=== PATIENT | male | born 1975 | race Caucasian/White ===

== ENCOUNTER → 2016-12-18 11:30 | Inpatient (IN) | payer OTHER ==
[2015-10-07 22:00] VITALS: BP 179/74; PULSE 114; PULSE 115; RESP 12; TEMP 98.1; O2SAT 100
[2015-10-07 22:17] VITALS: O2SAT 95
[2015-10-07] MEDS: HYDROmorphone HCL PF 2 MG/ML VIAL IV PRN (22:18)
[2015-10-08] VITALS (11 sets, daily range): BP systolic 132–164; BP diastolic 64–87; PULSE 79–105; RESP 13–24; TEMP 97.6–98.4; O2SAT 92–99
[2015-10-08 03:55] LABS: HEMATOCRIT 21.7 % (39.0-51.0); MEAN CELL VOLUME 75.8 FL (80.0-100.0); MEAN CORPUSCULAR HEMOGLOBIN 24.9 PG (27.0-34.0); MEAN CORPUSCULAR HGB CONC 32.9 % (32.0-36.0); PLATELET COUNT 193 TH/MM3 (150-450); RED BLOOD COUNT 2.87 MIL/MM3 (4.50-5.90); RED CELL DISTRIBUTION WIDTH 17.1 % (11.6-17.2); WHITE BLOOD COUNT 10.4 TH/MM3 (4.0-11.0)
[2015-10-08 04:00] LABS: REVIEW FLAG FINAL
[2015-10-08 04:04] LABS: ALT (GPT) 44 U/L (12-78); ANION GAP 4 MEQ/L (5-15); AST (GOT) 59 U/L (15-37); BICARBONATE 31.2 MEQ/L (21.0-32.0); BLOOD UREA NITROGEN 18 MG/DL (7-18); CHLORIDE 105 MEQ/L (98-107); GLOMERULAR FILTRATION RATE 114 ML/MIN (>89); POTASSIUM 4.4 MEQ/L (3.5-5.1); SODIUM (NA) 140 MEQ/L (136-145)
[2015-10-08 04:06] LABS: ALKALINE PHOSPHATASE 51 U/L (45-117); TOTAL BILIRUBIN ADULT 1.1 MG/DL (0.2-1.0)
[2015-10-08] MEDS: HYDROmorphone HCL PF 2 MG/ML VIAL IV PRN ×4 (05:54→20:58)
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
[2015-10-08] MEDS: PANTOPRAZOLE SODIUM 40 MG VIAL IV PUSH SCH (09:51)
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
[2015-10-09] VITALS (8 sets, daily range): BP systolic 137–179; BP diastolic 61–83; PULSE 72–115; RESP 17–22; TEMP 98–98.7; O2SAT 91–97
[2015-10-09] MEDS: HYDROmorphone HCL PF 2 MG/ML VIAL IV PRN ×5 (01:42→20:15)
[2015-10-09] MEDS: PANTOPRAZOLE SODIUM 40 MG VIAL IV PUSH SCH (09:01)
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
--- NOTE | 2015-10-09 16:39 | HHI.PR ---
Subjective Subjective Notes No acute changes. Special bed already in place. Objective Vitals/I&O Vital Signs Date Time Temp Pulse Resp B/P Pulse Ox O2 Delivery O2 Flow Rate FiO2 10/09/15 14:00 106 10/09/15 12:00 98.4 18 149/74 95 10/09/15 07:00 Nasal Cannula 2.00 Radiology Last Impressions Knee X-Ray 10/08/15 0000 Signed Impressions: Service Date/Time: Thursday, October 08, 2015 10:21 - CONCLUSION: No significant change in the severely comminuted fracture involving the distal femur. Anthony Billy MD Hand X-Ray 10/08/15 0000 Signed Impressions: Service Date/Time: Thursday, October 08, 2015 05:22 - CONCLUSION: Debris within the soft tissues of the proximal fourth digit. John Mcdonald MD Lungs: Clear A/P Assessment and Plan Assessment: Super Obese tspine fx femur fx Discussed with Dr. Herbert; he will attempt to image with C-arm to assess whether pedicle screws can be placed. Plan: Transfer to floor Davie Barron MD Oct 09, 2015 16:39
[2015-10-10] VITALS: BP 141/74; PULSE 116; RESP 19; TEMP 97; O2SAT 97
[2015-10-10] MEDS: HYDROmorphone HCL PF 2 MG/ML VIAL IV PRN ×6 (00:10→21:56)
[2015-10-10 04:30] VITALS: BP 149/72; PULSE 103; RESP 20; TEMP 97.5; O2SAT 94
[2015-10-10 08:00] VITALS: BP 158/73; PULSE 111; RESP 18; TEMP 96.8; O2SAT 93
[2015-10-10] MEDS: PANTOPRAZOLE SODIUM 40 MG VIAL IV PUSH SCH (08:10)
[2015-10-10 12:00] VITALS: BP 176/74; PULSE 78; RESP 18; TEMP 97.4; O2SAT 92
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
[2015-10-10 16:00] VITALS: BP 165/96; PULSE 104; RESP 18; TEMP 96.5; O2SAT 95
[2015-10-10] MEDS: ACETAMINOPHEN/HYDROcodone 325 MG/5 MG TAB PO PRN (19:34)
[2015-10-10 20:00] VITALS: BP 149/67; PULSE 84; RESP 24; TEMP 96.5; O2SAT 95
[2015-10-11] VITALS (11 sets, daily range): BP systolic 132–170; BP diastolic 58–97; PULSE 89–108; RESP 20–24; TEMP 96.1–98.7; O2SAT 92–100
[2015-10-11] MEDS: ACETAMINOPHEN/HYDROcodone 325 MG/5 MG TAB PO PRN (01:35)
[2015-10-11] MEDS: HYDROmorphone HCL PF 2 MG/ML VIAL IV PRN (02:19)
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
[2015-10-11] MEDS: PANTOPRAZOLE SODIUM 40 MG VIAL IV PUSH SCH (09:00)
--- NOTE | 2015-10-11 11:22 | PD.RAD ---
Post Procedure Progress Note Pre Procedure Diagnosis: (1) Trauma Post Procedure Diagnosis: (1) Trauma Procedure Date: Oct 11, 2015 Supervising Radiologist: Andrei Alva Proceduralist/Assist: RT Ludin(R)() Anesthesia: Local, Conscious Sedation Plan of Activity Patient to Unit: Critical Care Patient Condition: Critical See PACS Report for procedural detail/treatment Vascular-Venous Procedure Procedure 1 Procedure(s): Permanent IVC Filter Access Access Site(s): Right Jugular Vein Closure Site(s): Right manual pressure Additional Detail: Duran VenaTech LP filter placed Andrei Alva MD Oct 11, 2015 11:22
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
[2015-10-11 12:08] LABS: BICARBONATE 29.4 MEQ/L (21.0-32.0); POTASSIUM 4.2 MEQ/L (3.5-5.1)
[2015-10-11 13:20] LABS: HEMATOCRIT 22.4 % (39.0-51.0); MEAN CELL VOLUME 74.1 FL (80.0-100.0); MEAN CORPUSCULAR HEMOGLOBIN 24.8 PG (27.0-34.0); MEAN CORPUSCULAR HGB CONC 33.5 % (32.0-36.0); PLATELET COUNT 207 TH/MM3 (150-450); RED BLOOD COUNT 3.02 MIL/MM3 (4.50-5.90); WHITE BLOOD COUNT 8.3 TH/MM3 (4.0-11.0)
[2015-10-11] MEDS: ceFAZolin 2 GM PREMIX 50 ML ONE (14:10)
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
--- NOTE | 2015-10-11 16:16 | PD.OP ---
cc: Sudheer Garcia MD Operative Report Date of Surgery: Oct 11, 2015 Preoperative Diagnosis: Displaced left distal femur intra-articular fracture Postoperative Diagnosis: Procedure: ORIF left distal femur Anesthesia: GETA Surgeon: Sudheer Garcia Radiologist Physician(s): Lewis Carey PA-C The surgical procedure was assisted by my physician assistant community manager. My P.A. presence was necessary throughout this case for the manipulation and positioning of the surgical extremity. My P.A. was assisting me throughout the duration of this procedure. The skill set of a physician assistant community manager was medically necessary to complete this procedure. During the surgical case the certified surgical assistant was working at the back table and the physician assistant community manager was directly assisting me. Operation and Findings: Informed consent was obtained, operative site was marked. Patient was brought to the OR, placed on OR table, and given IV sedation with GETA. IV antibiotics were administered and timeout procedure was performed. The operative leg was prepped with alcohol, followed with Hibiclens, draped in usual sterile fashion. A timeout procedure was performed. The procedure began with a 12-inch incision over the lateral aspect of the distal femur. Subcutaneous tissue was dissected with Bovie. The subcutaneous layer was approximately 3 inches thick. A Charnley retractor was used to help retract soft tissue. Iliotibial band was split in line with fibers. At this point the fracture was visualized. Traction was applied. Fracture was manipulated. The fracture reduced into excellent alignment. Steinmann pins were used to hold provisional fixation. At this point attention was turned to plate placement. A lateral condylar plate placed along the lateral aspect of the femur.. The plate was placed underneath the vastus lateralis. Steinmann pins were used to hold the plate to bone. Multiplanar fluoroscopy confirmed appropriate placement of plate. Multiple 4.5 cortical screws were now placed and the plate was compressed to bone. Multiple locking screws were now placed in the distal segment of the distal femur. Additional locking screws were placed into the femoral shaft. All screws were predrilled and premeasured for appropriate length. Final fluoroscopy revealed excellent alignment of fracture with well-placed hardware. Wound was thoroughly irrigated. Fascia was closed with #1 Vicryl. Subcutaneous tissue was closed with 3-0 Vicryl. Skin was closed with zaheer. Sterile dressings were applied. The patient was placed into a splint and transferred to recovery in stable condition. Needle and sponge counts were correct. This patient's obesity made the procedure extremely difficult. Patient weighs over 600 pounds. The special bariatric bed was utilized. 2 extra assistance were required for the duration of this procedure to help manipulate patient's extremely large extremities. Approximately 6 release were required for patient transfer. Sudheer Garcia MD Oct 11, 2015 16:16
[2015-10-11] MEDS: LACTATED RINGER'S 1000 ML INJ 1,000 ML IV SCH (17:40)
--- NOTE | 2015-10-11 18:00 | RADRPT ---
EXAM DATE/TIME: 10/11/2015 17:34 [facility] COMPARISON: CHEST SINGLE AP, October 05, 2015, 9:41. INDICATIONS : Respiratory Distress. MEDICAL HISTORY : Unobtainable. SURGICAL HISTORY : Unobtainable. ENCOUNTER: Subsequent ACUITY: 1 week PAIN SCORE: Non-responsive. LOCATION: Bilateral chest FINDINGS: There is an endotracheal tube in place which appears to be in good position and there is no pneumotho rax. There is haziness overlying the right hemithorax. The left upper lung is clear. There is some pa renchymal infiltrate left lung base. The heart size is diffusely enlarged but stable compared to the prior study. The bony structures are stable. CONCLUSION: The endotracheal tube appears to be in good position. No pneumothorax. Haziness over the right hemith orax which could be a right effusion. There is suggestion of an infiltrate in the left lung base. Anthony Billy MD on October 11, 2015 at 17:57 Board Certified Radiologist. This report was verified electronically.
[2015-10-11 18:09] LABS: BLOOD GAS BASE EXCESS 0.3 mmol/L (-2-2); BLOOD GAS CARBOXYHEMOGLOBIN 3.1 % (0-4); BLOOD GAS HCO3 27 mmol/L (22-26); BLOOD GAS METHEMOGLOBIN 0.8 % (0-2); BLOOD GAS O2 HGB SATURATION 94 % (90-100); BLOOD GAS PCO2 72 mmHg (38-42); BLOOD GAS PO2 118 mmHg (61-120); BLOOD GAS TOTAL HGB 7.4 G/DL (12.0-16.0); TEMP CORR TO 98.6
[2015-10-11 18:10] LABS: OXYGEN DEVICE VENTILATOR
[2015-10-11 18:11] LABS: DRAW SITE ART LINE; FIO2 70 %; STAT NO; VENT SETTINGS CPAP 15/5
[2015-10-11 18:16] LABS: REVIEW FLAG FINAL
[2015-10-11 18:43] LABS: BLOOD GAS BASE EXCESS 1.1 mmol/L (-2-2); BLOOD GAS CARBOXYHEMOGLOBIN 3.2 % (0-4); BLOOD GAS HCO3 26 mmol/L (22-26); BLOOD GAS METHEMOGLOBIN 0.8 % (0-2); BLOOD GAS O2 HGB SATURATION 89 % (90-100); BLOOD GAS OXYGEN CONTENT 10.2 Vol % (12.0-20.0); BLOOD GAS PCO2 52 mmHg (38-42); BLOOD GAS PO2 74 mmHg (61-120); BLOOD GAS TOTAL HGB 8.1 G/DL (12.0-16.0); TEMP CORR TO 98.6
[2015-10-11 18:44] LABS: CRITICAL VALUE YES; DRAW SITE ART LINE; FIO2 40 %; OXYGEN DEVICE VENTILATOR; STAT NO; VENT SETTINGS A/C20/650 PEEP8
[2015-10-11] MEDS: DOCUSATE SODIUM 50 MG/SENNA 8.6 MG TAB PO SCH (20:50)
[2015-10-11] MEDS: ceFAZolin 2 GM PREMIX 50 ML IV SCH (21:00)
[2015-10-11] MEDS: PCA - TOTAL MG MORPHINE DELIVERED PER SHIFT SCH (22:00)
[2015-10-11] MEDS: PROPOFOL 1000 MG/100 ML INJ 100 ML IV SCH (23:41)
[2015-10-12] VITALS (19 sets, daily range): BP systolic 112–148; BP diastolic 50–64; PULSE 86–116; RESP 18–24; TEMP 98.2–100.2; O2SAT 90–97
[2015-10-12] MEDS: PROPOFOL 1000 MG/100 ML INJ 100 ML IV SCH ×3 (02:45→07:38)
[2015-10-12] MEDS: VANCOMYCIN INJ 1,000 MG in SODIUM CHLOR 0.9% 250 ML INJ 250 ML IV SCH ×2 (02:48→14:41)
[2015-10-12] MEDS: CHLORHEXIDINE GLUCONATE 2 % 1 PACK (2 CLOTHS) TOP SCH (04:00)
[2015-10-12 05:14] LABS: AUTOMATED NEUTROPHIL # 9.7 TH/MM3 (1.8-7.7); BASOPHIL # 0.1 TH/MM3 (0-0.2); BASOPHIL % 0.5 % (0.0-2.0); EOSINOPHIL % 0.3 % (0.0-4.0); HEMATOCRIT 23.6 % (39.0-51.0); LYMPH % 8.1 % (9.0-44.0); LYMPHOCYTE # 0.9 TH/MM3 (1.0-4.8); MEAN CELL VOLUME 76.7 FL (80.0-100.0); MEAN CORPUSCULAR HEMOGLOBIN 25.5 PG (27.0-34.0); MEAN CORPUSCULAR HGB CONC 33.2 % (32.0-36.0); MONO % 5.5 % (0.0-8.0); NEUT % 85.6 % (16.0-70.0); PLATELET COUNT 216 TH/MM3 (150-450); RED BLOOD COUNT 3.07 MIL/MM3 (4.50-5.90); RED CELL DISTRIBUTION WIDTH 20.1 % (11.6-17.2); WHITE BLOOD COUNT 11.4 TH/MM3 (4.0-11.0)
[2015-10-12 05:26] LABS: BLOOD GAS CARBOXYHEMOGLOBIN 3.3 % (0-4); BLOOD GAS HCO3 29 mmol/L (22-26); BLOOD GAS METHEMOGLOBIN 0.8 % (0-2); BLOOD GAS O2 HGB SATURATION 89 % (90-100); BLOOD GAS OXYGEN CONTENT 9.6 Vol % (12.0-20.0); BLOOD GAS PCO2 48 mmHg (38-42); BLOOD GAS PO2 66 mmHg (61-120); BLOOD GAS TOTAL HGB 7.6 G/DL (12.0-16.0); CRITICAL VALUE YES; OXYGEN DEVICE VENTILATOR; TEMP CORR TO 98.6
[2015-10-12] MEDS: PCA - TOTAL MG MORPHINE DELIVERED PER SHIFT SCH ×3 (05:26→20:42)
[2015-10-12] MEDS: LACTATED RINGER'S 1000 ML INJ 1,000 ML IV SCH (05:26)
[2015-10-12 05:27] LABS: DRAW SITE ART LINE; FIO2 40 %; STAT NO; VENT SETTINGS AC 24/650/8PEEP
[2015-10-12] MEDS: ceFAZolin 2 GM PREMIX 50 ML IV SCH ×3 (05:27→20:41)
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
[2015-10-12 05:49] LABS: BICARBONATE 30.9 MEQ/L (21.0-32.0); POTASSIUM 4.7 MEQ/L (3.5-5.1)
[2015-10-12 05:50] LABS: HEMO FLAGS AUTO DIFF
[2015-10-12 07:20] LABS: BANDS 3 % (0-6); BASOPHILS 1 % (0-2); CORRECTED NUCLEATED RBC 2 /100 WBC (0-0); EOSINOPHILS 1 % (0-4); MYELOCYTES 1 % (0-0); NEUTROPHIL # MANUAL DIFF 9.6 TH/MM3 (1.8-7.7); POLYS (SEG NEUTROPHILS) 80 % (16-70); WBC DIFF SAMPLE 100
[2015-10-12 07:21] LABS: PLATELET ESTIMATE SMEAR NORMAL (NORMAL); PLATELET MORPHOLOGY NORMAL (NORMAL); SCAN/DIFF FINAL DIFF MANUAL
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
[2015-10-12] MEDS: DEXMEDETOMIDINE INJ 50 ML IV SCH ×2 (08:16→12:38)
[2015-10-12] MEDS: SODIUM CHLORIDE 0.9% FLUSH 5 ML FLUSH IVF SCH ×2 (08:24→20:33)
[2015-10-12] MEDS: PANTOPRAZOLE SODIUM 40 MG VIAL IV PUSH SCH (08:24)
[2015-10-12] MEDS: ARTIFICIAL TEARS OPTH SOLN 15 ML BTL EACH EYE SCH ×3 (08:24→17:46)
[2015-10-12] MEDS: DOCUSATE SODIUM 50 MG/SENNA 8.6 MG TAB PO SCH ×2 (08:25→20:33)
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
[2015-10-12] MEDS: CHLORHEXIDINE 0.12% (ORAL KIT) 15 ML CUP MT SCH ×2 (08:48→19:55)
[2015-10-12 09:08] LABS: BLOOD GAS CARBOXYHEMOGLOBIN 2.8 % (0-4); BLOOD GAS HCO3 25 mmol/L (22-26); BLOOD GAS METHEMOGLOBIN 0.8 % (0-2); BLOOD GAS O2 HGB SATURATION 91 % (90-100); BLOOD GAS OXYGEN CONTENT 9.4 Vol % (12.0-20.0); BLOOD GAS PCO2 42 mmHg (38-42); BLOOD GAS PO2 71 mmHg (61-120); BLOOD GAS TOTAL HGB 7.3 G/DL (12.0-16.0); CRITICAL VALUE NO; DRAW SITE ART LINE; FIO2 50 %; NUMBER OF ARTERIAL PUNCTURES 0; OXYGEN DEVICE VENTILATOR; STAT NO; TEMP CORR TO 98.6; ULNAR PULSE PRESENT; VENT SETTINGS CPAP/PEEP8/PS10
--- NOTE | 2015-10-12 09:11 | EKG ---
Date Performed: 10/12/2015 Time Performed: 06:52:23 PTAGE: 39 years EKG: SINUS TACHYCARDIA ABNORMAL RHYTHM ECG PREVIOUS TRACING : 10/04/2015 11.41 DOCTOR: Walter Graf Interpretating Date/Time 10/12/2015 09:08:47
[2015-10-12] MEDS: RESP: ALBUTEROL 2.5 MG/IPRATROPIUM 0.5 MG NEB (SCH) NEB ×5 (09:44→23:51)
[2015-10-12] MEDS: HYDROmorphone HCL PF 2 MG/ML VIAL IV PRN ×2 (09:47→23:15)
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
[2015-10-12] MEDS: PIPERACIL-TAZO 4.5 GM PREMIX 100 ML IV SCH ×3 (10:30→22:52)
[2015-10-12] MEDS: POTASSIUM CHLOR 20 MEQ PREMIX 100 ML IV SCH ×2 (10:30→12:39)
--- NOTE | 2015-10-12 11:05 | RADRPT ---
EXAM DATE/TIME: 10/11/2015 13:50 COMPARISON: No previous studies available for comparison. INDICATIONS : Pre-op, level localization for spinal fracture. MEDICAL HISTORY : None. SURGICAL HISTORY : None. ENCOUNTER: Initial ACUITY: 1 week PAIN SCORE: Non-responsive. LOCATION: Bilateral spine FINDINGS: Images are suboptimal because of patient size. I believe it would be impossible to accurately locali ze T8-T9 by fluoroscopy. The skin surface to bone cannot be accurately made under CT because he jennifer ot include skin surface on the scan. . Stephon Carpio MD FACR on October 12, 2015 at 10:56 Board Certified Radiologist. This report was verified electronically.
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
[2015-10-12] MEDS: MUPIROCIN 2% OINT 1 APPLIC/GM SYR EACH NARE SCH ×2 (15:10→20:41)
[2015-10-12] MEDS: ENOXAPARIN SODIUM 60 MG/0.6 ML SYRINGE SQ SCH (16:43)
[2015-10-12] MEDS: ACETAMINOPHEN/HYDROcodone 325 MG/10 MG TAB PO PRN (20:42)
[2015-10-13] VITALS (15 sets, daily range): BP systolic 53–169; BP diastolic 64–77; PULSE 74–107; RESP 18–25; TEMP 97.2–98.2; O2SAT 94–99
[2015-10-13] MEDS: ACETAMINOPHEN/HYDROcodone 325 MG/10 MG TAB PO PRN (02:16)
[2015-10-13] MEDS: VANCOMYCIN INJ 1,000 MG in SODIUM CHLOR 0.9% 250 ML INJ 250 ML IV SCH ×2 (02:17→14:11)
[2015-10-13] MEDS: CHLORHEXIDINE GLUCONATE 2 % 1 PACK (2 CLOTHS) TOP SCH (04:00)
[2015-10-13] MEDS: PIPERACIL-TAZO 4.5 GM PREMIX 100 ML IV SCH ×3 (04:14→16:25)
[2015-10-13] MEDS: ENOXAPARIN SODIUM 60 MG/0.6 ML SYRINGE SQ SCH (04:15)
[2015-10-13] MEDS: RESP: ALBUTEROL 2.5 MG/IPRATROPIUM 0.5 MG NEB (SCH) NEB ×5 (04:27→20:46)
[2015-10-13] MEDS: PCA - TOTAL MG MORPHINE DELIVERED PER SHIFT SCH (04:52)
[2015-10-13] MEDS: ceFAZolin 2 GM PREMIX 50 ML IV SCH ×2 (04:54→14:11)
[2015-10-13] MEDS: HYDROmorphone HCL PF 2 MG/ML VIAL IV PRN ×5 (05:07→22:33)
--- NOTE | 2015-10-13 07:56 | PD.ORT.PN ---
Subjective Subjective Remarks POD 2 s/p ORIF left femur awake and alert. reports minimal pain. resting comfortably. states occasionally has a muscle spasm if left leg Objective Vitals Vital Signs Date Time Temp Pulse Resp B/P Pulse Ox O2 Delivery O2 Flow Rate FiO2 10/13/15 07:00 Nasal Cannula 4.00 10/13/15 06:00 94 10/13/15 04:00 98.2 106 18 146/73 95 10/13/15 04:00 106 10/13/15 02:00 106 10/13/15 00:00 98.2 106 18 156/68 94 10/13/15 00:00 107 10/12/15 22:00 106 10/12/15 20:42 18 10/12/15 20:00 98.2 106 18 139/64 92 Arterial Line 10/12/15 20:00 106 10/12/15 19:27 92 Nasal Cannula 4.00 10/12/15 19:00 Nasal Cannula 4.00 10/12/15 18:09 109 10/12/15 16:00 93 10/12/15 16:00 99.0 93 21 127/60 92 10/12/15 14:00 88 10/12/15 12:16 90 Nasal Cannula 4.00 10/12/15 12:00 93 Venturi Mask 50 10/12/15 12:00 88 10/12/15 12:00 99.4 88 24 112/52 94 10/12/15 10:00 86 10/12/15 09:22 90 Venturi Mask 50 10/12/15 08:00 Mechanical Ventilator 50 10/12/15 08:00 116 10/12/15 08:00 100.2 116 24 148/56 93 I/O 10/12/15 10/12/15 10/12/15 10/13/15 10/13/15 10/13/15 06:59 14:59 22:59 06:59 14:59 22:59 Intake Total 1954 ml 1314 ml 1603 ml Output Total 950 ml 900 ml 825 ml Balance 1004 ml 414 ml 778 ml Intake Oral 200 ml 1000 ml IV Total 1704 ml 1114 ml 603 ml Packed Cells 250 ml Output Urine Total 950 ml 900 ml 825 ml # Bowel Movements 0 0 Result Diagram: 10/12/15 0500 10/12/15 0500 Objective Remarks LLE: morbidly obese. +cap refill. splint intact. clean and dry. Assessment & Plan Assessment and Plan 1) Left Distal femur Fx - POD 2 s/p ORIF -NWB -maintain dressings and splint 2) Spinal Fx - Dr Herbert to manage 3) Left Tibia wounds -trauma team to manage dressings Lewis Carey Oct 13, 2015 07:56
[2015-10-13] MEDS: CHLORHEXIDINE 0.12% (ORAL KIT) 15 ML CUP MT SCH ×2 (08:00→20:00)
[2015-10-13] MEDS: MUPIROCIN 2% OINT 1 APPLIC/GM SYR EACH NARE SCH ×2 (09:41→20:53)
[2015-10-13] MEDS: PANTOPRAZOLE SODIUM 40 MG VIAL IV PUSH SCH (09:42)
[2015-10-13] MEDS: DOCUSATE SODIUM 50 MG/SENNA 8.6 MG TAB PO SCH ×2 (09:42→20:53)
[2015-10-13] MEDS: ARTIFICIAL TEARS OPTH SOLN 15 ML BTL EACH EYE SCH ×3 (09:42→16:25)
[2015-10-13] MEDS: SODIUM CHLORIDE 0.9% FLUSH 5 ML FLUSH IVF SCH ×2 (09:42→20:53)
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
--- NOTE | 2015-10-13 13:58 | RADRPT ---
EXAM DATE/TIME: 10/13/2015 13:08 [facility] COMPARISON: CHEST SINGLE AP, October 12, 2015, 7:39. INDICATIONS : Infiltrate. MEDICAL HISTORY : None. SURGICAL HISTORY : None. ENCOUNTER: Initial ACUITY: 4 - 6 days PAIN SCORE: 0/10 LOCATION: Bilateral chest FINDINGS: There is stable haziness over the right lung suggestive of an effusion. There is no pneumothorax. The left lung appears to be grossly clear. The heart size is enlarged but stable. The previously noted e ndotracheal tube has been removed. There is no pneumothorax. CONCLUSION: Right-sided pleural effusion. Left lung appears to be grossly clear. Anthony Billy MD on October 13, 2015 at 13:55 Board Certified Radiologist. This report was verified electronically.
[2015-10-13 14:10] LABS: AUTOMATED NEUTROPHIL # 8.4 TH/MM3 (1.8-7.7); BASOPHIL # 0.1 TH/MM3 (0-0.2); BASOPHIL % 0.5 % (0.0-2.0); EOSINOPHIL # 0.3 TH/MM3 (0-0.4); EOSINOPHIL % 2.6 % (0.0-4.0); HEMATOCRIT 23.2 % (39.0-51.0); LYMPH % 9.6 % (9.0-44.0); MEAN CELL VOLUME 77.9 FL (80.0-100.0); MEAN CORPUSCULAR HEMOGLOBIN 25.6 PG (27.0-34.0); MEAN CORPUSCULAR HGB CONC 32.8 % (32.0-36.0); MONO % 7.8 % (0.0-8.0); NEUT % 79.5 % (16.0-70.0); PLATELET COUNT 209 TH/MM3 (150-450); RED BLOOD COUNT 2.98 MIL/MM3 (4.50-5.90); WHITE BLOOD COUNT 10.6 TH/MM3 (4.0-11.0)
[2015-10-13 14:13] LABS: HEMO FLAGS AUTO DIFF
[2015-10-13 14:38] LABS: ALT (GPT) 21 U/L (12-78); ANION GAP 7 MEQ/L (5-15); AST (GOT) 44 U/L (15-37); BLOOD UREA NITROGEN 28 MG/DL (7-18); CHLORIDE 101 MEQ/L (98-107); GLOMERULAR FILTRATION RATE 36 ML/MIN (>89); MAGNESIUM 2.3 MG/DL (1.5-2.5); POTASSIUM 4.4 MEQ/L (3.5-5.1); SODIUM (NA) 137 MEQ/L (136-145)
[2015-10-13 14:39] LABS: ALKALINE PHOSPHATASE 63 U/L (45-117); BANDS 6 % (0-6); CORRECTED NUCLEATED RBC 1 /100 WBC (0-0); EOSINOPHILS 1 % (0-4); NEUTROPHIL # MANUAL DIFF 8.5 TH/MM3 (1.8-7.7); POLYS (SEG NEUTROPHILS) 74 % (16-70); TOTAL BILIRUBIN ADULT 0.9 MG/DL (0.2-1.0); WBC DIFF SAMPLE 100
[2015-10-13 14:40] LABS: OVALOCYTES 1+ (NORMAL); PLATELET ESTIMATE SMEAR NORMAL (NORMAL); PLATELET MORPHOLOGY NORMAL (NORMAL); POLYCHROMASIA 2.9 % (0.0-1.9); SCAN/DIFF FINAL DIFF MANUAL
[2015-10-13] MEDS: ENOXAPARIN SODIUM 30 MG/0.3 ML SYRINGE SQ SCH (16:24)
[2015-10-13] MEDS: SODIUM CHLOR 0.9% 1000 ML INJ 1,000 ML IV SCH (16:55)
[2015-10-14] VITALS (10 sets, daily range): BP systolic 135–162; BP diastolic 64–77; PULSE 72–110; RESP 14–24; TEMP 97.8–98.8; O2SAT 90–98
[2015-10-14] MEDS: PIPERACIL-TAZO 4.5 GM PREMIX 100 ML IV SCH ×3 (01:15→17:39)
[2015-10-14] MEDS: HYDROmorphone HCL PF 2 MG/ML VIAL IV PRN ×5 (02:50→19:54)
[2015-10-14] MEDS: ENOXAPARIN SODIUM 30 MG/0.3 ML SYRINGE SQ SCH ×2 (03:07→16:41)
[2015-10-14] MEDS: CHLORHEXIDINE GLUCONATE 2 % 1 PACK (2 CLOTHS) TOP SCH (04:00)
[2015-10-14] MEDS: RESP: ALBUTEROL 2.5 MG/IPRATROPIUM 0.5 MG NEB (SCH) NEB ×4 (04:16→21:10)
--- NOTE | 2015-10-14 07:53 | PD.ORT.PN ---
Subjective Subjective Remarks POD 3 s/p ORIF left femur awake and alert. reports minimal pain. resting comfortably. states occasionally has a muscle spasm if left leg Objective Vitals Vital Signs Date Time Temp Pulse Resp B/P Pulse Ox O2 Delivery O2 Flow Rate FiO2 10/14/15 06:00 92 10/14/15 04:00 98.2 98 18 150/65 96 10/14/15 04:00 98 10/14/15 02:00 88 10/14/15 00:00 97.8 82 16 162/65 94 10/14/15 00:00 82 10/13/15 22:00 82 10/13/15 20:49 99 Nasal Cannula 2.50 10/13/15 20:00 74 10/13/15 20:00 97.6 95 18 153/66 94 10/13/15 19:00 96 Nasal Cannula 4.00 10/13/15 18:00 92 10/13/15 16:00 97.2 92 18 169/77 95 10/13/15 16:00 92 10/13/15 14:00 96 10/13/15 12:00 92 10/13/15 12:00 97.9 92 25 152/64 95 10/13/15 11:59 95 Nasal Cannula 2.00 10/13/15 10:00 100 10/13/15 08:21 94 Nasal Cannula 4.00 10/13/15 08:00 97.9 102 19 134/71 95 10/13/15 08:00 105 I/O 10/13/15 10/13/15 10/13/15 10/14/15 10/14/15 10/14/15 07:00 15:00 23:00 07:00 15:00 23:00 Intake Total 720 ml 1200 ml 819 ml 710 ml Output Total 500 ml 50 ml 3800 ml 2400 ml Balance 220 ml 1150 ml -2981 ml -1690 ml Intake Oral 400 ml 600 ml 460 ml 360 ml Oral Supplement 100 ml IV Total 320 ml 600 ml 259 ml 350 ml Output Urine Total 500 ml 50 ml 3800 ml 2400 ml # Bowel Movements 0 0 0 0 Result Diagram: 10/13/15 1348 10/13/15 1348 Objective Remarks LLE: morbidly obese. +cap refill. splint intact. clean and dry. Assessment & Plan Assessment and Plan 1) Left Distal femur Fx - POD 3 s/p ORIF -NWB -maintain dressings and splint 2) Spinal Fx - Dr Herbert to manage 3) Left Tibia wounds -trauma team to manage dressings Lewis Carey Oct 14, 2015 07:53
[2015-10-14] MEDS: CHLORHEXIDINE 0.12% (ORAL KIT) 15 ML CUP MT SCH ×2 (08:00→19:55)
[2015-10-14] MEDS: MUPIROCIN 2% OINT 1 APPLIC/GM SYR EACH NARE SCH ×2 (08:34→19:54)
[2015-10-14] MEDS: PANTOPRAZOLE SODIUM 40 MG VIAL IV PUSH SCH (08:34)
[2015-10-14] MEDS: DOCUSATE SODIUM 50 MG/SENNA 8.6 MG TAB PO SCH ×2 (08:34→19:54)
[2015-10-14] MEDS: ARTIFICIAL TEARS OPTH SOLN 15 ML BTL EACH EYE SCH ×3 (08:35→17:39)
[2015-10-14] MEDS: SODIUM CHLORIDE 0.9% FLUSH 5 ML FLUSH IVF SCH ×2 (08:35→19:55)
--- NOTE | 2015-10-14 08:53 | RADRPT ---
EXAM DATE/TIME: 10/14/2015 08:23 [facility] COMPARISON: SPINE LUMBAR AP ONLY, October 11, 2015, 13:50. CHEST SINGLE AP, October 13, 2015, 13:08. INDICATIONS : Short of breath. MEDICAL HISTORY : None. SURGICAL HISTORY : None. ENCOUNTER: Subsequent ACUITY: 2 days PAIN SCORE: 0/10 LOCATION: chest FINDINGS: Hazy opacity is noted over the right chest, potentially parenchymal disease and layering effusion. Th e appearance is very similar to previous. Cardiomediastinal contours are grossly stable. CONCLUSION: Hazy right lung parenchymal opacity. Andrei Alva MD on October 14, 2015 at 8:49 Board Certified Radiologist. This report was verified electronically.
[2015-10-14 10:22] LABS: AUTOMATED NEUTROPHIL # 6.2 TH/MM3 (1.8-7.7); BASOPHIL % 0.5 % (0.0-2.0); EOSINOPHIL # 0.3 TH/MM3 (0-0.4); EOSINOPHIL % 4.1 % (0.0-4.0); HEMATOCRIT 23.2 % (39.0-51.0); LYMPH % 14.2 % (9.0-44.0); LYMPHOCYTE # 1.2 TH/MM3 (1.0-4.8); MEAN CORPUSCULAR HEMOGLOBIN 25.4 PG (27.0-34.0); MEAN CORPUSCULAR HGB CONC 32.2 % (32.0-36.0); MONO % 6.2 % (0.0-8.0); PLATELET COUNT 198 TH/MM3 (150-450); RED BLOOD COUNT 2.93 MIL/MM3 (4.50-5.90); RED CELL DISTRIBUTION WIDTH 20.9 % (11.6-17.2); WHITE BLOOD COUNT 8.2 TH/MM3 (4.0-11.0)
[2015-10-14 10:23] LABS: HEMO FLAGS AUTO DIFF
[2015-10-14 10:32] LABS: ANION GAP 7 MEQ/L (5-15); BICARBONATE 28.9 MEQ/L (21.0-32.0); BLOOD UREA NITROGEN 28 MG/DL (7-18); CHLORIDE 102 MEQ/L (98-107); GLOMERULAR FILTRATION RATE 49 ML/MIN (>89); SODIUM (NA) 138 MEQ/L (136-145)
[2015-10-14 10:35] LABS: ALKALINE PHOSPHATASE 66 U/L (45-117); ALT (GPT) 15 U/L (12-78); AST (GOT) 35 U/L (15-37); TOTAL BILIRUBIN ADULT 0.8 MG/DL (0.2-1.0)
[2015-10-14] MEDS: SODIUM CHLOR 0.9% 1000 ML INJ 1,000 ML IV SCH (10:56)
[2015-10-14 12:27] LABS: OVALOCYTES 1+ (NORMAL); SCAN/DIFF AUTO DIFF CONFIRMED
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
[2015-10-15] VITALS (13 sets, daily range): BP systolic 128–161; BP diastolic 58–68; PULSE 73–110; RESP 14–25; TEMP 97.9–98.7; O2SAT 93–99
[2015-10-15] MEDS: HYDROmorphone HCL PF 2 MG/ML VIAL IV PRN ×7 (00:03→23:59)
--- NOTE | 2015-10-15 01:14 | EKG ---
Date Performed: 10/13/2015 Time Performed: 13:55:10 PTAGE: 39 years EKG: Sinus arrhythmia. Normal ECG PREVIOUS TRACING : 10/12/2015 06.52 Compared to the prior tracing, there has been no significan t serial change. DOCTOR: Oc Vásquez Interpretating Date/Time 08/22/2016 14:40:04
[2015-10-15] MEDS: PIPERACIL-TAZO 4.5 GM PREMIX 100 ML IV SCH ×3 (02:34→18:28)
[2015-10-15] MEDS: CHLORHEXIDINE GLUCONATE 2 % 1 PACK (2 CLOTHS) TOP SCH (04:00)
[2015-10-15] MEDS: ENOXAPARIN SODIUM 30 MG/0.3 ML SYRINGE SQ SCH ×2 (04:04→16:08)
[2015-10-15] MEDS: RESP: ALBUTEROL 2.5 MG/IPRATROPIUM 0.5 MG NEB (SCH) NEB ×4 (04:20→22:31)
[2015-10-15] MEDS: PANTOPRAZOLE SODIUM 40 MG VIAL IV PUSH SCH (07:56)
[2015-10-15] MEDS: CHLORHEXIDINE 0.12% (ORAL KIT) 15 ML CUP MT SCH ×2 (08:00→20:00)
[2015-10-15] MEDS: ARTIFICIAL TEARS OPTH SOLN 15 ML BTL EACH EYE SCH ×3 (08:23→17:57)
[2015-10-15] MEDS: SODIUM CHLORIDE 0.9% FLUSH 5 ML FLUSH IVF SCH ×2 (08:23→20:00)
[2015-10-15] MEDS: DOCUSATE SODIUM 50 MG/SENNA 8.6 MG TAB PO SCH ×2 (08:23→19:59)
[2015-10-15] MEDS: MUPIROCIN 2% OINT 1 APPLIC/GM SYR EACH NARE SCH ×2 (08:34→19:59)
[2015-10-15] MEDS: ACETAMINOPHEN/HYDROcodone 325 MG/10 MG TAB PO PRN ×3 (11:02→23:59)
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
[2015-10-15 14:16] LABS: AUTOMATED NEUTROPHIL # 5.6 TH/MM3 (1.8-7.7); BASOPHIL % 0.5 % (0.0-2.0); EOSINOPHIL # 0.3 TH/MM3 (0-0.4); EOSINOPHIL % 4.2 % (0.0-4.0); HEMATOCRIT 22.7 % (39.0-51.0); HEMO FLAGS DIFF FINAL; LYMPHOCYTE # 1.1 TH/MM3 (1.0-4.8); MEAN CELL VOLUME 78.2 FL (80.0-100.0); MEAN CORPUSCULAR HEMOGLOBIN 26.1 PG (27.0-34.0); MEAN CORPUSCULAR HGB CONC 33.3 % (32.0-36.0); MONO % 7.2 % (0.0-8.0); NEUT % 74.1 % (16.0-70.0); PLATELET COUNT 205 TH/MM3 (150-450); RED BLOOD COUNT 2.91 MIL/MM3 (4.50-5.90); RED CELL DISTRIBUTION WIDTH 20.4 % (11.6-17.2); WHITE BLOOD COUNT 7.6 TH/MM3 (4.0-11.0)
[2015-10-15 14:26] LABS: BICARBONATE 29.2 MEQ/L (21.0-32.0); POTASSIUM 4.1 MEQ/L (3.5-5.1)
[2015-10-16] VITALS (14 sets, daily range): BP systolic 140–171; BP diastolic 63–97; PULSE 76–102; RESP 18–26; TEMP 97.9–99.5; O2SAT 95–99
[2015-10-16] MEDS: PIPERACIL-TAZO 4.5 GM PREMIX 100 ML IV SCH ×3 (00:03→17:19)
[2015-10-16] MEDS: RESP: ALBUTEROL 2.5 MG/IPRATROPIUM 0.5 MG NEB (SCH) NEB ×4 (03:57→21:06)
[2015-10-16] MEDS: CHLORHEXIDINE GLUCONATE 2 % 1 PACK (2 CLOTHS) TOP SCH (04:00)
[2015-10-16] MEDS: HYDROmorphone HCL PF 2 MG/ML VIAL IV PRN ×5 (04:12→22:00)
[2015-10-16] MEDS: ENOXAPARIN SODIUM 30 MG/0.3 ML SYRINGE SQ SCH ×2 (04:12→16:55)
[2015-10-16] MEDS: CHLORHEXIDINE 0.12% (ORAL KIT) 15 ML CUP MT SCH ×2 (08:00→20:00)
[2015-10-16] MEDS: ACETAMINOPHEN/HYDROcodone 325 MG/10 MG TAB PO PRN ×3 (08:16→16:54)
[2015-10-16] MEDS: ARTIFICIAL TEARS OPTH SOLN 15 ML BTL EACH EYE SCH ×3 (09:00→17:18)
[2015-10-16] MEDS: SODIUM CHLORIDE 0.9% FLUSH 5 ML FLUSH IVF SCH ×2 (10:57→21:00)
[2015-10-16] MEDS: DOCUSATE SODIUM 50 MG/SENNA 8.6 MG TAB PO SCH ×2 (10:57→21:48)
[2015-10-16] MEDS: PANTOPRAZOLE SODIUM 40 MG VIAL IV PUSH SCH (10:57)
[2015-10-16] MEDS: MUPIROCIN 2% OINT 1 APPLIC/GM SYR EACH NARE SCH ×2 (10:58→21:48)
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
[2015-10-17] VITALS (13 sets, daily range): BP systolic 118–162; BP diastolic 56–90; PULSE 78–110; RESP 15–25; TEMP 97.7–99.6; O2SAT 92–100
[2015-10-17] MEDS: PIPERACIL-TAZO 4.5 GM PREMIX 100 ML IV SCH ×3 (02:50→17:17)
[2015-10-17] MEDS: RESP: ALBUTEROL 2.5 MG/IPRATROPIUM 0.5 MG NEB (SCH) NEB ×3 (04:00→15:45)
[2015-10-17] MEDS: ENOXAPARIN SODIUM 30 MG/0.3 ML SYRINGE SQ SCH ×2 (04:10→15:59)
[2015-10-17] MEDS: HYDROmorphone HCL PF 2 MG/ML VIAL IV PRN ×6 (04:13→21:11)
[2015-10-17] MEDS: CHLORHEXIDINE GLUCONATE 2 % 1 PACK (2 CLOTHS) TOP SCH (05:00)
[2015-10-17] MEDS: CHLORHEXIDINE 0.12% (ORAL KIT) 15 ML CUP MT SCH ×2 (08:00→20:00)
[2015-10-17] MEDS: ARTIFICIAL TEARS OPTH SOLN 15 ML BTL EACH EYE SCH ×3 (08:05→17:18)
[2015-10-17] MEDS: DOCUSATE SODIUM 50 MG/SENNA 8.6 MG TAB PO SCH ×2 (08:06→21:11)
[2015-10-17] MEDS: PANTOPRAZOLE SOD 40 MG DELAYED RELEASE TAB PO SCH (08:06)
[2015-10-17] MEDS: MUPIROCIN 2% OINT 1 APPLIC/GM SYR EACH NARE SCH ×3 (08:06→21:10)
[2015-10-17] MEDS: SODIUM CHLORIDE 0.9% FLUSH 5 ML FLUSH IVF SCH ×2 (08:07→21:10)
--- NOTE | 2015-10-17 09:17 | RADRPT ---
EXAM DATE/TIME: 10/17/2015 08:21 [facility] COMPARISON: CHEST SINGLE AP, October 14, 2015, 8:23. INDICATIONS : Short of breath, infiltrate MEDICAL HISTORY : None. SURGICAL HISTORY : None. ENCOUNTER: Subsequent ACUITY: 4 - 6 days PAIN SCORE: 0/10 LOCATION: Bilateral chest FINDINGS: Bilateral airspace opacities persist, fairly diffuse on the right and basilar predominant on the left . A small right pleural effusion is suspected as well. I don't see a significant change. No evidence of pneumothorax. Mild cardiomegaly is stable. CONCLUSION: Bilateral airspace opacities persist without significant change. Andrei Pérez MD on October 17, 2015 at 9:14 Board Certified Radiologist. This report was verified electronically.
[2015-10-17] MEDS: ACETAMINOPHEN/HYDROcodone 325 MG/10 MG TAB PO PRN ×2 (09:53→15:59)
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
[2015-10-18] VITALS: BP 155/72; PULSE 113; RESP 19; TEMP 96.2; O2SAT 92
[2015-10-18] MEDS: CHLORHEXIDINE GLUCONATE 2 % 1 PACK (2 CLOTHS) TOP SCH (01:47)
[2015-10-18] MEDS: ENOXAPARIN SODIUM 30 MG/0.3 ML SYRINGE SQ SCH ×2 (01:47→15:09)
[2015-10-18] MEDS: PIPERACIL-TAZO 4.5 GM PREMIX 100 ML IV SCH ×3 (01:47→16:34)
[2015-10-18] MEDS: HYDROmorphone HCL PF 2 MG/ML VIAL IV PRN ×5 (01:48→23:14)
[2015-10-18 04:42] LABS: AUTOMATED NEUTROPHIL # 5.9 TH/MM3 (1.8-7.7); BASOPHIL # 0.1 TH/MM3 (0-0.2); BASOPHIL % 0.9 % (0.0-2.0); EOSINOPHIL # 0.4 TH/MM3 (0-0.4); EOSINOPHIL % 4.4 % (0.0-4.0); HEMATOCRIT 25.3 % (39.0-51.0); HEMO FLAGS DIFF FINAL; LYMPH % 15.5 % (9.0-44.0); LYMPHOCYTE # 1.3 TH/MM3 (1.0-4.8); MEAN CELL VOLUME 77.9 FL (80.0-100.0); MEAN CORPUSCULAR HEMOGLOBIN 25.2 PG (27.0-34.0); MEAN CORPUSCULAR HGB CONC 32.4 % (32.0-36.0); MONO % 6.1 % (0.0-8.0); NEUT % 73.1 % (16.0-70.0); PLATELET COUNT 241 TH/MM3 (150-450); RED BLOOD COUNT 3.24 MIL/MM3 (4.50-5.90); WHITE BLOOD COUNT 8.1 TH/MM3 (4.0-11.0)
[2015-10-18 05:09] LABS: BICARBONATE 32.3 MEQ/L (21.0-32.0); POTASSIUM 4.4 MEQ/L (3.5-5.1)
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
[2015-10-18 07:37] VITALS: O2SAT 96
[2015-10-18 08:00] VITALS: BP 140/72; PULSE 96; RESP 15; TEMP 96.3; O2SAT 95
[2015-10-18] MEDS: CHLORHEXIDINE 0.12% (ORAL KIT) 15 ML CUP MT SCH ×2 (08:00→20:00)
[2015-10-18] MEDS: ACETAMINOPHEN/HYDROcodone 325 MG/10 MG TAB PO PRN ×3 (08:13→21:45)
[2015-10-18] MEDS: DOCUSATE SODIUM 50 MG/SENNA 8.6 MG TAB PO SCH ×2 (08:13→21:46)
[2015-10-18] MEDS: MUPIROCIN 2% OINT 1 APPLIC/GM SYR EACH NARE SCH ×2 (08:13→21:00)
[2015-10-18] MEDS: PANTOPRAZOLE SOD 40 MG DELAYED RELEASE TAB PO SCH (08:13)
[2015-10-18] MEDS: SODIUM CHLORIDE 0.9% FLUSH 5 ML FLUSH IVF SCH ×2 (08:15→21:46)
[2015-10-18] MEDS: ARTIFICIAL TEARS OPTH SOLN 15 ML BTL EACH EYE SCH ×3 (08:16→16:35)
[2015-10-18] MEDS: POLYETHYLENE GLYCOL 17 GM PKG PO SCH (10:54)
[2015-10-18 12:00] VITALS: BP 139/68; PULSE 81; RESP 16; TEMP 97; O2SAT 95
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
[2015-10-18 16:00] VITALS: BP 152/70; PULSE 105; RESP 18; TEMP 96.9; O2SAT 96
[2015-10-18 20:00] VITALS: BP 141/61; PULSE 98; RESP 20; TEMP 98; O2SAT 93
[2015-10-19] VITALS: BP 142/67; PULSE 113; RESP 20; TEMP 98.1; O2SAT 94
[2015-10-19] MEDS: PIPERACIL-TAZO 4.5 GM PREMIX 100 ML IV SCH ×3 (02:33→16:36)
[2015-10-19] MEDS: CHLORHEXIDINE GLUCONATE 2 % 1 PACK (2 CLOTHS) TOP SCH (02:33)
[2015-10-19] MEDS: ENOXAPARIN SODIUM 30 MG/0.3 ML SYRINGE SQ SCH ×2 (03:18→14:40)
[2015-10-19] MEDS: HYDROmorphone HCL PF 2 MG/ML VIAL IV PRN ×5 (03:18→22:34)
[2015-10-19 05:32] LABS: AUTOMATED NEUTROPHIL # 6.8 TH/MM3 (1.8-7.7); BASOPHIL # 0.2 TH/MM3 (0-0.2); BASOPHIL % 1.9 % (0.0-2.0); EOSINOPHIL # 0.4 TH/MM3 (0-0.4); EOSINOPHIL % 4.8 % (0.0-4.0); HEMATOCRIT 24.6 % (39.0-51.0); LYMPH % 13.2 % (9.0-44.0); LYMPHOCYTE # 1.2 TH/MM3 (1.0-4.8); MEAN CELL VOLUME 78.2 FL (80.0-100.0); MEAN CORPUSCULAR HEMOGLOBIN 25.1 PG (27.0-34.0); MEAN CORPUSCULAR HGB CONC 32.2 % (32.0-36.0); MONO % 5.3 % (0.0-8.0); NEUT % 74.8 % (16.0-70.0); PLATELET COUNT 217 TH/MM3 (150-450); RED BLOOD COUNT 3.14 MIL/MM3 (4.50-5.90); RED CELL DISTRIBUTION WIDTH 20.1 % (11.6-17.2)
[2015-10-19 05:44] LABS: HEMO FLAGS AUTO DIFF
[2015-10-19 07:02] LABS: BANDS 1 % (0-6); BASOPHILS 1 % (0-2); EOSINOPHILS 3 % (0-4); METAMYELOCYTES 1 % (0-1); MYELOCYTES 2 % (0-0); NEUTROPHIL # MANUAL DIFF 6.9 TH/MM3 (1.8-7.7); POLYS (SEG NEUTROPHILS) 73 % (16-70); WBC DIFF SAMPLE 100
[2015-10-19 07:03] LABS: PLATELET ESTIMATE SMEAR NORMAL (NORMAL); PLATELET MORPHOLOGY NORMAL (NORMAL); SCAN/DIFF FINAL DIFF MANUAL
[2015-10-19 08:00] VITALS: BP 132/60; PULSE 96; RESP 16; TEMP 96.4; O2SAT 98
[2015-10-19] MEDS: CHLORHEXIDINE 0.12% (ORAL KIT) 15 ML CUP MT SCH ×2 (08:00→20:00)
[2015-10-19] MEDS: ARTIFICIAL TEARS OPTH SOLN 15 ML BTL EACH EYE SCH ×3 (08:22→16:38)
[2015-10-19] MEDS: ACETAMINOPHEN/HYDROcodone 325 MG/10 MG TAB PO PRN ×2 (08:22→16:36)
[2015-10-19] MEDS: MUPIROCIN 2% OINT 1 APPLIC/GM SYR EACH NARE SCH ×2 (08:22→21:00)
[2015-10-19] MEDS: DOCUSATE SODIUM 50 MG/SENNA 8.6 MG TAB PO SCH ×2 (08:22→22:35)
[2015-10-19] MEDS: PANTOPRAZOLE SOD 40 MG DELAYED RELEASE TAB PO SCH (08:22)
[2015-10-19] MEDS: POLYETHYLENE GLYCOL 17 GM PKG PO SCH (08:22)
[2015-10-19] MEDS: SODIUM CHLORIDE 0.9% FLUSH 5 ML FLUSH IVF SCH ×2 (08:23→22:35)
[2015-10-19 12:00] VITALS: BP 147/77; PULSE 93; RESP 17; TEMP 96.1; O2SAT 96
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
[2015-10-19 15:54] VITALS: BP 149/72; PULSE 94; RESP 19; TEMP 96.2; O2SAT 96
[2015-10-19 20:00] VITALS: BP 177/72; PULSE 99; RESP 18; TEMP 96.6; O2SAT 96
[2015-10-19 23:49] VITALS: BP 138/71; PULSE 74; RESP 18; TEMP 97.2; O2SAT 100
[2015-10-20] MEDS: ACETAMINOPHEN/HYDROcodone 325 MG/10 MG TAB PO PRN ×3 (00:29→13:54)
[2015-10-20] MEDS: PIPERACIL-TAZO 4.5 GM PREMIX 100 ML IV SCH ×2 (02:32→08:08)
[2015-10-20] MEDS: HYDROmorphone HCL PF 2 MG/ML VIAL IV PRN ×5 (02:32→20:12)
[2015-10-20] MEDS: ENOXAPARIN SODIUM 30 MG/0.3 ML SYRINGE SQ SCH ×2 (04:00→16:12)
[2015-10-20] MEDS: CHLORHEXIDINE GLUCONATE 2 % 1 PACK (2 CLOTHS) TOP SCH (04:00)
[2015-10-20] MEDS: CHLORHEXIDINE 0.12% (ORAL KIT) 15 ML CUP MT SCH ×2 (07:29→20:00)
[2015-10-20 08:00] VITALS: BP 139/64; PULSE 64; RESP 24; TEMP 96.7; O2SAT 92
[2015-10-20] MEDS: PANTOPRAZOLE SOD 40 MG DELAYED RELEASE TAB PO SCH (08:08)
[2015-10-20] MEDS: DOCUSATE SODIUM 50 MG/SENNA 8.6 MG TAB PO SCH ×2 (08:08→20:14)
[2015-10-20] MEDS: SODIUM CHLORIDE 0.9% FLUSH 5 ML FLUSH IVF SCH ×2 (08:12→20:15)
[2015-10-20] MEDS: MUPIROCIN 2% OINT 1 APPLIC/GM SYR EACH NARE SCH ×2 (08:13→20:15)
[2015-10-20] MEDS: ARTIFICIAL TEARS OPTH SOLN 15 ML BTL EACH EYE SCH ×3 (08:13→16:13)
[2015-10-20] MEDS: POLYETHYLENE GLYCOL 17 GM PKG PO SCH (08:16)
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
--- NOTE | 2015-10-20 09:54 | RADRPT ---
EXAM DATE/TIME: 10/20/2015 09:04 [facility] COMPARISON: No previous studies available for comparison. INDICATIONS : Evaluate left knee post surgery MEDICAL HISTORY : None. SURGICAL HISTORY : Hardware placement left distal femur ENCOUNTER: Subsequent ACUITY: 1 week PAIN SCORE: 8/10 LOCATION: Left Knee FINDINGS: There is sideplate and screw fixation of the distal left femur across a comminuted fracture. Skin sta ples present. No palpitations identified. CONCLUSION: 1. Sideplate and screw fixation of comminuted distal left femur fracture. Nikita Mccray MD on October 20, 2015 at 9:49 Board Certified Radiologist. This report was verified electronically.
[2015-10-20 12:00] VITALS: BP 133/63; PULSE 106; RESP 24; TEMP 98; O2SAT 96
[2015-10-20 16:00] VITALS: BP 136/64; PULSE 82; RESP 22; TEMP 98.2; O2SAT 94
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
[2015-10-20] MEDS: MULTIVITAMINS/IRON/MINERALS CHEWABLE TAB CHEW SCH (16:45)
[2015-10-20 20:00] VITALS: BP 172/74; PULSE 83; RESP 20; TEMP 96.8; O2SAT 96
[2015-10-21] VITALS (7 sets, daily range): BP systolic 146–157; BP diastolic 69–86; PULSE 86–101; RESP 18–20; TEMP 96–98.2; O2SAT 92–96
[2015-10-21] MEDS: HYDROmorphone HCL PF 2 MG/ML VIAL IV PRN ×6 (00:25→21:48)
[2015-10-21] MEDS: CHLORHEXIDINE GLUCONATE 2 % 1 PACK (2 CLOTHS) TOP SCH (04:00)
[2015-10-21] MEDS: ENOXAPARIN SODIUM 30 MG/0.3 ML SYRINGE SQ SCH ×2 (04:11→16:53)
[2015-10-21 04:59] LABS: AUTOMATED NEUTROPHIL # 5.4 TH/MM3 (1.8-7.7); BASOPHIL % 0.6 % (0.0-2.0); EOSINOPHIL # 0.4 TH/MM3 (0-0.4); EOSINOPHIL % 4.8 % (0.0-4.0); HEMATOCRIT 27.9 % (39.0-51.0); HEMO FLAGS DIFF FINAL; LYMPH % 17.3 % (9.0-44.0); LYMPHOCYTE # 1.3 TH/MM3 (1.0-4.8); MEAN CELL VOLUME 77.8 FL (80.0-100.0); MEAN CORPUSCULAR HEMOGLOBIN 25.2 PG (27.0-34.0); MEAN CORPUSCULAR HGB CONC 32.3 % (32.0-36.0); NEUT % 71.3 % (16.0-70.0); PLATELET COUNT 279 TH/MM3 (150-450); RED BLOOD COUNT 3.59 MIL/MM3 (4.50-5.90); RED CELL DISTRIBUTION WIDTH 20.1 % (11.6-17.2); WHITE BLOOD COUNT 7.5 TH/MM3 (4.0-11.0)
[2015-10-21 05:22] LABS: BICARBONATE 31.5 MEQ/L (21.0-32.0)
[2015-10-21] MEDS: ACETAMINOPHEN/HYDROcodone 325 MG/10 MG TAB PO PRN ×4 (06:30→22:51)
[2015-10-21] MEDS: CHLORHEXIDINE 0.12% (ORAL KIT) 15 ML CUP MT SCH ×2 (08:00→20:00)
[2015-10-21] MEDS: MUPIROCIN 2% OINT 1 APPLIC/GM SYR EACH NARE SCH ×2 (09:00→20:10)
[2015-10-21] MEDS: POLYETHYLENE GLYCOL 17 GM PKG PO SCH (09:29)
[2015-10-21] MEDS: DOCUSATE SODIUM 50 MG/SENNA 8.6 MG TAB PO SCH ×2 (09:29→20:12)
[2015-10-21] MEDS: PANTOPRAZOLE SOD 40 MG DELAYED RELEASE TAB PO SCH (09:29)
[2015-10-21] MEDS: ARTIFICIAL TEARS OPTH SOLN 15 ML BTL EACH EYE SCH ×3 (09:30→18:00)
[2015-10-21] MEDS: MULTIVITAMINS/IRON/MINERALS CHEWABLE TAB CHEW SCH (09:30)
[2015-10-21] MEDS: SODIUM CHLORIDE 0.9% FLUSH 5 ML FLUSH IVF SCH ×2 (09:32→20:12)
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
[2015-10-22] VITALS: BP 146/73; PULSE 87; RESP 18; TEMP 96; O2SAT 92
[2015-10-22] MEDS: HYDROmorphone HCL PF 2 MG/ML VIAL IV PRN ×6 (01:46→22:55)
[2015-10-22] MEDS: CHLORHEXIDINE GLUCONATE 2 % 1 PACK (2 CLOTHS) TOP SCH (04:00)
[2015-10-22] MEDS: ACETAMINOPHEN/HYDROcodone 325 MG/10 MG TAB PO PRN ×3 (04:27→17:43)
[2015-10-22] MEDS: ENOXAPARIN SODIUM 60 MG/0.6 ML SYRINGE SQ SCH ×2 (04:29→16:00)
[2015-10-22] MEDS: CHLORHEXIDINE 0.12% (ORAL KIT) 15 ML CUP MT SCH ×2 (08:00→20:00)
[2015-10-22 08:16] VITALS: BP 139/65; PULSE 87; RESP 20; TEMP 96.9; O2SAT 95
[2015-10-22] MEDS: ARTIFICIAL TEARS OPTH SOLN 15 ML BTL EACH EYE SCH ×3 (09:00→16:14)
[2015-10-22] MEDS: MUPIROCIN 2% OINT 1 APPLIC/GM SYR EACH NARE SCH (09:00)
[2015-10-22] MEDS: MULTIVITAMINS/IRON/MINERALS CHEWABLE TAB CHEW SCH (09:04)
[2015-10-22] MEDS: POLYETHYLENE GLYCOL 17 GM PKG PO SCH (09:04)
[2015-10-22] MEDS: SODIUM CHLORIDE 0.9% FLUSH 5 ML FLUSH IVF SCH ×2 (09:04→20:34)
[2015-10-22] MEDS: DOCUSATE SODIUM 50 MG/SENNA 8.6 MG TAB PO SCH ×2 (09:05→20:34)
[2015-10-22] MEDS: PANTOPRAZOLE SOD 40 MG DELAYED RELEASE TAB PO SCH (09:06)
[2015-10-22 11:26] VITALS: BP 137/69; PULSE 95; RESP 19; TEMP 97.5; O2SAT 95
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
[2015-10-22 18:06] VITALS: BP 176/86; PULSE 98; RESP 19; TEMP 98.4; O2SAT 95
[2015-10-22 20:00] VITALS: BP 144/70; PULSE 91; RESP 20; TEMP 97.8; O2SAT 94
[2015-10-23] VITALS: BP 135/80; PULSE 94; RESP 20; TEMP 96.3; O2SAT 96
[2015-10-23] MEDS: ACETAMINOPHEN/HYDROcodone 325 MG/10 MG TAB PO PRN ×4 (02:26→23:23)
[2015-10-23] MEDS: CHLORHEXIDINE GLUCONATE 2 % 1 PACK (2 CLOTHS) TOP SCH (04:00)
[2015-10-23] MEDS: HYDROmorphone HCL PF 2 MG/ML VIAL IV PRN ×5 (04:40→22:08)
[2015-10-23] MEDS: ENOXAPARIN SODIUM 60 MG/0.6 ML SYRINGE SQ SCH ×2 (04:40→16:49)
[2015-10-23] MEDS: CHLORHEXIDINE 0.12% (ORAL KIT) 15 ML CUP MT SCH ×2 (07:06→20:00)
[2015-10-23 07:52] VITALS: BP 173/82; PULSE 80; RESP 19; TEMP 97.8; O2SAT 95
[2015-10-23] MEDS: ARTIFICIAL TEARS OPTH SOLN 15 ML BTL EACH EYE SCH ×3 (08:02→17:53)
[2015-10-23] MEDS: SODIUM CHLORIDE 0.9% FLUSH 5 ML FLUSH IVF SCH ×2 (08:02→20:51)
[2015-10-23] MEDS: MULTIVITAMINS/IRON/MINERALS CHEWABLE TAB CHEW SCH (08:02)
[2015-10-23] MEDS: DOCUSATE SODIUM 50 MG/SENNA 8.6 MG TAB PO SCH ×2 (08:02→20:51)
[2015-10-23] MEDS: PANTOPRAZOLE SOD 40 MG DELAYED RELEASE TAB PO SCH (08:02)
[2015-10-23] MEDS: POLYETHYLENE GLYCOL 17 GM PKG PO SCH (08:02)
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
[2015-10-23 12:19] VITALS: BP 168/81; PULSE 89; RESP 17; TEMP 98.4; O2SAT 95
[2015-10-23 16:02] VITALS: BP 144/74; PULSE 85; RESP 19; TEMP 96.9; O2SAT 95
[2015-10-23 20:00] VITALS: BP 157/89; PULSE 75; RESP 20; TEMP 97.1; O2SAT 94
[2015-10-24] VITALS: BP 140/87; PULSE 105; RESP 20; TEMP 96.5; O2SAT 97
[2015-10-24] MEDS: CHLORHEXIDINE GLUCONATE 2 % 1 PACK (2 CLOTHS) TOP SCH (04:00)
[2015-10-24] MEDS: ENOXAPARIN SODIUM 60 MG/0.6 ML SYRINGE SQ SCH ×2 (05:01→16:19)
[2015-10-24] MEDS: HYDROmorphone HCL PF 2 MG/ML VIAL IV PRN ×5 (05:01→22:25)
[2015-10-24 08:00] VITALS: BP 138/75; PULSE 86; RESP 18; TEMP 96.7; O2SAT 96
[2015-10-24] MEDS: CHLORHEXIDINE 0.12% (ORAL KIT) 15 ML CUP MT SCH ×2 (08:00→20:00)
[2015-10-24] MEDS: POLYETHYLENE GLYCOL 17 GM PKG PO SCH (09:10)
[2015-10-24] MEDS: MULTIVITAMINS/IRON/MINERALS CHEWABLE TAB CHEW SCH (09:11)
[2015-10-24] MEDS: DOCUSATE SODIUM 50 MG/SENNA 8.6 MG TAB PO SCH ×2 (09:11→21:30)
[2015-10-24] MEDS: SODIUM CHLORIDE 0.9% FLUSH 5 ML FLUSH IVF SCH ×2 (09:11→21:00)
[2015-10-24] MEDS: PANTOPRAZOLE SOD 40 MG DELAYED RELEASE TAB PO SCH (09:11)
[2015-10-24] MEDS: ARTIFICIAL TEARS OPTH SOLN 15 ML BTL EACH EYE SCH ×3 (09:12→16:20)
[2015-10-24 10:48] LABS: CRITICAL VALUE YES
[2015-10-24 12:00] VITALS: BP 129/56; PULSE 81; RESP 20; TEMP 96; O2SAT 95
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
[2015-10-24 16:00] VITALS: BP 143/71; PULSE 80; RESP 14; TEMP 96.4; O2SAT 93
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
[2015-10-24] MEDS: ACETAMINOPHEN/HYDROcodone 325 MG/10 MG TAB PO PRN (16:20)
[2015-10-24 20:00] VITALS: BP 143/65; PULSE 113; RESP 18; TEMP 97.4; O2SAT 96
[2015-10-25] VITALS: BP 134/80; PULSE 119; RESP 18; TEMP 98.6; O2SAT 96
[2015-10-25] MEDS: ACETAMINOPHEN/HYDROcodone 325 MG/10 MG TAB PO PRN ×3 (01:33→18:54)
[2015-10-25] MEDS: HYDROmorphone HCL PF 2 MG/ML VIAL IV PRN ×6 (03:13→23:51)
[2015-10-25] MEDS: SODIUM CHLORIDE 0.9% FLUSH 5 ML FLUSH IVF PRN ×2 (03:14→06:33)
[2015-10-25] MEDS: ENOXAPARIN SODIUM 60 MG/0.6 ML SYRINGE SQ SCH ×2 (03:14→15:41)
[2015-10-25] MEDS: CHLORHEXIDINE GLUCONATE 2 % 1 PACK (2 CLOTHS) TOP SCH (03:17)
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
[2015-10-25 08:00] VITALS: BP 129/63; PULSE 81; RESP 14; TEMP 96.7; O2SAT 93
[2015-10-25] MEDS: CHLORHEXIDINE 0.12% (ORAL KIT) 15 ML CUP MT SCH ×2 (08:00→20:27)
[2015-10-25] MEDS: PANTOPRAZOLE SOD 40 MG DELAYED RELEASE TAB PO SCH (09:59)
[2015-10-25] MEDS: MULTIVITAMINS/IRON/MINERALS CHEWABLE TAB CHEW SCH (09:59)
[2015-10-25] MEDS: DOCUSATE SODIUM 50 MG/SENNA 8.6 MG TAB PO SCH ×2 (09:59→20:25)
[2015-10-25] MEDS: SODIUM CHLORIDE 0.9% FLUSH 5 ML FLUSH IVF SCH ×2 (10:00→20:25)
[2015-10-25] MEDS: POLYETHYLENE GLYCOL 17 GM PKG PO SCH (10:00)
[2015-10-25] MEDS: ARTIFICIAL TEARS OPTH SOLN 15 ML BTL EACH EYE SCH ×3 (10:00→20:26)
[2015-10-25 12:00] VITALS: BP 160/74; PULSE 99; RESP 14; TEMP 96.9; O2SAT 93
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
[2015-10-25 16:00] VITALS: BP 116/63; PULSE 83; RESP 16; TEMP 96.2; O2SAT 93
[2015-10-25 20:00] VITALS: BP 137/63; PULSE 108; RESP 20; TEMP 97.3; O2SAT 98
[2015-10-26] VITALS: BP 135/74; PULSE 104; RESP 18; TEMP 97.7; O2SAT 93
[2015-10-26] MEDS: ACETAMINOPHEN/HYDROcodone 325 MG/10 MG TAB PO PRN ×2 (03:00→23:45)
[2015-10-26] MEDS: ENOXAPARIN SODIUM 60 MG/0.6 ML SYRINGE SQ SCH ×2 (03:09→16:35)
[2015-10-26] MEDS: CHLORHEXIDINE GLUCONATE 2 % 1 PACK (2 CLOTHS) TOP SCH (03:09)
[2015-10-26] MEDS: HYDROmorphone HCL PF 2 MG/ML VIAL IV PRN ×5 (04:13→20:49)
[2015-10-26 08:00] VITALS: BP 131/73; PULSE 97; RESP 18; TEMP 98.1; O2SAT 95
[2015-10-26] MEDS: CHLORHEXIDINE 0.12% (ORAL KIT) 15 ML CUP MT SCH ×2 (08:00→20:00)
[2015-10-26] MEDS: MULTIVITAMINS/IRON/MINERALS CHEWABLE TAB CHEW SCH (08:01)
[2015-10-26] MEDS: POLYETHYLENE GLYCOL 17 GM PKG PO SCH (08:02)
[2015-10-26] MEDS: PANTOPRAZOLE SOD 40 MG DELAYED RELEASE TAB PO SCH (08:02)
[2015-10-26] MEDS: DOCUSATE SODIUM 50 MG/SENNA 8.6 MG TAB PO SCH ×2 (08:02→20:48)
[2015-10-26] MEDS: ARTIFICIAL TEARS OPTH SOLN 15 ML BTL EACH EYE SCH ×3 (08:03→16:35)
[2015-10-26] MEDS: SODIUM CHLORIDE 0.9% FLUSH 5 ML FLUSH IVF SCH ×2 (08:03→20:48)
[2015-10-26 12:00] VITALS: BP 141/78; PULSE 112; RESP 17; TEMP 97.2; O2SAT 95
[2015-10-26 16:00] VITALS: BP 145/79; PULSE 84; RESP 18; TEMP 99.7; O2SAT 95
[2015-10-26 20:00] VITALS: BP 137/68; PULSE 109; RESP 18; TEMP 98; O2SAT 96
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
[2015-10-27] VITALS: BP 140/78; PULSE 93; RESP 20; TEMP 97.1; O2SAT 94
[2015-10-27] MEDS: HYDROmorphone HCL PF 2 MG/ML VIAL IV PRN ×5 (01:00→20:16)
[2015-10-27] MEDS: SODIUM CHLORIDE 0.9% FLUSH 5 ML FLUSH IVF PRN ×2 (01:01→05:18)
[2015-10-27] MEDS: CHLORHEXIDINE GLUCONATE 2 % 1 PACK (2 CLOTHS) TOP SCH (04:00)
[2015-10-27] MEDS: ENOXAPARIN SODIUM 60 MG/0.6 ML SYRINGE SQ SCH ×2 (04:08→17:24)
[2015-10-27 08:00] VITALS: BP 162/89; PULSE 99; RESP 18; TEMP 98.5; O2SAT 94
[2015-10-27] MEDS: CHLORHEXIDINE 0.12% (ORAL KIT) 15 ML CUP MT SCH ×2 (08:00→20:00)
[2015-10-27] MEDS: ARTIFICIAL TEARS OPTH SOLN 15 ML BTL EACH EYE SCH ×3 (08:57→18:00)
[2015-10-27] MEDS: MULTIVITAMINS/IRON/MINERALS CHEWABLE TAB CHEW SCH (08:57)
[2015-10-27] MEDS: PANTOPRAZOLE SOD 40 MG DELAYED RELEASE TAB PO SCH (08:57)
[2015-10-27] MEDS: DOCUSATE SODIUM 50 MG/SENNA 8.6 MG TAB PO SCH ×2 (08:58→20:15)
[2015-10-27] MEDS: POLYETHYLENE GLYCOL 17 GM PKG PO SCH (08:58)
[2015-10-27] MEDS: SODIUM CHLORIDE 0.9% FLUSH 5 ML FLUSH IVF SCH ×2 (09:00→20:15)
[2015-10-27 12:00] VITALS: BP 134/65; PULSE 97; RESP 17; TEMP 96.5; O2SAT 92
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
[2015-10-27 16:00] VITALS: BP 134/63; PULSE 98; RESP 18; TEMP 97.8; O2SAT 95
[2015-10-27] MEDS: ACETAMINOPHEN/HYDROcodone 325 MG/10 MG TAB PO PRN (17:24)
[2015-10-27 20:00] VITALS: BP 165/95; PULSE 105; RESP 20; TEMP 97.6; O2SAT 95
[2015-10-28] VITALS (7 sets, daily range): BP systolic 132–154; BP diastolic 73–78; PULSE 84–108; RESP 18–19; TEMP 97.6–98.8; O2SAT 95–97
[2015-10-28] MEDS: SODIUM CHLORIDE 0.9% FLUSH 5 ML FLUSH IVF PRN ×2 (00:10→04:13)
[2015-10-28] MEDS: HYDROmorphone HCL PF 2 MG/ML VIAL IV PRN ×6 (00:11→20:51)
[2015-10-28] MEDS: CHLORHEXIDINE GLUCONATE 2 % 1 PACK (2 CLOTHS) TOP SCH (04:00)
[2015-10-28] MEDS: ENOXAPARIN SODIUM 60 MG/0.6 ML SYRINGE SQ SCH ×2 (04:11→16:55)
[2015-10-28] MEDS: CHLORHEXIDINE 0.12% (ORAL KIT) 15 ML CUP MT SCH ×2 (08:00→20:00)
[2015-10-28] MEDS: MULTIVITAMINS/IRON/MINERALS CHEWABLE TAB CHEW SCH (08:03)
[2015-10-28] MEDS: PANTOPRAZOLE SOD 40 MG DELAYED RELEASE TAB PO SCH (08:03)
[2015-10-28] MEDS: ARTIFICIAL TEARS OPTH SOLN 15 ML BTL EACH EYE SCH ×3 (08:03→16:57)
[2015-10-28] MEDS: DOCUSATE SODIUM 50 MG/SENNA 8.6 MG TAB PO SCH ×2 (08:03→20:51)
[2015-10-28] MEDS: SODIUM CHLORIDE 0.9% FLUSH 5 ML FLUSH IVF SCH ×2 (08:05→20:52)
[2015-10-28] MEDS: POLYETHYLENE GLYCOL 17 GM PKG PO SCH (08:05)
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
[2015-10-29] VITALS: BP 148/87; PULSE 101; RESP 20; TEMP 97.5; O2SAT 95
[2015-10-29] MEDS: HYDROmorphone HCL PF 2 MG/ML VIAL IV PRN ×6 (00:53→22:35)
[2015-10-29] MEDS: CHLORHEXIDINE GLUCONATE 2 % 1 PACK (2 CLOTHS) TOP SCH ×2 (04:00→20:21)
[2015-10-29] MEDS: ENOXAPARIN SODIUM 60 MG/0.6 ML SYRINGE SQ SCH ×2 (04:20→16:56)
[2015-10-29 08:00] VITALS: BP 157/81; PULSE 93; RESP 17; TEMP 99.3; O2SAT 94
[2015-10-29] MEDS: CHLORHEXIDINE 0.12% (ORAL KIT) 15 ML CUP MT SCH ×2 (08:00→20:00)
[2015-10-29] MEDS: POLYETHYLENE GLYCOL 17 GM PKG PO SCH (09:00)
[2015-10-29] MEDS: MULTIVITAMINS/IRON/MINERALS CHEWABLE TAB CHEW SCH (10:07)
[2015-10-29] MEDS: ARTIFICIAL TEARS OPTH SOLN 15 ML BTL EACH EYE SCH ×3 (10:07→16:56)
[2015-10-29] MEDS: DOCUSATE SODIUM 50 MG/SENNA 8.6 MG TAB PO SCH ×2 (10:08→20:20)
[2015-10-29] MEDS: PANTOPRAZOLE SOD 40 MG DELAYED RELEASE TAB PO SCH (10:08)
[2015-10-29] MEDS: SODIUM CHLORIDE 0.9% FLUSH 5 ML FLUSH IVF SCH ×2 (10:14→20:20)
[2015-10-29 10:41] LABS: AUTOMATED NEUTROPHIL # 3.8 TH/MM3 (1.8-7.7); BASOPHIL % 0.5 % (0.0-2.0); EOSINOPHIL # 0.5 TH/MM3 (0-0.4); EOSINOPHIL % 9.5 % (0.0-4.0); HEMATOCRIT 28.5 % (39.0-51.0); LYMPH % 16.1 % (9.0-44.0); LYMPHOCYTE # 0.9 TH/MM3 (1.0-4.8); MEAN CELL VOLUME 75.6 FL (80.0-100.0); MEAN CORPUSCULAR HEMOGLOBIN 24.2 PG (27.0-34.0); MEAN CORPUSCULAR HGB CONC 31.9 % (32.0-36.0); MONO % 6.8 % (0.0-8.0); NEUT % 67.1 % (16.0-70.0); PLATELET COUNT 238 TH/MM3 (150-450); RED BLOOD COUNT 3.76 MIL/MM3 (4.50-5.90); WHITE BLOOD COUNT 5.6 TH/MM3 (4.0-11.0)
[2015-10-29 10:41] LABS: BACTERIA, URINE OCC /hpf; BLOOD, URINE SMALL (NEG); COMMENT (UR) CULTURE INDICATED; CULTURE IF INDICATED CULTURE INDICATED; GLUCOSE,URINE NEG (NEG); KETONE, URINE NEG (NEG); NITRITE,URINE NEG (NEG); URINE COLOR YELLOW (YELLW/STRAW)
[2015-10-29 10:45] LABS: HEMO FLAGS AUTO DIFF
[2015-10-29] MEDS: NYSTATIN 100,000 U/GM PWD 15 GM BTL TOPICAL SCH ×2 (11:00→20:21)
[2015-10-29 11:31] LABS: BANDS 2 % (0-6); EOSINOPHILS 11 % (0-4); MYELOCYTES 1 % (0-0); PLATELET ESTIMATE SMEAR NORMAL (NORMAL); PLATELET MORPHOLOGY NORMAL (NORMAL); POLYS (SEG NEUTROPHILS) 69 % (16-70); SCAN/DIFF FINAL DIFF MANUAL; WBC DIFF SAMPLE 100
[2015-10-29 12:00] VITALS: BP 145/69; PULSE 94; RESP 17; TEMP 96.9; O2SAT 92
[2015-10-29] MEDS: ACETAMINOPHEN/HYDROcodone 325 MG/10 MG TAB PO PRN ×2 (12:27→20:21)
[2015-10-29] MEDS: SODIUM CHLORIDE 0.9% FLUSH 5 ML FLUSH IVF PRN (14:34)
[2015-10-29 16:00] VITALS: BP 136/97; PULSE 93; RESP 16; TEMP 97.4; O2SAT 93
[2015-10-29 19:49] VITALS: BP 149/72; PULSE 88; RESP 22; TEMP 97; O2SAT 97
--- NOTE | 2015-10-29 21:14 | HHI.PR ---
Subjective Subjective Notes no new events overnight Objective Vitals/I&O Vital Signs Date Time Temp Pulse Resp B/P Pulse Ox O2 Delivery O2 Flow Rate FiO2 10/29/15 16:00 97.4 93 16 136/97 93 10/28/15 18:28 21 10/28/15 08:13 Nasal Cannula 2.00 Labs Laboratory Tests Test 10/29/15 10/29/15 10:15 10:24 White Blood Count 5.6 Red Blood Count 3.76 Hemoglobin 9.1 Hematocrit 28.5 Mean Corpuscular Volume 75.6 Mean Corpuscular Hemoglobin 24.2 Mean Corpuscular Hemoglobin 31.9 Concent Red Cell Distribution Width 19.0 Platelet Count 238 Mean Platelet Volume 8.8 Neutrophils (%) (Auto) 67.1 Lymphocytes (%) (Auto) 16.1 Monocytes (%) (Auto) 6.8 Eosinophils (%) (Auto) 9.5 Basophils (%) (Auto) 0.5 Neutrophils # (Auto) 3.8 Lymphocytes # (Auto) 0.9 Monocytes # (Auto) 0.4 Eosinophils # (Auto) 0.5 Basophils # (Auto) 0.0 CBC Comment AUTO DIFF Differential Total Cells 100 Counted Neutrophils % (Manual) 69 Band Neutrophils % 2 Lymphocytes % 11 Monocytes % 6 Eosinophils % 11 Neutrophils # (Manual) 4.0 Myelocytes 1 Differential Comment FINAL DIFF MANUAL Platelet Estimate NORMAL Platelet Morphology Comment NORMAL Urine Color YELLOW Urine Turbidity HAZY Urine pH 7.0 Urine Specific [place] 1.016 Urine Protein 30 Urine Glucose (UA) NEG Urine Ketones NEG Urine Occult Blood SMALL Urine Nitrite NEG Urine Bilirubin NEG Urine Urobilinogen LESS THAN 2.0 Urine Leukocyte Esterase LARGE Urine RBC 2 Urine WBC Urine WBC Clumps MANY Urine Bacteria OCC Microscopic Urinalysis Comment CULTURE INDICATED Date/Time Procedure Status Source Growth 10/29/15 10:24 Urine Culture Received Urine Clean Catch Pending Cardiovascular: Regular Abdomen: Non-tender Extremities: Perfused Narrative Exam obese abdomen A/P Assessment and Plan Super Obese tspine fx femur fx neuro for tspine injury cont local wound care Jassi Shea MD Oct 29, 2015 21:14
[2015-10-29] MEDS: diphenhydrAMINE HCL 25 MG CAP PO PRN (21:21)
[2015-10-29 23:49] VITALS: BP 142/80; PULSE 90; RESP 20; TEMP 97.7; O2SAT 94
[2015-10-30] MEDS: ENOXAPARIN SODIUM 60 MG/0.6 ML SYRINGE SQ SCH ×2 (03:57→16:56)
[2015-10-30] MEDS: HYDROmorphone HCL PF 2 MG/ML VIAL IV PRN ×5 (03:57→21:14)
[2015-10-30] MEDS: CHLORHEXIDINE 0.12% (ORAL KIT) 15 ML CUP MT SCH ×2 (07:21→19:36)
[2015-10-30 08:00] VITALS: BP 134/78; PULSE 111; RESP 17; TEMP 98.2; O2SAT 92
[2015-10-30] MEDS: ARTIFICIAL TEARS OPTH SOLN 15 ML BTL EACH EYE SCH ×3 (08:44→17:00)
[2015-10-30] MEDS: NYSTATIN 100,000 U/GM PWD 15 GM BTL TOPICAL SCH ×2 (08:44→20:24)
[2015-10-30] MEDS: PANTOPRAZOLE SOD 40 MG DELAYED RELEASE TAB PO SCH (08:45)
[2015-10-30] MEDS: POLYETHYLENE GLYCOL 17 GM PKG PO SCH (08:45)
[2015-10-30] MEDS: MULTIVITAMINS/IRON/MINERALS CHEWABLE TAB CHEW SCH (08:45)
[2015-10-30] MEDS: DOCUSATE SODIUM 50 MG/SENNA 8.6 MG TAB PO SCH ×2 (08:45→20:21)
[2015-10-30] MEDS: SODIUM CHLORIDE 0.9% FLUSH 5 ML FLUSH IVF SCH ×2 (08:46→20:25)
[2015-10-30] MEDS: LEVOFLOXACIN 750 MG/DEXTROSE 150 ML IV SCH (10:25)
[2015-10-30 12:00] VITALS: BP 132/72; PULSE 109; RESP 18; TEMP 98.3; O2SAT 92
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
[2015-10-30] MEDS: ACETAMINOPHEN/HYDROcodone 325 MG/10 MG TAB PO PRN (13:54)
[2015-10-30 16:00] VITALS: BP 167/74; PULSE 72; RESP 17; TEMP 98.3; O2SAT 95
[2015-10-30 19:50] VITALS: BP 135/82; PULSE 109; RESP 22; TEMP 96; O2SAT 97
[2015-10-30 23:49] VITALS: BP 163/92; PULSE 90; RESP 22; TEMP 96.4; O2SAT 97
[2015-10-31] MEDS: HYDROmorphone HCL PF 2 MG/ML VIAL IV PRN ×6 (01:06→21:55)
[2015-10-31] MEDS: CHLORHEXIDINE GLUCONATE 2 % 1 PACK (2 CLOTHS) TOP SCH (04:03)
[2015-10-31] MEDS: ENOXAPARIN SODIUM 60 MG/0.6 ML SYRINGE SQ SCH ×2 (04:54→14:23)
[2015-10-31 07:57] VITALS: BP 133/77; PULSE 92; RESP 17; TEMP 97; O2SAT 94
[2015-10-31] MEDS: CHLORHEXIDINE 0.12% (ORAL KIT) 15 ML CUP MT SCH ×2 (08:00→20:00)
[2015-10-31] MEDS: LEVOFLOXACIN 750 MG/DEXTROSE 150 ML IV SCH (08:27)
[2015-10-31] MEDS: MULTIVITAMINS/IRON/MINERALS CHEWABLE TAB CHEW SCH (08:27)
[2015-10-31] MEDS: PANTOPRAZOLE SOD 40 MG DELAYED RELEASE TAB PO SCH (08:27)
[2015-10-31] MEDS: DOCUSATE SODIUM 50 MG/SENNA 8.6 MG TAB PO SCH ×2 (08:27→20:59)
[2015-10-31] MEDS: ARTIFICIAL TEARS OPTH SOLN 15 ML BTL EACH EYE SCH ×3 (08:29→16:48)
[2015-10-31] MEDS: NYSTATIN 100,000 U/GM PWD 15 GM BTL TOPICAL SCH ×2 (08:29→21:00)
[2015-10-31] MEDS: SODIUM CHLORIDE 0.9% FLUSH 5 ML FLUSH IVF SCH ×2 (08:29→21:00)
[2015-10-31] MEDS: POLYETHYLENE GLYCOL 17 GM PKG PO SCH (08:30)
[2015-10-31 12:00] VITALS: BP 154/82; PULSE 88; RESP 18; TEMP 97.4; O2SAT 94
[2015-10-31 16:00] VITALS: BP 140/86; PULSE 95; RESP 17; TEMP 97.4; O2SAT 96
[2015-10-31] MEDS: ACETAMINOPHEN/HYDROcodone 325 MG/10 MG TAB PO PRN ×2 (17:06→23:30)
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
[2015-10-31 20:00] VITALS: BP 118/76; PULSE 108; RESP 20; TEMP 96.9; O2SAT 95
[2015-11-01] VITALS: BP 153/85; PULSE 104; RESP 20; TEMP 96.4; O2SAT 98
[2015-11-01] MEDS: HYDROmorphone HCL PF 2 MG/ML VIAL IV PRN ×4 (02:01→15:38)
[2015-11-01] MEDS: CHLORHEXIDINE GLUCONATE 2 % 1 PACK (2 CLOTHS) TOP SCH (03:58)
[2015-11-01] MEDS: ENOXAPARIN SODIUM 60 MG/0.6 ML SYRINGE SQ SCH ×2 (04:06→15:39)
[2015-11-01] MEDS: ACETAMINOPHEN/HYDROcodone 325 MG/10 MG TAB PO PRN ×2 (05:47→10:36)
[2015-11-01] MEDS: SODIUM CHLORIDE 0.9% FLUSH 5 ML FLUSH IVF SCH ×2 (07:55→20:09)
[2015-11-01] MEDS: DOCUSATE SODIUM 50 MG/SENNA 8.6 MG TAB PO SCH ×2 (07:55→20:09)
[2015-11-01] MEDS: PANTOPRAZOLE SOD 40 MG DELAYED RELEASE TAB PO SCH (07:55)
[2015-11-01] MEDS: MULTIVITAMINS/IRON/MINERALS CHEWABLE TAB CHEW SCH (07:55)
[2015-11-01] MEDS: LEVOFLOXACIN 750 MG/DEXTROSE 150 ML IV SCH (07:55)
[2015-11-01] MEDS: POLYETHYLENE GLYCOL 17 GM PKG PO SCH ×2 (07:55→07:59)
[2015-11-01] MEDS: ARTIFICIAL TEARS OPTH SOLN 15 ML BTL EACH EYE SCH ×3 (07:56→15:39)
[2015-11-01] MEDS: CHLORHEXIDINE 0.12% (ORAL KIT) 15 ML CUP MT SCH ×2 (07:56→20:00)
[2015-11-01] MEDS: NYSTATIN 100,000 U/GM PWD 15 GM BTL TOPICAL SCH ×2 (07:57→20:10)
[2015-11-01 08:00] VITALS: BP 131/79; PULSE 64; RESP 20; TEMP 96.9; O2SAT 93
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
[2015-11-01 12:00] VITALS: BP 130/76; PULSE 99; RESP 21; TEMP 96.4; O2SAT 98
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
[2015-11-01 16:00] VITALS: BP 128/78; PULSE 86; RESP 20; TEMP 97; O2SAT 97
[2015-11-01 20:00] VITALS: BP 130/70; PULSE 78; RESP 20; TEMP 96.3; O2SAT 95
[2015-11-02] VITALS: BP 153/74; PULSE 92; RESP 19; TEMP 96.6; O2SAT 96
[2015-11-02] MEDS: HYDROmorphone HCL PF 2 MG/ML VIAL IV PRN ×6 (00:44→20:59)
[2015-11-02] MEDS: SODIUM CHLORIDE 0.9% FLUSH 5 ML FLUSH IVF PRN ×2 (00:45→12:32)
[2015-11-02] MEDS: CHLORHEXIDINE GLUCONATE 2 % 1 PACK (2 CLOTHS) TOP SCH (04:00)
[2015-11-02] MEDS: ENOXAPARIN SODIUM 60 MG/0.6 ML SYRINGE SQ SCH ×2 (04:29→16:37)
[2015-11-02 08:00] VITALS: BP 150/97; PULSE 71; RESP 22; TEMP 97.2; O2SAT 96
[2015-11-02] MEDS: CHLORHEXIDINE 0.12% (ORAL KIT) 15 ML CUP MT SCH ×2 (08:00→20:00)
[2015-11-02] MEDS: SODIUM CHLORIDE 0.9% FLUSH 5 ML FLUSH IVF SCH ×2 (08:39→20:56)
[2015-11-02] MEDS: LEVOFLOXACIN 750 MG/DEXTROSE 150 ML IV SCH (08:41)
[2015-11-02] MEDS: POLYETHYLENE GLYCOL 17 GM PKG PO SCH ×2 (08:44→18:29)
[2015-11-02] MEDS: DOCUSATE SODIUM 50 MG/SENNA 8.6 MG TAB PO SCH ×2 (08:44→20:56)
[2015-11-02] MEDS: PANTOPRAZOLE SOD 40 MG DELAYED RELEASE TAB PO SCH (08:44)
[2015-11-02] MEDS: MULTIVITAMINS/IRON/MINERALS CHEWABLE TAB CHEW SCH (08:44)
[2015-11-02] MEDS: NYSTATIN 100,000 U/GM PWD 15 GM BTL TOPICAL SCH ×2 (08:46→20:57)
[2015-11-02] MEDS: ARTIFICIAL TEARS OPTH SOLN 15 ML BTL EACH EYE SCH ×3 (08:47→16:40)
[2015-11-02 12:00] VITALS: BP 148/92; PULSE 74; RESP 21; TEMP 97; O2SAT 96
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
[2015-11-02 16:00] VITALS: BP 141/69; PULSE 80; RESP 22; TEMP 96.4; O2SAT 94
[2015-11-02] MEDS: ACETAMINOPHEN/HYDROcodone 325 MG/10 MG TAB PO PRN (18:37)
[2015-11-02 19:49] VITALS: BP 134/97; PULSE 126; RESP 22; TEMP 96.5; O2SAT 95
[2015-11-02 23:49] VITALS: BP 170/76; PULSE 60; RESP 22; TEMP 96.4; O2SAT 96
[2015-11-03] MEDS: ACETAMINOPHEN/HYDROcodone 325 MG/10 MG TAB PO PRN ×4 (00:42→20:53)
[2015-11-03] MEDS: HYDROmorphone HCL PF 2 MG/ML VIAL IV PRN ×5 (02:21→21:42)
[2015-11-03 03:50] VITALS: BP 180/88; PULSE 58; RESP 22; TEMP 96; O2SAT 96
[2015-11-03] MEDS: CHLORHEXIDINE GLUCONATE 2 % 1 PACK (2 CLOTHS) TOP SCH (04:00)
[2015-11-03] MEDS: ENOXAPARIN SODIUM 60 MG/0.6 ML SYRINGE SQ SCH ×2 (04:32→15:12)
[2015-11-03] MEDS: diphenhydrAMINE HCL 25 MG CAP PO PRN (04:38)
[2015-11-03 07:12] LABS: AUTOMATED NEUTROPHIL # 6.1 TH/MM3 (1.8-7.7); BASOPHIL % 0.5 % (0.0-2.0); EOSINOPHIL # 0.5 TH/MM3 (0-0.4); EOSINOPHIL % 5.7 % (0.0-4.0); HEMATOCRIT 31.3 % (39.0-51.0); LYMPH % 19.2 % (9.0-44.0); LYMPHOCYTE # 1.7 TH/MM3 (1.0-4.8); MEAN CELL VOLUME 73.7 FL (80.0-100.0); MEAN CORPUSCULAR HEMOGLOBIN 24.2 PG (27.0-34.0); MEAN CORPUSCULAR HGB CONC 32.8 % (32.0-36.0); MONO % 6.6 % (0.0-8.0); PLATELET COUNT 272 TH/MM3 (150-450); RED BLOOD COUNT 4.25 MIL/MM3 (4.50-5.90); RED CELL DISTRIBUTION WIDTH 19.1 % (11.6-17.2); WHITE BLOOD COUNT 8.9 TH/MM3 (4.0-11.0)
[2015-11-03 07:14] LABS: HEMO FLAGS AUTO DIFF
[2015-11-03] MEDS: CHLORHEXIDINE 0.12% (ORAL KIT) 15 ML CUP MT SCH ×2 (07:37→20:00)
[2015-11-03 07:39] LABS: BICARBONATE 33.7 MEQ/L (21.0-32.0)
[2015-11-03 07:40] LABS: POTASSIUM 4.3 MEQ/L (3.5-5.1)
[2015-11-03 08:00] VITALS: BP 174/79; PULSE 60; RESP 16; TEMP 97.1; O2SAT 95
[2015-11-03 08:03] LABS: SCAN/DIFF AUTO DIFF CONFIRMED
[2015-11-03] MEDS: DOCUSATE SODIUM 50 MG/SENNA 8.6 MG TAB PO SCH ×2 (10:04→22:21)
[2015-11-03] MEDS: POLYETHYLENE GLYCOL 17 GM PKG PO SCH (10:04)
[2015-11-03] MEDS: MULTIVITAMINS/IRON/MINERALS CHEWABLE TAB CHEW SCH (10:04)
[2015-11-03] MEDS: PANTOPRAZOLE SOD 40 MG DELAYED RELEASE TAB PO SCH (10:04)
[2015-11-03] MEDS: SODIUM CHLORIDE 0.9% FLUSH 5 ML FLUSH IVF SCH ×2 (10:04→22:24)
[2015-11-03] MEDS: NYSTATIN 100,000 U/GM PWD 15 GM BTL TOPICAL SCH ×2 (10:05→21:00)
[2015-11-03] MEDS: LEVOFLOXACIN 750 MG/DEXTROSE 150 ML IV SCH (10:06)
[2015-11-03] MEDS: ARTIFICIAL TEARS OPTH SOLN 15 ML BTL EACH EYE SCH ×3 (10:06→17:16)
[2015-11-03 12:00] VITALS: BP_SYST 194; BP_SYST 207; BP_DIAS 91; PULSE 65; RESP 18; TEMP 96.3; O2SAT 94
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
[2015-11-03 16:00] VITALS: BP 188/88; PULSE 60; RESP 16; TEMP 96.7; O2SAT 96
[2015-11-03 19:54] VITALS: BP 181/87; PULSE 85; RESP 20; TEMP 96; O2SAT 95
[2015-11-03 23:54] VITALS: BP 137/76; PULSE 104; RESP 20; TEMP 96.7; O2SAT 98
[2015-11-04] MEDS: HYDROmorphone HCL PF 2 MG/ML VIAL IV PRN ×6 (01:32→22:46)
[2015-11-04] MEDS: CHLORHEXIDINE GLUCONATE 2 % 1 PACK (2 CLOTHS) TOP SCH (04:00)
[2015-11-04] MEDS: ENOXAPARIN SODIUM 60 MG/0.6 ML SYRINGE SQ SCH ×2 (04:29→15:10)
[2015-11-04] MEDS: ACETAMINOPHEN/HYDROcodone 325 MG/10 MG TAB PO PRN ×3 (04:30→20:32)
[2015-11-04 08:00] VITALS: BP 125/69; PULSE 100; RESP 22; TEMP 97.8; O2SAT 95
[2015-11-04] MEDS: CHLORHEXIDINE 0.12% (ORAL KIT) 15 ML CUP MT SCH ×2 (08:00→20:00)
[2015-11-04] MEDS: NYSTATIN 100,000 U/GM PWD 15 GM BTL TOPICAL SCH ×2 (09:00→20:35)
[2015-11-04] MEDS: DOCUSATE SODIUM 50 MG/SENNA 8.6 MG TAB PO SCH ×2 (10:17→20:31)
[2015-11-04] MEDS: PANTOPRAZOLE SOD 40 MG DELAYED RELEASE TAB PO SCH (10:17)
[2015-11-04] MEDS: MULTIVITAMINS/IRON/MINERALS CHEWABLE TAB CHEW SCH (10:17)
[2015-11-04] MEDS: POLYETHYLENE GLYCOL 17 GM PKG PO SCH (10:17)
[2015-11-04] MEDS: LEVOFLOXACIN 750 MG/DEXTROSE 150 ML IV SCH (10:17)
[2015-11-04] MEDS: SODIUM CHLORIDE 0.9% FLUSH 5 ML FLUSH IVF SCH ×2 (10:18→20:35)
[2015-11-04] MEDS: ARTIFICIAL TEARS OPTH SOLN 15 ML BTL EACH EYE SCH ×3 (10:20→20:36)
--- NOTE | 2015-11-04 10:32 | HHI.NSPN ---
History Chief Complaint: PATIENT WAS NOT EXAMINED- THIS IS AN CHART NOTE ONLY. Interval History 11/04/15: PATIENT WAS NOT EXAMINED. I went by his room to discuss surgery upcoming surgery scheduled for 11/07/15 at 1330. Exam Results Physical Examination No exam today. Medical Decision Making Impression and Plan I went in to see Mr. Ta today at 0955. He was resting in bed and easily awakened to voice. I identified I was working with Dr. Herbert and I inquired if he was ready to proceed with surgery on Monday 11/06 and asked if he had any questions. He explained he did not think he was having surgery on Saturday but only going to "try out the bed." I explained the goal is to proceed with surgery if we get him to the OR and the equipment does accommodate him. He appeared confused after hearing this information and stated he needed more time to think about it. I explained we would really like to know today so we can adjust the surgery schedule accordingly. He abruptly responded saying his answer was NO then. I then questioned him again so there was no confusion "Are you refusing to proceed with surgery Saturday?" He answered YES. I have moved him to Tuesday 11/07 Dr. Herbert's next available opening and will attempt to discuss it with him again Monday 11/06 and obtain consents. Zainab Mclain Nov 04, 2015 10:32
[2015-11-04 12:00] VITALS: BP 139/63; PULSE 102; RESP 20; TEMP 96; O2SAT 98
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
[2015-11-04 16:00] VITALS: BP 127/56; PULSE 85; RESP 20; TEMP 96.5; O2SAT 93
[2015-11-04 17:55] VITALS: O2SAT 93
[2015-11-04 20:00] VITALS: BP 155/87; PULSE 105; RESP 20; TEMP 98.2; O2SAT 97
[2015-11-05] VITALS: BP 135/67; PULSE 97; RESP 20; TEMP 97.3; O2SAT 95
[2015-11-05] MEDS: CHLORHEXIDINE GLUCONATE 2 % 1 PACK (2 CLOTHS) TOP SCH ×2 (04:00→21:40)
[2015-11-05] MEDS: HYDROmorphone HCL PF 2 MG/ML VIAL IV PRN ×4 (04:13→21:41)
[2015-11-05] MEDS: ENOXAPARIN SODIUM 60 MG/0.6 ML SYRINGE SQ SCH ×2 (04:15→16:21)
[2015-11-05 08:00] VITALS: BP 135/73; PULSE 107; RESP 22; TEMP 97.7; O2SAT 97
[2015-11-05] MEDS: ACETAMINOPHEN/HYDROcodone 325 MG/10 MG TAB PO PRN ×2 (08:58→16:21)
[2015-11-05] MEDS: POLYETHYLENE GLYCOL 17 GM PKG PO SCH (08:59)
[2015-11-05] MEDS: DOCUSATE SODIUM 50 MG/SENNA 8.6 MG TAB PO SCH ×2 (08:59→21:39)
[2015-11-05] MEDS: PANTOPRAZOLE SOD 40 MG DELAYED RELEASE TAB PO SCH (08:59)
[2015-11-05] MEDS: MULTIVITAMINS/IRON/MINERALS CHEWABLE TAB CHEW SCH (08:59)
[2015-11-05] MEDS: SODIUM CHLORIDE 0.9% FLUSH 5 ML FLUSH IVF SCH ×2 (09:00→21:39)
[2015-11-05] MEDS: LEVOFLOXACIN 750 MG/DEXTROSE 150 ML IV SCH (09:00)
[2015-11-05] MEDS: ARTIFICIAL TEARS OPTH SOLN 15 ML BTL EACH EYE SCH ×3 (09:00→16:22)
[2015-11-05] MEDS: NYSTATIN 100,000 U/GM PWD 15 GM BTL TOPICAL SCH ×2 (09:02→21:40)
[2015-11-05 12:00] VITALS: BP 139/60; PULSE 86; RESP 22; TEMP 96.8; O2SAT 94
[2015-11-05 16:00] VITALS: BP 137/73; PULSE 75; RESP 22; TEMP 97.2; O2SAT 95
[2015-11-05 17:30] VITALS: O2SAT 97
--- NOTE | 2015-11-05 19:58 | HHI.PR ---
Subjective Subjective Notes no new events overnight Objective Vitals/I&O Vital Signs Date Time Temp Pulse Resp B/P Pulse Ox O2 Delivery O2 Flow Rate FiO2 11/05/15 16:00 97.2 75 22 137/73 95 11/04/15 17:55 21 Radiology Last Impressions Knee X-Ray 10/20/15 0000 Signed Impressions: Service Date/Time: September 09:04 - CONCLUSION: 1. Sideplate and screw fixation of comminuted distal left femur fracture. Nikita Mccray MD Chest X-Ray 10/17/15 0000 Signed Impressions: Service Date/Time: Saturday, October 17, 2015 08:21 - CONCLUSION: Bilateral airspace opacities persist without significant change. Andrei Pérez MD IVC Filter Placement X-Ray 10/11/15 0000 Signed Impressions: Service Date/Time: Sunday, October 11, 2015 09:30 - CONCLUSION: Uncomplicated inferior vena cava filter placement as above. Andrei Alva MD Hand X-Ray 10/08/15 0000 Signed Impressions: Service Date/Time: Thursday, October 08, 2015 05:22 - CONCLUSION: Debris within the soft tissues of the proximal fourth digit. John Mcdonald MD Cardiovascular: Regular Lungs: Clear Extremities: Perfused Narrative Exam obese abdomen A/P Assessment and Plan Super Obese tspine fx femur fx neuro for tspine injury unstable pt unsure of surgery cont local wound care Jassi Shea MD Nov 05, 2015 19:58
[2015-11-05 20:00] VITALS: BP 142/70; PULSE 73; RESP 21; TEMP 97.2; O2SAT 96
[2015-11-05] MEDS: CHLORHEXIDINE 0.12% (ORAL KIT) 15 ML CUP MT SCH (20:00)
[2015-11-06] VITALS: BP 157/71; PULSE 52; RESP 19; TEMP 96.5; O2SAT 96
[2015-11-06] MEDS: ACETAMINOPHEN/HYDROcodone 325 MG/10 MG TAB PO PRN ×4 (00:22→22:46)
[2015-11-06] MEDS: HYDROmorphone HCL PF 2 MG/ML VIAL IV PRN ×4 (02:18→20:08)
[2015-11-06] MEDS: ENOXAPARIN SODIUM 60 MG/0.6 ML SYRINGE SQ SCH ×2 (02:21→14:54)
[2015-11-06] MEDS: POLYETHYLENE GLYCOL 17 GM PKG PO SCH (07:41)
[2015-11-06] MEDS: PANTOPRAZOLE SOD 40 MG DELAYED RELEASE TAB PO SCH (07:41)
[2015-11-06] MEDS: MULTIVITAMINS/IRON/MINERALS CHEWABLE TAB CHEW SCH (07:42)
[2015-11-06] MEDS: DOCUSATE SODIUM 50 MG/SENNA 8.6 MG TAB PO SCH ×2 (07:42→20:07)
[2015-11-06] MEDS: LEVOFLOXACIN 750 MG/DEXTROSE 150 ML IV SCH (07:42)
[2015-11-06] MEDS: SODIUM CHLORIDE 0.9% FLUSH 5 ML FLUSH IVF SCH ×2 (07:43→20:07)
[2015-11-06] MEDS: ARTIFICIAL TEARS OPTH SOLN 15 ML BTL EACH EYE SCH ×3 (07:43→17:19)
[2015-11-06] MEDS: CHLORHEXIDINE 0.12% (ORAL KIT) 15 ML CUP MT SCH ×2 (07:43→20:00)
[2015-11-06] MEDS: NYSTATIN 100,000 U/GM PWD 15 GM BTL TOPICAL SCH ×2 (07:44→20:07)
[2015-11-06 08:00] VITALS: BP 165/77; PULSE 55; RESP 22; TEMP 97.6; O2SAT 98
[2015-11-06 12:00] VITALS: BP 150/78; PULSE 60; RESP 20; TEMP 97.5; O2SAT 98
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
[2015-11-06] MEDS: ONDANSETRON HCL 4 MG/2 ML VIAL IV PRN (15:12)
[2015-11-06 16:00] VITALS: BP 138/65; PULSE 66; RESP 21; TEMP 97.6; O2SAT 96
[2015-11-06 20:00] VITALS: BP 120/61; PULSE 106; RESP 20; TEMP 97.4; O2SAT 98
[2015-11-07] VITALS: BP 135/65; PULSE 99; RESP 18; TEMP 98.1; O2SAT 96
[2015-11-07] MEDS: HYDROmorphone HCL PF 2 MG/ML VIAL IV PRN ×6 (00:09→22:10)
[2015-11-07] MEDS: CHLORHEXIDINE GLUCONATE 2 % 1 PACK (2 CLOTHS) TOP SCH ×2 (04:00→19:43)
[2015-11-07] MEDS: ENOXAPARIN SODIUM 60 MG/0.6 ML SYRINGE SQ SCH ×2 (04:10→18:16)
[2015-11-07] MEDS: ACETAMINOPHEN/HYDROcodone 325 MG/10 MG TAB PO PRN ×3 (04:10→20:10)
[2015-11-07 08:00] VITALS: BP 148/74; PULSE 68; RESP 16; TEMP 97.4; O2SAT 98
[2015-11-07] MEDS: CHLORHEXIDINE 0.12% (ORAL KIT) 15 ML CUP MT SCH ×2 (08:00→19:43)
[2015-11-07] MEDS: ARTIFICIAL TEARS OPTH SOLN 15 ML BTL EACH EYE SCH ×3 (09:00→18:00)
--- NOTE | 2015-11-07 10:00 | HHI.NSPN ---
(Zainab Mclain) History Chief Complaint: no verbal complaint (Zainab Mclain) Interval History 11/07/15: Patient is laying in bed resting comfortably, awaken to voice. ( Zainab Mclain) Exam Results Vital Signs Date Time Temp Pulse Resp B/P Pulse Ox O2 Delivery O2 Flow Rate FiO2 11/07/15 08:00 97.4 68 16 148/74 98 11/05/15 17:30 Nasal Cannula 2.00 11/04/15 17:55 21 Intake and Output 11/06/15 11/06/15 11/07/15 08:00 16:00 00:00 Intake Total 240 ml 720 ml 460 ml Output Total 750 ml 2100 ml 650 ml Balance -510 ml -1380 ml -190 ml (Zainab Mclain) Physical Examination Patient is lying in bed in no acute distress. Alert and oriented x 3. Speech is clear. Sensation intact to light touch in all extremities. Reports diffuse paresthesias in the right LE. Left LE is in a splint, moves toes to commands. Right LE at 1520; Quadriceps- 3-4, Tibialis anterior 2, Gastrocsoleus- 5 ( Zainab Mclain) Lab, Micro, Other Results Last Impressions Knee X-Ray 10/20/15 0000 Signed Impressions: Service Date/Time: September 09:04 - CONCLUSION: 1. Sideplate and screw fixation of comminuted distal left femur fracture. Nikita Mccray MD Chest X-Ray 10/17/15 0000 Signed Impressions: Service Date/Time: Saturday, October 17, 2015 08:21 - CONCLUSION: Bilateral airspace opacities persist without significant change. Andrei Pérez MD IVC Filter Placement X-Ray 10/11/15 0000 Signed Impressions: Service Date/Time: Sunday, October 11, 2015 09:30 - CONCLUSION: Uncomplicated inferior vena cava filter placement as above. Andrei Alva MD Hand X-Ray 10/08/15 0000 Signed Impressions: Service Date/Time: Thursday, October 08, 2015 05:22 - CONCLUSION: Debris within the soft tissues of the proximal fourth digit. John Mcdonald MD (Zainab Mclain) Medical Decision Making Impression and Plan Impression: 1. T9 distraction-type fracture without significant retropulsion or subluxation. No evidence of thoracic myelopathy. 2. Small C3 fracture. Appears stable without neurologic compromise. This may be artifactual. 3. Morbid obesity. Plan: Discussed the risks and benefits of surgery for over 15 minutes today with the patient. I explained his thoracic injury is unstable and moving around in bed he is at risk of spinal cord injury including paralysis. I explained we would like to proceed with surgery if we are able to get him positioned in the OR and can see his pedicles. I explained we will not make an incision unless we are sure the pedicle screw can be placed. He appeared to understand the above but indicates he is not inclined to proceed with surgery since he has already laid in bed a month, he feels its the lesser risk to continue to lay in bed. I explained there are complications such as pneumonia and blood clots from being immobile in bed. He expressed understanding of these things. He states several times he scared of dying "on the table" because someone told him that was a possibility. I explained he was at increased risk of anesthesia heart and lung problems due to his size. I offered to have an anesthesias hospice team lead come by and talk to him if they were available. He was agreeable to this. He indicated many different doctors have told him different things. I explained as far as this back and the thoracic surgery is concerned he should only concern himself with what Dr. Herbert says. I told him I will have Dr. Herbert come by again today and we will make a final decision about the surgery today. He is now tentatively scheduled for 11/07. Continue current care. Log roll q [address] Herbert went and saw the patient at 1520. He explained again this type of ligament injury will not heal and he will not be able to safely mobilize out of bed until it is surgically stabilized. Mr. Ta expressed understanding of this. He is agreeable to go today to the OR and try the table and x-ray to see if the equipment will accommodate him for surgery tomorrow. (Zainab Mclain) Attending Statement On the date of this note, the undersigned had a [id number] encounter with the patient. I personally examined the patient, obtained pertinent history, and reviewed the electronic medical record including pertinent laboratory results and imaging studies. I personally developed the treatment plan and perform medical decision making. All of the above was performed in the presence of the physician's chemical laboratory assistant, who has scribed my findings into the medical record as noted above.. I reviewed again the nature of the thoracic injury with the patient. This felt that he has a significant ligament injury with significant distraction , and likely does not have a good chance of healing well with bed rest alone. He declined transport to the operating room today in order to determine if he can be placed onto the bariatric table and image adequately for a surgical procedure. We will try at a later time if he agrees. (Gilberto Herbert MD) Zainab Mclain Nov 07, 2015 09:59 Gilberto Herbert MD Nov 07, 2015 20:35
[2015-11-07] MEDS: MULTIVITAMINS/IRON/MINERALS CHEWABLE TAB CHEW SCH (10:12)
[2015-11-07] MEDS: POLYETHYLENE GLYCOL 17 GM PKG PO SCH (10:12)
[2015-11-07] MEDS: PANTOPRAZOLE SOD 40 MG DELAYED RELEASE TAB PO SCH (10:13)
[2015-11-07] MEDS: DOCUSATE SODIUM 50 MG/SENNA 8.6 MG TAB PO SCH ×2 (10:13→19:43)
[2015-11-07] MEDS: LEVOFLOXACIN 750 MG/DEXTROSE 150 ML IV SCH (10:14)
[2015-11-07] MEDS: SODIUM CHLORIDE 0.9% FLUSH 5 ML FLUSH IVF SCH ×2 (10:15→19:43)
[2015-11-07] MEDS: NYSTATIN 100,000 U/GM PWD 15 GM BTL TOPICAL SCH ×2 (10:17→19:43)
[2015-11-07 12:00] VITALS: BP 125/82; PULSE 99; RESP 20; TEMP 96.1; O2SAT 94
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
[2015-11-07 16:00] VITALS: BP 114/82; PULSE 93; RESP 20; TEMP 97.8; O2SAT 95
[2015-11-07 20:00] VITALS: BP 141/64; PULSE 67; RESP 18; TEMP 97.3; O2SAT 94
[2015-11-08] VITALS: BP 136/64; PULSE 59; RESP 20; TEMP 97.4; O2SAT 93
[2015-11-08] MEDS: ENOXAPARIN SODIUM 60 MG/0.6 ML SYRINGE SQ SCH ×2 (03:37→16:28)
[2015-11-08] MEDS: HYDROmorphone HCL PF 2 MG/ML VIAL IV PRN ×4 (03:38→21:25)
[2015-11-08 08:00] VITALS: BP 138/84; PULSE 64; RESP 16; TEMP 96; O2SAT 96
[2015-11-08] MEDS: CHLORHEXIDINE 0.12% (ORAL KIT) 15 ML CUP MT SCH ×2 (08:00→20:39)
[2015-11-08] MEDS: MULTIVITAMINS/IRON/MINERALS CHEWABLE TAB CHEW SCH (08:21)
[2015-11-08] MEDS: DOCUSATE SODIUM 50 MG/SENNA 8.6 MG TAB PO SCH ×2 (08:21→20:37)
[2015-11-08] MEDS: PANTOPRAZOLE SOD 40 MG DELAYED RELEASE TAB PO SCH (08:21)
[2015-11-08] MEDS: POLYETHYLENE GLYCOL 17 GM PKG PO SCH (08:21)
[2015-11-08] MEDS: NYSTATIN 100,000 U/GM PWD 15 GM BTL TOPICAL SCH ×2 (08:21→20:39)
[2015-11-08] MEDS: ARTIFICIAL TEARS OPTH SOLN 15 ML BTL EACH EYE SCH ×3 (08:21→18:00)
[2015-11-08] MEDS: ACETAMINOPHEN/HYDROcodone 325 MG/10 MG TAB PO PRN ×3 (08:22→22:32)
[2015-11-08] MEDS: SODIUM CHLORIDE 0.9% FLUSH 5 ML FLUSH IVF SCH ×2 (08:23→20:39)
[2015-11-08 12:00] VITALS: BP 130/71; PULSE 102; RESP 22; TEMP 97; O2SAT 94
[2015-11-08 16:00] VITALS: BP 131/65; PULSE 104; RESP 22; TEMP 97.7; O2SAT 94
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
[2015-11-08 20:00] VITALS: BP 134/70; PULSE 109; RESP 22; TEMP 97.9; O2SAT 95
[2015-11-09] VITALS: BP 140/81; PULSE 92; RESP 22; TEMP 97.7; O2SAT 98
[2015-11-09] MEDS: HYDROmorphone HCL PF 2 MG/ML VIAL IV PRN ×5 (01:37→23:03)
[2015-11-09] MEDS: ENOXAPARIN SODIUM 60 MG/0.6 ML SYRINGE SQ SCH ×2 (04:00→17:39)
[2015-11-09] MEDS: ACETAMINOPHEN/HYDROcodone 325 MG/10 MG TAB PO PRN ×4 (04:01→21:59)
[2015-11-09] MEDS: CHLORHEXIDINE GLUCONATE 2 % 1 PACK (2 CLOTHS) TOP SCH (04:05)
[2015-11-09] MEDS: CHLORHEXIDINE 0.12% (ORAL KIT) 15 ML CUP MT SCH ×2 (07:10→20:00)
[2015-11-09 08:00] VITALS: BP 140/75; PULSE 81; RESP 18; TEMP 96.9; O2SAT 90
[2015-11-09] MEDS: POLYETHYLENE GLYCOL 17 GM PKG PO SCH (09:00)
[2015-11-09] MEDS: PANTOPRAZOLE SOD 40 MG DELAYED RELEASE TAB PO SCH (09:07)
[2015-11-09] MEDS: MULTIVITAMINS/IRON/MINERALS CHEWABLE TAB CHEW SCH (09:07)
[2015-11-09] MEDS: DOCUSATE SODIUM 50 MG/SENNA 8.6 MG TAB PO SCH ×2 (09:07→21:58)
[2015-11-09] MEDS: NYSTATIN 100,000 U/GM PWD 15 GM BTL TOPICAL SCH ×2 (09:11→21:00)
[2015-11-09] MEDS: ARTIFICIAL TEARS OPTH SOLN 15 ML BTL EACH EYE SCH ×3 (09:11→17:41)
[2015-11-09] MEDS: SODIUM CHLORIDE 0.9% FLUSH 5 ML FLUSH IVF SCH ×2 (09:15→21:59)
[2015-11-09 12:00] VITALS: BP 123/70; PULSE 104; RESP 20; TEMP 97.3; O2SAT 98
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
[2015-11-09 16:00] VITALS: BP 133/74; PULSE 81; RESP 20; TEMP 97.5; O2SAT 96
[2015-11-09 20:00] VITALS: BP 126/71; PULSE 81; RESP 18; TEMP 97.3; O2SAT 97
[2015-11-10] VITALS: BP 132/88; PULSE 91; RESP 20; TEMP 96.6; O2SAT 96
[2015-11-10] MEDS: HYDROmorphone HCL PF 2 MG/ML VIAL IV PRN ×4 (03:36→21:41)
[2015-11-10] MEDS: ONDANSETRON HCL 4 MG/2 ML VIAL IV PRN (03:37)
[2015-11-10] MEDS: ENOXAPARIN SODIUM 60 MG/0.6 ML SYRINGE SQ SCH ×2 (03:37→17:19)
[2015-11-10] MEDS: CHLORHEXIDINE GLUCONATE 2 % 1 PACK (2 CLOTHS) TOP SCH (04:00)
[2015-11-10] MEDS: ACETAMINOPHEN/HYDROcodone 325 MG/10 MG TAB PO PRN ×2 (04:56→10:12)
[2015-11-10] MEDS: MULTIVITAMINS/IRON/MINERALS CHEWABLE TAB CHEW SCH (07:40)
[2015-11-10] MEDS: PANTOPRAZOLE SOD 40 MG DELAYED RELEASE TAB PO SCH (07:40)
[2015-11-10] MEDS: DOCUSATE SODIUM 50 MG/SENNA 8.6 MG TAB PO SCH ×2 (07:40→21:40)
[2015-11-10] MEDS: POLYETHYLENE GLYCOL 17 GM PKG PO SCH (07:41)
[2015-11-10] MEDS: SODIUM CHLORIDE 0.9% FLUSH 5 ML FLUSH IVF SCH ×2 (07:43→21:41)
[2015-11-10] MEDS: NYSTATIN 100,000 U/GM PWD 15 GM BTL TOPICAL SCH ×2 (07:44→21:42)
[2015-11-10] MEDS: CHLORHEXIDINE 0.12% (ORAL KIT) 15 ML CUP MT SCH ×2 (07:44→20:00)
[2015-11-10] MEDS: ARTIFICIAL TEARS OPTH SOLN 15 ML BTL EACH EYE SCH ×3 (07:44→17:20)
[2015-11-10 08:00] VITALS: BP 141/82; PULSE 103; RESP 20; TEMP 96.5; O2SAT 98
--- NOTE | 2015-11-10 10:28 | RADRPT ---
EXAM DATE/TIME: 11/10/2015 09:35 [facility] COMPARISON: CT THORACIC SPINE W/O CONTRAST, October 03, 2015, 16:22. INDICATIONS : Follow up spine fractures. RADIATION DOSE: 40.95 CTDIvol (mGy) ; Combined studies - Thoracic Spine/Lumbar Spine MEDICAL HISTORY : None SURGICAL HISTORY : None. ENCOUNTER: Initial ACUITY: 1 month PAIN SCALE: 10/10 LOCATION: Upper back TECHNIQUE: Volumetric scanning of the thoracic spine was performed. Multiplanar reconstructions in the sagittal , coronal and oblique axial planes were performed. Using automated exposure control and adjustment o f the mA and/or kV according to patient size, radiation dose was kept as low as reasonably achievable to obtain optimal diagnostic quality images. FINDINGS: A T9 fracture involving the superior anterior aspect of the vertebral body and superior endplate is d eveloping marginal callous with ossification. The fracture fragments are stable without significant d isplacement. Posterior elements remain intact without evidence of displaced fracture. Thoracic spine is otherwise stable. CONCLUSION: Unchanged alignment of fracture fragments involving the T9 vertebral body. There is no compromise of the central spinal canal or evidence of fractures involving the posterior elements. Ossified callus is identified along the fracture margins. Otherwise stable thoracic spine. Sigifredo Oviedo MD on November 10, 2015 at 10:20 Board Certified Radiologist. This report was verified electronically.
--- NOTE | 2015-11-10 10:44 | RADRPT ---
EXAM DATE/TIME: 11/10/2015 09:35 [facility] COMPARISON: CT LUMBAR SPINE W/O CONTRAST, October 03, 2015, 16:22. INDICATIONS : Follow up spine fracture. RADIATION DOSE: 40.95 CTDIvol (mGy) ; Combined studies - Thoracic Spine/Lumbar Spine MEDICAL HISTORY : None SURGICAL HISTORY : None. ENCOUNTER: Initial ACUITY: 1 week PAIN SCALE: 10/10 LOCATION: Lower back TECHNIQUE: Volumetric scanning of the lumbar spine was performed. Multiplanar reconstructions in the sagittal, coronal and oblique axial planes were performed. Using automated exposure control and adjustment of the mA and/or kV according to patient size, radiation dose was kept as low as reasonably achievable t o obtain optimal diagnostic quality images. FINDINGS: Lumbar alignment is stable compared to the previous study in September. There is no evidence of signific ant vertebral body height loss. Posterior elements appear intact. Degenerative disc disease is again evident at the T12-L1 level with a posterior osteophyte disc compl ex. There is moderate anterior epidural effacement with moderate central spinal stenosis. CONCLUSION: Stable lumbar spine and alignment without evidence of acute fracture. Moderate size posterior osteophyte disc complex at T12-L1 causing moderate central spinal stenosis. Sigifredo Oviedo MD on November 10, 2015 at 10:38 Board Certified Radiologist. This report was verified electronically.
[2015-11-10 12:00] VITALS: BP 141/66; PULSE 94; RESP 18; TEMP 97.4; O2SAT 91
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
[2015-11-10 16:00] VITALS: BP 133/84; PULSE 106; RESP 20; TEMP 97.7; O2SAT 93
[2015-11-10 20:00] VITALS: BP 120/64; PULSE 88; RESP 17; TEMP 96.5; O2SAT 99
--- NOTE | 2015-11-10 22:13 | HHI.NSPN ---
History Chief Complaint: no verbal complaint Exam Results Vital Signs Date Time Temp Pulse Resp B/P Pulse Ox O2 Delivery O2 Flow Rate FiO2 11/10/15 16:00 97.7 106 20 133/84 93 Intake and Output 11/09/15 11/09/15 11/10/15 08:00 16:00 00:00 Intake Total 1320 ml 840 ml 600 ml Output Total 2150 ml 1050 ml Balance 1320 ml -1310 ml -450 ml Physical Examination Patient is lying in bed in no acute distress Somewhat anxious. Alert and oriented x 3. Speech is clear. Sensation intact to light touch in all extremities. Reports diffuse paresthesias in the right LE. Left LE is in a splint, moves toes to commands. Right LE at 1520; Quadriceps- 3-4, Tibialis anterior 2, Gastrocsoleus- 5 Lab, Micro, Other Results 11/10/15 CT scan thoracic and lumbar spine images reviewed by the undersigned. Agree with findings as noted below: There remains mild separation of the T9-10 facet without significant subluxation. Thoracic Spine CT 11/10/15 0000 Signed Impressions: Service Date/Time: October 09:35 - CONCLUSION: Unchanged alignment of fracture fragments involving the T9 vertebral body. There is no compromise of the central spinal canal or evidence of fractures involving the posterior elements. Ossified callus is identified along the fracture margins. Otherwise stable thoracic spine. Sigifredo Oviedo MD Lumbar Spine CT 11/10/15 0000 Signed Impressions: Service Date/Time: October 09:35 - CONCLUSION: Stable lumbar spine and alignment without evidence of acute fracture. Moderate size posterior osteophyte disc complex at T12-L1 causing moderate central spinal stenosis. Sigifredo Oviedo MD Medical Decision Making Impression and Plan Impression: T9 10 fracture with distraction type injury. Patient has some evidence of chronic degenerative changes with anterior osteophyte formation at this level. Follow-up CT scan 11/10/15 reveals stable alignment with possibly some early bridging osteophyte formation. Recommendations: Patient was taken to the operating room today for an assessment of his ability to be positioned on the bariatric table for a spinal surgical procedure and to check imaging quality, which appeared satisfactory. Subsequently, he was taken to CT scan for imaging with results as noted above. Although he appears to have significant ligament distraction injury at the T9 10 level, it does appear that he is developing some early bridging osteophyte formation along the site of the injury. It is possible that he could go on to stabilize this region, although given his weight and stress on the injury site, there remains a potential for persistent instability and subluxation with weightbearing. The findings will be discussed again with the patient in regards to his treatment options. Gilberto Herbert MD Nov 10, 2015 22:12
[2015-11-11] VITALS: BP 125/60; PULSE 92; RESP 17; TEMP 96.9; O2SAT 95
[2015-11-11] MEDS: HYDROmorphone HCL PF 2 MG/ML VIAL IV PRN ×4 (02:01→17:55)
[2015-11-11] MEDS: CHLORHEXIDINE GLUCONATE 2 % 1 PACK (2 CLOTHS) TOP SCH (03:56)
[2015-11-11] MEDS: ENOXAPARIN SODIUM 60 MG/0.6 ML SYRINGE SQ SCH ×2 (04:51→16:22)
[2015-11-11 08:00] VITALS: BP 129/63; PULSE 103; RESP 20; TEMP 97.1; O2SAT 94
[2015-11-11] MEDS: CHLORHEXIDINE 0.12% (ORAL KIT) 15 ML CUP MT SCH (08:00)
[2015-11-11] MEDS: DOCUSATE SODIUM 50 MG/SENNA 8.6 MG TAB PO SCH ×2 (08:49→22:14)
[2015-11-11] MEDS: MULTIVITAMINS/IRON/MINERALS CHEWABLE TAB CHEW SCH (08:49)
[2015-11-11] MEDS: PANTOPRAZOLE SOD 40 MG DELAYED RELEASE TAB PO SCH (08:49)
[2015-11-11] MEDS: NYSTATIN 100,000 U/GM PWD 15 GM BTL TOPICAL SCH ×2 (08:50→22:18)
[2015-11-11] MEDS: POLYETHYLENE GLYCOL 17 GM PKG PO SCH (08:50)
[2015-11-11] MEDS: SODIUM CHLORIDE 0.9% FLUSH 5 ML FLUSH IVF SCH ×2 (08:50→22:18)
[2015-11-11] MEDS: ARTIFICIAL TEARS OPTH SOLN 15 ML BTL EACH EYE SCH ×3 (08:50→16:22)
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
[2015-11-11 12:00] VITALS: BP 120/62; PULSE 92; RESP 16; TEMP 96.6; O2SAT 97
[2015-11-11 20:00] VITALS: BP 109/62; PULSE 111; RESP 17; TEMP 97.7; O2SAT 94
[2015-11-11] MEDS: RANITIDINE HCL 150 MG TAB PO SCH (22:15)
[2015-11-12] VITALS: BP 117/68; PULSE 92; RESP 17; TEMP 96.8; O2SAT 95
[2015-11-12] MEDS: HYDROmorphone HCL PF 2 MG/ML VIAL IV PRN ×4 (00:38→21:21)
[2015-11-12] MEDS: CHLORHEXIDINE GLUCONATE 2 % 1 PACK (2 CLOTHS) TOP SCH (04:00)
[2015-11-12] MEDS: ENOXAPARIN SODIUM 60 MG/0.6 ML SYRINGE SQ SCH ×2 (04:02→14:38)
[2015-11-12 08:00] VITALS: BP 148/81; PULSE 82; RESP 18; TEMP 99; O2SAT 95
[2015-11-12] MEDS: MULTIVITAMINS/IRON/MINERALS CHEWABLE TAB CHEW SCH (08:44)
[2015-11-12] MEDS: RANITIDINE HCL 150 MG TAB PO SCH ×2 (08:44→21:21)
[2015-11-12] MEDS: POLYETHYLENE GLYCOL 17 GM PKG PO SCH (08:44)
[2015-11-12] MEDS: ARTIFICIAL TEARS OPTH SOLN 15 ML BTL EACH EYE SCH ×3 (08:45→15:56)
[2015-11-12] MEDS: DOCUSATE SODIUM 50 MG/SENNA 8.6 MG TAB PO SCH ×2 (08:45→21:21)
[2015-11-12] MEDS: SODIUM CHLORIDE 0.9% FLUSH 5 ML FLUSH IVF SCH ×2 (08:45→21:21)
[2015-11-12] MEDS: NYSTATIN 100,000 U/GM PWD 15 GM BTL TOPICAL SCH (08:46)
[2015-11-12 12:00] VITALS: BP 144/69; PULSE 94; RESP 18; TEMP 96.2; O2SAT 95
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
[2015-11-12 16:00] VITALS: BP 146/74; PULSE 90; RESP 18; TEMP 96.5; O2SAT 96
[2015-11-12 20:00] VITALS: BP 136/74; PULSE 65; RESP 20; TEMP 97.6; O2SAT 93
[2015-11-13] VITALS: BP 130/70; PULSE 72; RESP 20; TEMP 98; O2SAT 95
[2015-11-13] MEDS: HYDROmorphone HCL PF 2 MG/ML VIAL IV PRN ×5 (00:53→23:31)
[2015-11-13] MEDS: CHLORHEXIDINE GLUCONATE 2 % 1 PACK (2 CLOTHS) TOP SCH (04:00)
[2015-11-13] MEDS: NYSTATIN 100,000 U/GM PWD 15 GM BTL TOPICAL SCH ×3 (04:48→21:40)
[2015-11-13] MEDS: ENOXAPARIN SODIUM 60 MG/0.6 ML SYRINGE SQ SCH ×2 (04:48→16:11)
[2015-11-13] MEDS: ONDANSETRON HCL 4 MG/2 ML VIAL IV PRN ×3 (04:49→23:35)
[2015-11-13 08:00] VITALS: BP 143/71; PULSE 85; RESP 17; TEMP 96.6; O2SAT 95
[2015-11-13] MEDS: DOCUSATE SODIUM 50 MG/SENNA 8.6 MG TAB PO SCH ×2 (08:30→21:40)
[2015-11-13] MEDS: MULTIVITAMINS/IRON/MINERALS CHEWABLE TAB CHEW SCH (08:30)
[2015-11-13] MEDS: RANITIDINE HCL 150 MG TAB PO SCH ×2 (08:30→21:40)
[2015-11-13] MEDS: POLYETHYLENE GLYCOL 17 GM PKG PO SCH (08:30)
[2015-11-13] MEDS: SODIUM CHLORIDE 0.9% FLUSH 5 ML FLUSH IVF SCH ×2 (08:32→21:40)
[2015-11-13] MEDS: ARTIFICIAL TEARS OPTH SOLN 15 ML BTL EACH EYE SCH ×3 (08:32→16:53)
[2015-11-13 12:00] VITALS: BP 114/70; PULSE 87; RESP 17; TEMP 97; O2SAT 96
[2015-11-13 16:00] VITALS: BP 116/76; PULSE 88; RESP 17; TEMP 97.2; O2SAT 91
[2015-11-13 20:00] VITALS: BP 128/78; PULSE 87; RESP 20; TEMP 97.6; O2SAT 93
[2015-11-14] VITALS: BP 124/64; PULSE 84; RESP 20; TEMP 98; O2SAT 93
[2015-11-14] MEDS: CHLORHEXIDINE GLUCONATE 2 % 1 PACK (2 CLOTHS) TOP SCH (04:00)
[2015-11-14] MEDS: ENOXAPARIN SODIUM 60 MG/0.6 ML SYRINGE SQ SCH ×2 (05:04→17:39)
[2015-11-14] MEDS: HYDROmorphone HCL PF 2 MG/ML VIAL IV PRN ×4 (06:05→19:49)
[2015-11-14] MEDS: ONDANSETRON HCL 4 MG/2 ML VIAL IV PRN ×2 (06:08→14:02)
[2015-11-14 08:00] VITALS: BP 126/60; PULSE 87; RESP 19; TEMP 96.9; O2SAT 93
[2015-11-14] MEDS: NYSTATIN 100,000 U/GM PWD 15 GM BTL TOPICAL SCH ×2 (09:00→21:00)
[2015-11-14] MEDS: POLYETHYLENE GLYCOL 17 GM PKG PO SCH (09:00)
[2015-11-14] MEDS: ARTIFICIAL TEARS OPTH SOLN 15 ML BTL EACH EYE SCH ×3 (09:00→17:39)
[2015-11-14] MEDS: DOCUSATE SODIUM 50 MG/SENNA 8.6 MG TAB PO SCH ×2 (09:00→19:48)
[2015-11-14] MEDS: MULTIVITAMINS/IRON/MINERALS CHEWABLE TAB CHEW SCH (09:00)
[2015-11-14] MEDS: RANITIDINE HCL 150 MG TAB PO SCH ×2 (09:57→19:48)
[2015-11-14] MEDS: SODIUM CHLORIDE 0.9% FLUSH 5 ML FLUSH IVF SCH ×2 (09:58→19:50)
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
[2015-11-14 12:00] VITALS: BP 124/64; PULSE 88; RESP 20; TEMP 97; O2SAT 94
[2015-11-14 16:00] VITALS: BP 135/60; PULSE 84; RESP 20; TEMP 96.1; O2SAT 92
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
[2015-11-14] MEDS: diphenhydrAMINE HCL 25 MG CAP PO PRN (19:48)
--- NOTE | 2015-11-14 19:55 | RADRPT ---
EXAM DATE/TIME: 11/14/2015 19:13 [facility] COMPARISON: No previous studies available for comparison. INDICATIONS : Lower extremity edema. MEDICAL HISTORY : Venous statsis, lower extemity. Chronic back pain. Substance use. MRSA. SURGICAL HISTORY : None. No significant surgical history. ENCOUNTER: Subsequent ACUITY: 1 day PAIN SCORE: 0/10 LOCATION: Right leg. TECHNIQUE: Venous ultrasound of the leg was performed from the inguinal ligament to the proximal calf. Real-jhon e, color Doppler and spectral tracing, compression and augmentation techniques were used. FINDINGS: There is normal compressibility of the deep venous system from the inguinal region to the proximal ca lf. No echogenic clot is seen in the lumen of the common femoral, femoral, popliteal, and posterior tibial veins. There is a normal response of the venous system to proximal and distal augmentation an d respiration. CONCLUSION: No DVT right lower extremity. Andrei Pérez MD on November 14, 2015 at 19:53 Board Certified Radiologist. This report was verified electronically.
[2015-11-14 20:00] VITALS: BP 123/64; PULSE 79; RESP 19; TEMP 96.8; O2SAT 95
[2015-11-15] VITALS: BP 150/76; PULSE 84; RESP 21; TEMP 96.3; O2SAT 93
[2015-11-15] MEDS: CHLORHEXIDINE GLUCONATE 2 % 1 PACK (2 CLOTHS) TOP SCH (04:00)
[2015-11-15] MEDS: ENOXAPARIN SODIUM 60 MG/0.6 ML SYRINGE SQ SCH ×2 (05:34→14:42)
[2015-11-15 06:01] LABS: AUTOMATED NEUTROPHIL # 4.5 TH/MM3 (1.8-7.7); BASOPHIL % 0.5 % (0.0-2.0); EOSINOPHIL # 0.5 TH/MM3 (0-0.4); EOSINOPHIL % 7.5 % (0.0-4.0); HEMATOCRIT 30.3 % (39.0-51.0); LYMPH % 18.6 % (9.0-44.0); LYMPHOCYTE # 1.3 TH/MM3 (1.0-4.8); MEAN CELL VOLUME 72.8 FL (80.0-100.0); MEAN CORPUSCULAR HEMOGLOBIN 23.6 PG (27.0-34.0); MEAN CORPUSCULAR HGB CONC 32.5 % (32.0-36.0); MONO % 6.3 % (0.0-8.0); NEUT % 67.1 % (16.0-70.0); PLATELET COUNT 230 TH/MM3 (150-450); RED BLOOD COUNT 4.16 MIL/MM3 (4.50-5.90); RED CELL DISTRIBUTION WIDTH 18.6 % (11.6-17.2); WHITE BLOOD COUNT 6.8 TH/MM3 (4.0-11.0)
[2015-11-15 06:08] LABS: HEMO FLAGS AUTO DIFF
[2015-11-15 06:26] LABS: BICARBONATE 35.7 MEQ/L (21.0-32.0)
[2015-11-15] MEDS: HYDROmorphone HCL PF 2 MG/ML VIAL IV PRN ×4 (06:27→19:02)
[2015-11-15 06:34] LABS: POTASSIUM 4.8 MEQ/L (3.5-5.1)
[2015-11-15 08:00] VITALS: BP 133/70; PULSE 83; RESP 17; TEMP 98; O2SAT 92
[2015-11-15 08:12] LABS: SCAN/DIFF AUTO DIFF CONFIRMED
[2015-11-15] MEDS: DOCUSATE SODIUM 50 MG/SENNA 8.6 MG TAB PO SCH ×2 (09:00→21:27)
[2015-11-15] MEDS: NYSTATIN 100,000 U/GM PWD 15 GM BTL TOPICAL SCH ×2 (09:00→21:00)
[2015-11-15] MEDS: POLYETHYLENE GLYCOL 17 GM PKG PO SCH (09:00)
[2015-11-15] MEDS: RANITIDINE HCL 150 MG TAB PO SCH ×2 (10:24→21:27)
[2015-11-15] MEDS: MULTIVITAMINS/IRON/MINERALS CHEWABLE TAB CHEW SCH (10:24)
[2015-11-15] MEDS: SODIUM CHLORIDE 0.9% FLUSH 5 ML FLUSH IVF SCH ×2 (10:25→21:28)
[2015-11-15] MEDS: ARTIFICIAL TEARS OPTH SOLN 15 ML BTL EACH EYE SCH ×3 (10:29→18:25)
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
[2015-11-15 12:00] VITALS: BP 128/68; PULSE 89; RESP 16; TEMP 97.4; O2SAT 92
[2015-11-15 16:00] VITALS: BP 133/70; PULSE 84; RESP 18; TEMP 96.3; O2SAT 97
[2015-11-15 20:00] VITALS: BP 138/70; PULSE 92; RESP 20; TEMP 97.4; O2SAT 94
[2015-11-16] VITALS: BP 158/69; PULSE 101; RESP 20; TEMP 99.8; O2SAT 93
[2015-11-16] MEDS: CHLORHEXIDINE GLUCONATE 2 % 1 PACK (2 CLOTHS) TOP SCH (04:00)
[2015-11-16] MEDS: ENOXAPARIN SODIUM 60 MG/0.6 ML SYRINGE SQ SCH ×2 (04:36→15:00)
[2015-11-16] MEDS: HYDROmorphone HCL PF 2 MG/ML VIAL IV PRN ×4 (05:40→19:48)
[2015-11-16 08:18] VITALS: BP 138/93; PULSE 76; RESP 14; TEMP 97.8; O2SAT 95
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
[2015-11-16] MEDS: POLYETHYLENE GLYCOL 17 GM PKG PO SCH ×2 (09:00→09:29)
[2015-11-16] MEDS: MULTIVITAMINS/IRON/MINERALS CHEWABLE TAB CHEW SCH (09:29)
[2015-11-16] MEDS: RANITIDINE HCL 150 MG TAB PO SCH ×2 (09:29→19:47)
[2015-11-16] MEDS: DOCUSATE SODIUM 50 MG/SENNA 8.6 MG TAB PO SCH ×2 (09:29→19:47)
[2015-11-16] MEDS: NYSTATIN 100,000 U/GM PWD 15 GM BTL TOPICAL SCH ×2 (09:31→19:54)
[2015-11-16] MEDS: ARTIFICIAL TEARS OPTH SOLN 15 ML BTL EACH EYE SCH ×3 (09:32→16:51)
[2015-11-16] MEDS: SODIUM CHLORIDE 0.9% FLUSH 5 ML FLUSH IVF SCH ×2 (09:32→19:47)
[2015-11-16 12:01] VITALS: BP 135/75; PULSE 96; RESP 14; TEMP 98.1; O2SAT 94
[2015-11-16] MEDS: SODIUM CHLORIDE 0.9% FLUSH 5 ML FLUSH IVF PRN (14:59)
[2015-11-16 16:42] VITALS: BP 166/89; PULSE 98; RESP 14; TEMP 98.2; O2SAT 94
[2015-11-16 20:24] VITALS: BP 143/65; PULSE 50; PULSE 80; RESP 20; TEMP 96.4; O2SAT 95
[2015-11-17] MEDS: SODIUM CHLORIDE 0.9% FLUSH 5 ML FLUSH IVF PRN ×2 (00:03→04:24)
[2015-11-17] MEDS: HYDROmorphone HCL PF 2 MG/ML VIAL IV PRN ×2 (00:04→04:25)
[2015-11-17 00:05] VITALS: BP 140/65; PULSE 94; RESP 20; TEMP 96; O2SAT 98
[2015-11-17] MEDS: CHLORHEXIDINE GLUCONATE 2 % 1 PACK (2 CLOTHS) TOP SCH (04:00)
[2015-11-17] MEDS: ENOXAPARIN SODIUM 60 MG/0.6 ML SYRINGE SQ SCH ×2 (04:24→17:37)
[2015-11-17] MEDS: POLYETHYLENE GLYCOL 17 GM PKG PO SCH (07:26)
[2015-11-17 08:00] VITALS: BP 126/65; PULSE 50; RESP 17; TEMP 96; O2SAT 94
[2015-11-17] MEDS: MULTIVITAMINS/IRON/MINERALS CHEWABLE TAB CHEW SCH (08:44)
[2015-11-17] MEDS: DOCUSATE SODIUM 50 MG/SENNA 8.6 MG TAB PO SCH ×2 (08:44→20:32)
[2015-11-17] MEDS: RANITIDINE HCL 150 MG TAB PO SCH ×2 (08:44→20:30)
[2015-11-17] MEDS: NYSTATIN 100,000 U/GM PWD 15 GM BTL TOPICAL SCH ×2 (08:46→20:32)
[2015-11-17] MEDS: ARTIFICIAL TEARS OPTH SOLN 15 ML BTL EACH EYE SCH ×3 (08:46→17:38)
[2015-11-17] MEDS: SODIUM CHLORIDE 0.9% FLUSH 5 ML FLUSH IVF SCH ×2 (08:47→20:31)
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
[2015-11-17 12:00] VITALS: BP 132/83; PULSE 79; RESP 16; TEMP 98.4; O2SAT 94
[2015-11-17 20:15] VITALS: BP 135/67; PULSE 82; RESP 20; TEMP 98.9; O2SAT 96
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
[2015-11-17 23:41] VITALS: BP 138/83; PULSE 76; RESP 18; TEMP 98.4; O2SAT 96
[2015-11-18] MEDS: CHLORHEXIDINE GLUCONATE 2 % 1 PACK (2 CLOTHS) TOP SCH (04:00)
[2015-11-18] MEDS: ENOXAPARIN SODIUM 60 MG/0.6 ML SYRINGE SQ SCH ×2 (04:21→17:06)
[2015-11-18] MEDS: POLYETHYLENE GLYCOL 17 GM PKG PO SCH (07:06)
[2015-11-18 08:00] VITALS: BP 148/77; PULSE 89; RESP 16; TEMP 96.7; O2SAT 94
[2015-11-18] MEDS: DOCUSATE SODIUM 50 MG/SENNA 8.6 MG TAB PO SCH ×2 (09:00→20:37)
[2015-11-18] MEDS: SODIUM CHLORIDE 0.9% FLUSH 5 ML FLUSH IVF SCH ×2 (09:00→21:00)
[2015-11-18] MEDS: MULTIVITAMINS/IRON/MINERALS CHEWABLE TAB CHEW SCH (09:03)
[2015-11-18] MEDS: HYDROmorphone HCL 4 MG TAB PO PRN ×4 (09:03→23:41)
[2015-11-18] MEDS: RANITIDINE HCL 150 MG TAB PO SCH ×2 (09:03→20:36)
[2015-11-18] MEDS: ARTIFICIAL TEARS OPTH SOLN 15 ML BTL EACH EYE SCH ×3 (09:05→17:06)
[2015-11-18] MEDS: NYSTATIN 100,000 U/GM PWD 15 GM BTL TOPICAL SCH ×2 (09:06→20:37)
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
[2015-11-18 12:00] VITALS: BP 128/82; PULSE 65; RESP 18; TEMP 97.1; O2SAT 95
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
--- NOTE | 2015-11-18 13:41 | PD.PLAS.PN ---
Subjective Remarks Patient is resting comfortably. He is requesting to move forward with scheduling surgery for repair of the extensor tendon of the right fourth finger. Objective Vital Signs Date Time Temp Pulse Resp B/P Pulse Ox O2 Delivery O2 Flow Rate FiO2 11/18/15 12:00 97.1 65 18 128/82 95 11/18/15 08:00 96.7 89 16 148/77 94 11/17/15 23:41 98.4 76 18 138/83 96 11/17/15 20:15 98.9 82 20 135/67 96 I/O 11/17/15 11/17/15 11/17/15 11/18/15 11/18/15 11/18/15 07:00 15:00 23:00 07:00 15:00 23:00 Intake Total 560 ml 1440 ml 480 ml 360 ml Output Total 5 ml Balance 560 ml 1435 ml 480 ml 360 ml Intake Oral 560 ml 1440 ml 480 ml 360 ml IV Total 0 ml Output Urine Total 5 ml # Voids 2 2 2 # Bowel Movements 0 0 Result Diagram: 11/15/15 0510 11/15/15 0510 Exam Findings There is an open wound to the dorsal fourth finger, just proximal to the PIP joint. There is a possible foreign body palpable in the tissue. Otherwise no change to physical exam. Assessment and Plan Diagnosis: (1) Extensor tendon laceration, hand, open wound Plan: The patient would like to have surgery to have the extensor tendon of the right fourth finger repaired. We will also explore the wound of the right fourth finger for foreign body at that same time. The procedure is explained and the patient is made aware of risks, complications, and postoperative course. Specifically, we discussed that he would be splinted for 4 weeks postoperatively and would likely require therapy to regain range of motion. He indicated that he understood and opted to proceed. We will try to get the procedure scheduled for next week. We will enter orders for consent and when he should be NPO. Discussed with Constance Saldivar Nov 18, 2015 13:41
[2015-11-18 16:00] VITALS: BP 144/75; PULSE 84; RESP 17; TEMP 97; O2SAT 96
[2015-11-18 20:00] VITALS: BP 142/81; PULSE 97; RESP 16; TEMP 97.3; O2SAT 95
[2015-11-19] VITALS: BP 136/84; PULSE 81; RESP 16; TEMP 97.8; O2SAT 94
[2015-11-19] MEDS: CHLORHEXIDINE GLUCONATE 2 % 1 PACK (2 CLOTHS) TOP SCH (04:00)
[2015-11-19] MEDS: ENOXAPARIN SODIUM 60 MG/0.6 ML SYRINGE SQ SCH ×2 (04:11→15:38)
[2015-11-19] MEDS: HYDROmorphone HCL 4 MG TAB PO PRN ×3 (04:13→17:01)
[2015-11-19 08:00] VITALS: BP 168/79; PULSE 65; RESP 21; TEMP 97.7; O2SAT 96
[2015-11-19] MEDS: POLYETHYLENE GLYCOL 17 GM PKG PO SCH (09:00)
[2015-11-19] MEDS: RANITIDINE HCL 150 MG TAB PO SCH ×2 (09:10→22:31)
[2015-11-19] MEDS: DOCUSATE SODIUM 50 MG/SENNA 8.6 MG TAB PO SCH ×2 (09:10→22:31)
[2015-11-19] MEDS: SODIUM CHLORIDE 0.9% FLUSH 5 ML FLUSH IVF SCH ×2 (09:11→22:31)
[2015-11-19] MEDS: MULTIVITAMINS/IRON/MINERALS CHEWABLE TAB CHEW SCH (09:11)
[2015-11-19] MEDS: ARTIFICIAL TEARS OPTH SOLN 15 ML BTL EACH EYE SCH ×3 (09:11→17:01)
[2015-11-19] MEDS: NYSTATIN 100,000 U/GM PWD 15 GM BTL TOPICAL SCH ×2 (09:12→22:32)
[2015-11-19 12:22] VITALS: BP 142/67; PULSE 79; RESP 19; TEMP 97; O2SAT 96
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
[2015-11-19 16:00] VITALS: BP 142/78; PULSE 89; RESP 20; TEMP 98; O2SAT 98
[2015-11-19 20:00] VITALS: BP 132/67; PULSE 97; RESP 17; TEMP 96.9; O2SAT 95
[2015-11-20] VITALS: BP 131/76; PULSE 80; RESP 18; TEMP 96; O2SAT 95
[2015-11-20] MEDS: CHLORHEXIDINE GLUCONATE 2 % 1 PACK (2 CLOTHS) TOP SCH (04:00)
[2015-11-20] MEDS: ENOXAPARIN SODIUM 60 MG/0.6 ML SYRINGE SQ SCH ×2 (04:02→16:47)
[2015-11-20 08:00] VITALS: BP 151/77; PULSE 84; RESP 21; TEMP 98; O2SAT 95
[2015-11-20] MEDS: HYDROmorphone HCL 4 MG TAB PO PRN ×2 (08:47→16:47)
[2015-11-20] MEDS: RANITIDINE HCL 150 MG TAB PO SCH ×2 (08:47→22:19)
[2015-11-20] MEDS: MULTIVITAMINS/IRON/MINERALS CHEWABLE TAB CHEW SCH (08:47)
[2015-11-20] MEDS: SODIUM CHLORIDE 0.9% FLUSH 5 ML FLUSH IVF SCH ×2 (08:48→23:10)
[2015-11-20] MEDS: NYSTATIN 100,000 U/GM PWD 15 GM BTL TOPICAL SCH ×2 (08:48→22:20)
[2015-11-20] MEDS: POLYETHYLENE GLYCOL 17 GM PKG PO SCH (08:48)
[2015-11-20] MEDS: DOCUSATE SODIUM 50 MG/SENNA 8.6 MG TAB PO SCH ×2 (08:48→22:19)
[2015-11-20] MEDS: ARTIFICIAL TEARS OPTH SOLN 15 ML BTL EACH EYE SCH ×3 (08:48→16:50)
--- NOTE | 2015-11-20 09:06 | HHI.PR ---
Subjective Subjective Notes Denies complaints. Says hand surgeon is making arrangements for surgery this week or next. Oral dilaudid for breakthrough working well. Objective Vitals/I&O Vital Signs Date Time Temp Pulse Resp B/P Pulse Ox O2 Delivery O2 Flow Rate FiO2 11/20/15 00:00 96.0 80 18 131/76 95 Radiology Last Impressions Knee X-Ray 10/20/15 0000 Signed Impressions: Service Date/Time: September 09:04 - CONCLUSION: 1. Sideplate and screw fixation of comminuted distal left femur fracture. Nikita Mccray MD Chest X-Ray 10/17/15 0000 Signed Impressions: Service Date/Time: Saturday, October 17, 2015 08:21 - CONCLUSION: Bilateral airspace opacities persist without significant change. Andrei Pérez MD IVC Filter Placement X-Ray 10/11/15 0000 Signed Impressions: Service Date/Time: Sunday, October 11, 2015 09:30 - CONCLUSION: Uncomplicated inferior vena cava filter placement as above. Andrei Alva MD Hand X-Ray 10/08/15 0000 Signed Impressions: Service Date/Time: Thursday, October 08, 2015 05:22 - CONCLUSION: Debris within the soft tissues of the proximal fourth digit. John Mcdonald MD Narrative Exam R hand stable. L leg well perfused. A/P Assessment and Plan T9 fx- non operative management. LLE fracture repaired. R hand tendon injury- for surgery soon. No acute changes Gregory Grimes MD Nov 20, 2015 09:06
[2015-11-20 12:00] VITALS: BP 160/81; PULSE 82; RESP 21; TEMP 98.1; O2SAT 96
[2015-11-20] MEDS: ONDANSETRON HCL 4 MG/2 ML VIAL IV PRN (12:32)
[2015-11-20 16:00] VITALS: BP 139/69; PULSE 85; RESP 17; TEMP 97.4; O2SAT 94
[2015-11-20 20:00] VITALS: BP 137/72; PULSE 98; RESP 17; TEMP 97.6; O2SAT 97
[2015-11-21] VITALS: BP 126/68; PULSE 92; RESP 17; TEMP 98; O2SAT 97
[2015-11-21] MEDS: HYDROmorphone HCL 4 MG TAB PO PRN ×3 (00:10→17:06)
[2015-11-21] MEDS: CHLORHEXIDINE GLUCONATE 2 % 1 PACK (2 CLOTHS) TOP SCH (04:00)
[2015-11-21] MEDS: ENOXAPARIN SODIUM 60 MG/0.6 ML SYRINGE SQ SCH ×2 (05:50→16:00)
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
[2015-11-21 08:00] VITALS: BP 142/73; PULSE 83; RESP 20; TEMP 96.7; O2SAT 95
[2015-11-21] MEDS: DOCUSATE SODIUM 50 MG/SENNA 8.6 MG TAB PO SCH ×2 (08:20→19:54)
[2015-11-21] MEDS: POLYETHYLENE GLYCOL 17 GM PKG PO SCH (08:20)
[2015-11-21] MEDS: RANITIDINE HCL 150 MG TAB PO SCH ×2 (08:20→19:54)
[2015-11-21] MEDS: MULTIVITAMINS/IRON/MINERALS CHEWABLE TAB CHEW SCH (08:20)
[2015-11-21] MEDS: SODIUM CHLORIDE 0.9% FLUSH 5 ML FLUSH IVF SCH ×2 (08:21→19:56)
[2015-11-21] MEDS: ARTIFICIAL TEARS OPTH SOLN 15 ML BTL EACH EYE SCH ×3 (08:21→18:00)
[2015-11-21] MEDS: NYSTATIN 100,000 U/GM PWD 15 GM BTL TOPICAL SCH ×2 (09:00→22:30)
[2015-11-21 12:00] VITALS: BP 133/69; PULSE 83; RESP 20; TEMP 96; O2SAT 96
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
[2015-11-21 16:00] VITALS: BP 167/73; PULSE 88; RESP 20; TEMP 97.6; O2SAT 95
[2015-11-21 20:00] VITALS: BP 145/79; PULSE 76; RESP 20; TEMP 98; O2SAT 97
[2015-11-22] VITALS: BP 140/72; PULSE 82; RESP 20; TEMP 97.8; O2SAT 96
[2015-11-22] MEDS: CHLORHEXIDINE GLUCONATE 2 % 1 PACK (2 CLOTHS) TOP SCH (04:00)
[2015-11-22] MEDS: ENOXAPARIN SODIUM 60 MG/0.6 ML SYRINGE SQ SCH ×2 (04:00→16:58)
[2015-11-22] MEDS: HYDROmorphone HCL 4 MG TAB PO PRN ×3 (05:26→18:55)
[2015-11-22 08:00] VITALS: BP 123/88; PULSE 75; RESP 18; TEMP 97.4; O2SAT 97
[2015-11-22] MEDS: POLYETHYLENE GLYCOL 17 GM PKG PO SCH ×2 (09:00→09:19)
[2015-11-22] MEDS: DOCUSATE SODIUM 50 MG/SENNA 8.6 MG TAB PO SCH ×2 (09:18→21:34)
[2015-11-22] MEDS: FAMOTIDINE 20 MG TAB PO SCH ×2 (09:18→21:34)
[2015-11-22] MEDS: MULTIVITAMINS/IRON/MINERALS CHEWABLE TAB CHEW SCH (09:18)
[2015-11-22] MEDS: NYSTATIN 100,000 U/GM PWD 15 GM BTL TOPICAL SCH ×2 (09:19→21:36)
[2015-11-22] MEDS: SODIUM CHLORIDE 0.9% FLUSH 5 ML FLUSH IVF SCH ×2 (09:19→21:34)
[2015-11-22] MEDS: ARTIFICIAL TEARS OPTH SOLN 15 ML BTL EACH EYE SCH ×3 (09:19→16:58)
[2015-11-22 12:00] VITALS: BP 151/88; PULSE 115; RESP 17; TEMP 96.3; O2SAT 96
[2015-11-22] MEDS: ONDANSETRON HCL 4 MG/2 ML VIAL IV PRN (12:00)
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
[2015-11-22 16:00] VITALS: BP 172/84; PULSE 96; RESP 18; TEMP 97; O2SAT 94
[2015-11-23] VITALS: BP 134/76; PULSE 93; RESP 20; TEMP 98; O2SAT 96
[2015-11-23] MEDS: ENOXAPARIN SODIUM 60 MG/0.6 ML SYRINGE SQ SCH ×2 (04:16→16:11)
[2015-11-23] MEDS: CHLORHEXIDINE GLUCONATE 2 % 1 PACK (2 CLOTHS) TOP SCH (04:19)
[2015-11-23 08:00] VITALS: BP 130/78; PULSE 68; RESP 18; TEMP 98.4; O2SAT 96
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
[2015-11-23] MEDS: POLYETHYLENE GLYCOL 17 GM PKG PO SCH (09:43)
[2015-11-23] MEDS: FAMOTIDINE 20 MG TAB PO SCH ×2 (09:44→21:11)
[2015-11-23] MEDS: HYDROmorphone HCL 4 MG TAB PO PRN ×2 (09:44→16:11)
[2015-11-23] MEDS: DOCUSATE SODIUM 50 MG/SENNA 8.6 MG TAB PO SCH ×2 (09:44→21:11)
[2015-11-23] MEDS: MULTIVITAMINS/IRON/MINERALS CHEWABLE TAB CHEW SCH (09:44)
[2015-11-23] MEDS: SODIUM CHLORIDE 0.9% FLUSH 5 ML FLUSH IVF SCH ×2 (09:45→21:11)
[2015-11-23] MEDS: NYSTATIN 100,000 U/GM PWD 15 GM BTL TOPICAL SCH ×2 (09:45→21:12)
[2015-11-23] MEDS: ARTIFICIAL TEARS OPTH SOLN 15 ML BTL EACH EYE SCH ×3 (09:45→18:00)
[2015-11-23 12:00] VITALS: BP 131/68; PULSE 101; RESP 20; TEMP 95.8; O2SAT 97
[2015-11-23 16:00] VITALS: BP_SYST 131; BP_SYST 136; BP_DIAS 68; BP_DIAS 81; PULSE 101; PULSE 89; RESP 20; TEMP 95.8; TEMP 96.2; O2SAT 96; O2SAT 97
[2015-11-23 20:00] VITALS: BP 157/85; PULSE 97; RESP 24; TEMP 96.7; O2SAT 94
[2015-11-24 00:12] VITALS: BP 127/81; PULSE 93; RESP 20; TEMP 97.3; O2SAT 95
[2015-11-24] MEDS: HYDROmorphone HCL 4 MG TAB PO PRN ×3 (02:36→16:25)
[2015-11-24] MEDS: CHLORHEXIDINE GLUCONATE 2 % 1 PACK (2 CLOTHS) TOP SCH ×2 (04:00→22:14)
[2015-11-24] MEDS: ENOXAPARIN SODIUM 60 MG/0.6 ML SYRINGE SQ SCH ×3 (04:00→16:26)
[2015-11-24 08:00] VITALS: BP 138/76; PULSE 81; RESP 20; TEMP 96.7; O2SAT 94
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
[2015-11-24] MEDS: POLYETHYLENE GLYCOL 17 GM PKG PO SCH (09:27)
[2015-11-24] MEDS: DOCUSATE SODIUM 50 MG/SENNA 8.6 MG TAB PO SCH ×2 (09:27→20:48)
[2015-11-24] MEDS: FAMOTIDINE 20 MG TAB PO SCH ×2 (09:27→20:48)
[2015-11-24] MEDS: MULTIVITAMINS/IRON/MINERALS CHEWABLE TAB CHEW SCH (09:27)
[2015-11-24] MEDS: SODIUM CHLORIDE 0.9% FLUSH 5 ML FLUSH IVF SCH ×2 (09:28→20:52)
[2015-11-24] MEDS: ARTIFICIAL TEARS OPTH SOLN 15 ML BTL EACH EYE SCH ×3 (09:28→16:26)
[2015-11-24] MEDS: NYSTATIN 100,000 U/GM PWD 15 GM BTL TOPICAL SCH ×2 (09:29→20:52)
[2015-11-24 12:00] VITALS: BP 135/68; PULSE 113; RESP 22; TEMP 98.2; O2SAT 94
[2015-11-24] MEDS: ONDANSETRON HCL 4 MG/2 ML VIAL IV PRN (12:05)
[2015-11-24 16:00] VITALS: BP 122/72; PULSE 91; RESP 20; TEMP 97.4; O2SAT 93
[2015-11-24 20:00] VITALS: BP 142/86; PULSE 92; RESP 18; TEMP 97.4; O2SAT 94
[2015-11-25] VITALS: BP 127/77; PULSE 104; RESP 20; TEMP 98.6; O2SAT 96
[2015-11-25] MEDS: ENOXAPARIN SODIUM 60 MG/0.6 ML SYRINGE SQ SCH ×2 (06:40→15:50)
[2015-11-25 08:00] VITALS: BP 143/77; PULSE 90; RESP 20; TEMP 96; O2SAT 93
[2015-11-25] MEDS: FAMOTIDINE 20 MG TAB PO SCH ×2 (08:18→21:45)
[2015-11-25] MEDS: MULTIVITAMINS/IRON/MINERALS CHEWABLE TAB CHEW SCH (08:18)
[2015-11-25] MEDS: DOCUSATE SODIUM 50 MG/SENNA 8.6 MG TAB PO SCH ×2 (08:18→21:46)
[2015-11-25] MEDS: HYDROmorphone HCL 4 MG TAB PO PRN ×3 (08:18→14:30)
[2015-11-25] MEDS: POLYETHYLENE GLYCOL 17 GM PKG PO SCH (08:18)
[2015-11-25] MEDS: ARTIFICIAL TEARS OPTH SOLN 15 ML BTL EACH EYE SCH ×3 (08:19→15:51)
[2015-11-25] MEDS: NYSTATIN 100,000 U/GM PWD 15 GM BTL TOPICAL SCH ×2 (08:19→21:49)
[2015-11-25] MEDS: SODIUM CHLORIDE 0.9% FLUSH 5 ML FLUSH IVF SCH ×2 (08:20→22:24)
[2015-11-25 12:00] VITALS: BP 165/78; PULSE 105; RESP 22; TEMP 97.9; O2SAT 95
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
[2015-11-25 16:00] VITALS: BP 120/72; PULSE 94; RESP 20; TEMP 97.4; O2SAT 99
[2015-11-25 20:00] VITALS: BP 140/81; PULSE 96; RESP 18; TEMP 97.6; O2SAT 95
[2015-11-26] VITALS: BP 139/86; PULSE 94; RESP 16; TEMP 98.6; O2SAT 96
[2015-11-26] MEDS: CHLORHEXIDINE GLUCONATE 2 % 1 PACK (2 CLOTHS) TOP SCH ×2 (04:00→20:25)
[2015-11-26] MEDS: ENOXAPARIN SODIUM 60 MG/0.6 ML SYRINGE SQ SCH ×2 (05:56→14:36)
[2015-11-26 08:00] VITALS: BP 142/77; PULSE 85; RESP 20; TEMP 98.5; O2SAT 95
[2015-11-26] MEDS: MULTIVITAMINS/IRON/MINERALS CHEWABLE TAB CHEW SCH (09:01)
[2015-11-26] MEDS: FAMOTIDINE 20 MG TAB PO SCH ×2 (09:02→20:22)
[2015-11-26] MEDS: SODIUM CHLORIDE 0.9% FLUSH 5 ML FLUSH IVF SCH ×2 (09:02→20:22)
[2015-11-26] MEDS: HYDROmorphone HCL 4 MG TAB PO PRN ×3 (09:02→20:24)
[2015-11-26] MEDS: POLYETHYLENE GLYCOL 17 GM PKG PO SCH (09:02)
[2015-11-26] MEDS: DOCUSATE SODIUM 50 MG/SENNA 8.6 MG TAB PO SCH ×2 (09:02→20:22)
[2015-11-26] MEDS: NYSTATIN 100,000 U/GM PWD 15 GM BTL TOPICAL SCH ×2 (09:03→20:23)
[2015-11-26] MEDS: ARTIFICIAL TEARS OPTH SOLN 15 ML BTL EACH EYE SCH ×3 (09:03→18:00)
[2015-11-26 12:00] VITALS: BP 138/77; PULSE 88; RESP 19; TEMP 98.4; O2SAT 96
--- NOTE | 2015-11-26 14:37 | PD.ORT.PN ---
Subjective Post Op Day #: 46 Pain Scale: 2 Subjective Remarks The patient is awake and alert and answers questions appropriately. His family is at the bedside. He has no new complaint. Objective Vitals Vital Signs Date Time Temp Pulse Resp B/P Pulse Ox O2 Delivery O2 Flow Rate FiO2 11/26/15 12:00 98.4 88 19 138/77 96 11/26/15 08:00 98.5 85 20 142/77 95 11/26/15 00:00 98.6 94 16 139/86 96 11/25/15 20:00 97.6 96 18 140/81 95 11/25/15 16:50 20 11/25/15 16:00 97.4 94 20 120/72 99 I/O 11/25/15 11/25/15 11/25/15 11/26/15 11/26/15 11/26/15 07:00 15:00 23:00 07:00 15:00 23:00 Intake Total 240 ml 840 ml 240 ml 240 ml Output Total 600 ml 500 ml Balance 240 ml 840 ml -360 ml -260 ml Intake Oral 240 ml 840 ml 240 ml 240 ml IV Total 0 ml Output Urine Total 600 ml 500 ml # Voids 1 3 # Bowel Movements 0 1 0 Objective Remarks LLE: morbidly obese. +cap refill. splint intact. clean and dry. splint taken down and incision visualized. clean and dry. healed well. no erythema or drainage. anterior leg wounds granulated in well and healing appropriately Assessment & Plan Ortho Post Op Day #: 47 Problem List: Assessment and Plan 1) Left Distal femur Fx - POD 47 s/p ORIF -NWB -[employer] to assist with re-wrapping splint 2) Spinal Fx - Dr Herbert to manage 3) Left Tibia wounds -trauma team to manage dressings -wet to dry dressings Uli Thornton MD Nov 26, 2015 14:37
[2015-11-26 20:00] VITALS: BP 137/85; PULSE 83; RESP 21; TEMP 97.1; O2SAT 96
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
[2015-11-27 00:19] VITALS: BP 164/74; PULSE 94; RESP 18; TEMP 96.9; O2SAT 98
[2015-11-27] MEDS: ENOXAPARIN SODIUM 60 MG/0.6 ML SYRINGE SQ SCH ×2 (02:55→15:21)
[2015-11-27 08:20] VITALS: BP 139/80; PULSE 98; RESP 20; TEMP 98.8; O2SAT 95
[2015-11-27] MEDS: MULTIVITAMINS/IRON/MINERALS CHEWABLE TAB CHEW SCH (09:36)
[2015-11-27] MEDS: FAMOTIDINE 20 MG TAB PO SCH ×2 (09:36→19:55)
[2015-11-27] MEDS: DOCUSATE SODIUM 50 MG/SENNA 8.6 MG TAB PO SCH ×2 (09:36→19:55)
[2015-11-27] MEDS: POLYETHYLENE GLYCOL 17 GM PKG PO SCH (09:36)
[2015-11-27] MEDS: SODIUM CHLORIDE 0.9% FLUSH 5 ML FLUSH IVF SCH ×2 (09:37→19:55)
[2015-11-27] MEDS: ARTIFICIAL TEARS OPTH SOLN 15 ML BTL EACH EYE SCH ×3 (09:37→17:24)
[2015-11-27] MEDS: NYSTATIN 100,000 U/GM PWD 15 GM BTL TOPICAL SCH ×2 (09:37→19:55)
[2015-11-27 12:04] VITALS: BP 132/76; PULSE 78; RESP 16; TEMP 97.8; O2SAT 95
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
[2015-11-27 16:10] VITALS: BP 140/68; PULSE 93; RESP 19; TEMP 97.9; O2SAT 95
[2015-11-27] MEDS: HYDROmorphone HCL 4 MG TAB PO PRN (17:24)
[2015-11-27] MEDS: CHLORHEXIDINE GLUCONATE 2 % 1 PACK (2 CLOTHS) TOP SCH (19:55)
[2015-11-27 20:00] VITALS: BP 138/89; PULSE 88; RESP 20; TEMP 98.2; O2SAT 97
[2015-11-28] VITALS: BP 128/6; PULSE 80; RESP 20; TEMP 97.6; O2SAT 98
[2015-11-28] MEDS: ENOXAPARIN SODIUM 60 MG/0.6 ML SYRINGE SQ SCH ×2 (04:44→16:37)
[2015-11-28 08:00] VITALS: BP 146/85; PULSE 87; RESP 20; TEMP 97.6; O2SAT 94
[2015-11-28] MEDS: MULTIVITAMINS/IRON/MINERALS CHEWABLE TAB CHEW SCH (09:05)
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
[2015-11-28] MEDS: POLYETHYLENE GLYCOL 17 GM PKG PO SCH (09:06)
[2015-11-28] MEDS: DOCUSATE SODIUM 50 MG/SENNA 8.6 MG TAB PO SCH ×2 (09:06→20:11)
[2015-11-28] MEDS: FAMOTIDINE 20 MG TAB PO SCH ×2 (09:06→20:11)
[2015-11-28] MEDS: NYSTATIN 100,000 U/GM PWD 15 GM BTL TOPICAL SCH ×2 (09:06→20:12)
[2015-11-28] MEDS: HYDROmorphone HCL 4 MG TAB PO PRN ×4 (09:06→23:19)
[2015-11-28] MEDS: SODIUM CHLORIDE 0.9% FLUSH 5 ML FLUSH IVF SCH ×2 (09:07→20:11)
[2015-11-28] MEDS: ARTIFICIAL TEARS OPTH SOLN 15 ML BTL EACH EYE SCH ×3 (09:07→16:37)
[2015-11-28 12:00] VITALS: BP 169/93; PULSE 111; RESP 22; TEMP 96.9; O2SAT 94
--- NOTE | 2015-11-28 14:44 | PD.PLAS.PN ---
Subjective Remarks Patient would like to discuss scheduling surgery for repair of the extensor tendon of the right fourth finger as well as removal of foreign body from the right fourth finger. Objective Vital Signs Date Time Temp Pulse Resp B/P Pulse Ox O2 Delivery O2 Flow Rate FiO2 11/28/15 12:00 96.9 111 22 169/93 94 11/28/15 08:00 97.6 87 20 146/85 94 11/28/15 00:00 97.6 80 20 128/6 98 11/27/15 20:00 98.2 88 20 138/89 97 11/27/15 16:10 97.9 93 19 140/68 95 I/O 11/27/15 11/27/15 11/27/15 11/28/15 11/28/15 11/28/15 07:00 15:00 23:00 07:00 15:00 23:00 Intake Total 360 ml 480 ml 480 ml 480 ml 0 ml Output Total 480 ml 1100 ml 600 ml 850 ml Balance -120 ml -620 ml -120 ml -370 ml 0 ml Intake Oral 360 ml 480 ml 480 ml 480 ml IV Total 0 ml Output Urine Total 480 ml 1100 ml 600 ml 850 ml # Bowel Movements 0 0 0 Exam Findings No change to physical exam. Assessment and Plan Diagnosis: (1) Extensor tendon laceration, hand, open wound Plan: The patient would like to proceed with surgery for repair of the extensor tendon of the right fourth finger as well as removal of foreign body of the right fourth finger. The procedure was reviewed and questions were answered. The patient has already signed a consent. Will determine when surgery will be scheduled and order the NPO accordingly. Will contact RN when scheduled. Constance Mark Nov 28, 2015 14:43
[2015-11-28 16:00] VITALS: BP 130/81; PULSE 110; RESP 20; TEMP 97.4; O2SAT 95
[2015-11-28] MEDS: CHLORHEXIDINE GLUCONATE 2 % 1 PACK (2 CLOTHS) TOP SCH (20:12)
[2015-11-28 20:37] VITALS: BP 175/85; PULSE 79; RESP 20; TEMP 96.7; O2SAT 96
[2015-11-29 00:31] VITALS: BP 132/88; PULSE 90; RESP 20; TEMP 97.5; O2SAT 98
[2015-11-29] MEDS: ENOXAPARIN SODIUM 60 MG/0.6 ML SYRINGE SQ SCH ×2 (04:00→16:31)
[2015-11-29 08:00] VITALS: BP 142/89; PULSE 96; RESP 20; TEMP 95.8; O2SAT 97
[2015-11-29] MEDS: POLYETHYLENE GLYCOL 17 GM PKG PO SCH (09:09)
[2015-11-29] MEDS: HYDROmorphone HCL 4 MG TAB PO PRN ×3 (09:09→20:13)
[2015-11-29] MEDS: FAMOTIDINE 20 MG TAB PO SCH ×2 (09:09→20:13)
[2015-11-29] MEDS: MULTIVITAMINS/IRON/MINERALS CHEWABLE TAB CHEW SCH (09:09)
[2015-11-29] MEDS: SODIUM CHLORIDE 0.9% FLUSH 5 ML FLUSH IVF SCH ×2 (09:10→20:14)
[2015-11-29] MEDS: NYSTATIN 100,000 U/GM PWD 15 GM BTL TOPICAL SCH ×2 (09:10→20:14)
[2015-11-29] MEDS: ARTIFICIAL TEARS OPTH SOLN 15 ML BTL EACH EYE SCH ×3 (09:10→16:31)
[2015-11-29] MEDS: DOCUSATE SODIUM 50 MG/SENNA 8.6 MG TAB PO SCH ×2 (09:10→20:13)
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
[2015-11-29 12:00] VITALS: BP 159/92; PULSE 96; RESP 20; TEMP 97.2; O2SAT 94
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
[2015-11-29 16:00] VITALS: BP 128/84; PULSE 87; RESP 20; TEMP 97; O2SAT 95
[2015-11-29 20:00] VITALS: BP 143/80; PULSE 83; RESP 20; TEMP 97.6; O2SAT 95
[2015-11-30] VITALS: BP 133/89; PULSE 104; RESP 20; TEMP 97.2; O2SAT 93
[2015-11-30] MEDS: ENOXAPARIN SODIUM 60 MG/0.6 ML SYRINGE SQ SCH ×2 (03:30→17:57)
[2015-11-30] MEDS: CHLORHEXIDINE GLUCONATE 2 % 1 PACK (2 CLOTHS) TOP SCH (03:30)
[2015-11-30] MEDS: HYDROmorphone HCL 4 MG TAB PO PRN ×3 (03:31→17:58)
[2015-11-30 08:00] VITALS: BP 129/86; PULSE 96; RESP 21; TEMP 96.8; O2SAT 95
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
[2015-11-30] MEDS: POLYETHYLENE GLYCOL 17 GM PKG PO SCH (09:00)
[2015-11-30] MEDS: DOCUSATE SODIUM 50 MG/SENNA 8.6 MG TAB PO SCH ×2 (11:14→20:45)
[2015-11-30] MEDS: MULTIVITAMINS/IRON/MINERALS CHEWABLE TAB CHEW SCH (11:15)
[2015-11-30] MEDS: FAMOTIDINE 20 MG TAB PO SCH ×2 (11:15→20:45)
[2015-11-30] MEDS: SODIUM CHLORIDE 0.9% FLUSH 5 ML FLUSH IVF SCH ×2 (11:17→20:45)
[2015-11-30] MEDS: ARTIFICIAL TEARS OPTH SOLN 15 ML BTL EACH EYE SCH ×3 (11:17→18:00)
[2015-11-30] MEDS: NYSTATIN 100,000 U/GM PWD 15 GM BTL TOPICAL SCH ×2 (11:17→20:46)
[2015-11-30 12:00] VITALS: BP 125/82; PULSE 94; RESP 19; TEMP 98.1; O2SAT 95
[2015-11-30 16:00] VITALS: BP 132/76; PULSE 96; RESP 20; TEMP 97.2; O2SAT 94
[2015-11-30 20:00] VITALS: BP 134/81; PULSE 83; RESP 20; TEMP 97.7; O2SAT 93
[2015-11-30 23:20] VITALS: BP 148/82; PULSE 108; RESP 20; TEMP 97.9; O2SAT 94
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
[2015-12-01] MEDS: CHLORHEXIDINE GLUCONATE 2 % 1 PACK (2 CLOTHS) TOP SCH (03:11)
[2015-12-01] MEDS: ENOXAPARIN SODIUM 60 MG/0.6 ML SYRINGE SQ SCH ×2 (03:11→15:14)
[2015-12-01 08:00] VITALS: BP 161/75; PULSE 93; RESP 16; TEMP 97; O2SAT 95
[2015-12-01] MEDS: POLYETHYLENE GLYCOL 17 GM PKG PO SCH (09:00)
[2015-12-01] MEDS: FAMOTIDINE 20 MG TAB PO SCH ×2 (10:07→21:04)
[2015-12-01] MEDS: SODIUM CHLORIDE 0.9% FLUSH 5 ML FLUSH IVF SCH ×2 (10:07→21:04)
[2015-12-01] MEDS: MULTIVITAMINS/IRON/MINERALS CHEWABLE TAB CHEW SCH (10:07)
[2015-12-01] MEDS: NYSTATIN 100,000 U/GM PWD 15 GM BTL TOPICAL SCH ×2 (10:08→21:06)
[2015-12-01] MEDS: ARTIFICIAL TEARS OPTH SOLN 15 ML BTL EACH EYE SCH ×3 (10:08→18:17)
[2015-12-01] MEDS: DOCUSATE SODIUM 50 MG/SENNA 8.6 MG TAB PO SCH ×2 (10:08→21:05)
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
[2015-12-01 12:00] VITALS: BP 144/80; PULSE 93; RESP 17; TEMP 98.2; O2SAT 97
[2015-12-01] MEDS: HYDROmorphone HCL 4 MG TAB PO PRN ×2 (15:13→21:04)
[2015-12-01 16:00] VITALS: BP 145/78; PULSE 94; RESP 16; TEMP 98.2; O2SAT 94
[2015-12-01 20:00] VITALS: BP 135/79; PULSE 97; RESP 20; TEMP 97.7; O2SAT 95
[2015-12-02 00:01] VITALS: BP 143/83; PULSE 96; RESP 20; TEMP 97.7; O2SAT 95
[2015-12-02] MEDS: CHLORHEXIDINE GLUCONATE 2 % 1 PACK (2 CLOTHS) TOP SCH (04:00)
[2015-12-02] MEDS: ENOXAPARIN SODIUM 60 MG/0.6 ML SYRINGE SQ SCH ×2 (04:11→17:51)
[2015-12-02 08:00] VITALS: BP 138/82; PULSE 98; RESP 20; TEMP 97.4; O2SAT 96
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
[2015-12-02] MEDS: POLYETHYLENE GLYCOL 17 GM PKG PO SCH (09:00)
[2015-12-02] MEDS: FAMOTIDINE 20 MG TAB PO SCH ×2 (10:08→20:59)
[2015-12-02] MEDS: MULTIVITAMINS/IRON/MINERALS CHEWABLE TAB CHEW SCH (10:08)
[2015-12-02] MEDS: SODIUM CHLORIDE 0.9% FLUSH 5 ML FLUSH IVF SCH ×2 (10:09→21:00)
[2015-12-02] MEDS: DOCUSATE SODIUM 50 MG/SENNA 8.6 MG TAB PO SCH ×2 (10:09→20:59)
[2015-12-02] MEDS: NYSTATIN 100,000 U/GM PWD 15 GM BTL TOPICAL SCH ×2 (10:10→21:00)
[2015-12-02] MEDS: HYDROmorphone HCL 4 MG TAB PO PRN ×2 (10:10→21:00)
[2015-12-02] MEDS: ARTIFICIAL TEARS OPTH SOLN 15 ML BTL EACH EYE SCH ×3 (10:10→17:52)
[2015-12-02 16:10] VITALS: BP 132/78; PULSE 78; RESP 19; TEMP 98.4; O2SAT 96
[2015-12-02 20:04] VITALS: BP 145/86; PULSE 102; RESP 20; TEMP 97.4; O2SAT 95
[2015-12-02 23:49] VITALS: BP 143/88; PULSE 93; RESP 18; TEMP 97.6; O2SAT 95
[2015-12-03] MEDS: CHLORHEXIDINE GLUCONATE 2 % 1 PACK (2 CLOTHS) TOP SCH (04:00)
[2015-12-03] MEDS: ENOXAPARIN SODIUM 60 MG/0.6 ML SYRINGE SQ SCH ×2 (04:24→16:01)
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
[2015-12-03 08:00] VITALS: BP 129/97; PULSE 82; RESP 12; TEMP 97.5; O2SAT 97
[2015-12-03] MEDS: MULTIVITAMINS/IRON/MINERALS CHEWABLE TAB CHEW SCH (09:22)
[2015-12-03] MEDS: FAMOTIDINE 20 MG TAB PO SCH ×2 (09:22→20:15)
[2015-12-03] MEDS: DOCUSATE SODIUM 50 MG/SENNA 8.6 MG TAB PO SCH ×2 (09:22→20:15)
[2015-12-03] MEDS: POLYETHYLENE GLYCOL 17 GM PKG PO SCH (09:22)
[2015-12-03] MEDS: HYDROmorphone HCL 4 MG TAB PO PRN ×3 (09:22→23:58)
[2015-12-03] MEDS: NYSTATIN 100,000 U/GM PWD 15 GM BTL TOPICAL SCH ×2 (09:23→20:15)
[2015-12-03] MEDS: SODIUM CHLORIDE 0.9% FLUSH 5 ML FLUSH IVF SCH ×2 (09:23→20:15)
[2015-12-03] MEDS: ARTIFICIAL TEARS OPTH SOLN 15 ML BTL EACH EYE SCH ×3 (09:23→16:01)
[2015-12-03 12:00] VITALS: BP 139/89; PULSE 105; RESP 12; TEMP 95.6; O2SAT 96
[2015-12-03 16:00] VITALS: BP_SYST 142; BP_SYST 158; BP_DIAS 100; BP_DIAS 81; PULSE 115; PULSE 78; RESP 12; RESP 20; TEMP 96.8; TEMP 97; O2SAT 96; O2SAT 99
[2015-12-03 20:00] VITALS: BP 153/80; PULSE 93; RESP 21; TEMP 97.7; O2SAT 95
[2015-12-04] VITALS: BP 143/82; PULSE 92; RESP 20; TEMP 97.5; O2SAT 94
[2015-12-04] MEDS: CHLORHEXIDINE GLUCONATE 2 % 1 PACK (2 CLOTHS) TOP SCH (03:49)
[2015-12-04] MEDS: ENOXAPARIN SODIUM 60 MG/0.6 ML SYRINGE SQ SCH ×2 (03:49→16:08)
[2015-12-04 08:00] VITALS: BP 139/83; PULSE 97; RESP 20; TEMP 97.4; O2SAT 96
[2015-12-04] MEDS: MULTIVITAMINS/IRON/MINERALS CHEWABLE TAB CHEW SCH (08:11)
[2015-12-04] MEDS: NYSTATIN 100,000 U/GM PWD 15 GM BTL TOPICAL SCH ×2 (08:11→21:51)
[2015-12-04] MEDS: SODIUM CHLORIDE 0.9% FLUSH 5 ML FLUSH IVF SCH ×2 (08:11→21:50)
[2015-12-04] MEDS: FAMOTIDINE 20 MG TAB PO SCH ×2 (08:11→21:49)
[2015-12-04] MEDS: HYDROmorphone HCL 4 MG TAB PO PRN ×2 (08:11→16:08)
[2015-12-04] MEDS: DOCUSATE SODIUM 50 MG/SENNA 8.6 MG TAB PO SCH ×2 (08:11→21:49)
[2015-12-04] MEDS: ARTIFICIAL TEARS OPTH SOLN 15 ML BTL EACH EYE SCH ×3 (08:11→16:08)
[2015-12-04] MEDS: POLYETHYLENE GLYCOL 17 GM PKG PO SCH (08:12)
[2015-12-04 12:00] VITALS: BP 138/76; PULSE 97; RESP 20; TEMP 96.7; O2SAT 96
[2015-12-04 16:00] VITALS: BP 148/77; PULSE 100; RESP 20; TEMP 95.8; O2SAT 97
[2015-12-04 20:00] VITALS: BP 152/88; PULSE 98; RESP 19; TEMP 97.6; O2SAT 95
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
[2015-12-05] VITALS: BP 142/86; PULSE 103; RESP 18; TEMP 98; O2SAT 97
[2015-12-05] MEDS: HYDROmorphone HCL 4 MG TAB PO PRN ×3 (03:46→17:52)
[2015-12-05] MEDS: ENOXAPARIN SODIUM 60 MG/0.6 ML SYRINGE SQ SCH ×2 (03:46→14:56)
[2015-12-05] MEDS: CHLORHEXIDINE GLUCONATE 2 % 1 PACK (2 CLOTHS) TOP SCH ×2 (03:46→20:28)
[2015-12-05 08:00] VITALS: BP 143/89; PULSE 84; RESP 16; TEMP 98.3; O2SAT 97
[2015-12-05] MEDS: DOCUSATE SODIUM 50 MG/SENNA 8.6 MG TAB PO SCH ×2 (08:36→20:28)
[2015-12-05] MEDS: ARTIFICIAL TEARS OPTH SOLN 15 ML BTL EACH EYE SCH ×3 (08:36→17:52)
[2015-12-05] MEDS: POLYETHYLENE GLYCOL 17 GM PKG PO SCH (08:36)
[2015-12-05] MEDS: SODIUM CHLORIDE 0.9% FLUSH 5 ML FLUSH IVF SCH ×2 (08:36→20:27)
[2015-12-05] MEDS: MULTIVITAMINS/IRON/MINERALS CHEWABLE TAB CHEW SCH (08:36)
[2015-12-05] MEDS: FAMOTIDINE 20 MG TAB PO SCH ×2 (08:36→20:28)
[2015-12-05] MEDS: NYSTATIN 100,000 U/GM PWD 15 GM BTL TOPICAL SCH ×2 (08:37→20:28)
[2015-12-05 09:25] VITALS: O2SAT 96
[2015-12-05 12:00] VITALS: BP 135/94; PULSE 94; RESP 19; TEMP 96.9; O2SAT 95
[2015-12-05 16:00] VITALS: BP 140/85; PULSE 122; RESP 17; TEMP 96.8; O2SAT 96
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
[2015-12-05 20:00] VITALS: BP 131/77; PULSE 111; RESP 20; TEMP 97.8; O2SAT 95
[2015-12-06] VITALS: BP 132/75; PULSE 113; RESP 20; TEMP 97.6; O2SAT 98
[2015-12-06] MEDS: ENOXAPARIN SODIUM 60 MG/0.6 ML SYRINGE SQ SCH ×2 (05:31→18:11)
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
[2015-12-06 08:00] VITALS: BP 124/61; PULSE 79; RESP 20; TEMP 96.1; O2SAT 95
[2015-12-06] MEDS: SODIUM CHLORIDE 0.9% FLUSH 5 ML FLUSH IVF SCH (09:00)
[2015-12-06] MEDS: POLYETHYLENE GLYCOL 17 GM PKG PO SCH (09:00)
[2015-12-06 09:09] VITALS: O2SAT 98
[2015-12-06] MEDS: FAMOTIDINE 20 MG TAB PO SCH ×2 (09:28→21:09)
[2015-12-06] MEDS: MULTIVITAMINS/IRON/MINERALS CHEWABLE TAB CHEW SCH (09:28)
[2015-12-06] MEDS: HYDROmorphone HCL 4 MG TAB PO PRN ×3 (09:28→23:36)
[2015-12-06] MEDS: DOCUSATE SODIUM 50 MG/SENNA 8.6 MG TAB PO SCH ×2 (09:28→21:08)
[2015-12-06] MEDS: ARTIFICIAL TEARS OPTH SOLN 15 ML BTL EACH EYE SCH ×3 (09:29→18:11)
[2015-12-06] MEDS: NYSTATIN 100,000 U/GM PWD 15 GM BTL TOPICAL SCH ×2 (09:30→21:12)
--- NOTE | 2015-12-06 11:01 | RADRPT ---
EXAM DATE/TIME: 12/06/2015 10:09 [place] COMPARISON: KNEE LEFT LTD (1 OR 2VWS), October 20, 2015, 9:04. INDICATIONS : Evaluate left femur fracture. MEDICAL HISTORY : Venous statsis, lower extemity. Chronic back pain. Substance use. MRSA. SURGICAL HISTORY : ORIF left femur. ENCOUNTER: Subsequent ACUITY: 2 months PAIN SCORE: 10/10 LOCATION: Left distal femur. FINDINGS: Four view examination of the left knee demonstrates fracture of the distal femur with late and screws noted. There is some slight periosteal reaction, suggesting healing. Fracture lines are still eviden t. Slight lucency along the undersurface of the plate laterally. CONCLUSION: Internal fixation of distal femur with fracture line still evident. There are signs of minimal healin g. There is some minimal lucency along the plate laterally could be related to loosening. John Mcdonald MD on December 06, 2015 at 10:55 Board Certified Radiologist. This report was verified electronically.
[2015-12-06 12:00] VITALS: BP 141/79; PULSE 85; RESP 20; TEMP 97.3; O2SAT 95
[2015-12-06 16:03] VITALS: BP 127/76; PULSE 96; RESP 19; TEMP 99.5; O2SAT 95
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
[2015-12-06 20:00] VITALS: BP 135/78; PULSE 96; RESP 20; TEMP 97.6; O2SAT 97
[2015-12-07] VITALS: BP 139/72; PULSE 96; RESP 20; TEMP 99.4; O2SAT 96
[2015-12-07] MEDS: ENOXAPARIN SODIUM 60 MG/0.6 ML SYRINGE SQ SCH ×2 (03:20→17:12)
[2015-12-07] MEDS: CHLORHEXIDINE GLUCONATE 2 % 1 PACK (2 CLOTHS) TOP SCH (03:33)
[2015-12-07] MEDS: HYDROmorphone HCL 4 MG TAB PO PRN ×2 (06:04→20:49)
[2015-12-07 08:00] VITALS: BP 152/72; PULSE 78; RESP 16; TEMP 96.5; O2SAT 93
[2015-12-07] MEDS: POLYETHYLENE GLYCOL 17 GM PKG PO SCH (09:00)
[2015-12-07] MEDS: DOCUSATE SODIUM 50 MG/SENNA 8.6 MG TAB PO SCH ×2 (09:50→20:49)
[2015-12-07] MEDS: FAMOTIDINE 20 MG TAB PO SCH ×2 (09:50→20:49)
[2015-12-07] MEDS: MULTIVITAMINS/IRON/MINERALS CHEWABLE TAB CHEW SCH (09:50)
[2015-12-07] MEDS: ARTIFICIAL TEARS OPTH SOLN 15 ML BTL EACH EYE SCH ×3 (09:51→17:11)
[2015-12-07] MEDS: NYSTATIN 100,000 U/GM PWD 15 GM BTL TOPICAL SCH ×2 (09:51→20:51)
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
[2015-12-07 12:00] VITALS: BP 142/81; PULSE 95; RESP 15; TEMP 96.9; O2SAT 95
[2015-12-07 16:00] VITALS: BP 134/75; PULSE 102; RESP 20; TEMP 97.3; O2SAT 97
[2015-12-07 20:00] VITALS: BP 150/87; PULSE 106; RESP 20; TEMP 97.5; O2SAT 96
[2015-12-08] VITALS: BP 147/81; PULSE 102; RESP 20; TEMP 96.8; O2SAT 97
[2015-12-08] MEDS: CHLORHEXIDINE GLUCONATE 2 % 1 PACK (2 CLOTHS) TOP SCH (04:00)
[2015-12-08] MEDS: HYDROmorphone HCL 4 MG TAB PO PRN ×3 (05:54→18:20)
[2015-12-08] MEDS: ENOXAPARIN SODIUM 60 MG/0.6 ML SYRINGE SQ SCH ×2 (05:54→14:49)
[2015-12-08 08:00] VITALS: BP 130/80; PULSE 101; RESP 16; TEMP 97.1; O2SAT 97
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
[2015-12-08] MEDS: POLYETHYLENE GLYCOL 17 GM PKG PO SCH (09:00)
[2015-12-08] MEDS: MULTIVITAMINS/IRON/MINERALS CHEWABLE TAB CHEW SCH (09:25)
[2015-12-08] MEDS: FAMOTIDINE 20 MG TAB PO SCH ×2 (09:26→21:32)
[2015-12-08] MEDS: DOCUSATE SODIUM 50 MG/SENNA 8.6 MG TAB PO SCH ×2 (09:26→21:00)
[2015-12-08] MEDS: ARTIFICIAL TEARS OPTH SOLN 15 ML BTL EACH EYE SCH (09:27)
[2015-12-08 12:00] VITALS: BP 120/59; PULSE 94; RESP 18; TEMP 96.8; O2SAT 92
[2015-12-08 16:00] VITALS: BP 132/79; PULSE 95; RESP 20; TEMP 97.1; O2SAT 96
[2015-12-08 20:00] VITALS: BP 143/79; PULSE 99; RESP 18; TEMP 98.6; O2SAT 98
[2015-12-08] MEDS: NYSTATIN 100,000 U/GM PWD 15 GM BTL TOPICAL SCH (21:00)
[2015-12-09] VITALS: BP 147/83; PULSE 94; RESP 19; TEMP 97.6; O2SAT 96
[2015-12-09] MEDS: CHLORHEXIDINE GLUCONATE 2 % 1 PACK (2 CLOTHS) TOP SCH ×2 (04:00→21:58)
[2015-12-09] MEDS: ENOXAPARIN SODIUM 60 MG/0.6 ML SYRINGE SQ SCH ×2 (05:17→14:30)
[2015-12-09 08:00] VITALS: BP 136/66; PULSE 90; RESP 18; TEMP 97; O2SAT 94
[2015-12-09] MEDS: POLYETHYLENE GLYCOL 17 GM PKG PO SCH (09:00)
[2015-12-09] MEDS: NYSTATIN 100,000 U/GM PWD 15 GM BTL TOPICAL SCH ×2 (09:00→20:22)
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
[2015-12-09] MEDS: DOCUSATE SODIUM 50 MG/SENNA 8.6 MG TAB PO SCH ×2 (10:17→20:21)
[2015-12-09] MEDS: MULTIVITAMINS/IRON/MINERALS CHEWABLE TAB CHEW SCH (10:17)
[2015-12-09] MEDS: FAMOTIDINE 20 MG TAB PO SCH ×2 (10:17→20:21)
[2015-12-09] MEDS: HYDROmorphone HCL 4 MG TAB PO PRN ×4 (10:24→23:17)
[2015-12-09 12:00] VITALS: BP_SYST 136; BP_SYST 140; BP_DIAS 66; BP_DIAS 79; PULSE 98; RESP 18; TEMP 97.2; TEMP 97.3; O2SAT 94; O2SAT 95
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
[2015-12-09] MEDS: ARTIFICIAL TEARS OPTH SOLN 15 ML BTL EACH EYE SCH ×3 (13:21→18:21)
[2015-12-09 16:00] VITALS: BP 140/79; PULSE 98; RESP 18; TEMP 97.2; O2SAT 95
[2015-12-09 20:00] VITALS: BP 162/77; PULSE 95; RESP 18; TEMP 98.6; O2SAT 95
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
[2015-12-10] VITALS: BP 165/82; PULSE 97; RESP 18; TEMP 98.1; O2SAT 96
[2015-12-10] MEDS: ENOXAPARIN SODIUM 60 MG/0.6 ML SYRINGE SQ SCH ×2 (02:43→16:37)
[2015-12-10 05:10] LABS: AUTOMATED NEUTROPHIL # 4.9 TH/MM3 (1.8-7.7); BASOPHIL % 0.4 % (0.0-2.0); EOSINOPHIL # 0.4 TH/MM3 (0-0.4); HEMATOCRIT 34.5 % (39.0-51.0); LYMPH % 19.8 % (9.0-44.0); LYMPHOCYTE # 1.4 TH/MM3 (1.0-4.8); MEAN CELL VOLUME 70.6 FL (80.0-100.0); MEAN CORPUSCULAR HEMOGLOBIN 22.8 PG (27.0-34.0); MEAN CORPUSCULAR HGB CONC 32.2 % (32.0-36.0); NEUT % 68.8 % (16.0-70.0); PLATELET COUNT 243 TH/MM3 (150-450); RED BLOOD COUNT 4.88 MIL/MM3 (4.50-5.90); WHITE BLOOD COUNT 7.1 TH/MM3 (4.0-11.0)
[2015-12-10] MEDS: HYDROmorphone HCL 4 MG TAB PO PRN ×3 (05:14→18:17)
[2015-12-10 05:27] LABS: BICARBONATE 30.6 MEQ/L (21.0-32.0); POTASSIUM 4.2 MEQ/L (3.5-5.1)
[2015-12-10 05:38] LABS: HEMO FLAGS AUTO DIFF
[2015-12-10 08:27] VITALS: BP 133/84; PULSE 90; RESP 20; TEMP 97.7; O2SAT 99
[2015-12-10] MEDS: DOCUSATE SODIUM 50 MG/SENNA 8.6 MG TAB PO SCH ×2 (08:51→19:52)
[2015-12-10] MEDS: FAMOTIDINE 20 MG TAB PO SCH ×2 (08:51→19:52)
[2015-12-10] MEDS: MULTIVITAMINS/IRON/MINERALS CHEWABLE TAB CHEW SCH (08:51)
[2015-12-10] MEDS: NYSTATIN 100,000 U/GM PWD 15 GM BTL TOPICAL SCH ×2 (08:53→19:53)
[2015-12-10] MEDS: POLYETHYLENE GLYCOL 17 GM PKG PO SCH (08:53)
[2015-12-10] MEDS: ARTIFICIAL TEARS OPTH SOLN 15 ML BTL EACH EYE SCH ×3 (08:53→16:39)
[2015-12-10 09:09] LABS: OVALOCYTES 1+ (NORMAL); SCAN/DIFF AUTO DIFF CONFIRMED
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
[2015-12-10 12:02] VITALS: BP 142/88; PULSE 95; RESP 18; TEMP 99.4; O2SAT 97
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
[2015-12-10 16:13] VITALS: BP 142/84; PULSE 86; RESP 18; TEMP 97; O2SAT 95
[2015-12-10 20:00] VITALS: BP 141/81; PULSE 102; RESP 20; TEMP 97.9; O2SAT 94
[2015-12-11] VITALS: BP 136/76; PULSE 100; RESP 20; TEMP 97.2; O2SAT 96
[2015-12-11] MEDS: ENOXAPARIN SODIUM 60 MG/0.6 ML SYRINGE SQ SCH ×2 (03:56→15:47)
[2015-12-11] MEDS: CHLORHEXIDINE GLUCONATE 2 % 1 PACK (2 CLOTHS) TOP SCH (03:57)
[2015-12-11 08:00] VITALS: BP 139/75; PULSE 95; RESP 18; TEMP 97.4; O2SAT 94
[2015-12-11] MEDS: NYSTATIN 100,000 U/GM PWD 15 GM BTL TOPICAL SCH ×2 (09:00→19:35)
[2015-12-11] MEDS: POLYETHYLENE GLYCOL 17 GM PKG PO SCH (09:00)
[2015-12-11] MEDS: DOCUSATE SODIUM 50 MG/SENNA 8.6 MG TAB PO SCH ×2 (09:37→19:35)
[2015-12-11] MEDS: FAMOTIDINE 20 MG TAB PO SCH ×2 (09:37→19:34)
[2015-12-11] MEDS: MULTIVITAMINS/IRON/MINERALS CHEWABLE TAB CHEW SCH (09:37)
[2015-12-11] MEDS: ARTIFICIAL TEARS OPTH SOLN 15 ML BTL EACH EYE SCH ×3 (09:38→17:24)
[2015-12-11 12:00] VITALS: BP 142/85; PULSE 102; RESP 19; TEMP 96.8; O2SAT 97
[2015-12-11] MEDS: HYDROmorphone HCL 4 MG TAB PO PRN ×2 (12:51→17:24)
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
[2015-12-11 16:00] VITALS: BP 145/78; PULSE 106; RESP 19; TEMP 96.5; O2SAT 95
[2015-12-11 20:00] VITALS: BP 140/74; PULSE 92; RESP 20; TEMP 97.4; O2SAT 95
[2015-12-12] VITALS: BP 140/74; PULSE 92; RESP 20; TEMP 97.4; O2SAT 95
[2015-12-12] MEDS: HYDROmorphone HCL 4 MG TAB PO PRN ×3 (00:11→20:51)
[2015-12-12] MEDS: ENOXAPARIN SODIUM 60 MG/0.6 ML SYRINGE SQ SCH ×2 (03:32→15:59)
[2015-12-12] MEDS: CHLORHEXIDINE GLUCONATE 2 % 1 PACK (2 CLOTHS) TOP SCH (03:43)
[2015-12-12] MEDS: POLYETHYLENE GLYCOL 17 GM PKG PO SCH (09:00)
[2015-12-12] MEDS: ARTIFICIAL TEARS OPTH SOLN 15 ML BTL EACH EYE SCH ×3 (09:00→16:00)
[2015-12-12] MEDS: NYSTATIN 100,000 U/GM PWD 15 GM BTL TOPICAL SCH ×2 (09:00→20:49)
[2015-12-12] MEDS: DOCUSATE SODIUM 50 MG/SENNA 8.6 MG TAB PO SCH ×2 (09:04→20:48)
[2015-12-12] MEDS: FAMOTIDINE 20 MG TAB PO SCH ×2 (09:04→20:48)
[2015-12-12] MEDS: MULTIVITAMINS/IRON/MINERALS CHEWABLE TAB CHEW SCH (09:04)
[2015-12-12 09:15] VITALS: BP 135/79; PULSE 64; RESP 20; TEMP 96.9; O2SAT 97
[2015-12-12 12:24] VITALS: BP 105/54; PULSE 101; RESP 19; TEMP 97.2; O2SAT 96
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
[2015-12-12 17:52] VITALS: BP 135/75; PULSE 103; RESP 19; TEMP 97.4; O2SAT 96
[2015-12-12 20:00] VITALS: BP 124/74; PULSE 112; RESP 18; TEMP 97.6; O2SAT 96
[2015-12-12 23:45] VITALS: BP 148/81; PULSE 108; RESP 18; TEMP 97.2; O2SAT 95
[2015-12-13] MEDS: CHLORHEXIDINE GLUCONATE 2 % 1 PACK (2 CLOTHS) TOP SCH (04:00)
[2015-12-13] MEDS: ENOXAPARIN SODIUM 60 MG/0.6 ML SYRINGE SQ SCH ×2 (06:05→15:32)
[2015-12-13] MEDS: ARTIFICIAL TEARS OPTH SOLN 15 ML BTL EACH EYE SCH ×3 (08:49→15:35)
[2015-12-13] MEDS: MULTIVITAMINS/IRON/MINERALS CHEWABLE TAB CHEW SCH (08:49)
[2015-12-13] MEDS: DOCUSATE SODIUM 50 MG/SENNA 8.6 MG TAB PO SCH ×2 (08:49→21:01)
[2015-12-13] MEDS: NYSTATIN 100,000 U/GM PWD 15 GM BTL TOPICAL SCH ×2 (08:49→21:02)
[2015-12-13] MEDS: FAMOTIDINE 20 MG TAB PO SCH ×2 (08:49→21:01)
[2015-12-13] MEDS: POLYETHYLENE GLYCOL 17 GM PKG PO SCH (08:49)
[2015-12-13 08:57] VITALS: BP 136/80; PULSE 95; RESP 20; TEMP 98.4; O2SAT 96
[2015-12-13 11:53] VITALS: BP 139/72; PULSE 93; RESP 18; TEMP 96.9; O2SAT 95
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
[2015-12-13 16:41] VITALS: BP 135/87; PULSE 98; RESP 19; TEMP 96.9; O2SAT 95
[2015-12-13] MEDS: HYDROmorphone HCL 4 MG TAB PO PRN ×2 (19:28→23:58)
[2015-12-14] VITALS: BP 138/76; PULSE 103; RESP 18; TEMP 96.7; O2SAT 97
[2015-12-14] MEDS: CHLORHEXIDINE GLUCONATE 2 % 1 PACK (2 CLOTHS) TOP SCH (04:00)
[2015-12-14] MEDS: ENOXAPARIN SODIUM 60 MG/0.6 ML SYRINGE SQ SCH ×2 (07:24→15:03)
[2015-12-14] MEDS: POLYETHYLENE GLYCOL 17 GM PKG PO SCH (09:00)
[2015-12-14] MEDS: DOCUSATE SODIUM 50 MG/SENNA 8.6 MG TAB PO SCH ×2 (09:00→21:27)
[2015-12-14] MEDS: NYSTATIN 100,000 U/GM PWD 15 GM BTL TOPICAL SCH ×2 (09:00→21:28)
[2015-12-14 09:01] VITALS: BP 139/64; PULSE 105; RESP 20; TEMP 97.9; O2SAT 95
[2015-12-14] MEDS: HYDROmorphone HCL 4 MG TAB PO PRN ×2 (11:23→16:53)
[2015-12-14] MEDS: MULTIVITAMINS/IRON/MINERALS CHEWABLE TAB CHEW SCH (11:23)
[2015-12-14] MEDS: FAMOTIDINE 20 MG TAB PO SCH ×2 (11:24→21:27)
[2015-12-14] MEDS: ARTIFICIAL TEARS OPTH SOLN 15 ML BTL EACH EYE SCH ×3 (11:25→15:03)
[2015-12-14 12:54] VITALS: BP 144/88; PULSE 95; RESP 19; TEMP 96.9; O2SAT 96
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
[2015-12-14 18:20] VITALS: BP 133/82; PULSE 114; RESP 20; TEMP 96.9; O2SAT 95
[2015-12-14 20:00] VITALS: BP 144/86; PULSE 112; RESP 17; TEMP 99.3; O2SAT 99
[2015-12-15] VITALS: BP 130/81; PULSE 104; RESP 17; TEMP 98.2; O2SAT 100
[2015-12-15] MEDS: HYDROmorphone HCL 4 MG TAB PO PRN ×2 (00:32→21:02)
[2015-12-15] MEDS: CHLORHEXIDINE GLUCONATE 2 % 1 PACK (2 CLOTHS) TOP SCH (04:00)
[2015-12-15] MEDS: ENOXAPARIN SODIUM 60 MG/0.6 ML SYRINGE SQ SCH ×2 (04:05→15:53)
[2015-12-15 08:00] VITALS: BP 149/84; PULSE 90; RESP 17; TEMP 96.1; O2SAT 95
[2015-12-15] MEDS: NYSTATIN 100,000 U/GM PWD 15 GM BTL TOPICAL SCH ×2 (09:00→21:04)
[2015-12-15] MEDS: DOCUSATE SODIUM 50 MG/SENNA 8.6 MG TAB PO SCH ×2 (09:58→20:57)
[2015-12-15] MEDS: ARTIFICIAL TEARS OPTH SOLN 15 ML BTL EACH EYE SCH ×3 (09:58→17:33)
[2015-12-15] MEDS: MULTIVITAMINS/IRON/MINERALS CHEWABLE TAB CHEW SCH (09:58)
[2015-12-15] MEDS: FAMOTIDINE 20 MG TAB PO SCH ×2 (09:58→20:57)
[2015-12-15 12:00] VITALS: BP 148/81; PULSE 97; RESP 17; TEMP 97.1; O2SAT 97
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
[2015-12-15 16:00] VITALS: BP 140/93; PULSE 105; RESP 18; TEMP 98.9; O2SAT 97
[2015-12-15 19:50] VITALS: BP 133/76; PULSE 98; RESP 20; TEMP 96.7; O2SAT 95
[2015-12-16] VITALS (7 sets, daily range): BP systolic 135–152; BP diastolic 73–85; PULSE 85–106; RESP 17–20; TEMP 96.1–97.9; O2SAT 21–96
[2015-12-16] MEDS: CHLORHEXIDINE GLUCONATE 2 % 1 PACK (2 CLOTHS) TOP SCH ×2 (04:00→21:27)
[2015-12-16] MEDS: ENOXAPARIN SODIUM 60 MG/0.6 ML SYRINGE SQ SCH ×2 (04:56→17:29)
[2015-12-16] MEDS: NYSTATIN 100,000 U/GM PWD 15 GM BTL TOPICAL SCH ×2 (09:48→21:00)
[2015-12-16] MEDS: FAMOTIDINE 20 MG TAB PO SCH ×2 (09:48→21:25)
[2015-12-16] MEDS: ARTIFICIAL TEARS OPTH SOLN 15 ML BTL EACH EYE SCH ×3 (09:48→17:29)
[2015-12-16] MEDS: MULTIVITAMINS/IRON/MINERALS CHEWABLE TAB CHEW SCH (09:48)
[2015-12-16] MEDS: DOCUSATE SODIUM 50 MG/SENNA 8.6 MG TAB PO SCH ×2 (09:48→21:25)
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
[2015-12-17] VITALS: BP 142/97; PULSE 106; RESP 18; TEMP 98.2; O2SAT 94
[2015-12-17] MEDS: HYDROmorphone HCL 4 MG TAB PO PRN ×2 (00:07→17:17)
[2015-12-17] MEDS: ENOXAPARIN SODIUM 60 MG/0.6 ML SYRINGE SQ SCH ×2 (03:40→17:17)
[2015-12-17 08:00] VITALS: BP 136/74; PULSE 103; RESP 20; TEMP 96.5; O2SAT 94
[2015-12-17] MEDS: MULTIVITAMINS/IRON/MINERALS CHEWABLE TAB CHEW SCH (08:43)
[2015-12-17] MEDS: NYSTATIN 100,000 U/GM PWD 15 GM BTL TOPICAL SCH ×2 (08:43→20:29)
[2015-12-17] MEDS: FAMOTIDINE 20 MG TAB PO SCH ×2 (08:43→20:28)
[2015-12-17] MEDS: DOCUSATE SODIUM 50 MG/SENNA 8.6 MG TAB PO SCH ×2 (08:43→20:28)
[2015-12-17] MEDS: ARTIFICIAL TEARS OPTH SOLN 15 ML BTL EACH EYE SCH ×3 (08:43→17:18)
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
[2015-12-17 12:00] VITALS: BP 130/72; PULSE 100; RESP 19; TEMP 96.8; O2SAT 94
[2015-12-17 16:00] VITALS: BP 134/77; PULSE 102; RESP 20; TEMP 97; O2SAT 94
[2015-12-17 20:00] VITALS: BP 155/90; PULSE 69; RESP 20; TEMP 96.6; O2SAT 97
[2015-12-18] VITALS: BP 148/84; PULSE 102; RESP 20; TEMP 98.4; O2SAT 95
[2015-12-18] MEDS: CHLORHEXIDINE GLUCONATE 2 % 1 PACK (2 CLOTHS) TOP SCH (04:00)
[2015-12-18] MEDS: ENOXAPARIN SODIUM 60 MG/0.6 ML SYRINGE SQ SCH ×2 (04:27→15:05)
[2015-12-18 08:00] VITALS: BP 134/80; PULSE 107; RESP 20; TEMP 96.9; O2SAT 96
[2015-12-18] MEDS: MULTIVITAMINS/IRON/MINERALS CHEWABLE TAB CHEW SCH (10:15)
[2015-12-18] MEDS: DOCUSATE SODIUM 50 MG/SENNA 8.6 MG TAB PO SCH ×2 (10:15→21:17)
[2015-12-18] MEDS: ARTIFICIAL TEARS OPTH SOLN 15 ML BTL EACH EYE SCH ×3 (10:16→16:46)
[2015-12-18] MEDS: NYSTATIN 100,000 U/GM PWD 15 GM BTL TOPICAL SCH ×2 (10:16→21:17)
[2015-12-18] MEDS: FAMOTIDINE 20 MG TAB PO SCH ×2 (10:16→21:17)
[2015-12-18 12:00] VITALS: BP 132/80; PULSE 103; RESP 19; TEMP 97; O2SAT 95
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
[2015-12-18] MEDS: HYDROmorphone HCL 4 MG TAB PO PRN ×2 (15:04→18:48)
[2015-12-18 16:00] VITALS: BP 134/78; PULSE 102; RESP 20; TEMP 97; O2SAT 96
[2015-12-18 20:00] VITALS: BP 141/81; PULSE 109; RESP 20; TEMP 97.4; O2SAT 97
[2015-12-19] VITALS: BP 137/87; PULSE 117; RESP 20; TEMP 99.1; O2SAT 96
[2015-12-19] MEDS: HYDROmorphone HCL 4 MG TAB PO PRN ×2 (00:39→16:02)
[2015-12-19] MEDS: CHLORHEXIDINE GLUCONATE 2 % 1 PACK (2 CLOTHS) TOP SCH (04:00)
[2015-12-19] MEDS: ENOXAPARIN SODIUM 60 MG/0.6 ML SYRINGE SQ SCH ×2 (04:51→16:02)
[2015-12-19 08:00] VITALS: BP 130/76; PULSE 103; RESP 17; TEMP 97.5; O2SAT 93
[2015-12-19] MEDS: ARTIFICIAL TEARS OPTH SOLN 15 ML BTL EACH EYE SCH ×3 (08:06→18:31)
[2015-12-19] MEDS: MULTIVITAMINS/IRON/MINERALS CHEWABLE TAB CHEW SCH (08:06)
[2015-12-19] MEDS: DOCUSATE SODIUM 50 MG/SENNA 8.6 MG TAB PO SCH ×2 (08:06→19:40)
[2015-12-19] MEDS: FAMOTIDINE 20 MG TAB PO SCH ×2 (08:06→19:40)
[2015-12-19] MEDS: NYSTATIN 100,000 U/GM PWD 15 GM BTL TOPICAL SCH ×2 (08:07→21:00)
[2015-12-19 12:00] VITALS: BP 134/89; PULSE 93; RESP 18; TEMP 97; O2SAT 93
[2015-12-19 16:00] VITALS: BP 132/91; PULSE 104; RESP 17; TEMP 97.1; O2SAT 96
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
[2015-12-19 19:11] LABS: BICARBONATE 30.1 MEQ/L (21.0-32.0); MAGNESIUM 2.2 MG/DL (1.5-2.5)
[2015-12-19 19:22] LABS: AUTOMATED NEUTROPHIL # 5.9 TH/MM3 (1.8-7.7); BASOPHIL # 0.1 TH/MM3 (0-0.2); BASOPHIL % 0.6 % (0.0-2.0); EOSINOPHIL # 0.3 TH/MM3 (0-0.4); EOSINOPHIL % 3.9 % (0.0-4.0); HEMATOCRIT 36.8 % (39.0-51.0); LYMPH % 15.2 % (9.0-44.0); LYMPHOCYTE # 1.2 TH/MM3 (1.0-4.8); MEAN CELL VOLUME 70.5 FL (80.0-100.0); MEAN CORPUSCULAR HEMOGLOBIN 22.3 PG (27.0-34.0); MEAN CORPUSCULAR HGB CONC 31.6 % (32.0-36.0); NEUT % 74.3 % (16.0-70.0); PLATELET COUNT 260 TH/MM3 (150-450); RED BLOOD COUNT 5.22 MIL/MM3 (4.50-5.90); RED CELL DISTRIBUTION WIDTH 18.6 % (11.6-17.2); WHITE BLOOD COUNT 7.9 TH/MM3 (4.0-11.0)
[2015-12-19 19:23] LABS: HEMO FLAGS AUTO DIFF; POTASSIUM 4.1 MEQ/L (3.5-5.1)
[2015-12-19 19:27] LABS: BURR CELLS 1+ (NORMAL); OVALOCYTES 2+ (NORMAL); PLATELET ESTIMATE SMEAR NORMAL (NORMAL); PLATELET MORPHOLOGY NORMAL (NORMAL); SCAN/DIFF AUTO DIFF CONFIRMED
[2015-12-19 20:00] VITALS: BP 137/88; PULSE 98; RESP 20; TEMP 96.8; O2SAT 94
[2015-12-20] VITALS: BP 123/92; PULSE 103; RESP 20; TEMP 98.8; O2SAT 97
[2015-12-20] MEDS: CHLORHEXIDINE GLUCONATE 2 % 1 PACK (2 CLOTHS) TOP SCH (03:57)
[2015-12-20] MEDS: ENOXAPARIN SODIUM 60 MG/0.6 ML SYRINGE SQ SCH ×2 (04:33→14:12)
[2015-12-20] MEDS: FAMOTIDINE 20 MG TAB PO SCH ×2 (07:36→20:54)
[2015-12-20] MEDS: MULTIVITAMINS/IRON/MINERALS CHEWABLE TAB CHEW SCH (07:36)
[2015-12-20] MEDS: DOCUSATE SODIUM 50 MG/SENNA 8.6 MG TAB PO SCH ×2 (07:37→20:54)
[2015-12-20] MEDS: NYSTATIN 100,000 U/GM PWD 15 GM BTL TOPICAL SCH ×2 (07:39→20:58)
[2015-12-20] MEDS: ARTIFICIAL TEARS OPTH SOLN 15 ML BTL EACH EYE SCH ×3 (07:39→17:19)
[2015-12-20 08:00] VITALS: BP 134/81; PULSE 97; RESP 17; TEMP 97.1; O2SAT 96
[2015-12-20 12:00] VITALS: BP 132/80; PULSE 97; RESP 18; TEMP 97.1; O2SAT 95
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
[2015-12-20 16:00] VITALS: BP 131/67; PULSE 92; RESP 17; TEMP 96.6; O2SAT 96
[2015-12-20 20:00] VITALS: BP 135/78; PULSE 95; RESP 20; TEMP 96.5; O2SAT 96
[2015-12-20] MEDS: METOPROLOL TARTRATE 25 MG TAB PO SCH (20:54)
--- NOTE | 2015-12-20 23:00 | EKG ---
Date Performed: 12/19/2015 Time Performed: 13:46:50 PTAGE: 40 years EKG: SINUS TACHYCARDIA WITH FREQUENT VENTRICULAR PREMATURE COMPLEXES NONSPECIFIC T-WAVE ABNORMAL ITY ABNORMAL RHYTHM ECG PREVIOUS TRACING : 10/13/2015 13.55 DOCTOR: Thierno Brothers Interpretating Date/Time 08/22/2016 14:40:11
[2015-12-21 00:02] VITALS: BP 129/75; PULSE 80; RESP 18; TEMP 98.5; O2SAT 95
[2015-12-21] MEDS: HYDROmorphone HCL 4 MG TAB PO PRN ×3 (01:12→20:49)
[2015-12-21] MEDS: ENOXAPARIN SODIUM 60 MG/0.6 ML SYRINGE SQ SCH ×2 (04:08→15:11)
[2015-12-21] MEDS: CHLORHEXIDINE GLUCONATE 2 % 1 PACK (2 CLOTHS) TOP SCH (04:11)
[2015-12-21 08:00] VITALS: BP 128/65; PULSE 85; RESP 14; TEMP 96; O2SAT 94
[2015-12-21] MEDS: MULTIVITAMINS/IRON/MINERALS CHEWABLE TAB CHEW SCH (08:41)
[2015-12-21] MEDS: METOPROLOL TARTRATE 25 MG TAB PO SCH ×2 (08:42→20:49)
[2015-12-21] MEDS: FAMOTIDINE 20 MG TAB PO SCH ×2 (08:42→20:50)
[2015-12-21] MEDS: NYSTATIN 100,000 U/GM PWD 15 GM BTL TOPICAL SCH ×2 (08:43→21:00)
[2015-12-21] MEDS: DOCUSATE SODIUM 50 MG/SENNA 8.6 MG TAB PO SCH ×2 (08:43→20:49)
[2015-12-21] MEDS: ARTIFICIAL TEARS OPTH SOLN 15 ML BTL EACH EYE SCH ×3 (08:43→17:15)
[2015-12-21 12:00] VITALS: BP 134/65; PULSE 86; RESP 14; TEMP 97.2; O2SAT 94
[2015-12-21 16:00] VITALS: BP 124/90; PULSE 97; RESP 14; TEMP 97.1; O2SAT 96
--- NOTE | 2015-12-21 16:41 | EC ---
Study Study Date:12/21/2015 STUDY CONCLUSIONS SUMMARY LEFT VENTRICLE: The cavity size was normal. Wall thickness was normal. Systolic function was normal. The estimated ejection fraction was in the range of 55% to 60%. Wall motion was normal; there were no regional wall motion abnormalities. If LV function is below 40, please consider prescribing an ACEI or ARB or document rationale for non-use. PROCEDURE DATA STUDY STATUS: Elective. Procedure: Transthoracic echocardiography. Image quality was poor. The study was technically limited due to poor acoustic window availability. Scanning was performed from the parasternal, apical, and subcostal acoustic windows. Study completion: The patient tolerated the procedure well. Transthoracic echocardiography. M-mode, complete 2D, complete spectral Doppler, and color Doppler. Patient status: Inpatient. CARDIAC ANATOMY LEFT VENTRICLE: The cavity size was normal. Wall thickness was normal. Systolic function was normal. The estimated ejection fraction was in the range of 55% to 60%. Wall motion was normal; there were no regional wall motion abnormalities. AORTIC VALVE: Trileaflet; normal thickness leaflets. Doppler: Transvalvular velocity was within the normal range. There was no stenosis. No regurgitation. AORTA: Aortic root: The aortic root was normal in size. MITRAL VALVE: Structurally normal valve. Doppler: Transvalvular velocity was within the normal range. There was no evidence for stenosis. No regurgitation. LEFT ATRIUM: The atrium was normal in size. RIGHT VENTRICLE: The cavity size was normal. Wall thickness was normal. PULMONIC VALVE: Doppler: Transvalvular velocity was within the normal range. There was no evidence for stenosis. No regurgitation. TRICUSPID VALVE: Structurally normal valve. Doppler: Transvalvular velocity was within the normal range. No regurgitation. PULMONARY ARTERY: The main pulmonary artery was normal-sized. Systolic pressure was within the normal range. RIGHT ATRIUM: The atrium was normal in size. PERICARDIUM: There was no pericardial effusion. SYSTEMIC VEINS: Inferior vena cava: The vessel was normal in size. Prepared and signed by Gregory Parr [id number]
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
[2015-12-21 20:01] VITALS: BP 142/75; PULSE 92; RESP 22; TEMP 96.2; O2SAT 96
[2015-12-22 00:01] VITALS: BP 132/75; PULSE 90; RESP 20; TEMP 96.5; O2SAT 95
[2015-12-22] MEDS: CHLORHEXIDINE GLUCONATE 2 % 1 PACK (2 CLOTHS) TOP SCH (05:20)
[2015-12-22] MEDS: ENOXAPARIN SODIUM 60 MG/0.6 ML SYRINGE SQ SCH ×2 (05:21→14:05)
[2015-12-22] MEDS: ARTIFICIAL TEARS OPTH SOLN 15 ML BTL EACH EYE SCH ×3 (07:50→17:56)
[2015-12-22] MEDS: METOPROLOL TARTRATE 25 MG TAB PO SCH ×2 (07:50→21:01)
[2015-12-22] MEDS: NYSTATIN 100,000 U/GM PWD 15 GM BTL TOPICAL SCH ×2 (07:50→21:00)
[2015-12-22] MEDS: FAMOTIDINE 20 MG TAB PO SCH ×2 (07:50→21:01)
[2015-12-22] MEDS: DOCUSATE SODIUM 50 MG/SENNA 8.6 MG TAB PO SCH ×2 (07:50→21:01)
[2015-12-22] MEDS: MULTIVITAMINS/IRON/MINERALS CHEWABLE TAB CHEW SCH (07:50)
[2015-12-22 08:00] VITALS: BP 129/65; PULSE 92; RESP 16; TEMP 95.9; O2SAT 95
[2015-12-22 12:00] VITALS: BP 132/75; PULSE 75; RESP 20; TEMP 98.6; O2SAT 96
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
[2015-12-22 16:00] VITALS: BP 120/69; PULSE 83; RESP 20; TEMP 96.7; O2SAT 97
[2015-12-22] MEDS: HYDROmorphone HCL 4 MG TAB PO PRN (17:55)
[2015-12-22 20:00] VITALS: BP 129/62; PULSE 120; RESP 20; TEMP 98.3; O2SAT 95
[2015-12-23] VITALS (7 sets, daily range): BP systolic 125–148; BP diastolic 69–80; PULSE 75–80; RESP 18–21; TEMP 96.6–98.5; O2SAT 95–98
[2015-12-23] MEDS: CHLORHEXIDINE GLUCONATE 2 % 1 PACK (2 CLOTHS) TOP SCH (04:00)
[2015-12-23] MEDS: ENOXAPARIN SODIUM 60 MG/0.6 ML SYRINGE SQ SCH ×2 (07:10→16:00)
[2015-12-23] MEDS: MULTIVITAMINS/IRON/MINERALS CHEWABLE TAB CHEW SCH (07:51)
[2015-12-23] MEDS: NYSTATIN 100,000 U/GM PWD 15 GM BTL TOPICAL SCH ×2 (07:51→21:00)
[2015-12-23] MEDS: FAMOTIDINE 20 MG TAB PO SCH ×2 (07:51→21:33)
[2015-12-23] MEDS: METOPROLOL TARTRATE 25 MG TAB PO SCH ×2 (07:51→21:33)
[2015-12-23] MEDS: DOCUSATE SODIUM 50 MG/SENNA 8.6 MG TAB PO SCH ×2 (07:51→21:33)
[2015-12-23] MEDS: ARTIFICIAL TEARS OPTH SOLN 15 ML BTL EACH EYE SCH ×3 (07:51→18:00)
[2015-12-23] MEDS: HYDROmorphone HCL 4 MG TAB PO PRN (13:51)
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
[2015-12-24] MEDS: CHLORHEXIDINE GLUCONATE 2 % 1 PACK (2 CLOTHS) TOP SCH (04:00)
[2015-12-24] MEDS: ENOXAPARIN SODIUM 60 MG/0.6 ML SYRINGE SQ SCH ×2 (06:38→17:35)
[2015-12-24 08:00] VITALS: BP 127/67; PULSE 82; RESP 20; TEMP 98.6; O2SAT 93
[2015-12-24] MEDS: MULTIVITAMINS/IRON/MINERALS CHEWABLE TAB CHEW SCH (11:46)
[2015-12-24] MEDS: METOPROLOL TARTRATE 25 MG TAB PO SCH ×2 (11:46→21:41)
[2015-12-24] MEDS: FAMOTIDINE 20 MG TAB PO SCH ×2 (11:47→21:41)
[2015-12-24] MEDS: DOCUSATE SODIUM 50 MG/SENNA 8.6 MG TAB PO SCH ×2 (11:47→21:41)
[2015-12-24] MEDS: ARTIFICIAL TEARS OPTH SOLN 15 ML BTL EACH EYE SCH ×2 (11:47→17:40)
[2015-12-24] MEDS: HYDROmorphone HCL 4 MG TAB PO PRN (11:47)
[2015-12-24] MEDS: NYSTATIN 100,000 U/GM PWD 15 GM BTL TOPICAL SCH ×2 (11:48→21:00)
[2015-12-24 12:00] VITALS: BP 139/74; PULSE 64; RESP 18; TEMP 97.4; O2SAT 95
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
[2015-12-24 16:00] VITALS: BP 140/73; PULSE 69; RESP 18; TEMP 97.7; O2SAT 94
[2015-12-24 20:00] VITALS: BP 135/71; PULSE 92; RESP 22; TEMP 97; O2SAT 95
[2015-12-24 23:54] VITALS: BP 136/73; PULSE 80; RESP 20; TEMP 96.5; O2SAT 95
[2015-12-25] MEDS: ENOXAPARIN SODIUM 60 MG/0.6 ML SYRINGE SQ SCH ×2 (03:54→17:21)
[2015-12-25] MEDS: CHLORHEXIDINE GLUCONATE 2 % 1 PACK (2 CLOTHS) TOP SCH (03:55)
[2015-12-25 08:00] VITALS: BP 153/80; PULSE 74; RESP 19; TEMP 99.1; O2SAT 94
[2015-12-25] MEDS: METOPROLOL TARTRATE 25 MG TAB PO SCH ×2 (11:51→20:56)
[2015-12-25] MEDS: MULTIVITAMINS/IRON/MINERALS CHEWABLE TAB CHEW SCH (11:51)
[2015-12-25] MEDS: ARTIFICIAL TEARS OPTH SOLN 15 ML BTL EACH EYE SCH ×3 (11:51→18:00)
[2015-12-25] MEDS: NYSTATIN 100,000 U/GM PWD 15 GM BTL TOPICAL SCH ×2 (11:51→21:00)
[2015-12-25] MEDS: HYDROmorphone HCL 4 MG TAB PO PRN ×2 (11:52→21:03)
[2015-12-25] MEDS: FAMOTIDINE 20 MG TAB PO SCH ×2 (11:52→20:57)
[2015-12-25] MEDS: DOCUSATE SODIUM 50 MG/SENNA 8.6 MG TAB PO SCH ×2 (11:52→20:56)
[2015-12-25 12:00] VITALS: BP 141/67; PULSE 68; RESP 18; TEMP 99.2; O2SAT 94
[2015-12-25 16:00] VITALS: BP 135/70; PULSE 72; RESP 18; TEMP 97.4; O2SAT 95
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
[2015-12-25 20:01] VITALS: BP 153/82; PULSE 66; RESP 20; TEMP 97.4; O2SAT 94
[2015-12-26] VITALS: BP 134/75; PULSE 80; RESP 20; TEMP 96.9; O2SAT 94
[2015-12-26] MEDS: CHLORHEXIDINE GLUCONATE 2 % 1 PACK (2 CLOTHS) TOP SCH (04:00)
[2015-12-26] MEDS: ENOXAPARIN SODIUM 60 MG/0.6 ML SYRINGE SQ SCH ×2 (05:00→16:00)
[2015-12-26 08:00] VITALS: BP 135/70; PULSE 78; RESP 19; TEMP 97.3; O2SAT 95
[2015-12-26] MEDS: MULTIVITAMINS/IRON/MINERALS CHEWABLE TAB CHEW SCH (09:00)
[2015-12-26] MEDS: DOCUSATE SODIUM 50 MG/SENNA 8.6 MG TAB PO SCH ×2 (09:00→21:45)
[2015-12-26] MEDS: NYSTATIN 100,000 U/GM PWD 15 GM BTL TOPICAL SCH ×2 (09:00→21:45)
[2015-12-26] MEDS: METOPROLOL TARTRATE 25 MG TAB PO SCH ×2 (09:00→21:45)
[2015-12-26] MEDS: FAMOTIDINE 20 MG TAB PO SCH ×2 (09:00→21:45)
[2015-12-26] MEDS: ARTIFICIAL TEARS OPTH SOLN 15 ML BTL EACH EYE SCH (09:00)
[2015-12-26 12:00] VITALS: BP 129/76; PULSE 83; RESP 21; TEMP 97.4; O2SAT 95
[2015-12-26 20:00] VITALS: BP 154/78; PULSE 80; RESP 18; TEMP 97.6; O2SAT 96
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
[2015-12-27] VITALS: BP 159/83; PULSE 83; RESP 19; TEMP 97.6; O2SAT 96
[2015-12-27] MEDS: ENOXAPARIN SODIUM 60 MG/0.6 ML SYRINGE SQ SCH ×2 (03:50→16:25)
[2015-12-27] MEDS: CHLORHEXIDINE GLUCONATE 2 % 1 PACK (2 CLOTHS) TOP SCH (03:51)
[2015-12-27 08:00] VITALS: BP 130/71; PULSE 75; RESP 18; TEMP 96.9; O2SAT 95
[2015-12-27] MEDS: DOCUSATE SODIUM 50 MG/SENNA 8.6 MG TAB PO SCH ×2 (08:27→20:50)
[2015-12-27] MEDS: FAMOTIDINE 20 MG TAB PO SCH ×2 (08:27→20:50)
[2015-12-27] MEDS: METOPROLOL TARTRATE 25 MG TAB PO SCH ×2 (08:27→20:50)
[2015-12-27] MEDS: MULTIVITAMINS/IRON/MINERALS CHEWABLE TAB CHEW SCH (08:27)
[2015-12-27] MEDS: NYSTATIN 100,000 U/GM PWD 15 GM BTL TOPICAL SCH ×2 (08:27→20:51)
[2015-12-27] MEDS: ARTIFICIAL TEARS OPTH SOLN 15 ML BTL EACH EYE SCH ×3 (09:00→16:25)
--- NOTE | 2015-12-27 10:24 | RADRPT ---
EXAM DATE/TIME: 12/27/2015 09:19 [place] COMPARISON: KNEE LEFT LTD (1 OR 2VWS), November 18, 2015, 9:53. INDICATIONS : Left knee pain. Previous fracture repair. MEDICAL HISTORY : Venous statsis, lower extemity. Chronic back pain. Substance use. MRSA. SURGICAL HISTORY : ORIF left femur. ENCOUNTER: Subsequent ACUITY: 3 weeks PAIN SCORE: 8/10 LOCATION: Left knee FINDINGS: There is internal fixation of a fracture of the distal femur with sideplate. There is no evidence of acute fracture. Fracture line remains visible. CONCLUSION: 1. There is no evidence of acute fracture. Gregory Jolly MD on December 27, 2015 at 10:22 Board Certified Radiologist. This report was verified electronically.
[2015-12-27 12:00] VITALS: BP 127/67; PULSE 75; RESP 18; TEMP 97.5; O2SAT 94
[2015-12-27 16:00] VITALS: BP 124/72; PULSE 54; RESP 16; TEMP 96.9; O2SAT 98
--- NOTE | 2015-12-27 16:19 | HHI.PR ---
Addendum to Inpatient Note Additional Information Pt seen. No changes to care plan. Jessi Shaver MD Dec 27, 2015 16:19
[2015-12-27 20:35] VITALS: BP 143/77; PULSE 78; RESP 19; TEMP 97.6; O2SAT 96
[2015-12-28 00:12] VITALS: BP 135/85; PULSE 78; RESP 18; TEMP 97.8; O2SAT 98
[2015-12-28] MEDS: CHLORHEXIDINE GLUCONATE 2 % 1 PACK (2 CLOTHS) TOP SCH (03:21)
[2015-12-28] MEDS: ENOXAPARIN SODIUM 60 MG/0.6 ML SYRINGE SQ SCH ×2 (03:21→16:08)
[2015-12-28 08:00] VITALS: BP 135/66; PULSE 85; RESP 20; TEMP 97.5; O2SAT 94
[2015-12-28] MEDS: DOCUSATE SODIUM 50 MG/SENNA 8.6 MG TAB PO SCH ×2 (08:08→22:37)
[2015-12-28] MEDS: MULTIVITAMINS/IRON/MINERALS CHEWABLE TAB CHEW SCH (08:08)
[2015-12-28] MEDS: FAMOTIDINE 20 MG TAB PO SCH ×2 (08:08→22:37)
[2015-12-28] MEDS: METOPROLOL TARTRATE 25 MG TAB PO SCH ×2 (08:08→22:37)
[2015-12-28] MEDS: ARTIFICIAL TEARS OPTH SOLN 15 ML BTL EACH EYE SCH ×3 (08:08→17:27)
[2015-12-28] MEDS: NYSTATIN 100,000 U/GM PWD 15 GM BTL TOPICAL SCH ×2 (08:09→21:00)
[2015-12-28 12:00] VITALS: BP 138/71; PULSE 89; RESP 20; TEMP 96.9; O2SAT 95
[2015-12-28 16:00] VITALS: BP 136/74; PULSE 90; RESP 20; TEMP 96.7; O2SAT 96
[2015-12-28] MEDS: HYDROmorphone HCL 4 MG TAB PO PRN (17:53)
[2015-12-28 20:00] VITALS: BP 130/70; PULSE 88; RESP 20; TEMP 97.2; O2SAT 96
[2015-12-29] VITALS: BP 124/68; PULSE 82; RESP 20; TEMP 97.6; O2SAT 97
[2015-12-29] MEDS: CHLORHEXIDINE GLUCONATE 2 % 1 PACK (2 CLOTHS) TOP SCH (02:17)
[2015-12-29] MEDS: ENOXAPARIN SODIUM 60 MG/0.6 ML SYRINGE SQ SCH ×2 (06:11→17:25)
[2015-12-29 08:00] VITALS: BP 134/69; PULSE 78; RESP 17; TEMP 97.9; O2SAT 93
[2015-12-29] MEDS: NYSTATIN 100,000 U/GM PWD 15 GM BTL TOPICAL SCH ×2 (09:00→21:00)
[2015-12-29] MEDS: MULTIVITAMINS/IRON/MINERALS CHEWABLE TAB CHEW SCH (09:00)
[2015-12-29 12:00] VITALS: BP 135/72; PULSE 90; RESP 17; TEMP 97.9; O2SAT 91
[2015-12-29] MEDS: DOCUSATE SODIUM 50 MG/SENNA 8.6 MG TAB PO SCH ×2 (13:43→21:22)
[2015-12-29] MEDS: METOPROLOL TARTRATE 25 MG TAB PO SCH ×2 (13:43→21:22)
[2015-12-29] MEDS: FAMOTIDINE 20 MG TAB PO SCH ×2 (13:43→21:22)
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
[2015-12-29 16:00] VITALS: BP 132/70; PULSE 90; RESP 17; TEMP 97.4; O2SAT 92
[2015-12-29] MEDS: HYDROmorphone HCL 4 MG TAB PO PRN (17:25)
[2015-12-29] MEDS: ARTIFICIAL TEARS OPTH SOLN 15 ML BTL EACH EYE SCH ×2 (17:27→17:28)
[2015-12-29 20:00] VITALS: BP 128/87; PULSE 81; RESP 20; TEMP 97.8; O2SAT 96
[2015-12-30] MEDS: CHLORHEXIDINE GLUCONATE 2 % 1 PACK (2 CLOTHS) TOP SCH (04:00)
[2015-12-30] MEDS: ENOXAPARIN SODIUM 60 MG/0.6 ML SYRINGE SQ SCH ×2 (04:03→17:31)
[2015-12-30 08:00] VITALS: BP 132/86; PULSE 86; RESP 17; TEMP 96; O2SAT 96
[2015-12-30] MEDS: ARTIFICIAL TEARS OPTH SOLN 15 ML BTL EACH EYE SCH ×3 (09:00→17:40)
[2015-12-30] MEDS: NYSTATIN 100,000 U/GM PWD 15 GM BTL TOPICAL SCH ×2 (09:00→21:22)
[2015-12-30 09:19] VITALS: O2SAT 94
[2015-12-30 12:00] VITALS: BP 122/73; PULSE 74; RESP 16; TEMP 96.7; O2SAT 94
[2015-12-30] MEDS: MULTIVITAMINS/IRON/MINERALS CHEWABLE TAB CHEW SCH (17:31)
[2015-12-30] MEDS: METOPROLOL TARTRATE 25 MG TAB PO SCH ×2 (17:32→21:19)
[2015-12-30] MEDS: DOCUSATE SODIUM 50 MG/SENNA 8.6 MG TAB PO SCH ×2 (17:32→21:19)
[2015-12-30] MEDS: FAMOTIDINE 20 MG TAB PO SCH ×2 (17:32→21:19)
[2015-12-30 20:00] VITALS: BP 129/85; PULSE 80; RESP 22; TEMP 98.2; O2SAT 95
[2015-12-30] MEDS: HYDROmorphone HCL 4 MG TAB PO PRN (21:20)
[2015-12-31] VITALS: BP 129/80; PULSE 104; RESP 22; TEMP 97.3; O2SAT 95
[2015-12-31 04:00] VITALS: BP 124/67; PULSE 79; RESP 22; TEMP 97.2; O2SAT 94
[2015-12-31] MEDS: CHLORHEXIDINE GLUCONATE 2 % 1 PACK (2 CLOTHS) TOP SCH (04:00)
[2015-12-31] MEDS: ENOXAPARIN SODIUM 60 MG/0.6 ML SYRINGE SQ SCH ×2 (04:33→15:51)
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
[2015-12-31 08:00] VITALS: BP 125/73; PULSE 89; RESP 20; TEMP 96.9; O2SAT 94
[2015-12-31] MEDS: FAMOTIDINE 20 MG TAB PO SCH ×2 (08:13→19:53)
[2015-12-31] MEDS: MULTIVITAMINS/IRON/MINERALS CHEWABLE TAB CHEW SCH (08:13)
[2015-12-31] MEDS: METOPROLOL TARTRATE 25 MG TAB PO SCH ×2 (08:13→19:53)
[2015-12-31] MEDS: DOCUSATE SODIUM 50 MG/SENNA 8.6 MG TAB PO SCH ×2 (08:13→19:53)
[2015-12-31] MEDS: NYSTATIN 100,000 U/GM PWD 15 GM BTL TOPICAL SCH ×2 (08:15→19:54)
[2015-12-31] MEDS: ARTIFICIAL TEARS OPTH SOLN 15 ML BTL EACH EYE SCH ×3 (08:15→15:52)
[2015-12-31 12:00] VITALS: BP 126/76; PULSE 78; RESP 18; TEMP 96.8; O2SAT 95
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
[2015-12-31] MEDS: HYDROmorphone HCL 4 MG TAB PO PRN (19:53)
[2015-12-31 20:00] VITALS: BP 130/81; PULSE 93; RESP 21; TEMP 96; O2SAT 96
[2016-01-01] VITALS: BP 137/83; PULSE 80; RESP 21; TEMP 99.5; O2SAT 96
[2016-01-01] MEDS: CHLORHEXIDINE GLUCONATE 2 % 1 PACK (2 CLOTHS) TOP SCH (01:28)
[2016-01-01] MEDS: ENOXAPARIN SODIUM 60 MG/0.6 ML SYRINGE SQ SCH ×2 (04:24→16:05)
[2016-01-01 08:00] VITALS: BP 136/88; PULSE 91; RESP 17; TEMP 96.7; O2SAT 96
[2016-01-01] MEDS: ARTIFICIAL TEARS OPTH SOLN 15 ML BTL EACH EYE SCH ×3 (08:25→16:06)
[2016-01-01] MEDS: NYSTATIN 100,000 U/GM PWD 15 GM BTL TOPICAL SCH ×2 (08:26→22:06)
[2016-01-01] MEDS: FAMOTIDINE 20 MG TAB PO SCH ×2 (08:27→22:04)
[2016-01-01] MEDS: DOCUSATE SODIUM 50 MG/SENNA 8.6 MG TAB PO SCH ×2 (08:27→22:05)
[2016-01-01] MEDS: METOPROLOL TARTRATE 25 MG TAB PO SCH ×2 (08:27→22:05)
[2016-01-01] MEDS: MULTIVITAMINS/IRON/MINERALS CHEWABLE TAB CHEW SCH (08:28)
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
[2016-01-01 11:53] VITALS: BP 126/68; PULSE 74; RESP 16; TEMP 96.5; O2SAT 98
[2016-01-01 15:58] VITALS: BP 141/91; PULSE 80; RESP 17; TEMP 97.6; O2SAT 97
[2016-01-01 20:00] VITALS: BP 140/69; PULSE 87; RESP 21; TEMP 96.9; O2SAT 95
[2016-01-02] VITALS: BP 138/68; PULSE 80; RESP 21; TEMP 96.8; O2SAT 93
[2016-01-02] MEDS: CHLORHEXIDINE GLUCONATE 2 % 1 PACK (2 CLOTHS) TOP SCH (04:00)
[2016-01-02] MEDS: ENOXAPARIN SODIUM 60 MG/0.6 ML SYRINGE SQ SCH ×2 (05:15→17:22)
[2016-01-02 08:00] VITALS: BP 123/80; PULSE 90; RESP 17; TEMP 97; O2SAT 96
[2016-01-02 12:00] VITALS: BP 132/82; PULSE 93; RESP 16; TEMP 96.4; O2SAT 96
[2016-01-02] MEDS: METOPROLOL TARTRATE 25 MG TAB PO SCH ×2 (12:01→20:03)
[2016-01-02] MEDS: DOCUSATE SODIUM 50 MG/SENNA 8.6 MG TAB PO SCH ×2 (12:01→20:03)
[2016-01-02] MEDS: NYSTATIN 100,000 U/GM PWD 15 GM BTL TOPICAL SCH ×2 (12:01→20:03)
[2016-01-02] MEDS: FAMOTIDINE 20 MG TAB PO SCH ×2 (12:01→20:03)
[2016-01-02] MEDS: MULTIVITAMINS/IRON/MINERALS CHEWABLE TAB CHEW SCH (12:01)
[2016-01-02] MEDS: ARTIFICIAL TEARS OPTH SOLN 15 ML BTL EACH EYE SCH ×3 (12:02→17:22)
[2016-01-02 16:00] VITALS: BP 131/68; PULSE 82; RESP 17; TEMP 97.1; O2SAT 97
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
[2016-01-02] MEDS: HYDROmorphone HCL 4 MG TAB PO PRN ×2 (17:22→22:37)
[2016-01-02 20:00] VITALS: BP 144/93; PULSE 89; RESP 18; TEMP 97.5; O2SAT 97
[2016-01-03] VITALS: BP 131/85; PULSE 90; RESP 18; TEMP 96.8; O2SAT 97
[2016-01-03] MEDS: CHLORHEXIDINE GLUCONATE 2 % 1 PACK (2 CLOTHS) TOP SCH (04:00)
[2016-01-03] MEDS: ENOXAPARIN SODIUM 60 MG/0.6 ML SYRINGE SQ SCH ×2 (05:16→16:59)
[2016-01-03 08:00] VITALS: BP 132/75; PULSE 93; RESP 14; TEMP 96.3; O2SAT 95
[2016-01-03] MEDS: MULTIVITAMINS/IRON/MINERALS CHEWABLE TAB CHEW SCH (09:55)
[2016-01-03] MEDS: DOCUSATE SODIUM 50 MG/SENNA 8.6 MG TAB PO SCH ×2 (09:55→22:13)
[2016-01-03] MEDS: METOPROLOL TARTRATE 25 MG TAB PO SCH ×2 (09:55→22:13)
[2016-01-03] MEDS: FAMOTIDINE 20 MG TAB PO SCH ×2 (09:55→22:13)
[2016-01-03] MEDS: ARTIFICIAL TEARS OPTH SOLN 15 ML BTL EACH EYE SCH ×3 (09:56→17:01)
[2016-01-03] MEDS: NYSTATIN 100,000 U/GM PWD 15 GM BTL TOPICAL SCH ×2 (09:56→22:14)
[2016-01-03 12:00] VITALS: BP 115/75; PULSE 87; RESP 16; TEMP 96.1; O2SAT 95
[2016-01-03 16:00] VITALS: BP 142/85; PULSE 88; RESP 15; TEMP 98; O2SAT 96
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
[2016-01-03 20:00] VITALS: BP 137/79; PULSE 98; RESP 18; TEMP 97.5; O2SAT 95
--- NOTE | 2016-01-03 21:14 | HHI.NSPN ---
History Chief Complaint: no verbal complaint Interval History Patient reports no significant change in April showed a sensory function over the past month. He feels that his right greater than left distal lower extremity strength has improved somewhat. Exam Results Vital Signs Date Time Temp Pulse Resp B/P Pulse Ox O2 Delivery O2 Flow Rate FiO2 01/03/16 16:00 98.0 88 15 142/85 96 12/30/15 22:13 21 Intake and Output 01/02/16 01/02/16 01/03/16 08:00 16:00 00:00 Intake Total 360 ml 1920 ml 620 ml Output Total 1800 ml 325 ml 400 ml Balance -1440 ml 1595 ml 220 ml Physical Examination Patient is lying in bed in no acute distress Alert and oriented x 3. Speech is clear. Sensation intact to light touch in upper extremities. Reports diffuse paresthesias in the right LE. Lower extremity motor: Iliopsoas and quadriceps 2 right, 1 left; tibialis anterior 3+ right, 2 left; gastrocsoleus 5 right, 3 left No right ankle clonus Right plantar response neutral Medical Decision Making Impression and Plan Impression: T9 10 fracture with distraction type injury. Patient has some evidence of chronic degenerative changes with anterior osteophyte formation at this level. Follow-up CT scan 11/10/15 reveals stable alignment with possibly some early bridging osteophyte formation. Lower extremity neurologic exam relatively stable over the past month, possible minimal improvement in distal lower extremity motor function. Recommendations: Will proceed with three-month postinjury CT scan of the thoracic spine to determine if there is any further bone formation along the T9-T10 level. He has primarily a injury involving the disc and ligamentous structures of the spine rather than primarily a fracture, diminishing the chance of improvement with conservative treatment. Patient wishes to postpone the CT scan until 01/05/16 as he is concerned about proper equipment to move him to the CT scanning suite. Gilberto Herbert MD Jan 03, 2016 21:14
[2016-01-04] VITALS: BP 119/74; PULSE 107; RESP 18; TEMP 96.6; O2SAT 96
[2016-01-04] MEDS: CHLORHEXIDINE GLUCONATE 2 % 1 PACK (2 CLOTHS) TOP SCH (04:00)
[2016-01-04] MEDS: HYDROmorphone HCL 4 MG TAB PO PRN ×2 (05:46→17:56)
[2016-01-04] MEDS: ENOXAPARIN SODIUM 60 MG/0.6 ML SYRINGE SQ SCH ×2 (05:47→16:11)
[2016-01-04 08:00] VITALS: BP 122/75; PULSE 84; RESP 16; TEMP 95.7; O2SAT 97
[2016-01-04] MEDS: METOPROLOL TARTRATE 25 MG TAB PO SCH ×2 (08:55→22:57)
[2016-01-04] MEDS: ARTIFICIAL TEARS OPTH SOLN 15 ML BTL EACH EYE SCH ×3 (08:55→16:14)
[2016-01-04] MEDS: FAMOTIDINE 20 MG TAB PO SCH ×2 (08:55→22:57)
[2016-01-04] MEDS: NYSTATIN 100,000 U/GM PWD 15 GM BTL TOPICAL SCH ×2 (08:55→22:57)
[2016-01-04] MEDS: DOCUSATE SODIUM 50 MG/SENNA 8.6 MG TAB PO SCH ×2 (08:55→22:57)
[2016-01-04] MEDS: MULTIVITAMINS/IRON/MINERALS CHEWABLE TAB CHEW SCH (08:55)
[2016-01-04 12:00] VITALS: BP 132/66; PULSE 82; RESP 20; TEMP 95; O2SAT 96
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
[2016-01-04 16:00] VITALS: BP 124/76; PULSE 88; RESP 18; TEMP 97.2; O2SAT 96
[2016-01-04 20:00] VITALS: BP_SYST 134; BP_SYST 142; BP_DIAS 75; BP_DIAS 81; PULSE 118; PULSE 52; RESP 20; TEMP 96.3; O2SAT 95; O2SAT 98
[2016-01-05] VITALS: BP 138/84; PULSE 94; RESP 20; TEMP 97.2; O2SAT 96
[2016-01-05] MEDS: ENOXAPARIN SODIUM 60 MG/0.6 ML SYRINGE SQ SCH ×2 (03:37→15:57)
[2016-01-05] MEDS: CHLORHEXIDINE GLUCONATE 2 % 1 PACK (2 CLOTHS) TOP SCH (03:40)
[2016-01-05] MEDS: HYDROmorphone HCL 4 MG TAB PO PRN (03:40)
[2016-01-05 08:28] VITALS: BP 131/70; PULSE 87; RESP 20; TEMP 96.9; O2SAT 99
[2016-01-05] MEDS: DOCUSATE SODIUM 50 MG/SENNA 8.6 MG TAB PO SCH ×2 (08:50→21:34)
[2016-01-05] MEDS: FAMOTIDINE 20 MG TAB PO SCH ×2 (08:50→21:34)
[2016-01-05] MEDS: NYSTATIN 100,000 U/GM PWD 15 GM BTL TOPICAL SCH ×2 (08:50→21:37)
[2016-01-05] MEDS: METOPROLOL TARTRATE 25 MG TAB PO SCH ×2 (08:50→21:34)
[2016-01-05] MEDS: ARTIFICIAL TEARS OPTH SOLN 15 ML BTL EACH EYE SCH ×3 (08:50→17:53)
[2016-01-05] MEDS: MULTIVITAMINS/IRON/MINERALS CHEWABLE TAB CHEW SCH (08:50)
[2016-01-05 12:21] VITALS: BP 156/87; PULSE 107; RESP 20; TEMP 97.8; O2SAT 97
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
[2016-01-05 16:35] VITALS: BP 140/80; PULSE 90; RESP 20; TEMP 97.8; O2SAT 97
[2016-01-05 20:00] VITALS: BP 133/70; PULSE 93; RESP 20; TEMP 98.1; O2SAT 94
[2016-01-06] VITALS: BP 125/64; PULSE 87; RESP 21; TEMP 97.7; O2SAT 92
[2016-01-06] MEDS: CHLORHEXIDINE GLUCONATE 2 % 1 PACK (2 CLOTHS) TOP SCH (04:00)
[2016-01-06] MEDS: ENOXAPARIN SODIUM 60 MG/0.6 ML SYRINGE SQ SCH ×2 (04:18→16:03)
[2016-01-06] MEDS: HYDROmorphone HCL 4 MG TAB PO PRN (04:18)
[2016-01-06 07:50] VITALS: BP 131/69; PULSE 88; RESP 19; TEMP 97.9; O2SAT 95
[2016-01-06] MEDS: METOPROLOL TARTRATE 25 MG TAB PO SCH ×2 (08:59→22:00)
[2016-01-06] MEDS: FAMOTIDINE 20 MG TAB PO SCH ×2 (08:59→22:00)
[2016-01-06] MEDS: DOCUSATE SODIUM 50 MG/SENNA 8.6 MG TAB PO SCH ×2 (08:59→22:01)
[2016-01-06] MEDS: MULTIVITAMINS/IRON/MINERALS CHEWABLE TAB CHEW SCH (08:59)
[2016-01-06] MEDS: NYSTATIN 100,000 U/GM PWD 15 GM BTL TOPICAL SCH ×2 (09:00→21:00)
[2016-01-06] MEDS: ARTIFICIAL TEARS OPTH SOLN 15 ML BTL EACH EYE SCH ×3 (09:00→18:00)
[2016-01-06 12:16] VITALS: BP 140/85; PULSE 110; RESP 20; TEMP 97.2; O2SAT 96
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
[2016-01-06 15:55] VITALS: BP 133/74; PULSE 117; RESP 20; TEMP 97.1; O2SAT 96
[2016-01-06 20:00] VITALS: BP 131/80; PULSE 86; RESP 21; TEMP 96; O2SAT 98
[2016-01-06] MEDS: SIMETHICONE 125 MG CHEWABLE TAB PO SCH (22:00)
[2016-01-07] VITALS: BP 126/73; PULSE 101; RESP 21; TEMP 98.6; O2SAT 95
[2016-01-07] MEDS: ENOXAPARIN SODIUM 60 MG/0.6 ML SYRINGE SQ SCH ×2 (03:33→15:42)
[2016-01-07] MEDS: CHLORHEXIDINE GLUCONATE 2 % 1 PACK (2 CLOTHS) TOP SCH (04:00)
[2016-01-07] MEDS: SIMETHICONE 125 MG CHEWABLE TAB PO SCH ×3 (04:05→20:00)
[2016-01-07] MEDS: METOPROLOL TARTRATE 25 MG TAB PO SCH ×2 (08:13→20:00)
[2016-01-07] MEDS: DOCUSATE SODIUM 50 MG/SENNA 8.6 MG TAB PO SCH ×2 (08:13→20:00)
[2016-01-07] MEDS: MULTIVITAMINS/IRON/MINERALS CHEWABLE TAB CHEW SCH (08:13)
[2016-01-07] MEDS: FAMOTIDINE 20 MG TAB PO SCH ×2 (08:13→19:59)
[2016-01-07] MEDS: NYSTATIN 100,000 U/GM PWD 15 GM BTL TOPICAL SCH ×2 (08:15→21:14)
[2016-01-07] MEDS: ARTIFICIAL TEARS OPTH SOLN 15 ML BTL EACH EYE SCH ×3 (08:15→15:42)
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
[2016-01-07 20:00] VITALS: BP 144/69; PULSE 88; RESP 20; TEMP 97.4; O2SAT 95
[2016-01-08] MEDS: SIMETHICONE 125 MG CHEWABLE TAB PO SCH ×2 (04:08→08:04)
[2016-01-08] MEDS: ENOXAPARIN SODIUM 60 MG/0.6 ML SYRINGE SQ SCH ×2 (04:09→14:23)
[2016-01-08] MEDS: CHLORHEXIDINE GLUCONATE 2 % 1 PACK (2 CLOTHS) TOP SCH (04:10)
[2016-01-08 08:00] VITALS: BP 137/85; PULSE 98; RESP 20; TEMP 98.5; O2SAT 95
[2016-01-08] MEDS: FAMOTIDINE 20 MG TAB PO SCH ×2 (08:02→20:40)
[2016-01-08] MEDS: METOPROLOL TARTRATE 25 MG TAB PO SCH ×2 (08:02→20:40)
[2016-01-08] MEDS: MULTIVITAMINS/IRON/MINERALS CHEWABLE TAB CHEW SCH (08:02)
[2016-01-08] MEDS: DOCUSATE SODIUM 50 MG/SENNA 8.6 MG TAB PO SCH ×2 (08:02→20:40)
[2016-01-08] MEDS: ARTIFICIAL TEARS OPTH SOLN 15 ML BTL EACH EYE SCH ×3 (08:04→15:32)
[2016-01-08] MEDS: NYSTATIN 100,000 U/GM PWD 15 GM BTL TOPICAL SCH ×2 (08:04→20:34)
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
[2016-01-08 12:00] VITALS: BP 148/82; PULSE 92; RESP 20; TEMP 97.9; O2SAT 95
[2016-01-08 16:00] VITALS: BP 138/74; PULSE 91; RESP 20; TEMP 97.4; O2SAT 96
[2016-01-08] MEDS: HYDROmorphone HCL 4 MG TAB PO PRN ×2 (18:17→23:51)
[2016-01-08 20:00] VITALS: BP 147/71; PULSE 94; RESP 20; TEMP 97.9; O2SAT 97
[2016-01-09] VITALS: BP 144/79; PULSE 79; RESP 20; TEMP 98.1; O2SAT 95
[2016-01-09] MEDS: CHLORHEXIDINE GLUCONATE 2 % 1 PACK (2 CLOTHS) TOP SCH (03:39)
[2016-01-09] MEDS: ENOXAPARIN SODIUM 60 MG/0.6 ML SYRINGE SQ SCH ×2 (03:46→16:13)
[2016-01-09 08:00] VITALS: BP 138/64; PULSE 64; RESP 16; TEMP 97.2; O2SAT 95
[2016-01-09] MEDS: METOPROLOL TARTRATE 25 MG TAB PO SCH ×2 (08:56→20:52)
[2016-01-09] MEDS: MULTIVITAMINS/IRON/MINERALS CHEWABLE TAB CHEW SCH (08:56)
[2016-01-09] MEDS: DOCUSATE SODIUM 50 MG/SENNA 8.6 MG TAB PO SCH ×2 (08:56→20:52)
[2016-01-09] MEDS: FAMOTIDINE 20 MG TAB PO SCH ×2 (08:57→20:52)
[2016-01-09] MEDS: NYSTATIN 100,000 U/GM PWD 15 GM BTL TOPICAL SCH ×2 (08:57→20:54)
[2016-01-09] MEDS: ARTIFICIAL TEARS OPTH SOLN 15 ML BTL EACH EYE SCH ×3 (08:57→16:13)
[2016-01-09 12:00] VITALS: BP 148/68; PULSE 54; RESP 16; TEMP 96.4; O2SAT 94
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
[2016-01-09 16:00] VITALS: BP 136/72; PULSE 68; RESP 16; TEMP 97.2; O2SAT 95
[2016-01-09 20:01] VITALS: BP 141/66; PULSE 79; RESP 20; TEMP 96.7; O2SAT 96
[2016-01-10 00:01] VITALS: BP 142/83; PULSE 78; RESP 20; TEMP 98.4; O2SAT 96
[2016-01-10] MEDS: ENOXAPARIN SODIUM 60 MG/0.6 ML SYRINGE SQ SCH ×2 (01:46→15:03)
[2016-01-10] MEDS: CHLORHEXIDINE GLUCONATE 2 % 1 PACK (2 CLOTHS) TOP SCH ×2 (01:46→20:45)
[2016-01-10 08:00] VITALS: BP 143/70; PULSE 84; RESP 20; TEMP 97.2; O2SAT 93
[2016-01-10] MEDS: DOCUSATE SODIUM 50 MG/SENNA 8.6 MG TAB PO SCH ×2 (08:26→20:33)
[2016-01-10] MEDS: METOPROLOL TARTRATE 25 MG TAB PO SCH ×2 (08:26→20:33)
[2016-01-10] MEDS: MULTIVITAMINS/IRON/MINERALS CHEWABLE TAB CHEW SCH (08:26)
[2016-01-10] MEDS: FAMOTIDINE 20 MG TAB PO SCH ×2 (08:26→20:34)
[2016-01-10] MEDS: NYSTATIN 100,000 U/GM PWD 15 GM BTL TOPICAL SCH ×2 (08:27→20:34)
[2016-01-10] MEDS: ARTIFICIAL TEARS OPTH SOLN 15 ML BTL EACH EYE SCH ×3 (08:27→18:00)
[2016-01-10 12:00] VITALS: BP 138/72; PULSE 82; RESP 18; TEMP 97.6; O2SAT 93
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
--- NOTE | 2016-01-10 14:14 | HHI.NSPN ---
History Chief Complaint: no verbal complaint Interval History Patient reports no significant change in April showed a sensory function over the past month. He feels that his right greater than left distal lower extremity strength has improved somewhat. Exam Results Vital Signs Date Time Temp Pulse Resp B/P Pulse Ox O2 Delivery O2 Flow Rate FiO2 01/10/16 12:00 97.6 82 18 138/72 93 Intake and Output 01/09/16 01/09/16 01/10/16 08:00 16:00 00:00 Intake Total 480 ml 360 ml 480 ml Output Total 1200 ml 1250 ml 1200 ml Balance -720 ml -890 ml -720 ml Physical Examination Patient is lying in bed in no acute distress Alert and oriented x 3. Speech is clear. Sensation intact to light touch in upper extremities. Reports diffuse paresthesias in the right greater than left LE. Lower extremity motor: Iliopsoas and quadriceps 2 right, 2 left; tibialis anterior 3+ right, 2 left; gastrocsoleus 5 right, 4 left No right ankle clonus Right plantar response neutral Medical Decision Making Impression and Plan Impression: T9 10 fracture with distraction type injury. Patient has some evidence of chronic degenerative changes with anterior osteophyte formation at this level. Follow-up CT scan 11/10/15 reveals stable alignment with possibly some early bridging osteophyte formation. Lower extremity neurologic exam relatively stable over the past month, possible minimal improvement in distal lower extremity motor function again noted on today's exam. Recommendations: Will proceed with three-month postinjury CT scan of the thoracic spine to determine if there is any further bone formation along the T9-T10 level. He has primarily a injury involving the disc and ligamentous structures of the spine rather than primarily a fracture, diminishing the chance of improvement with conservative treatment. CT scan previously ordered was postponed as the patient was concerned that the proper moving equipment was not available. I spoke with him regarding the move to the CT scanning suite again today . Gilberto Herbert MD Jan 10, 2016 14:14
[2016-01-10 16:00] VITALS: BP 148/76; PULSE 88; RESP 18; TEMP 97; O2SAT 93
[2016-01-10] MEDS: HYDROmorphone HCL 4 MG TAB PO PRN (17:41)
[2016-01-10 20:00] VITALS: BP 122/76; PULSE 95; RESP 18; TEMP 96.5; O2SAT 97
[2016-01-11] VITALS: BP 119/72; PULSE 82; RESP 18; TEMP 96.2; O2SAT 97
[2016-01-11] MEDS: ENOXAPARIN SODIUM 60 MG/0.6 ML SYRINGE SQ SCH ×2 (05:06→15:27)
--- NOTE | 2016-01-11 06:50 | PD.ORT.PN ---
Subjective Subjective Remarks s/p ORIF left distal femur fx on 10/11/15 (13w1d) reports doing well. no pain. states he has refused CT scan of left leg and spine due radiology not operating his bed properly? reports that he is agreeable to scan as long as bed operated correctly. Objective Vitals Vital Signs Date Time Temp Pulse Resp B/P Pulse Ox O2 Delivery O2 Flow Rate FiO2 01/11/16 00:00 96.2 82 18 119/72 97 01/10/16 20:00 96.5 95 18 122/76 97 01/10/16 18:41 20 01/10/16 16:03 20 01/10/16 16:00 97.0 88 18 148/76 93 01/10/16 12:00 97.6 82 18 138/72 93 01/10/16 08:00 97.2 84 20 143/70 93 I/O 01/10/16 01/10/16 01/10/16 01/11/16 01/11/16 01/11/16 06:59 14:59 22:59 06:59 14:59 22:59 Intake Total 600 ml 680 ml 240 ml 240 ml Output Total 800 ml 1300 ml 800 ml 1200 ml Balance -200 ml -620 ml -560 ml -960 ml Intake Oral 600 ml 680 ml 240 ml 240 ml IV Total 0 ml 0 ml Output Urine Total 800 ml 1300 ml 800 ml 1200 ml # Bowel Movements 0 1 1 Objective Remarks LLE: morbidly obese. +cap refill. anterior leg wounds granulated in well and healing appropriately. posterior thigh wound directly in skin fold. no purulence. dry dressing present Assessment & Plan Assessment and Plan 1) Left Distal femur Fx s/p ORIF on 10/11/15 - 13w1d -NWB -PT for ROM of knee and ankle 2) Spinal Fx - Dr Herbert to manage 3) Left Tibia wounds 4) Left Posterior Thigh wound -daily dressing changes with xeroform/4x4/HAYLEY or primapore/tape -will proceed with CT scan of left femur and spine today. patient agreeable. further PT instructions to follow depending on CT scan results of knee Lewis Carey Jan 11, 2016 06:50
[2016-01-11 08:00] VITALS: BP 138/63; PULSE 80; RESP 16; TEMP 98; O2SAT 96
[2016-01-11] MEDS: MULTIVITAMINS/IRON/MINERALS CHEWABLE TAB CHEW SCH (09:08)
[2016-01-11] MEDS: HYDROmorphone HCL 4 MG TAB PO PRN (09:08)
[2016-01-11] MEDS: FAMOTIDINE 20 MG TAB PO SCH ×2 (09:08→21:43)
[2016-01-11] MEDS: NYSTATIN 100,000 U/GM PWD 15 GM BTL TOPICAL SCH ×3 (09:09→21:43)
[2016-01-11] MEDS: METOPROLOL TARTRATE 25 MG TAB PO SCH ×2 (09:09→21:43)
[2016-01-11] MEDS: ARTIFICIAL TEARS OPTH SOLN 15 ML BTL EACH EYE SCH ×3 (09:09→15:29)
[2016-01-11] MEDS: DOCUSATE SODIUM 50 MG/SENNA 8.6 MG TAB PO SCH ×2 (09:09→21:43)
[2016-01-11 12:00] VITALS: BP 130/68; PULSE 91; RESP 16; TEMP 98.4; O2SAT 94
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
--- NOTE | 2016-01-11 15:09 | RADRPT ---
EXAM DATE/TIME: 01/11/2016 14:16 [facility] COMPARISON: KNEE LEFT LTD (1 OR 2VWS), November 18, 2015, 9:53. KNEE LEFT COMPLETE (4VWS), December 06, 2015, 10 :09. KNEE LEFT LTD (1 OR 2VWS), December 27, 2015, 9:19. INDICATIONS : Follow up fracture. RADIATION DOSE: 33.27 CTDIvol (mGy) MEDICAL HISTORY : None SURGICAL HISTORY : None. ENCOUNTER: Initial ACUITY: 3 months PAIN SCALE: 5/10 LOCATION: Left knee TECHNIQUE: Volumetric scanning of the knee was performed. Using automated exposure control and adjustment of th e mA and/or kV according to patient size, radiation dose was kept as low as reasonably achievable to obtain optimal diagnostic quality images. FINDINGS: BONES: Post surgical changes are identified in the distal left femur following open reduction and internal f ixation of a distal femoral fracture extending into the condylar region. Next medullary plate has bee n placed along the lateral aspect of the femur. There are multiple stabilization screws along the sha ft of the distal femur and through the condylar region of the femur. Compared to the most recent plai n radiographs there is no change in fracture alignment. There is no evidence of significant healing c allus at this time. JOINTS: No evidence of joint narrowing or effusion. SOFT TISSUES: No evidence of abnormal fluid collections or hematoma. CONCLUSION: Status post ORIF of the distal left femur. Stable position of fracture fragments No evidence of significant healing callus No evidence of soft tissue hematoma or abnormal fluid collections. Sigifredo Oviedo MD on January 11, 2016 at 14:57 Board Certified Radiologist. This report was verified electronically.
--- NOTE | 2016-01-11 15:18 | RADRPT ---
EXAM DATE/TIME: 01/11/2016 14:23 [place] COMPARISON: CT LUMBAR SPINE W/O CONTRAST, November 10, 2015, 9:35. CT THORACIC SPINE W/ O CONTRAST, November 10, 2015, 9:35. INDICATIONS : Follow up fracture. RADIATION DOSE: 46.27 CTDIvol (mGy) MEDICAL HISTORY : None SURGICAL HISTORY : None. ENCOUNTER: Initial ACUITY: 3 months PAIN SCALE: 6/10 LOCATION: Thoracic spine TECHNIQUE: Volumetric scanning of the thoracic spine was performed. Multiplanar reconstructions in the sagittal, coronal and oblique axial planes were performed. Using automated exposure control a nd adjustment of the mA and/or kV according to patient size, radiation dose was kept as low as reason ably achievable to obtain optimal diagnostic quality images. FINDINGS: The T9 fracture involving the superior endplate continues to demonstrate evidence of healing. The fra cture line is no longer evident. Thoracic vertebral bodies are otherwise stable. Posterior elements are intact. Prominent posterior osteophyte disc complex at T12-L1 continues to demonstrate evidence of moderate s homar stenosis. CONCLUSION: Continued healing of T9 compression fracture. Otherwise stable thoracic spine. Prominent osteophyte disc complex at T12-L1 causing moderate central spinal stenosis is again noted. Small bilateral effusions are noted. Sigifredo Oviedo MD on January 11, 2016 at 15:07 Board Certified Radiologist. This report was verified electronically.
[2016-01-11 16:00] VITALS: BP 141/72; PULSE 84; RESP 16; TEMP 98.4; O2SAT 96
[2016-01-11 20:00] VITALS: BP 129/72; PULSE 88; RESP 18; TEMP 96.2; O2SAT 96
[2016-01-12] VITALS: BP 138/71; PULSE 79; RESP 18; TEMP 98.7; O2SAT 97
[2016-01-12] MEDS: CHLORHEXIDINE GLUCONATE 2 % 1 PACK (2 CLOTHS) TOP SCH (04:00)
[2016-01-12] MEDS: ENOXAPARIN SODIUM 60 MG/0.6 ML SYRINGE SQ SCH ×2 (04:21→16:04)
[2016-01-12 08:06] VITALS: BP 133/81; PULSE 99; RESP 17; TEMP 97.8; O2SAT 93
[2016-01-12] MEDS: FAMOTIDINE 20 MG TAB PO SCH ×2 (09:55→21:41)
[2016-01-12] MEDS: MULTIVITAMINS/IRON/MINERALS CHEWABLE TAB CHEW SCH (09:55)
[2016-01-12] MEDS: DOCUSATE SODIUM 50 MG/SENNA 8.6 MG TAB PO SCH ×2 (09:55→21:41)
[2016-01-12] MEDS: NYSTATIN 100,000 U/GM PWD 15 GM BTL TOPICAL SCH ×2 (09:56→21:41)
[2016-01-12] MEDS: ARTIFICIAL TEARS OPTH SOLN 15 ML BTL EACH EYE SCH ×3 (09:56→17:35)
[2016-01-12] MEDS: METOPROLOL TARTRATE 25 MG TAB PO SCH ×2 (09:59→21:41)
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
[2016-01-12 11:54] VITALS: BP 136/78; PULSE 92; RESP 18; TEMP 98.1; O2SAT 95
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
[2016-01-12] MEDS: HYDROmorphone HCL 4 MG TAB PO PRN (16:04)
[2016-01-12 20:01] VITALS: BP 119/80; PULSE 94; RESP 18; TEMP 96.9; O2SAT 96
[2016-01-13 00:01] VITALS: BP 121/71; PULSE 78; RESP 18; TEMP 96.2; O2SAT 96
[2016-01-13] MEDS: CHLORHEXIDINE GLUCONATE 2 % 1 PACK (2 CLOTHS) TOP SCH (04:00)
[2016-01-13] MEDS: ENOXAPARIN SODIUM 60 MG/0.6 ML SYRINGE SQ SCH ×2 (04:51→16:24)
[2016-01-13] MEDS: MULTIVITAMINS/IRON/MINERALS CHEWABLE TAB CHEW SCH (11:15)
[2016-01-13] MEDS: FAMOTIDINE 20 MG TAB PO SCH ×2 (11:15→19:47)
[2016-01-13] MEDS: METOPROLOL TARTRATE 25 MG TAB PO SCH ×2 (11:15→19:46)
[2016-01-13] MEDS: DOCUSATE SODIUM 50 MG/SENNA 8.6 MG TAB PO SCH ×2 (11:15→19:47)
[2016-01-13] MEDS: ARTIFICIAL TEARS OPTH SOLN 15 ML BTL EACH EYE SCH ×3 (11:16→16:24)
[2016-01-13] MEDS: NYSTATIN 100,000 U/GM PWD 15 GM BTL TOPICAL SCH ×2 (11:17→19:47)
[2016-01-13 12:00] VITALS: BP 130/80; PULSE 78; RESP 21; TEMP 97.7; O2SAT 97
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
[2016-01-13 16:00] VITALS: BP 133/76; PULSE 72; RESP 19; TEMP 97.7; O2SAT 97
[2016-01-13 20:01] VITALS: BP 160/90; PULSE 89; RESP 20; TEMP 97.2; O2SAT 96
[2016-01-14 00:01] VITALS: BP 142/79; PULSE 78; RESP 20; TEMP 97.8; O2SAT 97
[2016-01-14] MEDS: CHLORHEXIDINE GLUCONATE 2 % 1 PACK (2 CLOTHS) TOP SCH (04:00)
[2016-01-14] MEDS: ENOXAPARIN SODIUM 60 MG/0.6 ML SYRINGE SQ SCH ×2 (04:54→14:43)
[2016-01-14 08:00] VITALS: BP 136/82; PULSE 115; RESP 20; TEMP 97.4; O2SAT 96
[2016-01-14] MEDS: EUCERIN CREAM 120 GM JAR TOPICAL SCH (08:31)
[2016-01-14] MEDS: HYDROmorphone HCL 4 MG TAB PO PRN ×2 (08:31→18:10)
[2016-01-14] MEDS: FAMOTIDINE 20 MG TAB PO SCH ×2 (08:32→21:41)
[2016-01-14] MEDS: NYSTATIN 100,000 U/GM PWD 15 GM BTL TOPICAL SCH ×2 (08:32→21:00)
[2016-01-14] MEDS: MULTIVITAMINS/IRON/MINERALS CHEWABLE TAB CHEW SCH (08:32)
[2016-01-14] MEDS: DOCUSATE SODIUM 50 MG/SENNA 8.6 MG TAB PO SCH ×2 (08:32→21:42)
[2016-01-14] MEDS: METOPROLOL TARTRATE 25 MG TAB PO SCH ×2 (08:32→21:42)
[2016-01-14] MEDS: ARTIFICIAL TEARS OPTH SOLN 15 ML BTL EACH EYE SCH ×3 (08:32→16:01)
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
[2016-01-14 12:00] VITALS: BP 125/68; PULSE 107; RESP 16; TEMP 97.3; O2SAT 96
[2016-01-14 15:34] VITALS: BP 115/64; PULSE 85; RESP 14; TEMP 97.6; O2SAT 94
[2016-01-14 20:00] VITALS: BP 129/74; PULSE 100; RESP 19; TEMP 98.6; O2SAT 97
[2016-01-15] VITALS: BP 118/68; PULSE 84; RESP 18; TEMP 98.6; O2SAT 96
[2016-01-15] MEDS: CHLORHEXIDINE GLUCONATE 2 % 1 PACK (2 CLOTHS) TOP SCH ×2 (04:00→20:05)
[2016-01-15] MEDS: ENOXAPARIN SODIUM 60 MG/0.6 ML SYRINGE SQ SCH ×2 (04:42→15:13)
[2016-01-15 08:00] VITALS: BP 113/74; PULSE 102; RESP 14; TEMP 96; O2SAT 99
[2016-01-15] MEDS: DOCUSATE SODIUM 50 MG/SENNA 8.6 MG TAB PO SCH ×2 (08:25→20:05)
[2016-01-15] MEDS: METOPROLOL TARTRATE 25 MG TAB PO SCH ×2 (08:25→20:05)
[2016-01-15] MEDS: MULTIVITAMINS/IRON/MINERALS CHEWABLE TAB CHEW SCH (08:25)
[2016-01-15] MEDS: FAMOTIDINE 20 MG TAB PO SCH ×2 (08:25→20:05)
[2016-01-15] MEDS: EUCERIN CREAM 120 GM JAR TOPICAL SCH (08:26)
[2016-01-15] MEDS: ARTIFICIAL TEARS OPTH SOLN 15 ML BTL EACH EYE SCH ×3 (08:26→17:02)
[2016-01-15] MEDS: NYSTATIN 100,000 U/GM PWD 15 GM BTL TOPICAL SCH ×2 (08:31→20:05)
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
[2016-01-15 12:00] VITALS: BP 124/61; PULSE 76; RESP 17; TEMP 97.8; O2SAT 95
[2016-01-15 16:00] VITALS: BP 133/90; PULSE 85; RESP 16; TEMP 97.2; O2SAT 97
[2016-01-15 20:00] VITALS: BP 129/74; PULSE 115; RESP 18; TEMP 97.6; O2SAT 96
[2016-01-16] VITALS: BP 128/80; PULSE 81; RESP 19; TEMP 98.4; O2SAT 96
[2016-01-16] MEDS: ENOXAPARIN SODIUM 60 MG/0.6 ML SYRINGE SQ SCH ×2 (03:07→16:00)
[2016-01-16 08:00] VITALS: BP 129/75; PULSE 86; RESP 18; TEMP 97.6; O2SAT 98
[2016-01-16] MEDS: METOPROLOL TARTRATE 25 MG TAB PO SCH ×2 (08:51→21:59)
[2016-01-16] MEDS: FAMOTIDINE 20 MG TAB PO SCH ×2 (08:51→21:59)
[2016-01-16] MEDS: CALCIUM/VITAMIN D 250 MG/125 U TAB PO SCH ×2 (08:51→21:59)
[2016-01-16] MEDS: MULTIVITAMINS/IRON/MINERALS CHEWABLE TAB CHEW SCH (08:51)
[2016-01-16] MEDS: DOCUSATE SODIUM 50 MG/SENNA 8.6 MG TAB PO SCH ×2 (08:52→21:59)
[2016-01-16] MEDS: NYSTATIN 100,000 U/GM PWD 15 GM BTL TOPICAL SCH ×2 (08:53→22:00)
[2016-01-16] MEDS: ARTIFICIAL TEARS OPTH SOLN 15 ML BTL EACH EYE SCH ×3 (08:53→18:00)
[2016-01-16] MEDS: EUCERIN CREAM 120 GM JAR TOPICAL SCH (08:54)
[2016-01-16] MEDS: ERGOCALCIFEROL (VIT D2) 50,000 UNIT CAP PO SCH (09:04)
[2016-01-16 12:00] VITALS: BP 133/73; PULSE 78; RESP 17; TEMP 97.5; O2SAT 95
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
[2016-01-16 16:05] VITALS: BP 135/77; PULSE 87; RESP 17; TEMP 97.7; O2SAT 96
[2016-01-16 20:00] VITALS: BP 136/81; PULSE 83; RESP 21; TEMP 96.8; O2SAT 96
[2016-01-17] VITALS: BP 144/80; PULSE 97; RESP 21; TEMP 98.2; O2SAT 100
[2016-01-17] MEDS: CHLORHEXIDINE GLUCONATE 2 % 1 PACK (2 CLOTHS) TOP SCH (04:00)
[2016-01-17] MEDS: ENOXAPARIN SODIUM 60 MG/0.6 ML SYRINGE SQ SCH ×2 (04:05→15:35)
[2016-01-17 08:00] VITALS: BP 132/74; PULSE 73; RESP 17; TEMP 95.9; O2SAT 99
[2016-01-17] MEDS: FAMOTIDINE 20 MG TAB PO SCH ×2 (09:33→21:57)
[2016-01-17] MEDS: DOCUSATE SODIUM 50 MG/SENNA 8.6 MG TAB PO SCH ×2 (09:33→21:58)
[2016-01-17] MEDS: MULTIVITAMINS/IRON/MINERALS CHEWABLE TAB CHEW SCH (09:33)
[2016-01-17] MEDS: CALCIUM/VITAMIN D 250 MG/125 U TAB PO SCH ×2 (09:33→21:57)
[2016-01-17] MEDS: METOPROLOL TARTRATE 25 MG TAB PO SCH ×2 (09:34→21:57)
[2016-01-17] MEDS: ARTIFICIAL TEARS OPTH SOLN 15 ML BTL EACH EYE SCH ×3 (09:34→15:35)
[2016-01-17] MEDS: NYSTATIN 100,000 U/GM PWD 15 GM BTL TOPICAL SCH ×2 (09:34→21:58)
[2016-01-17] MEDS: EUCERIN CREAM 120 GM JAR TOPICAL SCH (09:35)
[2016-01-17 12:00] VITALS: BP 130/80; PULSE 89; RESP 18; TEMP 97.8; O2SAT 95
[2016-01-17 16:00] VITALS: BP 127/73; PULSE 81; RESP 17; TEMP 96.6; O2SAT 97
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
[2016-01-17 20:02] VITALS: BP 140/92; PULSE 88; RESP 18; TEMP 97.5; O2SAT 96
[2016-01-18 00:01] VITALS: BP 134/75; PULSE 81; RESP 18; TEMP 96.7; O2SAT 96
[2016-01-18] MEDS: CHLORHEXIDINE GLUCONATE 2 % 1 PACK (2 CLOTHS) TOP SCH (04:00)
[2016-01-18] MEDS: ENOXAPARIN SODIUM 60 MG/0.6 ML SYRINGE SQ SCH ×2 (04:22→15:47)
[2016-01-18 08:00] VITALS: BP 142/93; PULSE 88; RESP 20; TEMP 97.5; O2SAT 98
--- NOTE | 2016-01-18 09:46 | PD.ORT.PN ---
Subjective Subjective Remarks Resting comfortably Objective Vitals Vital Signs Date Time Temp Pulse Resp B/P Pulse Ox O2 Delivery O2 Flow Rate FiO2 01/18/16 08:00 97.5 88 20 142/93 98 01/18/16 00:01 96.7 81 18 134/75 96 01/17/16 20:02 97.5 88 18 140/92 96 01/17/16 16:00 96.6 81 17 127/73 97 01/17/16 12:00 97.8 89 18 130/80 95 I/O 01/17/16 01/17/16 01/17/16 01/18/16 01/18/16 01/18/16 07:00 15:00 23:00 07:00 15:00 23:00 Intake Total 360 ml 1200 ml 320 ml 240 ml Output Total 1600 ml 1300 ml 250 ml 450 ml Balance -1240 ml -100 ml 70 ml -210 ml Intake Oral 360 ml 1200 ml 320 ml 240 ml Output Urine Total 1600 ml 1300 ml 250 ml 450 ml # Bowel Movements 0 0 0 0 Objective Remarks LLE: morbidly obese. +cap refill. anterior leg wounds granulated in well and healing appropriately. posterior thigh wound directly in skin fold. no purulence. dry dressing present Assessment & Plan Assessment and Plan 1) Left Distal femur Fx s/p ORIF on 10/11/15 -NWB CT shows only minimal bone callus formation -PT for ROM of knee and ankle 2) Spinal Fx - Dr Herbert to manage 3) Left Tibia wounds 4) Left Posterior Thigh wound -daily dressing changes with xeroform/4x4/HAYLEY or primapore/tape -will proceed with CT scan of left femur and spine today. patient agreeable. further PT instructions to follow depending on CT scan results of knee KELSIE BRAGA PA-C Jan 18, 2016 09:46
[2016-01-18] MEDS: DOCUSATE SODIUM 50 MG/SENNA 8.6 MG TAB PO SCH ×2 (10:06→23:57)
[2016-01-18] MEDS: METOPROLOL TARTRATE 25 MG TAB PO SCH ×2 (10:06→23:57)
[2016-01-18] MEDS: MULTIVITAMINS/IRON/MINERALS CHEWABLE TAB CHEW SCH (10:06)
[2016-01-18] MEDS: CALCIUM/VITAMIN D 250 MG/125 U TAB PO SCH ×2 (10:06→23:57)
[2016-01-18] MEDS: FAMOTIDINE 20 MG TAB PO SCH ×2 (10:06→23:57)
[2016-01-18] MEDS: HYDROmorphone HCL 4 MG TAB PO PRN ×2 (10:07→15:47)
[2016-01-18] MEDS: ARTIFICIAL TEARS OPTH SOLN 15 ML BTL EACH EYE SCH ×3 (10:07→17:25)
[2016-01-18] MEDS: NYSTATIN 100,000 U/GM PWD 15 GM BTL TOPICAL SCH ×2 (10:08→21:00)
[2016-01-18] MEDS: EUCERIN CREAM 120 GM JAR TOPICAL SCH (10:08)
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
[2016-01-18 16:00] VITALS: BP 136/64; PULSE 64; RESP 16; TEMP 96.9; O2SAT 98
[2016-01-18 20:01] VITALS: BP 142/84; PULSE 98; RESP 22; TEMP 97.8; O2SAT 96
[2016-01-18 22:01] VITALS: BP 142/84; PULSE 98; RESP 22; TEMP 97.8; O2SAT 96
[2016-01-19 00:01] VITALS: BP 140/70; PULSE 86; RESP 20; TEMP 97.7; O2SAT 95
[2016-01-19] MEDS: CHLORHEXIDINE GLUCONATE 2 % 1 PACK (2 CLOTHS) TOP SCH (04:00)
[2016-01-19] MEDS: ENOXAPARIN SODIUM 60 MG/0.6 ML SYRINGE SQ SCH ×2 (05:11→15:43)
[2016-01-19 08:00] VITALS: BP 136/70; PULSE 92; RESP 19; TEMP 96.9; O2SAT 96
[2016-01-19] MEDS: DOCUSATE SODIUM 50 MG/SENNA 8.6 MG TAB PO SCH ×2 (09:00→21:00)
[2016-01-19] MEDS: METOPROLOL TARTRATE 25 MG TAB PO SCH ×2 (09:10→21:00)
[2016-01-19] MEDS: DOCUSATE SODIUM 50 MG/SENNA 8.6 MG TAB PO PRN (09:10)
[2016-01-19] MEDS: MULTIVITAMINS/IRON/MINERALS CHEWABLE TAB CHEW SCH (09:10)
[2016-01-19] MEDS: FAMOTIDINE 20 MG TAB PO SCH ×2 (09:10→21:00)
[2016-01-19] MEDS: CALCIUM/VITAMIN D 250 MG/125 U TAB PO SCH ×2 (09:10→21:00)
[2016-01-19] MEDS: ARTIFICIAL TEARS OPTH SOLN 15 ML BTL EACH EYE SCH ×3 (09:12→15:45)
[2016-01-19] MEDS: NYSTATIN 100,000 U/GM PWD 15 GM BTL TOPICAL SCH ×2 (09:12→21:00)
[2016-01-19] MEDS: EUCERIN CREAM 120 GM JAR TOPICAL SCH (09:12)
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
[2016-01-19 20:00] VITALS: BP 107/82; PULSE 97; RESP 18; TEMP 97.6; O2SAT 97
[2016-01-20 00:04] VITALS: BP 110/84; PULSE 79; RESP 20; TEMP 98.6; O2SAT 95
[2016-01-20] MEDS: CHLORHEXIDINE GLUCONATE 2 % 1 PACK (2 CLOTHS) TOP SCH (04:00)
[2016-01-20] MEDS: ENOXAPARIN SODIUM 60 MG/0.6 ML SYRINGE SQ SCH ×2 (05:52→15:31)
[2016-01-20 08:00] VITALS: BP 108/71; PULSE 77; RESP 18; TEMP 97.2; O2SAT 93
[2016-01-20] MEDS: FAMOTIDINE 20 MG TAB PO SCH ×2 (08:04→21:26)
[2016-01-20] MEDS: CALCIUM/VITAMIN D 250 MG/125 U TAB PO SCH ×2 (08:04→21:26)
[2016-01-20] MEDS: NYSTATIN 100,000 U/GM PWD 15 GM BTL TOPICAL SCH ×2 (08:04→21:28)
[2016-01-20] MEDS: METOPROLOL TARTRATE 25 MG TAB PO SCH ×2 (08:04→21:26)
[2016-01-20] MEDS: MULTIVITAMINS/IRON/MINERALS CHEWABLE TAB CHEW SCH (08:04)
[2016-01-20] MEDS: DOCUSATE SODIUM 50 MG/SENNA 8.6 MG TAB PO SCH ×2 (08:04→21:26)
[2016-01-20] MEDS: ARTIFICIAL TEARS OPTH SOLN 15 ML BTL EACH EYE SCH ×3 (08:06→16:30)
[2016-01-20 12:00] VITALS: BP 137/81; PULSE 80; RESP 20; TEMP 97; O2SAT 95
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
[2016-01-20 16:00] VITALS: BP 122/77; PULSE 97; RESP 20; TEMP 96.9; O2SAT 95
[2016-01-20 20:00] VITALS: BP 121/80; PULSE 108; RESP 20; TEMP 97.4; O2SAT 97
[2016-01-20] MEDS: DOCUSATE SODIUM 50 MG/SENNA 8.6 MG TAB PO PRN (21:25)
[2016-01-21 00:01] VITALS: BP 134/72; PULSE 100; RESP 19; TEMP 97.6; O2SAT 95
[2016-01-21] MEDS: ENOXAPARIN SODIUM 60 MG/0.6 ML SYRINGE SQ SCH ×2 (04:08→14:49)
[2016-01-21] MEDS: CHLORHEXIDINE GLUCONATE 2 % 1 PACK (2 CLOTHS) TOP SCH (04:12)
[2016-01-21 08:00] VITALS: BP 135/77; PULSE 80; RESP 16; TEMP 97.3; O2SAT 99
[2016-01-21] MEDS: FAMOTIDINE 20 MG TAB PO SCH ×2 (08:23→20:40)
[2016-01-21] MEDS: DOCUSATE SODIUM 50 MG/SENNA 8.6 MG TAB PO SCH ×2 (08:23→20:40)
[2016-01-21] MEDS: METOPROLOL TARTRATE 25 MG TAB PO SCH ×2 (08:23→20:40)
[2016-01-21] MEDS: MULTIVITAMINS/IRON/MINERALS CHEWABLE TAB CHEW SCH (08:23)
[2016-01-21] MEDS: CALCIUM/VITAMIN D 250 MG/125 U TAB PO SCH ×2 (08:23→20:40)
[2016-01-21] MEDS: ARTIFICIAL TEARS OPTH SOLN 15 ML BTL EACH EYE SCH ×3 (08:25→15:07)
[2016-01-21] MEDS: NYSTATIN 100,000 U/GM PWD 15 GM BTL TOPICAL SCH ×2 (08:25→20:41)
[2016-01-21 12:00] VITALS: BP 130/80; PULSE 87; RESP 17; TEMP 96.7; O2SAT 98
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
[2016-01-21 15:58] VITALS: BP 133/74; PULSE 96; RESP 17; TEMP 97.8; O2SAT 96
[2016-01-21 20:26] VITALS: BP 129/71; PULSE 85; RESP 20; TEMP 98.3; O2SAT 95
[2016-01-21 23:37] VITALS: BP 139/83; PULSE 82; RESP 20; TEMP 98.4; O2SAT 97
[2016-01-22] MEDS: ENOXAPARIN SODIUM 60 MG/0.6 ML SYRINGE SQ SCH ×2 (03:53→16:08)
[2016-01-22] MEDS: CHLORHEXIDINE GLUCONATE 2 % 1 PACK (2 CLOTHS) TOP SCH ×2 (04:00→21:47)
[2016-01-22 07:58] VITALS: BP 122/66; PULSE 84; RESP 16; TEMP 97.2; O2SAT 95
[2016-01-22] MEDS: FAMOTIDINE 20 MG TAB PO SCH ×3 (10:31→21:56)
[2016-01-22] MEDS: DOCUSATE SODIUM 50 MG/SENNA 8.6 MG TAB PO SCH ×3 (10:31→21:56)
[2016-01-22] MEDS: MULTIVITAMINS/IRON/MINERALS CHEWABLE TAB CHEW SCH (10:31)
[2016-01-22] MEDS: ARTIFICIAL TEARS OPTH SOLN 15 ML BTL EACH EYE SCH ×3 (10:32→16:08)
[2016-01-22] MEDS: CALCIUM/VITAMIN D 250 MG/125 U TAB PO SCH ×3 (10:32→21:56)
[2016-01-22] MEDS: NYSTATIN 100,000 U/GM PWD 15 GM BTL TOPICAL SCH ×2 (10:32→21:46)
[2016-01-22] MEDS: METOPROLOL TARTRATE 25 MG TAB PO SCH ×3 (10:32→21:56)
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
[2016-01-22 12:00] VITALS: BP 123/69; PULSE 85; RESP 17; TEMP 97.4; O2SAT 96
[2016-01-22 16:00] VITALS: BP 117/74; PULSE 84; RESP 17; TEMP 98.2; O2SAT 95
[2016-01-22 20:21] VITALS: BP 136/77; PULSE 85; RESP 20; TEMP 97.1; O2SAT 98
[2016-01-22 23:51] VITALS: BP 140/72; PULSE 80; RESP 18; TEMP 98; O2SAT 97
[2016-01-23] MEDS: ENOXAPARIN SODIUM 60 MG/0.6 ML SYRINGE SQ SCH ×2 (03:57→16:04)
[2016-01-23] MEDS: ERGOCALCIFEROL (VIT D2) 50,000 UNIT CAP PO SCH (07:46)
[2016-01-23] MEDS: DOCUSATE SODIUM 50 MG/SENNA 8.6 MG TAB PO SCH ×2 (07:46→20:39)
[2016-01-23] MEDS: METOPROLOL TARTRATE 25 MG TAB PO SCH ×2 (07:46→20:39)
[2016-01-23] MEDS: FAMOTIDINE 20 MG TAB PO SCH ×2 (07:46→20:39)
[2016-01-23] MEDS: MULTIVITAMINS/IRON/MINERALS CHEWABLE TAB CHEW SCH (07:46)
[2016-01-23] MEDS: CALCIUM/VITAMIN D 250 MG/125 U TAB PO SCH ×2 (07:46→20:39)
[2016-01-23] MEDS: NYSTATIN 100,000 U/GM PWD 15 GM BTL TOPICAL SCH ×2 (07:46→20:40)
[2016-01-23] MEDS: ARTIFICIAL TEARS OPTH SOLN 15 ML BTL EACH EYE SCH ×3 (07:47→16:04)
[2016-01-23 08:25] VITALS: BP 158/84; PULSE 73; RESP 20; TEMP 98.5; O2SAT 96
[2016-01-23 11:17] VITALS: BP 134/79; PULSE 75; RESP 20; TEMP 98; O2SAT 97
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
[2016-01-23 16:05] VITALS: BP 119/75; PULSE 104; RESP 19; TEMP 96.9; O2SAT 96
[2016-01-23 20:00] VITALS: BP 141/90; PULSE 106; RESP 20; TEMP 98.9; O2SAT 97
[2016-01-24] VITALS: BP 151/79; PULSE 83; RESP 20; TEMP 98.7; O2SAT 96
[2016-01-24] MEDS: CHLORHEXIDINE GLUCONATE 2 % 1 PACK (2 CLOTHS) TOP SCH (04:00)
[2016-01-24] MEDS: ENOXAPARIN SODIUM 60 MG/0.6 ML SYRINGE SQ SCH ×2 (04:31→16:20)
--- NOTE | 2016-01-24 06:39 | PD.ORT.PN ---
Subjective Subjective Remarks s/p ORIF left distal femur fx on 10/11/15 (14wks 0d) reports doing well. no pain. no changes. Objective Vitals Vital Signs Date Time Temp Pulse Resp B/P Pulse Ox O2 Delivery O2 Flow Rate FiO2 01/24/16 00:00 98.7 83 20 151/79 96 01/23/16 20:00 98.9 106 20 141/90 97 01/23/16 16:05 96.9 104 19 119/75 96 01/23/16 11:17 98.0 75 20 134/79 97 01/23/16 08:25 98.5 73 20 158/84 96 I/O 01/23/16 01/23/16 01/23/16 01/24/16 01/24/16 01/24/16 06:59 14:59 22:59 06:59 14:59 22:59 Intake Total 360 ml 1080 ml 960 ml 720 ml Output Total 500 ml 1200 ml 700 ml 900 ml Balance -140 ml -120 ml 260 ml -180 ml Intake Oral 360 ml 1080 ml 960 ml 720 ml Output Urine Total 500 ml 1200 ml 700 ml 900 ml # Bowel Movements 0 Objective Remarks LLE: morbidly obese. +cap refill. anterior leg wounds granulated in well and healing appropriately. posterior thigh wound directly in skin fold. no purulence. dry dressing present Assessment & Plan Assessment and Plan 1) Left Distal femur Fx s/p ORIF on 10/11/15 -NWB CT shows only minimal bone callus formation -PT for ROM of knee and ankle 2) Spinal Fx - Dr Herbert to manage 3) Left Tibia wounds 4) Left Posterior Thigh wound -daily dressing changes with xeroform/4x4/HAYLEY or primapore/tape -will proceed with CT scan of left femur and spine today. patient agreeable. further PT instructions to follow depending on CT scan results of knee Lewis Carey Jan 24, 2016 06:39
[2016-01-24] MEDS: NYSTATIN 100,000 U/GM PWD 15 GM BTL TOPICAL SCH ×2 (07:36→21:11)
[2016-01-24] MEDS: FAMOTIDINE 20 MG TAB PO SCH ×2 (07:36→21:10)
[2016-01-24] MEDS: CALCIUM/VITAMIN D 250 MG/125 U TAB PO SCH ×2 (07:36→21:10)
[2016-01-24] MEDS: MULTIVITAMINS/IRON/MINERALS CHEWABLE TAB CHEW SCH (07:36)
[2016-01-24] MEDS: ARTIFICIAL TEARS OPTH SOLN 15 ML BTL EACH EYE SCH ×3 (07:36→16:42)
[2016-01-24] MEDS: DOCUSATE SODIUM 50 MG/SENNA 8.6 MG TAB PO SCH ×2 (07:36→21:10)
[2016-01-24] MEDS: METOPROLOL TARTRATE 25 MG TAB PO SCH ×2 (07:36→21:10)
[2016-01-24 08:00] VITALS: BP 144/80; PULSE 75; RESP 18; TEMP 96.9; O2SAT 98
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
[2016-01-24 12:00] VITALS: BP 139/76; PULSE 87; RESP 20; TEMP 96.8; O2SAT 96
[2016-01-24 16:00] VITALS: BP 162/97; PULSE 90; RESP 20; TEMP 97.2; O2SAT 96
[2016-01-24 20:00] VITALS: BP 131/70; PULSE 88; RESP 21; TEMP 96.8; O2SAT 94
[2016-01-25] VITALS: BP 141/78; PULSE 87; RESP 21; TEMP 96.1; O2SAT 95
[2016-01-25] MEDS: CHLORHEXIDINE GLUCONATE 2 % 1 PACK (2 CLOTHS) TOP SCH (04:00)
[2016-01-25] MEDS: ENOXAPARIN SODIUM 60 MG/0.6 ML SYRINGE SQ SCH ×2 (04:28→16:32)
[2016-01-25 08:00] VITALS: BP 116/68; PULSE 71; RESP 18; TEMP 96.2; O2SAT 97
[2016-01-25] MEDS: DOCUSATE SODIUM 50 MG/SENNA 8.6 MG TAB PO SCH ×2 (09:22→21:12)
[2016-01-25] MEDS: ARTIFICIAL TEARS OPTH SOLN 15 ML BTL EACH EYE SCH ×3 (09:22→16:32)
[2016-01-25] MEDS: NYSTATIN 100,000 U/GM PWD 15 GM BTL TOPICAL SCH ×2 (09:22→21:15)
[2016-01-25] MEDS: METOPROLOL TARTRATE 25 MG TAB PO SCH ×2 (09:22→21:12)
[2016-01-25] MEDS: MULTIVITAMINS/IRON/MINERALS CHEWABLE TAB CHEW SCH (09:22)
[2016-01-25] MEDS: CALCIUM/VITAMIN D 250 MG/125 U TAB PO SCH ×2 (09:22→21:12)
[2016-01-25] MEDS: FAMOTIDINE 20 MG TAB PO SCH ×2 (09:22→21:11)
[2016-01-25 09:34] VITALS: O2SAT 95
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
[2016-01-25 12:00] VITALS: BP 120/80; PULSE 84; RESP 20; TEMP 96.9; O2SAT 95
[2016-01-25 16:00] VITALS: BP 143/81; PULSE 94; RESP 20; TEMP 96.9; O2SAT 95
[2016-01-25 20:00] VITALS: BP 142/86; PULSE 95; RESP 21; TEMP 96.5; O2SAT 93
[2016-01-26] MEDS: ENOXAPARIN SODIUM 60 MG/0.6 ML SYRINGE SQ SCH ×2 (03:54→16:22)
[2016-01-26] MEDS: CHLORHEXIDINE GLUCONATE 2 % 1 PACK (2 CLOTHS) TOP SCH (03:54)
[2016-01-26 08:00] VITALS: BP 144/81; PULSE 95; RESP 19; TEMP 97.7; O2SAT 97
[2016-01-26] MEDS: DOCUSATE SODIUM 50 MG/SENNA 8.6 MG TAB PO SCH ×2 (08:20→20:59)
[2016-01-26] MEDS: CALCIUM/VITAMIN D 250 MG/125 U TAB PO SCH ×2 (08:20→20:57)
[2016-01-26] MEDS: METOPROLOL TARTRATE 25 MG TAB PO SCH ×2 (08:20→20:57)
[2016-01-26] MEDS: FAMOTIDINE 20 MG TAB PO SCH ×2 (08:20→20:57)
[2016-01-26] MEDS: MULTIVITAMINS/IRON/MINERALS CHEWABLE TAB CHEW SCH (08:20)
[2016-01-26] MEDS: NYSTATIN 100,000 U/GM PWD 15 GM BTL TOPICAL SCH ×2 (08:20→20:59)
[2016-01-26] MEDS: ARTIFICIAL TEARS OPTH SOLN 15 ML BTL EACH EYE SCH ×3 (08:21→16:23)
[2016-01-26 12:00] VITALS: BP 137/76; PULSE 81; RESP 18; TEMP 96.7; O2SAT 94
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
[2016-01-26 16:00] VITALS: BP 138/83; PULSE 77; RESP 19; TEMP 95.1; O2SAT 95
[2016-01-26] MEDS: HYDROmorphone HCL 4 MG TAB PO PRN (16:25)
[2016-01-26 20:00] VITALS: BP 136/85; PULSE 104; RESP 20; TEMP 97.5; O2SAT 95
[2016-01-26] MEDS: DOCUSATE SODIUM 50 MG/SENNA 8.6 MG TAB PO PRN (20:57)
[2016-01-27] VITALS: BP 131/79; PULSE 106; RESP 20; TEMP 97.5; O2SAT 96
[2016-01-27] MEDS: ENOXAPARIN SODIUM 60 MG/0.6 ML SYRINGE SQ SCH ×2 (04:08→16:47)
[2016-01-27] MEDS: CHLORHEXIDINE GLUCONATE 2 % 1 PACK (2 CLOTHS) TOP SCH (04:09)
[2016-01-27 08:00] VITALS: BP 124/72; PULSE 69; RESP 17; TEMP 97.4; O2SAT 96
[2016-01-27] MEDS: METOPROLOL TARTRATE 25 MG TAB PO SCH ×2 (09:04→20:03)
[2016-01-27] MEDS: MULTIVITAMINS/IRON/MINERALS CHEWABLE TAB CHEW SCH (09:04)
[2016-01-27] MEDS: CALCIUM/VITAMIN D 250 MG/125 U TAB PO SCH ×2 (09:04→20:04)
[2016-01-27] MEDS: FAMOTIDINE 20 MG TAB PO SCH ×2 (09:04→20:04)
[2016-01-27] MEDS: NYSTATIN 100,000 U/GM PWD 15 GM BTL TOPICAL SCH ×2 (09:05→20:06)
[2016-01-27] MEDS: ARTIFICIAL TEARS OPTH SOLN 15 ML BTL EACH EYE SCH ×3 (09:05→16:48)
[2016-01-27] MEDS: DOCUSATE SODIUM 50 MG/SENNA 8.6 MG TAB PO SCH ×2 (09:05→20:04)
[2016-01-27 12:00] VITALS: BP 132/79; PULSE 78; RESP 17; TEMP 98.1; O2SAT 96
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
[2016-01-27 16:00] VITALS: BP 129/59; PULSE 96; RESP 17; TEMP 96.8; O2SAT 97
[2016-01-27 20:00] VITALS: BP 143/95; PULSE 77; RESP 22; TEMP 97.9; O2SAT 95
--- NOTE | 2016-01-27 23:58 | HHI.NSPN ---
History Chief Complaint: no verbal complaint Interval History 01/11/16 CT scan thoracic spine reveals some bony callous and osteophyte formation along the previous T8 9 fracture subluxation site with reduction of the distraction of the intervertebral disc space and foramen. 01/27/2016: Patient has been sitting on side of the bed with support during physical therapy . System Review Comments Complains of low back pain. No significant thoracic pain. Exam Results Vital Signs Date Time Temp Pulse Resp B/P Pulse Ox O2 Delivery O2 Flow Rate FiO2 01/27/16 22:54 18 01/27/16 20:00 97.9 77 143/95 95 Intake and Output 01/26/16 01/26/16 01/27/16 08:00 16:00 00:00 Intake Total 240 ml 350 ml 480 ml Output Total 1600 ml 700 ml 700 ml Balance -1360 ml -350 ml -220 ml Physical Examination Patient is lying in bed in no acute distress Alert and oriented x 3. Speech is clear. Sensation intact to light touch in upper extremities. Sensation mild to moderately diminished to light touch left greater than right foot Lower extremity motor: Iliopsoas and quadriceps 2+ bilateral; tibialis anterior 3+ right, 3 left; gastrocsoleus 5 right, 4 left Right plantar response neutral Medical Decision Making Impression and Plan Impression: T8-9 fracture with distraction type injury. Patient has some evidence of chronic degenerative changes with anterior osteophyte formation at this level. (Note that the numbering of the thoracic fracture distraction site is different on this radiology imaging report versus previous numbering.) The patient's CT scan of 01/12/16 of the thoracic spine reveals further healing along the fracture site as noted above, with no residual distraction or any subluxation noted. Plan: He seems to be doing reasonably well over the past 2 or 3 days starting to sit on the side of the bed with assistance. No significant thoracic pain. No new lower extremity neurologic symptoms or findings. Continue to mobilize to sitting position as tolerated. Weightbearing deferred to orthopedics. Gilberto Herbert MD Jan 27, 2016 23:58 He appears to understand all the above and wishes to try to begin mobilizing out of bed gradually with therapy. He understands small potential risk of weightbearing in the thoracic spine. He can proceed with gradual tilting of the bed to weightbearing on the lower extremities from a neurosurgical standpoint and can be placed in a sitting position. A brace is not going to be utilized since this will not provide him with any reasonable support due to his size. Gilberto Herbert MD Jan 27, 2016 23:58
[2016-01-28] VITALS: BP 136/80; PULSE 69; RESP 20; TEMP 97.7; O2SAT 95
[2016-01-28] MEDS: CHLORHEXIDINE GLUCONATE 2 % 1 PACK (2 CLOTHS) TOP SCH ×2 (04:00→21:54)
[2016-01-28] MEDS: ENOXAPARIN SODIUM 60 MG/0.6 ML SYRINGE SQ SCH ×3 (04:36→17:04)
[2016-01-28 08:00] VITALS: BP 134/82; PULSE 88; RESP 20; TEMP 98; O2SAT 93
[2016-01-28] MEDS: MULTIVITAMINS/IRON/MINERALS CHEWABLE TAB CHEW SCH (09:17)
[2016-01-28] MEDS: DOCUSATE SODIUM 50 MG/SENNA 8.6 MG TAB PO SCH ×2 (09:17→21:01)
[2016-01-28] MEDS: FAMOTIDINE 20 MG TAB PO SCH ×2 (09:18→21:01)
[2016-01-28] MEDS: CALCIUM/VITAMIN D 250 MG/125 U TAB PO SCH ×2 (09:18→21:01)
[2016-01-28] MEDS: ARTIFICIAL TEARS OPTH SOLN 15 ML BTL EACH EYE SCH ×3 (09:18→16:20)
[2016-01-28] MEDS: METOPROLOL TARTRATE 25 MG TAB PO SCH ×2 (09:18→21:01)
[2016-01-28] MEDS: NYSTATIN 100,000 U/GM PWD 15 GM BTL TOPICAL SCH ×2 (09:18→21:02)
[2016-01-28 12:00] VITALS: BP 130/83; PULSE 86; RESP 19; TEMP 98.2; O2SAT 94
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
[2016-01-28 16:00] VITALS: BP 135/82; PULSE 93; RESP 19; TEMP 98.1; O2SAT 97
[2016-01-28] MEDS: HYDROmorphone HCL 4 MG TAB PO PRN (18:27)
[2016-01-28 20:00] VITALS: BP 140/80; PULSE 98; RESP 21; TEMP 97.6; O2SAT 96
[2016-01-29 00:23] VITALS: BP 139/81; PULSE 80; RESP 21; TEMP 96; O2SAT 96
[2016-01-29] MEDS: ENOXAPARIN SODIUM 60 MG/0.6 ML SYRINGE SQ SCH ×2 (03:57→15:55)
[2016-01-29 08:00] VITALS: BP 132/80; PULSE 90; RESP 20; TEMP 98; O2SAT 97
[2016-01-29] MEDS: DOCUSATE SODIUM 50 MG/SENNA 8.6 MG TAB PO SCH ×2 (08:55→21:20)
[2016-01-29] MEDS: MULTIVITAMINS/IRON/MINERALS CHEWABLE TAB CHEW SCH (08:55)
[2016-01-29] MEDS: FAMOTIDINE 20 MG TAB PO SCH ×2 (08:55→21:20)
[2016-01-29] MEDS: METOPROLOL TARTRATE 25 MG TAB PO SCH ×2 (08:55→21:20)
[2016-01-29] MEDS: ARTIFICIAL TEARS OPTH SOLN 15 ML BTL EACH EYE SCH ×3 (08:56→17:21)
[2016-01-29] MEDS: CALCIUM/VITAMIN D 250 MG/125 U TAB PO SCH ×2 (08:56→21:21)
[2016-01-29] MEDS: NYSTATIN 100,000 U/GM PWD 15 GM BTL TOPICAL SCH ×2 (08:56→21:21)
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
[2016-01-29 12:00] VITALS: BP 128/81; PULSE 74; RESP 18; TEMP 98.6; O2SAT 95
[2016-01-29 16:00] VITALS: BP 130/82; PULSE 74; RESP 19; TEMP 98; O2SAT 96
[2016-01-29 20:00] VITALS: BP 130/80; PULSE 105; RESP 20; TEMP 98.1; O2SAT 92
[2016-01-29] MEDS: diphenhydrAMINE HCL 25 MG CAP PO PRN (21:20)
[2016-01-29] MEDS: HYDROmorphone HCL 4 MG TAB PO PRN (21:20)
[2016-01-30] VITALS: BP 135/77; PULSE 97; RESP 20; TEMP 97.5; O2SAT 94
[2016-01-30] MEDS: CHLORHEXIDINE GLUCONATE 2 % 1 PACK (2 CLOTHS) TOP SCH (04:00)
[2016-01-30] MEDS: ENOXAPARIN SODIUM 60 MG/0.6 ML SYRINGE SQ SCH ×2 (04:31→16:17)
[2016-01-30 08:30] VITALS: BP 136/78; PULSE 73; RESP 19; TEMP 96.7; O2SAT 97
[2016-01-30] MEDS: FAMOTIDINE 20 MG TAB PO SCH ×2 (10:02→21:13)
[2016-01-30] MEDS: ERGOCALCIFEROL (VIT D2) 50,000 UNIT CAP PO SCH (10:02)
[2016-01-30] MEDS: CALCIUM/VITAMIN D 250 MG/125 U TAB PO SCH ×2 (10:02→21:12)
[2016-01-30] MEDS: METOPROLOL TARTRATE 25 MG TAB PO SCH ×2 (10:02→21:13)
[2016-01-30] MEDS: MULTIVITAMINS/IRON/MINERALS CHEWABLE TAB CHEW SCH (10:02)
[2016-01-30] MEDS: DOCUSATE SODIUM 50 MG/SENNA 8.6 MG TAB PO SCH ×2 (10:02→21:12)
[2016-01-30] MEDS: ARTIFICIAL TEARS OPTH SOLN 15 ML BTL EACH EYE SCH ×3 (10:04→16:19)
[2016-01-30] MEDS: NYSTATIN 100,000 U/GM PWD 15 GM BTL TOPICAL SCH ×2 (10:04→21:14)
[2016-01-30 13:01] VITALS: BP 145/85; PULSE 72; RESP 18; TEMP 97; O2SAT 97
--- NOTE | 2016-01-30 14:42 | HHI.PR ---
Subjective Remarks Follow up wounds, pain. The patient has no complaints at this time. Denies chest pain, dyspnea. Objective Vitals Vital Signs Date Time Temp Pulse Resp B/P Pulse Ox O2 Delivery O2 Flow Rate FiO2 01/30/16 13:01 97.0 72 18 145/85 97 01/30/16 08:30 96.7 73 19 136/78 97 01/30/16 00:00 97.5 97 20 135/77 94 01/29/16 20:00 98.1 105 20 130/80 92 01/29/16 16:55 18 01/29/16 16:00 98.0 74 19 130/82 96 I/O 01/29/16 01/29/16 01/29/16 01/30/16 01/30/16 01/30/16 06:59 14:59 22:59 06:59 14:59 22:59 Intake Total 240 ml 800 ml 240 ml 360 ml Output Total 1000 ml 1800 ml 1000 ml 1000 ml 775 ml Balance -760 ml -1000 ml -760 ml -640 ml -775 ml Intake Oral 240 ml 800 ml 240 ml 360 ml IV Total 0 ml 0 ml Output Urine Total 1000 ml 1800 ml 1000 ml 1000 ml 775 ml # Bowel Movements 0 0 0 Imaging Last Impressions Thoracic Spine CT 01/11/16 0800 Signed Impressions: Service Date/Time: Monday, January 11, 2016 14:23 - CONCLUSION: Continued healing of T9 compression fracture. Otherwise stable thoracic spine. Prominent osteophyte disc complex at T12-L1 causing moderate central spinal stenosis is again noted. Small bilateral effusions are noted. Sigifredo Oviedo MD Lower Extremity CT 01/11/16 0800 Signed Impressions: Service Date/Time: Monday, January 11, 2016 14:16 - CONCLUSION: Status post ORIF of the distal left femur. Stable position of fracture fragments No evidence of significant healing callus No evidence of soft tissue hematoma or abnormal fluid collections. Sigifredo Oviedo MD Knee X-Ray 12/27/15 0000 Signed Impressions: Service Date/Time: Sunday, December 27, 2015 09:19 - CONCLUSION: 1. There is no evidence of acute fracture. Gregory Jolly MD Lower Extremity Ultrasound 11/14/15 0000 Signed Impressions: Service Date/Time: Saturday, November 14, 2015 19:13 - CONCLUSION: No DVT right lower extremity. Andrei Pérez MD Lumbar Spine CT 11/10/15 0000 Signed Impressions: Service Date/Time: October 09:35 - CONCLUSION: Stable lumbar spine and alignment without evidence of acute fracture. Moderate size posterior osteophyte disc complex at T12-L1 causing moderate central spinal stenosis. Sigifredo Oviedo MD Chest X-Ray 10/17/15 0000 Signed Impressions: Service Date/Time: Saturday, October 17, 2015 08:21 - CONCLUSION: Bilateral airspace opacities persist without significant change. Andrei Pérez MD IVC Filter Placement X-Ray 10/11/15 0000 Signed Impressions: Service Date/Time: Sunday, October 11, 2015 09:30 - CONCLUSION: Uncomplicated inferior vena cava filter placement as above. Andrei Alva MD Hand X-Ray 10/08/15 0000 Signed Impressions: Service Date/Time: Thursday, October 08, 2015 05:22 - CONCLUSION: Debris within the soft tissues of the proximal fourth digit. John Mcdonald MD Objective Remarks General: Morbidly obese male in no acute distress. Heart: Regular rate and rhythm. No murmur. Lungs: Clear to auscultation bilaterally. No wheezes, rales, or rhonchi. Breathing is nonlabored. Abdomen: Soft, nontender, nondistended. Extremities: 2+ bilateral lower extremity edema with venous stasis changes. Dry/ peeling skin on feet. Psych: Alert and oriented. Procedures ORIF left lower extremity IVC filter Urinary Catheter: Yes Assessment to: Continue Date of Insertion: Jan 03, 2016 A/P Problem List: (1) Trauma ICD Code: T14.90 Status: Acute (2) T9 vertebral fracture ICD Code: S22.079A Status: Acute (3) Extensor tendon laceration, hand, open wound ICD Code: S66.829A Status: Acute (4) Closed fracture of left distal femur ICD Code: S72.402A Status: Acute Assessment and Plan 1. Left lower extremity distal femur fracture: Status post ORIF on 10/11/15. Nonweightbearing to left lower extremity. CT of the left lower extremity on showed "no significant healing callus". Appreciate orthopedic surgery recommendations. 2. Intermittent tachycardia: Secondary to pain, activity. Patient otherwise asymptomatic. EKG showed sinus tachycardia with PVCs. Echocardiogram unremarkable. Continue Lopressor. 3. T9 vertebral body fracture: Patient has declined surgery. He had initially been transferred to [facility] for thoracic spine surgery, but it was not completed reportedly because they could not support his weight. Repeat CT of the thoracic spine on 01/18/16 showed continued healing. Appreciate neurosurgery recommendations. Patient can sit on the edge of the bed without a brace per neurosurgery. 4. Right fourth finger extensor tendon laceration: Patient has been evaluated by Dr. Phelps, who recommended surgery. Patient apparently refused surgery. 5. Foreign body, left fourth digit: Patient refusing surgical intervention. 6. Left lower extremity thigh wound: Healing well. Continue local wound care. 7. GI prophylaxis: Pepcid. 8. Bowel regimen: Senna, lactulose, MiraLAX, Dulcolax. 9. DVT prophylaxis: Lovenox. Discharge Planning No safe discharge plan at this time. The patient will likely be discharged home when he is able to ambulate. He is currently nonweightbearing secondary to left distal femur fracture. Problem Qualifiers (1) T9 vertebral fracture: Nghia Hung MD Jan 30, 2016 14:42
[2016-01-30 16:30] VITALS: BP 168/88; PULSE 78; RESP 18; TEMP 96.5; O2SAT 98
[2016-01-30 20:00] VITALS: BP 136/79; PULSE 97; RESP 16; TEMP 96.5; O2SAT 97
[2016-01-31] VITALS: BP 117/75; PULSE 90; RESP 18; TEMP 98.1; O2SAT 97
[2016-01-31] MEDS: CHLORHEXIDINE GLUCONATE 2 % 1 PACK (2 CLOTHS) TOP SCH (04:00)
[2016-01-31] MEDS: ENOXAPARIN SODIUM 60 MG/0.6 ML SYRINGE SQ SCH ×2 (04:43→16:29)
[2016-01-31 07:57] VITALS: BP 119/78; PULSE 89; RESP 20; TEMP 96.9; O2SAT 95
[2016-01-31 08:00] VITALS: BP_SYST 119; BP_SYST 138; BP_DIAS 70; BP_DIAS 78; PULSE 81; PULSE 89; RESP 19; RESP 20; TEMP 96.9; TEMP 97.8; O2SAT 95; O2SAT 99
[2016-01-31] MEDS: NYSTATIN 100,000 U/GM PWD 15 GM BTL TOPICAL SCH ×2 (09:22→20:04)
[2016-01-31] MEDS: ARTIFICIAL TEARS OPTH SOLN 15 ML BTL EACH EYE SCH ×3 (09:22→16:31)
[2016-01-31] MEDS: METOPROLOL TARTRATE 25 MG TAB PO SCH ×2 (09:23→20:02)
[2016-01-31] MEDS: CALCIUM/VITAMIN D 250 MG/125 U TAB PO SCH ×2 (09:23→20:02)
[2016-01-31] MEDS: DOCUSATE SODIUM 50 MG/SENNA 8.6 MG TAB PO SCH ×2 (09:23→20:01)
[2016-01-31] MEDS: MULTIVITAMINS/IRON/MINERALS CHEWABLE TAB CHEW SCH (09:23)
[2016-01-31] MEDS: FAMOTIDINE 20 MG TAB PO SCH ×2 (09:23→20:02)
[2016-01-31] MEDS: HYDROmorphone HCL 4 MG TAB PO PRN (09:27)
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
[2016-01-31 11:49] VITALS: BP 136/82; PULSE 70; RESP 20; TEMP 98.4; O2SAT 96
[2016-01-31 16:39] VITALS: BP 142/72; PULSE 86; RESP 20; TEMP 98.4; O2SAT 96
[2016-01-31 20:00] VITALS: BP 121/69; PULSE 83; RESP 18; TEMP 97.8; O2SAT 97
[2016-02-01] VITALS: BP 122/70; PULSE 78; RESP 18; TEMP 97.2; O2SAT 95
[2016-02-01] MEDS: ENOXAPARIN SODIUM 60 MG/0.6 ML SYRINGE SQ SCH ×2 (03:59→16:47)
[2016-02-01] MEDS: CHLORHEXIDINE GLUCONATE 2 % 1 PACK (2 CLOTHS) TOP SCH (04:01)
[2016-02-01 08:00] VITALS: BP 139/76; PULSE 67; RESP 16; TEMP 96; O2SAT 97
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
[2016-02-01] MEDS: DOCUSATE SODIUM 50 MG/SENNA 8.6 MG TAB PO SCH ×2 (11:36→20:42)
[2016-02-01] MEDS: MULTIVITAMINS/IRON/MINERALS CHEWABLE TAB CHEW SCH (11:36)
[2016-02-01] MEDS: CALCIUM/VITAMIN D 250 MG/125 U TAB PO SCH ×2 (11:37→20:42)
[2016-02-01] MEDS: FAMOTIDINE 20 MG TAB PO SCH ×2 (11:37→20:42)
[2016-02-01] MEDS: METOPROLOL TARTRATE 25 MG TAB PO SCH ×2 (11:37→20:42)
[2016-02-01] MEDS: NYSTATIN 100,000 U/GM PWD 15 GM BTL TOPICAL SCH ×2 (11:41→20:44)
[2016-02-01] MEDS: ARTIFICIAL TEARS OPTH SOLN 15 ML BTL EACH EYE SCH ×3 (11:41→16:47)
[2016-02-01 16:00] VITALS: BP 127/79; PULSE 102; RESP 16; TEMP 96.7; O2SAT 98
[2016-02-02] VITALS: BP 122/72; PULSE 70; RESP 20; TEMP 97.4; O2SAT 95
[2016-02-02] MEDS: ENOXAPARIN SODIUM 60 MG/0.6 ML SYRINGE SQ SCH ×2 (04:27→16:45)
[2016-02-02] MEDS: CHLORHEXIDINE GLUCONATE 2 % 1 PACK (2 CLOTHS) TOP SCH (04:29)
[2016-02-02 08:00] VITALS: BP 141/78; PULSE 102; RESP 20; TEMP 97.6; O2SAT 96
[2016-02-02] MEDS: METOPROLOL TARTRATE 25 MG TAB PO SCH ×2 (09:00→20:05)
[2016-02-02] MEDS: FAMOTIDINE 20 MG TAB PO SCH ×2 (09:00→20:05)
[2016-02-02] MEDS: ARTIFICIAL TEARS OPTH SOLN 15 ML BTL EACH EYE SCH ×3 (09:00→16:45)
[2016-02-02] MEDS: MULTIVITAMINS/IRON/MINERALS CHEWABLE TAB CHEW SCH (09:00)
[2016-02-02] MEDS: NYSTATIN 100,000 U/GM PWD 15 GM BTL TOPICAL SCH ×2 (09:00→20:08)
[2016-02-02] MEDS: CALCIUM/VITAMIN D 250 MG/125 U TAB PO SCH ×2 (09:00→20:05)
[2016-02-02] MEDS: DOCUSATE SODIUM 50 MG/SENNA 8.6 MG TAB PO SCH ×3 (09:00→20:06)
[2016-02-02] MEDS: MAGNESIUM HYDROXIDE SUSP 30 ML CUP PO PRN ×2 (12:21→12:22)
[2016-02-02] MEDS: LACTULOSE SYRUP 20 GM/30 ML CUP PO PRN (12:21)
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
[2016-02-02 16:00] VITALS: BP 132/65; PULSE 66; RESP 20; TEMP 98.7; O2SAT 95
[2016-02-02 20:00] VITALS: BP 133/77; PULSE 85; RESP 18; TEMP 95.7; O2SAT 98
[2016-02-03] MEDS: ENOXAPARIN SODIUM 60 MG/0.6 ML SYRINGE SQ SCH ×2 (04:45→16:19)
[2016-02-03 08:00] VITALS: BP 132/88; PULSE 90; RESP 20; TEMP 96.9; O2SAT 98
[2016-02-03] MEDS: METOPROLOL TARTRATE 25 MG TAB PO SCH ×3 (09:00→19:50)
[2016-02-03] MEDS: DOCUSATE SODIUM 50 MG/SENNA 8.6 MG TAB PO SCH ×3 (09:00→19:50)
[2016-02-03] MEDS: ARTIFICIAL TEARS OPTH SOLN 15 ML BTL EACH EYE SCH ×3 (09:00→16:25)
[2016-02-03] MEDS: CALCIUM/VITAMIN D 250 MG/125 U TAB PO SCH ×3 (09:00→19:51)
[2016-02-03] MEDS: NYSTATIN 100,000 U/GM PWD 15 GM BTL TOPICAL SCH ×3 (09:00→19:52)
[2016-02-03] MEDS: MULTIVITAMINS/IRON/MINERALS CHEWABLE TAB CHEW SCH ×2 (09:00→12:18)
[2016-02-03] MEDS: FAMOTIDINE 20 MG TAB PO SCH ×3 (09:00→19:50)
[2016-02-03 16:00] VITALS: BP 149/80; PULSE 80; RESP 20; TEMP 96.3; O2SAT 93
[2016-02-03] MEDS: LACTULOSE SYRUP 20 GM/30 ML CUP PO PRN (16:24)
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
[2016-02-03 20:00] VITALS: BP 134/92; PULSE 112; RESP 17; TEMP 96.8; O2SAT 96
[2016-02-04] VITALS: BP 139/82; PULSE 96; RESP 19; TEMP 96.6; O2SAT 96
[2016-02-04] MEDS: ENOXAPARIN SODIUM 60 MG/0.6 ML SYRINGE SQ SCH ×2 (04:31→14:50)
[2016-02-04 08:00] VITALS: BP 155/81; PULSE 101; RESP 16; TEMP 96.7; O2SAT 97
[2016-02-04] MEDS: MULTIVITAMINS/IRON/MINERALS CHEWABLE TAB CHEW SCH (08:25)
[2016-02-04] MEDS: CALCIUM/VITAMIN D 250 MG/125 U TAB PO SCH ×2 (08:25→21:15)
[2016-02-04] MEDS: DOCUSATE SODIUM 50 MG/SENNA 8.6 MG TAB PO SCH ×2 (08:25→21:16)
[2016-02-04] MEDS: METOPROLOL TARTRATE 25 MG TAB PO SCH ×2 (08:25→21:15)
[2016-02-04] MEDS: FAMOTIDINE 20 MG TAB PO SCH ×2 (08:25→21:15)
[2016-02-04] MEDS: NYSTATIN 100,000 U/GM PWD 15 GM BTL TOPICAL SCH ×2 (08:26→21:17)
[2016-02-04] MEDS: ARTIFICIAL TEARS OPTH SOLN 15 ML BTL EACH EYE SCH ×3 (08:26→17:38)
[2016-02-04 12:00] VITALS: BP 135/77; PULSE 80; RESP 16; TEMP 96.9; O2SAT 96
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
[2016-02-04] MEDS: HYDROmorphone HCL 4 MG TAB PO PRN (14:50)
[2016-02-04 16:00] VITALS: BP 137/93; PULSE 79; RESP 17; TEMP 96.9; O2SAT 96
[2016-02-04 20:00] VITALS: BP 144/74; PULSE 100; RESP 20; TEMP 98.1; O2SAT 98
[2016-02-05] VITALS: BP 138/82; PULSE 90; RESP 20; TEMP 98.1; O2SAT 96
[2016-02-05] MEDS: ENOXAPARIN SODIUM 60 MG/0.6 ML SYRINGE SQ SCH ×2 (04:49→16:18)
[2016-02-05 08:00] VITALS: BP 135/71; PULSE 60; RESP 16; TEMP 96.6; O2SAT 96
[2016-02-05] MEDS: POLYETHYLENE GLYCOL 17 GM PKG PO SCH ×2 (09:00→13:58)
[2016-02-05] MEDS: METOPROLOL TARTRATE 25 MG TAB PO SCH ×2 (09:26→20:13)
[2016-02-05] MEDS: MULTIVITAMINS/IRON/MINERALS CHEWABLE TAB CHEW SCH (09:26)
[2016-02-05] MEDS: FAMOTIDINE 20 MG TAB PO SCH ×2 (09:26→20:13)
[2016-02-05] MEDS: CALCIUM/VITAMIN D 250 MG/125 U TAB PO SCH ×2 (09:26→20:13)
[2016-02-05] MEDS: ARTIFICIAL TEARS OPTH SOLN 15 ML BTL EACH EYE SCH ×3 (09:27→16:19)
[2016-02-05] MEDS: DOCUSATE SODIUM 50 MG/SENNA 8.6 MG TAB PO SCH ×2 (09:27→20:13)
[2016-02-05] MEDS: NYSTATIN 100,000 U/GM PWD 15 GM BTL TOPICAL SCH ×2 (09:27→20:15)
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
[2016-02-05 12:00] VITALS: BP 124/77; PULSE 80; RESP 17; TEMP 97.4; O2SAT 97
[2016-02-05 15:55] VITALS: BP 136/75; PULSE 94; RESP 17; TEMP 97.5; O2SAT 96
[2016-02-05 20:33] VITALS: BP 146/71; PULSE 75; RESP 20; TEMP 97.3; O2SAT 98
[2016-02-06 00:25] VITALS: BP 129/78; PULSE 78; RESP 18; TEMP 97.6; O2SAT 96
[2016-02-06] MEDS: ENOXAPARIN SODIUM 60 MG/0.6 ML SYRINGE SQ SCH ×2 (05:06→16:19)
[2016-02-06 08:00] VITALS: BP 130/72; PULSE 73; RESP 17; TEMP 97.4; O2SAT 96
[2016-02-06] MEDS: FAMOTIDINE 20 MG TAB PO SCH ×2 (08:04→20:58)
[2016-02-06] MEDS: ARTIFICIAL TEARS OPTH SOLN 15 ML BTL EACH EYE SCH ×3 (08:04→17:56)
[2016-02-06] MEDS: ERGOCALCIFEROL (VIT D2) 50,000 UNIT CAP PO SCH (08:04)
[2016-02-06] MEDS: METOPROLOL TARTRATE 25 MG TAB PO SCH ×2 (08:04→20:58)
[2016-02-06] MEDS: CALCIUM/VITAMIN D 250 MG/125 U TAB PO SCH ×2 (08:04→20:58)
[2016-02-06] MEDS: MULTIVITAMINS/IRON/MINERALS CHEWABLE TAB CHEW SCH (08:04)
[2016-02-06] MEDS: NYSTATIN 100,000 U/GM PWD 15 GM BTL TOPICAL SCH ×2 (08:04→20:58)
[2016-02-06] MEDS: DOCUSATE SODIUM 50 MG/SENNA 8.6 MG TAB PO SCH ×2 (08:04→20:58)
[2016-02-06] MEDS: POLYETHYLENE GLYCOL 17 GM PKG PO SCH (08:04)
[2016-02-06 12:00] VITALS: BP 128/77; PULSE 86; RESP 18; TEMP 96.6; O2SAT 95
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
[2016-02-06 16:00] VITALS: BP 132/74; PULSE 96; RESP 16; TEMP 98; O2SAT 96
[2016-02-06 20:00] VITALS: BP 133/78; PULSE 101; RESP 19; TEMP 97.1; O2SAT 97
[2016-02-07] VITALS: BP 127/81; PULSE 93; RESP 17; TEMP 97.2; O2SAT 98
[2016-02-07] MEDS: ENOXAPARIN SODIUM 60 MG/0.6 ML SYRINGE SQ SCH ×2 (04:28→15:49)
[2016-02-07] MEDS: FAMOTIDINE 20 MG TAB PO SCH ×2 (07:55→20:43)
[2016-02-07] MEDS: DOCUSATE SODIUM 50 MG/SENNA 8.6 MG TAB PO SCH ×2 (07:55→20:43)
[2016-02-07] MEDS: CALCIUM/VITAMIN D 250 MG/125 U TAB PO SCH ×2 (07:55→20:43)
[2016-02-07] MEDS: METOPROLOL TARTRATE 25 MG TAB PO SCH ×2 (07:55→20:43)
[2016-02-07] MEDS: ARTIFICIAL TEARS OPTH SOLN 15 ML BTL EACH EYE SCH ×3 (07:55→16:14)
[2016-02-07] MEDS: MULTIVITAMINS/IRON/MINERALS CHEWABLE TAB CHEW SCH (07:55)
[2016-02-07] MEDS: POLYETHYLENE GLYCOL 17 GM PKG PO SCH ×2 (07:55→15:48)
[2016-02-07] MEDS: NYSTATIN 100,000 U/GM PWD 15 GM BTL TOPICAL SCH ×2 (07:56→20:43)
[2016-02-07 08:00] VITALS: BP 118/73; PULSE 82; RESP 18; TEMP 97.9; O2SAT 96
[2016-02-07 12:00] VITALS: BP 128/73; PULSE 93; RESP 18; TEMP 95.1; O2SAT 96
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
[2016-02-07 16:00] VITALS: BP 140/67; PULSE 73; RESP 17; TEMP 96.5; O2SAT 96
[2016-02-08] VITALS: BP 138/68; PULSE 86; RESP 17; TEMP 97; O2SAT 100
[2016-02-08] MEDS: ENOXAPARIN SODIUM 60 MG/0.6 ML SYRINGE SQ SCH ×2 (04:07→15:28)
[2016-02-08 08:00] VITALS: BP 130/82; PULSE 72; RESP 18; TEMP 97.2; O2SAT 93
[2016-02-08] MEDS: ARTIFICIAL TEARS OPTH SOLN 15 ML BTL EACH EYE SCH ×3 (09:00→17:47)
[2016-02-08] MEDS: FAMOTIDINE 20 MG TAB PO SCH ×2 (10:02→21:31)
[2016-02-08] MEDS: DOCUSATE SODIUM 50 MG/SENNA 8.6 MG TAB PO SCH ×2 (10:02→21:31)
[2016-02-08] MEDS: CALCIUM/VITAMIN D 250 MG/125 U TAB PO SCH ×2 (10:02→21:32)
[2016-02-08] MEDS: MULTIVITAMINS/IRON/MINERALS CHEWABLE TAB CHEW SCH (10:02)
[2016-02-08] MEDS: METOPROLOL TARTRATE 25 MG TAB PO SCH ×2 (10:02→21:30)
[2016-02-08] MEDS: NYSTATIN 100,000 U/GM PWD 15 GM BTL TOPICAL SCH ×2 (10:04→21:32)
[2016-02-08 12:00] VITALS: BP 131/86; PULSE 67; RESP 19; TEMP 97.4; O2SAT 96
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
[2016-02-08 16:00] VITALS: BP 135/91; PULSE 80; RESP 19; TEMP 97.4; O2SAT 95
[2016-02-08 20:00] VITALS: BP 125/73; PULSE 114; RESP 20; TEMP 96.6; O2SAT 95
[2016-02-09] VITALS: BP 126/79; PULSE 84; RESP 18; TEMP 98.7; O2SAT 95
[2016-02-09] MEDS: ENOXAPARIN SODIUM 60 MG/0.6 ML SYRINGE SQ SCH ×2 (04:17→18:46)
--- NOTE | 2016-02-09 07:11 | PD.ORT.PN ---
Subjective Subjective Remarks Resting comfortably Objective Vitals Vital Signs Date Time Temp Pulse Resp B/P Pulse Ox O2 Delivery O2 Flow Rate FiO2 02/09/16 00:00 98.7 84 18 126/79 95 02/08/16 20:00 96.6 114 20 125/73 95 02/08/16 16:00 97.4 80 19 135/91 95 02/08/16 12:00 97.4 67 19 131/86 96 02/08/16 08:00 97.2 72 18 130/82 93 I/O 02/08/16 02/08/16 02/08/16 02/09/16 02/09/16 02/09/16 07:00 15:00 23:00 07:00 15:00 23:00 Intake Total 240 ml 200 ml 480 ml 240 ml Output Total 650 ml 700 ml 550 ml 450 ml Balance -410 ml -500 ml -70 ml -210 ml Intake Oral 240 ml 200 ml 480 ml 240 ml IV Total 0 ml Output Urine Total 650 ml 700 ml 550 ml 450 ml # Bowel Movements 0 1 0 Objective Remarks LLE: morbidly obese. +cap refill. anterior leg wounds granulated in well and healing appropriately. posterior thigh wound directly in skin fold. no purulence. dry dressing present Assessment & Plan Assessment and Plan 1) Left Distal femur Fx s/p ORIF on 10/11/15 -NWB CT ordered for today to evaluate fracture healing -PT for ROM of knee and ankle 2) Spinal Fx - Dr Herbert to manage 3) Left Tibia wounds 4) Left Posterior Thigh wound -daily dressing changes with xeroform/4x4/HAYLEY or primapore/tape -will proceed with CT scan of left femur and spine today. patient agreeable. further PT instructions to follow depending on CT scan results of knee KELSIE BRAGA PA-C Feb 09, 2016 07:11
[2016-02-09 08:00] VITALS: BP 119/73; PULSE 64; RESP 17; TEMP 98.6; O2SAT 96
[2016-02-09] MEDS: POLYETHYLENE GLYCOL 17 GM PKG PO SCH (09:00)
[2016-02-09 12:00] VITALS: BP 141/79; PULSE 92; RESP 18; TEMP 98.3; O2SAT 94
[2016-02-09] MEDS: CALCIUM/VITAMIN D 250 MG/125 U TAB PO SCH ×2 (12:52→21:06)
[2016-02-09] MEDS: DOCUSATE SODIUM 50 MG/SENNA 8.6 MG TAB PO SCH ×2 (12:52→21:06)
[2016-02-09] MEDS: FAMOTIDINE 20 MG TAB PO SCH ×2 (12:53→21:06)
[2016-02-09] MEDS: METOPROLOL TARTRATE 25 MG TAB PO SCH ×2 (12:53→21:07)
[2016-02-09] MEDS: MULTIVITAMINS/IRON/MINERALS CHEWABLE TAB CHEW SCH (12:53)
[2016-02-09] MEDS: ARTIFICIAL TEARS OPTH SOLN 15 ML BTL EACH EYE SCH ×3 (12:57→18:47)
[2016-02-09] MEDS: NYSTATIN 100,000 U/GM PWD 15 GM BTL TOPICAL SCH ×2 (12:57→21:07)
--- NOTE | 2016-02-09 14:57 | RADRPT ---
EXAM DATE/TIME: 02/09/2016 14:13 [place] COMPARISON: No previous studies available for comparison. INDICATIONS : Left leg pain RADIATION DOSE: 29.43 CTDIvol (mGy) MEDICAL HISTORY : Hypertension. Diabetes mellitus type 1. SURGICAL HISTORY : left femur sophie ENCOUNTER: Initial ACUITY: 1 month PAIN SCALE: 6/10 LOCATION: Left femur TECHNIQUE: Volumetric scanning of the femur was performed. Using automated exposure control and adjustment of t he mA and/or kV according to patient size, radiation dose was kept as low as reasonably achievable to obtain optimal diagnostic quality images. FINDINGS: There is a comminuted fracture of the distal femur with a sideplate and screws present. The alignment is anatomic. The fracture does not extend to the articular surface. The proximal femur is intact. Cassandra int spaces are maintained. CONCLUSION: 1. Comminuted fracture distal femur in anatomic alignment Gregory Jolly MD on February 09, 2016 at 14:53 Board Certified Radiologist. This report was verified electronically.
[2016-02-09] MEDS: HYDROmorphone HCL 4 MG TAB PO PRN ×2 (14:58→21:06)
[2016-02-09 15:59] VITALS: BP 146/70; PULSE 74; RESP 17; TEMP 95.6; O2SAT 94
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
[2016-02-09 20:00] VITALS: BP 124/69; PULSE 107; RESP 18; TEMP 96.9; O2SAT 94
[2016-02-10 00:33] VITALS: BP 128/79; PULSE 79; RESP 20; TEMP 98.9; O2SAT 98
[2016-02-10] MEDS: ENOXAPARIN SODIUM 60 MG/0.6 ML SYRINGE SQ SCH ×2 (04:00→18:35)
[2016-02-10 05:41] LABS: AUTOMATED NEUTROPHIL # 5.3 TH/MM3 (1.8-7.7); BASOPHIL % 0.6 % (0.0-2.0); EOSINOPHIL # 0.3 TH/MM3 (0-0.4); EOSINOPHIL % 4.2 % (0.0-4.0); HEMATOCRIT 32.2 % (39.0-51.0); LYMPH % 22.9 % (9.0-44.0); LYMPHOCYTE # 1.8 TH/MM3 (1.0-4.8); MEAN CELL VOLUME 68.9 FL (80.0-100.0); MEAN CORPUSCULAR HEMOGLOBIN 22.2 PG (27.0-34.0); MEAN CORPUSCULAR HGB CONC 32.2 % (32.0-36.0); MONO % 6.8 % (0.0-8.0); NEUT % 65.5 % (16.0-70.0); PLATELET COUNT 216 TH/MM3 (150-450); RED BLOOD COUNT 4.67 MIL/MM3 (4.50-5.90); RED CELL DISTRIBUTION WIDTH 20.1 % (11.6-17.2); WHITE BLOOD COUNT 8.1 TH/MM3 (4.0-11.0)
[2016-02-10 06:03] LABS: HEMO FLAGS AUTO DIFF
[2016-02-10 06:07] LABS: BICARBONATE 28.5 MEQ/L (21.0-32.0); MAGNESIUM 2.3 MG/DL (1.5-2.5); POTASSIUM 3.7 MEQ/L (3.5-5.1)
[2016-02-10 07:05] LABS: ACANTHOCYTES OCC (NORMAL); OVALOCYTES 1+ (NORMAL); SCAN/DIFF AUTO DIFF CONFIRMED
[2016-02-10 07:06] LABS: PLATELET ESTIMATE SMEAR NORMAL (NORMAL); PLATELET MORPHOLOGY NORMAL (NORMAL)
[2016-02-10 08:00] VITALS: BP 134/75; PULSE 78; RESP 18; TEMP 98; O2SAT 95
[2016-02-10] MEDS: POLYETHYLENE GLYCOL 17 GM PKG PO SCH (09:00)
[2016-02-10 12:00] VITALS: BP 125/74; PULSE 67; RESP 17; TEMP 97.7; O2SAT 95
[2016-02-10] MEDS: FAMOTIDINE 20 MG TAB PO SCH ×2 (12:33→20:31)
[2016-02-10] MEDS: DOCUSATE SODIUM 50 MG/SENNA 8.6 MG TAB PO SCH ×2 (12:34→20:31)
[2016-02-10] MEDS: METOPROLOL TARTRATE 25 MG TAB PO SCH ×2 (12:34→20:31)
[2016-02-10] MEDS: MULTIVITAMINS/IRON/MINERALS CHEWABLE TAB CHEW SCH (12:34)
[2016-02-10] MEDS: CALCIUM/VITAMIN D 250 MG/125 U TAB PO SCH ×2 (12:34→20:31)
[2016-02-10] MEDS: ARTIFICIAL TEARS OPTH SOLN 15 ML BTL EACH EYE SCH ×3 (12:35→18:00)
[2016-02-10] MEDS: NYSTATIN 100,000 U/GM PWD 15 GM BTL TOPICAL SCH ×2 (12:36→20:32)
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
[2016-02-10 15:00] VITALS: BP 154/85; PULSE 78; RESP 17; TEMP 96.9; O2SAT 98
[2016-02-10 20:00] VITALS: BP 131/79; PULSE 74; RESP 18; TEMP 97.4; O2SAT 96
[2016-02-11] VITALS: BP 138/87; PULSE 103; RESP 18; TEMP 99.3; O2SAT 96
[2016-02-11] MEDS: ENOXAPARIN SODIUM 60 MG/0.6 ML SYRINGE SQ SCH ×2 (05:54→15:39)
[2016-02-11 08:00] VITALS: BP 129/70; PULSE 78; RESP 18; TEMP 97.9; O2SAT 96
[2016-02-11] MEDS: FAMOTIDINE 20 MG TAB PO SCH ×2 (08:33→21:17)
[2016-02-11] MEDS: METOPROLOL TARTRATE 25 MG TAB PO SCH ×2 (08:33→21:00)
[2016-02-11] MEDS: POLYETHYLENE GLYCOL 17 GM PKG PO SCH (08:33)
[2016-02-11] MEDS: CALCIUM/VITAMIN D 250 MG/125 U TAB PO SCH ×2 (08:33→21:17)
[2016-02-11] MEDS: DOCUSATE SODIUM 50 MG/SENNA 8.6 MG TAB PO SCH ×2 (08:33→21:18)
[2016-02-11] MEDS: MULTIVITAMINS/IRON/MINERALS CHEWABLE TAB CHEW SCH (08:33)
[2016-02-11] MEDS: ARTIFICIAL TEARS OPTH SOLN 15 ML BTL EACH EYE SCH ×3 (08:34→16:50)
[2016-02-11] MEDS: NYSTATIN 100,000 U/GM PWD 15 GM BTL TOPICAL SCH ×2 (08:34→21:18)
[2016-02-11 12:00] VITALS: BP_SYST 129; BP_SYST 130; BP_DIAS 61; BP_DIAS 70; PULSE 73; PULSE 78; RESP 18; RESP 19; TEMP 97.9; TEMP 98.2; O2SAT 96
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
[2016-02-11 16:00] VITALS: BP 135/72; PULSE 68; RESP 17; TEMP 97.4; O2SAT 97
[2016-02-11] MEDS: HYDROmorphone HCL 4 MG TAB PO PRN (18:43)
[2016-02-11 20:00] VITALS: BP 140/76; PULSE 100; RESP 20; TEMP 97.9; O2SAT 98
[2016-02-12] VITALS: BP 133/77; PULSE 80; RESP 18; TEMP 97.5; O2SAT 98
[2016-02-12] MEDS: ENOXAPARIN SODIUM 60 MG/0.6 ML SYRINGE SQ SCH ×2 (04:28→15:53)
[2016-02-12 08:00] VITALS: BP 146/80; PULSE 87; RESP 20; TEMP 97.4; O2SAT 99
[2016-02-12] MEDS: ARTIFICIAL TEARS OPTH SOLN 15 ML BTL EACH EYE SCH ×3 (09:00→17:06)
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
[2016-02-12] MEDS: MULTIVITAMINS/IRON/MINERALS CHEWABLE TAB CHEW SCH (10:11)
[2016-02-12] MEDS: METOPROLOL TARTRATE 25 MG TAB PO SCH ×2 (10:11→21:36)
[2016-02-12] MEDS: CALCIUM/VITAMIN D 250 MG/125 U TAB PO SCH ×2 (10:11→21:36)
[2016-02-12] MEDS: POLYETHYLENE GLYCOL 17 GM PKG PO SCH (10:11)
[2016-02-12] MEDS: DOCUSATE SODIUM 50 MG/SENNA 8.6 MG TAB PO SCH ×2 (10:11→21:36)
[2016-02-12] MEDS: FAMOTIDINE 20 MG TAB PO SCH ×2 (10:11→21:36)
[2016-02-12] MEDS: NYSTATIN 100,000 U/GM PWD 15 GM BTL TOPICAL SCH ×2 (10:12→21:00)
[2016-02-12 11:15] VITALS: BP 141/83; PULSE 61; RESP 20; TEMP 97.3; O2SAT 97
[2016-02-12 16:00] VITALS: BP 134/88; PULSE 79; RESP 18; TEMP 97.3; O2SAT 96
[2016-02-12 20:00] VITALS: BP 130/71; PULSE 114; RESP 21; TEMP 97.6; O2SAT 95
[2016-02-13] VITALS: BP 128/77; PULSE 113; RESP 19; TEMP 98.1; O2SAT 96
[2016-02-13] MEDS: ENOXAPARIN SODIUM 60 MG/0.6 ML SYRINGE SQ SCH ×2 (04:52→18:53)
[2016-02-13 08:00] VITALS: BP 123/63; PULSE 70; RESP 17; TEMP 95.1; O2SAT 96
[2016-02-13] MEDS: POLYETHYLENE GLYCOL 17 GM PKG PO SCH (09:00)
[2016-02-13] MEDS: ERGOCALCIFEROL (VIT D2) 50,000 UNIT CAP PO SCH (09:00)
[2016-02-13] MEDS: METOPROLOL TARTRATE 25 MG TAB PO SCH ×2 (09:37→22:11)
[2016-02-13] MEDS: FAMOTIDINE 20 MG TAB PO SCH ×2 (09:37→22:11)
[2016-02-13] MEDS: CALCIUM/VITAMIN D 250 MG/125 U TAB PO SCH ×2 (09:38→22:11)
[2016-02-13] MEDS: MULTIVITAMINS/IRON/MINERALS CHEWABLE TAB CHEW SCH (09:38)
[2016-02-13] MEDS: DOCUSATE SODIUM 50 MG/SENNA 8.6 MG TAB PO SCH ×2 (09:38→20:49)
[2016-02-13] MEDS: ARTIFICIAL TEARS OPTH SOLN 15 ML BTL EACH EYE SCH ×3 (09:41→18:54)
[2016-02-13] MEDS: NYSTATIN 100,000 U/GM PWD 15 GM BTL TOPICAL SCH ×2 (09:41→21:00)
[2016-02-13 12:00] VITALS: BP 125/65; PULSE 63; RESP 17; TEMP 97.4; O2SAT 96
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
[2016-02-13 16:00] VITALS: BP 142/85; PULSE 70; RESP 18; TEMP 96.5; O2SAT 97
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
[2016-02-13 20:00] VITALS: BP 137/88; PULSE 81; RESP 19; TEMP 98.1; O2SAT 97
[2016-02-14] VITALS: BP 111/70; PULSE 117; RESP 18; TEMP 97; O2SAT 97
[2016-02-14] MEDS: ENOXAPARIN SODIUM 60 MG/0.6 ML SYRINGE SQ SCH ×2 (04:44→16:25)
[2016-02-14 08:00] VITALS: BP 121/67; PULSE 74; RESP 17; TEMP 96.2; O2SAT 96
[2016-02-14] MEDS: FAMOTIDINE 20 MG TAB PO SCH ×2 (09:00→20:40)
[2016-02-14] MEDS: NYSTATIN 100,000 U/GM PWD 15 GM BTL TOPICAL SCH ×2 (09:00→20:53)
[2016-02-14] MEDS: POLYETHYLENE GLYCOL 17 GM PKG PO SCH (09:00)
[2016-02-14] MEDS: ARTIFICIAL TEARS OPTH SOLN 15 ML BTL EACH EYE SCH ×3 (09:00→16:26)
[2016-02-14] MEDS: CALCIUM/VITAMIN D 250 MG/125 U TAB PO SCH ×2 (09:38→20:40)
[2016-02-14] MEDS: DOCUSATE SODIUM 50 MG/SENNA 8.6 MG TAB PO SCH ×2 (09:38→20:41)
[2016-02-14] MEDS: MULTIVITAMINS/IRON/MINERALS CHEWABLE TAB CHEW SCH (09:38)
[2016-02-14] MEDS: METOPROLOL TARTRATE 25 MG TAB PO SCH ×2 (09:38→20:40)
[2016-02-14 12:00] VITALS: BP 145/87; PULSE 78; RESP 18; TEMP 96.3; O2SAT 96
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
[2016-02-14 16:00] VITALS: BP 141/77; PULSE 68; RESP 18; TEMP 96.1; O2SAT 95
[2016-02-14 20:00] VITALS: BP 133/80; PULSE 74; RESP 20; TEMP 98.4; O2SAT 95
[2016-02-15] VITALS: BP 121/78; PULSE 81; RESP 20; TEMP 97.6; O2SAT 96
[2016-02-15] MEDS: ENOXAPARIN SODIUM 60 MG/0.6 ML SYRINGE SQ SCH ×2 (05:28→16:10)
[2016-02-15 08:00] VITALS: BP 140/78; PULSE 101; RESP 18; TEMP 97.7; O2SAT 99
[2016-02-15] MEDS: POLYETHYLENE GLYCOL 17 GM PKG PO SCH (09:00)
[2016-02-15] MEDS: MULTIVITAMINS/IRON/MINERALS CHEWABLE TAB CHEW SCH (09:01)
[2016-02-15] MEDS: METOPROLOL TARTRATE 25 MG TAB PO SCH ×2 (09:02→20:28)
[2016-02-15] MEDS: FAMOTIDINE 20 MG TAB PO SCH ×2 (09:02→20:28)
[2016-02-15] MEDS: DOCUSATE SODIUM 50 MG/SENNA 8.6 MG TAB PO SCH ×2 (09:02→20:28)
[2016-02-15] MEDS: CALCIUM/VITAMIN D 250 MG/125 U TAB PO SCH ×2 (09:02→20:28)
[2016-02-15] MEDS: ARTIFICIAL TEARS OPTH SOLN 15 ML BTL EACH EYE SCH ×3 (09:03→16:10)
[2016-02-15] MEDS: NYSTATIN 100,000 U/GM PWD 15 GM BTL TOPICAL SCH ×2 (09:03→20:30)
[2016-02-15 12:00] VITALS: BP 129/81; PULSE 76; RESP 19; TEMP 97.6; O2SAT 97
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
[2016-02-15 16:00] VITALS: BP 128/80; PULSE 74; RESP 19; TEMP 95.8; O2SAT 96
[2016-02-15 20:00] VITALS: BP 136/97; PULSE 80; RESP 18; TEMP 96.5; O2SAT 96
[2016-02-16] MEDS: ENOXAPARIN SODIUM 60 MG/0.6 ML SYRINGE SQ SCH ×2 (04:15→15:52)
[2016-02-16] MEDS: LACTULOSE SYRUP 20 GM/30 ML CUP PO PRN ×2 (04:17→10:45)
[2016-02-16] MEDS: MAGNESIUM HYDROXIDE SUSP 30 ML CUP PO PRN (07:57)
[2016-02-16] MEDS: MULTIVITAMINS/IRON/MINERALS CHEWABLE TAB CHEW SCH (07:57)
[2016-02-16] MEDS: POLYETHYLENE GLYCOL 17 GM PKG PO SCH (07:57)
[2016-02-16] MEDS: FAMOTIDINE 20 MG TAB PO SCH ×2 (07:58→21:19)
[2016-02-16] MEDS: METOPROLOL TARTRATE 25 MG TAB PO SCH ×2 (07:58→21:19)
[2016-02-16] MEDS: DOCUSATE SODIUM 50 MG/SENNA 8.6 MG TAB PO SCH ×2 (07:58→21:19)
[2016-02-16] MEDS: CALCIUM/VITAMIN D 250 MG/125 U TAB PO SCH ×2 (07:58→21:19)
[2016-02-16 08:00] VITALS: BP 140/79; PULSE 74; RESP 16; TEMP 96.1; O2SAT 96
[2016-02-16] MEDS: ARTIFICIAL TEARS OPTH SOLN 15 ML BTL EACH EYE SCH ×3 (08:00→15:53)
[2016-02-16] MEDS: NYSTATIN 100,000 U/GM PWD 15 GM BTL TOPICAL SCH ×2 (08:01→21:00)
[2016-02-16 12:00] VITALS: BP 135/84; PULSE 61; RESP 16; TEMP 97.3; O2SAT 96
[2016-02-16 16:00] VITALS: BP 125/73; PULSE 72; RESP 16; TEMP 97.4; O2SAT 98
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
[2016-02-16 20:00] VITALS: BP 161/88; PULSE 85; RESP 20; TEMP 97.5; O2SAT 96
[2016-02-17] VITALS: BP 156/78; PULSE 82; RESP 20; TEMP 98; O2SAT 94
[2016-02-17] MEDS: ENOXAPARIN SODIUM 60 MG/0.6 ML SYRINGE SQ SCH ×2 (04:30→16:16)
[2016-02-17 08:00] VITALS: BP_SYST 125; BP_SYST 135; BP_DIAS 68; BP_DIAS 72; PULSE 85; PULSE 93; RESP 14; RESP 16; TEMP 95.7; TEMP 98; O2SAT 95; O2SAT 96
[2016-02-17] MEDS: ARTIFICIAL TEARS OPTH SOLN 15 ML BTL EACH EYE SCH ×3 (08:18→16:16)
[2016-02-17] MEDS: POLYETHYLENE GLYCOL 17 GM PKG PO SCH (08:19)
[2016-02-17] MEDS: NYSTATIN 100,000 U/GM PWD 15 GM BTL TOPICAL SCH ×2 (08:19→20:42)
[2016-02-17] MEDS: MULTIVITAMINS/IRON/MINERALS CHEWABLE TAB CHEW SCH (08:19)
[2016-02-17] MEDS: DOCUSATE SODIUM 50 MG/SENNA 8.6 MG TAB PO SCH ×2 (08:19→20:32)
[2016-02-17] MEDS: FAMOTIDINE 20 MG TAB PO SCH ×2 (08:19→20:32)
[2016-02-17] MEDS: METOPROLOL TARTRATE 25 MG TAB PO SCH ×2 (08:19→20:32)
[2016-02-17] MEDS: CALCIUM/VITAMIN D 250 MG/125 U TAB PO SCH ×2 (08:19→20:32)
[2016-02-17 12:00] VITALS: BP 136/92; PULSE 90; RESP 16; TEMP 97; O2SAT 92
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
[2016-02-17 16:00] VITALS: BP 125/68; PULSE 93; RESP 16; TEMP 98; O2SAT 95
[2016-02-17 20:00] VITALS: BP 120/68; PULSE 84; RESP 18; TEMP 97.8; O2SAT 96
[2016-02-17] MEDS: AQUAPHOR OINT 50 APPLIC/50 GM TUBE TOP SCH (20:32)
[2016-02-18] VITALS: BP 122/59; PULSE 65; RESP 18; TEMP 97.4; O2SAT 95
[2016-02-18] MEDS: ENOXAPARIN SODIUM 60 MG/0.6 ML SYRINGE SQ SCH ×2 (04:08→16:00)
[2016-02-18 08:00] VITALS: BP 126/63; PULSE 78; RESP 19; TEMP 98.7; O2SAT 96
[2016-02-18] MEDS: CALCIUM/VITAMIN D 250 MG/125 U TAB PO SCH ×2 (08:19→20:55)
[2016-02-18] MEDS: MULTIVITAMINS/IRON/MINERALS CHEWABLE TAB CHEW SCH (08:19)
[2016-02-18] MEDS: POLYETHYLENE GLYCOL 17 GM PKG PO SCH (08:19)
[2016-02-18] MEDS: ARTIFICIAL TEARS OPTH SOLN 15 ML BTL EACH EYE SCH ×3 (08:20→16:57)
[2016-02-18] MEDS: FAMOTIDINE 20 MG TAB PO SCH ×2 (08:20→20:55)
[2016-02-18] MEDS: DOCUSATE SODIUM 50 MG/SENNA 8.6 MG TAB PO SCH ×2 (08:20→20:55)
[2016-02-18] MEDS: METOPROLOL TARTRATE 25 MG TAB PO SCH ×2 (08:20→20:55)
[2016-02-18] MEDS: NYSTATIN 100,000 U/GM PWD 15 GM BTL TOPICAL SCH ×2 (08:20→20:59)
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
[2016-02-18 19:58] VITALS: BP 142/84; PULSE 90; RESP 20; TEMP 98; O2SAT 97
[2016-02-18] MEDS: AQUAPHOR OINT 50 APPLIC/50 GM TUBE TOP SCH (20:58)
[2016-02-18 23:39] VITALS: BP 135/74; PULSE 89; RESP 20; TEMP 97.2; O2SAT 97
[2016-02-19] MEDS: ENOXAPARIN SODIUM 60 MG/0.6 ML SYRINGE SQ SCH ×2 (03:50→14:56)
[2016-02-19] MEDS: POLYETHYLENE GLYCOL 17 GM PKG PO SCH (07:08)
[2016-02-19 08:00] VITALS: BP 135/82; PULSE 81; RESP 20; TEMP 96.8; O2SAT 97
[2016-02-19] MEDS: ARTIFICIAL TEARS OPTH SOLN 15 ML BTL EACH EYE SCH ×3 (09:00→16:26)
[2016-02-19] MEDS: MULTIVITAMINS/IRON/MINERALS CHEWABLE TAB CHEW SCH (09:00)
[2016-02-19] MEDS: FAMOTIDINE 20 MG TAB PO SCH ×2 (10:38→20:19)
[2016-02-19] MEDS: CALCIUM/VITAMIN D 250 MG/125 U TAB PO SCH ×2 (10:38→20:19)
[2016-02-19] MEDS: METOPROLOL TARTRATE 25 MG TAB PO SCH ×2 (10:38→20:19)
[2016-02-19] MEDS: DOCUSATE SODIUM 50 MG/SENNA 8.6 MG TAB PO SCH ×2 (10:38→20:18)
[2016-02-19] MEDS: NYSTATIN 100,000 U/GM PWD 15 GM BTL TOPICAL SCH ×2 (10:39→20:24)
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
[2016-02-19 12:00] VITALS: BP 134/72; PULSE 78; RESP 20; TEMP 97.1; O2SAT 96
[2016-02-19 16:00] VITALS: BP 120/72; PULSE 84; RESP 20; TEMP 96.9; O2SAT 95
[2016-02-19 20:00] VITALS: BP 129/87; PULSE 75; RESP 20; TEMP 96.4; O2SAT 98
[2016-02-19] MEDS: AQUAPHOR OINT 50 APPLIC/50 GM TUBE TOP SCH (20:24)
[2016-02-20] VITALS: BP 126/73; PULSE 72; RESP 20; TEMP 97.2; O2SAT 96
[2016-02-20] MEDS: ENOXAPARIN SODIUM 60 MG/0.6 ML SYRINGE SQ SCH ×2 (04:23→17:26)
[2016-02-20 08:00] VITALS: BP 130/70; PULSE 85; RESP 19; TEMP 98.4; O2SAT 97
[2016-02-20] MEDS: POLYETHYLENE GLYCOL 17 GM PKG PO SCH (09:00)
[2016-02-20] MEDS: ERGOCALCIFEROL (VIT D2) 50,000 UNIT CAP PO SCH (11:16)
[2016-02-20] MEDS: DOCUSATE SODIUM 50 MG/SENNA 8.6 MG TAB PO SCH ×2 (11:16→19:43)
[2016-02-20] MEDS: FAMOTIDINE 20 MG TAB PO SCH ×2 (11:17→19:43)
[2016-02-20] MEDS: METOPROLOL TARTRATE 25 MG TAB PO SCH ×2 (11:17→19:43)
[2016-02-20] MEDS: MULTIVITAMINS/IRON/MINERALS CHEWABLE TAB CHEW SCH (11:17)
[2016-02-20] MEDS: CALCIUM/VITAMIN D 250 MG/125 U TAB PO SCH ×2 (11:18→19:43)
[2016-02-20] MEDS: NYSTATIN 100,000 U/GM PWD 15 GM BTL TOPICAL SCH ×2 (11:22→19:43)
[2016-02-20] MEDS: ARTIFICIAL TEARS OPTH SOLN 15 ML BTL EACH EYE SCH ×3 (11:22→17:28)
[2016-02-20 11:49] VITALS: BP 130/57; PULSE 94; RESP 18; TEMP 98.6; O2SAT 96
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
[2016-02-20] MEDS: HYDROmorphone HCL 4 MG TAB PO PRN (13:01)
[2016-02-20 16:00] VITALS: BP 134/73; PULSE 78; RESP 20; TEMP 96.9; O2SAT 97
[2016-02-20] MEDS: AQUAPHOR OINT 50 APPLIC/50 GM TUBE TOP SCH (19:43)
[2016-02-20] MEDS: diphenhydrAMINE HCL 25 MG CAP PO PRN (19:43)
[2016-02-20 20:00] VITALS: BP 138/72; PULSE 65; RESP 20; TEMP 97.5; O2SAT 96
[2016-02-21] VITALS: BP 169/73; PULSE 73; RESP 20; TEMP 97.5; O2SAT 97
[2016-02-21] MEDS: ENOXAPARIN SODIUM 60 MG/0.6 ML SYRINGE SQ SCH ×2 (03:59→17:52)
[2016-02-21 08:07] VITALS: BP 136/74; PULSE 67; RESP 18; TEMP 97.7; O2SAT 97
[2016-02-21] MEDS: NYSTATIN 100,000 U/GM PWD 15 GM BTL TOPICAL SCH ×2 (09:00→21:30)
[2016-02-21] MEDS: ARTIFICIAL TEARS OPTH SOLN 15 ML BTL EACH EYE SCH ×3 (09:00→17:52)
[2016-02-21] MEDS: POLYETHYLENE GLYCOL 17 GM PKG PO SCH (09:00)
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
[2016-02-21] MEDS: MULTIVITAMINS/IRON/MINERALS CHEWABLE TAB CHEW SCH (11:28)
[2016-02-21] MEDS: METOPROLOL TARTRATE 25 MG TAB PO SCH ×2 (11:29→21:57)
[2016-02-21] MEDS: DOCUSATE SODIUM 50 MG/SENNA 8.6 MG TAB PO SCH ×2 (11:29→21:57)
[2016-02-21] MEDS: CALCIUM/VITAMIN D 250 MG/125 U TAB PO SCH ×2 (11:29→21:57)
[2016-02-21] MEDS: FAMOTIDINE 20 MG TAB PO SCH ×2 (11:29→21:57)
[2016-02-21 11:33] VITALS: BP 138/71; PULSE 90; RESP 20; TEMP 97.7; O2SAT 95
[2016-02-21 16:00] VITALS: BP 137/80; PULSE 75; RESP 19; TEMP 98.6; O2SAT 96
[2016-02-21 20:00] VITALS: BP 122/61; PULSE 80; RESP 18; TEMP 97.6; O2SAT 96
[2016-02-21] MEDS: AQUAPHOR OINT 50 APPLIC/50 GM TUBE TOP SCH (22:00)
[2016-02-22] VITALS: BP 145/84; PULSE 95; RESP 19; TEMP 98.6; O2SAT 96
[2016-02-22] MEDS: ENOXAPARIN SODIUM 60 MG/0.6 ML SYRINGE SQ SCH ×2 (04:01→16:29)
[2016-02-22 08:00] VITALS: BP 131/69; PULSE 76; RESP 19; TEMP 98; O2SAT 98
[2016-02-22] MEDS: METOPROLOL TARTRATE 25 MG TAB PO SCH ×2 (08:18→20:42)
[2016-02-22] MEDS: DOCUSATE SODIUM 50 MG/SENNA 8.6 MG TAB PO SCH ×2 (08:18→20:42)
[2016-02-22] MEDS: POLYETHYLENE GLYCOL 17 GM PKG PO SCH (08:18)
[2016-02-22] MEDS: MULTIVITAMINS/IRON/MINERALS CHEWABLE TAB CHEW SCH (08:18)
[2016-02-22] MEDS: FAMOTIDINE 20 MG TAB PO SCH ×2 (08:18→20:42)
[2016-02-22] MEDS: CALCIUM/VITAMIN D 250 MG/125 U TAB PO SCH ×2 (08:18→20:42)
[2016-02-22] MEDS: NYSTATIN 100,000 U/GM PWD 15 GM BTL TOPICAL SCH ×2 (08:19→20:45)
[2016-02-22] MEDS: ARTIFICIAL TEARS OPTH SOLN 15 ML BTL EACH EYE SCH ×3 (08:19→16:29)
[2016-02-22 11:40] VITALS: BP 129/70; PULSE 75; RESP 20; TEMP 97.8; O2SAT 97
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
[2016-02-22 16:00] VITALS: BP 136/81; PULSE 94; RESP 20; TEMP 96.9; O2SAT 98
[2016-02-22 20:00] VITALS: BP 135/77; PULSE 102; RESP 20; TEMP 97.7; O2SAT 95
[2016-02-22] MEDS: AQUAPHOR OINT 50 APPLIC/50 GM TUBE TOP SCH (20:44)
[2016-02-23] VITALS: BP 132/72; PULSE 94; RESP 20; TEMP 98; O2SAT 96
[2016-02-23] MEDS: ENOXAPARIN SODIUM 60 MG/0.6 ML SYRINGE SQ SCH ×2 (05:14→17:32)
[2016-02-23 08:00] VITALS: BP 134/70; PULSE 90; RESP 20; TEMP 99; O2SAT 100
[2016-02-23] MEDS: METOPROLOL TARTRATE 25 MG TAB PO SCH ×2 (08:42→20:54)
[2016-02-23] MEDS: FAMOTIDINE 20 MG TAB PO SCH ×2 (08:42→20:54)
[2016-02-23] MEDS: DOCUSATE SODIUM 50 MG/SENNA 8.6 MG TAB PO SCH ×2 (08:43→20:54)
[2016-02-23] MEDS: CALCIUM/VITAMIN D 250 MG/125 U TAB PO SCH ×2 (08:43→20:54)
[2016-02-23] MEDS: MULTIVITAMINS/IRON/MINERALS CHEWABLE TAB CHEW SCH (08:43)
[2016-02-23] MEDS: POLYETHYLENE GLYCOL 17 GM PKG PO SCH (08:44)
[2016-02-23] MEDS: NYSTATIN 100,000 U/GM PWD 15 GM BTL TOPICAL SCH ×2 (08:44→20:57)
[2016-02-23] MEDS: ARTIFICIAL TEARS OPTH SOLN 15 ML BTL EACH EYE SCH ×3 (08:44→17:34)
[2016-02-23 12:00] VITALS: BP 138/81; PULSE 76; RESP 18; TEMP 97.6; O2SAT 99
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
[2016-02-23 16:00] VITALS: BP 136/76; PULSE 84; RESP 20; TEMP 97.8; O2SAT 98
[2016-02-23 20:00] VITALS: BP 126/87; PULSE 96; RESP 20; TEMP 97.5; O2SAT 98
[2016-02-23] MEDS: AQUAPHOR OINT 50 APPLIC/50 GM TUBE TOP SCH (20:57)
[2016-02-24] VITALS: BP 128/82; PULSE 76; RESP 20; TEMP 97.4; O2SAT 95
[2016-02-24] MEDS: ENOXAPARIN SODIUM 60 MG/0.6 ML SYRINGE SQ SCH ×2 (05:03→15:47)
[2016-02-24 08:00] VITALS: BP 130/66; PULSE 75; RESP 17; TEMP 95.9; O2SAT 97
[2016-02-24] MEDS: FAMOTIDINE 20 MG TAB PO SCH ×2 (08:46→21:59)
[2016-02-24] MEDS: DOCUSATE SODIUM 50 MG/SENNA 8.6 MG TAB PO SCH ×2 (08:46→21:59)
[2016-02-24] MEDS: METOPROLOL TARTRATE 25 MG TAB PO SCH ×2 (08:46→21:59)
[2016-02-24] MEDS: NYSTATIN 100,000 U/GM PWD 15 GM BTL TOPICAL SCH ×2 (08:46→21:00)
[2016-02-24] MEDS: MULTIVITAMINS/IRON/MINERALS CHEWABLE TAB CHEW SCH (08:46)
[2016-02-24] MEDS: CALCIUM/VITAMIN D 250 MG/125 U TAB PO SCH ×2 (08:46→21:59)
[2016-02-24] MEDS: POLYETHYLENE GLYCOL 17 GM PKG PO SCH (08:47)
[2016-02-24] MEDS: ARTIFICIAL TEARS OPTH SOLN 15 ML BTL EACH EYE SCH ×3 (08:47→17:39)
[2016-02-24 12:00] VITALS: BP 159/86; PULSE 79; RESP 18; TEMP 97; O2SAT 97
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
[2016-02-24 16:00] VITALS: BP 124/77; PULSE 77; RESP 16; TEMP 97.7; O2SAT 96
[2016-02-24 20:00] VITALS: BP 143/74; PULSE 80; RESP 20; TEMP 97.1; O2SAT 98
[2016-02-24] MEDS: AQUAPHOR OINT 50 APPLIC/50 GM TUBE TOP SCH (21:00)
[2016-02-25] VITALS: BP 144/79; PULSE 84; RESP 20; TEMP 97.7; O2SAT 98
[2016-02-25] MEDS: ENOXAPARIN SODIUM 60 MG/0.6 ML SYRINGE SQ SCH ×2 (04:33→17:29)
[2016-02-25 08:00] VITALS: BP 138/72; PULSE 78; RESP 20; TEMP 96.9; O2SAT 98
[2016-02-25] MEDS: NYSTATIN 100,000 U/GM PWD 15 GM BTL TOPICAL SCH ×2 (09:00→21:11)
[2016-02-25] MEDS: POLYETHYLENE GLYCOL 17 GM PKG PO SCH (09:00)
[2016-02-25] MEDS: MULTIVITAMINS/IRON/MINERALS CHEWABLE TAB CHEW SCH (09:42)
[2016-02-25] MEDS: DOCUSATE SODIUM 50 MG/SENNA 8.6 MG TAB PO SCH ×2 (09:42→21:00)
[2016-02-25] MEDS: FAMOTIDINE 20 MG TAB PO SCH ×2 (09:43→21:09)
[2016-02-25] MEDS: CALCIUM/VITAMIN D 250 MG/125 U TAB PO SCH ×2 (09:43→21:09)
[2016-02-25] MEDS: METOPROLOL TARTRATE 25 MG TAB PO SCH ×2 (09:43→21:12)
[2016-02-25] MEDS: ARTIFICIAL TEARS OPTH SOLN 15 ML BTL EACH EYE SCH ×3 (09:43→17:29)
[2016-02-25 20:00] VITALS: BP 138/75; PULSE 80; RESP 20; TEMP 97.2; O2SAT 96
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
[2016-02-25] MEDS: AQUAPHOR OINT 50 APPLIC/50 GM TUBE TOP SCH (21:11)
[2016-02-26] MEDS: ENOXAPARIN SODIUM 60 MG/0.6 ML SYRINGE SQ SCH ×2 (04:00→22:15)
[2016-02-26 08:00] VITALS: BP 139/70; PULSE 90; RESP 20; TEMP 97.4; O2SAT 100
[2016-02-26] MEDS: POLYETHYLENE GLYCOL 17 GM PKG PO SCH (09:00)
[2016-02-26] MEDS: ARTIFICIAL TEARS OPTH SOLN 15 ML BTL EACH EYE SCH ×3 (09:00→22:17)
[2016-02-26 11:33] VITALS: BP 141/82; PULSE 83; RESP 18; TEMP 99.4; O2SAT 97
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
[2016-02-26] MEDS: FAMOTIDINE 20 MG TAB PO SCH ×2 (14:17→22:14)
[2016-02-26] MEDS: METOPROLOL TARTRATE 25 MG TAB PO SCH ×2 (14:18→22:15)
[2016-02-26] MEDS: MULTIVITAMINS/IRON/MINERALS CHEWABLE TAB CHEW SCH (14:18)
[2016-02-26] MEDS: CALCIUM/VITAMIN D 250 MG/125 U TAB PO SCH ×2 (14:18→22:14)
[2016-02-26] MEDS: DOCUSATE SODIUM 50 MG/SENNA 8.6 MG TAB PO SCH ×2 (14:18→22:14)
[2016-02-26 16:00] VITALS: BP 149/75; PULSE 83; RESP 20; TEMP 98.4; O2SAT 99
[2016-02-26 20:00] VITALS: BP 132/75; PULSE 80; RESP 22; TEMP 96.9; O2SAT 95
[2016-02-26] MEDS: AQUAPHOR OINT 50 APPLIC/50 GM TUBE TOP SCH (22:15)
[2016-02-26] MEDS: NYSTATIN 100,000 U/GM PWD 15 GM BTL TOPICAL SCH (22:15)
[2016-02-27] VITALS: BP 133/76; PULSE 101; RESP 20; TEMP 97.2; O2SAT 97
[2016-02-27] MEDS: ENOXAPARIN SODIUM 60 MG/0.6 ML SYRINGE SQ SCH ×2 (05:27→15:58)
[2016-02-27 08:00] VITALS: BP 121/65; PULSE 91; RESP 16; TEMP 99.5; O2SAT 95
[2016-02-27] MEDS: METOPROLOL TARTRATE 25 MG TAB PO SCH ×2 (08:24→20:02)
[2016-02-27] MEDS: MULTIVITAMINS/IRON/MINERALS CHEWABLE TAB CHEW SCH (08:24)
[2016-02-27] MEDS: CALCIUM/VITAMIN D 250 MG/125 U TAB PO SCH ×2 (08:24→20:02)
[2016-02-27] MEDS: ERGOCALCIFEROL (VIT D2) 50,000 UNIT CAP PO SCH (08:24)
[2016-02-27] MEDS: DOCUSATE SODIUM 50 MG/SENNA 8.6 MG TAB PO SCH ×2 (08:24→20:02)
[2016-02-27] MEDS: FAMOTIDINE 20 MG TAB PO SCH ×2 (08:24→20:02)
[2016-02-27] MEDS: NYSTATIN 100,000 U/GM PWD 15 GM BTL TOPICAL SCH ×2 (08:25→20:02)
[2016-02-27] MEDS: ARTIFICIAL TEARS OPTH SOLN 15 ML BTL EACH EYE SCH ×3 (08:25→17:00)
[2016-02-27] MEDS: POLYETHYLENE GLYCOL 17 GM PKG PO SCH (08:30)
[2016-02-27 12:00] VITALS: BP 134/83; PULSE 99; RESP 18; TEMP 98.8; O2SAT 95
[2016-02-27] MEDS: CARISOPRODOL 350 MG TAB PO PRN (12:02)
[2016-02-27 16:00] VITALS: BP 129/78; PULSE 90; RESP 20; TEMP 98.1; O2SAT 96
[2016-02-27 20:00] VITALS: BP 134/80; PULSE 95; RESP 18; TEMP 96.4; O2SAT 96
[2016-02-27] MEDS: AQUAPHOR OINT 50 APPLIC/50 GM TUBE TOP SCH (20:02)
[2016-02-28] VITALS: BP 135/77; PULSE 89; RESP 18; TEMP 98; O2SAT 95
[2016-02-28] MEDS: ENOXAPARIN SODIUM 60 MG/0.6 ML SYRINGE SQ SCH ×2 (03:54→16:18)
[2016-02-28 08:00] VITALS: BP 128/73; PULSE 89; RESP 19; TEMP 98.4; O2SAT 95
[2016-02-28] MEDS: POLYETHYLENE GLYCOL 17 GM PKG PO SCH (09:00)
[2016-02-28] MEDS: FAMOTIDINE 20 MG TAB PO SCH ×2 (09:10→21:00)
[2016-02-28] MEDS: METOPROLOL TARTRATE 25 MG TAB PO SCH ×2 (09:10→22:03)
[2016-02-28] MEDS: CALCIUM/VITAMIN D 250 MG/125 U TAB PO SCH ×2 (09:10→22:03)
[2016-02-28] MEDS: DOCUSATE SODIUM 50 MG/SENNA 8.6 MG TAB PO SCH ×2 (09:10→22:03)
[2016-02-28] MEDS: MULTIVITAMINS/IRON/MINERALS CHEWABLE TAB CHEW SCH (09:10)
[2016-02-28] MEDS: NYSTATIN 100,000 U/GM PWD 15 GM BTL TOPICAL SCH ×2 (09:11→21:00)
[2016-02-28] MEDS: ARTIFICIAL TEARS OPTH SOLN 15 ML BTL EACH EYE SCH ×3 (09:11→16:18)
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
[2016-02-28 20:00] VITALS: BP 126/86; PULSE 93; RESP 17; TEMP 97.6; O2SAT 98
[2016-02-28] MEDS: AQUAPHOR OINT 50 APPLIC/50 GM TUBE TOP SCH (21:00)
[2016-02-29 00:04] VITALS: BP 118/69; PULSE 80; RESP 20; TEMP 98.6; O2SAT 95
[2016-02-29] MEDS: ENOXAPARIN SODIUM 60 MG/0.6 ML SYRINGE SQ SCH ×2 (04:38→16:07)
[2016-02-29 08:00] VITALS: BP 129/82; PULSE 92; RESP 20; TEMP 97.5; O2SAT 97
[2016-02-29] MEDS: POLYETHYLENE GLYCOL 17 GM PKG PO SCH (09:00)
[2016-02-29] MEDS: METOPROLOL TARTRATE 25 MG TAB PO SCH ×2 (10:09→20:51)
[2016-02-29] MEDS: MULTIVITAMINS/IRON/MINERALS CHEWABLE TAB CHEW SCH (10:09)
[2016-02-29] MEDS: DOCUSATE SODIUM 50 MG/SENNA 8.6 MG TAB PO SCH ×2 (10:09→20:51)
[2016-02-29] MEDS: CALCIUM/VITAMIN D 250 MG/125 U TAB PO SCH ×2 (10:09→20:51)
[2016-02-29] MEDS: FAMOTIDINE 20 MG TAB PO SCH ×2 (10:09→20:51)
[2016-02-29] MEDS: NYSTATIN 100,000 U/GM PWD 15 GM BTL TOPICAL SCH ×2 (10:10→20:52)
[2016-02-29] MEDS: ARTIFICIAL TEARS OPTH SOLN 15 ML BTL EACH EYE SCH ×3 (10:10→16:07)
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
[2016-02-29 20:00] VITALS: BP 132/74; PULSE 88; RESP 18; TEMP 98.6; O2SAT 96
[2016-02-29] MEDS: AQUAPHOR OINT 50 APPLIC/50 GM TUBE TOP SCH (20:52)
[2016-03-01] VITALS: BP 131/86; PULSE 77; RESP 19; TEMP 98.4; O2SAT 95
[2016-03-01] MEDS: ENOXAPARIN SODIUM 60 MG/0.6 ML SYRINGE SQ SCH ×2 (02:31→16:24)
[2016-03-01 08:00] VITALS: BP 130/83; PULSE 88; RESP 18; TEMP 97.7; O2SAT 96
[2016-03-01] MEDS: NYSTATIN 100,000 U/GM PWD 15 GM BTL TOPICAL SCH ×2 (09:00→21:00)
[2016-03-01] MEDS: ARTIFICIAL TEARS OPTH SOLN 15 ML BTL EACH EYE SCH ×3 (09:00→16:24)
[2016-03-01] MEDS: DOCUSATE SODIUM 50 MG/SENNA 8.6 MG TAB PO SCH ×2 (09:21→22:17)
[2016-03-01] MEDS: CALCIUM/VITAMIN D 250 MG/125 U TAB PO SCH ×2 (09:21→22:17)
[2016-03-01] MEDS: FAMOTIDINE 20 MG TAB PO SCH ×2 (09:21→22:17)
[2016-03-01] MEDS: MULTIVITAMINS/IRON/MINERALS CHEWABLE TAB CHEW SCH (09:21)
[2016-03-01] MEDS: METOPROLOL TARTRATE 25 MG TAB PO SCH ×2 (09:21→22:17)
[2016-03-01 12:00] VITALS: BP 121/77; PULSE 89; RESP 16; TEMP 98.6; O2SAT 95
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
[2016-03-01] MEDS: CARISOPRODOL 350 MG TAB PO PRN (13:50)
[2016-03-01 16:00] VITALS: BP 118/67; PULSE 98; RESP 16; TEMP 95.3; O2SAT 98
[2016-03-01 20:00] VITALS: BP 112/66; PULSE 84; RESP 18; TEMP 98.1; O2SAT 94
[2016-03-01] MEDS: AQUAPHOR OINT 50 APPLIC/50 GM TUBE TOP SCH (21:00)
[2016-03-02] VITALS: BP 128/85; PULSE 93; RESP 18; TEMP 96.8; O2SAT 97
[2016-03-02] MEDS: ENOXAPARIN SODIUM 60 MG/0.6 ML SYRINGE SQ SCH ×2 (04:14→16:40)
[2016-03-02 08:00] VITALS: BP 129/74; PULSE 97; RESP 16; TEMP 97.7; O2SAT 96
[2016-03-02] MEDS: DOCUSATE SODIUM 50 MG/SENNA 8.6 MG TAB PO SCH ×2 (08:20→21:47)
[2016-03-02] MEDS: METOPROLOL TARTRATE 25 MG TAB PO SCH ×2 (08:20→21:46)
[2016-03-02] MEDS: FAMOTIDINE 20 MG TAB PO SCH ×2 (08:20→21:47)
[2016-03-02] MEDS: CALCIUM/VITAMIN D 250 MG/125 U TAB PO SCH ×2 (08:20→21:47)
[2016-03-02] MEDS: MULTIVITAMINS/IRON/MINERALS CHEWABLE TAB CHEW SCH (08:20)
[2016-03-02] MEDS: ARTIFICIAL TEARS OPTH SOLN 15 ML BTL EACH EYE SCH ×3 (08:21→16:41)
[2016-03-02] MEDS: NYSTATIN 100,000 U/GM PWD 15 GM BTL TOPICAL SCH ×2 (08:22→21:00)
[2016-03-02 12:00] VITALS: BP 131/71; PULSE 82; RESP 16; TEMP 96.4; O2SAT 95
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
[2016-03-02 16:00] VITALS: BP 128/76; PULSE 102; RESP 20; TEMP 96.5; O2SAT 95
[2016-03-02 20:00] VITALS: BP 135/81; PULSE 83; RESP 18; TEMP 98; O2SAT 98
[2016-03-02] MEDS: AQUAPHOR OINT 50 APPLIC/50 GM TUBE TOP SCH (21:00)
--- NOTE | 2016-03-02 21:42 | HHI.NSPN ---
History Chief Complaint: no verbal complaint Interval History 01/11/16 CT scan thoracic spine reveals some bony callous and osteophyte formation along the previous T8 9 fracture subluxation site with reduction of the distraction of the intervertebral disc space and foramen. 01/27/2016: Patient has been sitting on side of the bed with support during physical therapy . Exam Results Vital Signs Date Time Temp Pulse Resp B/P Pulse Ox O2 Delivery O2 Flow Rate FiO2 03/02/16 17:43 18 03/02/16 16:00 96.5 102 128/76 95 Intake and Output 03/01/16 03/01/16 03/02/16 08:00 16:00 00:00 Intake Total 360 ml 720 ml 480 ml Output Total 1300 ml 1300 ml 1350 ml Balance -940 ml -580 ml -870 ml Physical Examination Patient is lying in bed in no acute distress Alert and oriented x 3. Speech is clear. Sensation intact to light touch in upper extremities. Sensation moderately diminished to light touch left foot Lower extremity motor: 3/5 bilateral iliopsoas, quadriceps, hamstrings. 3+ right and 3 left tibialis anterior and gastrocsoleus No ankle clonus Right plantar response neutral Medical Decision Making Impression and Plan Impression: T8-9 fracture with distraction type injury. The patient's CT scan of 01/12/16 of the thoracic spine reveals further healing along the fracture site as noted above, with no residual distraction or any subluxation noted. Plan: Findings discussed at length with the patient today. Continue to mobilize to sitting position as tolerated. Weightbearing deferred to orthopedics. Plan follow-up CT scan to confirm stability at the thoracic fracture site now that he has been out of bed in a chair for the past couple weeks. The patient is very anxious when advised regarding the CT scan. He states that he is afraid of being moved onto the CT scanner. He refuses to have the CT scan done until Saturday, when there will be "more people available". I advised him that the CT scan could be done over the weekend, but he declines. He may need sedation for anxiety for the CT scan. Gilberto Herbert MD Mar 02, 2016:42
[2016-03-03] VITALS: BP 151/78; PULSE 69; RESP 20; TEMP 97.6; O2SAT 97
[2016-03-03] MEDS: ENOXAPARIN SODIUM 60 MG/0.6 ML SYRINGE SQ SCH ×2 (05:02→16:03)
[2016-03-03 08:00] VITALS: BP 138/76; PULSE 72; RESP 19; TEMP 98.1; O2SAT 97
[2016-03-03] MEDS: NYSTATIN 100,000 U/GM PWD 15 GM BTL TOPICAL SCH ×2 (09:00→21:01)
[2016-03-03] MEDS: METOPROLOL TARTRATE 25 MG TAB PO SCH ×2 (09:00→21:00)
[2016-03-03] MEDS: DOCUSATE SODIUM 50 MG/SENNA 8.6 MG TAB PO SCH ×2 (09:00→21:00)
[2016-03-03] MEDS: CALCIUM/VITAMIN D 250 MG/125 U TAB PO SCH ×2 (09:00→21:00)
[2016-03-03] MEDS: ARTIFICIAL TEARS OPTH SOLN 15 ML BTL EACH EYE SCH (09:00)
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
[2016-03-03] MEDS: DOCUSATE SODIUM 50 MG/SENNA 8.6 MG TAB PO PRN (16:04)
[2016-03-03] MEDS: MULTIVITAMINS/IRON/MINERALS CHEWABLE TAB CHEW SCH (16:04)
[2016-03-03] MEDS: FAMOTIDINE 20 MG TAB PO SCH ×2 (16:04→21:00)
[2016-03-03 20:17] VITALS: BP 139/86; PULSE 108; RESP 20; TEMP 97.2; O2SAT 97
[2016-03-03] MEDS: AQUAPHOR OINT 50 APPLIC/50 GM TUBE TOP SCH (21:00)
[2016-03-03 23:40] VITALS: BP 141/83; PULSE 87; RESP 18; TEMP 97.9; O2SAT 94
[2016-03-04] MEDS: ENOXAPARIN SODIUM 60 MG/0.6 ML SYRINGE SQ SCH ×2 (03:49→16:45)
[2016-03-04] MEDS: METOPROLOL TARTRATE 25 MG TAB PO SCH ×2 (09:14→20:54)
[2016-03-04] MEDS: FAMOTIDINE 20 MG TAB PO SCH ×2 (09:14→20:54)
[2016-03-04] MEDS: CALCIUM/VITAMIN D 250 MG/125 U TAB PO SCH ×2 (09:14→20:54)
[2016-03-04] MEDS: DOCUSATE SODIUM 50 MG/SENNA 8.6 MG TAB PO SCH ×2 (09:14→20:55)
[2016-03-04] MEDS: MULTIVITAMINS/IRON/MINERALS CHEWABLE TAB CHEW SCH (09:14)
[2016-03-04] MEDS: NYSTATIN 100,000 U/GM PWD 15 GM BTL TOPICAL SCH ×2 (09:16→20:55)
[2016-03-04 12:00] VITALS: BP 130/75; PULSE 94; RESP 20; TEMP 97.5; O2SAT 95
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
[2016-03-04 20:00] VITALS: BP 158/80; PULSE 79; RESP 22; TEMP 98.1; O2SAT 97
[2016-03-04] MEDS: AQUAPHOR OINT 50 APPLIC/50 GM TUBE TOP SCH (20:55)
[2016-03-05] VITALS: BP 150/92; PULSE 80; RESP 24; TEMP 97.9; O2SAT 98
[2016-03-05] MEDS: ENOXAPARIN SODIUM 60 MG/0.6 ML SYRINGE SQ SCH ×2 (02:37→15:40)
[2016-03-05 08:00] VITALS: BP 134/83; PULSE 88; RESP 20; TEMP 97.4; O2SAT 98
[2016-03-05] MEDS: NYSTATIN 100,000 U/GM PWD 15 GM BTL TOPICAL SCH ×2 (09:00→21:00)
[2016-03-05] MEDS: ERGOCALCIFEROL (VIT D2) 50,000 UNIT CAP PO SCH (09:39)
[2016-03-05] MEDS: CALCIUM/VITAMIN D 250 MG/125 U TAB PO SCH ×2 (09:39→20:34)
[2016-03-05] MEDS: MULTIVITAMINS/IRON/MINERALS CHEWABLE TAB CHEW SCH (09:39)
[2016-03-05] MEDS: FAMOTIDINE 20 MG TAB PO SCH ×2 (09:39→20:34)
[2016-03-05] MEDS: METOPROLOL TARTRATE 25 MG TAB PO SCH ×2 (09:40→20:34)
[2016-03-05] MEDS: DOCUSATE SODIUM 50 MG/SENNA 8.6 MG TAB PO SCH ×2 (09:40→20:35)
[2016-03-05 12:00] VITALS: BP 129/77; PULSE 105; RESP 20; TEMP 97; O2SAT 95
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
[2016-03-05 16:00] VITALS: BP 126/76; PULSE 94; RESP 20; TEMP 97.8; O2SAT 96
--- NOTE | 2016-03-05 19:51 | RADRPT ---
EXAM DATE/TIME: 03/05/2016 17:51 [place] COMPARISON: CT THORACIC SPINE W/O CONTRAST, January 11, 2016, 14:23. INDICATIONS : Follow up T9 fracture.. RADIATION DOSE: 47.08 CTDIvol (mGy) MEDICAL HISTORY : Cardiovascular disease. SURGICAL HISTORY : None. ENCOUNTER: Subsequent ACUITY: 4 - 6 months PAIN SCALE: 10/10 LOCATION: upper back TECHNIQUE: Volumetric scanning of the thoracic spine was performed. Multiplanar reconstructions in the sagittal , coronal and oblique axial planes were performed. Using automated exposure control and adjustment o f the mA and/or kV according to patient size, radiation dose was kept as low as reasonably achievable to obtain optimal diagnostic quality images. FINDINGS: There has been continued interval healing of the T9 compression fracture deformity with mild invagina tion of the anterior superior endplate and mild patchy sclerosis. The previously noted fracture line is no longer discretely visualized. There is no evidence of retropulsion. The other vertebral bodies remain intact. A mild scoliosis is again noted. The paravertebral soft tissues are now within normal limits. Stable hypertrophic changes are again noted surrounding the vertebral body at the T9 level. A small right pleural effusion is again noted. CONCLUSION: Continued interval healing of the T9 compression fracture deformity. Davie Avila MD on March 05, 2016 at 19:45 Board Certified Radiologist. This report was verified electronically.
[2016-03-05 20:00] VITALS: BP 133/67; PULSE 96; RESP 18; TEMP 97.9; O2SAT 98
[2016-03-05] MEDS: AQUAPHOR OINT 50 APPLIC/50 GM TUBE TOP SCH (21:00)
--- NOTE | 2016-03-05 21:27 | HHI.NSPN ---
History Chief Complaint: no verbal complaint Interval History 01/11/16 CT scan thoracic spine reveals some bony callous and osteophyte formation along the previous T8 9 fracture subluxation site with reduction of the distraction of the intervertebral disc space and foramen. 01/27/2016: Patient has been sitting on side of the bed with support during physical therapy 03/05/16: Complains of intermittent low back pain. Persistent diffuse paresthesias in the lower extremities . Exam Results Vital Signs Date Time Temp Pulse Resp B/P Pulse Ox O2 Delivery O2 Flow Rate FiO2 03/05/16 16:00 97.8 94 20 126/76 96 Intake and Output 03/04/16 03/04/16 03/05/16 08:00 16:00 00:00 Intake Total 580 ml 480 ml Output Total 1000 ml 1100 ml Balance -420 ml -620 ml Physical Examination Patient is lying in bed in no acute distress Alert and oriented x 3. Speech is clear. Sensation intact to light touch in upper extremities. Sensation moderately diminished to light touch left foot and to a lesser extent diffuse in the left greater than right greater than thighs. Lower extremity motor: 3+/5 bilateral iliopsoas, quadriceps, hamstrings. 4 right and 3 left tibialis anterior and gastrocsoleus No ankle clonus Right plantar response neutral Lab, Micro, Other Results 03/05/16 CT scan thoracic spine images reviewed by the undersigned. There is further ossification surrounding the T8-9 level with near spontaneous fusion. No canal compromise. No subluxation. Thoracic Spine CT 03/05/16 0000 Signed Impressions: Service Date/Time: Saturday, March 05, 2016 17:51 - CONCLUSION: Continued interval healing of the T9 compression fracture deformity. Davie Avila MD Medical Decision Making Impression and Plan Impression: T8-9 fracture with distraction type injury. The patient's CT scan of 03/05/16 of the thoracic spine reveals further healing along the fracture site as noted above, with no residual distraction or any subluxation noted. Plan: Findings discussed at length with the patient today. Continue to mobilize to sitting position as tolerated. Weightbearing deferred to orthopedics. The T8 9 fracture site appears stable. He may continue to get out of bed without a brace. Activity precautions and signs and symptoms to watch for fully discussed with the patient. He is stable from a neurosurgical standpoint. No further neurosurgical intervention planned. No neurosurgical follow-up required at this time. Please reconsult if any further problems develop. Gilberto Herbert MD Mar 05, 2016 21:27
[2016-03-06] VITALS: BP 133/66; PULSE 93; RESP 18; TEMP 99; O2SAT 97
[2016-03-06] MEDS: ENOXAPARIN SODIUM 60 MG/0.6 ML SYRINGE SQ SCH ×2 (04:57→16:14)
[2016-03-06 08:00] VITALS: BP 139/82; PULSE 67; RESP 16; TEMP 96.6; O2SAT 97
[2016-03-06] MEDS: FAMOTIDINE 20 MG TAB PO SCH ×2 (08:55→22:34)
[2016-03-06] MEDS: MULTIVITAMINS/IRON/MINERALS CHEWABLE TAB CHEW SCH (08:55)
[2016-03-06] MEDS: METOPROLOL TARTRATE 25 MG TAB PO SCH ×2 (08:55→22:34)
[2016-03-06] MEDS: CALCIUM/VITAMIN D 250 MG/125 U TAB PO SCH ×2 (08:55→22:34)
[2016-03-06] MEDS: DOCUSATE SODIUM 50 MG/SENNA 8.6 MG TAB PO SCH ×2 (08:55→22:34)
[2016-03-06] MEDS: NYSTATIN 100,000 U/GM PWD 15 GM BTL TOPICAL SCH ×2 (09:00→22:36)
[2016-03-06 12:00] VITALS: BP 129/80; PULSE 91; RESP 16; TEMP 98.1; O2SAT 95
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
[2016-03-06 16:00] VITALS: BP 134/83; PULSE 70; RESP 18; TEMP 96.5; O2SAT 98
[2016-03-06 20:00] VITALS: BP 139/85; PULSE 77; RESP 20; TEMP 96.6; O2SAT 95
[2016-03-06] MEDS: AQUAPHOR OINT 50 APPLIC/50 GM TUBE TOP SCH (21:00)
[2016-03-07 00:08] VITALS: BP 134/85; PULSE 70; RESP 20; TEMP 96.4; O2SAT 98
[2016-03-07] MEDS: ENOXAPARIN SODIUM 60 MG/0.6 ML SYRINGE SQ SCH ×2 (03:49→16:39)
[2016-03-07 08:00] VITALS: BP 143/91; PULSE 71; RESP 18; TEMP 97.1; O2SAT 96
[2016-03-07] MEDS: FAMOTIDINE 20 MG TAB PO SCH ×2 (08:23→20:55)
[2016-03-07] MEDS: CALCIUM/VITAMIN D 250 MG/125 U TAB PO SCH ×2 (08:23→20:55)
[2016-03-07] MEDS: METOPROLOL TARTRATE 25 MG TAB PO SCH ×2 (08:24→20:55)
[2016-03-07] MEDS: DOCUSATE SODIUM 50 MG/SENNA 8.6 MG TAB PO SCH ×2 (08:24→20:56)
[2016-03-07] MEDS: MULTIVITAMINS/IRON/MINERALS CHEWABLE TAB CHEW SCH (08:24)
[2016-03-07] MEDS: ARTIFICIAL TEARS OPTH SOLN 15 ML BTL EACH EYE PRN (08:25)
[2016-03-07] MEDS: NYSTATIN 100,000 U/GM PWD 15 GM BTL TOPICAL SCH ×2 (08:27→20:56)
[2016-03-07 12:00] VITALS: BP 132/82; PULSE 72; RESP 16; TEMP 97; O2SAT 98
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
[2016-03-07 16:00] VITALS: BP 122/78; PULSE 74; RESP 18; TEMP 97.6; O2SAT 98
[2016-03-07] MEDS: diphenhydrAMINE HCL 25 MG CAP PO PRN (17:54)
[2016-03-07] MEDS: CARISOPRODOL 350 MG TAB PO PRN (17:54)
[2016-03-07 20:00] VITALS: BP 135/79; PULSE 95; RESP 20; TEMP 96.7; O2SAT 98
[2016-03-07] MEDS: AQUAPHOR OINT 50 APPLIC/50 GM TUBE TOP SCH (20:56)
[2016-03-08] VITALS: BP 133/78; PULSE 67; RESP 18; TEMP 98.1; O2SAT 97
[2016-03-08] MEDS: ENOXAPARIN SODIUM 60 MG/0.6 ML SYRINGE SQ SCH (05:33)
[2016-03-08 08:00] VITALS: BP 135/86; PULSE 77; RESP 20; TEMP 95.8; O2SAT 96
[2016-03-08] MEDS: NYSTATIN 100,000 U/GM PWD 15 GM BTL TOPICAL SCH ×2 (09:00→21:00)
[2016-03-08] MEDS: CALCIUM/VITAMIN D 250 MG/125 U TAB PO SCH ×2 (09:48→22:42)
[2016-03-08] MEDS: FAMOTIDINE 20 MG TAB PO SCH ×2 (09:48→22:42)
[2016-03-08] MEDS: DOCUSATE SODIUM 50 MG/SENNA 8.6 MG TAB PO SCH ×2 (09:48→22:42)
[2016-03-08] MEDS: MULTIVITAMINS/IRON/MINERALS CHEWABLE TAB CHEW SCH (09:48)
[2016-03-08] MEDS: METOPROLOL TARTRATE 25 MG TAB PO SCH ×2 (09:48→22:42)
[2016-03-08 12:00] VITALS: BP 143/82; PULSE 75; RESP 20; TEMP 96.8; O2SAT 95
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
[2016-03-08 16:00] VITALS: BP 132/74; PULSE 61; RESP 20; TEMP 95.9; O2SAT 95
[2016-03-08 20:00] VITALS: BP 133/90; PULSE 69; RESP 18; TEMP 96.8; O2SAT 97
[2016-03-08] MEDS: AQUAPHOR OINT 50 APPLIC/50 GM TUBE TOP SCH (21:00)
[2016-03-09] VITALS: BP 139/90; PULSE 66; RESP 20; TEMP 97.7; O2SAT 96
[2016-03-09] MEDS: ENOXAPARIN SODIUM 60 MG/0.6 ML SYRINGE SQ SCH ×3 (04:00→16:07)
[2016-03-09 08:00] VITALS: BP 169/104; PULSE 68; RESP 18; TEMP 97.4; O2SAT 96
[2016-03-09] MEDS: DOCUSATE SODIUM 50 MG/SENNA 8.6 MG TAB PO SCH ×2 (10:00→21:36)
[2016-03-09] MEDS: MULTIVITAMINS/IRON/MINERALS CHEWABLE TAB CHEW SCH (10:00)
[2016-03-09] MEDS: METOPROLOL TARTRATE 25 MG TAB PO SCH ×2 (10:00→21:36)
[2016-03-09] MEDS: CALCIUM/VITAMIN D 250 MG/125 U TAB PO SCH ×2 (10:00→21:36)
[2016-03-09] MEDS: FAMOTIDINE 20 MG TAB PO SCH ×2 (10:00→21:36)
[2016-03-09] MEDS: NYSTATIN 100,000 U/GM PWD 15 GM BTL TOPICAL SCH ×2 (10:01→21:00)
[2016-03-09 12:00] VITALS: BP 166/93; PULSE 71; RESP 17; TEMP 96.8; O2SAT 94
--- NOTE | 2016-03-09 15:53 | RADRPT ---
EXAM DATE/TIME: 03/09/2016 14:56 [facility] COMPARISON: CT KNEE LEFT W/O CONTRAST, January 11, 2016, 14:16. INDICATIONS : Left knee fracture. RADIATION DOSE: 17.91 CTDIvol (mGy) MEDICAL HISTORY : Hypertension. Diabetes mellitus type 2. SURGICAL HISTORY : Left knee ENCOUNTER: Subsequent ACUITY: 4 - 6 months PAIN SCALE: 5/10 LOCATION: Left knee TECHNIQUE: Volumetric scanning of the knee was performed. Using automated exposure control and adjustment of th e mA and/or kV according to patient size, radiation dose was kept as low as reasonably achievable to obtain optimal diagnostic quality images. FINDINGS: The patient is status post ORIF of comminuted fracture of the left distal femur. The hardware appears to be stable in position. The comminuted fracture of the distal femur is incompletely healed at thi s time. There are several small bone fragments in the expected regions of intracondylar notch. The l argest fragment noted inferiorly and laterally measures 11 mm and may be located within the joint spa ce. There is a focal lucency involving the posterior medial aspects of the tibial plateau with marke d cortical thinning of the articular surface. The patella is unchanged in appearance compared to the previous examination. CONCLUSION: 1. Stable incompletely healed comminuted fracture involving the distal femur with hardware in good po sition status post ORIF. 2. Several bone fragments in the region of the intracondylar notch with the largest located inferior and laterally measuring 11 mm. These fragments likely are intraarticular in location. 3. Focal lucency involving the posterior medial aspect of the tibial plateau with focal cortical thin kenia. Zacarias Romero MD on March 09, 2016 at 15:31 Board Certified Radiologist. This report was verified electronically.
[2016-03-09 16:00] VITALS: BP 125/73; PULSE 87; RESP 19; TEMP 96.2; O2SAT 96
[2016-03-09 20:00] VITALS: BP 155/80; PULSE 67; RESP 18; TEMP 96.6; O2SAT 95
[2016-03-09] MEDS: AQUAPHOR OINT 50 APPLIC/50 GM TUBE TOP SCH (21:00)
[2016-03-10] MEDS: ENOXAPARIN SODIUM 60 MG/0.6 ML SYRINGE SQ SCH ×2 (04:51→16:26)
[2016-03-10 08:00] VITALS: BP 153/89; PULSE 74; RESP 18; TEMP 98.4; O2SAT 98
[2016-03-10] MEDS: LACTULOSE SYRUP 20 GM/30 ML CUP PO PRN (09:20)
[2016-03-10] MEDS: MULTIVITAMINS/IRON/MINERALS CHEWABLE TAB CHEW SCH (09:20)
[2016-03-10] MEDS: FAMOTIDINE 20 MG TAB PO SCH ×2 (09:21→21:44)
[2016-03-10] MEDS: NYSTATIN 100,000 U/GM PWD 15 GM BTL TOPICAL SCH ×2 (09:21→21:00)
[2016-03-10] MEDS: METOPROLOL TARTRATE 25 MG TAB PO SCH ×2 (09:21→21:43)
[2016-03-10] MEDS: CALCIUM/VITAMIN D 250 MG/125 U TAB PO SCH ×2 (09:21→21:43)
[2016-03-10] MEDS: DOCUSATE SODIUM 50 MG/SENNA 8.6 MG TAB PO SCH ×2 (09:21→21:44)
[2016-03-10] MEDS: ARTIFICIAL TEARS OPTH SOLN 15 ML BTL EACH EYE PRN ×2 (09:22→14:35)
[2016-03-10 12:00] VITALS: BP 175/54; PULSE 93; RESP 20; TEMP 98.3; O2SAT 95
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
[2016-03-10 16:00] VITALS: BP 162/98; PULSE 95; RESP 20; TEMP 96.9; O2SAT 96
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
[2016-03-10 20:00] VITALS: BP 135/88; PULSE 82; RESP 20; TEMP 97.4; O2SAT 97
[2016-03-10] MEDS: AQUAPHOR OINT 50 APPLIC/50 GM TUBE TOP SCH (21:00)
[2016-03-11] MEDS: ENOXAPARIN SODIUM 60 MG/0.6 ML SYRINGE SQ SCH ×2 (04:24→16:42)
[2016-03-11 08:00] VITALS: BP 140/92; PULSE 77; RESP 17; TEMP 96.9; O2SAT 98
[2016-03-11] MEDS: METOPROLOL TARTRATE 25 MG TAB PO SCH ×2 (09:02→22:18)
[2016-03-11] MEDS: DOCUSATE SODIUM 50 MG/SENNA 8.6 MG TAB PO SCH ×2 (09:02→22:18)
[2016-03-11] MEDS: MULTIVITAMINS/IRON/MINERALS CHEWABLE TAB CHEW SCH (09:02)
[2016-03-11] MEDS: FAMOTIDINE 20 MG TAB PO SCH ×2 (09:02→22:18)
[2016-03-11] MEDS: CALCIUM/VITAMIN D 250 MG/125 U TAB PO SCH ×2 (09:02→22:18)
[2016-03-11] MEDS: ARTIFICIAL TEARS OPTH SOLN 15 ML BTL EACH EYE PRN (09:03)
[2016-03-11] MEDS: NYSTATIN 100,000 U/GM PWD 15 GM BTL TOPICAL SCH ×2 (09:03→21:00)
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
[2016-03-11 11:59] VITALS: BP 159/72; PULSE 76; RESP 20; TEMP 97.4; O2SAT 98
[2016-03-11 16:00] VITALS: BP 147/88; PULSE 99; RESP 20; TEMP 97.9; O2SAT 98
[2016-03-11 20:00] VITALS: BP 149/91; PULSE 78; RESP 20; TEMP 96; O2SAT 98
[2016-03-11] MEDS: AQUAPHOR OINT 50 APPLIC/50 GM TUBE TOP SCH (21:00)
[2016-03-12] MEDS: ENOXAPARIN SODIUM 60 MG/0.6 ML SYRINGE SQ SCH ×2 (04:59→18:56)
--- NOTE | 2016-03-12 07:09 | PD.ORT.PN ---
Subjective Subjective Remarks s/p ORIF left distal femur fx on 10/11/15 (5months) reports doing well. no pain. no changes. Objective Vitals Vital Signs Date Time Temp Pulse Resp B/P Pulse Ox O2 Delivery O2 Flow Rate FiO2 03/11/16 20:00 96.0 78 20 149/91 98 03/11/16 17:44 18 03/11/16 16:00 97.9 99 20 147/88 98 03/11/16 11:59 97.4 76 20 159/72 98 03/11/16 08:00 96.9 77 17 140/92 98 I/O 03/11/16 03/11/16 03/11/16 03/12/16 03/12/16 03/12/16 07:00 15:00 23:00 07:00 15:00 23:00 Intake Total 960 ml 1340 ml 240 ml 240 ml Output Total 2050 ml 1400 ml 850 ml 650 ml Balance -1090 ml -60 ml -610 ml -410 ml Intake Oral 960 ml 1340 ml 240 ml 240 ml IV Total 0 ml Output Urine Total 2050 ml 1400 ml 850 ml 650 ml # Bowel Movements 0 Objective Remarks LLE: morbidly obese. +cap refill. anterior leg wounds granulated in well and healing appropriately. posterior thigh wound directly in skin fold. no purulence. dry dressing present Assessment & Plan Assessment and Plan 1) Left Distal femur Fx s/p ORIF on 10/11/15 -CT scan reviewed and shows sufficient healing -progress to WBAT -ortho clear for discharge once ambulating safely 2) Spinal Fx - Dr Herbert to manage 3) Left Tibia wounds -will proceed with CT scan of left femur and spine today. patient agreeable. further PT instructions to follow depending on CT scan results of knee Lewis Carey Mar 12, 2016 07:09
[2016-03-12 08:00] VITALS: BP 130/76; PULSE 73; RESP 18; TEMP 98.1; O2SAT 99
[2016-03-12] MEDS: ERGOCALCIFEROL (VIT D2) 50,000 UNIT CAP PO SCH (09:00)
[2016-03-12] MEDS: FAMOTIDINE 20 MG TAB PO SCH ×2 (09:47→20:01)
[2016-03-12] MEDS: CALCIUM/VITAMIN D 250 MG/125 U TAB PO SCH ×2 (09:47→20:01)
[2016-03-12] MEDS: DOCUSATE SODIUM 50 MG/SENNA 8.6 MG TAB PO SCH ×2 (09:47→20:01)
[2016-03-12] MEDS: MULTIVITAMINS/IRON/MINERALS CHEWABLE TAB CHEW SCH (09:47)
[2016-03-12] MEDS: METOPROLOL TARTRATE 25 MG TAB PO SCH ×2 (09:47→20:01)
[2016-03-12] MEDS: NYSTATIN 100,000 U/GM PWD 15 GM BTL TOPICAL SCH ×2 (09:49→20:02)
[2016-03-12 12:00] VITALS: BP 133/81; PULSE 71; RESP 18; TEMP 98.6; O2SAT 97
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
[2016-03-12 16:00] VITALS: BP 143/92; PULSE 83; RESP 20; TEMP 98.8; O2SAT 98
[2016-03-12 20:00] VITALS: BP 142/95; PULSE 78; RESP 20; TEMP 96.3; O2SAT 96
[2016-03-12] MEDS: AQUAPHOR OINT 50 APPLIC/50 GM TUBE TOP SCH (20:02)
[2016-03-13] MEDS: ENOXAPARIN SODIUM 60 MG/0.6 ML SYRINGE SQ SCH ×2 (04:50→16:46)
[2016-03-13 08:32] VITALS: BP 140/80; PULSE 70; RESP 18; TEMP 96.9; O2SAT 98
[2016-03-13] MEDS: NYSTATIN 100,000 U/GM PWD 15 GM BTL TOPICAL SCH ×2 (09:00→20:01)
[2016-03-13] MEDS: METOPROLOL TARTRATE 25 MG TAB PO SCH ×2 (10:37→20:01)
[2016-03-13] MEDS: MULTIVITAMINS/IRON/MINERALS CHEWABLE TAB CHEW SCH (10:37)
[2016-03-13] MEDS: CALCIUM/VITAMIN D 250 MG/125 U TAB PO SCH ×2 (10:37→20:01)
[2016-03-13] MEDS: FAMOTIDINE 20 MG TAB PO SCH ×2 (10:37→20:01)
[2016-03-13] MEDS: DOCUSATE SODIUM 50 MG/SENNA 8.6 MG TAB PO SCH ×2 (10:37→20:01)
[2016-03-13 12:56] VITALS: BP 134/76; PULSE 80; RESP 18; TEMP 96.6; O2SAT 96
[2016-03-13 17:17] VITALS: BP 146/70; PULSE 86; RESP 18; TEMP 98.5; O2SAT 96
[2016-03-13 20:00] VITALS: BP 134/81; PULSE 88; RESP 18; TEMP 97.4; O2SAT 98
[2016-03-13] MEDS: AQUAPHOR OINT 50 APPLIC/50 GM TUBE TOP SCH (20:01)
[2016-03-14] VITALS: BP 121/66; PULSE 74; RESP 17; TEMP 98.3; O2SAT 96
[2016-03-14] MEDS: ENOXAPARIN SODIUM 60 MG/0.6 ML SYRINGE SQ SCH ×2 (04:03→16:00)
[2016-03-14 08:00] VITALS: BP 140/80; PULSE 71; RESP 20; TEMP 97.4; O2SAT 99
[2016-03-14] MEDS: NYSTATIN 100,000 U/GM PWD 15 GM BTL TOPICAL SCH ×2 (09:00→20:08)
[2016-03-14] MEDS: DOCUSATE SODIUM 50 MG/SENNA 8.6 MG TAB PO SCH ×2 (10:06→20:07)
[2016-03-14] MEDS: MULTIVITAMINS/IRON/MINERALS CHEWABLE TAB CHEW SCH (10:06)
[2016-03-14] MEDS: FAMOTIDINE 20 MG TAB PO SCH ×2 (10:06→20:07)
[2016-03-14] MEDS: METOPROLOL TARTRATE 25 MG TAB PO SCH ×2 (10:07→20:08)
[2016-03-14] MEDS: CALCIUM/VITAMIN D 250 MG/125 U TAB PO SCH ×2 (10:07→20:08)
[2016-03-14 12:00] VITALS: BP 144/82; PULSE 80; RESP 17; TEMP 97.8; O2SAT 100
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
[2016-03-14 16:00] VITALS: BP_SYST 118; BP_SYST 147; BP_DIAS 58; PULSE 82; RESP 19; TEMP 98.1; O2SAT 100; O2SAT 98
[2016-03-14 20:00] VITALS: BP 133/77; PULSE 77; RESP 20; TEMP 97.2; O2SAT 97
[2016-03-14] MEDS: AQUAPHOR OINT 50 APPLIC/50 GM TUBE TOP SCH (20:08)
[2016-03-15] VITALS: BP 133/68; PULSE 77; RESP 19; TEMP 98; O2SAT 98
[2016-03-15] MEDS: ENOXAPARIN SODIUM 60 MG/0.6 ML SYRINGE SQ SCH ×2 (04:48→16:32)
[2016-03-15] MEDS: DOCUSATE SODIUM 50 MG/SENNA 8.6 MG TAB PO SCH ×2 (08:05→21:30)
[2016-03-15] MEDS: MULTIVITAMINS/IRON/MINERALS CHEWABLE TAB CHEW SCH (08:05)
[2016-03-15] MEDS: CALCIUM/VITAMIN D 250 MG/125 U TAB PO SCH ×2 (08:05→21:29)
[2016-03-15] MEDS: FAMOTIDINE 20 MG TAB PO SCH ×2 (08:05→21:30)
[2016-03-15] MEDS: METOPROLOL TARTRATE 25 MG TAB PO SCH ×2 (08:05→21:30)
[2016-03-15] MEDS: NYSTATIN 100,000 U/GM PWD 15 GM BTL TOPICAL SCH ×2 (08:06→21:00)
[2016-03-15 08:41] VITALS: BP 137/84; PULSE 74; RESP 20; TEMP 96.9; O2SAT 98
[2016-03-15 12:00] VITALS: BP 129/85; PULSE 71; RESP 18; TEMP 98.1; O2SAT 98
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
[2016-03-15 16:04] VITALS: BP 153/87; PULSE 73; RESP 20; TEMP 97.7; O2SAT 99
[2016-03-15 20:00] VITALS: BP 159/84; PULSE 80; RESP 17; TEMP 98.7; O2SAT 98
[2016-03-15] MEDS: AQUAPHOR OINT 50 APPLIC/50 GM TUBE TOP SCH (21:00)
[2016-03-16] VITALS: BP 139/76; PULSE 76; RESP 17; TEMP 98; O2SAT 98
[2016-03-16] MEDS: ENOXAPARIN SODIUM 60 MG/0.6 ML SYRINGE SQ SCH ×3 (04:00→16:26)
[2016-03-16] MEDS: LACTULOSE SYRUP 20 GM/30 ML CUP PO PRN (04:58)
[2016-03-16 08:00] VITALS: BP 144/91; PULSE 81; RESP 20; TEMP 98.5; O2SAT 99
[2016-03-16] MEDS: FAMOTIDINE 20 MG TAB PO SCH ×2 (08:36→20:50)
[2016-03-16] MEDS: CALCIUM/VITAMIN D 250 MG/125 U TAB PO SCH ×2 (08:36→20:50)
[2016-03-16] MEDS: DOCUSATE SODIUM 50 MG/SENNA 8.6 MG TAB PO SCH ×2 (08:36→20:50)
[2016-03-16] MEDS: MULTIVITAMINS/IRON/MINERALS CHEWABLE TAB CHEW SCH (08:36)
[2016-03-16] MEDS: METOPROLOL TARTRATE 25 MG TAB PO SCH ×2 (08:36→20:50)
[2016-03-16] MEDS: NYSTATIN 100,000 U/GM PWD 15 GM BTL TOPICAL SCH ×2 (08:36→20:51)
[2016-03-16 11:49] VITALS: BP 146/97; PULSE 68; RESP 18; TEMP 98.2; O2SAT 97
[2016-03-16 16:07] VITALS: BP 134/92; PULSE 74; RESP 20; TEMP 97.8; O2SAT 95
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
[2016-03-16 20:00] VITALS: BP 122/84; PULSE 104; RESP 20; TEMP 98.9; O2SAT 97
[2016-03-16] MEDS: AQUAPHOR OINT 50 APPLIC/50 GM TUBE TOP SCH (20:51)
[2016-03-17] MEDS: ENOXAPARIN SODIUM 60 MG/0.6 ML SYRINGE SQ SCH ×2 (06:02→15:59)
[2016-03-17 08:00] VITALS: BP 141/71; PULSE 76; RESP 16; TEMP 97; O2SAT 97
[2016-03-17] MEDS: MULTIVITAMINS/IRON/MINERALS CHEWABLE TAB CHEW SCH (08:24)
[2016-03-17] MEDS: METOPROLOL TARTRATE 25 MG TAB PO SCH ×2 (08:24→21:57)
[2016-03-17] MEDS: FAMOTIDINE 20 MG TAB PO SCH ×2 (08:24→21:57)
[2016-03-17] MEDS: DOCUSATE SODIUM 50 MG/SENNA 8.6 MG TAB PO SCH ×2 (08:24→21:57)
[2016-03-17] MEDS: CALCIUM/VITAMIN D 250 MG/125 U TAB PO SCH ×2 (08:24→21:57)
[2016-03-17] MEDS: NYSTATIN 100,000 U/GM PWD 15 GM BTL TOPICAL SCH ×2 (08:28→21:00)
[2016-03-17 12:00] VITALS: BP 166/69; PULSE 71; RESP 17; TEMP 98.6; O2SAT 97
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
[2016-03-17] MEDS: CARISOPRODOL 350 MG TAB PO PRN (15:59)
[2016-03-17 16:00] VITALS: BP 141/95; PULSE 75; RESP 16; TEMP 97.7; O2SAT 97
[2016-03-17 16:21] LABS: AUTOMATED NEUTROPHIL # 4.8 TH/MM3 (1.8-7.7); BASOPHIL % 0.6 % (0.0-2.0); EOSINOPHIL # 0.3 TH/MM3 (0-0.4); EOSINOPHIL % 4.1 % (0.0-4.0); HEMATOCRIT 35.2 % (39.0-51.0); LYMPH % 25.4 % (9.0-44.0); LYMPHOCYTE # 1.9 TH/MM3 (1.0-4.8); MEAN CELL VOLUME 72.5 FL (80.0-100.0); MEAN CORPUSCULAR HEMOGLOBIN 23.4 PG (27.0-34.0); MEAN CORPUSCULAR HGB CONC 32.3 % (32.0-36.0); NEUT % 64.9 % (16.0-70.0); PLATELET COUNT 206 TH/MM3 (150-450); RED BLOOD COUNT 4.86 MIL/MM3 (4.50-5.90); RED CELL DISTRIBUTION WIDTH 20.9 % (11.6-17.2); WHITE BLOOD COUNT 7.5 TH/MM3 (4.0-11.0)
[2016-03-17 16:29] LABS: HEMO FLAGS AUTO DIFF
[2016-03-17 16:49] LABS: BICARBONATE 31.2 MEQ/L (21.0-32.0); MAGNESIUM 2.3 MG/DL (1.5-2.5); POTASSIUM 3.9 MEQ/L (3.5-5.1)
[2016-03-17 17:48] LABS: PLATELET ESTIMATE SMEAR NORMAL (NORMAL); PLATELET MORPHOLOGY NORMAL (NORMAL); SCAN/DIFF AUTO DIFF CONFIRMED
[2016-03-17 20:00] VITALS: BP 130/74; PULSE 74; RESP 20; TEMP 97.7; O2SAT 96
[2016-03-17] MEDS: AQUAPHOR OINT 50 APPLIC/50 GM TUBE TOP SCH (21:00)
[2016-03-18] MEDS: ENOXAPARIN SODIUM 60 MG/0.6 ML SYRINGE SQ SCH ×2 (04:05→15:03)
[2016-03-18 08:00] VITALS: BP 131/71; PULSE 69; RESP 16; TEMP 96.8; O2SAT 98
[2016-03-18] MEDS: MULTIVITAMINS/IRON/MINERALS CHEWABLE TAB CHEW SCH (08:23)
[2016-03-18] MEDS: METOPROLOL TARTRATE 25 MG TAB PO SCH ×2 (08:23→21:11)
[2016-03-18] MEDS: DOCUSATE SODIUM 50 MG/SENNA 8.6 MG TAB PO SCH ×2 (08:23→21:12)
[2016-03-18] MEDS: CALCIUM/VITAMIN D 250 MG/125 U TAB PO SCH ×2 (08:23→21:12)
[2016-03-18] MEDS: FAMOTIDINE 20 MG TAB PO SCH ×2 (08:23→21:12)
[2016-03-18] MEDS: NYSTATIN 100,000 U/GM PWD 15 GM BTL TOPICAL SCH ×2 (08:25→21:13)
[2016-03-18 12:00] VITALS: BP 129/72; PULSE 88; RESP 17; TEMP 97.1; O2SAT 97
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
[2016-03-18 20:00] VITALS: BP 138/81; PULSE 101; RESP 20; TEMP 97.8; O2SAT 96
[2016-03-18] MEDS: AQUAPHOR OINT 50 APPLIC/50 GM TUBE TOP SCH (21:12)
[2016-03-19] VITALS: BP 128/78; PULSE 72; RESP 18; TEMP 97.6; O2SAT 97
[2016-03-19] MEDS: ENOXAPARIN SODIUM 60 MG/0.6 ML SYRINGE SQ SCH ×2 (06:08→16:09)
[2016-03-19 08:00] VITALS: BP 131/75; PULSE 79; RESP 18; TEMP 97.1; O2SAT 96
[2016-03-19] MEDS: FAMOTIDINE 20 MG TAB PO SCH ×2 (09:00→22:02)
[2016-03-19] MEDS: NYSTATIN 100,000 U/GM PWD 15 GM BTL TOPICAL SCH ×2 (09:00→22:03)
[2016-03-19] MEDS: DOCUSATE SODIUM 50 MG/SENNA 8.6 MG TAB PO SCH ×2 (09:00→22:02)
[2016-03-19] MEDS: CALCIUM/VITAMIN D 250 MG/125 U TAB PO SCH ×2 (09:00→22:02)
[2016-03-19] MEDS: ERGOCALCIFEROL (VIT D2) 50,000 UNIT CAP PO SCH (09:00)
[2016-03-19] MEDS: MULTIVITAMINS/IRON/MINERALS CHEWABLE TAB CHEW SCH (09:01)
[2016-03-19] MEDS: METOPROLOL TARTRATE 25 MG TAB PO SCH ×2 (09:01→22:02)
[2016-03-19 12:00] VITALS: BP 128/68; PULSE 74; RESP 18; TEMP 97.4; O2SAT 96
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
[2016-03-19 16:00] VITALS: BP 126/68; PULSE 72; RESP 18; TEMP 97.2; O2SAT 97
[2016-03-19 20:00] VITALS: BP 129/68; PULSE 70; RESP 20; TEMP 96.8; O2SAT 96
[2016-03-19] MEDS: AQUAPHOR OINT 50 APPLIC/50 GM TUBE TOP SCH (22:03)
[2016-03-20] VITALS: BP 132/70; PULSE 74; RESP 19; TEMP 97.9; O2SAT 98
[2016-03-20] MEDS: ENOXAPARIN SODIUM 60 MG/0.6 ML SYRINGE SQ SCH ×2 (04:43→16:07)
[2016-03-20 08:00] VITALS: BP 156/89; PULSE 80; RESP 17; TEMP 96.9; O2SAT 96
[2016-03-20] MEDS: DOCUSATE SODIUM 50 MG/SENNA 8.6 MG TAB PO SCH ×2 (08:10→20:28)
[2016-03-20] MEDS: MULTIVITAMINS/IRON/MINERALS CHEWABLE TAB CHEW SCH (08:11)
[2016-03-20] MEDS: NYSTATIN 100,000 U/GM PWD 15 GM BTL TOPICAL SCH ×2 (08:11→20:29)
[2016-03-20] MEDS: FAMOTIDINE 20 MG TAB PO SCH ×2 (08:11→20:28)
[2016-03-20] MEDS: CALCIUM/VITAMIN D 250 MG/125 U TAB PO SCH ×2 (08:11→20:28)
[2016-03-20] MEDS: METOPROLOL TARTRATE 25 MG TAB PO SCH ×2 (08:11→20:29)
[2016-03-20 12:00] VITALS: BP 136/85; PULSE 80; RESP 18; TEMP 97.4; O2SAT 94
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
[2016-03-20 16:00] VITALS: BP 133/69; PULSE 85; RESP 19; TEMP 97.6; O2SAT 99
[2016-03-20 20:00] VITALS: BP 138/69; PULSE 79; RESP 20; TEMP 98; O2SAT 98
[2016-03-20] MEDS: AQUAPHOR OINT 50 APPLIC/50 GM TUBE TOP SCH (20:29)
[2016-03-21] VITALS: BP 121/67; PULSE 75; RESP 20; TEMP 96.5; O2SAT 97
[2016-03-21] MEDS: ENOXAPARIN SODIUM 60 MG/0.6 ML SYRINGE SQ SCH ×2 (04:00→16:00)
[2016-03-21 08:00] VITALS: BP 174/84; PULSE 76; RESP 16; TEMP 97.4; O2SAT 98
[2016-03-21] MEDS: NYSTATIN 100,000 U/GM PWD 15 GM BTL TOPICAL SCH ×2 (09:00→21:00)
[2016-03-21] MEDS: DOCUSATE SODIUM 50 MG/SENNA 8.6 MG TAB PO SCH ×2 (11:43→21:13)
[2016-03-21] MEDS: CALCIUM/VITAMIN D 250 MG/125 U TAB PO SCH ×2 (11:43→21:13)
[2016-03-21] MEDS: MULTIVITAMINS/IRON/MINERALS CHEWABLE TAB CHEW SCH (11:43)
[2016-03-21] MEDS: METOPROLOL TARTRATE 25 MG TAB PO SCH ×2 (11:43→21:13)
[2016-03-21] MEDS: FAMOTIDINE 20 MG TAB PO SCH ×2 (11:43→21:13)
[2016-03-21 12:00] VITALS: BP 143/89; PULSE 75; RESP 16; TEMP 97.6; O2SAT 96
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
[2016-03-21 16:00] VITALS: BP 141/69; PULSE 77; RESP 16; TEMP 98.5; O2SAT 97
[2016-03-21 20:00] VITALS: BP 129/84; PULSE 83; RESP 18; TEMP 97.8; O2SAT 98
[2016-03-21] MEDS: AQUAPHOR OINT 50 APPLIC/50 GM TUBE TOP SCH (21:00)
[2016-03-22] VITALS: BP 127/76; PULSE 92; RESP 18; TEMP 97.5; O2SAT 97
[2016-03-22] MEDS: ENOXAPARIN SODIUM 60 MG/0.6 ML SYRINGE SQ SCH ×3 (04:00→18:34)
[2016-03-22 08:00] VITALS: BP 137/74; PULSE 81; RESP 16; TEMP 96.9; O2SAT 99
[2016-03-22] MEDS: NYSTATIN 100,000 U/GM PWD 15 GM BTL TOPICAL SCH ×2 (09:00→21:00)
[2016-03-22] MEDS: MULTIVITAMINS/IRON/MINERALS CHEWABLE TAB CHEW SCH (11:28)
[2016-03-22] MEDS: METOPROLOL TARTRATE 25 MG TAB PO SCH ×2 (11:28→20:52)
[2016-03-22] MEDS: DOCUSATE SODIUM 50 MG/SENNA 8.6 MG TAB PO SCH ×2 (11:28→20:52)
[2016-03-22] MEDS: CALCIUM/VITAMIN D 250 MG/125 U TAB PO SCH ×2 (11:29→20:51)
[2016-03-22] MEDS: FAMOTIDINE 20 MG TAB PO SCH ×2 (11:29→20:52)
[2016-03-22 12:00] VITALS: BP 133/92; PULSE 80; RESP 16; TEMP 96.4; O2SAT 98
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
[2016-03-22 20:00] VITALS: BP 123/68; PULSE 69; RESP 18; TEMP 98; O2SAT 99
[2016-03-22] MEDS: AQUAPHOR OINT 50 APPLIC/50 GM TUBE TOP SCH (21:00)
[2016-03-23] VITALS: BP 134/69; PULSE 62; RESP 18; TEMP 96.8; O2SAT 99
[2016-03-23] MEDS: ENOXAPARIN SODIUM 60 MG/0.6 ML SYRINGE SQ SCH ×2 (04:25→15:48)
[2016-03-23 08:00] VITALS: BP 130/71; PULSE 78; RESP 16; TEMP 96.6; O2SAT 97
[2016-03-23] MEDS: METOPROLOL TARTRATE 25 MG TAB PO SCH ×2 (09:43→20:33)
[2016-03-23] MEDS: FAMOTIDINE 20 MG TAB PO SCH ×2 (09:44→20:33)
[2016-03-23] MEDS: DOCUSATE SODIUM 50 MG/SENNA 8.6 MG TAB PO SCH ×2 (09:44→20:33)
[2016-03-23] MEDS: CALCIUM/VITAMIN D 250 MG/125 U TAB PO SCH ×2 (09:44→20:33)
[2016-03-23] MEDS: MULTIVITAMINS/IRON/MINERALS CHEWABLE TAB CHEW SCH (09:44)
[2016-03-23 12:00] VITALS: BP 127/82; PULSE 72; RESP 17; TEMP 97.6; O2SAT 96
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
[2016-03-23] MEDS: NYSTATIN 100,000 U/GM PWD 15 GM BTL TOPICAL SCH ×2 (15:49→20:34)
[2016-03-23 16:00] VITALS: BP 121/77; PULSE 109; RESP 17; TEMP 97.6; O2SAT 96
[2016-03-23 20:00] VITALS: BP 135/89; PULSE 112; RESP 18; TEMP 96.1; O2SAT 96
[2016-03-23] MEDS: AQUAPHOR OINT 50 APPLIC/50 GM TUBE TOP SCH (20:33)
[2016-03-24] VITALS: BP 135/84; PULSE 95; RESP 18; TEMP 96.9; O2SAT 96
[2016-03-24] MEDS: ENOXAPARIN SODIUM 60 MG/0.6 ML SYRINGE SQ SCH ×2 (05:01→16:12)
[2016-03-24 08:00] VITALS: BP 137/95; PULSE 100; RESP 20; TEMP 97.7; O2SAT 95
[2016-03-24] MEDS: METOPROLOL TARTRATE 25 MG TAB PO SCH ×2 (09:18→19:49)
[2016-03-24] MEDS: FAMOTIDINE 20 MG TAB PO SCH ×2 (09:18→19:49)
[2016-03-24] MEDS: DOCUSATE SODIUM 50 MG/SENNA 8.6 MG TAB PO SCH ×2 (09:18→19:49)
[2016-03-24] MEDS: MULTIVITAMINS/IRON/MINERALS CHEWABLE TAB CHEW SCH (09:18)
[2016-03-24] MEDS: NYSTATIN 100,000 U/GM PWD 15 GM BTL TOPICAL SCH ×2 (09:18→19:49)
[2016-03-24] MEDS: CALCIUM/VITAMIN D 250 MG/125 U TAB PO SCH ×2 (09:18→19:49)
[2016-03-24 11:28] VITALS: BP 139/72; PULSE 78; RESP 20; TEMP 98.6; O2SAT 97
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
[2016-03-24 16:00] VITALS: BP 124/77; PULSE 84; RESP 20; TEMP 98; O2SAT 96
[2016-03-24] MEDS: AQUAPHOR OINT 50 APPLIC/50 GM TUBE TOP SCH (19:49)
[2016-03-24 20:00] VITALS: BP 137/77; PULSE 94; RESP 19; TEMP 96.6; O2SAT 98
[2016-03-25] VITALS: BP 142/83; PULSE 81; RESP 20; TEMP 96; O2SAT 96
[2016-03-25] MEDS: ENOXAPARIN SODIUM 60 MG/0.6 ML SYRINGE SQ SCH ×2 (04:33→16:00)
[2016-03-25] MEDS: DOCUSATE SODIUM 50 MG/SENNA 8.6 MG TAB PO SCH ×2 (07:48→20:00)
[2016-03-25] MEDS: NYSTATIN 100,000 U/GM PWD 15 GM BTL TOPICAL SCH ×2 (07:48→20:00)
[2016-03-25] MEDS: CALCIUM/VITAMIN D 250 MG/125 U TAB PO SCH ×2 (07:48→20:00)
[2016-03-25] MEDS: MULTIVITAMINS/IRON/MINERALS CHEWABLE TAB CHEW SCH (07:48)
[2016-03-25] MEDS: METOPROLOL TARTRATE 25 MG TAB PO SCH ×2 (07:48→19:59)
[2016-03-25] MEDS: FAMOTIDINE 20 MG TAB PO SCH ×2 (07:48→20:00)
[2016-03-25 07:55] VITALS: BP 144/93; PULSE 81; RESP 20; TEMP 97.8; O2SAT 99
[2016-03-25 11:42] VITALS: BP 140/80; PULSE 84; RESP 19; TEMP 99; O2SAT 97
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
[2016-03-25 16:00] VITALS: BP 118/81; PULSE 98; RESP 20; TEMP 97.9; O2SAT 98
[2016-03-25 20:00] VITALS: BP 134/81; PULSE 108; RESP 19; TEMP 98.7; O2SAT 95
[2016-03-25] MEDS: AQUAPHOR OINT 50 APPLIC/50 GM TUBE TOP SCH (20:00)
[2016-03-26] MEDS: ENOXAPARIN SODIUM 60 MG/0.6 ML SYRINGE SQ SCH ×2 (02:40→14:28)
[2016-03-26 08:00] VITALS: BP 140/85; PULSE 94; RESP 17; TEMP 96.2; O2SAT 98
[2016-03-26] MEDS: FAMOTIDINE 20 MG TAB PO SCH ×2 (09:34→20:18)
[2016-03-26] MEDS: DOCUSATE SODIUM 50 MG/SENNA 8.6 MG TAB PO SCH ×2 (09:34→20:18)
[2016-03-26] MEDS: ERGOCALCIFEROL (VIT D2) 50,000 UNIT CAP PO SCH (09:34)
[2016-03-26] MEDS: MULTIVITAMINS/IRON/MINERALS CHEWABLE TAB CHEW SCH (09:34)
[2016-03-26] MEDS: CALCIUM/VITAMIN D 250 MG/125 U TAB PO SCH ×2 (09:34→20:18)
[2016-03-26] MEDS: METOPROLOL TARTRATE 25 MG TAB PO SCH ×2 (09:34→20:18)
[2016-03-26] MEDS: NYSTATIN 100,000 U/GM PWD 15 GM BTL TOPICAL SCH ×2 (09:35→20:19)
[2016-03-26 12:00] VITALS: BP 135/85; PULSE 83; RESP 18; TEMP 96.6; O2SAT 99
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
[2016-03-26 16:00] VITALS: BP 137/79; PULSE 92; RESP 18; TEMP 97.3; O2SAT 96
[2016-03-26 20:00] VITALS: BP 137/88; PULSE 107; RESP 20; TEMP 97.6; O2SAT 98
[2016-03-26] MEDS: AQUAPHOR OINT 50 APPLIC/50 GM TUBE TOP SCH (20:18)
[2016-03-27] MEDS: ENOXAPARIN SODIUM 60 MG/0.6 ML SYRINGE SQ SCH ×2 (03:17→15:57)
[2016-03-27 08:00] VITALS: BP 142/85; PULSE 96; RESP 16; TEMP 96.8; O2SAT 97
[2016-03-27] MEDS: NYSTATIN 100,000 U/GM PWD 15 GM BTL TOPICAL SCH ×2 (09:00→20:40)
[2016-03-27] MEDS: MULTIVITAMINS/IRON/MINERALS CHEWABLE TAB CHEW SCH (10:04)
[2016-03-27] MEDS: METOPROLOL TARTRATE 25 MG TAB PO SCH ×2 (10:05→20:39)
[2016-03-27] MEDS: FAMOTIDINE 20 MG TAB PO SCH ×2 (10:05→20:39)
[2016-03-27] MEDS: DOCUSATE SODIUM 50 MG/SENNA 8.6 MG TAB PO SCH ×2 (10:05→20:39)
[2016-03-27] MEDS: CALCIUM/VITAMIN D 250 MG/125 U TAB PO SCH ×2 (10:05→20:39)
[2016-03-27 12:00] VITALS: BP 153/81; PULSE 76; RESP 17; TEMP 96.2; O2SAT 96
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
[2016-03-27 16:00] VITALS: BP 136/86; PULSE 76; RESP 16; TEMP 96.7; O2SAT 98
[2016-03-27 20:00] VITALS: BP 126/76; PULSE 89; RESP 20; TEMP 97.4; O2SAT 98
[2016-03-27] MEDS: AQUAPHOR OINT 50 APPLIC/50 GM TUBE TOP SCH (20:41)
[2016-03-28] MEDS: ENOXAPARIN SODIUM 60 MG/0.6 ML SYRINGE SQ SCH ×2 (05:17→16:46)
[2016-03-28 08:00] VITALS: BP 137/77; PULSE 73; RESP 16; TEMP 95.5; O2SAT 97
[2016-03-28] MEDS: NYSTATIN 100,000 U/GM PWD 15 GM BTL TOPICAL SCH ×2 (09:00→20:52)
[2016-03-28] MEDS: CALCIUM/VITAMIN D 250 MG/125 U TAB PO SCH ×2 (09:52→20:50)
[2016-03-28] MEDS: MULTIVITAMINS/IRON/MINERALS CHEWABLE TAB CHEW SCH (09:52)
[2016-03-28] MEDS: METOPROLOL TARTRATE 25 MG TAB PO SCH ×2 (09:52→20:51)
[2016-03-28] MEDS: DOCUSATE SODIUM 50 MG/SENNA 8.6 MG TAB PO SCH ×2 (09:52→20:51)
[2016-03-28] MEDS: FAMOTIDINE 20 MG TAB PO SCH ×2 (09:55→20:51)
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
[2016-03-28] MEDS: CARISOPRODOL 350 MG TAB PO PRN (11:55)
[2016-03-28 12:00] VITALS: BP 133/86; PULSE 107; RESP 16; TEMP 96.5; O2SAT 96
[2016-03-28 16:00] VITALS: BP 127/80; PULSE 98; RESP 16; TEMP 98.2; O2SAT 97
[2016-03-28 20:23] VITALS: BP 134/79; PULSE 88; RESP 20; TEMP 98.6; O2SAT 96
[2016-03-28] MEDS: AQUAPHOR OINT 50 APPLIC/50 GM TUBE TOP SCH (20:52)
[2016-03-28 23:49] VITALS: BP 142/76; PULSE 90; RESP 20; TEMP 98.8; O2SAT 98
[2016-03-29] MEDS: ENOXAPARIN SODIUM 60 MG/0.6 ML SYRINGE SQ SCH ×2 (04:54→16:13)
[2016-03-29 08:00] VITALS: BP 136/76; PULSE 77; RESP 16; TEMP 96.3; O2SAT 95
[2016-03-29] MEDS: NYSTATIN 100,000 U/GM PWD 15 GM BTL TOPICAL SCH ×2 (09:00→19:59)
[2016-03-29] MEDS: MULTIVITAMINS/IRON/MINERALS CHEWABLE TAB CHEW SCH (09:12)
[2016-03-29] MEDS: CALCIUM/VITAMIN D 250 MG/125 U TAB PO SCH ×2 (09:13→19:58)
[2016-03-29] MEDS: DOCUSATE SODIUM 50 MG/SENNA 8.6 MG TAB PO SCH ×2 (09:13→19:58)
[2016-03-29] MEDS: FAMOTIDINE 20 MG TAB PO SCH ×2 (09:13→19:58)
[2016-03-29] MEDS: METOPROLOL TARTRATE 25 MG TAB PO SCH ×2 (09:13→19:58)
[2016-03-29 12:00] VITALS: BP 121/70; PULSE 85; RESP 16; TEMP 95.9; O2SAT 97
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
[2016-03-29 16:00] VITALS: BP 122/76; PULSE 91; RESP 16; TEMP 96.4; O2SAT 97
[2016-03-29] MEDS: CARISOPRODOL 350 MG TAB PO PRN (16:12)
[2016-03-29] MEDS: AQUAPHOR OINT 50 APPLIC/50 GM TUBE TOP SCH (19:59)
[2016-03-29 20:00] VITALS: BP 121/70; PULSE 92; RESP 17; TEMP 96.4; O2SAT 100
[2016-03-30] VITALS: BP 130/82; PULSE 90; RESP 17; TEMP 98.2; O2SAT 100
[2016-03-30] MEDS: ENOXAPARIN SODIUM 60 MG/0.6 ML SYRINGE SQ SCH ×2 (05:34→18:33)
[2016-03-30 08:00] VITALS: BP 134/72; PULSE 72; RESP 12; TEMP 97.9; O2SAT 99
[2016-03-30] MEDS: NYSTATIN 100,000 U/GM PWD 15 GM BTL TOPICAL SCH ×2 (09:00→19:43)
[2016-03-30] MEDS: CALCIUM/VITAMIN D 250 MG/125 U TAB PO SCH ×2 (10:11→19:42)
[2016-03-30] MEDS: DOCUSATE SODIUM 50 MG/SENNA 8.6 MG TAB PO SCH ×2 (10:11→19:43)
[2016-03-30] MEDS: FAMOTIDINE 20 MG TAB PO SCH ×2 (10:11→19:43)
[2016-03-30] MEDS: MULTIVITAMINS/IRON/MINERALS CHEWABLE TAB CHEW SCH (10:11)
[2016-03-30] MEDS: METOPROLOL TARTRATE 25 MG TAB PO SCH ×2 (10:11→19:42)
[2016-03-30 12:00] VITALS: BP 126/87; PULSE 101; RESP 12; TEMP 97.3; O2SAT 97
[2016-03-30] MEDS: CARISOPRODOL 350 MG TAB PO PRN ×2 (13:05→22:31)
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
[2016-03-30 16:00] VITALS: BP 128/75; PULSE 90; RESP 14; TEMP 97; O2SAT 100
[2016-03-30] MEDS: LACTIC ACID (AMMONIUM LACTATE) 12% LOTION 225 GM BTL TOPICAL SCH (19:42)
[2016-03-30] MEDS: AQUAPHOR OINT 50 APPLIC/50 GM TUBE TOP SCH (19:43)
[2016-03-30 20:00] VITALS: BP 116/71; PULSE 96; RESP 17; TEMP 97; O2SAT 98
[2016-03-31] VITALS: BP 139/69; PULSE 95; RESP 17; TEMP 97.2; O2SAT 98
[2016-03-31] MEDS: ENOXAPARIN SODIUM 60 MG/0.6 ML SYRINGE SQ SCH ×2 (04:23→17:14)
[2016-03-31 08:00] VITALS: BP 133/88; PULSE 78; RESP 12; TEMP 98.5; O2SAT 98
[2016-03-31] MEDS: NYSTATIN 100,000 U/GM PWD 15 GM BTL TOPICAL SCH ×2 (09:00→21:00)
[2016-03-31] MEDS: LACTIC ACID (AMMONIUM LACTATE) 12% LOTION 225 GM BTL TOPICAL SCH ×2 (09:00→21:00)
[2016-03-31] MEDS: FAMOTIDINE 20 MG TAB PO SCH ×2 (09:51→19:48)
[2016-03-31] MEDS: METOPROLOL TARTRATE 25 MG TAB PO SCH ×2 (09:51→19:48)
[2016-03-31] MEDS: CALCIUM/VITAMIN D 250 MG/125 U TAB PO SCH ×2 (09:51→19:48)
[2016-03-31] MEDS: DOCUSATE SODIUM 50 MG/SENNA 8.6 MG TAB PO SCH ×2 (09:51→19:48)
[2016-03-31] MEDS: MULTIVITAMINS/IRON/MINERALS CHEWABLE TAB CHEW SCH (09:51)
[2016-03-31 12:00] VITALS: BP 130/82; PULSE 78; RESP 14; TEMP 97.6; O2SAT 97
[2016-03-31] MEDS: CARISOPRODOL 350 MG TAB PO PRN ×2 (12:53→21:13)
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
[2016-03-31 16:00] VITALS: BP 126/74; PULSE 76; RESP 12; TEMP 97.4; O2SAT 98
[2016-03-31 20:00] VITALS: BP 121/77; PULSE 95; RESP 20; TEMP 97.8; O2SAT 99
[2016-03-31] MEDS: AQUAPHOR OINT 50 APPLIC/50 GM TUBE TOP SCH (21:00)
[2016-04-01] VITALS: BP 158/81; PULSE 91; RESP 20; TEMP 98.4; O2SAT 99
[2016-04-01] MEDS: ENOXAPARIN SODIUM 60 MG/0.6 ML SYRINGE SQ SCH ×2 (04:14→17:55)
[2016-04-01 08:00] VITALS: BP 147/89; PULSE 75; RESP 20; TEMP 96; O2SAT 95
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
[2016-04-01 12:00] VITALS: BP 120/86; PULSE 100; RESP 20; TEMP 97; O2SAT 97
[2016-04-01] MEDS: CARISOPRODOL 350 MG TAB PO PRN ×2 (12:41→21:28)
[2016-04-01] MEDS: MULTIVITAMINS/IRON/MINERALS CHEWABLE TAB CHEW SCH (12:41)
[2016-04-01] MEDS: METOPROLOL TARTRATE 25 MG TAB PO SCH ×2 (12:41→19:43)
[2016-04-01] MEDS: DOCUSATE SODIUM 50 MG/SENNA 8.6 MG TAB PO SCH ×2 (12:42→19:43)
[2016-04-01] MEDS: CALCIUM/VITAMIN D 250 MG/125 U TAB PO SCH ×2 (12:42→19:43)
[2016-04-01] MEDS: FAMOTIDINE 20 MG TAB PO SCH ×2 (12:42→19:43)
[2016-04-01] MEDS: NYSTATIN 100,000 U/GM PWD 15 GM BTL TOPICAL SCH ×2 (12:45→19:44)
[2016-04-01] MEDS: LACTIC ACID (AMMONIUM LACTATE) 12% LOTION 225 GM BTL TOPICAL SCH ×2 (12:45→19:44)
[2016-04-01 16:00] VITALS: BP 140/86; PULSE 86; RESP 18; TEMP 97; O2SAT 96
[2016-04-01] MEDS: AQUAPHOR OINT 50 APPLIC/50 GM TUBE TOP SCH (19:44)
[2016-04-01 20:00] VITALS: BP 134/68; PULSE 90; RESP 20; TEMP 97.9; O2SAT 100
[2016-04-02] VITALS: BP 130/76; PULSE 79; RESP 20; TEMP 97.7; O2SAT 98
[2016-04-02] MEDS: ENOXAPARIN SODIUM 60 MG/0.6 ML SYRINGE SQ SCH ×2 (03:35→17:08)
[2016-04-02 08:00] VITALS: BP 132/78; PULSE 82; RESP 19; TEMP 97.9; O2SAT 98
[2016-04-02] MEDS: CARISOPRODOL 350 MG TAB PO PRN ×2 (08:39→17:08)
[2016-04-02] MEDS: FAMOTIDINE 20 MG TAB PO SCH ×2 (08:40→20:19)
[2016-04-02] MEDS: MULTIVITAMINS/IRON/MINERALS CHEWABLE TAB CHEW SCH (08:40)
[2016-04-02] MEDS: DOCUSATE SODIUM 50 MG/SENNA 8.6 MG TAB PO SCH ×2 (08:40→20:19)
[2016-04-02] MEDS: METOPROLOL TARTRATE 25 MG TAB PO SCH ×2 (08:40→20:19)
[2016-04-02] MEDS: ERGOCALCIFEROL (VIT D2) 50,000 UNIT CAP PO SCH (08:41)
[2016-04-02] MEDS: CALCIUM/VITAMIN D 250 MG/125 U TAB PO SCH ×2 (08:41→20:18)
[2016-04-02] MEDS: NYSTATIN 100,000 U/GM PWD 15 GM BTL TOPICAL SCH ×2 (08:42→20:21)
[2016-04-02] MEDS: LACTIC ACID (AMMONIUM LACTATE) 12% LOTION 225 GM BTL TOPICAL SCH ×2 (08:42→20:18)
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
[2016-04-02 20:00] VITALS: BP 133/84; PULSE 120; RESP 21; TEMP 98.4; O2SAT 98
[2016-04-02] MEDS: AQUAPHOR OINT 50 APPLIC/50 GM TUBE TOP SCH (20:20)
[2016-04-02 23:45] VITALS: BP 110/81; PULSE 95; RESP 20; TEMP 98.2; O2SAT 98
[2016-04-03] MEDS: CARISOPRODOL 350 MG TAB PO PRN ×4 (01:25→23:48)
[2016-04-03] MEDS: ENOXAPARIN SODIUM 60 MG/0.6 ML SYRINGE SQ SCH ×2 (05:38→15:19)
[2016-04-03 08:00] VITALS: BP 124/85; PULSE 78; RESP 20; TEMP 98.4; O2SAT 99
[2016-04-03] MEDS: METOPROLOL TARTRATE 25 MG TAB PO SCH ×2 (09:34→21:45)
[2016-04-03] MEDS: DOCUSATE SODIUM 50 MG/SENNA 8.6 MG TAB PO SCH ×2 (09:34→21:44)
[2016-04-03] MEDS: FAMOTIDINE 20 MG TAB PO SCH ×2 (09:34→21:44)
[2016-04-03] MEDS: MULTIVITAMINS/IRON/MINERALS CHEWABLE TAB CHEW SCH (09:34)
[2016-04-03] MEDS: CALCIUM/VITAMIN D 250 MG/125 U TAB PO SCH ×2 (09:35→21:44)
[2016-04-03] MEDS: LACTIC ACID (AMMONIUM LACTATE) 12% LOTION 225 GM BTL TOPICAL SCH ×2 (09:37→21:45)
[2016-04-03] MEDS: NYSTATIN 100,000 U/GM PWD 15 GM BTL TOPICAL SCH ×2 (09:37→21:45)
[2016-04-03 12:00] VITALS: BP 124/85; PULSE 75; RESP 20; TEMP 98.4; O2SAT 99
[2016-04-03 16:00] VITALS: BP 130/80; PULSE 78; RESP 20; TEMP 98.8; O2SAT 99
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
[2016-04-03 20:00] VITALS: BP 144/66; PULSE 51; RESP 21; TEMP 97.3; O2SAT 97
[2016-04-03] MEDS: AQUAPHOR OINT 50 APPLIC/50 GM TUBE TOP SCH (21:46)
[2016-04-04] VITALS: BP 145/80; PULSE 91; RESP 20; TEMP 96.5; O2SAT 95
[2016-04-04] MEDS: ENOXAPARIN SODIUM 60 MG/0.6 ML SYRINGE SQ SCH ×2 (04:24→16:18)
[2016-04-04 08:00] VITALS: BP 136/80; PULSE 80; RESP 20; TEMP 98.2; O2SAT 99
[2016-04-04] MEDS: FAMOTIDINE 20 MG TAB PO SCH ×2 (12:04→21:44)
[2016-04-04] MEDS: DOCUSATE SODIUM 50 MG/SENNA 8.6 MG TAB PO SCH ×2 (12:04→21:45)
[2016-04-04] MEDS: MULTIVITAMINS/IRON/MINERALS CHEWABLE TAB CHEW SCH (12:05)
[2016-04-04] MEDS: CALCIUM/VITAMIN D 250 MG/125 U TAB PO SCH ×2 (12:05→21:45)
[2016-04-04] MEDS: METOPROLOL TARTRATE 25 MG TAB PO SCH ×2 (12:05→21:44)
[2016-04-04] MEDS: LACTIC ACID (AMMONIUM LACTATE) 12% LOTION 225 GM BTL TOPICAL SCH ×2 (12:07→21:00)
[2016-04-04] MEDS: NYSTATIN 100,000 U/GM PWD 15 GM BTL TOPICAL SCH ×2 (12:07→21:00)
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
[2016-04-04 20:00] VITALS: BP 136/85; PULSE 106; RESP 19; TEMP 97.9; O2SAT 100
[2016-04-04] MEDS: AQUAPHOR OINT 50 APPLIC/50 GM TUBE TOP SCH (21:00)
[2016-04-04] MEDS: CARISOPRODOL 350 MG TAB PO PRN (21:44)
[2016-04-05] VITALS: BP 121/74; PULSE 81; RESP 17; TEMP 96.8; O2SAT 98
[2016-04-05] MEDS: ENOXAPARIN SODIUM 60 MG/0.6 ML SYRINGE SQ SCH ×2 (04:30→15:45)
[2016-04-05 08:00] VITALS: BP 124/68; PULSE 83; RESP 19; TEMP 96.9; O2SAT 99
[2016-04-05] MEDS: FAMOTIDINE 20 MG TAB PO SCH ×2 (08:57→20:16)
[2016-04-05] MEDS: MULTIVITAMINS/IRON/MINERALS CHEWABLE TAB CHEW SCH (08:57)
[2016-04-05] MEDS: LACTIC ACID (AMMONIUM LACTATE) 12% LOTION 225 GM BTL TOPICAL SCH ×2 (08:57→20:17)
[2016-04-05] MEDS: CALCIUM/VITAMIN D 250 MG/125 U TAB PO SCH ×2 (08:57→20:16)
[2016-04-05] MEDS: DOCUSATE SODIUM 50 MG/SENNA 8.6 MG TAB PO SCH ×2 (08:57→20:16)
[2016-04-05] MEDS: NYSTATIN 100,000 U/GM PWD 15 GM BTL TOPICAL SCH ×2 (08:57→20:17)
[2016-04-05] MEDS: METOPROLOL TARTRATE 25 MG TAB PO SCH ×2 (08:57→20:16)
[2016-04-05] MEDS: CARISOPRODOL 350 MG TAB PO PRN ×2 (09:44→22:41)
[2016-04-05 20:00] VITALS: BP 128/70; PULSE 97; RESP 18; TEMP 97.3; O2SAT 100
[2016-04-05] MEDS: AQUAPHOR OINT 50 APPLIC/50 GM TUBE TOP SCH (20:17)
[2016-04-06] VITALS: BP 124/81; PULSE 92; RESP 17; TEMP 96.8; O2SAT 98
[2016-04-06] MEDS: ENOXAPARIN SODIUM 60 MG/0.6 ML SYRINGE SQ SCH ×2 (05:21→16:00)
[2016-04-06 08:00] VITALS: BP 150/76; PULSE 106; RESP 20; TEMP 95.6; O2SAT 100
[2016-04-06] MEDS: FAMOTIDINE 20 MG TAB PO SCH ×2 (08:14→20:57)
[2016-04-06] MEDS: CALCIUM/VITAMIN D 250 MG/125 U TAB PO SCH ×2 (08:14→20:56)
[2016-04-06] MEDS: METOPROLOL TARTRATE 25 MG TAB PO SCH ×2 (08:14→20:56)
[2016-04-06] MEDS: MULTIVITAMINS/IRON/MINERALS CHEWABLE TAB CHEW SCH (08:14)
[2016-04-06] MEDS: DOCUSATE SODIUM 50 MG/SENNA 8.6 MG TAB PO SCH ×2 (08:14→20:57)
[2016-04-06] MEDS: LACTIC ACID (AMMONIUM LACTATE) 12% LOTION 225 GM BTL TOPICAL SCH ×2 (08:15→20:58)
[2016-04-06] MEDS: NYSTATIN 100,000 U/GM PWD 15 GM BTL TOPICAL SCH ×2 (08:15→20:58)
[2016-04-06 12:00] VITALS: BP 135/69; PULSE 74; RESP 20; TEMP 98.3; O2SAT 98
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
[2016-04-06 16:00] VITALS: BP 125/82; PULSE 84; RESP 20; TEMP 97.1; O2SAT 100
[2016-04-06] MEDS: CARISOPRODOL 350 MG TAB PO PRN (18:26)
[2016-04-06 20:00] VITALS: BP 133/70; PULSE 115; RESP 20; TEMP 96.5; O2SAT 98
[2016-04-06] MEDS: AQUAPHOR OINT 50 APPLIC/50 GM TUBE TOP SCH (20:58)
[2016-04-07] VITALS: BP 120/76; PULSE 79; RESP 20; TEMP 97.5; O2SAT 97
[2016-04-07] MEDS: ENOXAPARIN SODIUM 60 MG/0.6 ML SYRINGE SQ SCH ×2 (04:39→16:21)
[2016-04-07] MEDS: CARISOPRODOL 350 MG TAB PO PRN ×3 (04:40→22:20)
[2016-04-07 08:00] VITALS: BP 133/77; PULSE 101; RESP 16; TEMP 95.9; O2SAT 97
[2016-04-07] MEDS: METOPROLOL TARTRATE 25 MG TAB PO SCH ×2 (08:17→20:06)
[2016-04-07] MEDS: CALCIUM/VITAMIN D 250 MG/125 U TAB PO SCH ×2 (08:17→20:06)
[2016-04-07] MEDS: FAMOTIDINE 20 MG TAB PO SCH ×2 (08:17→20:05)
[2016-04-07] MEDS: MULTIVITAMINS/IRON/MINERALS CHEWABLE TAB CHEW SCH (08:17)
[2016-04-07] MEDS: DOCUSATE SODIUM 50 MG/SENNA 8.6 MG TAB PO SCH ×2 (08:17→20:06)
[2016-04-07] MEDS: NYSTATIN 100,000 U/GM PWD 15 GM BTL TOPICAL SCH ×2 (08:19→20:08)
[2016-04-07] MEDS: LACTIC ACID (AMMONIUM LACTATE) 12% LOTION 225 GM BTL TOPICAL SCH ×2 (08:19→20:08)
[2016-04-07 12:00] VITALS: BP 132/78; PULSE 87; RESP 16; TEMP 96.7; O2SAT 99
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
[2016-04-07 16:00] VITALS: BP 132/82; PULSE 117; RESP 15; TEMP 97.5; O2SAT 99
[2016-04-07 16:12] LABS: AUTOMATED NEUTROPHIL # 4.9 TH/MM3 (1.8-7.7); BASOPHIL % 0.3 % (0.0-2.0); EOSINOPHIL # 0.2 TH/MM3 (0-0.4); HEMATOCRIT 34.4 % (39.0-51.0); LYMPH % 20.1 % (9.0-44.0); LYMPHOCYTE # 1.4 TH/MM3 (1.0-4.8); MEAN CELL VOLUME 72.9 FL (80.0-100.0); MEAN CORPUSCULAR HEMOGLOBIN 24.2 PG (27.0-34.0); MEAN CORPUSCULAR HGB CONC 33.2 % (32.0-36.0); MONO % 5.9 % (0.0-8.0); NEUT % 70.7 % (16.0-70.0); PLATELET COUNT 241 TH/MM3 (150-450); RED BLOOD COUNT 4.71 MIL/MM3 (4.50-5.90); RED CELL DISTRIBUTION WIDTH 18.6 % (11.6-17.2)
[2016-04-07 16:15] LABS: HEMO FLAGS AUTO DIFF
[2016-04-07 16:46] LABS: ANION GAP 8 MEQ/L (5-15); AST (GOT) 18 U/L (15-37); BICARBONATE 28.3 MEQ/L (21.0-32.0); BLOOD UREA NITROGEN 10 MG/DL (7-18); CHLORIDE 101 MEQ/L (98-107); GLOMERULAR FILTRATION RATE 74 ML/MIN (>89); MAGNESIUM 2.5 MG/DL (1.5-2.5); POTASSIUM 3.6 MEQ/L (3.5-5.1); SODIUM (NA) 137 MEQ/L (136-145)
[2016-04-07 17:01] LABS: OVALOCYTES 1+ (NORMAL); PLATELET ESTIMATE SMEAR NORMAL (NORMAL); PLATELET MORPHOLOGY NORMAL (NORMAL); SCAN/DIFF AUTO DIFF CONFIRMED
[2016-04-07 17:11] LABS: ALKALINE PHOSPHATASE 77 U/L (45-117); ALT (GPT) 36 U/L (12-78); FREE T3 2.85 PG/ML (2.18-3.98); FREE T4 1.72 NG/DL (0.76-1.46); TOTAL BILIRUBIN ADULT 0.4 MG/DL (0.2-1.0)
[2016-04-07 20:00] VITALS: BP 128/77; PULSE 95; RESP 18; TEMP 97.5; O2SAT 97
[2016-04-07] MEDS: AQUAPHOR OINT 50 APPLIC/50 GM TUBE TOP SCH (20:08)
[2016-04-08] VITALS: BP 131/72; PULSE 85; RESP 18; TEMP 97.4; O2SAT 99
[2016-04-08] MEDS: ENOXAPARIN SODIUM 60 MG/0.6 ML SYRINGE SQ SCH ×2 (04:05→15:47)
[2016-04-08 08:00] VITALS: BP 138/71; PULSE 71; RESP 14; TEMP 95.2; O2SAT 97
[2016-04-08] MEDS: LACTIC ACID (AMMONIUM LACTATE) 12% LOTION 225 GM BTL TOPICAL SCH ×2 (09:00→20:07)
[2016-04-08] MEDS: NYSTATIN 100,000 U/GM PWD 15 GM BTL TOPICAL SCH ×2 (09:00→20:08)
[2016-04-08] MEDS: MULTIVITAMINS/IRON/MINERALS CHEWABLE TAB CHEW SCH (09:38)
[2016-04-08] MEDS: CARISOPRODOL 350 MG TAB PO PRN ×2 (09:39→17:25)
[2016-04-08] MEDS: METOPROLOL TARTRATE 25 MG TAB PO SCH ×2 (09:39→20:07)
[2016-04-08] MEDS: FAMOTIDINE 20 MG TAB PO SCH ×2 (09:39→20:07)
[2016-04-08] MEDS: DOCUSATE SODIUM 50 MG/SENNA 8.6 MG TAB PO SCH ×2 (09:39→20:07)
[2016-04-08] MEDS: CALCIUM/VITAMIN D 250 MG/125 U TAB PO SCH ×2 (09:41→20:07)
[2016-04-08 12:00] VITALS: BP 123/66; PULSE 86; RESP 15; TEMP 97.9; O2SAT 97
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
[2016-04-08 16:00] VITALS: BP 137/73; PULSE 83; RESP 15; TEMP 96.6; O2SAT 96
[2016-04-08 20:00] VITALS: BP 134/74; PULSE 115; RESP 17; TEMP 96.4; O2SAT 100
[2016-04-08] MEDS: AQUAPHOR OINT 50 APPLIC/50 GM TUBE TOP SCH (20:08)
[2016-04-09] VITALS: BP 132/75; PULSE 90; RESP 17; TEMP 96.1; O2SAT 100
[2016-04-09] MEDS: ENOXAPARIN SODIUM 60 MG/0.6 ML SYRINGE SQ SCH ×2 (04:09→15:32)
[2016-04-09 07:41] VITALS: BP 137/78; PULSE 79; RESP 17; TEMP 96; O2SAT 98
[2016-04-09] MEDS: LACTIC ACID (AMMONIUM LACTATE) 12% LOTION 225 GM BTL TOPICAL SCH ×2 (09:00→21:00)
[2016-04-09] MEDS: NYSTATIN 100,000 U/GM PWD 15 GM BTL TOPICAL SCH ×2 (09:00→21:00)
[2016-04-09] MEDS: MULTIVITAMINS/IRON/MINERALS CHEWABLE TAB CHEW SCH (09:20)
[2016-04-09] MEDS: FAMOTIDINE 20 MG TAB PO SCH ×2 (09:20→21:46)
[2016-04-09] MEDS: ERGOCALCIFEROL (VIT D2) 50,000 UNIT CAP PO SCH (09:20)
[2016-04-09] MEDS: CALCIUM/VITAMIN D 250 MG/125 U TAB PO SCH ×2 (09:21→21:45)
[2016-04-09] MEDS: DOCUSATE SODIUM 50 MG/SENNA 8.6 MG TAB PO SCH ×2 (09:21→21:46)
[2016-04-09] MEDS: METOPROLOL TARTRATE 25 MG TAB PO SCH ×2 (09:21→21:46)
[2016-04-09 12:00] VITALS: BP 141/81; PULSE 80; RESP 19; TEMP 98.1; O2SAT 99
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
[2016-04-09] MEDS: CARISOPRODOL 350 MG TAB PO PRN (15:29)
[2016-04-09 16:00] VITALS: BP 154/78; PULSE 85; RESP 20; TEMP 96.9; O2SAT 97
[2016-04-09 20:00] VITALS: BP 143/79; PULSE 97; RESP 18; TEMP 99.3; O2SAT 98
[2016-04-09] MEDS: AQUAPHOR OINT 50 APPLIC/50 GM TUBE TOP SCH (21:00)
[2016-04-10] VITALS: BP 146/78; PULSE 98; RESP 20; TEMP 99.8; O2SAT 97
[2016-04-10] MEDS: CARISOPRODOL 350 MG TAB PO PRN ×3 (01:59→23:43)
[2016-04-10] MEDS: ENOXAPARIN SODIUM 60 MG/0.6 ML SYRINGE SQ SCH ×2 (04:31→15:43)
[2016-04-10 08:00] VITALS: BP 137/85; PULSE 84; RESP 20; TEMP 98.2; O2SAT 99
[2016-04-10] MEDS: FAMOTIDINE 20 MG TAB PO SCH ×2 (08:16→20:32)
[2016-04-10] MEDS: METOPROLOL TARTRATE 25 MG TAB PO SCH ×2 (08:16→20:32)
[2016-04-10] MEDS: CALCIUM/VITAMIN D 250 MG/125 U TAB PO SCH ×2 (08:16→20:32)
[2016-04-10] MEDS: MULTIVITAMINS/IRON/MINERALS CHEWABLE TAB CHEW SCH (08:16)
[2016-04-10] MEDS: NYSTATIN 100,000 U/GM PWD 15 GM BTL TOPICAL SCH ×2 (08:17→20:36)
[2016-04-10] MEDS: DOCUSATE SODIUM 50 MG/SENNA 8.6 MG TAB PO SCH ×2 (08:17→20:36)
[2016-04-10] MEDS: LACTIC ACID (AMMONIUM LACTATE) 12% LOTION 225 GM BTL TOPICAL SCH ×2 (08:17→20:37)
[2016-04-10 12:00] VITALS: BP 152/90; PULSE 85; RESP 19; TEMP 98.8; O2SAT 95
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
[2016-04-10 17:48] VITALS: BP 136/84; PULSE 109; RESP 19; TEMP 98.5; O2SAT 99
[2016-04-10 20:23] VITALS: BP 135/75; PULSE 81; RESP 20; TEMP 99; O2SAT 99
[2016-04-10] MEDS: AQUAPHOR OINT 50 APPLIC/50 GM TUBE TOP SCH (20:36)
[2016-04-11 00:25] VITALS: BP 132/80; PULSE 79; RESP 20; TEMP 98; O2SAT 98
[2016-04-11] MEDS: ENOXAPARIN SODIUM 60 MG/0.6 ML SYRINGE SQ SCH ×2 (05:23→16:48)
[2016-04-11 08:00] VITALS: BP 118/72; PULSE 101; RESP 19; TEMP 97.2; O2SAT 97
[2016-04-11] MEDS: NYSTATIN 100,000 U/GM PWD 15 GM BTL TOPICAL SCH ×2 (09:00→20:42)
[2016-04-11] MEDS: LACTIC ACID (AMMONIUM LACTATE) 12% LOTION 225 GM BTL TOPICAL SCH ×2 (09:00→20:42)
[2016-04-11] MEDS: DOCUSATE SODIUM 50 MG/SENNA 8.6 MG TAB PO SCH ×2 (09:56→20:42)
[2016-04-11] MEDS: CALCIUM/VITAMIN D 250 MG/125 U TAB PO SCH ×2 (09:56→20:41)
[2016-04-11] MEDS: CARISOPRODOL 350 MG TAB PO PRN ×2 (09:56→17:52)
[2016-04-11] MEDS: METOPROLOL TARTRATE 25 MG TAB PO SCH ×2 (09:56→20:41)
[2016-04-11] MEDS: FAMOTIDINE 20 MG TAB PO SCH ×2 (09:56→20:41)
[2016-04-11] MEDS: MULTIVITAMINS/IRON/MINERALS CHEWABLE TAB CHEW SCH (09:56)
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
[2016-04-11 12:00] VITALS: BP 113/67; PULSE 76; RESP 18; TEMP 96.1; O2SAT 95
[2016-04-11 16:00] VITALS: BP 124/70; PULSE 88; RESP 19; TEMP 96.4; O2SAT 99
[2016-04-11 20:00] VITALS: BP 129/81; PULSE 100; RESP 20; TEMP 98.5; O2SAT 97
[2016-04-11] MEDS: AQUAPHOR OINT 50 APPLIC/50 GM TUBE TOP SCH (20:42)
[2016-04-12 00:25] VITALS: BP 132/82; PULSE 86; RESP 18; TEMP 98; O2SAT 98
[2016-04-12] MEDS: CARISOPRODOL 350 MG TAB PO PRN ×3 (05:02→23:02)
[2016-04-12] MEDS: ENOXAPARIN SODIUM 60 MG/0.6 ML SYRINGE SQ SCH ×2 (05:02→14:24)
[2016-04-12 08:00] VITALS: BP 117/77; PULSE 101; RESP 18; TEMP 96.8; O2SAT 98
[2016-04-12] MEDS: NYSTATIN 100,000 U/GM PWD 15 GM BTL TOPICAL SCH ×2 (09:00→20:53)
[2016-04-12] MEDS: DOCUSATE SODIUM 50 MG/SENNA 8.6 MG TAB PO SCH ×2 (09:00→20:53)
[2016-04-12] MEDS: LACTIC ACID (AMMONIUM LACTATE) 12% LOTION 225 GM BTL TOPICAL SCH ×2 (09:00→20:53)
[2016-04-12] MEDS: MULTIVITAMINS/IRON/MINERALS CHEWABLE TAB CHEW SCH (09:11)
[2016-04-12] MEDS: METOPROLOL TARTRATE 25 MG TAB PO SCH ×2 (09:12→20:52)
[2016-04-12] MEDS: FAMOTIDINE 20 MG TAB PO SCH ×2 (09:12→20:52)
[2016-04-12] MEDS: CALCIUM/VITAMIN D 250 MG/125 U TAB PO SCH ×2 (09:12→20:53)
[2016-04-12 12:00] VITALS: BP 128/85; PULSE 82; RESP 18; TEMP 95; O2SAT 98
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
[2016-04-12 16:00] VITALS: BP 141/82; PULSE 85; RESP 18; TEMP 97.1; O2SAT 100
[2016-04-12 20:00] VITALS: BP 118/68; PULSE 108; RESP 20; TEMP 98.9; O2SAT 96
[2016-04-12] MEDS: AQUAPHOR OINT 50 APPLIC/50 GM TUBE TOP SCH (20:53)
[2016-04-13] VITALS: BP 119/75; PULSE 89; RESP 20; TEMP 98; O2SAT 100
[2016-04-13] MEDS: ENOXAPARIN SODIUM 60 MG/0.6 ML SYRINGE SQ SCH ×2 (03:59→16:00)
[2016-04-13 08:00] VITALS: BP 120/72; PULSE 69; RESP 14; TEMP 98.1; O2SAT 100
[2016-04-13] MEDS: METOPROLOL TARTRATE 25 MG TAB PO SCH ×2 (08:38→20:49)
[2016-04-13] MEDS: MULTIVITAMINS/IRON/MINERALS CHEWABLE TAB CHEW SCH (08:38)
[2016-04-13] MEDS: FAMOTIDINE 20 MG TAB PO SCH ×2 (08:38→20:49)
[2016-04-13] MEDS: DOCUSATE SODIUM 50 MG/SENNA 8.6 MG TAB PO SCH ×2 (08:38→20:50)
[2016-04-13] MEDS: CALCIUM/VITAMIN D 250 MG/125 U TAB PO SCH ×2 (08:38→20:49)
[2016-04-13] MEDS: LACTIC ACID (AMMONIUM LACTATE) 12% LOTION 225 GM BTL TOPICAL SCH ×2 (08:38→20:50)
[2016-04-13] MEDS: NYSTATIN 100,000 U/GM PWD 15 GM BTL TOPICAL SCH ×2 (08:38→20:50)
[2016-04-13] MEDS: CARISOPRODOL 350 MG TAB PO PRN ×2 (12:19→20:49)
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
[2016-04-13 16:00] VITALS: BP 128/68; PULSE 74; RESP 16; TEMP 97.8; O2SAT 99
[2016-04-13 20:00] VITALS: BP 152/70; PULSE 92; RESP 20; TEMP 99.5; O2SAT 96
[2016-04-13] MEDS: AQUAPHOR OINT 50 APPLIC/50 GM TUBE TOP SCH (20:50)
[2016-04-14] VITALS: BP 134/70; PULSE 81; RESP 20; TEMP 98.3; O2SAT 96
[2016-04-14] MEDS: ENOXAPARIN SODIUM 60 MG/0.6 ML SYRINGE SQ SCH (05:18)
[2016-04-14 08:00] VITALS: BP 125/64; PULSE 84; RESP 14; TEMP 97.2; O2SAT 97
[2016-04-14] MEDS: DOCUSATE SODIUM 50 MG/SENNA 8.6 MG TAB PO SCH ×2 (08:59→21:37)
[2016-04-14] MEDS: CALCIUM/VITAMIN D 250 MG/125 U TAB PO SCH ×2 (09:00→21:37)
[2016-04-14] MEDS: METOPROLOL TARTRATE 25 MG TAB PO SCH ×2 (09:00→21:37)
[2016-04-14] MEDS: LACTIC ACID (AMMONIUM LACTATE) 12% LOTION 225 GM BTL TOPICAL SCH ×2 (09:00→21:00)
[2016-04-14] MEDS: FAMOTIDINE 20 MG TAB PO SCH ×2 (09:00→21:38)
[2016-04-14] MEDS: MULTIVITAMINS/IRON/MINERALS CHEWABLE TAB CHEW SCH (09:00)
[2016-04-14] MEDS: NYSTATIN 100,000 U/GM PWD 15 GM BTL TOPICAL SCH ×2 (09:00→21:00)
[2016-04-14] MEDS: CARISOPRODOL 350 MG TAB PO PRN ×2 (09:39→21:37)
[2016-04-14 12:00] VITALS: BP 138/72; PULSE 78; RESP 16; TEMP 96.9; O2SAT 98
[2016-04-14] MEDS: HYDROmorphone HCL 4 MG TAB PO PRN (12:34)
[2016-04-14 16:00] VITALS: BP 119/69; PULSE 88; RESP 16; TEMP 97.4; O2SAT 97
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
[2016-04-14 20:00] VITALS: BP 133/69; PULSE 86; RESP 20; TEMP 96.6; O2SAT 96
[2016-04-14] MEDS: AQUAPHOR OINT 50 APPLIC/50 GM TUBE TOP SCH (21:00)
[2016-04-15] VITALS: BP 127/66; PULSE 98; RESP 18; TEMP 99; O2SAT 99
[2016-04-15] MEDS: ENOXAPARIN SODIUM 60 MG/0.6 ML SYRINGE SQ SCH ×2 (04:46→16:53)
[2016-04-15 08:00] VITALS: BP 131/74; PULSE 74; RESP 14; TEMP 98.1; O2SAT 99
[2016-04-15] MEDS: METOPROLOL TARTRATE 25 MG TAB PO SCH ×2 (08:12→19:34)
[2016-04-15] MEDS: MULTIVITAMINS/IRON/MINERALS CHEWABLE TAB CHEW SCH (08:12)
[2016-04-15] MEDS: DOCUSATE SODIUM 50 MG/SENNA 8.6 MG TAB PO SCH ×2 (08:12→19:34)
[2016-04-15] MEDS: CALCIUM/VITAMIN D 250 MG/125 U TAB PO SCH ×2 (08:12→19:34)
[2016-04-15] MEDS: FAMOTIDINE 20 MG TAB PO SCH ×2 (08:12→19:34)
[2016-04-15] MEDS: LACTIC ACID (AMMONIUM LACTATE) 12% LOTION 225 GM BTL TOPICAL SCH ×2 (08:13→19:35)
[2016-04-15] MEDS: NYSTATIN 100,000 U/GM PWD 15 GM BTL TOPICAL SCH ×2 (08:13→19:35)
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
[2016-04-15 12:00] VITALS: BP 138/66; PULSE 68; RESP 14; TEMP 98.9; O2SAT 99
[2016-04-15] MEDS: CARISOPRODOL 350 MG TAB PO PRN ×2 (13:44→23:09)
[2016-04-15 16:00] VITALS: BP 132/73; PULSE 88; RESP 16; TEMP 96.7; O2SAT 98
[2016-04-15] MEDS: AQUAPHOR OINT 50 APPLIC/50 GM TUBE TOP SCH (19:34)
[2016-04-15 20:00] VITALS: BP 108/84; PULSE 75; RESP 18; TEMP 97; O2SAT 99
[2016-04-16] VITALS: BP 107/80; PULSE 80; RESP 20; TEMP 97.2; O2SAT 97
[2016-04-16] MEDS: ENOXAPARIN SODIUM 60 MG/0.6 ML SYRINGE SQ SCH ×2 (04:43→18:12)
[2016-04-16 08:00] VITALS: BP 125/79; PULSE 90; RESP 18; TEMP 96.3; O2SAT 100
[2016-04-16] MEDS: NYSTATIN 100,000 U/GM PWD 15 GM BTL TOPICAL SCH ×2 (09:00→19:45)
[2016-04-16] MEDS: LACTIC ACID (AMMONIUM LACTATE) 12% LOTION 225 GM BTL TOPICAL SCH ×2 (09:00→19:43)
[2016-04-16 12:00] VITALS: BP 145/77; PULSE 92; RESP 20; TEMP 96.7; O2SAT 98
[2016-04-16] MEDS: CARISOPRODOL 350 MG TAB PO PRN ×2 (12:21→19:42)
[2016-04-16] MEDS: METOPROLOL TARTRATE 25 MG TAB PO SCH ×2 (12:22→19:43)
[2016-04-16] MEDS: ERGOCALCIFEROL (VIT D2) 50,000 UNIT CAP PO SCH (12:22)
[2016-04-16] MEDS: MULTIVITAMINS/IRON/MINERALS CHEWABLE TAB CHEW SCH (12:22)
[2016-04-16] MEDS: FAMOTIDINE 20 MG TAB PO SCH ×2 (12:22→19:42)
[2016-04-16] MEDS: CALCIUM/VITAMIN D 250 MG/125 U TAB PO SCH ×2 (12:22→19:42)
[2016-04-16] MEDS: DOCUSATE SODIUM 50 MG/SENNA 8.6 MG TAB PO SCH ×2 (12:22→19:42)
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
[2016-04-16 16:00] VITALS: BP 137/86; PULSE 91; RESP 20; TEMP 96.1; O2SAT 98
[2016-04-16] MEDS: AQUAPHOR OINT 50 APPLIC/50 GM TUBE TOP SCH (19:43)
[2016-04-17] MEDS: ENOXAPARIN SODIUM 60 MG/0.6 ML SYRINGE SQ SCH ×2 (04:00→17:37)
[2016-04-17 08:00] VITALS: BP 135/70; PULSE 116; RESP 19; TEMP 98.4; O2SAT 97
[2016-04-17] MEDS: CALCIUM/VITAMIN D 250 MG/125 U TAB PO SCH ×2 (08:08→21:08)
[2016-04-17] MEDS: MULTIVITAMINS/IRON/MINERALS CHEWABLE TAB CHEW SCH (08:08)
[2016-04-17] MEDS: METOPROLOL TARTRATE 25 MG TAB PO SCH ×2 (08:09→21:09)
[2016-04-17] MEDS: DOCUSATE SODIUM 50 MG/SENNA 8.6 MG TAB PO SCH ×2 (08:09→21:00)
[2016-04-17] MEDS: FAMOTIDINE 20 MG TAB PO SCH ×2 (08:09→21:08)
[2016-04-17] MEDS: LACTIC ACID (AMMONIUM LACTATE) 12% LOTION 225 GM BTL TOPICAL SCH ×2 (08:09→21:00)
[2016-04-17] MEDS: NYSTATIN 100,000 U/GM PWD 15 GM BTL TOPICAL SCH ×2 (08:09→21:00)
[2016-04-17 12:00] VITALS: BP 132/75; PULSE 112; RESP 19; TEMP 98.6; O2SAT 98
[2016-04-17] MEDS: CARISOPRODOL 350 MG TAB PO PRN ×2 (12:22→21:08)
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
[2016-04-17 20:00] VITALS: BP 132/84; PULSE 100; RESP 20; TEMP 98.3; O2SAT 99
[2016-04-17] MEDS: AQUAPHOR OINT 50 APPLIC/50 GM TUBE TOP SCH (21:00)
[2016-04-18] VITALS: BP 130/82; PULSE 78; RESP 20; TEMP 97.4; O2SAT 100
[2016-04-18] MEDS: ENOXAPARIN SODIUM 60 MG/0.6 ML SYRINGE SQ SCH ×2 (04:40→16:00)
[2016-04-18 08:00] VITALS: BP 132/83; PULSE 86; RESP 19; TEMP 98.2; O2SAT 96
[2016-04-18] MEDS: NYSTATIN 100,000 U/GM PWD 15 GM BTL TOPICAL SCH ×2 (08:27→21:00)
[2016-04-18] MEDS: CALCIUM/VITAMIN D 250 MG/125 U TAB PO SCH ×2 (08:27→21:02)
[2016-04-18] MEDS: METOPROLOL TARTRATE 25 MG TAB PO SCH ×2 (08:27→21:01)
[2016-04-18] MEDS: DOCUSATE SODIUM 50 MG/SENNA 8.6 MG TAB PO SCH ×2 (08:27→21:00)
[2016-04-18] MEDS: LACTIC ACID (AMMONIUM LACTATE) 12% LOTION 225 GM BTL TOPICAL SCH ×2 (08:27→21:00)
[2016-04-18] MEDS: MULTIVITAMINS/IRON/MINERALS CHEWABLE TAB CHEW SCH (08:27)
[2016-04-18] MEDS: FAMOTIDINE 20 MG TAB PO SCH ×2 (08:27→21:01)
[2016-04-18] MEDS: CARISOPRODOL 350 MG TAB PO PRN ×2 (11:49→21:01)
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
[2016-04-18 20:00] VITALS: BP 139/68; PULSE 85; RESP 18; TEMP 96.9; O2SAT 98
[2016-04-18] MEDS: AQUAPHOR OINT 50 APPLIC/50 GM TUBE TOP SCH (21:00)
[2016-04-19] MEDS: ENOXAPARIN SODIUM 60 MG/0.6 ML SYRINGE SQ SCH ×2 (04:00→16:02)
[2016-04-19 08:00] VITALS: BP 129/74; PULSE 75; RESP 19; TEMP 96; O2SAT 99
[2016-04-19] MEDS: NYSTATIN 100,000 U/GM PWD 15 GM BTL TOPICAL SCH ×2 (09:00→21:00)
[2016-04-19] MEDS: LACTIC ACID (AMMONIUM LACTATE) 12% LOTION 225 GM BTL TOPICAL SCH ×2 (09:00→21:00)
[2016-04-19] MEDS: CALCIUM/VITAMIN D 250 MG/125 U TAB PO SCH ×2 (09:22→21:37)
[2016-04-19] MEDS: METOPROLOL TARTRATE 25 MG TAB PO SCH ×2 (09:22→21:38)
[2016-04-19] MEDS: MULTIVITAMINS/IRON/MINERALS CHEWABLE TAB CHEW SCH (09:22)
[2016-04-19] MEDS: FAMOTIDINE 20 MG TAB PO SCH ×2 (09:23→21:38)
[2016-04-19] MEDS: DOCUSATE SODIUM 50 MG/SENNA 8.6 MG TAB PO SCH ×2 (09:23→21:38)
[2016-04-19 12:00] VITALS: BP 131/83; PULSE 83; RESP 19; TEMP 95.7; O2SAT 98
[2016-04-19 16:00] VITALS: BP 137/87; PULSE 100; RESP 19; TEMP 96; O2SAT 99
[2016-04-19] MEDS: CARISOPRODOL 350 MG TAB PO PRN (16:02)
[2016-04-19 20:00] VITALS: BP 128/77; PULSE 89; RESP 18; TEMP 96.8; O2SAT 96
[2016-04-19] MEDS: AQUAPHOR OINT 50 APPLIC/50 GM TUBE TOP SCH (21:00)
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
[2016-04-20] VITALS: BP 134/78; PULSE 81; RESP 18; TEMP 97.4; O2SAT 100
[2016-04-20] MEDS: ENOXAPARIN SODIUM 60 MG/0.6 ML SYRINGE SQ SCH ×2 (04:24→16:00)
[2016-04-20 05:59] LABS: BICARBONATE 28.8 MEQ/L (21.0-32.0); POTASSIUM 4.1 MEQ/L (3.5-5.1)
[2016-04-20 06:22] LABS: AUTOMATED NEUTROPHIL # 5.1 TH/MM3 (1.8-7.7); BASOPHIL % 0.3 % (0.0-2.0); EOSINOPHIL # 0.3 TH/MM3 (0-0.4); EOSINOPHIL % 3.5 % (0.0-4.0); LYMPH % 25.3 % (9.0-44.0); MEAN CELL VOLUME 74.3 FL (80.0-100.0); MEAN CORPUSCULAR HEMOGLOBIN 23.7 PG (27.0-34.0); MEAN CORPUSCULAR HGB CONC 31.9 % (32.0-36.0); MONO % 5.3 % (0.0-8.0); NEUT % 65.6 % (16.0-70.0); PLATELET COUNT 251 TH/MM3 (150-450); RED CELL DISTRIBUTION WIDTH 18.3 % (11.6-17.2); WHITE BLOOD COUNT 7.8 TH/MM3 (4.0-11.0)
[2016-04-20 06:42] LABS: HEMO FLAGS AUTO DIFF
[2016-04-20 07:34] LABS: EOSINOPHILS 4 % (0-4); NEUTROPHIL # MANUAL DIFF 5.1 TH/MM3 (1.8-7.7); POLYS (SEG NEUTROPHILS) 66 % (16-70); WBC DIFF SAMPLE 100
[2016-04-20 07:35] LABS: OVALOCYTES 1+ (NORMAL); PLATELET ESTIMATE SMEAR NORMAL (NORMAL); PLATELET MORPHOLOGY NORMAL (NORMAL); SCAN/DIFF FINAL DIFF MANUAL
[2016-04-20 08:00] VITALS: BP 120/65; PULSE 79; RESP 20; TEMP 98.1; O2SAT 97
[2016-04-20] MEDS: NYSTATIN 100,000 U/GM PWD 15 GM BTL TOPICAL SCH ×2 (09:00→21:00)
[2016-04-20] MEDS: LACTIC ACID (AMMONIUM LACTATE) 12% LOTION 225 GM BTL TOPICAL SCH ×2 (09:00→21:00)
[2016-04-20] MEDS: DOCUSATE SODIUM 50 MG/SENNA 8.6 MG TAB PO SCH ×2 (10:14→21:06)
[2016-04-20] MEDS: MULTIVITAMINS/IRON/MINERALS CHEWABLE TAB CHEW SCH (10:14)
[2016-04-20] MEDS: CALCIUM/VITAMIN D 250 MG/125 U TAB PO SCH ×2 (10:14→21:06)
[2016-04-20] MEDS: METOPROLOL TARTRATE 25 MG TAB PO SCH ×2 (10:14→21:07)
[2016-04-20] MEDS: FAMOTIDINE 20 MG TAB PO SCH ×2 (10:14→21:07)
[2016-04-20] MEDS: CARISOPRODOL 350 MG TAB PO PRN ×2 (10:14→17:54)
[2016-04-20 12:00] VITALS: BP 160/67; PULSE 78; RESP 18; TEMP 98.7; O2SAT 98
[2016-04-20 16:00] VITALS: BP 128/73; PULSE 96; RESP 19; TEMP 97.8; O2SAT 97
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
[2016-04-20 20:00] VITALS: BP 147/77; PULSE 104; RESP 20; TEMP 98.4; O2SAT 96
[2016-04-20] MEDS: AQUAPHOR OINT 50 APPLIC/50 GM TUBE TOP SCH (21:00)
[2016-04-21] VITALS: BP 133/75; PULSE 98; RESP 20; TEMP 97.9; O2SAT 99
[2016-04-21] MEDS: ENOXAPARIN SODIUM 60 MG/0.6 ML SYRINGE SQ SCH ×2 (02:00→15:58)
[2016-04-21] MEDS: CARISOPRODOL 350 MG TAB PO PRN ×3 (02:01→21:31)
[2016-04-21 08:00] VITALS: BP 161/76; PULSE 83; RESP 20; TEMP 98.9; O2SAT 99
[2016-04-21] MEDS: NYSTATIN 100,000 U/GM PWD 15 GM BTL TOPICAL SCH ×2 (09:00→21:00)
[2016-04-21] MEDS: LACTIC ACID (AMMONIUM LACTATE) 12% LOTION 225 GM BTL TOPICAL SCH ×2 (09:00→21:00)
[2016-04-21] MEDS: MULTIVITAMINS/IRON/MINERALS CHEWABLE TAB CHEW SCH (09:58)
[2016-04-21] MEDS: METOPROLOL TARTRATE 25 MG TAB PO SCH ×2 (09:58→21:31)
[2016-04-21] MEDS: CALCIUM/VITAMIN D 250 MG/125 U TAB PO SCH ×2 (09:58→21:31)
[2016-04-21] MEDS: DOCUSATE SODIUM 50 MG/SENNA 8.6 MG TAB PO SCH ×2 (09:58→21:31)
[2016-04-21] MEDS: FAMOTIDINE 20 MG TAB PO SCH ×2 (09:58→21:31)
[2016-04-21 12:00] VITALS: BP 122/83; PULSE 107; RESP 19; TEMP 97.9; O2SAT 99
[2016-04-21 16:00] VITALS: BP 145/77; PULSE 100; RESP 19; TEMP 97.4; O2SAT 99
[2016-04-21] MEDS: AQUAPHOR OINT 50 APPLIC/50 GM TUBE TOP SCH (21:00)
[2016-04-21 22:52] VITALS: BP 117/73; PULSE 100; RESP 22; TEMP 97.6; O2SAT 99
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
[2016-04-22 00:37] VITALS: BP 130/72; PULSE 106; RESP 22; TEMP 98.4; O2SAT 99
[2016-04-22] MEDS: ENOXAPARIN SODIUM 60 MG/0.6 ML SYRINGE SQ SCH ×2 (05:23→16:59)
[2016-04-22] MEDS: CARISOPRODOL 350 MG TAB PO PRN ×2 (05:27→16:59)
[2016-04-22 08:00] VITALS: BP 134/82; PULSE 87; RESP 20; TEMP 97.8; O2SAT 96
[2016-04-22] MEDS: NYSTATIN 100,000 U/GM PWD 15 GM BTL TOPICAL SCH ×2 (09:00→20:08)
[2016-04-22] MEDS: LACTIC ACID (AMMONIUM LACTATE) 12% LOTION 225 GM BTL TOPICAL SCH ×2 (09:00→20:08)
[2016-04-22] MEDS: CALCIUM/VITAMIN D 250 MG/125 U TAB PO SCH ×2 (09:33→20:07)
[2016-04-22] MEDS: METOPROLOL TARTRATE 25 MG TAB PO SCH ×2 (09:33→20:07)
[2016-04-22] MEDS: MULTIVITAMINS/IRON/MINERALS CHEWABLE TAB CHEW SCH (09:33)
[2016-04-22] MEDS: FAMOTIDINE 20 MG TAB PO SCH ×2 (09:33→20:07)
[2016-04-22] MEDS: DOCUSATE SODIUM 50 MG/SENNA 8.6 MG TAB PO SCH ×2 (09:33→20:07)
[2016-04-22 12:00] VITALS: BP 143/66; PULSE 87; RESP 20; TEMP 98.1; O2SAT 99
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
[2016-04-22 16:00] VITALS: BP 141/79; PULSE 86; RESP 20; TEMP 97.4; O2SAT 100
[2016-04-22 20:00] VITALS: BP 122/85; PULSE 82; RESP 17; TEMP 97.8; O2SAT 99
[2016-04-22] MEDS: AQUAPHOR OINT 50 APPLIC/50 GM TUBE TOP SCH (20:08)
[2016-04-23] VITALS: BP 132/69; PULSE 84; RESP 17; TEMP 98.2; O2SAT 99
[2016-04-23] MEDS: CARISOPRODOL 350 MG TAB PO PRN ×3 (01:21→21:41)
[2016-04-23] MEDS: ENOXAPARIN SODIUM 60 MG/0.6 ML SYRINGE SQ SCH (04:31)
[2016-04-23 08:00] VITALS: BP 129/83; PULSE 88; RESP 19; TEMP 97.3; O2SAT 97
[2016-04-23] MEDS: NYSTATIN 100,000 U/GM PWD 15 GM BTL TOPICAL SCH ×2 (09:00→19:58)
[2016-04-23] MEDS: DOCUSATE SODIUM 50 MG/SENNA 8.6 MG TAB PO SCH ×2 (09:00→19:57)
[2016-04-23] MEDS: LACTIC ACID (AMMONIUM LACTATE) 12% LOTION 225 GM BTL TOPICAL SCH ×2 (09:00→19:58)
[2016-04-23 12:00] VITALS: BP 127/78; PULSE 93; RESP 19; TEMP 98.6; O2SAT 96
[2016-04-23] MEDS: MULTIVITAMINS/IRON/MINERALS CHEWABLE TAB CHEW SCH (12:57)
[2016-04-23] MEDS: ERGOCALCIFEROL (VIT D2) 50,000 UNIT CAP PO SCH (12:58)
[2016-04-23] MEDS: METOPROLOL TARTRATE 25 MG TAB PO SCH ×2 (12:58→19:56)
[2016-04-23] MEDS: CALCIUM/VITAMIN D 250 MG/125 U TAB PO SCH ×2 (12:59→19:57)
[2016-04-23] MEDS: FAMOTIDINE 20 MG TAB PO SCH ×2 (12:59→19:57)
[2016-04-23] MEDS: AQUAPHOR OINT 50 APPLIC/50 GM TUBE TOP SCH (19:57)
[2016-04-23 20:00] VITALS: BP 120/67; PULSE 78; RESP 18; TEMP 98; O2SAT 99
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
[2016-04-24] VITALS: BP 134/96; PULSE 102; RESP 18; TEMP 98.1; O2SAT 99
[2016-04-24] MEDS: ENOXAPARIN SODIUM 60 MG/0.6 ML SYRINGE SQ SCH ×3 (04:16→16:00)
[2016-04-24 08:30] VITALS: BP 120/77; PULSE 92; RESP 16; TEMP 96.2; O2SAT 98
[2016-04-24] MEDS: NYSTATIN 100,000 U/GM PWD 15 GM BTL TOPICAL SCH ×2 (09:00→19:56)
[2016-04-24] MEDS: DOCUSATE SODIUM 50 MG/SENNA 8.6 MG TAB PO SCH ×2 (09:00→19:53)
[2016-04-24] MEDS: LACTIC ACID (AMMONIUM LACTATE) 12% LOTION 225 GM BTL TOPICAL SCH ×2 (09:00→19:56)
[2016-04-24 12:30] VITALS: BP 128/72; PULSE 81; RESP 17; TEMP 96.6; O2SAT 97
[2016-04-24] MEDS: CARISOPRODOL 350 MG TAB PO PRN ×2 (12:41→21:42)
[2016-04-24] MEDS: METOPROLOL TARTRATE 25 MG TAB PO SCH ×2 (12:41→19:52)
[2016-04-24] MEDS: FAMOTIDINE 20 MG TAB PO SCH ×2 (12:41→19:53)
[2016-04-24] MEDS: MULTIVITAMINS/IRON/MINERALS CHEWABLE TAB CHEW SCH (12:41)
[2016-04-24] MEDS: CALCIUM/VITAMIN D 250 MG/125 U TAB PO SCH ×2 (12:41→19:52)
[2016-04-24 16:07] VITALS: BP 114/67; PULSE 80; RESP 17; TEMP 96.6; O2SAT 94
[2016-04-24] MEDS: AQUAPHOR OINT 50 APPLIC/50 GM TUBE TOP SCH (19:56)
[2016-04-24 20:00] VITALS: BP 121/78; PULSE 80; RESP 20; TEMP 95.9; O2SAT 99
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
[2016-04-25] MEDS: ENOXAPARIN SODIUM 60 MG/0.6 ML SYRINGE SQ SCH ×2 (05:35→16:25)
[2016-04-25 08:00] VITALS: BP 137/69; PULSE 88; RESP 16; TEMP 98.1; O2SAT 98
[2016-04-25] MEDS: NYSTATIN 100,000 U/GM PWD 15 GM BTL TOPICAL SCH ×2 (09:00→21:00)
[2016-04-25] MEDS: DOCUSATE SODIUM 50 MG/SENNA 8.6 MG TAB PO SCH ×2 (09:00→22:12)
[2016-04-25] MEDS: FAMOTIDINE 20 MG TAB PO SCH ×2 (10:18→22:11)
[2016-04-25] MEDS: CALCIUM/VITAMIN D 250 MG/125 U TAB PO SCH ×2 (10:18→22:11)
[2016-04-25] MEDS: METOPROLOL TARTRATE 25 MG TAB PO SCH ×2 (10:18→22:11)
[2016-04-25] MEDS: CARISOPRODOL 350 MG TAB PO PRN ×2 (10:18→16:27)
[2016-04-25] MEDS: MULTIVITAMINS/IRON/MINERALS CHEWABLE TAB CHEW SCH (10:19)
[2016-04-25] MEDS: LACTIC ACID (AMMONIUM LACTATE) 12% LOTION 225 GM BTL TOPICAL SCH ×2 (10:22→22:12)
[2016-04-25 12:00] VITALS: BP 141/86; PULSE 81; RESP 18; TEMP 97.1; O2SAT 96
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
[2016-04-25 16:00] VITALS: BP 126/80; PULSE 94; RESP 16; TEMP 96.4; O2SAT 98
[2016-04-25] MEDS: AQUAPHOR OINT 50 APPLIC/50 GM TUBE TOP SCH (21:00)
[2016-04-26] VITALS: BP 135/82; PULSE 97; RESP 17; TEMP 97.6; O2SAT 98
[2016-04-26] MEDS: CARISOPRODOL 350 MG TAB PO PRN ×3 (00:40→20:50)
[2016-04-26] MEDS: ENOXAPARIN SODIUM 60 MG/0.6 ML SYRINGE SQ SCH ×2 (04:42→17:41)
[2016-04-26 06:53] LABS: ANION GAP 9 MEQ/L (5-15); AST (GOT) 8 U/L (15-37); BICARBONATE 27.8 MEQ/L (21.0-32.0); BLOOD UREA NITROGEN 10 MG/DL (7-18); CHLORIDE 104 MEQ/L (98-107); GLOMERULAR FILTRATION RATE 78 ML/MIN (>89); POTASSIUM 3.4 MEQ/L (3.5-5.1); SODIUM (NA) 141 MEQ/L (136-145)
[2016-04-26 06:56] LABS: ALKALINE PHOSPHATASE 79 U/L (45-117); ALT (GPT) 16 U/L (12-78); TOTAL BILIRUBIN ADULT 0.4 MG/DL (0.2-1.0)
[2016-04-26 08:00] VITALS: BP 138/76; PULSE 95; RESP 19; TEMP 98; O2SAT 97
[2016-04-26] MEDS: DOCUSATE SODIUM 50 MG/SENNA 8.6 MG TAB PO SCH ×2 (09:00→20:51)
[2016-04-26] MEDS: FAMOTIDINE 20 MG TAB PO SCH ×2 (11:09→20:51)
[2016-04-26] MEDS: METOPROLOL TARTRATE 25 MG TAB PO SCH ×2 (11:09→20:51)
[2016-04-26] MEDS: MULTIVITAMINS/IRON/MINERALS CHEWABLE TAB CHEW SCH (11:10)
[2016-04-26] MEDS: CALCIUM/VITAMIN D 250 MG/125 U TAB PO SCH ×2 (11:10→20:51)
[2016-04-26] MEDS: LACTIC ACID (AMMONIUM LACTATE) 12% LOTION 225 GM BTL TOPICAL SCH ×2 (11:13→20:51)
[2016-04-26] MEDS: NYSTATIN 100,000 U/GM PWD 15 GM BTL TOPICAL SCH ×2 (11:13→20:53)
[2016-04-26 12:00] VITALS: BP 141/82; PULSE 100; RESP 20; TEMP 97.2; O2SAT 95
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
[2016-04-26] MEDS: PSYLLIUM FIBER SF/GF 6 GM POWD PKT PO SCH ×2 (17:41→17:46)
[2016-04-26 18:00] VITALS: BP 134/74; PULSE 109; RESP 19; TEMP 99.1; O2SAT 98
[2016-04-26 20:00] VITALS: BP 132/81; PULSE 118; RESP 20; TEMP 97.6; O2SAT 98
[2016-04-26] MEDS: AQUAPHOR OINT 50 APPLIC/50 GM TUBE TOP SCH (20:51)
[2016-04-26] MEDS: POLYETHYLENE GLYCOL 17 GM PKG PO SCH (20:51)
[2016-04-27] VITALS: BP 123/74; PULSE 97; RESP 20; TEMP 97.5; O2SAT 96
[2016-04-27] MEDS: ENOXAPARIN SODIUM 60 MG/0.6 ML SYRINGE SQ SCH ×2 (05:10→17:05)
[2016-04-27] MEDS: CARISOPRODOL 350 MG TAB PO PRN ×3 (05:11→23:08)
[2016-04-27 08:00] VITALS: BP 156/72; PULSE 81; RESP 20; TEMP 98.9; O2SAT 96
[2016-04-27] MEDS: PSYLLIUM FIBER SF/GF 6 GM POWD PKT PO SCH ×3 (09:00→17:05)
[2016-04-27] MEDS: DOCUSATE SODIUM 50 MG/SENNA 8.6 MG TAB PO SCH ×2 (09:00→19:25)
[2016-04-27] MEDS: NYSTATIN 100,000 U/GM PWD 15 GM BTL TOPICAL SCH ×2 (09:00→19:27)
[2016-04-27] MEDS: LACTIC ACID (AMMONIUM LACTATE) 12% LOTION 225 GM BTL TOPICAL SCH ×2 (09:00→19:25)
[2016-04-27] MEDS: METOPROLOL TARTRATE 25 MG TAB PO SCH ×2 (10:19→19:25)
[2016-04-27] MEDS: MULTIVITAMINS/IRON/MINERALS CHEWABLE TAB CHEW SCH (10:19)
[2016-04-27] MEDS: FAMOTIDINE 20 MG TAB PO SCH ×2 (10:19→19:25)
[2016-04-27] MEDS: CALCIUM/VITAMIN D 250 MG/125 U TAB PO SCH ×2 (10:19→19:25)
[2016-04-27 12:00] VITALS: BP 141/85; PULSE 100; RESP 20; TEMP 97.8; O2SAT 98
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
[2016-04-27] MEDS: AQUAPHOR OINT 50 APPLIC/50 GM TUBE TOP SCH (19:25)
[2016-04-27] MEDS: POLYETHYLENE GLYCOL 17 GM PKG PO SCH (19:25)
[2016-04-27 20:00] VITALS: BP 112/74; PULSE 96; RESP 20; TEMP 98.6; O2SAT 99
[2016-04-28] VITALS: BP 136/72; PULSE 91; RESP 20; TEMP 97.9; O2SAT 97
[2016-04-28] MEDS: ENOXAPARIN SODIUM 60 MG/0.6 ML SYRINGE SQ SCH ×2 (05:28→16:00)
[2016-04-28 08:00] VITALS: BP 135/72; PULSE 95; RESP 18; TEMP 98.7; O2SAT 98
[2016-04-28] MEDS: LACTIC ACID (AMMONIUM LACTATE) 12% LOTION 225 GM BTL TOPICAL SCH ×2 (09:00→19:21)
[2016-04-28] MEDS: DOCUSATE SODIUM 50 MG/SENNA 8.6 MG TAB PO SCH ×2 (09:00→19:21)
[2016-04-28] MEDS: PSYLLIUM FIBER SF/GF 6 GM POWD PKT PO SCH (09:00)
[2016-04-28] MEDS: NYSTATIN 100,000 U/GM PWD 15 GM BTL TOPICAL SCH ×2 (09:00→19:21)
[2016-04-28] MEDS: FAMOTIDINE 20 MG TAB PO SCH ×2 (10:08→19:21)
[2016-04-28] MEDS: CALCIUM/VITAMIN D 250 MG/125 U TAB PO SCH ×2 (10:08→19:20)
[2016-04-28] MEDS: MULTIVITAMINS/IRON/MINERALS CHEWABLE TAB CHEW SCH (10:08)
[2016-04-28] MEDS: METOPROLOL TARTRATE 25 MG TAB PO SCH ×2 (10:08→19:20)
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
[2016-04-28] MEDS: CARISOPRODOL 350 MG TAB PO PRN ×2 (12:34→20:27)
[2016-04-28 12:36] VITALS: BP 133/84; PULSE 97; RESP 18; TEMP 98.4; O2SAT 97
[2016-04-28 16:02] VITALS: BP 126/68; PULSE 82; RESP 22; TEMP 97.4; O2SAT 99
[2016-04-28] MEDS: AQUAPHOR OINT 50 APPLIC/50 GM TUBE TOP SCH (19:21)
--- NOTE | 2016-04-28 19:28 | MG ---
cc: JAI WEEMS M.D. Lab No: [id number] Date: 04/28/2016 Age: Sex: M Race: TECHNIQUE: 17 channel EEG. DESCRIPTION: The background rhythm is a symmetrical alpha rhythm. Frequency 8 Hz. Amplitude is 10-20 microvolts. There is mild slowing in the theta range during drowsiness. There are no lateralizing features seen. There are no epileptiform discharges present. Photic stimulation results in a fairly well-developed driving response. INTERPRETATION: Normal EEG. MD ROXIE Martin/FRANCISCO /7:20 PM /7:27 PM
[2016-04-28 20:00] VITALS: BP 133/80; PULSE 100; RESP 20; TEMP 97.8; O2SAT 100
[2016-04-29] VITALS: BP 135/65; PULSE 85; RESP 20; TEMP 97.9; O2SAT 100
[2016-04-29] MEDS: ENOXAPARIN SODIUM 60 MG/0.6 ML SYRINGE SQ SCH ×2 (03:18→18:19)
[2016-04-29 08:00] VITALS: BP 137/71; PULSE 64; RESP 16; TEMP 96; O2SAT 97
[2016-04-29] MEDS: LACTIC ACID (AMMONIUM LACTATE) 12% LOTION 225 GM BTL TOPICAL SCH ×2 (09:00→19:33)
[2016-04-29] MEDS: MULTIVITAMINS/IRON/MINERALS CHEWABLE TAB CHEW SCH (09:00)
[2016-04-29] MEDS: DOCUSATE SODIUM 50 MG/SENNA 8.6 MG TAB PO SCH ×2 (09:00→19:33)
[2016-04-29] MEDS: NYSTATIN 100,000 U/GM PWD 15 GM BTL TOPICAL SCH ×2 (09:00→19:33)
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
[2016-04-29 12:00] VITALS: BP 140/73; PULSE 76; RESP 18; TEMP 96.4; O2SAT 96
[2016-04-29] MEDS: FAMOTIDINE 20 MG TAB PO SCH ×2 (12:31→19:34)
[2016-04-29] MEDS: METOPROLOL TARTRATE 25 MG TAB PO SCH ×2 (12:31→19:34)
[2016-04-29] MEDS: CALCIUM/VITAMIN D 250 MG/125 U TAB PO SCH ×2 (12:32→19:34)
[2016-04-29 16:00] VITALS: BP 134/75; PULSE 89; RESP 20; TEMP 96.9; O2SAT 99
[2016-04-29] MEDS: CARISOPRODOL 350 MG TAB PO PRN (18:18)
[2016-04-29] MEDS: AQUAPHOR OINT 50 APPLIC/50 GM TUBE TOP SCH (19:34)
[2016-04-29 20:00] VITALS: BP 126/77; PULSE 75; RESP 18; TEMP 97.9; O2SAT 99
[2016-04-30] VITALS: BP 132/70; PULSE 87; RESP 18; TEMP 96.6; O2SAT 99
[2016-04-30] MEDS: ENOXAPARIN SODIUM 60 MG/0.6 ML SYRINGE SQ SCH ×2 (02:54→16:00)
[2016-04-30] MEDS: CARISOPRODOL 350 MG TAB PO PRN ×3 (02:54→23:20)
[2016-04-30 08:19] VITALS: BP 140/81; PULSE 70; RESP 20; TEMP 96.4; O2SAT 96
[2016-04-30] MEDS: DOCUSATE SODIUM 50 MG/SENNA 8.6 MG TAB PO SCH ×2 (09:00→21:00)
[2016-04-30] MEDS: MULTIVITAMINS/IRON/MINERALS CHEWABLE TAB CHEW SCH (10:43)
[2016-04-30] MEDS: FAMOTIDINE 20 MG TAB PO SCH ×2 (10:43→22:01)
[2016-04-30] MEDS: METOPROLOL TARTRATE 25 MG TAB PO SCH ×2 (10:43→22:02)
[2016-04-30] MEDS: CALCIUM/VITAMIN D 250 MG/125 U TAB PO SCH ×2 (10:44→22:01)
[2016-04-30] MEDS: ERGOCALCIFEROL (VIT D2) 50,000 UNIT CAP PO SCH (10:44)
[2016-04-30] MEDS: LACTIC ACID (AMMONIUM LACTATE) 12% LOTION 225 GM BTL TOPICAL SCH ×2 (10:45→21:00)
[2016-04-30] MEDS: NYSTATIN 100,000 U/GM PWD 15 GM BTL TOPICAL SCH ×2 (10:45→21:00)
[2016-04-30 12:01] VITALS: BP 136/76; PULSE 86; RESP 20; TEMP 95.7; O2SAT 97
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
[2016-04-30 16:19] VITALS: BP 129/79; PULSE 81; RESP 20; TEMP 96.4; O2SAT 99
[2016-04-30 20:39] VITALS: BP 142/83; PULSE 89; RESP 18; TEMP 96.6; O2SAT 95
[2016-04-30] MEDS: AQUAPHOR OINT 50 APPLIC/50 GM TUBE TOP SCH (21:00)
[2016-04-30 22:53] LABS: TOTAL PROTEIN SPE 7.4 GM/DL (6.0-7.6)
[2016-05-01 00:26] VITALS: BP 147/85; PULSE 98; RESP 20; TEMP 96.5; O2SAT 97
[2016-05-01] MEDS: ENOXAPARIN SODIUM 60 MG/0.6 ML SYRINGE SQ SCH ×2 (02:58→16:49)
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
--- NOTE | 2016-05-01 07:57 | HHI.PR ---
Subjective Remarks no pain in legs today Objective Vital Signs Date Time Temp Pulse Resp B/P Pulse Ox O2 Delivery O2 Flow Rate FiO2 05/01/16 00:44 16 05/01/16 00:44 16 05/01/16 00:26 96.5 98 20 147/85 97 04/30/16 20:39 96.6 89 18 142/83 95 04/30/16 16:19 96.4 81 20 129/79 99 04/30/16 12:01 95.7 86 20 136/76 97 04/30/16 08:19 96.4 70 20 140/81 96 I/O 04/30/16 04/30/16 04/30/16 05/01/16 05/01/16 05/01/16 07:00 15:00 23:00 07:00 15:00 23:00 Intake Total 0 ml 960 ml 580 ml 360 ml Output Total 450 ml 1000 ml 1000 ml 800 ml Balance -450 ml -40 ml -420 ml -440 ml Intake Oral 960 ml 580 ml 360 ml IV Total 0 ml Output Urine Total 450 ml 1000 ml 1000 ml 800 ml # Bowel Movements 0 2 Other Results cpk labs nl so far Objective Remarks awke alert no painin legs he states Assessment and Plan Assessment and Plan imp i dw dr qiu no sign thoracic cord compression and no c spine cord compression on ct on admit some mod stenosis high lumbar spine cpk nl awit emg consider lexapro for his anxiety which may be restricitng his activity some bilat ta weak but improved acc to Gregory Keane MD May 01, 2016 07:57
[2016-05-01 08:00] VITALS: BP 122/67; PULSE 68; RESP 17; TEMP 96.4; O2SAT 95
[2016-05-01] MEDS: DOCUSATE SODIUM 50 MG/SENNA 8.6 MG TAB PO SCH ×2 (09:00→21:00)
[2016-05-01] MEDS: CALCIUM/VITAMIN D 250 MG/125 U TAB PO SCH ×2 (10:24→21:25)
[2016-05-01] MEDS: MULTIVITAMINS/IRON/MINERALS CHEWABLE TAB CHEW SCH (10:24)
[2016-05-01] MEDS: METOPROLOL TARTRATE 25 MG TAB PO SCH ×2 (10:24→21:24)
[2016-05-01] MEDS: FAMOTIDINE 20 MG TAB PO SCH ×2 (10:26→21:25)
[2016-05-01] MEDS: NYSTATIN 100,000 U/GM PWD 15 GM BTL TOPICAL SCH ×2 (10:26→21:00)
[2016-05-01] MEDS: LACTIC ACID (AMMONIUM LACTATE) 12% LOTION 225 GM BTL TOPICAL SCH ×2 (10:26→21:00)
[2016-05-01 12:00] VITALS: BP 127/86; PULSE 97; RESP 18; TEMP 96.7; O2SAT 97
[2016-05-01 12:02] LABS: ALBUMIN SPE 3.54 GM/DL (3.50-5.00); ALPHA 1 GLOBULIN 0.16 GM/DL (0.11-0.29); ALPHA 2 GLOBULIN 0.52 GM/DL (0.22-1.00)
[2016-05-01 12:03] LABS: BETA GLOBULINS (SPE) 0.54 GM/DL (0.53-1.03)
[2016-05-01] MEDS: CARISOPRODOL 350 MG TAB PO PRN ×2 (13:22→21:24)
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
[2016-05-01 16:00] VITALS: BP 117/61; PULSE 72; RESP 16; TEMP 95.7; O2SAT 96
[2016-05-01 20:00] VITALS: PULSE 91; RESP 20; TEMP 98; O2SAT 98
[2016-05-01] MEDS: AQUAPHOR OINT 50 APPLIC/50 GM TUBE TOP SCH (21:00)
[2016-05-02] MEDS: ENOXAPARIN SODIUM 60 MG/0.6 ML SYRINGE SQ SCH ×2 (05:30→16:00)
[2016-05-02 08:00] VITALS: BP 135/56; PULSE 95; RESP 22; TEMP 96.2; O2SAT 97
[2016-05-02] MEDS: METOPROLOL TARTRATE 25 MG TAB PO SCH ×2 (08:47→22:17)
[2016-05-02] MEDS: FAMOTIDINE 20 MG TAB PO SCH ×2 (08:47→22:16)
[2016-05-02] MEDS: MULTIVITAMINS/IRON/MINERALS CHEWABLE TAB CHEW SCH (08:47)
[2016-05-02] MEDS: CALCIUM/VITAMIN D 250 MG/125 U TAB PO SCH ×2 (08:47→22:16)
[2016-05-02] MEDS: LACTIC ACID (AMMONIUM LACTATE) 12% LOTION 225 GM BTL TOPICAL SCH ×2 (08:49→21:00)
[2016-05-02] MEDS: NYSTATIN 100,000 U/GM PWD 15 GM BTL TOPICAL SCH ×2 (08:50→21:00)
[2016-05-02] MEDS: DOCUSATE SODIUM 50 MG/SENNA 8.6 MG TAB PO SCH ×2 (08:50→21:00)
[2016-05-02 12:00] VITALS: BP 137/86; PULSE 100; RESP 20; TEMP 95.6; O2SAT 97
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
[2016-05-02 16:00] VITALS: PULSE 81; RESP 20; TEMP 95.7; O2SAT 97
[2016-05-02] MEDS: CARISOPRODOL 350 MG TAB PO PRN (16:33)
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
[2016-05-02 17:35] LABS: ANA SCREEN NEG (NEG)
[2016-05-02 20:00] VITALS: BP 127/91; PULSE 108; RESP 20; TEMP 97.6; O2SAT 100
--- NOTE | 2016-05-02 20:38 | RADRPT ---
EXAM DATE/TIME: 05/02/2016 19:53 [place] COMPARISON: KNEE LEFT COMPLETE (4VWS), December 06, 2015, 10:09. INDICATIONS : Follow up left knee fracture. MEDICAL HISTORY : None. SURGICAL HISTORY : None. ENCOUNTER: Initial mild osteoporosis left knee. The ACUITY: 4 - 6 months PAIN SCORE: 0/10 LOCATION: Left knee. FINDINGS: Two view examination of the left knee demonstrates orthopedic hardware along the distal left femur fi xating healing fracture. Mild osteoarthritis. No new fracture. Bony mineralization is normal. CONCLUSION: 1. Healing fracture distal femur with plate and screws. 2. Mild osteoarthritis the left knee. No new fractures are seen. John Mcdonald MD on May 02, 2016 at 20:35 Board Certified Radiologist. This report was verified electronically.
[2016-05-02] MEDS: AQUAPHOR OINT 50 APPLIC/50 GM TUBE TOP SCH (21:00)
[2016-05-02 21:37] VITALS: O2SAT 92
[2016-05-02] MEDS: buPROPion HCL 75 MG TAB PO SCH (22:16)
[2016-05-03] VITALS: BP 128/88; PULSE 98; RESP 20; TEMP 98.2; O2SAT 98
[2016-05-03] MEDS: ENOXAPARIN SODIUM 60 MG/0.6 ML SYRINGE SQ SCH ×2 (03:38→16:00)
[2016-05-03] MEDS: CARISOPRODOL 350 MG TAB PO PRN ×3 (03:38→21:07)
--- NOTE | 2016-05-03 08:12 | HHI.PR ---
Objective Vital Signs Date Time Temp Pulse Resp B/P Pulse Ox O2 Delivery O2 Flow Rate FiO2 05/03/16 04:45 18 05/03/16 04:45 18 05/03/16 00:00 98.2 98 20 128/88 98 05/02/16 21:37 92 21 05/02/16 20:00 97.6 108 20 127/91 100 05/02/16 16:00 95.7 81 20 97 05/02/16 12:00 95.6 100 20 137/86 97 I/O 05/02/16 05/02/16 05/02/16 05/03/16 05/03/16 05/03/16 06:59 14:59 22:59 06:59 14:59 22:59 Intake Total 2010 ml 720 ml 480 ml Output Total 550 ml 1150 ml 950 ml Balance 1460 ml -430 ml -470 ml Intake Oral 480 ml 720 ml 480 ml IV Total 1530 ml 0 ml 0 ml Output Urine Total 550 ml 1150 ml 950 ml # Bowel Movements 1 1 Objective Remarks awke alert can cone picker knees some and move bilae ta 4- Assessment and Plan Assessment and Plan imp i dw dr qiu no sign thoracic cord compression and no c spine cord compression on ct on admit some mod stenosis high lumbar spine cpk nl await emg i conteacted rehab today about that at least an emb of bilat tib ant would be helpful psych saw on wellbutrin bilat ta weak but improved acc to dr qiu no change in last few days aggressive wt loss would help his possibilty of standing any chance of a gastric bypass? here? Gregory Tolentino MD May 03, 2016 08:12
[2016-05-03] MEDS: CALCIUM/VITAMIN D 250 MG/125 U TAB PO SCH ×2 (08:42→21:07)
[2016-05-03] MEDS: METOPROLOL TARTRATE 25 MG TAB PO SCH ×2 (08:42→21:06)
[2016-05-03] MEDS: buPROPion HCL 75 MG TAB PO SCH ×2 (08:42→21:06)
[2016-05-03] MEDS: DOCUSATE SODIUM 50 MG/SENNA 8.6 MG TAB PO SCH (08:42)
[2016-05-03] MEDS: NYSTATIN 100,000 U/GM PWD 15 GM BTL TOPICAL SCH ×2 (08:42→21:00)
[2016-05-03] MEDS: MULTIVITAMINS/IRON/MINERALS CHEWABLE TAB CHEW SCH (08:42)
[2016-05-03] MEDS: FAMOTIDINE 20 MG TAB PO SCH ×2 (08:42→21:06)
[2016-05-03] MEDS: LACTIC ACID (AMMONIUM LACTATE) 12% LOTION 225 GM BTL TOPICAL SCH ×2 (08:42→21:00)
[2016-05-03 09:14] VITALS: BP 134/81; PULSE 68; RESP 20; TEMP 95.5; O2SAT 99
[2016-05-03 12:56] VITALS: BP 145/90; PULSE 94; RESP 18; TEMP 95.6; O2SAT 98
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
[2016-05-03 16:12] VITALS: BP 136/75; PULSE 62; RESP 20; TEMP 97.7; O2SAT 98
[2016-05-03 20:00] VITALS: BP 135/80; PULSE 92; RESP 20; TEMP 98.6; O2SAT 100
[2016-05-03] MEDS: AQUAPHOR OINT 50 APPLIC/50 GM TUBE TOP SCH (21:00)
[2016-05-03] MEDS: LACTOBACILLUS ACIDOPHILUS TAB PO SCH (21:06)
[2016-05-04] VITALS: BP 128/84; PULSE 88; RESP 20; TEMP 97.2; O2SAT 96
[2016-05-04] MEDS: ENOXAPARIN SODIUM 60 MG/0.6 ML SYRINGE SQ SCH ×2 (04:28→16:00)
[2016-05-04] MEDS: CARISOPRODOL 350 MG TAB PO PRN ×3 (05:16→21:28)
[2016-05-04] MEDS: LOPERAMIDE HCL 2 MG CAP PO PRN ×3 (05:19→17:45)
[2016-05-04 05:49] LABS: AUTOMATED NEUTROPHIL # 4.6 TH/MM3 (1.8-7.7); BASOPHIL % 0.5 % (0.0-2.0); EOSINOPHIL # 0.3 TH/MM3 (0-0.4); EOSINOPHIL % 3.8 % (0.0-4.0); HEMATOCRIT 34.1 % (39.0-51.0); LYMPH % 23.8 % (9.0-44.0); LYMPHOCYTE # 1.7 TH/MM3 (1.0-4.8); MEAN CELL VOLUME 74.1 FL (80.0-100.0); MEAN CORPUSCULAR HEMOGLOBIN 24.6 PG (27.0-34.0); MEAN CORPUSCULAR HGB CONC 33.1 % (32.0-36.0); MONO % 6.4 % (0.0-8.0); NEUT % 65.5 % (16.0-70.0); PLATELET COUNT 248 TH/MM3 (150-450); RED CELL DISTRIBUTION WIDTH 18.2 % (11.6-17.2)
[2016-05-04 05:54] LABS: HEMO FLAGS AUTO DIFF
[2016-05-04 06:02] LABS: BICARBONATE 27.9 MEQ/L (21.0-32.0); POTASSIUM 3.6 MEQ/L (3.5-5.1)
[2016-05-04 06:46] LABS: OVALOCYTES 1+ (NORMAL); PLATELET ESTIMATE SMEAR NORMAL (NORMAL); PLATELET MORPHOLOGY ENLARGED (NORMAL); SCAN/DIFF AUTO DIFF CONFIRMED
[2016-05-04] MEDS: LACTOBACILLUS ACIDOPHILUS TAB PO SCH ×2 (07:55→21:28)
[2016-05-04] MEDS: MULTIVITAMINS/IRON/MINERALS CHEWABLE TAB CHEW SCH (07:56)
[2016-05-04] MEDS: buPROPion HCL 75 MG TAB PO SCH ×2 (07:56→21:27)
[2016-05-04] MEDS: CALCIUM/VITAMIN D 250 MG/125 U TAB PO SCH ×2 (07:56→21:27)
[2016-05-04] MEDS: METOPROLOL TARTRATE 25 MG TAB PO SCH ×2 (07:56→21:28)
[2016-05-04] MEDS: FAMOTIDINE 20 MG TAB PO SCH ×2 (07:56→21:28)
[2016-05-04] MEDS: NYSTATIN 100,000 U/GM PWD 15 GM BTL TOPICAL SCH ×2 (07:58→21:00)
[2016-05-04] MEDS: LACTIC ACID (AMMONIUM LACTATE) 12% LOTION 225 GM BTL TOPICAL SCH ×2 (07:58→21:00)
[2016-05-04 08:00] VITALS: BP 131/69; PULSE 80; RESP 16; TEMP 98.1; O2SAT 96
[2016-05-04 12:00] VITALS: BP 128/69; PULSE 67; RESP 14; TEMP 97.9; O2SAT 98
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
[2016-05-04 16:00] VITALS: BP 121/61; PULSE 78; RESP 16; TEMP 97.5; O2SAT 95
[2016-05-04 20:00] VITALS: BP 130/83; PULSE 93; RESP 18; TEMP 97.2; O2SAT 96
[2016-05-04] MEDS: AQUAPHOR OINT 50 APPLIC/50 GM TUBE TOP SCH (21:00)
[2016-05-05] VITALS: BP 131/70; PULSE 68; RESP 18; TEMP 97.3; O2SAT 98
[2016-05-05] MEDS: ENOXAPARIN SODIUM 60 MG/0.6 ML SYRINGE SQ SCH ×2 (05:13→16:28)
[2016-05-05 08:00] VITALS: BP 143/65; PULSE 75; RESP 16; TEMP 96.8; O2SAT 95
[2016-05-05] MEDS: LACTOBACILLUS ACIDOPHILUS TAB PO SCH ×2 (08:34→21:46)
[2016-05-05] MEDS: MULTIVITAMINS/IRON/MINERALS CHEWABLE TAB CHEW SCH (08:34)
[2016-05-05] MEDS: LACTIC ACID (AMMONIUM LACTATE) 12% LOTION 225 GM BTL TOPICAL SCH ×2 (08:35→21:47)
[2016-05-05] MEDS: CALCIUM/VITAMIN D 250 MG/125 U TAB PO SCH ×2 (08:35→21:46)
[2016-05-05] MEDS: METOPROLOL TARTRATE 25 MG TAB PO SCH ×2 (08:35→21:46)
[2016-05-05] MEDS: buPROPion HCL 75 MG TAB PO SCH ×2 (08:35→21:46)
[2016-05-05] MEDS: FAMOTIDINE 20 MG TAB PO SCH ×2 (08:35→21:46)
[2016-05-05] MEDS: NYSTATIN 100,000 U/GM PWD 15 GM BTL TOPICAL SCH ×2 (08:35→21:48)
[2016-05-05 12:00] VITALS: BP 134/70; PULSE 74; RESP 14; TEMP 96.4; O2SAT 97
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
[2016-05-05 16:00] VITALS: BP 129/68; PULSE 78; RESP 18; TEMP 97.4; O2SAT 95
[2016-05-05] MEDS: CARISOPRODOL 350 MG TAB PO PRN (18:22)
[2016-05-05] MEDS: LOPERAMIDE HCL 2 MG CAP PO PRN (18:23)
[2016-05-05 20:00] VITALS: BP 128/62; PULSE 97; RESP 18; TEMP 98.6; O2SAT 98
[2016-05-05 21:21] LABS: C. DIFF EPI 027 PRESUMPTIVE NEGATIVE (NEGATIVE)
[2016-05-05] MEDS: AQUAPHOR OINT 50 APPLIC/50 GM TUBE TOP SCH (21:47)
[2016-05-05 23:55] VITALS: BP 130/76; PULSE 100; RESP 18; TEMP 97.6; O2SAT 98
[2016-05-06] MEDS: LOPERAMIDE HCL 2 MG CAP PO PRN (00:51)
[2016-05-06] MEDS: ENOXAPARIN SODIUM 60 MG/0.6 ML SYRINGE SQ SCH ×2 (05:21→16:56)
[2016-05-06] MEDS: CARISOPRODOL 350 MG TAB PO PRN ×2 (05:21→16:56)
[2016-05-06 08:00] VITALS: BP 146/76; PULSE 72; RESP 16; TEMP 96.4; O2SAT 99
[2016-05-06] MEDS: LACTOBACILLUS ACIDOPHILUS TAB PO SCH ×2 (08:18→20:41)
[2016-05-06] MEDS: metroNIDAZOLE 500 MG TAB PO SCH ×3 (08:18→23:23)
[2016-05-06] MEDS: MULTIVITAMINS/IRON/MINERALS CHEWABLE TAB CHEW SCH (08:18)
[2016-05-06] MEDS: LACTIC ACID (AMMONIUM LACTATE) 12% LOTION 225 GM BTL TOPICAL SCH ×2 (08:19→20:42)
[2016-05-06] MEDS: CALCIUM/VITAMIN D 250 MG/125 U TAB PO SCH ×2 (08:19→20:41)
[2016-05-06] MEDS: METOPROLOL TARTRATE 25 MG TAB PO SCH ×2 (08:19→20:41)
[2016-05-06] MEDS: FAMOTIDINE 20 MG TAB PO SCH ×2 (08:19→20:41)
[2016-05-06] MEDS: buPROPion HCL 75 MG TAB PO SCH ×2 (08:19→20:41)
[2016-05-06] MEDS: NYSTATIN 100,000 U/GM PWD 15 GM BTL TOPICAL SCH ×2 (08:19→20:42)
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
[2016-05-06 12:00] VITALS: BP 124/79; PULSE 67; RESP 14; TEMP 96.9; O2SAT 97
[2016-05-06 16:00] VITALS: BP 130/84; PULSE 68; RESP 16; TEMP 96.8; O2SAT 97
[2016-05-06 20:00] VITALS: BP 124/69; PULSE 74; RESP 20; TEMP 97.2; O2SAT 100
[2016-05-06] MEDS: AQUAPHOR OINT 50 APPLIC/50 GM TUBE TOP SCH (20:42)
[2016-05-07] VITALS: BP 144/80; PULSE 76; RESP 20; TEMP 97.6; O2SAT 98
[2016-05-07] MEDS: CARISOPRODOL 350 MG TAB PO PRN ×3 (01:09→21:41)
[2016-05-07] MEDS: ENOXAPARIN SODIUM 60 MG/0.6 ML SYRINGE SQ SCH ×2 (05:56→15:21)
[2016-05-07 08:00] VITALS: BP 134/79; PULSE 77; RESP 16; TEMP 96; O2SAT 97
[2016-05-07] MEDS: NYSTATIN 100,000 U/GM PWD 15 GM BTL TOPICAL SCH ×2 (09:00→21:00)
[2016-05-07] MEDS: METOPROLOL TARTRATE 25 MG TAB PO SCH ×2 (09:04→21:41)
[2016-05-07] MEDS: ERGOCALCIFEROL (VIT D2) 50,000 UNIT CAP PO SCH (09:04)
[2016-05-07] MEDS: buPROPion HCL 75 MG TAB PO SCH ×2 (09:04→21:41)
[2016-05-07] MEDS: MULTIVITAMINS/IRON/MINERALS CHEWABLE TAB CHEW SCH (09:04)
[2016-05-07] MEDS: CALCIUM/VITAMIN D 250 MG/125 U TAB PO SCH ×2 (09:04→21:41)
[2016-05-07] MEDS: FAMOTIDINE 20 MG TAB PO SCH ×2 (09:04→21:41)
[2016-05-07] MEDS: metroNIDAZOLE 500 MG TAB PO SCH ×3 (09:04→23:39)
[2016-05-07] MEDS: LACTOBACILLUS ACIDOPHILUS TAB PO SCH ×2 (09:04→21:41)
[2016-05-07] MEDS: LACTIC ACID (AMMONIUM LACTATE) 12% LOTION 225 GM BTL TOPICAL SCH ×2 (09:05→21:00)
[2016-05-07 12:00] VITALS: BP 124/60; PULSE 74; RESP 17; TEMP 96.9; O2SAT 99
[2016-05-07 16:00] VITALS: BP 115/59; PULSE 67; RESP 13; TEMP 96.3; O2SAT 97
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
[2016-05-07 20:00] VITALS: BP 119/65; PULSE 83; RESP 20; TEMP 96.7; O2SAT 97
[2016-05-07] MEDS: AQUAPHOR OINT 50 APPLIC/50 GM TUBE TOP SCH (21:00)
[2016-05-08] VITALS: BP 123/67; PULSE 79; RESP 18; TEMP 98; O2SAT 97
[2016-05-08] MEDS: ENOXAPARIN SODIUM 60 MG/0.6 ML SYRINGE SQ SCH ×2 (04:56→15:43)
[2016-05-08 08:00] VITALS: BP 136/76; PULSE 73; RESP 18; TEMP 98.1; O2SAT 98
[2016-05-08] MEDS: MULTIVITAMINS/IRON/MINERALS CHEWABLE TAB CHEW SCH (08:16)
[2016-05-08] MEDS: LACTOBACILLUS ACIDOPHILUS TAB PO SCH ×2 (08:16→20:35)
[2016-05-08] MEDS: NYSTATIN 100,000 U/GM PWD 15 GM BTL TOPICAL SCH ×2 (08:17→20:39)
[2016-05-08] MEDS: LACTIC ACID (AMMONIUM LACTATE) 12% LOTION 225 GM BTL TOPICAL SCH ×2 (08:17→20:38)
[2016-05-08] MEDS: METOPROLOL TARTRATE 25 MG TAB PO SCH ×2 (08:17→20:35)
[2016-05-08] MEDS: FAMOTIDINE 20 MG TAB PO SCH ×2 (08:17→20:36)
[2016-05-08] MEDS: metroNIDAZOLE 500 MG TAB PO SCH ×2 (08:17→15:43)
[2016-05-08] MEDS: CALCIUM/VITAMIN D 250 MG/125 U TAB PO SCH ×2 (08:17→20:36)
[2016-05-08] MEDS: buPROPion HCL 75 MG TAB PO SCH ×2 (08:17→20:35)
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
[2016-05-08 12:17] VITALS: BP 130/57; PULSE 67; RESP 20; TEMP 95.5; O2SAT 99
[2016-05-08] MEDS: CARISOPRODOL 350 MG TAB PO PRN ×2 (12:35→20:34)
[2016-05-08 16:22] VITALS: BP 97/52; PULSE 72; RESP 20; TEMP 97.1; O2SAT 96
[2016-05-08 20:00] VITALS: BP 127/68; PULSE 70; RESP 18; TEMP 97; O2SAT 97
[2016-05-08] MEDS: AQUAPHOR OINT 50 APPLIC/50 GM TUBE TOP SCH (20:38)
[2016-05-09] VITALS: BP 118/62; PULSE 72; RESP 18; TEMP 97.5; O2SAT 98
[2016-05-09] MEDS: metroNIDAZOLE 500 MG TAB PO SCH ×3 (00:18→15:46)
[2016-05-09] MEDS: CARISOPRODOL 350 MG TAB PO PRN ×2 (04:53→19:39)
[2016-05-09] MEDS: ENOXAPARIN SODIUM 60 MG/0.6 ML SYRINGE SQ SCH ×2 (04:53→15:47)
[2016-05-09 08:00] VITALS: BP 124/96; PULSE 82; RESP 17; TEMP 98; O2SAT 96
--- NOTE | 2016-05-09 09:10 | HHI.PR ---
Subjective Remarks could not tolerate emg Objective Vital Signs Date Time Temp Pulse Resp B/P Pulse Ox O2 Delivery O2 Flow Rate FiO2 05/09/16 05:33 18 05/09/16 05:33 18 05/09/16 00:00 97.5 72 18 118/62 98 05/08/16 20:00 97.0 70 18 127/68 97 05/08/16 16:22 97.1 72 20 97/52 96 05/08/16 12:17 95.5 67 20 130/57 99 I/O 05/08/16 05/08/16 05/08/16 05/09/16 05/09/16 05/09/16 07:00 15:00 23:00 07:00 15:00 23:00 Intake Total 480 ml 960 ml 720 ml 600 ml Output Total 750 ml 1800 ml 850 ml 1300 ml Balance -270 ml -840 ml -130 ml -700 ml Intake Oral 480 ml 960 ml 720 ml 600 ml IV Total 0 ml Output Urine Total 750 ml 1800 ml 850 ml 1300 ml # Bowel Movements 0 0 0 Objective Remarks 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 here? i dw him he will consider but refused as of now no major change stands bid with bed help only i will sign off Gregory Tolentino MD May 09, 2016 09:10
[2016-05-09] MEDS: METOPROLOL TARTRATE 25 MG TAB PO SCH ×2 (09:53→19:47)
[2016-05-09] MEDS: MULTIVITAMINS/IRON/MINERALS CHEWABLE TAB CHEW SCH (09:53)
[2016-05-09] MEDS: LACTOBACILLUS ACIDOPHILUS TAB PO SCH (09:53)
[2016-05-09] MEDS: FAMOTIDINE 20 MG TAB PO SCH ×2 (09:53→19:47)
[2016-05-09] MEDS: CALCIUM/VITAMIN D 250 MG/125 U TAB PO SCH ×2 (09:53→19:47)
[2016-05-09] MEDS: buPROPion HCL 75 MG TAB PO SCH ×2 (09:53→19:47)
[2016-05-09] MEDS: NYSTATIN 100,000 U/GM PWD 15 GM BTL TOPICAL SCH ×2 (09:55→19:43)
[2016-05-09] MEDS: LACTIC ACID (AMMONIUM LACTATE) 12% LOTION 225 GM BTL TOPICAL SCH ×2 (09:55→19:42)
[2016-05-09 12:00] VITALS: BP 112/67; PULSE 63; RESP 19; TEMP 98.3; O2SAT 98
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
[2016-05-09 16:00] VITALS: BP 121/84; PULSE 78; RESP 20; TEMP 98.7; O2SAT 98
[2016-05-09] MEDS: AQUAPHOR OINT 50 APPLIC/50 GM TUBE TOP SCH (19:40)
[2016-05-09 20:00] VITALS: BP 133/87; PULSE 81; RESP 16; TEMP 97; O2SAT 99
[2016-05-10] MEDS: metroNIDAZOLE 500 MG TAB PO SCH ×3 (00:06→16:23)
[2016-05-10] MEDS: ENOXAPARIN SODIUM 60 MG/0.6 ML SYRINGE SQ SCH ×2 (03:22→16:23)
[2016-05-10] MEDS: CARISOPRODOL 350 MG TAB PO PRN ×2 (03:22→16:23)
[2016-05-10 08:00] VITALS: BP 124/65; PULSE 82; RESP 17; TEMP 98.3; O2SAT 99
[2016-05-10] MEDS: NYSTATIN 100,000 U/GM PWD 15 GM BTL TOPICAL SCH ×2 (09:00→20:56)
[2016-05-10] MEDS: FAMOTIDINE 20 MG TAB PO SCH ×2 (09:00→20:59)
[2016-05-10] MEDS: buPROPion HCL 75 MG TAB PO SCH ×2 (09:00→20:55)
[2016-05-10] MEDS: MULTIVITAMINS/IRON/MINERALS CHEWABLE TAB CHEW SCH (09:00)
[2016-05-10] MEDS: CALCIUM/VITAMIN D 250 MG/125 U TAB PO SCH ×2 (09:00→20:55)
[2016-05-10] MEDS: LACTIC ACID (AMMONIUM LACTATE) 12% LOTION 225 GM BTL TOPICAL SCH ×2 (09:00→20:56)
[2016-05-10] MEDS: LACTOBACILLUS ACIDOPHILUS TAB PO SCH (09:01)
[2016-05-10] MEDS: METOPROLOL TARTRATE 25 MG TAB PO SCH ×2 (09:01→20:55)
[2016-05-10 12:00] VITALS: BP 123/60; PULSE 72; RESP 18; TEMP 97.5; O2SAT 97
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
[2016-05-10 16:00] VITALS: BP 120/66; PULSE 78; RESP 18; TEMP 96.9; O2SAT 98
[2016-05-10 20:00] VITALS: BP 114/67; PULSE 77; RESP 20; TEMP 97.9; O2SAT 100
--- NOTE | 2016-05-10 20:05 | HHI.NSPN ---
History Chief Complaint: no verbal complaint Interval History 01/11/16 CT scan thoracic spine reveals some bony callous and osteophyte formation along the previous T8 9 fracture subluxation site with reduction of the distraction of the intervertebral disc space and foramen. 01/27/2016: Patient has been sitting on side of the bed with support during physical therapy 03/05/16: Complains of intermittent low back pain. Persistent diffuse paresthesias in the lower extremities 05/10/16: He states that he feels that his lower extremities strength and sensation is gradually improving. Mostly lower lumbosacral pain when weightbearing. No significant thoracic pain . Exam Results Vital Signs Date Time Temp Pulse Resp B/P Pulse Ox O2 Delivery O2 Flow Rate FiO2 05/10/16 17:23 20 05/10/16 16:00 96.9 78 120/66 98 Intake and Output 05/09/16 05/09/16 05/10/16 08:00 16:00 00:00 Intake Total 720 ml 480 ml 720 ml Output Total 1300 ml Balance -580 ml 480 ml 720 ml Physical Examination Patient is lying in bed in no acute distress Alert and oriented x 3. Speech is clear. Sensation intact to light touch in upper extremities. Sensation moderately diminished to light touch left foot and to a lesser extent diffuse in the left calf Upper extremity motor within normal limits Lower extremity motor: 3+/5 bilateral iliopsoas, quadriceps 3-4/5 bilateral, hamstrings 3 right, 2 left. 4 right and 3 left tibialis anterior, 3 right, 2 left gastrocsoleus No ankle clonus Right plantar response neutral Diane's response absent Lab, Micro, Other Results Knee X-Ray 05/02/16 0000 Signed Impressions: Service Date/Time: Monday, May 02, 2016 19:53 - CONCLUSION: 1. Healing fracture distal femur with plate and screws. 2. Mild osteoarthritis the left knee. No new fractures are seen. John Mcdonald MD Lower Extremity CT 03/09/16 0000 Signed Impressions: Service Date/Time: Wednesday, March 09, 2016 14:56 - CONCLUSION: 1. Stable incompletely healed comminuted fracture involving the distal femur with hardware in good position status post ORIF. 2. Several bone fragments in the region of the intracondylar notch with the largest located inferior and laterally measuring 11 mm. These fragments likely are intraarticular in location. 3. Focal lucency involving the posterior medial aspect of the tibial plateau with focal cortical thinning. Zacarias Romero MD Thoracic Spine CT 03/05/16 0000 Signed Impressions: Service Date/Time: Saturday, March 05, 2016 17:51 - CONCLUSION: Continued interval healing of the T9 compression fracture deformity. Davie Avila MD Lower Extremity Ultrasound 11/14/15 0000 Signed Impressions: Service Date/Time: Saturday, November 14, 2015 19:13 - CONCLUSION: No DVT right lower extremity. Andrei Pérez MD Lumbar Spine CT 11/10/15 0000 Signed Impressions: Service Date/Time: October 09:35 - CONCLUSION: Stable lumbar spine and alignment without evidence of acute fracture. Moderate size posterior osteophyte disc complex at T12-L1 causing moderate central spinal stenosis. Sigifredo Oviedo MD Chest X-Ray 10/17/15 0000 Signed Impressions: Service Date/Time: Saturday, October 17, 2015 08:21 - CONCLUSION: Bilateral airspace opacities persist without significant change. Andrei Pérez MD IVC Filter Placement X-Ray 10/11/15 0000 Signed Impressions: Service Date/Time: Sunday, October 11, 2015 09:30 - CONCLUSION: Uncomplicated inferior vena cava filter placement as above. Andrei Alva MD Hand X-Ray 10/08/15 0000 Signed Impressions: Service Date/Time: Thursday, October 08, 2015 05:22 - CONCLUSION: Debris within the soft tissues of the proximal fourth digit. John Mcdonald MD Medical Decision Making Impression and Plan Impression: T8-9 fracture with distraction type injury. The patient's CT scan of 03/05/16 of the thoracic spine reveals further healing along the fracture site as noted above, with no residual distraction or any subluxation noted. Patient's exam appears recently stable compared to exam of February 2016. Plan: Patient was discussed with neurology last week. Findings discussed at length with the patient today. Continue to mobilize to weightbearing as tolerated The T8 9 fracture site appears stable on most recent CT scan He may continue to get out of bed without a brace. Activity precautions and signs and symptoms to watch for again fully discussed with the patient. He is stable from a neurosurgical standpoint. No further neurosurgical intervention planned. No neurosurgical follow-up required at this time. Please reconsult if any further problems develop. Gilberto Herbert MD May 10, 2016 20:05
[2016-05-10] MEDS: AQUAPHOR OINT 50 APPLIC/50 GM TUBE TOP SCH (20:56)
[2016-05-11] MEDS: metroNIDAZOLE 500 MG TAB PO SCH ×4 (00:09→23:04)
[2016-05-11] MEDS: ENOXAPARIN SODIUM 60 MG/0.6 ML SYRINGE SQ SCH ×2 (03:56→16:40)
[2016-05-11 08:34] VITALS: BP 123/58; PULSE 77; RESP 20; TEMP 95.7; O2SAT 98
[2016-05-11] MEDS: LACTIC ACID (AMMONIUM LACTATE) 12% LOTION 225 GM BTL TOPICAL SCH ×2 (09:00→21:16)
[2016-05-11 12:00] VITALS: BP 121/69; PULSE 99; RESP 16; TEMP 96.6; O2SAT 97
[2016-05-11] MEDS: MULTIVITAMINS/IRON/MINERALS CHEWABLE TAB CHEW SCH (12:32)
[2016-05-11] MEDS: FAMOTIDINE 20 MG TAB PO SCH ×2 (12:32→21:11)
[2016-05-11] MEDS: CALCIUM/VITAMIN D 250 MG/125 U TAB PO SCH ×2 (12:33→21:11)
[2016-05-11] MEDS: LACTOBACILLUS ACIDOPHILUS TAB PO SCH (12:33)
[2016-05-11] MEDS: buPROPion HCL 75 MG TAB PO SCH ×2 (12:33→21:11)
[2016-05-11] MEDS: METOPROLOL TARTRATE 25 MG TAB PO SCH ×2 (12:33→21:10)
[2016-05-11] MEDS: NYSTATIN 100,000 U/GM PWD 15 GM BTL TOPICAL SCH ×2 (12:38→21:16)
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
[2016-05-11 16:00] VITALS: BP 118/61; PULSE 92; RESP 15; TEMP 96.6; O2SAT 100
[2016-05-11 20:00] VITALS: BP 119/63; PULSE 82; RESP 20; TEMP 98; O2SAT 100
[2016-05-11] MEDS: CARISOPRODOL 350 MG TAB PO PRN (21:11)
[2016-05-11] MEDS: AQUAPHOR OINT 50 APPLIC/50 GM TUBE TOP SCH (21:16)
[2016-05-12] MEDS: ENOXAPARIN SODIUM 60 MG/0.6 ML SYRINGE SQ SCH ×2 (05:17→18:12)
[2016-05-12] MEDS: CARISOPRODOL 350 MG TAB PO PRN ×3 (05:17→22:28)
[2016-05-12 08:00] VITALS: BP 108/60; PULSE 70; RESP 17; TEMP 97.1; O2SAT 95
[2016-05-12] MEDS: NYSTATIN 100,000 U/GM PWD 15 GM BTL TOPICAL SCH ×2 (09:00→20:35)
[2016-05-12] MEDS: LACTIC ACID (AMMONIUM LACTATE) 12% LOTION 225 GM BTL TOPICAL SCH ×2 (09:00→20:35)
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
[2016-05-12 12:00] VITALS: BP 112/68; PULSE 70; RESP 16; TEMP 98; O2SAT 97
[2016-05-12] MEDS: MULTIVITAMINS/IRON/MINERALS CHEWABLE TAB CHEW SCH (13:24)
[2016-05-12] MEDS: buPROPion HCL 75 MG TAB PO SCH ×2 (13:24→20:34)
[2016-05-12] MEDS: METOPROLOL TARTRATE 25 MG TAB PO SCH ×2 (13:24→20:34)
[2016-05-12] MEDS: FAMOTIDINE 20 MG TAB PO SCH ×2 (13:24→20:34)
[2016-05-12] MEDS: CALCIUM/VITAMIN D 250 MG/125 U TAB PO SCH ×2 (13:24→20:34)
[2016-05-12] MEDS: metroNIDAZOLE 500 MG TAB PO SCH ×3 (13:27→22:28)
[2016-05-12 16:00] VITALS: BP 129/65; PULSE 77; RESP 17; TEMP 97.3; O2SAT 98
[2016-05-12 20:00] VITALS: BP 116/67; PULSE 96; RESP 18; TEMP 96.1; O2SAT 97
[2016-05-12] MEDS: AQUAPHOR OINT 50 APPLIC/50 GM TUBE TOP SCH (20:35)
[2016-05-12 23:58] VITALS: BP 134/71; PULSE 81; RESP 18; TEMP 97; O2SAT 98
[2016-05-13] MEDS: ENOXAPARIN SODIUM 60 MG/0.6 ML SYRINGE SQ SCH ×2 (04:33→18:26)
[2016-05-13 08:00] VITALS: BP 107/68; PULSE 78; RESP 17; TEMP 97.6; O2SAT 98
[2016-05-13] MEDS: NYSTATIN 100,000 U/GM PWD 15 GM BTL TOPICAL SCH ×2 (09:00→20:49)
[2016-05-13] MEDS: LACTIC ACID (AMMONIUM LACTATE) 12% LOTION 225 GM BTL TOPICAL SCH ×2 (09:00→20:48)
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
[2016-05-13 12:00] VITALS: BP 110/66; PULSE 70; RESP 18; TEMP 97; O2SAT 97
[2016-05-13] MEDS: MULTIVITAMINS/IRON/MINERALS CHEWABLE TAB CHEW SCH (13:03)
[2016-05-13] MEDS: metroNIDAZOLE 500 MG TAB PO SCH ×3 (13:03→22:53)
[2016-05-13] MEDS: buPROPion HCL 75 MG TAB PO SCH ×2 (13:03→20:47)
[2016-05-13] MEDS: CARISOPRODOL 350 MG TAB PO PRN ×2 (13:04→20:47)
[2016-05-13] MEDS: FAMOTIDINE 20 MG TAB PO SCH ×2 (13:04→20:47)
[2016-05-13] MEDS: METOPROLOL TARTRATE 25 MG TAB PO SCH ×2 (13:04→20:47)
[2016-05-13] MEDS: CALCIUM/VITAMIN D 250 MG/125 U TAB PO SCH ×2 (13:04→20:47)
[2016-05-13 16:00] VITALS: BP 111/78; PULSE 77; RESP 17; TEMP 98; O2SAT 97
[2016-05-13 20:00] VITALS: BP 138/72; PULSE 83; RESP 20; TEMP 97.5; O2SAT 99
[2016-05-13] MEDS: AQUAPHOR OINT 50 APPLIC/50 GM TUBE TOP SCH (20:48)
[2016-05-14] VITALS: BP 140/73; PULSE 85; RESP 20; TEMP 98.4; O2SAT 98
[2016-05-14] MEDS: CARISOPRODOL 350 MG TAB PO PRN ×3 (05:23→20:51)
[2016-05-14] MEDS: ENOXAPARIN SODIUM 60 MG/0.6 ML SYRINGE SQ SCH ×2 (05:23→15:49)
[2016-05-14 08:00] VITALS: BP 115/60; PULSE 72; RESP 14; TEMP 96.2; O2SAT 96
[2016-05-14] MEDS: FAMOTIDINE 20 MG TAB PO SCH ×2 (08:30→20:52)
[2016-05-14] MEDS: MULTIVITAMINS/IRON/MINERALS CHEWABLE TAB CHEW SCH (08:30)
[2016-05-14] MEDS: LACTIC ACID (AMMONIUM LACTATE) 12% LOTION 225 GM BTL TOPICAL SCH ×2 (08:30→20:54)
[2016-05-14] MEDS: metroNIDAZOLE 500 MG TAB PO SCH ×3 (08:30→23:40)
[2016-05-14] MEDS: METOPROLOL TARTRATE 25 MG TAB PO SCH ×2 (08:30→20:52)
[2016-05-14] MEDS: CALCIUM/VITAMIN D 250 MG/125 U TAB PO SCH ×2 (08:30→20:52)
[2016-05-14] MEDS: buPROPion HCL 75 MG TAB PO SCH ×2 (08:30→20:52)
[2016-05-14] MEDS: NYSTATIN 100,000 U/GM PWD 15 GM BTL TOPICAL SCH ×2 (08:31→20:54)
[2016-05-14] MEDS: ERGOCALCIFEROL (VIT D2) 50,000 UNIT CAP PO SCH (09:13)
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
[2016-05-14] MEDS: LACTOBACILLUS ACIDOPHILUS TAB PO SCH (10:57)
[2016-05-14 12:00] VITALS: BP 122/64; PULSE 87; RESP 18; TEMP 97.2; O2SAT 97
[2016-05-14 16:00] VITALS: BP 118/63; PULSE 63; RESP 15; TEMP 95.8; O2SAT 100
[2016-05-14 20:00] VITALS: BP 138/59; PULSE 90; RESP 20; TEMP 97.6; O2SAT 99
[2016-05-14] MEDS: AQUAPHOR OINT 50 APPLIC/50 GM TUBE TOP SCH (20:53)
[2016-05-15] VITALS: BP 132/68; PULSE 88; RESP 20; TEMP 97.2; O2SAT 98
[2016-05-15] MEDS: CARISOPRODOL 350 MG TAB PO PRN ×2 (05:03→15:05)
[2016-05-15] MEDS: ENOXAPARIN SODIUM 60 MG/0.6 ML SYRINGE SQ SCH ×2 (05:03→15:06)
[2016-05-15 08:00] VITALS: BP 135/65; PULSE 83; RESP 16; TEMP 96.4; O2SAT 99
[2016-05-15] MEDS: NYSTATIN 100,000 U/GM PWD 15 GM BTL TOPICAL SCH ×2 (08:27→21:00)
[2016-05-15] MEDS: LACTOBACILLUS ACIDOPHILUS TAB PO SCH (08:27)
[2016-05-15] MEDS: buPROPion HCL 75 MG TAB PO SCH ×2 (08:27→22:02)
[2016-05-15] MEDS: CALCIUM/VITAMIN D 250 MG/125 U TAB PO SCH ×2 (08:27→22:02)
[2016-05-15] MEDS: metroNIDAZOLE 500 MG TAB PO SCH ×3 (08:27→22:03)
[2016-05-15] MEDS: FAMOTIDINE 20 MG TAB PO SCH ×2 (08:27→22:02)
[2016-05-15] MEDS: MULTIVITAMINS/IRON/MINERALS CHEWABLE TAB CHEW SCH (08:27)
[2016-05-15] MEDS: LACTIC ACID (AMMONIUM LACTATE) 12% LOTION 225 GM BTL TOPICAL SCH ×2 (08:27→21:00)
[2016-05-15] MEDS: METOPROLOL TARTRATE 25 MG TAB PO SCH ×2 (08:27→22:02)
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
[2016-05-15 12:00] VITALS: BP 120/60; PULSE 89; RESP 16; TEMP 97; O2SAT 98
[2016-05-15 16:00] VITALS: BP 114/67; PULSE 75; RESP 17; TEMP 98.3; O2SAT 99
[2016-05-15 20:00] VITALS: BP 115/65; PULSE 67; RESP 20; TEMP 98.5; O2SAT 98
[2016-05-15] MEDS: AQUAPHOR OINT 50 APPLIC/50 GM TUBE TOP SCH (21:00)
[2016-05-16] MEDS: ENOXAPARIN SODIUM 60 MG/0.6 ML SYRINGE SQ SCH ×2 (04:16→16:03)
[2016-05-16] MEDS: CARISOPRODOL 350 MG TAB PO PRN ×3 (04:16→21:53)
[2016-05-16 08:00] VITALS: BP 118/60; PULSE 70; RESP 17; TEMP 97.5; O2SAT 97
[2016-05-16] MEDS: CALCIUM/VITAMIN D 250 MG/125 U TAB PO SCH ×2 (08:19→21:53)
[2016-05-16] MEDS: METOPROLOL TARTRATE 25 MG TAB PO SCH ×2 (08:19→21:53)
[2016-05-16] MEDS: LACTOBACILLUS ACIDOPHILUS TAB PO SCH (08:19)
[2016-05-16] MEDS: buPROPion HCL 75 MG TAB PO SCH ×2 (08:19→21:53)
[2016-05-16] MEDS: NYSTATIN 100,000 U/GM PWD 15 GM BTL TOPICAL SCH ×2 (08:19→21:00)
[2016-05-16] MEDS: MULTIVITAMINS/IRON/MINERALS CHEWABLE TAB CHEW SCH (08:19)
[2016-05-16] MEDS: metroNIDAZOLE 500 MG TAB PO SCH ×3 (08:19→23:19)
[2016-05-16] MEDS: FAMOTIDINE 20 MG TAB PO SCH ×2 (08:19→21:53)
[2016-05-16] MEDS: LACTIC ACID (AMMONIUM LACTATE) 12% LOTION 225 GM BTL TOPICAL SCH ×2 (08:19→21:00)
[2016-05-16 12:00] VITALS: BP 112/64; PULSE 73; RESP 16; TEMP 97.1; O2SAT 96
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
[2016-05-16 16:00] VITALS: BP_SYST 112; BP_SYST 128; BP_DIAS 63; BP_DIAS 64; PULSE 73; RESP 16; RESP 19; TEMP 97.1; TEMP 97.5; O2SAT 96; O2SAT 98
[2016-05-16 20:00] VITALS: BP 145/69; PULSE 73; RESP 20; TEMP 98; O2SAT 100
[2016-05-16] MEDS: AQUAPHOR OINT 50 APPLIC/50 GM TUBE TOP SCH (21:00)
[2016-05-17] VITALS: BP 138/88; PULSE 90; RESP 20; TEMP 97.8; O2SAT 97
[2016-05-17] MEDS: ENOXAPARIN SODIUM 60 MG/0.6 ML SYRINGE SQ SCH ×2 (05:20→16:50)
[2016-05-17] MEDS: CARISOPRODOL 350 MG TAB PO PRN ×2 (05:22→16:50)
[2016-05-17 08:00] VITALS: BP 115/71; PULSE 77; RESP 22; TEMP 97.1; O2SAT 96
[2016-05-17] MEDS: MULTIVITAMINS/IRON/MINERALS CHEWABLE TAB CHEW SCH (09:48)
[2016-05-17] MEDS: METOPROLOL TARTRATE 25 MG TAB PO SCH ×2 (09:48→21:50)
[2016-05-17] MEDS: metroNIDAZOLE 500 MG TAB PO SCH ×3 (09:48→23:00)
[2016-05-17] MEDS: LACTOBACILLUS ACIDOPHILUS TAB PO SCH (09:48)
[2016-05-17] MEDS: FAMOTIDINE 20 MG TAB PO SCH ×2 (09:49→21:50)
[2016-05-17] MEDS: LACTIC ACID (AMMONIUM LACTATE) 12% LOTION 225 GM BTL TOPICAL SCH ×2 (09:49→21:00)
[2016-05-17] MEDS: CALCIUM/VITAMIN D 250 MG/125 U TAB PO SCH ×2 (09:49→21:50)
[2016-05-17] MEDS: buPROPion HCL 75 MG TAB PO SCH ×2 (09:49→21:50)
[2016-05-17] MEDS: NYSTATIN 100,000 U/GM PWD 15 GM BTL TOPICAL SCH ×2 (09:49→21:00)
[2016-05-17 12:00] VITALS: BP 126/81; PULSE 63; RESP 22; TEMP 97.8; O2SAT 98
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
[2016-05-17 16:00] VITALS: BP 129/71; PULSE 72; RESP 22; TEMP 97; O2SAT 96
[2016-05-17 20:17] VITALS: BP 117/74; PULSE 79; RESP 20; TEMP 97.3; O2SAT 98
[2016-05-17] MEDS: AQUAPHOR OINT 50 APPLIC/50 GM TUBE TOP SCH (21:00)
[2016-05-18 00:29] VITALS: BP 120/69; PULSE 82; RESP 20; TEMP 98.2; O2SAT 98
[2016-05-18] MEDS: ENOXAPARIN SODIUM 60 MG/0.6 ML SYRINGE SQ SCH ×2 (02:26→17:26)
[2016-05-18] MEDS: CARISOPRODOL 350 MG TAB PO PRN ×3 (02:26→21:32)
[2016-05-18] MEDS: CALCIUM/VITAMIN D 250 MG/125 U TAB PO SCH ×2 (07:44→21:30)
[2016-05-18] MEDS: METOPROLOL TARTRATE 25 MG TAB PO SCH ×2 (07:44→21:30)
[2016-05-18] MEDS: buPROPion HCL 75 MG TAB PO SCH ×2 (07:44→21:31)
[2016-05-18] MEDS: MULTIVITAMINS/IRON/MINERALS CHEWABLE TAB CHEW SCH (07:44)
[2016-05-18] MEDS: FAMOTIDINE 20 MG TAB PO SCH ×2 (07:44→21:31)
[2016-05-18] MEDS: LACTOBACILLUS ACIDOPHILUS TAB PO SCH (07:44)
[2016-05-18] MEDS: metroNIDAZOLE 500 MG TAB PO SCH ×2 (07:44→17:25)
[2016-05-18] MEDS: NYSTATIN 100,000 U/GM PWD 15 GM BTL TOPICAL SCH ×2 (07:46→21:00)
[2016-05-18] MEDS: LACTIC ACID (AMMONIUM LACTATE) 12% LOTION 225 GM BTL TOPICAL SCH ×2 (07:46→21:00)
[2016-05-18 08:00] VITALS: BP 113/71; PULSE 76; RESP 16; TEMP 97.9; O2SAT 99
[2016-05-18 12:00] VITALS: BP 131/77; PULSE 74; RESP 16; TEMP 96.1; O2SAT 98
[2016-05-18 16:00] VITALS: BP 121/60; PULSE 77; RESP 17; TEMP 97.5; O2SAT 99
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
[2016-05-18 20:35] VITALS: BP 135/65; PULSE 80; RESP 20; TEMP 96.6; O2SAT 97
[2016-05-18] MEDS: AQUAPHOR OINT 50 APPLIC/50 GM TUBE TOP SCH (21:00)
[2016-05-19 00:13] VITALS: BP 130/83; PULSE 74; RESP 20; TEMP 98.6; O2SAT 98
[2016-05-19] MEDS: metroNIDAZOLE 500 MG TAB PO SCH ×4 (04:15→23:51)
[2016-05-19] MEDS: ENOXAPARIN SODIUM 60 MG/0.6 ML SYRINGE SQ SCH ×2 (04:15→16:50)
[2016-05-19] MEDS: CARISOPRODOL 350 MG TAB PO PRN ×3 (06:28→21:51)
[2016-05-19 08:00] VITALS: BP 105/71; PULSE 71; RESP 16; TEMP 97.4; O2SAT 97
[2016-05-19] MEDS: LACTOBACILLUS ACIDOPHILUS TAB PO SCH (08:22)
[2016-05-19] MEDS: MULTIVITAMINS/IRON/MINERALS CHEWABLE TAB CHEW SCH (08:23)
[2016-05-19] MEDS: FAMOTIDINE 20 MG TAB PO SCH ×2 (08:23→21:51)
[2016-05-19] MEDS: CALCIUM/VITAMIN D 250 MG/125 U TAB PO SCH ×2 (08:23→21:50)
[2016-05-19] MEDS: METOPROLOL TARTRATE 25 MG TAB PO SCH ×2 (08:23→21:00)
[2016-05-19] MEDS: buPROPion HCL 75 MG TAB PO SCH ×2 (08:24→21:51)
[2016-05-19] MEDS: NYSTATIN 100,000 U/GM PWD 15 GM BTL TOPICAL SCH ×2 (08:24→21:00)
[2016-05-19] MEDS: LACTIC ACID (AMMONIUM LACTATE) 12% LOTION 225 GM BTL TOPICAL SCH ×2 (08:24→21:00)
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
[2016-05-19 12:00] VITALS: BP 111/72; PULSE 85; RESP 16; TEMP 96.8; O2SAT 97
[2016-05-19 16:00] VITALS: BP 122/67; PULSE 100; RESP 16; TEMP 96.6; O2SAT 97
[2016-05-19 20:00] VITALS: BP 112/56; PULSE 85; RESP 17; TEMP 96.2; O2SAT 99
[2016-05-19] MEDS: AQUAPHOR OINT 50 APPLIC/50 GM TUBE TOP SCH (21:00)
[2016-05-20] VITALS: BP 129/73; PULSE 98; RESP 18; TEMP 97; O2SAT 98
[2016-05-20] MEDS: ENOXAPARIN SODIUM 60 MG/0.6 ML SYRINGE SQ SCH ×2 (04:01→16:13)
[2016-05-20 08:00] VITALS: BP 120/73; PULSE 95; RESP 16; TEMP 97.3; O2SAT 97
[2016-05-20] MEDS: LACTIC ACID (AMMONIUM LACTATE) 12% LOTION 225 GM BTL TOPICAL SCH ×2 (09:00→20:26)
[2016-05-20] MEDS: NYSTATIN 100,000 U/GM PWD 15 GM BTL TOPICAL SCH ×2 (09:00→20:27)
[2016-05-20] MEDS: CALCIUM/VITAMIN D 250 MG/125 U TAB PO SCH ×2 (09:21→20:24)
[2016-05-20] MEDS: FAMOTIDINE 20 MG TAB PO SCH ×2 (09:21→20:23)
[2016-05-20] MEDS: buPROPion HCL 75 MG TAB PO SCH ×2 (09:22→20:23)
[2016-05-20] MEDS: MULTIVITAMINS/IRON/MINERALS CHEWABLE TAB CHEW SCH (09:22)
[2016-05-20] MEDS: METOPROLOL TARTRATE 25 MG TAB PO SCH ×2 (09:22→20:23)
[2016-05-20] MEDS: LACTOBACILLUS ACIDOPHILUS TAB PO SCH ×3 (09:22→17:19)
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
[2016-05-20 12:00] VITALS: BP 131/63; PULSE 67; RESP 16; TEMP 96.8; O2SAT 97
[2016-05-20] MEDS: CARISOPRODOL 350 MG TAB PO PRN (13:36)
[2016-05-20 16:00] VITALS: BP 121/73; PULSE 83; RESP 15; TEMP 96.7; O2SAT 96
[2016-05-20 16:25] LABS: C. DIFF EPI 027 PRESUMPTIVE NEGATIVE (NEGATIVE)
[2016-05-20 20:00] VITALS: BP 130/66; PULSE 84; RESP 18; TEMP 96.2; O2SAT 100
[2016-05-20] MEDS: AQUAPHOR OINT 50 APPLIC/50 GM TUBE TOP SCH (20:26)
[2016-05-21] VITALS: BP 121/62; PULSE 80; RESP 17; TEMP 96.7; O2SAT 100
[2016-05-21] MEDS: CARISOPRODOL 350 MG TAB PO PRN ×3 (00:05→19:54)
[2016-05-21] MEDS: ENOXAPARIN SODIUM 60 MG/0.6 ML SYRINGE SQ SCH ×2 (04:00→16:22)
[2016-05-21 08:00] VITALS: BP 119/59; PULSE 82; RESP 18; TEMP 96.9; O2SAT 97
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
[2016-05-21] MEDS: MULTIVITAMINS/IRON/MINERALS CHEWABLE TAB CHEW SCH (11:40)
[2016-05-21] MEDS: LACTOBACILLUS ACIDOPHILUS TAB PO SCH ×3 (11:41→16:22)
[2016-05-21] MEDS: ERGOCALCIFEROL (VIT D2) 50,000 UNIT CAP PO SCH (11:41)
[2016-05-21] MEDS: METOPROLOL TARTRATE 25 MG TAB PO SCH ×2 (11:41→19:55)
[2016-05-21] MEDS: buPROPion HCL 75 MG TAB PO SCH ×2 (11:41→19:54)
[2016-05-21] MEDS: FAMOTIDINE 20 MG TAB PO SCH ×2 (11:41→19:54)
[2016-05-21] MEDS: CALCIUM/VITAMIN D 250 MG/125 U TAB PO SCH ×2 (11:41→19:54)
[2016-05-21] MEDS: LACTIC ACID (AMMONIUM LACTATE) 12% LOTION 225 GM BTL TOPICAL SCH ×2 (11:42→19:56)
[2016-05-21] MEDS: NYSTATIN 100,000 U/GM PWD 15 GM BTL TOPICAL SCH ×2 (11:42→19:56)
[2016-05-21] MEDS: LOPERAMIDE HCL 2 MG CAP PO PRN ×2 (11:46→19:55)
[2016-05-21 12:00] VITALS: BP 121/77; PULSE 86; RESP 19; TEMP 97.3; O2SAT 97
[2016-05-21 16:00] VITALS: BP 109/62; PULSE 72; RESP 16; TEMP 96.9; O2SAT 99
[2016-05-21] MEDS: AQUAPHOR OINT 50 APPLIC/50 GM TUBE TOP SCH (19:56)
[2016-05-21 20:00] VITALS: BP 123/67; PULSE 82; RESP 20; TEMP 96.6; O2SAT 96
[2016-05-22] VITALS: BP 115/59; PULSE 81; RESP 20; TEMP 96.3; O2SAT 95
[2016-05-22] MEDS: CARISOPRODOL 350 MG TAB PO PRN ×2 (03:55→20:23)
[2016-05-22] MEDS: LOPERAMIDE HCL 2 MG CAP PO PRN ×2 (03:55→20:25)
[2016-05-22] MEDS: ENOXAPARIN SODIUM 60 MG/0.6 ML SYRINGE SQ SCH ×2 (03:56→15:28)
[2016-05-22 08:00] VITALS: BP 133/76; PULSE 96; RESP 17; TEMP 97.4; O2SAT 98
[2016-05-22] MEDS: NYSTATIN 100,000 U/GM PWD 15 GM BTL TOPICAL SCH ×2 (09:00→21:00)
[2016-05-22] MEDS: LACTIC ACID (AMMONIUM LACTATE) 12% LOTION 225 GM BTL TOPICAL SCH ×2 (09:00→21:00)
[2016-05-22] MEDS: LACTOBACILLUS ACIDOPHILUS TAB PO SCH ×3 (09:00→18:07)
[2016-05-22] MEDS: MULTIVITAMINS/IRON/MINERALS CHEWABLE TAB CHEW SCH (11:23)
[2016-05-22] MEDS: METOPROLOL TARTRATE 25 MG TAB PO SCH ×2 (11:24→20:25)
[2016-05-22] MEDS: FAMOTIDINE 20 MG TAB PO SCH ×2 (11:24→20:24)
[2016-05-22] MEDS: CALCIUM/VITAMIN D 250 MG/125 U TAB PO SCH ×2 (11:24→20:24)
[2016-05-22] MEDS: buPROPion HCL 75 MG TAB PO SCH ×2 (11:24→20:24)
[2016-05-22 12:00] VITALS: BP 140/68; PULSE 91; RESP 16; TEMP 96.3; O2SAT 99
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
[2016-05-22 16:00] VITALS: BP 131/73; PULSE 100; RESP 16; TEMP 96.1; O2SAT 98
[2016-05-22 20:00] VITALS: BP 123/81; PULSE 77; RESP 20; TEMP 97.9; O2SAT 100
[2016-05-22] MEDS: AQUAPHOR OINT 50 APPLIC/50 GM TUBE TOP SCH (21:00)
[2016-05-23] MEDS: ENOXAPARIN SODIUM 60 MG/0.6 ML SYRINGE SQ SCH ×2 (04:25→18:09)
[2016-05-23] MEDS: CARISOPRODOL 350 MG TAB PO PRN ×2 (04:25→20:19)
[2016-05-23] MEDS: LOPERAMIDE HCL 2 MG CAP PO PRN ×2 (04:30→20:19)
[2016-05-23 08:00] VITALS: BP 134/81; PULSE 74; RESP 16; TEMP 98.1; O2SAT 100
[2016-05-23] MEDS: NYSTATIN 100,000 U/GM PWD 15 GM BTL TOPICAL SCH ×2 (09:00→20:22)
[2016-05-23] MEDS: LACTIC ACID (AMMONIUM LACTATE) 12% LOTION 225 GM BTL TOPICAL SCH ×2 (09:00→20:22)
[2016-05-23] MEDS: METOPROLOL TARTRATE 25 MG TAB PO SCH ×2 (09:39→20:20)
[2016-05-23] MEDS: buPROPion HCL 75 MG TAB PO SCH ×2 (09:39→20:19)
[2016-05-23] MEDS: LACTOBACILLUS ACIDOPHILUS TAB PO SCH ×3 (09:39→18:08)
[2016-05-23] MEDS: FAMOTIDINE 20 MG TAB PO SCH ×2 (09:39→20:20)
[2016-05-23] MEDS: CALCIUM/VITAMIN D 250 MG/125 U TAB PO SCH ×2 (09:39→20:20)
[2016-05-23] MEDS: MULTIVITAMINS/IRON/MINERALS CHEWABLE TAB CHEW SCH (09:40)
[2016-05-23 12:00] VITALS: BP 118/77; PULSE 67; RESP 12; TEMP 98; O2SAT 97
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
[2016-05-23 20:00] VITALS: BP 128/72; PULSE 84; RESP 17; TEMP 96.8; O2SAT 98
[2016-05-23] MEDS: AQUAPHOR OINT 50 APPLIC/50 GM TUBE TOP SCH (20:21)
[2016-05-24] MEDS: CARISOPRODOL 350 MG TAB PO PRN ×2 (05:00→22:56)
[2016-05-24] MEDS: ENOXAPARIN SODIUM 60 MG/0.6 ML SYRINGE SQ SCH ×2 (05:00→15:57)
[2016-05-24] MEDS: LOPERAMIDE HCL 2 MG CAP PO PRN ×2 (05:00→22:56)
[2016-05-24 08:00] VITALS: BP 107/59; PULSE 65; RESP 18; TEMP 97.9; O2SAT 98
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
[2016-05-24] MEDS: LACTIC ACID (AMMONIUM LACTATE) 12% LOTION 225 GM BTL TOPICAL SCH ×2 (09:00→20:53)
[2016-05-24] MEDS: NYSTATIN 100,000 U/GM PWD 15 GM BTL TOPICAL SCH ×2 (09:00→20:53)
[2016-05-24] MEDS: LACTOBACILLUS ACIDOPHILUS TAB PO SCH ×3 (09:04→18:11)
[2016-05-24] MEDS: CALCIUM/VITAMIN D 250 MG/125 U TAB PO SCH ×2 (09:04→20:52)
[2016-05-24] MEDS: FAMOTIDINE 20 MG TAB PO SCH ×2 (09:04→20:52)
[2016-05-24] MEDS: METOPROLOL TARTRATE 25 MG TAB PO SCH ×2 (09:04→20:53)
[2016-05-24] MEDS: MULTIVITAMINS/IRON/MINERALS CHEWABLE TAB CHEW SCH (09:04)
[2016-05-24] MEDS: buPROPion HCL 75 MG TAB PO SCH ×2 (09:04→20:52)
[2016-05-24 12:00] VITALS: BP 128/71; PULSE 77; RESP 18; TEMP 97; O2SAT 99
[2016-05-24 16:00] VITALS: BP 111/67; PULSE 80; RESP 17; TEMP 96.9; O2SAT 97
[2016-05-24 20:00] VITALS: BP 124/61; PULSE 81; RESP 20; TEMP 97.3; O2SAT 99
[2016-05-24] MEDS: AQUAPHOR OINT 50 APPLIC/50 GM TUBE TOP SCH (20:53)
[2016-05-25] MEDS: ENOXAPARIN SODIUM 60 MG/0.6 ML SYRINGE SQ SCH ×2 (06:04→16:40)
[2016-05-25 08:00] VITALS: BP 132/69; PULSE 74; RESP 17; TEMP 97.5; O2SAT 97
[2016-05-25] MEDS: LACTOBACILLUS ACIDOPHILUS TAB PO SCH ×3 (08:28→16:40)
[2016-05-25] MEDS: LOPERAMIDE HCL 2 MG CAP PO PRN ×2 (08:28→21:30)
[2016-05-25] MEDS: buPROPion HCL 75 MG TAB PO SCH ×2 (08:28→21:28)
[2016-05-25] MEDS: FAMOTIDINE 20 MG TAB PO SCH ×2 (08:28→21:27)
[2016-05-25] MEDS: CARISOPRODOL 350 MG TAB PO PRN ×2 (08:28→21:28)
[2016-05-25] MEDS: MULTIVITAMINS/IRON/MINERALS CHEWABLE TAB CHEW SCH (08:28)
[2016-05-25] MEDS: CALCIUM/VITAMIN D 250 MG/125 U TAB PO SCH ×2 (08:28→21:29)
[2016-05-25] MEDS: METOPROLOL TARTRATE 25 MG TAB PO SCH ×2 (08:28→21:27)
[2016-05-25] MEDS: NYSTATIN 100,000 U/GM PWD 15 GM BTL TOPICAL SCH ×2 (08:29→21:00)
[2016-05-25] MEDS: LACTIC ACID (AMMONIUM LACTATE) 12% LOTION 225 GM BTL TOPICAL SCH ×2 (08:29→21:00)
[2016-05-25 12:00] VITALS: BP 117/74; PULSE 77; RESP 16; TEMP 96; O2SAT 99
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
[2016-05-25 16:00] VITALS: BP 120/77; PULSE 67; RESP 16; TEMP 98; O2SAT 98
[2016-05-25 20:00] VITALS: BP 134/72; PULSE 98; RESP 20; TEMP 97.1; O2SAT 98
[2016-05-25] MEDS: AQUAPHOR OINT 50 APPLIC/50 GM TUBE TOP SCH (21:00)
[2016-05-26] VITALS: BP 135/72; PULSE 97; RESP 20; TEMP 97.1; O2SAT 99
[2016-05-26] MEDS: ENOXAPARIN SODIUM 60 MG/0.6 ML SYRINGE SQ SCH ×2 (04:33→14:54)
[2016-05-26] MEDS: LOPERAMIDE HCL 2 MG CAP PO PRN ×2 (06:14→14:54)
[2016-05-26] MEDS: CARISOPRODOL 350 MG TAB PO PRN ×2 (06:14→14:54)
[2016-05-26 08:00] VITALS: BP 121/80; PULSE 104; RESP 21; TEMP 97.5; O2SAT 98
[2016-05-26] MEDS: LACTIC ACID (AMMONIUM LACTATE) 12% LOTION 225 GM BTL TOPICAL SCH ×2 (09:00→21:00)
[2016-05-26] MEDS: NYSTATIN 100,000 U/GM PWD 15 GM BTL TOPICAL SCH ×2 (09:00→21:00)
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
[2016-05-26] MEDS: LACTOBACILLUS ACIDOPHILUS TAB PO SCH ×3 (10:31→18:00)
[2016-05-26] MEDS: FAMOTIDINE 20 MG TAB PO SCH ×2 (10:31→22:30)
[2016-05-26] MEDS: METOPROLOL TARTRATE 25 MG TAB PO SCH ×2 (10:31→22:30)
[2016-05-26] MEDS: CALCIUM/VITAMIN D 250 MG/125 U TAB PO SCH ×2 (10:32→22:30)
[2016-05-26] MEDS: MULTIVITAMINS/IRON/MINERALS CHEWABLE TAB CHEW SCH (10:32)
[2016-05-26] MEDS: buPROPion HCL 75 MG TAB PO SCH ×2 (10:32→22:30)
[2016-05-26 12:00] VITALS: BP 127/78; PULSE 96; RESP 20; TEMP 97.9; O2SAT 99
[2016-05-26 16:00] VITALS: BP 125/70; PULSE 96; RESP 20; TEMP 98.2; O2SAT 99
[2016-05-26 20:19] VITALS: BP 127/60; PULSE 82; RESP 20; TEMP 97.6; O2SAT 98
[2016-05-26] MEDS: AQUAPHOR OINT 50 APPLIC/50 GM TUBE TOP SCH (21:00)
[2016-05-26 23:54] VITALS: BP 119/72; PULSE 82; RESP 18; TEMP 98.5; O2SAT 97
[2016-05-27] MEDS: ENOXAPARIN SODIUM 60 MG/0.6 ML SYRINGE SQ SCH ×2 (04:27→16:00)
[2016-05-27 08:00] VITALS: BP 129/78; PULSE 92; RESP 21; TEMP 98.5; O2SAT 97
[2016-05-27] MEDS: LACTIC ACID (AMMONIUM LACTATE) 12% LOTION 225 GM BTL TOPICAL SCH ×2 (09:00→20:18)
[2016-05-27] MEDS: LACTOBACILLUS ACIDOPHILUS TAB PO SCH ×3 (09:00→18:00)
[2016-05-27] MEDS: NYSTATIN 100,000 U/GM PWD 15 GM BTL TOPICAL SCH ×2 (09:00→20:18)
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
[2016-05-27 12:00] VITALS: BP 132/83; PULSE 96; RESP 21; TEMP 98; O2SAT 98
[2016-05-27] MEDS: buPROPion HCL 75 MG TAB PO SCH ×2 (13:10→20:15)
[2016-05-27] MEDS: MULTIVITAMINS/IRON/MINERALS CHEWABLE TAB CHEW SCH (13:11)
[2016-05-27] MEDS: CALCIUM/VITAMIN D 250 MG/125 U TAB PO SCH ×2 (13:11→20:15)
[2016-05-27] MEDS: METOPROLOL TARTRATE 25 MG TAB PO SCH ×2 (13:11→20:16)
[2016-05-27] MEDS: FAMOTIDINE 20 MG TAB PO SCH ×2 (13:13→20:15)
[2016-05-27 16:00] VITALS: BP 119/74; PULSE 88; RESP 20; TEMP 96.8; O2SAT 99
[2016-05-27] MEDS: AQUAPHOR OINT 50 APPLIC/50 GM TUBE TOP SCH (20:18)
[2016-05-27 20:36] VITALS: BP 136/81; PULSE 74; RESP 18; TEMP 98.7; O2SAT 97
[2016-05-28] MEDS: LOPERAMIDE HCL 2 MG CAP PO PRN ×2 (00:05→12:17)
[2016-05-28] MEDS: CARISOPRODOL 350 MG TAB PO PRN ×2 (00:05→12:17)
[2016-05-28 00:13] VITALS: BP 130/70; PULSE 69; RESP 18; TEMP 96.8; O2SAT 97
[2016-05-28] MEDS: ENOXAPARIN SODIUM 60 MG/0.6 ML SYRINGE SQ SCH ×2 (04:12→16:32)
[2016-05-28 08:00] VITALS: BP 128/78; PULSE 118; RESP 17; TEMP 96.3; O2SAT 98
[2016-05-28] MEDS: LACTIC ACID (AMMONIUM LACTATE) 12% LOTION 225 GM BTL TOPICAL SCH ×2 (09:00→20:43)
[2016-05-28] MEDS: LACTOBACILLUS ACIDOPHILUS TAB PO SCH ×3 (09:00→16:32)
[2016-05-28] MEDS: NYSTATIN 100,000 U/GM PWD 15 GM BTL TOPICAL SCH ×2 (09:00→20:44)
[2016-05-28 12:00] VITALS: BP 122/70; PULSE 104; RESP 17; TEMP 96.2; O2SAT 98
[2016-05-28] MEDS: MULTIVITAMINS/IRON/MINERALS CHEWABLE TAB CHEW SCH (12:17)
[2016-05-28] MEDS: ERGOCALCIFEROL (VIT D2) 50,000 UNIT CAP PO SCH (12:17)
[2016-05-28] MEDS: METOPROLOL TARTRATE 25 MG TAB PO SCH ×2 (12:17→20:38)
[2016-05-28] MEDS: CALCIUM/VITAMIN D 250 MG/125 U TAB PO SCH ×2 (12:17→20:38)
[2016-05-28] MEDS: buPROPion HCL 75 MG TAB PO SCH ×2 (12:17→20:38)
[2016-05-28] MEDS: FAMOTIDINE 20 MG TAB PO SCH ×2 (12:17→20:40)
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
[2016-05-28 16:00] VITALS: BP 111/78; PULSE 65; RESP 17; TEMP 96.3; O2SAT 97
[2016-05-28 20:00] VITALS: BP 126/60; PULSE 71; RESP 21; TEMP 98.1; O2SAT 99
[2016-05-28] MEDS: AQUAPHOR OINT 50 APPLIC/50 GM TUBE TOP SCH (20:43)
[2016-05-29] VITALS: BP 121/64; PULSE 64; RESP 20; TEMP 96; O2SAT 98
[2016-05-29] MEDS: LOPERAMIDE HCL 2 MG CAP PO PRN ×2 (01:49→09:46)
[2016-05-29] MEDS: CARISOPRODOL 350 MG TAB PO PRN ×2 (01:49→09:46)
[2016-05-29] MEDS: ENOXAPARIN SODIUM 60 MG/0.6 ML SYRINGE SQ SCH ×2 (04:22→15:08)
[2016-05-29 08:00] VITALS: BP 138/93; PULSE 81; RESP 19; TEMP 96.3; O2SAT 98
[2016-05-29] MEDS: LACTIC ACID (AMMONIUM LACTATE) 12% LOTION 225 GM BTL TOPICAL SCH ×2 (09:00→20:47)
[2016-05-29] MEDS: NYSTATIN 100,000 U/GM PWD 15 GM BTL TOPICAL SCH ×2 (09:00→20:47)
[2016-05-29] MEDS: buPROPion HCL 75 MG TAB PO SCH ×2 (09:46→20:47)
[2016-05-29] MEDS: METOPROLOL TARTRATE 25 MG TAB PO SCH ×2 (09:46→20:46)
[2016-05-29] MEDS: FAMOTIDINE 20 MG TAB PO SCH ×2 (09:46→20:47)
[2016-05-29] MEDS: CALCIUM/VITAMIN D 250 MG/125 U TAB PO SCH ×2 (09:46→20:47)
[2016-05-29] MEDS: MULTIVITAMINS/IRON/MINERALS CHEWABLE TAB CHEW SCH (09:46)
[2016-05-29] MEDS: LACTOBACILLUS ACIDOPHILUS TAB PO SCH ×3 (09:46→18:08)
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
[2016-05-29 12:00] VITALS: BP 140/63; PULSE 81; RESP 17; TEMP 96.4; O2SAT 98
[2016-05-29 16:00] VITALS: BP 119/73; PULSE 63; RESP 16; TEMP 96.2; O2SAT 98
[2016-05-29 20:21] VITALS: BP 134/65; PULSE 82; RESP 20; TEMP 97.9; O2SAT 98
[2016-05-29] MEDS: AQUAPHOR OINT 50 APPLIC/50 GM TUBE TOP SCH (20:47)
[2016-05-30 00:11] VITALS: BP 125/63; PULSE 79; RESP 20; TEMP 98; O2SAT 97
[2016-05-30] MEDS: CARISOPRODOL 350 MG TAB PO PRN ×3 (01:46→17:20)
[2016-05-30] MEDS: ENOXAPARIN SODIUM 60 MG/0.6 ML SYRINGE SQ SCH ×2 (03:13→17:20)
[2016-05-30 08:00] VITALS: BP 131/80; PULSE 87; RESP 17; TEMP 96.9; O2SAT 98
[2016-05-30] MEDS: MULTIVITAMINS/IRON/MINERALS CHEWABLE TAB CHEW SCH (08:31)
[2016-05-30] MEDS: LACTOBACILLUS ACIDOPHILUS TAB PO SCH ×3 (08:32→17:20)
[2016-05-30] MEDS: CALCIUM/VITAMIN D 250 MG/125 U TAB PO SCH ×2 (08:32→21:13)
[2016-05-30] MEDS: FAMOTIDINE 20 MG TAB PO SCH ×2 (08:32→21:13)
[2016-05-30] MEDS: METOPROLOL TARTRATE 25 MG TAB PO SCH ×2 (08:32→21:13)
[2016-05-30] MEDS: buPROPion HCL 75 MG TAB PO SCH ×2 (08:32→21:13)
[2016-05-30] MEDS: LACTIC ACID (AMMONIUM LACTATE) 12% LOTION 225 GM BTL TOPICAL SCH ×2 (08:34→21:00)
[2016-05-30] MEDS: NYSTATIN 100,000 U/GM PWD 15 GM BTL TOPICAL SCH ×2 (08:34→21:00)
[2016-05-30 12:00] VITALS: BP 125/77; PULSE 69; RESP 17; TEMP 96; O2SAT 96
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
[2016-05-30 16:00] VITALS: BP 132/69; PULSE 66; RESP 17; TEMP 96.7; O2SAT 97
[2016-05-30 20:00] VITALS: BP 132/80; PULSE 104; RESP 20; TEMP 96.1; O2SAT 96
[2016-05-30] MEDS: AQUAPHOR OINT 50 APPLIC/50 GM TUBE TOP SCH (21:00)
[2016-05-30 22:41] LABS: C. DIFF EPI 027 PRESUMPTIVE NEGATIVE (NEGATIVE)
[2016-05-31 00:03] VITALS: BP 118/67; PULSE 80; RESP 20; TEMP 97.4; O2SAT 97
[2016-05-31] MEDS: ENOXAPARIN SODIUM 60 MG/0.6 ML SYRINGE SQ SCH ×2 (03:52→17:56)
[2016-05-31] MEDS: CARISOPRODOL 350 MG TAB PO PRN ×2 (03:53→11:07)
[2016-05-31 08:00] VITALS: BP 142/80; PULSE 79; RESP 21; TEMP 97.7; O2SAT 98
[2016-05-31] MEDS: LACTIC ACID (AMMONIUM LACTATE) 12% LOTION 225 GM BTL TOPICAL SCH ×2 (09:00→20:09)
[2016-05-31] MEDS: NYSTATIN 100,000 U/GM PWD 15 GM BTL TOPICAL SCH ×2 (09:00→20:09)
[2016-05-31] MEDS: CALCIUM/VITAMIN D 250 MG/125 U TAB PO SCH ×2 (11:07→20:06)
[2016-05-31] MEDS: METOPROLOL TARTRATE 25 MG TAB PO SCH ×2 (11:07→20:06)
[2016-05-31] MEDS: MULTIVITAMINS/IRON/MINERALS CHEWABLE TAB CHEW SCH (11:07)
[2016-05-31] MEDS: LACTOBACILLUS ACIDOPHILUS TAB PO SCH ×3 (11:08→17:55)
[2016-05-31] MEDS: FAMOTIDINE 20 MG TAB PO SCH ×2 (11:08→20:07)
[2016-05-31] MEDS: buPROPion HCL 75 MG TAB PO SCH ×2 (11:08→20:06)
[2016-05-31 12:00] VITALS: BP 138/80; PULSE 76; RESP 19; TEMP 97.5; O2SAT 98
[2016-05-31] MEDS: metroNIDAZOLE 500 MG TAB PO SCH (17:56)
[2016-05-31 20:00] VITALS: BP 133/74; PULSE 76; RESP 20; TEMP 96.8; O2SAT 97
[2016-05-31] MEDS: AQUAPHOR OINT 50 APPLIC/50 GM TUBE TOP SCH (20:09)
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
[2016-06-01] VITALS: BP 114/69; PULSE 72; RESP 18; TEMP 96.9; O2SAT 100
[2016-06-01] MEDS: CARISOPRODOL 350 MG TAB PO PRN ×3 (01:24→20:04)
[2016-06-01] MEDS: metroNIDAZOLE 500 MG TAB PO SCH ×3 (01:24→20:03)
[2016-06-01] MEDS: ENOXAPARIN SODIUM 60 MG/0.6 ML SYRINGE SQ SCH ×2 (04:38→17:17)
[2016-06-01 08:00] VITALS: BP 142/85; PULSE 76; RESP 18; TEMP 97.2; O2SAT 97
[2016-06-01] MEDS: METOPROLOL TARTRATE 25 MG TAB PO SCH ×2 (09:00→20:06)
[2016-06-01] MEDS: LACTIC ACID (AMMONIUM LACTATE) 12% LOTION 225 GM BTL TOPICAL SCH ×2 (09:00→20:06)
[2016-06-01] MEDS: NYSTATIN 100,000 U/GM PWD 15 GM BTL TOPICAL SCH ×2 (09:00→20:06)
[2016-06-01] MEDS: MULTIVITAMINS/IRON/MINERALS CHEWABLE TAB CHEW SCH (09:02)
[2016-06-01] MEDS: CALCIUM/VITAMIN D 250 MG/125 U TAB PO SCH ×2 (09:03→20:04)
[2016-06-01] MEDS: FAMOTIDINE 20 MG TAB PO SCH ×2 (09:03→20:04)
[2016-06-01] MEDS: buPROPion HCL 75 MG TAB PO SCH ×2 (09:03→20:03)
[2016-06-01] MEDS: LACTOBACILLUS ACIDOPHILUS TAB PO SCH ×3 (09:04→18:00)
[2016-06-01 12:00] VITALS: BP 118/58; PULSE 72; RESP 12; TEMP 96.4; O2SAT 97
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
[2016-06-01 16:00] VITALS: BP 123/71; PULSE 68; RESP 17; TEMP 96.9; O2SAT 97
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
[2016-06-01 20:00] VITALS: BP 124/56; PULSE 70; RESP 18; TEMP 96.5; O2SAT 96
[2016-06-01] MEDS: AQUAPHOR OINT 50 APPLIC/50 GM TUBE TOP SCH (20:06)
[2016-06-02] VITALS: BP 117/81; PULSE 72; RESP 18; TEMP 96.6; O2SAT 98
[2016-06-02] MEDS: metroNIDAZOLE 500 MG TAB PO SCH ×4 (04:13→21:53)
[2016-06-02] MEDS: ENOXAPARIN SODIUM 60 MG/0.6 ML SYRINGE SQ SCH ×2 (04:13→16:25)
[2016-06-02] MEDS: CARISOPRODOL 350 MG TAB PO PRN ×2 (04:13→12:28)
[2016-06-02 06:07] LABS: AUTOMATED NEUTROPHIL # 3.6 TH/MM3 (1.8-7.7); BASOPHIL % 0.7 % (0.0-2.0); EOSINOPHIL # 0.2 TH/MM3 (0-0.4); EOSINOPHIL % 2.7 % (0.0-4.0); HEMATOCRIT 33.8 % (39.0-51.0); LYMPH % 24.8 % (9.0-44.0); LYMPHOCYTE # 1.4 TH/MM3 (1.0-4.8); MEAN CELL VOLUME 75.7 FL (80.0-100.0); MEAN CORPUSCULAR HEMOGLOBIN 24.3 PG (27.0-34.0); MEAN CORPUSCULAR HGB CONC 32.1 % (32.0-36.0); MONO % 6.7 % (0.0-8.0); NEUT % 65.1 % (16.0-70.0); PLATELET COUNT 199 TH/MM3 (150-450); RED BLOOD COUNT 4.47 MIL/MM3 (4.50-5.90); RED CELL DISTRIBUTION WIDTH 18.2 % (11.6-17.2); WHITE BLOOD COUNT 5.6 TH/MM3 (4.0-11.0)
[2016-06-02 06:20] LABS: HEMO FLAGS AUTO DIFF
[2016-06-02 06:30] LABS: BICARBONATE 30.6 MEQ/L (21.0-32.0); MAGNESIUM 2.4 MG/DL (1.5-2.5); POTASSIUM 3.8 MEQ/L (3.5-5.1)
[2016-06-02 08:00] VITALS: BP 124/65; PULSE 78; RESP 16; TEMP 96.1; O2SAT 97
[2016-06-02] MEDS: NYSTATIN 100,000 U/GM PWD 15 GM BTL TOPICAL SCH ×2 (09:00→21:00)
[2016-06-02] MEDS: LACTIC ACID (AMMONIUM LACTATE) 12% LOTION 225 GM BTL TOPICAL SCH ×2 (09:00→21:00)
[2016-06-02] MEDS: MULTIVITAMINS/IRON/MINERALS CHEWABLE TAB CHEW SCH (09:32)
[2016-06-02] MEDS: LACTOBACILLUS ACIDOPHILUS TAB PO SCH ×3 (09:33→16:25)
[2016-06-02] MEDS: METOPROLOL TARTRATE 25 MG TAB PO SCH ×2 (09:33→21:53)
[2016-06-02] MEDS: FAMOTIDINE 20 MG TAB PO SCH ×2 (09:33→21:53)
[2016-06-02] MEDS: buPROPion HCL 75 MG TAB PO SCH ×2 (09:33→21:53)
[2016-06-02] MEDS: CALCIUM/VITAMIN D 250 MG/125 U TAB PO SCH ×2 (09:33→21:53)
[2016-06-02 10:53] LABS: OVALOCYTES 1+ (NORMAL); SCAN/DIFF AUTO DIFF CONFIRMED
[2016-06-02 12:00] VITALS: BP 130/79; PULSE 94; RESP 17; TEMP 95.7; O2SAT 97
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
[2016-06-02 16:00] VITALS: BP 133/90; PULSE 77; RESP 18; TEMP 96.2; O2SAT 97
[2016-06-02 20:00] VITALS: BP 126/77; PULSE 78; RESP 17; TEMP 96.5; O2SAT 98
[2016-06-02] MEDS: AQUAPHOR OINT 50 APPLIC/50 GM TUBE TOP SCH (21:00)
[2016-06-03] MEDS: metroNIDAZOLE 500 MG TAB PO SCH ×4 (04:48→19:51)
[2016-06-03] MEDS: ENOXAPARIN SODIUM 60 MG/0.6 ML SYRINGE SQ SCH ×2 (04:48→15:33)
[2016-06-03] MEDS: CARISOPRODOL 350 MG TAB PO PRN ×2 (04:49→13:14)
[2016-06-03] MEDS: NYSTATIN 100,000 U/GM PWD 15 GM BTL TOPICAL SCH ×2 (09:00→19:52)
[2016-06-03] MEDS: LACTIC ACID (AMMONIUM LACTATE) 12% LOTION 225 GM BTL TOPICAL SCH ×2 (09:00→19:52)
[2016-06-03] MEDS: METOPROLOL TARTRATE 25 MG TAB PO SCH ×2 (09:58→19:51)
[2016-06-03] MEDS: CALCIUM/VITAMIN D 250 MG/125 U TAB PO SCH ×2 (09:58→19:52)
[2016-06-03] MEDS: FAMOTIDINE 20 MG TAB PO SCH ×2 (09:58→19:51)
[2016-06-03] MEDS: LACTOBACILLUS ACIDOPHILUS TAB PO SCH ×3 (09:58→17:35)
[2016-06-03] MEDS: buPROPion HCL 75 MG TAB PO SCH ×2 (09:58→19:51)
[2016-06-03] MEDS: MULTIVITAMINS/IRON/MINERALS CHEWABLE TAB CHEW SCH (09:58)
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
[2016-06-03 12:00] VITALS: BP 120/73; PULSE 64; RESP 16; TEMP 98.5; O2SAT 98
[2016-06-03 16:00] VITALS: BP 134/86; PULSE 82; RESP 16; TEMP 97.1; O2SAT 98
[2016-06-03 20:00] VITALS: BP 128/74; PULSE 75; RESP 17; TEMP 96; O2SAT 98
[2016-06-03] MEDS: AQUAPHOR OINT 50 APPLIC/50 GM TUBE TOP SCH (20:11)
[2016-06-04] MEDS: metroNIDAZOLE 500 MG TAB PO SCH ×4 (04:41→21:07)
[2016-06-04] MEDS: ENOXAPARIN SODIUM 60 MG/0.6 ML SYRINGE SQ SCH ×2 (04:41→17:38)
[2016-06-04] MEDS: buPROPion HCL 75 MG TAB PO SCH ×2 (07:43→21:07)
[2016-06-04] MEDS: ERGOCALCIFEROL (VIT D2) 50,000 UNIT CAP PO SCH (07:43)
[2016-06-04] MEDS: CARISOPRODOL 350 MG TAB PO PRN ×2 (07:43→21:07)
[2016-06-04] MEDS: FAMOTIDINE 20 MG TAB PO SCH ×2 (07:43→21:07)
[2016-06-04] MEDS: MULTIVITAMINS/IRON/MINERALS CHEWABLE TAB CHEW SCH (07:43)
[2016-06-04] MEDS: LACTOBACILLUS ACIDOPHILUS TAB PO SCH ×3 (07:44→17:37)
[2016-06-04] MEDS: METOPROLOL TARTRATE 25 MG TAB PO SCH ×2 (07:44→21:08)
[2016-06-04] MEDS: CALCIUM/VITAMIN D 250 MG/125 U TAB PO SCH ×2 (07:44→21:07)
[2016-06-04] MEDS: NYSTATIN 100,000 U/GM PWD 15 GM BTL TOPICAL SCH ×2 (07:46→21:00)
[2016-06-04] MEDS: LACTIC ACID (AMMONIUM LACTATE) 12% LOTION 225 GM BTL TOPICAL SCH ×2 (07:46→21:00)
[2016-06-04 08:00] VITALS: BP 135/84; PULSE 80; RESP 16; TEMP 98.1; O2SAT 98
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
[2016-06-04 20:00] VITALS: BP 120/69; PULSE 66; RESP 17; TEMP 96; O2SAT 98
[2016-06-04] MEDS: AQUAPHOR OINT 50 APPLIC/50 GM TUBE TOP SCH (21:00)
[2016-06-05] MEDS: CARISOPRODOL 350 MG TAB PO PRN ×2 (04:32→13:57)
[2016-06-05] MEDS: metroNIDAZOLE 500 MG TAB PO SCH ×4 (04:32→21:28)
[2016-06-05] MEDS: ENOXAPARIN SODIUM 60 MG/0.6 ML SYRINGE SQ SCH ×2 (04:32→18:38)
[2016-06-05] MEDS: NYSTATIN 100,000 U/GM PWD 15 GM BTL TOPICAL SCH ×2 (09:00→21:00)
[2016-06-05] MEDS: LACTIC ACID (AMMONIUM LACTATE) 12% LOTION 225 GM BTL TOPICAL SCH ×2 (09:00→21:00)
[2016-06-05] MEDS: buPROPion HCL 75 MG TAB PO SCH ×2 (09:09→21:28)
[2016-06-05] MEDS: MULTIVITAMINS/IRON/MINERALS CHEWABLE TAB CHEW SCH (09:10)
[2016-06-05] MEDS: LACTOBACILLUS ACIDOPHILUS TAB PO SCH ×3 (09:10→18:38)
[2016-06-05] MEDS: CALCIUM/VITAMIN D 250 MG/125 U TAB PO SCH ×2 (09:10→21:28)
[2016-06-05] MEDS: METOPROLOL TARTRATE 25 MG TAB PO SCH ×2 (09:10→21:28)
[2016-06-05] MEDS: FAMOTIDINE 20 MG TAB PO SCH ×2 (09:10→21:28)
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
[2016-06-05 12:00] VITALS: BP 125/63; PULSE 69; RESP 17; TEMP 96.5; O2SAT 95
[2016-06-05 16:00] VITALS: BP 123/64; PULSE 70; RESP 16; TEMP 97.1; O2SAT 97
[2016-06-05 20:00] VITALS: BP 112/65; PULSE 75; RESP 17; TEMP 97.2; O2SAT 98
[2016-06-05] MEDS: AQUAPHOR OINT 50 APPLIC/50 GM TUBE TOP SCH (21:00)
[2016-06-06] MEDS: metroNIDAZOLE 500 MG TAB PO SCH ×4 (04:19→23:16)
[2016-06-06] MEDS: CARISOPRODOL 350 MG TAB PO PRN ×2 (04:19→13:51)
[2016-06-06] MEDS: ENOXAPARIN SODIUM 60 MG/0.6 ML SYRINGE SQ SCH ×2 (04:19→17:43)
[2016-06-06 08:00] VITALS: BP 126/69; PULSE 93; RESP 17; TEMP 97.1; O2SAT 98
[2016-06-06] MEDS: NYSTATIN 100,000 U/GM PWD 15 GM BTL TOPICAL SCH ×2 (09:00→21:00)
[2016-06-06] MEDS: LACTIC ACID (AMMONIUM LACTATE) 12% LOTION 225 GM BTL TOPICAL SCH ×2 (09:00→21:00)
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
[2016-06-06] MEDS: CALCIUM/VITAMIN D 250 MG/125 U TAB PO SCH ×2 (10:50→23:16)
[2016-06-06] MEDS: FAMOTIDINE 20 MG TAB PO SCH ×2 (10:50→23:16)
[2016-06-06] MEDS: MULTIVITAMINS/IRON/MINERALS CHEWABLE TAB CHEW SCH (10:50)
[2016-06-06] MEDS: buPROPion HCL 75 MG TAB PO SCH ×2 (10:50→23:16)
[2016-06-06] MEDS: METOPROLOL TARTRATE 25 MG TAB PO SCH ×2 (10:51→23:17)
[2016-06-06] MEDS: LACTOBACILLUS ACIDOPHILUS TAB PO SCH ×3 (10:57→17:43)
[2016-06-06 12:00] VITALS: BP 115/64; PULSE 85; RESP 16; TEMP 96; O2SAT 99
[2016-06-06 20:00] VITALS: BP 120/65; PULSE 73; RESP 21; TEMP 96.5; O2SAT 99
[2016-06-06] MEDS: AQUAPHOR OINT 50 APPLIC/50 GM TUBE TOP SCH (21:00)
[2016-06-07 00:16] VITALS: BP 134/79; PULSE 94; RESP 20; TEMP 96; O2SAT 100
[2016-06-07] MEDS: ENOXAPARIN SODIUM 60 MG/0.6 ML SYRINGE SQ SCH ×2 (05:02→16:20)
[2016-06-07] MEDS: metroNIDAZOLE 500 MG TAB PO SCH ×4 (05:02→20:46)
[2016-06-07 08:00] VITALS: BP 125/73; PULSE 77; RESP 20; TEMP 97.5; O2SAT 99
[2016-06-07] MEDS: LACTIC ACID (AMMONIUM LACTATE) 12% LOTION 225 GM BTL TOPICAL SCH ×2 (09:00→20:47)
[2016-06-07] MEDS: NYSTATIN 100,000 U/GM PWD 15 GM BTL TOPICAL SCH ×2 (09:00→20:47)
[2016-06-07] MEDS: buPROPion HCL 75 MG TAB PO SCH ×2 (09:05→20:46)
[2016-06-07] MEDS: CALCIUM/VITAMIN D 250 MG/125 U TAB PO SCH ×2 (09:06→20:46)
[2016-06-07] MEDS: LACTOBACILLUS ACIDOPHILUS TAB PO SCH ×3 (09:06→16:20)
[2016-06-07] MEDS: METOPROLOL TARTRATE 25 MG TAB PO SCH ×2 (09:06→20:46)
[2016-06-07] MEDS: MULTIVITAMINS/IRON/MINERALS CHEWABLE TAB CHEW SCH (09:06)
[2016-06-07] MEDS: FAMOTIDINE 20 MG TAB PO SCH ×2 (09:06→20:46)
[2016-06-07] MEDS: CARISOPRODOL 350 MG TAB PO PRN ×2 (09:09→17:25)
[2016-06-07 12:01] VITALS: BP 141/61; PULSE 69; RESP 20; TEMP 98.4; O2SAT 95
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
[2016-06-07 16:00] VITALS: BP 129/76; PULSE 80; RESP 18; TEMP 98; O2SAT 97
[2016-06-07 20:00] VITALS: BP 136/83; PULSE 78; RESP 20; TEMP 97.6; O2SAT 95
[2016-06-07] MEDS: AQUAPHOR OINT 50 APPLIC/50 GM TUBE TOP SCH (20:47)
[2016-06-08] VITALS: BP 128/80; PULSE 69; RESP 20; TEMP 97; O2SAT 94
[2016-06-08] MEDS: ENOXAPARIN SODIUM 60 MG/0.6 ML SYRINGE SQ SCH ×2 (03:25→15:32)
[2016-06-08] MEDS: metroNIDAZOLE 500 MG TAB PO SCH ×4 (03:25→21:47)
[2016-06-08 08:00] VITALS: BP 117/63; PULSE 70; RESP 16; TEMP 96.1; O2SAT 99
[2016-06-08] MEDS: LACTIC ACID (AMMONIUM LACTATE) 12% LOTION 225 GM BTL TOPICAL SCH ×2 (09:00→21:00)
[2016-06-08] MEDS: NYSTATIN 100,000 U/GM PWD 15 GM BTL TOPICAL SCH ×2 (09:00→21:00)
[2016-06-08] MEDS: CARISOPRODOL 350 MG TAB PO PRN (10:02)
[2016-06-08] MEDS: buPROPion HCL 75 MG TAB PO SCH ×2 (10:03→21:47)
[2016-06-08] MEDS: CALCIUM/VITAMIN D 250 MG/125 U TAB PO SCH ×2 (10:03→21:47)
[2016-06-08] MEDS: FAMOTIDINE 20 MG TAB PO SCH ×2 (10:03→21:47)
[2016-06-08] MEDS: METOPROLOL TARTRATE 25 MG TAB PO SCH ×2 (10:03→21:47)
[2016-06-08] MEDS: MULTIVITAMINS/IRON/MINERALS CHEWABLE TAB CHEW SCH (10:04)
[2016-06-08] MEDS: LACTOBACILLUS ACIDOPHILUS TAB PO SCH ×3 (10:04→18:00)
[2016-06-08 12:00] VITALS: BP 133/73; PULSE 69; RESP 12; TEMP 96.4; O2SAT 96
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
[2016-06-08 16:00] VITALS: BP 121/59; PULSE 80; RESP 15; TEMP 96.6; O2SAT 97
[2016-06-08 20:30] VITALS: BP 126/61; PULSE 70; RESP 18; TEMP 98.4; O2SAT 98
[2016-06-08] MEDS: AQUAPHOR OINT 50 APPLIC/50 GM TUBE TOP SCH (21:00)
[2016-06-09 00:05] VITALS: BP 126/78; PULSE 72; RESP 18; TEMP 98.9; O2SAT 98
[2016-06-09] MEDS: metroNIDAZOLE 500 MG TAB PO SCH ×4 (04:33→22:05)
[2016-06-09] MEDS: ENOXAPARIN SODIUM 60 MG/0.6 ML SYRINGE SQ SCH ×2 (04:33→15:10)
[2016-06-09 08:00] VITALS: BP 120/75; PULSE 69; RESP 18; TEMP 97.7; O2SAT 98
[2016-06-09] MEDS: NYSTATIN 100,000 U/GM PWD 15 GM BTL TOPICAL SCH ×2 (09:00→21:00)
[2016-06-09] MEDS: LACTIC ACID (AMMONIUM LACTATE) 12% LOTION 225 GM BTL TOPICAL SCH ×2 (09:00→21:00)
[2016-06-09] MEDS: CARISOPRODOL 350 MG TAB PO PRN ×2 (10:05→18:16)
[2016-06-09] MEDS: buPROPion HCL 75 MG TAB PO SCH ×2 (10:06→22:06)
[2016-06-09] MEDS: CALCIUM/VITAMIN D 250 MG/125 U TAB PO SCH ×2 (10:06→22:05)
[2016-06-09] MEDS: LACTOBACILLUS ACIDOPHILUS TAB PO SCH ×3 (10:06→17:39)
[2016-06-09] MEDS: MULTIVITAMINS/IRON/MINERALS CHEWABLE TAB CHEW SCH (10:06)
[2016-06-09] MEDS: FAMOTIDINE 20 MG TAB PO SCH ×2 (10:06→22:06)
[2016-06-09] MEDS: METOPROLOL TARTRATE 25 MG TAB PO SCH ×2 (10:06→22:05)
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
[2016-06-09 12:00] VITALS: BP 122/77; PULSE 73; RESP 17; TEMP 97.1; O2SAT 97
[2016-06-09 16:00] VITALS: BP 118/68; PULSE 76; RESP 16; TEMP 98; O2SAT 97
[2016-06-09 20:00] VITALS: BP 123/63; PULSE 75; RESP 20; TEMP 97.1; O2SAT 98
[2016-06-09] MEDS: AQUAPHOR OINT 50 APPLIC/50 GM TUBE TOP SCH (21:00)
[2016-06-10 00:30] VITALS: BP 114/61; PULSE 79; RESP 18; TEMP 97.5; O2SAT 97
[2016-06-10] MEDS: metroNIDAZOLE 500 MG TAB PO SCH ×4 (03:24→23:13)
[2016-06-10] MEDS: ENOXAPARIN SODIUM 60 MG/0.6 ML SYRINGE SQ SCH ×2 (03:24→17:54)
[2016-06-10] MEDS: CARISOPRODOL 350 MG TAB PO PRN ×2 (05:01→14:50)
[2016-06-10] MEDS: MULTIVITAMINS/IRON/MINERALS CHEWABLE TAB CHEW SCH (07:45)
[2016-06-10] MEDS: FAMOTIDINE 20 MG TAB PO SCH ×2 (07:46→23:13)
[2016-06-10] MEDS: buPROPion HCL 75 MG TAB PO SCH ×2 (07:46→23:13)
[2016-06-10] MEDS: CALCIUM/VITAMIN D 250 MG/125 U TAB PO SCH ×2 (07:46→23:14)
[2016-06-10] MEDS: LACTOBACILLUS ACIDOPHILUS TAB PO SCH ×3 (07:46→17:53)
[2016-06-10] MEDS: METOPROLOL TARTRATE 25 MG TAB PO SCH ×2 (07:46→23:13)
[2016-06-10 08:00] VITALS: BP 123/61; PULSE 68; RESP 16; TEMP 96.9; O2SAT 98
[2016-06-10] MEDS: NYSTATIN 100,000 U/GM PWD 15 GM BTL TOPICAL SCH ×2 (09:00→21:00)
[2016-06-10] MEDS: LACTIC ACID (AMMONIUM LACTATE) 12% LOTION 225 GM BTL TOPICAL SCH ×2 (09:00→21:00)
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
[2016-06-10 12:00] VITALS: BP 120/64; PULSE 70; RESP 16; TEMP 97; O2SAT 99
[2016-06-10 16:00] VITALS: BP 112/63; PULSE 67; RESP 17; TEMP 96.9; O2SAT 97
[2016-06-10 20:00] VITALS: BP 125/60; PULSE 72; RESP 18; TEMP 97; O2SAT 98
[2016-06-10] MEDS: AQUAPHOR OINT 50 APPLIC/50 GM TUBE TOP SCH (23:15)
[2016-06-11 00:56] VITALS: BP 118/71; PULSE 70; RESP 18; TEMP 97.4; O2SAT 98
[2016-06-11] MEDS: ENOXAPARIN SODIUM 60 MG/0.6 ML SYRINGE SQ SCH ×2 (04:25→15:09)
[2016-06-11] MEDS: metroNIDAZOLE 500 MG TAB PO SCH ×4 (04:25→20:54)
[2016-06-11] MEDS: CARISOPRODOL 350 MG TAB PO PRN ×2 (06:58→15:09)
[2016-06-11 08:00] VITALS: BP 121/59; PULSE 78; RESP 18; TEMP 97.6; O2SAT 99
[2016-06-11] MEDS: LACTOBACILLUS ACIDOPHILUS TAB PO SCH ×3 (08:57→17:22)
[2016-06-11] MEDS: ERGOCALCIFEROL (VIT D2) 50,000 UNIT CAP PO SCH (08:57)
[2016-06-11] MEDS: buPROPion HCL 75 MG TAB PO SCH ×2 (08:57→20:54)
[2016-06-11] MEDS: CALCIUM/VITAMIN D 250 MG/125 U TAB PO SCH ×2 (08:57→20:54)
[2016-06-11] MEDS: METOPROLOL TARTRATE 25 MG TAB PO SCH ×2 (08:57→20:54)
[2016-06-11] MEDS: FAMOTIDINE 20 MG TAB PO SCH ×2 (08:57→20:54)
[2016-06-11] MEDS: LACTIC ACID (AMMONIUM LACTATE) 12% LOTION 225 GM BTL TOPICAL SCH ×3 (08:58→20:56)
[2016-06-11] MEDS: NYSTATIN 100,000 U/GM PWD 15 GM BTL TOPICAL SCH ×2 (08:58→20:56)
[2016-06-11] MEDS: MULTIVITAMINS/IRON/MINERALS CHEWABLE TAB CHEW SCH (08:58)
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
[2016-06-11 12:00] VITALS: BP 115/65; PULSE 80; RESP 18; TEMP 97.5; O2SAT 99
[2016-06-11 16:00] VITALS: BP 127/63; PULSE 77; RESP 18; TEMP 96.6; O2SAT 98
[2016-06-11 20:00] VITALS: BP 129/63; PULSE 77; RESP 19; TEMP 96.1; O2SAT 98
[2016-06-11] MEDS: AQUAPHOR OINT 50 APPLIC/50 GM TUBE TOP SCH (20:56)
[2016-06-12] MEDS: ENOXAPARIN SODIUM 60 MG/0.6 ML SYRINGE SQ SCH ×2 (03:06→15:06)
[2016-06-12] MEDS: metroNIDAZOLE 500 MG TAB PO SCH ×4 (03:06→21:39)
[2016-06-12 08:00] VITALS: BP 124/62; PULSE 73; RESP 16; TEMP 96.2; O2SAT 100
[2016-06-12] MEDS: NYSTATIN 100,000 U/GM PWD 15 GM BTL TOPICAL SCH ×2 (09:00→21:00)
[2016-06-12] MEDS: LACTIC ACID (AMMONIUM LACTATE) 12% LOTION 225 GM BTL TOPICAL SCH ×2 (09:00→21:00)
[2016-06-12] MEDS: LACTOBACILLUS ACIDOPHILUS TAB PO SCH ×3 (09:35→17:50)
[2016-06-12] MEDS: FAMOTIDINE 20 MG TAB PO SCH ×2 (09:35→21:40)
[2016-06-12] MEDS: buPROPion HCL 75 MG TAB PO SCH ×2 (09:35→21:39)
[2016-06-12] MEDS: MULTIVITAMINS/IRON/MINERALS CHEWABLE TAB CHEW SCH (09:35)
[2016-06-12] MEDS: METOPROLOL TARTRATE 25 MG TAB PO SCH ×2 (09:36→21:40)
[2016-06-12] MEDS: CALCIUM/VITAMIN D 250 MG/125 U TAB PO SCH ×2 (09:36→21:39)
[2016-06-12 12:00] VITALS: BP 136/71; PULSE 67; RESP 19; TEMP 96; O2SAT 100
[2016-06-12] MEDS: CARISOPRODOL 350 MG TAB PO PRN ×2 (12:39→21:39)
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
[2016-06-12 16:00] VITALS: BP 123/63; PULSE 82; RESP 19; TEMP 96; O2SAT 99
[2016-06-12 20:00] VITALS: BP 134/63; PULSE 88; RESP 18; TEMP 97.3; O2SAT 97
[2016-06-12] MEDS: AQUAPHOR OINT 50 APPLIC/50 GM TUBE TOP SCH (21:00)
[2016-06-13] MEDS: metroNIDAZOLE 500 MG TAB PO SCH ×4 (02:41→19:53)
[2016-06-13] MEDS: ENOXAPARIN SODIUM 60 MG/0.6 ML SYRINGE SQ SCH ×2 (02:42→16:00)
[2016-06-13 08:00] VITALS: BP 126/77; PULSE 90; RESP 19; TEMP 96.8; O2SAT 99
[2016-06-13] MEDS: NYSTATIN 100,000 U/GM PWD 15 GM BTL TOPICAL SCH ×2 (09:00→19:53)
[2016-06-13] MEDS: LACTIC ACID (AMMONIUM LACTATE) 12% LOTION 225 GM BTL TOPICAL SCH ×2 (09:00→19:53)
[2016-06-13] MEDS: MULTIVITAMINS/IRON/MINERALS CHEWABLE TAB CHEW SCH (09:29)
[2016-06-13] MEDS: CALCIUM/VITAMIN D 250 MG/125 U TAB PO SCH ×2 (09:29→19:54)
[2016-06-13] MEDS: LACTOBACILLUS ACIDOPHILUS TAB PO SCH ×3 (09:29→17:34)
[2016-06-13] MEDS: buPROPion HCL 75 MG TAB PO SCH ×2 (09:29→19:53)
[2016-06-13] MEDS: METOPROLOL TARTRATE 25 MG TAB PO SCH ×2 (09:29→19:53)
[2016-06-13] MEDS: FAMOTIDINE 20 MG TAB PO SCH ×2 (09:29→19:54)
[2016-06-13 16:00] VITALS: BP 139/81; PULSE 77; RESP 18; TEMP 96.4; O2SAT 97
[2016-06-13] MEDS: AQUAPHOR OINT 50 APPLIC/50 GM TUBE TOP SCH (19:53)
[2016-06-13 20:28] VITALS: BP 139/78; PULSE 72; RESP 18; TEMP 96.7; O2SAT 98
[2016-06-13 23:53] VITALS: BP 131/73; PULSE 82; RESP 18; TEMP 96.1; O2SAT 97
[2016-06-14] MEDS: ENOXAPARIN SODIUM 60 MG/0.6 ML SYRINGE SQ SCH ×2 (03:13→18:02)
[2016-06-14 08:00] VITALS: BP 133/73; PULSE 85; RESP 19; TEMP 97.7; O2SAT 97
[2016-06-14] MEDS: LACTIC ACID (AMMONIUM LACTATE) 12% LOTION 225 GM BTL TOPICAL SCH ×2 (09:00→20:17)
[2016-06-14] MEDS: NYSTATIN 100,000 U/GM PWD 15 GM BTL TOPICAL SCH ×2 (09:00→20:17)
[2016-06-14] MEDS: MULTIVITAMINS/IRON/MINERALS CHEWABLE TAB CHEW SCH (10:54)
[2016-06-14] MEDS: CALCIUM/VITAMIN D 250 MG/125 U TAB PO SCH ×2 (10:54→20:16)
[2016-06-14] MEDS: METOPROLOL TARTRATE 25 MG TAB PO SCH ×2 (10:54→20:16)
[2016-06-14] MEDS: LACTOBACILLUS ACIDOPHILUS TAB PO SCH ×3 (10:55→18:01)
[2016-06-14] MEDS: FAMOTIDINE 20 MG TAB PO SCH ×2 (10:55→20:16)
[2016-06-14] MEDS: buPROPion HCL 75 MG TAB PO SCH ×2 (10:55→20:16)
[2016-06-14] MEDS: CARISOPRODOL 350 MG TAB PO PRN (10:55)
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
[2016-06-14] MEDS: AQUAPHOR OINT 50 APPLIC/50 GM TUBE TOP SCH (20:17)
[2016-06-15] VITALS: BP 119/71; PULSE 70; RESP 22; TEMP 97; O2SAT 99
[2016-06-15] MEDS: ENOXAPARIN SODIUM 60 MG/0.6 ML SYRINGE SQ SCH ×2 (04:00→14:46)
[2016-06-15 08:00] VITALS: BP 128/73; PULSE 77; RESP 15; TEMP 96.5; O2SAT 97
[2016-06-15] MEDS: LACTIC ACID (AMMONIUM LACTATE) 12% LOTION 225 GM BTL TOPICAL SCH ×2 (09:00→21:00)
[2016-06-15] MEDS: NYSTATIN 100,000 U/GM PWD 15 GM BTL TOPICAL SCH ×2 (09:00→21:00)
[2016-06-15] MEDS: CARISOPRODOL 350 MG TAB PO PRN (09:01)
[2016-06-15] MEDS: FAMOTIDINE 20 MG TAB PO SCH ×2 (09:02→21:10)
[2016-06-15] MEDS: MULTIVITAMINS/IRON/MINERALS CHEWABLE TAB CHEW SCH (09:02)
[2016-06-15] MEDS: LACTOBACILLUS ACIDOPHILUS TAB PO SCH ×3 (09:02→18:05)
[2016-06-15] MEDS: CALCIUM/VITAMIN D 250 MG/125 U TAB PO SCH ×2 (09:02→21:09)
[2016-06-15] MEDS: METOPROLOL TARTRATE 25 MG TAB PO SCH ×2 (09:02→21:09)
[2016-06-15] MEDS: buPROPion HCL 75 MG TAB PO SCH ×2 (09:02→21:10)
[2016-06-15 12:00] VITALS: BP 112/59; PULSE 65; RESP 13; TEMP 97; O2SAT 98
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
[2016-06-15 16:00] VITALS: BP 126/64; PULSE 74; RESP 17; TEMP 97.5; O2SAT 96
[2016-06-15 20:00] VITALS: BP 126/76; PULSE 74; RESP 20; TEMP 97.4; O2SAT 98
[2016-06-15] MEDS: AQUAPHOR OINT 50 APPLIC/50 GM TUBE TOP SCH (21:00)
[2016-06-16] VITALS: BP 124/63; PULSE 79; RESP 20; TEMP 97.3; O2SAT 97
[2016-06-16] MEDS: CHOLESTYRAMINE 4 GM PACKET PO PRN ×2 (00:08→14:47)
[2016-06-16] MEDS: CARISOPRODOL 350 MG TAB PO PRN ×2 (00:12→14:47)
[2016-06-16] MEDS: ENOXAPARIN SODIUM 60 MG/0.6 ML SYRINGE SQ SCH ×2 (04:08→15:58)
[2016-06-16 08:00] VITALS: BP 122/76; PULSE 88; RESP 19; TEMP 97.8; O2SAT 100
[2016-06-16] MEDS: LACTIC ACID (AMMONIUM LACTATE) 12% LOTION 225 GM BTL TOPICAL SCH ×2 (09:00→21:36)
[2016-06-16] MEDS: MULTIVITAMINS/IRON/MINERALS CHEWABLE TAB CHEW SCH (09:14)
[2016-06-16] MEDS: buPROPion HCL 75 MG TAB PO SCH ×2 (09:14→21:35)
[2016-06-16] MEDS: CALCIUM/VITAMIN D 250 MG/125 U TAB PO SCH ×2 (09:14→21:35)
[2016-06-16] MEDS: LACTOBACILLUS ACIDOPHILUS TAB PO SCH ×3 (09:14→17:36)
[2016-06-16] MEDS: FAMOTIDINE 20 MG TAB PO SCH ×2 (09:14→21:35)
[2016-06-16] MEDS: METOPROLOL TARTRATE 25 MG TAB PO SCH ×2 (09:14→21:35)
[2016-06-16] MEDS: NYSTATIN 100,000 U/GM PWD 15 GM BTL TOPICAL SCH ×2 (09:15→21:36)
[2016-06-16 12:00] VITALS: BP 138/81; PULSE 76; RESP 19; TEMP 97.8; O2SAT 98
[2016-06-16 16:00] VITALS: BP 126/72; PULSE 73; RESP 20; TEMP 97.4; O2SAT 96
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
[2016-06-16] MEDS: AQUAPHOR OINT 50 APPLIC/50 GM TUBE TOP SCH (21:36)
[2016-06-16 22:00] VITALS: BP 117/58; PULSE 80; RESP 17; TEMP 99.3; O2SAT 98
[2016-06-17] VITALS: BP 117/58; PULSE 80; RESP 17; TEMP 99.3; O2SAT 98
[2016-06-17] MEDS: ENOXAPARIN SODIUM 60 MG/0.6 ML SYRINGE SQ SCH ×2 (05:21→16:04)
[2016-06-17 08:00] VITALS: BP 120/73; PULSE 79; RESP 20; TEMP 97.9; O2SAT 100
[2016-06-17] MEDS: buPROPion HCL 75 MG TAB PO SCH ×2 (08:03→21:08)
[2016-06-17] MEDS: METOPROLOL TARTRATE 25 MG TAB PO SCH ×2 (08:03→21:08)
[2016-06-17] MEDS: MULTIVITAMINS/IRON/MINERALS CHEWABLE TAB CHEW SCH (08:03)
[2016-06-17] MEDS: CALCIUM/VITAMIN D 250 MG/125 U TAB PO SCH ×2 (08:03→21:08)
[2016-06-17] MEDS: LACTOBACILLUS ACIDOPHILUS TAB PO SCH ×3 (08:03→16:04)
[2016-06-17] MEDS: FAMOTIDINE 20 MG TAB PO SCH ×2 (08:03→21:07)
[2016-06-17] MEDS: NYSTATIN 100,000 U/GM PWD 15 GM BTL TOPICAL SCH ×2 (08:04→21:08)
[2016-06-17] MEDS: LACTIC ACID (AMMONIUM LACTATE) 12% LOTION 225 GM BTL TOPICAL SCH ×2 (08:05→21:09)
[2016-06-17] MEDS: CARISOPRODOL 350 MG TAB PO PRN (10:50)
[2016-06-17] MEDS: CHOLESTYRAMINE 4 GM PACKET PO PRN (10:51)
--- NOTE | 2016-06-17 11:03 | HHI.PR ---
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 advancement to weightbearing as tolerated. Repeat Xray 05/02 shows healing fracture distal femur with plate/screws. Continue PT daily M- F. Slowly improving. T9 vertebral body fracture: Pt has declined surgery and agrees to only non operative treatment of the T9 vertebral body fracture. (nondisplaced, no canal / cord compromise on CT 11/10/15). The pt says the surgery could not occur because his weight was not supported. Pain management with Roxicodone; PO Dilaudid for breakthrough pain. Repeat CT thoracic spine 03/05 showed interval healing of T9 compression fracture deformity. Pt cleared for discharge by neurosurgery, no f/ up needed. Right 4th extensor tendon laceration; Dr. Phelps (plastics) evaluated pt and surgery was recommended and pt agreed. Pt apparently then refused surgery. Intermittent tachycardia secondary to pain and activity. Patient asymptomatic. EKG tracing with sinus tachycardia and PVCs. Unremarkable TSH, CBC and BMP. Echocardiogram unremarkable. Continue Lopressor. Resolved. Lower extremity edema and dry skin: Discussed with RN. No compression stockings to fit, recommend Tony wraps, the patient refuses secondary to discomfort. Refuses Lac-Hydrin lotion. Lower extremity cramping and spasms: Continue Soma as needed. CMP unremarkable , EEG negative. Consulted neurology as this has been limiting patient's physical therapy. Neuro workup reviewed. EMG ordered, patient refused. Neuro signed off. Depression/Anxiety: patient requested to speak with psychiatrist, consulted Dr. Roper, started patient on Wellbutrin 75mg po bid. Morbid obesity: BMI previously 59.6. Seems to have lost weight during admission. BMI 57.5 currently. Recurrent Cdifficile Diarrhea: long hx of Chronic Constipation throughout admission, now with ongoing diarrhea. Held cathartics and laxatives. Cdiff positive 05/05. Completed Flagyl 500mg q8h [id number] on 05/20. Repeat C.difficile negative on 05/20. Continue Lactinex. Recurrence of diarrhea. Retest for C diff 05/30 positive. Held antidiarrheals. Consulted ID with recurrence of C.diff, recommends treatment with Flagyl 500mg q6h [id number] (stop date 06/13). Continued loose stools after Flagyl, discussed with ID, recommends Questran with in frequency of stools. Trial of Questran. BPPV: Episode 05/14, single episode, none further. Meclizine prn. Prophylaxis. Lovenox 60mg Q12h. Discharge Planning Discharge PlanningDischarge planning to home when patient is able to ambulate safely vs SNF placement. No payer source for rehabilitation at this time. The plan currently is to remain in hospital until safe to return home. Problem Qualifiers (1) T9 vertebral fracture: Lyn Latham MD Jun 17, 2016 11:03
[2016-06-17 12:00] VITALS: BP 136/63; PULSE 80; RESP 19; TEMP 97.4; O2SAT 99
[2016-06-17 16:00] VITALS: BP_SYST 146; BP_SYST 157; BP_DIAS 69; BP_DIAS 71; PULSE 76; PULSE 80; RESP 19; RESP 20; TEMP 97.8; TEMP 97.9; O2SAT 100; O2SAT 96
[2016-06-17 20:00] VITALS: BP 127/63; PULSE 84; RESP 17; TEMP 98; O2SAT 97
[2016-06-17] MEDS: AQUAPHOR OINT 50 APPLIC/50 GM TUBE TOP SCH (21:08)
[2016-06-18] MEDS: ENOXAPARIN SODIUM 60 MG/0.6 ML SYRINGE SQ SCH ×2 (05:37→16:00)
[2016-06-18 08:00] VITALS: BP 130/71; PULSE 68; RESP 19; TEMP 97.9; O2SAT 99
[2016-06-18] MEDS: CARISOPRODOL 350 MG TAB PO PRN ×2 (09:14→17:30)
[2016-06-18] MEDS: CHOLESTYRAMINE 4 GM PACKET PO PRN (09:14)
[2016-06-18] MEDS: CALCIUM/VITAMIN D 250 MG/125 U TAB PO SCH ×2 (09:15→20:08)
[2016-06-18] MEDS: buPROPion HCL 75 MG TAB PO SCH ×2 (09:15→20:08)
[2016-06-18] MEDS: FAMOTIDINE 20 MG TAB PO SCH ×2 (09:15→20:08)
[2016-06-18] MEDS: METOPROLOL TARTRATE 25 MG TAB PO SCH ×2 (09:15→20:08)
[2016-06-18] MEDS: ERGOCALCIFEROL (VIT D2) 50,000 UNIT CAP PO SCH (09:15)
[2016-06-18] MEDS: LACTOBACILLUS ACIDOPHILUS TAB PO SCH ×3 (09:15→18:00)
[2016-06-18] MEDS: MULTIVITAMINS/IRON/MINERALS CHEWABLE TAB CHEW SCH (09:15)
[2016-06-18] MEDS: LACTIC ACID (AMMONIUM LACTATE) 12% LOTION 225 GM BTL TOPICAL SCH ×2 (09:18→20:09)
[2016-06-18] MEDS: NYSTATIN 100,000 U/GM PWD 15 GM BTL TOPICAL SCH ×2 (09:18→20:09)
--- NOTE | 2016-06-18 09:28 | HHI.PR ---
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 PT daily M- F. Slowly improving. T9 vertebral body fracture: Pt has declined surgery and agrees to only non operative treatment of the T9 vertebral body fracture. (nondisplaced, no canal / cord compromise on CT 11/10/15). The pt says the surgery could not occur because his weight was not supported. Pain management with Roxicodone; PO Dilaudid for breakthrough pain. Repeat CT thoracic spine 03/05 showed interval healing of T9 compression fracture deformity. Pt cleared for discharge by neurosurgery, no f/ up needed. Right 4th extensor tendon laceration; Dr. Phelps (plastics) evaluated pt and surgery was recommended and pt agreed. Pt apparently then refused surgery. Intermittent tachycardia secondary to pain and activity. Patient asymptomatic. EKG tracing with sinus tachycardia and PVCs. Unremarkable TSH, CBC and BMP. Echocardiogram unremarkable. Continue Lopressor. Resolved. Lower extremity edema and dry skin: Discussed with RN. No compression stockings to fit, recommend Tony wraps, the patient refuses secondary to discomfort. Refuses Lac-Hydrin lotion. Lower extremity cramping and spasms: Continue Soma as needed. CMP unremarkable , EEG negative. Consulted neurology as this has been limiting patient's physical therapy. Neuro workup reviewed. EMG ordered, patient refused. Neuro signed off. Depression/Anxiety: patient requested to speak with psychiatrist, consulted Dr. Roper, started patient on Wellbutrin 75mg po bid. Morbid obesity: BMI previously 59.6. Seems to have lost weight during admission. BMI 57.5 currently. Recurrent Cdifficile Diarrhea: long hx of Chronic Constipation throughout admission, now with ongoing diarrhea. Held cathartics and laxatives. Cdiff positive 05/05. Completed Flagyl 500mg q8h [id number] on 05/20. Repeat C.difficile negative on 05/20. Continue Lactinex. Recurrence of diarrhea. Retest for C diff 05/30 positive. Held antidiarrheals. Consulted ID with recurrence of C.diff, recommends treatment with Flagyl 500mg q6h [id number] (stop date 06/13). Continued loose stools after Flagyl, discussed with ID, recommends Questran with in frequency of stools. Trial of Questran seems to be working. BPPV: Episode 05/14, single episode, none further. Meclizine prn. Prophylaxis. Lovenox 60mg Q12h. Discharge Planning Discharge planning to home when patient is able to ambulate safely vs SNF placement. No payer source for rehabilitation at this time. The plan currently is to remain in hospital until safe to return home. Problem Qualifiers (1) T9 vertebral fracture: Lyn Latham MD Jun 18, 2016 09:28
[2016-06-18 12:00] VITALS: BP 133/69; PULSE 74; RESP 19; TEMP 97.7; O2SAT 99
[2016-06-18] MEDS: AQUAPHOR OINT 50 APPLIC/50 GM TUBE TOP SCH (20:08)
[2016-06-18 20:09] VITALS: BP 132/68; PULSE 80; RESP 20; TEMP 97.3; O2SAT 98
[2016-06-19 00:12] VITALS: BP 126/71; PULSE 68; RESP 17; TEMP 97.8; O2SAT 98
[2016-06-19] MEDS: CARISOPRODOL 350 MG TAB PO PRN ×2 (03:48→16:00)
[2016-06-19] MEDS: CHOLESTYRAMINE 4 GM PACKET PO PRN ×2 (03:48→16:00)
[2016-06-19] MEDS: ENOXAPARIN SODIUM 60 MG/0.6 ML SYRINGE SQ SCH ×2 (03:49→15:58)
[2016-06-19 08:00] VITALS: BP 122/74; PULSE 61; RESP 16; TEMP 98; O2SAT 100
[2016-06-19] MEDS: METOPROLOL TARTRATE 25 MG TAB PO SCH ×2 (09:00→20:34)
[2016-06-19] MEDS: LACTIC ACID (AMMONIUM LACTATE) 12% LOTION 225 GM BTL TOPICAL SCH ×2 (09:00→21:00)
[2016-06-19] MEDS: buPROPion HCL 75 MG TAB PO SCH ×2 (09:07→21:00)
[2016-06-19] MEDS: MULTIVITAMINS/IRON/MINERALS CHEWABLE TAB CHEW SCH (09:07)
[2016-06-19] MEDS: LACTOBACILLUS ACIDOPHILUS TAB PO SCH ×3 (09:07→17:49)
[2016-06-19] MEDS: CALCIUM/VITAMIN D 250 MG/125 U TAB PO SCH ×2 (09:07→20:35)
[2016-06-19] MEDS: FAMOTIDINE 20 MG TAB PO SCH ×2 (09:07→20:35)
[2016-06-19] MEDS: NYSTATIN 100,000 U/GM PWD 15 GM BTL TOPICAL SCH ×2 (09:09→21:00)
--- NOTE | 2016-06-19 10:05 | HHI.PR ---
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 T9 vertebral body fracture. (nondisplaced, no canal / cord compromise on CT 11/10/15). The pt says the surgery could not occur because his weight was not supported. Pain management with Roxicodone; PO Dilaudid for breakthrough pain. Repeat CT thoracic spine 03/05 showed interval healing of T9 compression fracture deformity. Pt cleared for discharge by neurosurgery, no f/ up needed. Right 4th extensor tendon laceration; Dr. Phelps (plastics) evaluated pt and surgery was recommended and pt agreed. Pt apparently then refused surgery. Intermittent tachycardia secondary to pain and activity. Patient asymptomatic. EKG tracing with sinus tachycardia and PVCs. Unremarkable TSH, CBC and BMP. Echocardiogram unremarkable. Continue Lopressor. Resolved. Lower extremity edema and dry skin: Discussed with RN. No compression stockings to fit, recommend Tony wraps, the patient refuses secondary to discomfort. Refuses Lac-Hydrin lotion. Lower extremity cramping and spasms: Continue Soma as needed. CMP unremarkable , EEG negative. Consulted neurology as this has been limiting patient's physical therapy. Neuro workup reviewed. EMG ordered, patient refused. Neuro signed off. Depression/Anxiety: patient requested to speak with psychiatrist, consulted Dr. Roper, started patient on Wellbutrin 75mg po bid. Morbid obesity: BMI previously 59.6. Seems to have lost weight during admission. BMI 57.5 currently. Recurrent Cdifficile Diarrhea: long hx of Chronic Constipation throughout admission, now with ongoing diarrhea. Held cathartics and laxatives. Cdiff positive 05/05. Completed Flagyl 500mg q8h [id number] on 05/20. Repeat C.difficile negative on 05/20. Continue Lactinex. Recurrence of diarrhea. Retest for C diff 05/30 positive. Held antidiarrheals. Consulted ID with recurrence of C.diff, recommends treatment with Flagyl 500mg q6h [id number] (stop date 06/13). Continued loose stools after Flagyl, discussed with ID, recommends Questran with in frequency of stools. Trial of Questran seems to be working. BPPV: Episode 05/14, single episode, none further. Meclizine prn. Prophylaxis. Lovenox 60mg Q12h. Discharge Planning Discharge planning to home when patient is able to ambulate safely vs SNF placement. No payer source for rehabilitation at this time. The plan currently is to remain in hospital until safe to return home. Problem Qualifiers (1) T9 vertebral fracture: Lyn Latham MD Jun 19, 2016 10:05
[2016-06-19 12:00] VITALS: BP 117/70; PULSE 66; RESP 16; TEMP 97.9; O2SAT 100
[2016-06-19 16:00] VITALS: BP 118/68; PULSE 63; RESP 17; TEMP 97; O2SAT 99
[2016-06-19 19:55] VITALS: BP 132/76; PULSE 78; RESP 20; TEMP 97.6; O2SAT 98
[2016-06-19] MEDS: AQUAPHOR OINT 50 APPLIC/50 GM TUBE TOP SCH (21:00)
[2016-06-19 23:50] VITALS: BP 132/74; PULSE 100; RESP 18; TEMP 98.3; O2SAT 97
[2016-06-20] MEDS: ENOXAPARIN SODIUM 60 MG/0.6 ML SYRINGE SQ SCH ×2 (04:00→15:42)
[2016-06-20] MEDS: CARISOPRODOL 350 MG TAB PO PRN ×2 (04:18→16:23)
[2016-06-20] MEDS: CHOLESTYRAMINE 4 GM PACKET PO PRN ×2 (04:50→16:23)
[2016-06-20 08:00] VITALS: BP 130/81; PULSE 92; RESP 16; TEMP 97.1; O2SAT 98
[2016-06-20] MEDS: buPROPion HCL 75 MG TAB PO SCH ×2 (08:48→21:49)
[2016-06-20] MEDS: FAMOTIDINE 20 MG TAB PO SCH ×2 (08:48→21:49)
[2016-06-20] MEDS: LACTOBACILLUS ACIDOPHILUS TAB PO SCH ×3 (08:48→16:23)
[2016-06-20] MEDS: METOPROLOL TARTRATE 25 MG TAB PO SCH ×2 (08:48→21:49)
[2016-06-20] MEDS: MULTIVITAMINS/IRON/MINERALS CHEWABLE TAB CHEW SCH (08:48)
[2016-06-20] MEDS: CALCIUM/VITAMIN D 250 MG/125 U TAB PO SCH ×2 (08:48→21:49)
[2016-06-20] MEDS: NYSTATIN 100,000 U/GM PWD 15 GM BTL TOPICAL SCH ×2 (08:49→21:00)
[2016-06-20] MEDS: LACTIC ACID (AMMONIUM LACTATE) 12% LOTION 225 GM BTL TOPICAL SCH ×2 (08:49→21:00)
--- NOTE | 2016-06-20 09:04 | HHI.PR ---
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 vertebral body fracture: Pt has declined surgery and agrees to only non operative treatment of the T9 vertebral body fracture. (nondisplaced, no canal / cord compromise on CT 11/10/15). The pt says the surgery could not occur because his weight was not supported. Pain management with Roxicodone; PO Dilaudid for breakthrough pain. Repeat CT thoracic spine 03/05 showed interval healing of T9 compression fracture deformity. Pt cleared for discharge by neurosurgery, no f/ up needed. Right 4th extensor tendon laceration; Dr. Phelps (plastics) evaluated pt and surgery was recommended and pt agreed. Pt apparently then refused surgery. Intermittent tachycardia secondary to pain and activity. Patient asymptomatic. EKG tracing with sinus tachycardia and PVCs. Unremarkable TSH, CBC and BMP. Echocardiogram unremarkable. Continue Lopressor. Resolved. Lower extremity edema and dry skin: Discussed with RN. No compression stockings to fit, recommend Tony wraps, the patient refuses secondary to discomfort. Refuses Lac-Hydrin lotion. Lower extremity cramping and spasms: Continue Soma as needed. CMP unremarkable , EEG negative. Consulted neurology as this has been limiting patient's physical therapy. Neuro workup reviewed. EMG ordered, patient refused. Neuro signed off. Depression/Anxiety: patient requested to speak with psychiatrist, consulted Dr. Roper, started patient on Wellbutrin 75mg po bid. Morbid obesity: BMI previously 59.6. Seems to have lost weight during admission. BMI 57.5 currently. Recurrent Cdifficile Diarrhea: long hx of Chronic Constipation throughout admission, now with ongoing diarrhea. Held cathartics and laxatives. Cdiff positive 05/05. Completed Flagyl 500mg q8h [id number] on 05/20. Repeat C.difficile negative on 05/20. Continue Lactinex. Recurrence of diarrhea. Retest for C diff 05/30 positive. Held antidiarrheals. Consulted ID with recurrence of C.diff, recommends treatment with Flagyl 500mg q6h q95kcwo (stop date 06/13). Continued loose stools after Flagyl, discussed with ID, recommends Questran with in frequency of stools. Trial of Questran seems to be working. BPPV: Episode 05/14, single episode, none further. Meclizine prn. Prophylaxis. Lovenox 60mg Q12h. Discharge Planning Discharge planning to home when patient is able to ambulate safely vs SNF placement. No payer source for rehabilitation at this time. The plan currently is to remain in hospital until safe to return home. Problem Qualifiers (1) T9 vertebral fracture: Lyn Latham MD Jun 20, 2016 09:04
[2016-06-20 11:59] VITALS: BP 129/76; PULSE 77; RESP 17; TEMP 96.9; O2SAT 98
[2016-06-20 16:00] VITALS: BP 134/74; PULSE 74; RESP 16; TEMP 97.3; O2SAT 99
[2016-06-20 20:00] VITALS: BP 119/67; PULSE 101; RESP 18; TEMP 96.5; O2SAT 98
[2016-06-20] MEDS: AQUAPHOR OINT 50 APPLIC/50 GM TUBE TOP SCH (21:00)
[2016-06-21] VITALS: BP 118/66; PULSE 70; RESP 20; TEMP 96.7; O2SAT 99
[2016-06-21] MEDS: CHOLESTYRAMINE 4 GM PACKET PO PRN ×3 (03:28→21:18)
[2016-06-21] MEDS: CARISOPRODOL 350 MG TAB PO PRN ×3 (03:28→21:17)
[2016-06-21] MEDS: ENOXAPARIN SODIUM 60 MG/0.6 ML SYRINGE SQ SCH ×2 (03:29→16:11)
[2016-06-21] MEDS: METOPROLOL TARTRATE 25 MG TAB PO SCH ×2 (07:42→21:17)
[2016-06-21] MEDS: buPROPion HCL 75 MG TAB PO SCH ×2 (07:42→21:17)
[2016-06-21] MEDS: MULTIVITAMINS/IRON/MINERALS CHEWABLE TAB CHEW SCH (07:42)
[2016-06-21] MEDS: LACTOBACILLUS ACIDOPHILUS TAB PO SCH ×3 (07:43→16:11)
[2016-06-21] MEDS: CALCIUM/VITAMIN D 250 MG/125 U TAB PO SCH ×2 (07:43→21:17)
[2016-06-21] MEDS: LACTIC ACID (AMMONIUM LACTATE) 12% LOTION 225 GM BTL TOPICAL SCH ×2 (07:43→21:00)
[2016-06-21] MEDS: FAMOTIDINE 20 MG TAB PO SCH ×2 (07:43→21:17)
[2016-06-21] MEDS: NYSTATIN 100,000 U/GM PWD 15 GM BTL TOPICAL SCH ×2 (07:44→21:00)
[2016-06-21 08:00] VITALS: BP 135/69; PULSE 74; RESP 16; TEMP 96.9; O2SAT 99
--- NOTE | 2016-06-21 09:15 | HHI.PR ---
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 vertebral body fracture: Pt has declined surgery and agrees to only non operative treatment of the T9 vertebral body fracture. (nondisplaced, no canal / cord compromise on CT 11/10/15). The pt says the surgery could not occur because his weight was not supported. Pain management with Roxicodone; PO Dilaudid for breakthrough pain. Repeat CT thoracic spine 03/05 showed interval healing of T9 compression fracture deformity. Pt cleared for discharge by neurosurgery, no f/ up needed. Right 4th extensor tendon laceration; Dr. Phelps (plastics) evaluated pt and surgery was recommended and pt agreed. Pt apparently then refused surgery. Intermittent tachycardia secondary to pain and activity. Patient asymptomatic. EKG tracing with sinus tachycardia and PVCs. Unremarkable TSH, CBC and BMP. Echocardiogram unremarkable. Continue Lopressor. Resolved. Lower extremity edema and dry skin: Discussed with RN. No compression stockings to fit, recommend Tony wraps, the patient refuses secondary to discomfort. Refuses Lac-Hydrin lotion. Lower extremity cramping and spasms: Continue Soma as needed. CMP unremarkable , EEG negative. Consulted neurology as this has been limiting patient's physical therapy. Neuro workup reviewed. EMG ordered, patient refused. Neuro signed off. Depression/Anxiety: patient requested to speak with psychiatrist, consulted Dr. Roper, started patient on Wellbutrin 75mg po bid. Morbid obesity: BMI previously 59.6. Seems to have lost weight during admission. BMI 57.5 currently. Recurrent Cdifficile Diarrhea: long hx of Chronic Constipation throughout admission, now with ongoing diarrhea. Held cathartics and laxatives. Cdiff positive 05/05. Completed Flagyl 500mg q8h [id number] on 05/20. Repeat C.difficile negative on 05/20. Continue Lactinex. Recurrence of diarrhea. Retest for C diff 05/30 positive. Held antidiarrheals. Consulted ID with recurrence of C.diff, recommends treatment with Flagyl 500mg q6h [id number] (stop date 06/13). Continued loose stools after Flagyl, discussed with ID, recommends Questran with in frequency of stools. Trial of Questran seems to be working. BPPV: Episode 05/14, single episode, none further. Meclizine prn. Prophylaxis. Lovenox 60mg Q12h. Discharge Planning Discharge planning to home when patient is able to ambulate safely vs SNF placement. No payer source for rehabilitation at this time. The plan currently is to remain in hospital until safe to return home. Problem Qualifiers (1) T9 vertebral fracture: Lyn Latham MD Jun 21, 2016 09:15
[2016-06-21 12:00] VITALS: BP 129/60; PULSE 70; RESP 17; TEMP 97; O2SAT 98
[2016-06-21 16:00] VITALS: BP 122/66; PULSE 70; RESP 17; TEMP 98; O2SAT 97
[2016-06-21 18:11] VITALS: BP 146/82; PULSE 101; RESP 20; TEMP 96.3; O2SAT 98
[2016-06-21] MEDS: AQUAPHOR OINT 50 APPLIC/50 GM TUBE TOP SCH (21:00)
[2016-06-22] VITALS: BP 133/76; PULSE 69; RESP 28; TEMP 96.7; O2SAT 98
[2016-06-22] MEDS: ENOXAPARIN SODIUM 60 MG/0.6 ML SYRINGE SQ SCH ×2 (03:31→18:04)
[2016-06-22 08:00] VITALS: BP 115/73; PULSE 59; RESP 14; TEMP 95.2; O2SAT 97
[2016-06-22] MEDS: NYSTATIN 100,000 U/GM PWD 15 GM BTL TOPICAL SCH ×2 (09:00→21:00)
[2016-06-22] MEDS: METOPROLOL TARTRATE 25 MG TAB PO SCH ×2 (09:00→21:59)
[2016-06-22] MEDS: LACTOBACILLUS ACIDOPHILUS TAB PO SCH ×3 (09:57→18:04)
[2016-06-22] MEDS: LACTIC ACID (AMMONIUM LACTATE) 12% LOTION 225 GM BTL TOPICAL SCH ×2 (09:57→21:00)
[2016-06-22] MEDS: buPROPion HCL 75 MG TAB PO SCH ×2 (09:57→22:00)
[2016-06-22] MEDS: CALCIUM/VITAMIN D 250 MG/125 U TAB PO SCH ×2 (09:57→21:59)
[2016-06-22] MEDS: MULTIVITAMINS/IRON/MINERALS CHEWABLE TAB CHEW SCH (09:57)
[2016-06-22] MEDS: FAMOTIDINE 20 MG TAB PO SCH ×2 (09:57→22:00)
--- NOTE | 2016-06-22 10:25 | HHI.PR ---
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 M- F. Slowly improving. T9 vertebral body fracture: Pt has declined surgery and agrees to only non operative treatment of the T9 vertebral body fracture. (nondisplaced, no canal / cord compromise on CT 11/10/15). The pt says the surgery could not occur because his weight was not supported. Pain management with Roxicodone; PO Dilaudid for breakthrough pain. Repeat CT thoracic spine 03/05 showed interval healing of T9 compression fracture deformity. Pt cleared for discharge by neurosurgery, no f/ up needed. Right 4th extensor tendon laceration; Dr. Phelps (plastics) evaluated pt and surgery was recommended and pt agreed. Pt apparently then refused surgery. Intermittent tachycardia secondary to pain and activity. Patient asymptomatic. EKG tracing with sinus tachycardia and PVCs. Unremarkable TSH, CBC and BMP. Echocardiogram unremarkable. Continue Lopressor. Resolved. Lower extremity edema and dry skin: Discussed with RN. No compression stockings to fit, recommend Tony wraps, the patient refuses secondary to discomfort. Refuses Lac-Hydrin lotion. Lower extremity cramping and spasms: Continue Soma as needed. CMP unremarkable , EEG negative. Consulted neurology as this has been limiting patient's physical therapy. Neuro workup reviewed. EMG ordered, patient refused. Neuro signed off. Depression/Anxiety: patient requested to speak with psychiatrist, consulted Dr. Judson, started patient on Wellbutrin 75mg po bid. Morbid obesity: BMI previously 59.6. Seems to have lost weight during admission. BMI 57.5 currently. Recurrent Cdifficile Diarrhea: long hx of Chronic Constipation throughout admission, now with ongoing diarrhea. Held cathartics and laxatives. Cdiff positive 05/05. Completed Flagyl 500mg q8h [id number] on 05/20. Repeat C.difficile negative on 05/20. Continue Lactinex. Recurrence of diarrhea. Retest for C diff 05/30 positive. Held antidiarrheals. Consulted ID with recurrence of C.diff, recommends treatment with Flagyl 500mg q6h [id number] (stop date 06/13). Continued loose stools after Flagyl, discussed with ID, recommends Questran with in frequency of stools. Trial of Questran seems to be working. BPPV: Episode 05/14, single episode, none further. Meclizine prn. Prophylaxis. Lovenox 60mg Q12h. Discharge Planning Discharge planning to home when patient is able to ambulate safely vs SNF placement. No payer source for rehabilitation at this time. The plan currently is to remain in hospital until safe to return home. Problem Qualifiers (1) T9 vertebral fracture: Lyn Latham MD Jun 22, 2016 10:25
[2016-06-22 12:00] VITALS: BP 153/72; PULSE 82; RESP 16; TEMP 95.6; O2SAT 100
[2016-06-22] MEDS: CHOLESTYRAMINE 4 GM PACKET PO PRN ×2 (13:41→22:03)
[2016-06-22] MEDS: CARISOPRODOL 350 MG TAB PO PRN ×2 (13:41→22:02)
[2016-06-22 16:00] VITALS: BP 138/82; PULSE 118; RESP 17; TEMP 97.9; O2SAT 99
[2016-06-22 20:00] VITALS: BP 143/88; PULSE 90; RESP 20; TEMP 97.8; O2SAT 98
[2016-06-22] MEDS: AQUAPHOR OINT 50 APPLIC/50 GM TUBE TOP SCH (21:00)
[2016-06-23 00:57] VITALS: BP 138/67; PULSE 82; RESP 20; TEMP 98; O2SAT 96
[2016-06-23] MEDS: ENOXAPARIN SODIUM 60 MG/0.6 ML SYRINGE SQ SCH ×2 (04:00→16:10)
[2016-06-23 08:00] VITALS: BP 139/70; PULSE 86; RESP 20; TEMP 95.6; O2SAT 99
[2016-06-23] MEDS: CALCIUM/VITAMIN D 250 MG/125 U TAB PO SCH ×2 (08:36→21:59)
[2016-06-23] MEDS: FAMOTIDINE 20 MG TAB PO SCH ×2 (08:36→21:59)
[2016-06-23] MEDS: buPROPion HCL 75 MG TAB PO SCH ×2 (08:36→21:59)
[2016-06-23] MEDS: CARISOPRODOL 350 MG TAB PO PRN ×3 (08:36→21:59)
[2016-06-23] MEDS: LACTOBACILLUS ACIDOPHILUS TAB PO SCH ×4 (08:36→18:48)
[2016-06-23] MEDS: METOPROLOL TARTRATE 25 MG TAB PO SCH ×2 (08:36→21:59)
[2016-06-23] MEDS: MULTIVITAMINS/IRON/MINERALS CHEWABLE TAB CHEW SCH (08:36)
[2016-06-23] MEDS: LACTIC ACID (AMMONIUM LACTATE) 12% LOTION 225 GM BTL TOPICAL SCH ×2 (09:00→21:00)
[2016-06-23] MEDS: NYSTATIN 100,000 U/GM PWD 15 GM BTL TOPICAL SCH ×2 (09:00→21:00)
[2016-06-23 12:00] VITALS: BP 150/79; PULSE 78; RESP 20; TEMP 95.6; O2SAT 98
--- NOTE | 2016-06-23 13:21 | HHI.PR ---
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 good position s/p ORIF. Orthopedic surgery has now cleared patient for advancement to weightbearing as tolerated. Repeat Xray 05/02 shows healing fracture distal femur with plate/screws. Continue PT daily M- F. Slowly improving. T9 vertebral body fracture: Pt has declined surgery and agrees to only non operative treatment of the T9 vertebral body fracture. (nondisplaced, no canal / cord compromise on CT 11/10/15). The pt says the surgery could not occur because his weight was not supported. Pain management with Roxicodone; PO Dilaudid for breakthrough pain. Repeat CT thoracic spine 03/05 showed interval healing of T9 compression fracture deformity. Pt cleared for discharge by neurosurgery, no f/ up needed. Right 4th extensor tendon laceration; Dr. Phelps (plastics) evaluated pt and surgery was recommended and pt agreed. Pt apparently then refused surgery. Intermittent tachycardia secondary to pain and activity. Patient asymptomatic. EKG tracing with sinus tachycardia and PVCs. Unremarkable TSH, CBC and BMP. Echocardiogram unremarkable. Continue Lopressor. Resolved. Lower extremity edema and dry skin: Discussed with RN. No compression stockings to fit, recommend Tony wraps, the patient refuses secondary to discomfort. Refuses Lac-Hydrin lotion. Lower extremity cramping and spasms: Continue Soma as needed. CMP unremarkable , EEG negative. Consulted neurology as this has been limiting patient's physical therapy. Neuro workup reviewed. EMG ordered, patient refused. Neuro signed off. Depression/Anxiety: patient requested to speak with psychiatrist, consulted Dr. Roper, started patient on Wellbutrin 75mg po bid. Morbid obesity: BMI previously 59.6. Seems to have lost weight during admission. BMI 57.5 currently. Recurrent Cdifficile Diarrhea: long hx of Chronic Constipation throughout admission, now with ongoing diarrhea. Held cathartics and laxatives. Cdiff positive 05/05. Completed Flagyl 500mg q8h [id number] on 05/20. Repeat C.difficile negative on 05/20. Continue Lactinex. Recurrence of diarrhea. Retest for C diff 05/30 positive. Held antidiarrheals. Consulted ID with recurrence of C.diff, recommends treatment with Flagyl 500mg q6h [id number] (stop date 06/13). Continued loose stools after Flagyl, discussed with ID, recommends Questran with in frequency of stools. Trial of Questran seems to be working. BPPV: Episode 05/14, single episode, none further. Meclizine prn. Prophylaxis. Lovenox 60mg Q12h. Discharge Planning Discharge planning to home when patient is able to ambulate safely vs SNF placement. No payer source for rehabilitation at this time. The plan currently is to remain in hospital until safe to return home. Problem Qualifiers (1) T9 vertebral fracture: Lyn Latham MD Jun 23, 2016 13:20
[2016-06-23] MEDS: CHOLESTYRAMINE 4 GM PACKET PO PRN ×2 (14:44→22:04)
[2016-06-23 16:00] VITALS: BP 149/96; PULSE 80; RESP 20; TEMP 95.6; O2SAT 98
[2016-06-23 20:00] VITALS: BP 135/72; PULSE 79; RESP 20; TEMP 97.8; O2SAT 97
[2016-06-23] MEDS: AQUAPHOR OINT 50 APPLIC/50 GM TUBE TOP SCH (21:00)
[2016-06-24] VITALS: BP 145/71; PULSE 79; RESP 18; TEMP 98.7; O2SAT 98
[2016-06-24] MEDS: ENOXAPARIN SODIUM 60 MG/0.6 ML SYRINGE SQ SCH ×2 (04:33→17:09)
[2016-06-24 08:00] VITALS: BP 133/70; PULSE 63; RESP 20; TEMP 96.3; O2SAT 97
[2016-06-24] MEDS: CARISOPRODOL 350 MG TAB PO PRN ×2 (08:38→18:24)
[2016-06-24] MEDS: CALCIUM/VITAMIN D 250 MG/125 U TAB PO SCH ×2 (08:38→21:37)
[2016-06-24] MEDS: FAMOTIDINE 20 MG TAB PO SCH ×2 (08:38→21:37)
[2016-06-24] MEDS: buPROPion HCL 75 MG TAB PO SCH ×2 (08:38→21:37)
[2016-06-24] MEDS: CHOLESTYRAMINE 4 GM PACKET PO PRN ×2 (08:38→18:26)
[2016-06-24] MEDS: LACTOBACILLUS ACIDOPHILUS TAB PO SCH ×3 (08:38→17:08)
[2016-06-24] MEDS: METOPROLOL TARTRATE 25 MG TAB PO SCH ×2 (08:38→21:37)
[2016-06-24] MEDS: MULTIVITAMINS/IRON/MINERALS CHEWABLE TAB CHEW SCH (08:38)
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
[2016-06-24 12:00] VITALS: BP 136/78; PULSE 65; RESP 20; TEMP 96.4; O2SAT 100
[2016-06-24] MEDS: NYSTATIN 100,000 U/GM PWD 15 GM BTL TOPICAL SCH ×2 (13:22→21:00)
[2016-06-24] MEDS: LACTIC ACID (AMMONIUM LACTATE) 12% LOTION 225 GM BTL TOPICAL SCH ×2 (13:23→21:00)
[2016-06-24 16:00] VITALS: BP 140/81; PULSE 89; RESP 20; TEMP 97; O2SAT 100
[2016-06-24 20:44] VITALS: BP 131/88; PULSE 88; RESP 20; TEMP 98.6; O2SAT 99
[2016-06-24] MEDS: AQUAPHOR OINT 50 APPLIC/50 GM TUBE TOP SCH (21:00)
[2016-06-25 00:13] VITALS: BP 141/81; PULSE 82; RESP 18; TEMP 98.1; O2SAT 98
[2016-06-25] MEDS: ENOXAPARIN SODIUM 60 MG/0.6 ML SYRINGE SQ SCH ×2 (04:14→16:29)
[2016-06-25 05:56] LABS: AUTOMATED NEUTROPHIL # 3.1 TH/MM3 (1.8-7.7); BASOPHIL % 0.6 % (0.0-2.0); EOSINOPHIL # 0.2 TH/MM3 (0-0.4); EOSINOPHIL % 3.4 % (0.0-4.0); HEMATOCRIT 34.2 % (39.0-51.0); LYMPH % 29.5 % (9.0-44.0); LYMPHOCYTE # 1.5 TH/MM3 (1.0-4.8); MEAN CELL VOLUME 76.2 FL (80.0-100.0); MEAN CORPUSCULAR HEMOGLOBIN 24.4 PG (27.0-34.0); NEUT % 58.5 % (16.0-70.0); PLATELET COUNT 172 TH/MM3 (150-450); RED BLOOD COUNT 4.48 MIL/MM3 (4.50-5.90); RED CELL DISTRIBUTION WIDTH 17.8 % (11.6-17.2); WHITE BLOOD COUNT 5.2 TH/MM3 (4.0-11.0)
[2016-06-25] MEDS: CARISOPRODOL 350 MG TAB PO PRN ×3 (05:57→22:34)
[2016-06-25 06:05] LABS: HEMO FLAGS AUTO DIFF
[2016-06-25 06:18] LABS: BICARBONATE 31.1 MEQ/L (21.0-32.0); POTASSIUM 3.8 MEQ/L (3.5-5.1)
[2016-06-25 07:16] LABS: OVALOCYTES 1+ (NORMAL)
[2016-06-25 07:17] LABS: SCAN/DIFF AUTO DIFF CONFIRMED
[2016-06-25 08:00] VITALS: BP 115/67; PULSE 62; RESP 19; TEMP 96.4; O2SAT 97
[2016-06-25] MEDS: CALCIUM/VITAMIN D 250 MG/125 U TAB PO SCH ×2 (08:34→22:34)
[2016-06-25] MEDS: FAMOTIDINE 20 MG TAB PO SCH ×2 (08:34→22:34)
[2016-06-25] MEDS: METOPROLOL TARTRATE 25 MG TAB PO SCH ×2 (08:34→22:34)
[2016-06-25] MEDS: LACTOBACILLUS ACIDOPHILUS TAB PO SCH ×3 (08:34→16:28)
[2016-06-25] MEDS: ERGOCALCIFEROL (VIT D2) 50,000 UNIT CAP PO SCH (08:34)
[2016-06-25] MEDS: MULTIVITAMINS/IRON/MINERALS CHEWABLE TAB CHEW SCH (08:34)
[2016-06-25] MEDS: buPROPion HCL 75 MG TAB PO SCH ×2 (08:34→22:34)
[2016-06-25] MEDS: LACTIC ACID (AMMONIUM LACTATE) 12% LOTION 225 GM BTL TOPICAL SCH ×2 (08:36→21:00)
[2016-06-25] MEDS: NYSTATIN 100,000 U/GM PWD 15 GM BTL TOPICAL SCH ×2 (08:36→21:00)
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
[2016-06-25 12:00] VITALS: BP 133/84; PULSE 70; RESP 19; TEMP 96.5; O2SAT 97
[2016-06-25] MEDS: CHOLESTYRAMINE 4 GM PACKET PO PRN ×2 (14:14→22:32)
[2016-06-25 16:00] VITALS: BP 123/73; PULSE 76; RESP 18; TEMP 97.4; O2SAT 97
[2016-06-25 20:19] VITALS: BP 147/76; PULSE 71; RESP 18; TEMP 97.9; O2SAT 98
[2016-06-25] MEDS: AQUAPHOR OINT 50 APPLIC/50 GM TUBE TOP SCH (21:00)
[2016-06-26 00:10] VITALS: BP 124/60; PULSE 67; RESP 18; TEMP 97.4; O2SAT 98
[2016-06-26] MEDS: ENOXAPARIN SODIUM 60 MG/0.6 ML SYRINGE SQ SCH ×2 (04:26→15:14)
[2016-06-26] MEDS: CARISOPRODOL 350 MG TAB PO PRN ×3 (06:21→21:39)
[2016-06-26] MEDS: LACTOBACILLUS ACIDOPHILUS TAB PO SCH ×3 (07:55→18:07)
[2016-06-26] MEDS: CALCIUM/VITAMIN D 250 MG/125 U TAB PO SCH ×2 (07:55→20:26)
[2016-06-26] MEDS: NYSTATIN 100,000 U/GM PWD 15 GM BTL TOPICAL SCH ×2 (07:55→20:27)
[2016-06-26] MEDS: METOPROLOL TARTRATE 25 MG TAB PO SCH ×2 (07:55→20:26)
[2016-06-26] MEDS: MULTIVITAMINS/IRON/MINERALS CHEWABLE TAB CHEW SCH (07:55)
[2016-06-26] MEDS: LACTIC ACID (AMMONIUM LACTATE) 12% LOTION 225 GM BTL TOPICAL SCH ×2 (07:55→20:28)
[2016-06-26] MEDS: FAMOTIDINE 20 MG TAB PO SCH ×2 (07:55→20:26)
[2016-06-26] MEDS: buPROPion HCL 75 MG TAB PO SCH ×2 (07:55→20:26)
[2016-06-26 08:00] VITALS: BP 121/63; PULSE 64; RESP 17; TEMP 95.8; O2SAT 99
[2016-06-26] MEDS: CHOLESTYRAMINE 4 GM PACKET PO PRN (08:01)
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
[2016-06-26 09:26] LABS: C. DIFF EPI 027 PRESUMPTIVE NEGATIVE (NEGATIVE)
[2016-06-26 12:00] VITALS: BP 119/58; PULSE 66; RESP 17; TEMP 96.6
[2016-06-26] MEDS: LOPERAMIDE HCL 2 MG CAP PO PRN ×2 (13:05→20:26)
[2016-06-26 16:00] VITALS: BP 113/70; PULSE 90; RESP 18; TEMP 96.5; O2SAT 96
[2016-06-26 20:00] VITALS: BP 156/106; PULSE 89; RESP 20; TEMP 96.1; O2SAT 97
[2016-06-26] MEDS: AQUAPHOR OINT 50 APPLIC/50 GM TUBE TOP SCH (20:27)
[2016-06-27] MEDS: LOPERAMIDE HCL 2 MG CAP PO PRN ×4 (03:09→22:36)
[2016-06-27] MEDS: ENOXAPARIN SODIUM 60 MG/0.6 ML SYRINGE SQ SCH ×2 (03:09→15:25)
[2016-06-27] MEDS: MULTIVITAMINS/IRON/MINERALS CHEWABLE TAB CHEW SCH (07:46)
[2016-06-27] MEDS: buPROPion HCL 75 MG TAB PO SCH ×2 (07:46→22:38)
[2016-06-27] MEDS: LACTOBACILLUS ACIDOPHILUS TAB PO SCH ×3 (07:46→18:03)
[2016-06-27] MEDS: CALCIUM/VITAMIN D 250 MG/125 U TAB PO SCH ×2 (07:46→22:38)
[2016-06-27] MEDS: FAMOTIDINE 20 MG TAB PO SCH ×2 (07:46→22:38)
[2016-06-27] MEDS: METOPROLOL TARTRATE 25 MG TAB PO SCH ×2 (07:46→21:00)
[2016-06-27] MEDS: NYSTATIN 100,000 U/GM PWD 15 GM BTL TOPICAL SCH ×2 (07:47→21:00)
[2016-06-27] MEDS: LACTIC ACID (AMMONIUM LACTATE) 12% LOTION 225 GM BTL TOPICAL SCH ×2 (07:49→21:00)
[2016-06-27 08:00] VITALS: BP 115/73; PULSE 67; RESP 16; TEMP 96.5; O2SAT 97
[2016-06-27] MEDS: CARISOPRODOL 350 MG TAB PO PRN ×2 (10:17→18:25)
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
[2016-06-27 12:00] VITALS: BP 111/72; PULSE 66; RESP 16; TEMP 97.3; O2SAT 99
[2016-06-27 16:00] VITALS: BP 115/60; PULSE 60; RESP 16; TEMP 96.8; O2SAT 98
[2016-06-27 20:00] VITALS: BP 155/91; PULSE 92; RESP 20; TEMP 99.6; O2SAT 99
[2016-06-27] MEDS: AQUAPHOR OINT 50 APPLIC/50 GM TUBE TOP SCH (21:00)
[2016-06-28] VITALS: BP 131/74; PULSE 82; RESP 20; TEMP 98; O2SAT 97
[2016-06-28] MEDS: ENOXAPARIN SODIUM 60 MG/0.6 ML SYRINGE SQ SCH ×2 (03:52→16:45)
[2016-06-28] MEDS: CARISOPRODOL 350 MG TAB PO PRN ×2 (03:54→16:45)
[2016-06-28 08:00] VITALS: BP 120/72; PULSE 93; RESP 18; TEMP 97.1; O2SAT 96
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
[2016-06-28] MEDS: NYSTATIN 100,000 U/GM PWD 15 GM BTL TOPICAL SCH ×2 (09:00→21:00)
[2016-06-28] MEDS: LACTIC ACID (AMMONIUM LACTATE) 12% LOTION 225 GM BTL TOPICAL SCH ×2 (09:00→21:00)
[2016-06-28] MEDS: LOPERAMIDE HCL 2 MG CAP PO PRN ×3 (10:12→21:20)
[2016-06-28] MEDS: LACTOBACILLUS ACIDOPHILUS TAB PO SCH ×3 (10:13→16:45)
[2016-06-28] MEDS: FAMOTIDINE 20 MG TAB PO SCH ×2 (10:13→21:19)
[2016-06-28] MEDS: MULTIVITAMINS/IRON/MINERALS CHEWABLE TAB CHEW SCH (10:13)
[2016-06-28] MEDS: CALCIUM/VITAMIN D 250 MG/125 U TAB PO SCH ×2 (10:13→21:19)
[2016-06-28] MEDS: METOPROLOL TARTRATE 25 MG TAB PO SCH ×2 (10:13→21:20)
[2016-06-28] MEDS: buPROPion HCL 75 MG TAB PO SCH ×2 (10:13→21:19)
[2016-06-28 12:00] VITALS: BP 117/70; PULSE 85; RESP 16; TEMP 97; O2SAT 97
[2016-06-28 16:00] VITALS: BP 130/78; PULSE 79; RESP 18; TEMP 98.1; O2SAT 99
[2016-06-28 20:41] VITALS: BP 124/74; PULSE 78; RESP 20; TEMP 98.1; O2SAT 98
[2016-06-28] MEDS: AQUAPHOR OINT 50 APPLIC/50 GM TUBE TOP SCH (21:00)
[2016-06-29 00:33] VITALS: BP 114/61; PULSE 72; RESP 20; TEMP 96.7; O2SAT 98
[2016-06-29] MEDS: LOPERAMIDE HCL 2 MG CAP PO PRN ×3 (04:49→16:53)
[2016-06-29] MEDS: CARISOPRODOL 350 MG TAB PO PRN ×2 (04:49→16:53)
[2016-06-29] MEDS: ENOXAPARIN SODIUM 60 MG/0.6 ML SYRINGE SQ SCH ×2 (04:49→16:00)
[2016-06-29 08:00] VITALS: BP 127/60; PULSE 80; RESP 14; TEMP 96.6; O2SAT 98
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
[2016-06-29] MEDS: FAMOTIDINE 20 MG TAB PO SCH ×2 (10:15→20:34)
[2016-06-29] MEDS: CALCIUM/VITAMIN D 250 MG/125 U TAB PO SCH ×2 (10:15→20:34)
[2016-06-29] MEDS: LACTOBACILLUS ACIDOPHILUS TAB PO SCH ×3 (10:16→16:54)
[2016-06-29] MEDS: MULTIVITAMINS/IRON/MINERALS CHEWABLE TAB CHEW SCH (10:16)
[2016-06-29] MEDS: METOPROLOL TARTRATE 25 MG TAB PO SCH ×2 (10:16→20:34)
[2016-06-29] MEDS: buPROPion HCL 75 MG TAB PO SCH ×2 (10:16→20:34)
[2016-06-29] MEDS: NYSTATIN 100,000 U/GM PWD 15 GM BTL TOPICAL SCH ×2 (10:18→20:34)
[2016-06-29] MEDS: LACTIC ACID (AMMONIUM LACTATE) 12% LOTION 225 GM BTL TOPICAL SCH ×2 (10:18→20:34)
[2016-06-29 12:00] VITALS: BP 128/68; PULSE 69; RESP 18; TEMP 97.6; O2SAT 98
[2016-06-29 16:00] VITALS: BP 122/72; PULSE 72; RESP 16; TEMP 97; O2SAT 97
[2016-06-29 20:00] VITALS: BP 129/74; PULSE 73; RESP 20; TEMP 97.8; O2SAT 96
[2016-06-29] MEDS: AQUAPHOR OINT 50 APPLIC/50 GM TUBE TOP SCH (20:34)
[2016-06-30] VITALS: BP 122/59; PULSE 70; RESP 19; TEMP 96; O2SAT 95
[2016-06-30] MEDS: ENOXAPARIN SODIUM 60 MG/0.6 ML SYRINGE SQ SCH ×2 (04:00→16:00)
[2016-06-30] MEDS: METOPROLOL TARTRATE 25 MG TAB PO SCH ×2 (07:48→21:29)
[2016-06-30] MEDS: FAMOTIDINE 20 MG TAB PO SCH ×2 (07:48→21:29)
[2016-06-30] MEDS: MULTIVITAMINS/IRON/MINERALS CHEWABLE TAB CHEW SCH (07:48)
[2016-06-30] MEDS: CALCIUM/VITAMIN D 250 MG/125 U TAB PO SCH ×2 (07:48→21:29)
[2016-06-30] MEDS: buPROPion HCL 75 MG TAB PO SCH ×2 (07:49→21:29)
[2016-06-30] MEDS: LACTOBACILLUS ACIDOPHILUS TAB PO SCH ×3 (07:49→16:03)
[2016-06-30] MEDS: NYSTATIN 100,000 U/GM PWD 15 GM BTL TOPICAL SCH ×2 (07:49→20:55)
[2016-06-30] MEDS: LACTIC ACID (AMMONIUM LACTATE) 12% LOTION 225 GM BTL TOPICAL SCH ×2 (07:49→20:55)
[2016-06-30] MEDS: LOPERAMIDE HCL 2 MG CAP PO PRN ×2 (07:55→16:02)
[2016-06-30] MEDS: CARISOPRODOL 350 MG TAB PO PRN ×2 (07:55→16:03)
[2016-06-30 08:00] VITALS: BP 120/60; PULSE 66; RESP 17; TEMP 96.9; O2SAT 95
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
[2016-06-30 12:00] VITALS: BP 115/55; PULSE 58; RESP 16; TEMP 95.7; O2SAT 96
[2016-06-30 16:00] VITALS: BP 130/81; PULSE 72; RESP 17; TEMP 95.8; O2SAT 95
[2016-06-30 20:00] VITALS: BP 127/78; PULSE 75; RESP 17; TEMP 97.3; O2SAT 98
[2016-06-30] MEDS: AQUAPHOR OINT 50 APPLIC/50 GM TUBE TOP SCH (20:55)
[2016-07-01] MEDS: CARISOPRODOL 350 MG TAB PO PRN ×2 (00:06→17:44)
[2016-07-01] MEDS: LOPERAMIDE HCL 2 MG CAP PO PRN ×2 (00:06→17:45)
[2016-07-01] MEDS: ENOXAPARIN SODIUM 60 MG/0.6 ML SYRINGE SQ SCH ×2 (04:45→16:14)
[2016-07-01] MEDS: METOPROLOL TARTRATE 25 MG TAB PO SCH ×2 (07:50→21:26)
[2016-07-01] MEDS: LACTOBACILLUS ACIDOPHILUS TAB PO SCH ×3 (07:50→16:14)
[2016-07-01] MEDS: MULTIVITAMINS/IRON/MINERALS CHEWABLE TAB CHEW SCH (07:50)
[2016-07-01] MEDS: buPROPion HCL 75 MG TAB PO SCH ×2 (07:51→21:27)
[2016-07-01] MEDS: FAMOTIDINE 20 MG TAB PO SCH ×2 (07:51→21:27)
[2016-07-01] MEDS: NYSTATIN 100,000 U/GM PWD 15 GM BTL TOPICAL SCH ×2 (07:51→21:00)
[2016-07-01] MEDS: LACTIC ACID (AMMONIUM LACTATE) 12% LOTION 225 GM BTL TOPICAL SCH ×2 (07:51→21:00)
[2016-07-01] MEDS: CALCIUM/VITAMIN D 250 MG/125 U TAB PO SCH ×2 (07:51→21:27)
[2016-07-01 08:00] VITALS: BP 100/56; PULSE 60; RESP 17; TEMP 96.2; O2SAT 99
[2016-07-01 12:00] VITALS: BP 113/65; PULSE 54; RESP 16; TEMP 96.6; O2SAT 98
[2016-07-01 16:00] VITALS: BP 110/65; PULSE 65; RESP 17; TEMP 96.7; O2SAT 98
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
[2016-07-01 20:00] VITALS: BP 127/70; PULSE 100; RESP 20; TEMP 98.3; O2SAT 97
[2016-07-01] MEDS: AQUAPHOR OINT 50 APPLIC/50 GM TUBE TOP SCH (21:00)
[2016-07-02] VITALS: BP 120/57; PULSE 72; RESP 20; TEMP 98.4; O2SAT 96
[2016-07-02] MEDS: ENOXAPARIN SODIUM 60 MG/0.6 ML SYRINGE SQ SCH ×2 (05:28→18:59)
[2016-07-02 08:00] VITALS: BP 112/72; PULSE 89; RESP 16; TEMP 96.9; O2SAT 98
[2016-07-02] MEDS: LACTIC ACID (AMMONIUM LACTATE) 12% LOTION 225 GM BTL TOPICAL SCH ×2 (09:00→21:00)
[2016-07-02] MEDS: NYSTATIN 100,000 U/GM PWD 15 GM BTL TOPICAL SCH ×2 (09:00→21:00)
[2016-07-02] MEDS: MULTIVITAMINS/IRON/MINERALS CHEWABLE TAB CHEW SCH (10:20)
[2016-07-02] MEDS: LACTOBACILLUS ACIDOPHILUS TAB PO SCH ×3 (10:20→18:59)
[2016-07-02] MEDS: FAMOTIDINE 20 MG TAB PO SCH ×2 (10:21→22:04)
[2016-07-02] MEDS: CARISOPRODOL 350 MG TAB PO PRN ×2 (10:21→19:00)
[2016-07-02] MEDS: CALCIUM/VITAMIN D 250 MG/125 U TAB PO SCH ×2 (10:21→22:04)
[2016-07-02] MEDS: buPROPion HCL 75 MG TAB PO SCH ×2 (10:21→22:04)
[2016-07-02] MEDS: ERGOCALCIFEROL (VIT D2) 50,000 UNIT CAP PO SCH (10:21)
[2016-07-02] MEDS: METOPROLOL TARTRATE 25 MG TAB PO SCH ×2 (10:22→22:04)
[2016-07-02 12:00] VITALS: BP 114/76; PULSE 76; RESP 16; TEMP 97; O2SAT 97
[2016-07-02 16:00] VITALS: BP 124/68; PULSE 81; RESP 18; TEMP 98.4; O2SAT 99
[2016-07-02] MEDS: LOPERAMIDE HCL 2 MG CAP PO PRN (18:59)
[2016-07-02 20:00] VITALS: BP 129/74; PULSE 79; RESP 20; TEMP 96.2; O2SAT 96
[2016-07-02] MEDS: AQUAPHOR OINT 50 APPLIC/50 GM TUBE TOP SCH (21:00)
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
[2016-07-02 23:55] VITALS: BP 126/71; PULSE 75; RESP 20; TEMP 96.7; O2SAT 97
[2016-07-03] MEDS: LOPERAMIDE HCL 2 MG CAP PO PRN ×3 (05:58→21:27)
[2016-07-03] MEDS: CARISOPRODOL 350 MG TAB PO PRN ×2 (05:58→21:27)
[2016-07-03] MEDS: ENOXAPARIN SODIUM 60 MG/0.6 ML SYRINGE SQ SCH ×2 (05:58→16:00)
[2016-07-03 08:00] VITALS: BP 125/63; PULSE 76; RESP 19; TEMP 98.6; O2SAT 96
[2016-07-03] MEDS: CALCIUM/VITAMIN D 250 MG/125 U TAB PO SCH ×2 (09:48→21:27)
[2016-07-03] MEDS: MULTIVITAMINS/IRON/MINERALS CHEWABLE TAB CHEW SCH (09:48)
[2016-07-03] MEDS: buPROPion HCL 75 MG TAB PO SCH ×2 (09:48→21:27)
[2016-07-03] MEDS: FAMOTIDINE 20 MG TAB PO SCH ×2 (09:48→21:27)
[2016-07-03] MEDS: LACTOBACILLUS ACIDOPHILUS TAB PO SCH ×3 (09:48→18:00)
[2016-07-03] MEDS: METOPROLOL TARTRATE 25 MG TAB PO SCH ×2 (09:48→21:27)
[2016-07-03] MEDS: NYSTATIN 100,000 U/GM PWD 15 GM BTL TOPICAL SCH ×2 (09:50→21:00)
[2016-07-03] MEDS: LACTIC ACID (AMMONIUM LACTATE) 12% LOTION 225 GM BTL TOPICAL SCH ×2 (09:52→21:00)
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
[2016-07-03 12:00] VITALS: BP 126/73; PULSE 76; RESP 19; TEMP 98.1; O2SAT 97
[2016-07-03 13:43] VITALS: BP 130/80; PULSE 78; RESP 16
[2016-07-03 16:00] VITALS: BP 132/76; PULSE 83; RESP 20; TEMP 97.6; O2SAT 98
[2016-07-03 20:00] VITALS: BP 126/58; PULSE 81; RESP 20; TEMP 96.8; O2SAT 98
[2016-07-03] MEDS: AQUAPHOR OINT 50 APPLIC/50 GM TUBE TOP SCH (21:00)
[2016-07-04] VITALS: BP 125/59; PULSE 71; RESP 20; TEMP 97.8; O2SAT 98
[2016-07-04] MEDS: ENOXAPARIN SODIUM 60 MG/0.6 ML SYRINGE SQ SCH ×2 (06:05→16:11)
[2016-07-04] MEDS: LOPERAMIDE HCL 2 MG CAP PO PRN ×3 (06:05→20:42)
[2016-07-04 08:00] VITALS: BP 115/58; PULSE 85; RESP 20; TEMP 96.5; O2SAT 98
[2016-07-04] MEDS: NYSTATIN 100,000 U/GM PWD 15 GM BTL TOPICAL SCH ×2 (10:47→20:44)
[2016-07-04] MEDS: METOPROLOL TARTRATE 25 MG TAB PO SCH ×2 (10:47→20:43)
[2016-07-04] MEDS: CALCIUM/VITAMIN D 250 MG/125 U TAB PO SCH ×2 (10:47→20:42)
[2016-07-04] MEDS: LACTOBACILLUS ACIDOPHILUS TAB PO SCH ×3 (10:47→18:16)
[2016-07-04] MEDS: buPROPion HCL 75 MG TAB PO SCH ×2 (10:47→20:43)
[2016-07-04] MEDS: FAMOTIDINE 20 MG TAB PO SCH ×2 (10:47→20:43)
[2016-07-04] MEDS: MULTIVITAMINS/IRON/MINERALS CHEWABLE TAB CHEW SCH (10:47)
[2016-07-04] MEDS: LACTIC ACID (AMMONIUM LACTATE) 12% LOTION 225 GM BTL TOPICAL SCH ×2 (10:48→20:44)
[2016-07-04 12:00] VITALS: BP_SYST 112; BP_SYST 122; BP_DIAS 60; BP_DIAS 62; PULSE 66; PULSE 69; RESP 14; RESP 18; TEMP 97.4; TEMP 97.6; O2SAT 96
[2016-07-04] MEDS: CARISOPRODOL 350 MG TAB PO PRN ×2 (12:39→20:43)
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
[2016-07-04 20:31] VITALS: BP 117/67; PULSE 75; RESP 20; TEMP 97.9; O2SAT 97
[2016-07-04] MEDS: AQUAPHOR OINT 50 APPLIC/50 GM TUBE TOP SCH (20:44)
[2016-07-05] VITALS: BP 120/68; PULSE 74; RESP 20; TEMP 98; O2SAT 98
[2016-07-05] MEDS: ENOXAPARIN SODIUM 60 MG/0.6 ML SYRINGE SQ SCH ×2 (04:00→15:21)
[2016-07-05] MEDS: LOPERAMIDE HCL 2 MG CAP PO PRN ×3 (05:02→22:02)
[2016-07-05 08:00] VITALS: BP 110/58; PULSE 70; RESP 20; TEMP 97.8; O2SAT 99
[2016-07-05] MEDS: LACTOBACILLUS ACIDOPHILUS TAB PO SCH ×3 (11:12→18:00)
[2016-07-05] MEDS: METOPROLOL TARTRATE 25 MG TAB PO SCH ×2 (11:12→22:02)
[2016-07-05] MEDS: FAMOTIDINE 20 MG TAB PO SCH ×2 (11:12→22:02)
[2016-07-05] MEDS: CALCIUM/VITAMIN D 250 MG/125 U TAB PO SCH ×2 (11:12→22:02)
[2016-07-05] MEDS: buPROPion HCL 75 MG TAB PO SCH ×2 (11:12→22:02)
[2016-07-05] MEDS: CARISOPRODOL 350 MG TAB PO PRN ×2 (11:13→22:02)
[2016-07-05] MEDS: MULTIVITAMINS/IRON/MINERALS CHEWABLE TAB CHEW SCH (11:13)
[2016-07-05] MEDS: NYSTATIN 100,000 U/GM PWD 15 GM BTL TOPICAL SCH ×2 (11:15→21:00)
[2016-07-05] MEDS: LACTIC ACID (AMMONIUM LACTATE) 12% LOTION 225 GM BTL TOPICAL SCH ×2 (11:15→21:00)
[2016-07-05 12:00] VITALS: BP 128/71; PULSE 75; RESP 19; TEMP 97.5; O2SAT 97
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
[2016-07-05] MEDS: ONDANSETRON ODT 4 MG TAB PO PRN (15:20)
[2016-07-05 16:00] VITALS: BP 118/69; PULSE 88; RESP 20; TEMP 99.2; O2SAT 95
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
[2016-07-05 20:00] VITALS: BP 113/62; PULSE 97; RESP 17; TEMP 96.9; O2SAT 98
[2016-07-05] MEDS: AQUAPHOR OINT 50 APPLIC/50 GM TUBE TOP SCH (21:00)
[2016-07-06] MEDS: ENOXAPARIN SODIUM 60 MG/0.6 ML SYRINGE SQ SCH ×2 (04:18→17:02)
[2016-07-06 05:13] LABS: AUTOMATED NEUTROPHIL # 2.5 TH/MM3 (1.8-7.7); BASOPHIL % 0.4 % (0.0-2.0); EOSINOPHIL # 0.1 TH/MM3 (0-0.4); EOSINOPHIL % 1.7 % (0.0-4.0); HEMO FLAGS DIFF FINAL; LYMPH % 23.2 % (9.0-44.0); LYMPHOCYTE # 0.8 TH/MM3 (1.0-4.8); MEAN CELL VOLUME 75.5 FL (80.0-100.0); MEAN CORPUSCULAR HEMOGLOBIN 25.6 PG (27.0-34.0); MONO % 6.9 % (0.0-8.0); NEUT % 67.8 % (16.0-70.0); PLATELET COUNT 184 TH/MM3 (150-450); RED CELL DISTRIBUTION WIDTH 17.8 % (11.6-17.2); WHITE BLOOD COUNT 3.7 TH/MM3 (4.0-11.0)
[2016-07-06 05:39] LABS: ALT (GPT) 14 U/L (12-78); ANION GAP 7 MEQ/L (5-15); AST (GOT) 10 U/L (15-37); BICARBONATE 29.2 MEQ/L (21.0-32.0); BLOOD UREA NITROGEN 17 MG/DL (7-18); CHLORIDE 101 MEQ/L (98-107); GLOMERULAR FILTRATION RATE 77 ML/MIN (>89); SODIUM (NA) 137 MEQ/L (136-145)
[2016-07-06 05:42] LABS: ALKALINE PHOSPHATASE 71 U/L (45-117); TOTAL BILIRUBIN ADULT 0.5 MG/DL (0.2-1.0)
[2016-07-06 08:00] VITALS: BP 114/58; PULSE 77; RESP 20; TEMP 99.5; O2SAT 96
[2016-07-06] MEDS: buPROPion HCL 75 MG TAB PO SCH ×2 (08:46→21:06)
[2016-07-06] MEDS: FAMOTIDINE 20 MG TAB PO SCH ×2 (08:46→21:07)
[2016-07-06] MEDS: METOPROLOL TARTRATE 25 MG TAB PO SCH ×2 (08:46→21:07)
[2016-07-06] MEDS: MULTIVITAMINS/IRON/MINERALS CHEWABLE TAB CHEW SCH (08:46)
[2016-07-06] MEDS: CALCIUM/VITAMIN D 250 MG/125 U TAB PO SCH ×2 (08:46→21:07)
[2016-07-06] MEDS: LACTOBACILLUS ACIDOPHILUS TAB PO SCH ×3 (08:46→17:03)
[2016-07-06] MEDS: LACTIC ACID (AMMONIUM LACTATE) 12% LOTION 225 GM BTL TOPICAL SCH ×2 (08:50→21:06)
[2016-07-06] MEDS: NYSTATIN 100,000 U/GM PWD 15 GM BTL TOPICAL SCH ×2 (08:50→21:07)
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
[2016-07-06 12:00] VITALS: BP 107/58; PULSE 66; RESP 19; TEMP 96.9; O2SAT 97
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
[2016-07-06] MEDS: CARISOPRODOL 350 MG TAB PO PRN (13:41)
[2016-07-06] MEDS: LOPERAMIDE HCL 2 MG CAP PO PRN ×2 (13:41→21:07)
[2016-07-06 16:00] VITALS: BP 112/64; PULSE 67; RESP 18; TEMP 97.6; O2SAT 98
[2016-07-06 20:00] VITALS: BP 114/55; PULSE 84; RESP 17; TEMP 96.5; O2SAT 97
[2016-07-06] MEDS: AQUAPHOR OINT 50 APPLIC/50 GM TUBE TOP SCH (21:00)
[2016-07-07] MEDS: ENOXAPARIN SODIUM 60 MG/0.6 ML SYRINGE SQ SCH ×2 (04:27→16:15)
[2016-07-07 08:00] VITALS: BP 102/58; PULSE 69; RESP 16; TEMP 96.9; O2SAT 96
[2016-07-07] MEDS: FAMOTIDINE 20 MG TAB PO SCH ×2 (08:03→19:48)
[2016-07-07] MEDS: buPROPion HCL 75 MG TAB PO SCH ×2 (08:03→19:48)
[2016-07-07] MEDS: MULTIVITAMINS/IRON/MINERALS CHEWABLE TAB CHEW SCH (08:03)
[2016-07-07] MEDS: METOPROLOL TARTRATE 25 MG TAB PO SCH ×3 (08:03→19:48)
[2016-07-07] MEDS: LACTOBACILLUS ACIDOPHILUS TAB PO SCH ×3 (08:03→17:20)
[2016-07-07] MEDS: CALCIUM/VITAMIN D 250 MG/125 U TAB PO SCH ×2 (08:03→19:48)
[2016-07-07] MEDS: NYSTATIN 100,000 U/GM PWD 15 GM BTL TOPICAL SCH ×2 (08:04→19:49)
[2016-07-07] MEDS: LACTIC ACID (AMMONIUM LACTATE) 12% LOTION 225 GM BTL TOPICAL SCH ×2 (08:04→19:48)
[2016-07-07 12:00] VITALS: BP 118/66; PULSE 74; RESP 16; TEMP 97.3; O2SAT 97
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
[2016-07-07] MEDS: CARISOPRODOL 350 MG TAB PO PRN ×2 (12:40→23:11)
[2016-07-07] MEDS: LOPERAMIDE HCL 2 MG CAP PO PRN ×2 (12:41→23:11)
[2016-07-07 16:00] VITALS: BP 113/71; PULSE 70; RESP 17; TEMP 96.8; O2SAT 99
[2016-07-07] MEDS: AQUAPHOR OINT 50 APPLIC/50 GM TUBE TOP SCH (19:48)
[2016-07-07 20:00] VITALS: BP 120/68; PULSE 91; RESP 18; TEMP 97.6; O2SAT 97
[2016-07-08] VITALS: BP 131/78; PULSE 67; RESP 16; TEMP 97.6; O2SAT 96
[2016-07-08] MEDS: ENOXAPARIN SODIUM 60 MG/0.6 ML SYRINGE SQ SCH ×2 (04:57→16:02)
[2016-07-08 08:00] VITALS: BP 123/62; PULSE 67; RESP 18; TEMP 98.6; O2SAT 95
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
[2016-07-08] MEDS: METOPROLOL TARTRATE 25 MG TAB PO SCH ×2 (08:30→20:11)
[2016-07-08] MEDS: FAMOTIDINE 20 MG TAB PO SCH ×2 (08:30→20:11)
[2016-07-08] MEDS: LACTOBACILLUS ACIDOPHILUS TAB PO SCH ×3 (08:30→16:00)
[2016-07-08] MEDS: MULTIVITAMINS/IRON/MINERALS CHEWABLE TAB CHEW SCH (08:31)
[2016-07-08] MEDS: CALCIUM/VITAMIN D 250 MG/125 U TAB PO SCH ×2 (08:31→20:11)
[2016-07-08] MEDS: buPROPion HCL 75 MG TAB PO SCH ×2 (08:31→20:11)
[2016-07-08] MEDS: LACTIC ACID (AMMONIUM LACTATE) 12% LOTION 225 GM BTL TOPICAL SCH ×2 (08:32→20:12)
[2016-07-08] MEDS: NYSTATIN 100,000 U/GM PWD 15 GM BTL TOPICAL SCH ×2 (08:32→20:12)
[2016-07-08 12:00] VITALS: BP 127/68; PULSE 72; RESP 19; TEMP 98.2; O2SAT 97
[2016-07-08] MEDS: LOPERAMIDE HCL 2 MG CAP PO PRN ×2 (15:59→22:11)
[2016-07-08] MEDS: CARISOPRODOL 350 MG TAB PO PRN ×2 (16:00→22:11)
[2016-07-08 20:00] VITALS: BP 124/76; PULSE 66; RESP 19; TEMP 98.7; O2SAT 96
[2016-07-08] MEDS: AQUAPHOR OINT 50 APPLIC/50 GM TUBE TOP SCH (20:11)
[2016-07-09] VITALS: BP 115/66; PULSE 73; RESP 19; TEMP 96.7; O2SAT 97
[2016-07-09] MEDS: ENOXAPARIN SODIUM 60 MG/0.6 ML SYRINGE SQ SCH ×2 (02:48→16:12)
[2016-07-09 08:00] VITALS: BP 116/56; PULSE 70; RESP 16; TEMP 97.4; O2SAT 95
[2016-07-09] MEDS: MULTIVITAMINS/IRON/MINERALS CHEWABLE TAB CHEW SCH (08:41)
[2016-07-09] MEDS: FAMOTIDINE 20 MG TAB PO SCH ×2 (08:41→21:09)
[2016-07-09] MEDS: CALCIUM/VITAMIN D 250 MG/125 U TAB PO SCH ×2 (08:41→21:09)
[2016-07-09] MEDS: buPROPion HCL 75 MG TAB PO SCH ×2 (08:41→21:09)
[2016-07-09] MEDS: ERGOCALCIFEROL (VIT D2) 50,000 UNIT CAP PO SCH (08:41)
[2016-07-09] MEDS: METOPROLOL TARTRATE 25 MG TAB PO SCH ×2 (08:41→21:09)
[2016-07-09] MEDS: LACTOBACILLUS ACIDOPHILUS TAB PO SCH ×3 (08:41→16:12)
[2016-07-09] MEDS: CARISOPRODOL 350 MG TAB PO PRN ×2 (08:41→21:09)
[2016-07-09] MEDS: LOPERAMIDE HCL 2 MG CAP PO PRN ×2 (08:42→21:09)
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
[2016-07-09] MEDS: LACTIC ACID (AMMONIUM LACTATE) 12% LOTION 225 GM BTL TOPICAL SCH ×2 (09:00→21:00)
[2016-07-09] MEDS: NYSTATIN 100,000 U/GM PWD 15 GM BTL TOPICAL SCH ×2 (09:05→21:00)
[2016-07-09 12:00] VITALS: BP 130/78; PULSE 68; RESP 17; TEMP 98; O2SAT 99
[2016-07-09 16:00] VITALS: BP 118/66; PULSE 77; RESP 17; TEMP 97.1; O2SAT 99
[2016-07-09 20:00] VITALS: BP 124/65; PULSE 77; RESP 19; TEMP 97.5; O2SAT 98
[2016-07-09] MEDS: AQUAPHOR OINT 50 APPLIC/50 GM TUBE TOP SCH (21:00)
[2016-07-10] VITALS: BP 125/66; PULSE 86; RESP 18; TEMP 98; O2SAT 96
[2016-07-10] MEDS: ENOXAPARIN SODIUM 60 MG/0.6 ML SYRINGE SQ SCH ×2 (04:17→16:13)
[2016-07-10] MEDS: LOPERAMIDE HCL 2 MG CAP PO PRN ×3 (05:33→23:46)
[2016-07-10] MEDS: CARISOPRODOL 350 MG TAB PO PRN ×3 (05:33→23:46)
[2016-07-10 08:00] VITALS: BP 112/55; PULSE 67; RESP 16; TEMP 97; O2SAT 95
[2016-07-10] MEDS: LACTOBACILLUS ACIDOPHILUS TAB PO SCH ×3 (08:46→16:13)
[2016-07-10] MEDS: LACTIC ACID (AMMONIUM LACTATE) 12% LOTION 225 GM BTL TOPICAL SCH ×2 (08:46→20:09)
[2016-07-10] MEDS: METOPROLOL TARTRATE 25 MG TAB PO SCH ×2 (08:46→20:09)
[2016-07-10] MEDS: FAMOTIDINE 20 MG TAB PO SCH ×2 (08:46→20:09)
[2016-07-10] MEDS: CALCIUM/VITAMIN D 250 MG/125 U TAB PO SCH ×2 (08:46→20:09)
[2016-07-10] MEDS: buPROPion HCL 75 MG TAB PO SCH ×2 (08:46→20:09)
[2016-07-10] MEDS: MULTIVITAMINS/IRON/MINERALS CHEWABLE TAB CHEW SCH (08:46)
[2016-07-10] MEDS: NYSTATIN 100,000 U/GM PWD 15 GM BTL TOPICAL SCH ×2 (08:46→20:09)
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
[2016-07-10 12:00] VITALS: BP 114/60; PULSE 65; RESP 16; TEMP 97.8; O2SAT 94
[2016-07-10 20:00] VITALS: BP 129/78; PULSE 70; RESP 19; TEMP 96.9; O2SAT 97
[2016-07-10] MEDS: AQUAPHOR OINT 50 APPLIC/50 GM TUBE TOP SCH (20:09)
[2016-07-11 00:08] VITALS: BP 128/62; PULSE 71; RESP 19; TEMP 98.1; O2SAT 97
[2016-07-11] MEDS: ENOXAPARIN SODIUM 60 MG/0.6 ML SYRINGE SQ SCH ×2 (04:07→16:17)
[2016-07-11] MEDS: LOPERAMIDE HCL 2 MG CAP PO PRN (05:37)
[2016-07-11 08:00] VITALS: BP 115/55; PULSE 61; RESP 17; TEMP 96.5; O2SAT 95
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
[2016-07-11] MEDS: METOPROLOL TARTRATE 25 MG TAB PO SCH ×2 (09:00→22:32)
[2016-07-11] MEDS: LACTOBACILLUS ACIDOPHILUS TAB PO SCH ×3 (09:55→16:16)
[2016-07-11] MEDS: FAMOTIDINE 20 MG TAB PO SCH ×2 (09:55→22:31)
[2016-07-11] MEDS: CALCIUM/VITAMIN D 250 MG/125 U TAB PO SCH ×2 (09:55→22:31)
[2016-07-11] MEDS: buPROPion HCL 75 MG TAB PO SCH (09:55)
[2016-07-11] MEDS: MULTIVITAMINS/IRON/MINERALS CHEWABLE TAB CHEW SCH (09:55)
[2016-07-11] MEDS: NYSTATIN 100,000 U/GM PWD 15 GM BTL TOPICAL SCH ×2 (09:56→21:00)
[2016-07-11] MEDS: LACTIC ACID (AMMONIUM LACTATE) 12% LOTION 225 GM BTL TOPICAL SCH ×2 (09:58→21:00)
[2016-07-11] MEDS: CARISOPRODOL 350 MG TAB PO PRN ×2 (11:47→22:31)
[2016-07-11 12:00] VITALS: BP 117/60; PULSE 78; RESP 18; TEMP 97.3; O2SAT 97
--- NOTE | 2016-07-11 13:55 | HHI.PYPN ---
Subjective Remarks On psychiatric reevaluation today patient is found calm, cooperative, he says that he has been experiencing frequent anxiety during the day, especially when he is going to perform activities for physical rehabilitation. Patient reports difficulty sleeping at night. Episodes of depression and sadness, but he denies suicidal and homicidal ideation, he denies visual and auditory hallucinations. Patient is oriented 3, attention deficit, no fluctuation of consciousness. No agitation or aggressive behavior present. Review of Systems Other No somatic complaints Objective Alert: Yes [place]: Person, Date, Situation Mood: Anxious Affect: Other (irritable) Memory Intact: Immediate, Recent, Remote Hallucinations: Other (he denies) Delusions: No Delusion Type: Other (he denies) Suicidal: Ideation (he denies) Homicidal: Ideation (he denies) Insight/Judgment Fair Vitals/IOs Vital Signs Date Time Temp Pulse Resp B/P Pulse Ox O2 Delivery O2 Flow Rate FiO2 07/11/16 12:00 97.3 78 18 117/60 97 Intake and Output 07/10/16 07/10/16 07/11/16 08:00 16:00 00:00 Intake Total 360 ml 360 ml 360 ml Output Total 1000 ml 1450 ml 600 ml Balance -640 ml -1090 ml -240 ml Assessment & Plan Problem List: (1) Adjustment disorder with depressed mood ICD Code: F43.21 (2) Anxiety disorder, unspecified Assessment & Plan: Patient reports episodic anxiety, mostly secondary to physical activity during the day. Also reports increased sadness. Will increase Wellbutrin to 100 mg twice a day to help with mood. Will add hydroxyzine 25 mg every 8 hours to control anxiety. ICD Code: F41.9 Assessment & Plan Estimated LOS: days Justification for Cont. Inpt. Patient does not meet criteria for psychiatric admission at this moment Mak oRper MD July 11, 2016 13:55
[2016-07-11] MEDS: hydrOXYzine HCL 25 MG TAB PO SCH ×2 (14:49→22:31)
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
[2016-07-11 16:00] VITALS: BP 124/76; PULSE 65; RESP 18; TEMP 96.8; O2SAT 99
[2016-07-11 20:00] VITALS: BP 115/64; PULSE 75; RESP 18; TEMP 97.3; O2SAT 98
[2016-07-11] MEDS: AQUAPHOR OINT 50 APPLIC/50 GM TUBE TOP SCH (21:00)
[2016-07-11] MEDS: buPROPion HCL 100 MG TAB PO SCH (22:31)
[2016-07-12] VITALS: BP 126/71; PULSE 75; RESP 18; TEMP 97.6; O2SAT 97
[2016-07-12] MEDS: hydrOXYzine HCL 25 MG TAB PO SCH ×3 (06:00→21:09)
[2016-07-12] MEDS: ENOXAPARIN SODIUM 60 MG/0.6 ML SYRINGE SQ SCH ×2 (06:25→18:18)
[2016-07-12 06:49] LABS: AUTOMATED NEUTROPHIL # 3.3 TH/MM3 (1.8-7.7); BASOPHIL % 0.6 % (0.0-2.0); EOSINOPHIL # 0.3 TH/MM3 (0-0.4); EOSINOPHIL % 5.3 % (0.0-4.0); HEMO FLAGS DIFF FINAL; LYMPH % 30.5 % (9.0-44.0); LYMPHOCYTE # 1.8 TH/MM3 (1.0-4.8); MEAN CELL VOLUME 75.2 FL (80.0-100.0); MEAN CORPUSCULAR HEMOGLOBIN 25.2 PG (27.0-34.0); MEAN CORPUSCULAR HGB CONC 33.6 % (32.0-36.0); MONO % 6.4 % (0.0-8.0); NEUT % 57.2 % (16.0-70.0); PLATELET COUNT 212 TH/MM3 (150-450); RED BLOOD COUNT 4.26 MIL/MM3 (4.50-5.90); RED CELL DISTRIBUTION WIDTH 17.6 % (11.6-17.2); WHITE BLOOD COUNT 5.8 TH/MM3 (4.0-11.0)
[2016-07-12 07:16] LABS: BICARBONATE 28.4 MEQ/L (21.0-32.0); POTASSIUM 3.7 MEQ/L (3.5-5.1)
[2016-07-12 08:00] VITALS: BP 132/72; PULSE 77; RESP 20; TEMP 97.6; O2SAT 98
[2016-07-12] MEDS: FAMOTIDINE 20 MG TAB PO SCH ×2 (09:29→21:09)
[2016-07-12] MEDS: MULTIVITAMINS/IRON/MINERALS CHEWABLE TAB CHEW SCH (09:29)
[2016-07-12] MEDS: METOPROLOL TARTRATE 25 MG TAB PO SCH ×2 (09:29→21:09)
[2016-07-12] MEDS: buPROPion HCL 100 MG TAB PO SCH ×2 (09:29→21:09)
[2016-07-12] MEDS: CALCIUM/VITAMIN D 250 MG/125 U TAB PO SCH ×2 (09:29→21:09)
[2016-07-12] MEDS: LACTOBACILLUS ACIDOPHILUS TAB PO SCH ×3 (09:29→18:18)
[2016-07-12] MEDS: NYSTATIN 100,000 U/GM PWD 15 GM BTL TOPICAL SCH ×2 (09:29→21:00)
[2016-07-12] MEDS: LACTIC ACID (AMMONIUM LACTATE) 12% LOTION 225 GM BTL TOPICAL SCH ×2 (09:30→21:00)
[2016-07-12] MEDS: DIPHENOXYLATE/ATROPINE 2.5 MG/0.025 MG TAB PO SCH ×3 (09:32→21:09)
[2016-07-12] MEDS: CARISOPRODOL 350 MG TAB PO PRN ×2 (09:35→21:09)
[2016-07-12 12:00] VITALS: BP 116/57; PULSE 67; RESP 20; TEMP 98.7; O2SAT 96
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
[2016-07-12 16:00] VITALS: BP 121/58; PULSE 61; RESP 19; TEMP 97.7; O2SAT 96
[2016-07-12 20:00] VITALS: BP 127/58; PULSE 60; RESP 20; TEMP 97.3; O2SAT 97
[2016-07-12] MEDS: AQUAPHOR OINT 50 APPLIC/50 GM TUBE TOP SCH (21:00)
[2016-07-13] VITALS: BP 122/63; PULSE 70; RESP 20; TEMP 97.8; O2SAT 96
[2016-07-13] MEDS: ENOXAPARIN SODIUM 60 MG/0.6 ML SYRINGE SQ SCH ×2 (03:21→14:19)
[2016-07-13] MEDS: DIPHENOXYLATE/ATROPINE 2.5 MG/0.025 MG TAB PO SCH ×4 (03:21→20:36)
[2016-07-13] MEDS: hydrOXYzine HCL 25 MG TAB PO SCH ×3 (05:38→20:36)
[2016-07-13] MEDS: CARISOPRODOL 350 MG TAB PO PRN ×2 (05:38→14:16)
[2016-07-13 06:03] LABS: AUTOMATED NEUTROPHIL # 3.9 TH/MM3 (1.8-7.7); BASOPHIL % 0.4 % (0.0-2.0); EOSINOPHIL # 0.3 TH/MM3 (0-0.4); EOSINOPHIL % 4.4 % (0.0-4.0); HEMATOCRIT 33.6 % (39.0-51.0); HEMO FLAGS DIFF FINAL; LYMPH % 26.1 % (9.0-44.0); LYMPHOCYTE # 1.6 TH/MM3 (1.0-4.8); MEAN CORPUSCULAR HEMOGLOBIN 24.4 PG (27.0-34.0); MEAN CORPUSCULAR HGB CONC 32.2 % (32.0-36.0); MONO % 6.7 % (0.0-8.0); NEUT % 62.4 % (16.0-70.0); PLATELET COUNT 209 TH/MM3 (150-450); RED BLOOD COUNT 4.42 MIL/MM3 (4.50-5.90); RED CELL DISTRIBUTION WIDTH 17.6 % (11.6-17.2); WHITE BLOOD COUNT 6.2 TH/MM3 (4.0-11.0)
[2016-07-13 06:25] LABS: TRANSFERRIN IRON PROFILE 159 MG/DL (200-360)
[2016-07-13 08:00] VITALS: BP 120/67; PULSE 67; RESP 16; TEMP 96.3; O2SAT 98
[2016-07-13] MEDS: ASCORBIC ACID 500 MG TAB PO SCH ×3 (09:00→18:12)
[2016-07-13] MEDS: FERROUS SULFATE 325 MG (65 MG ELEMENTAL IRON) TAB PO SCH ×3 (09:00→18:12)
[2016-07-13] MEDS: METOPROLOL TARTRATE 25 MG TAB PO SCH ×2 (09:00→20:36)
[2016-07-13] MEDS: buPROPion HCL 100 MG TAB PO SCH ×2 (09:11→20:36)
[2016-07-13] MEDS: MULTIVITAMINS/IRON/MINERALS CHEWABLE TAB CHEW SCH (09:11)
[2016-07-13] MEDS: LACTOBACILLUS ACIDOPHILUS TAB PO SCH ×3 (09:11→18:11)
[2016-07-13] MEDS: FAMOTIDINE 20 MG TAB PO SCH ×2 (09:11→20:36)
[2016-07-13] MEDS: CALCIUM/VITAMIN D 250 MG/125 U TAB PO SCH ×2 (09:11→20:36)
[2016-07-13] MEDS: NYSTATIN 100,000 U/GM PWD 15 GM BTL TOPICAL SCH ×2 (09:12→20:38)
[2016-07-13] MEDS: LACTIC ACID (AMMONIUM LACTATE) 12% LOTION 225 GM BTL TOPICAL SCH ×2 (09:12→20:38)
[2016-07-13 12:00] VITALS: BP 109/65; PULSE 56; RESP 16; TEMP 96.4; O2SAT 97
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
[2016-07-13 16:00] VITALS: BP 116/63; PULSE 60; RESP 16; TEMP 96.8; O2SAT 100
[2016-07-13] MEDS: PSYLLIUM FIBER SF/GF 6 GM POWD PKT PO SCH (18:00)
[2016-07-13] MEDS: ONDANSETRON ODT 4 MG TAB PO PRN (18:13)
[2016-07-13 20:00] VITALS: BP 135/81; PULSE 64; RESP 20; TEMP 97.2; O2SAT 95
[2016-07-13] MEDS: AQUAPHOR OINT 50 APPLIC/50 GM TUBE TOP SCH (20:38)
[2016-07-14] VITALS: BP 124/71; PULSE 77; RESP 20; TEMP 97.3; O2SAT 97
[2016-07-14] MEDS: CARISOPRODOL 350 MG TAB PO PRN ×2 (05:04→17:21)
[2016-07-14] MEDS: DIPHENOXYLATE/ATROPINE 2.5 MG/0.025 MG TAB PO SCH ×4 (05:04→21:10)
[2016-07-14] MEDS: ENOXAPARIN SODIUM 60 MG/0.6 ML SYRINGE SQ SCH ×2 (05:04→17:22)
[2016-07-14] MEDS: hydrOXYzine HCL 25 MG TAB PO SCH ×3 (05:04→21:10)
[2016-07-14 08:00] VITALS: BP 118/66; PULSE 63; RESP 17; TEMP 96.6; O2SAT 95
[2016-07-14] MEDS: PSYLLIUM FIBER SF/GF 6 GM POWD PKT PO SCH ×3 (09:00→17:22)
[2016-07-14] MEDS: METOPROLOL TARTRATE 25 MG TAB PO SCH ×2 (09:00→21:10)
[2016-07-14] MEDS: CALCIUM/VITAMIN D 250 MG/125 U TAB PO SCH ×2 (11:29→21:10)
[2016-07-14] MEDS: LACTOBACILLUS ACIDOPHILUS TAB PO SCH ×3 (11:29→17:22)
[2016-07-14] MEDS: FERROUS SULFATE 325 MG (65 MG ELEMENTAL IRON) TAB PO SCH ×3 (11:29→17:22)
[2016-07-14] MEDS: FAMOTIDINE 20 MG TAB PO SCH ×2 (11:29→21:10)
[2016-07-14] MEDS: buPROPion HCL 100 MG TAB PO SCH ×2 (11:29→21:10)
[2016-07-14] MEDS: MULTIVITAMINS/IRON/MINERALS CHEWABLE TAB CHEW SCH (11:29)
[2016-07-14] MEDS: ASCORBIC ACID 500 MG TAB PO SCH ×3 (11:29→17:22)
[2016-07-14] MEDS: NYSTATIN 100,000 U/GM PWD 15 GM BTL TOPICAL SCH ×2 (11:30→21:11)
[2016-07-14] MEDS: LACTIC ACID (AMMONIUM LACTATE) 12% LOTION 225 GM BTL TOPICAL SCH ×2 (11:30→21:00)
[2016-07-14 12:00] VITALS: BP 110/76; PULSE 86; RESP 16; TEMP 96.9; O2SAT 98
[2016-07-14 16:00] VITALS: BP 125/61; PULSE 72; RESP 17; TEMP 96.4; O2SAT 97
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
[2016-07-14 20:00] VITALS: BP 122/64; PULSE 89; RESP 17; TEMP 96.2; O2SAT 96
[2016-07-14] MEDS: AQUAPHOR OINT 50 APPLIC/50 GM TUBE TOP SCH (21:00)
[2016-07-15] MEDS: DIPHENOXYLATE/ATROPINE 2.5 MG/0.025 MG TAB PO SCH ×4 (04:44→22:01)
[2016-07-15] MEDS: hydrOXYzine HCL 25 MG TAB PO SCH ×3 (04:44→22:01)
[2016-07-15] MEDS: ENOXAPARIN SODIUM 60 MG/0.6 ML SYRINGE SQ SCH ×2 (04:44→16:43)
[2016-07-15 08:00] VITALS: BP 138/76; PULSE 103; RESP 20; TEMP 99.4; O2SAT 97
[2016-07-15] MEDS: PSYLLIUM FIBER SF/GF 6 GM POWD PKT PO SCH ×3 (09:00→16:07)
[2016-07-15] MEDS: ASCORBIC ACID 500 MG TAB PO SCH ×3 (10:51→16:43)
[2016-07-15] MEDS: MULTIVITAMINS/IRON/MINERALS CHEWABLE TAB CHEW SCH (10:51)
[2016-07-15] MEDS: LACTOBACILLUS ACIDOPHILUS TAB PO SCH ×3 (10:51→16:43)
[2016-07-15] MEDS: buPROPion HCL 100 MG TAB PO SCH ×2 (10:51→22:00)
[2016-07-15] MEDS: FERROUS SULFATE 325 MG (65 MG ELEMENTAL IRON) TAB PO SCH ×3 (10:52→16:43)
[2016-07-15] MEDS: METOPROLOL TARTRATE 25 MG TAB PO SCH ×2 (10:52→22:01)
[2016-07-15] MEDS: CALCIUM/VITAMIN D 250 MG/125 U TAB PO SCH ×2 (10:52→22:01)
[2016-07-15] MEDS: FAMOTIDINE 20 MG TAB PO SCH ×2 (10:52→22:00)
[2016-07-15] MEDS: LACTIC ACID (AMMONIUM LACTATE) 12% LOTION 225 GM BTL TOPICAL SCH ×2 (10:53→21:00)
[2016-07-15] MEDS: NYSTATIN 100,000 U/GM PWD 15 GM BTL TOPICAL SCH ×2 (10:53→21:00)
[2016-07-15 12:00] VITALS: BP 130/87; PULSE 89; RESP 20; TEMP 97.4; O2SAT 96
[2016-07-15] MEDS: CARISOPRODOL 350 MG TAB PO PRN ×2 (13:45→22:00)
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
[2016-07-15 16:00] VITALS: BP 129/71; PULSE 69; RESP 19; TEMP 98; O2SAT 98
[2016-07-15 20:00] VITALS: BP 117/61; PULSE 101; RESP 17; TEMP 98.5; O2SAT 99
[2016-07-15] MEDS: AQUAPHOR OINT 50 APPLIC/50 GM TUBE TOP SCH (21:00)
[2016-07-15 21:38] LABS: C. DIFF EPI 027 PRESUMPTIVE NEGATIVE (NEGATIVE)
[2016-07-16] MEDS: ENOXAPARIN SODIUM 60 MG/0.6 ML SYRINGE SQ SCH ×2 (03:36→14:50)
[2016-07-16] MEDS: DIPHENOXYLATE/ATROPINE 2.5 MG/0.025 MG TAB PO SCH ×4 (03:37→20:35)
[2016-07-16] MEDS: hydrOXYzine HCL 25 MG TAB PO SCH ×3 (05:47→22:04)
[2016-07-16 08:00] VITALS: BP 104/58; PULSE 68; RESP 16; TEMP 97.8; O2SAT 98
[2016-07-16] MEDS: NYSTATIN 100,000 U/GM PWD 15 GM BTL TOPICAL SCH ×2 (09:00→20:37)
[2016-07-16] MEDS: PSYLLIUM FIBER SF/GF 6 GM POWD PKT PO SCH ×3 (09:00→18:00)
[2016-07-16] MEDS: LACTIC ACID (AMMONIUM LACTATE) 12% LOTION 225 GM BTL TOPICAL SCH ×2 (09:00→20:37)
[2016-07-16] MEDS: CARISOPRODOL 350 MG TAB PO PRN ×2 (10:26→20:35)
[2016-07-16] MEDS: LACTOBACILLUS ACIDOPHILUS TAB PO SCH ×3 (10:27→18:23)
[2016-07-16] MEDS: FAMOTIDINE 20 MG TAB PO SCH ×2 (10:27→20:35)
[2016-07-16] MEDS: ASCORBIC ACID 500 MG TAB PO SCH ×3 (10:27→18:23)
[2016-07-16] MEDS: MULTIVITAMINS/IRON/MINERALS CHEWABLE TAB CHEW SCH (10:27)
[2016-07-16] MEDS: buPROPion HCL 100 MG TAB PO SCH ×2 (10:27→20:35)
[2016-07-16] MEDS: ERGOCALCIFEROL (VIT D2) 50,000 UNIT CAP PO SCH (10:27)
[2016-07-16] MEDS: METOPROLOL TARTRATE 25 MG TAB PO SCH ×2 (10:27→20:35)
[2016-07-16] MEDS: CALCIUM/VITAMIN D 250 MG/125 U TAB PO SCH ×2 (10:28→20:35)
[2016-07-16] MEDS: FERROUS SULFATE 325 MG (65 MG ELEMENTAL IRON) TAB PO SCH ×3 (10:28→18:23)
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
[2016-07-16 20:00] VITALS: BP 124/59; PULSE 80; RESP 18; TEMP 97.1; O2SAT 98
[2016-07-16] MEDS: AQUAPHOR OINT 50 APPLIC/50 GM TUBE TOP SCH (20:37)
[2016-07-17 00:01] VITALS: BP 124/57; PULSE 79; RESP 18; TEMP 98.6; O2SAT 98
[2016-07-17] MEDS: DIPHENOXYLATE/ATROPINE 2.5 MG/0.025 MG TAB PO SCH ×4 (02:52→20:03)
[2016-07-17] MEDS: ENOXAPARIN SODIUM 60 MG/0.6 ML SYRINGE SQ SCH ×2 (02:53→15:24)
[2016-07-17] MEDS: hydrOXYzine HCL 25 MG TAB PO SCH ×3 (05:35→21:34)
[2016-07-17 08:00] VITALS: BP 123/73; PULSE 68; RESP 17; TEMP 96.9; O2SAT 96
[2016-07-17] MEDS: PSYLLIUM FIBER SF/GF 6 GM POWD PKT PO SCH ×3 (09:00→17:23)
[2016-07-17] MEDS: FERROUS SULFATE 325 MG (65 MG ELEMENTAL IRON) TAB PO SCH ×3 (11:11→18:01)
[2016-07-17] MEDS: buPROPion HCL 100 MG TAB PO SCH ×2 (11:11→20:02)
[2016-07-17] MEDS: MULTIVITAMINS/IRON/MINERALS CHEWABLE TAB CHEW SCH (11:12)
[2016-07-17] MEDS: FAMOTIDINE 20 MG TAB PO SCH ×2 (11:12→20:03)
[2016-07-17] MEDS: CALCIUM/VITAMIN D 250 MG/125 U TAB PO SCH ×2 (11:12→20:03)
[2016-07-17] MEDS: METOPROLOL TARTRATE 25 MG TAB PO SCH ×2 (11:12→20:03)
[2016-07-17] MEDS: LACTOBACILLUS ACIDOPHILUS TAB PO SCH ×3 (11:12→18:02)
[2016-07-17] MEDS: ASCORBIC ACID 500 MG TAB PO SCH ×3 (11:12→18:01)
[2016-07-17] MEDS: NYSTATIN 100,000 U/GM PWD 15 GM BTL TOPICAL SCH ×2 (11:13→20:07)
[2016-07-17] MEDS: LACTIC ACID (AMMONIUM LACTATE) 12% LOTION 225 GM BTL TOPICAL SCH ×2 (11:13→20:06)
[2016-07-17] MEDS: CARISOPRODOL 350 MG TAB PO PRN ×2 (11:16→20:03)
[2016-07-17 12:00] VITALS: BP 126/78; PULSE 73; RESP 16; TEMP 97.1; O2SAT 99
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
[2016-07-17 16:00] VITALS: BP 128/74; PULSE 80; RESP 17; TEMP 96.4; O2SAT 97
[2016-07-17 17:18] LABS: C. DIFF EPI 027 PRESUMPTIVE NEGATIVE (NEGATIVE)
[2016-07-17 20:00] VITALS: BP 119/56; PULSE 85; RESP 20; TEMP 96.5; O2SAT 97
[2016-07-17] MEDS: CHOLESTYRAMINE 4 GM PACKET PO SCH (20:03)
[2016-07-17] MEDS: AQUAPHOR OINT 50 APPLIC/50 GM TUBE TOP SCH (20:06)
[2016-07-18] VITALS: BP 129/60; PULSE 81; RESP 20; TEMP 97.3; O2SAT 98
[2016-07-18] MEDS: ENOXAPARIN SODIUM 60 MG/0.6 ML SYRINGE SQ SCH ×2 (03:24→17:34)
[2016-07-18] MEDS: DIPHENOXYLATE/ATROPINE 2.5 MG/0.025 MG TAB PO SCH ×4 (03:26→21:00)
[2016-07-18] MEDS: hydrOXYzine HCL 25 MG TAB PO SCH ×3 (05:24→21:39)
[2016-07-18 08:00] VITALS: BP 106/53; PULSE 55; RESP 14; TEMP 98; O2SAT 98
[2016-07-18] MEDS: CHOLESTYRAMINE 4 GM PACKET PO SCH ×2 (08:54→21:00)
[2016-07-18] MEDS: buPROPion HCL 100 MG TAB PO SCH ×2 (08:54→21:40)
[2016-07-18] MEDS: FAMOTIDINE 20 MG TAB PO SCH ×2 (08:54→21:40)
[2016-07-18] MEDS: ASCORBIC ACID 500 MG TAB PO SCH ×3 (08:54→17:34)
[2016-07-18] MEDS: LACTOBACILLUS ACIDOPHILUS TAB PO SCH ×3 (08:54→17:34)
[2016-07-18] MEDS: FERROUS SULFATE 325 MG (65 MG ELEMENTAL IRON) TAB PO SCH ×3 (08:54→17:34)
[2016-07-18] MEDS: METOPROLOL TARTRATE 25 MG TAB PO SCH ×2 (08:54→21:40)
[2016-07-18] MEDS: CALCIUM/VITAMIN D 250 MG/125 U TAB PO SCH ×2 (08:54→21:40)
[2016-07-18] MEDS: MULTIVITAMINS/IRON/MINERALS CHEWABLE TAB CHEW SCH (08:54)
[2016-07-18] MEDS: PSYLLIUM FIBER SF/GF 6 GM POWD PKT PO SCH ×3 (08:54→17:34)
[2016-07-18] MEDS: LACTIC ACID (AMMONIUM LACTATE) 12% LOTION 225 GM BTL TOPICAL SCH ×2 (08:55→21:00)
[2016-07-18] MEDS: NYSTATIN 100,000 U/GM PWD 15 GM BTL TOPICAL SCH ×2 (08:55→21:00)
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
[2016-07-18 09:56] LABS: AUTOMATED NEUTROPHIL # 3.7 TH/MM3 (1.8-7.7); BASOPHIL # 0.1 TH/MM3 (0-0.2); BASOPHIL % 1.1 % (0.0-2.0); EOSINOPHIL # 0.2 TH/MM3 (0-0.4); EOSINOPHIL % 3.3 % (0.0-4.0); HEMATOCRIT 31.4 % (39.0-51.0); HEMO FLAGS DIFF FINAL; LYMPH % 24.6 % (9.0-44.0); LYMPHOCYTE # 1.4 TH/MM3 (1.0-4.8); MEAN CORPUSCULAR HEMOGLOBIN 24.5 PG (27.0-34.0); MEAN CORPUSCULAR HGB CONC 32.7 % (32.0-36.0); MONO % 7.6 % (0.0-8.0); NEUT % 63.4 % (16.0-70.0); PLATELET COUNT 217 TH/MM3 (150-450); RED BLOOD COUNT 4.19 MIL/MM3 (4.50-5.90); RED CELL DISTRIBUTION WIDTH 17.8 % (11.6-17.2); WHITE BLOOD COUNT 5.8 TH/MM3 (4.0-11.0)
[2016-07-18 12:00] VITALS: BP 119/63; PULSE 62; RESP 16; TEMP 97.1; O2SAT 97
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
[2016-07-18] MEDS: CARISOPRODOL 350 MG TAB PO PRN (14:22)
[2016-07-18 16:00] VITALS: BP 123/64; PULSE 71; RESP 18; TEMP 95.5; O2SAT 96
[2016-07-18 20:00] VITALS: BP 125/59; PULSE 79; RESP 20; TEMP 97.9; O2SAT 98
[2016-07-18] MEDS: AQUAPHOR OINT 50 APPLIC/50 GM TUBE TOP SCH (21:00)
[2016-07-19] VITALS: BP 126/68; PULSE 79; RESP 20; TEMP 96.2; O2SAT 97
[2016-07-19] MEDS: CARISOPRODOL 350 MG TAB PO PRN ×3 (00:29→21:20)
[2016-07-19] MEDS: DIPHENOXYLATE/ATROPINE 2.5 MG/0.025 MG TAB PO SCH ×4 (03:00→21:21)
[2016-07-19] MEDS: ENOXAPARIN SODIUM 60 MG/0.6 ML SYRINGE SQ SCH ×2 (06:15→15:09)
[2016-07-19] MEDS: hydrOXYzine HCL 25 MG TAB PO SCH ×3 (06:15→21:21)
[2016-07-19 08:00] VITALS: BP 111/55; PULSE 70; RESP 18; TEMP 97.1; O2SAT 100
[2016-07-19] MEDS: PSYLLIUM FIBER SF/GF 6 GM POWD PKT PO SCH ×3 (09:00→17:30)
[2016-07-19] MEDS: NYSTATIN 100,000 U/GM PWD 15 GM BTL TOPICAL SCH ×2 (09:00→21:00)
[2016-07-19] MEDS: CHOLESTYRAMINE 4 GM PACKET PO SCH ×2 (09:00→21:00)
[2016-07-19] MEDS: LACTIC ACID (AMMONIUM LACTATE) 12% LOTION 225 GM BTL TOPICAL SCH ×2 (09:00→21:00)
[2016-07-19] MEDS: LACTOBACILLUS ACIDOPHILUS TAB PO SCH ×3 (09:18→17:30)
[2016-07-19] MEDS: CALCIUM/VITAMIN D 250 MG/125 U TAB PO SCH ×2 (09:18→21:21)
[2016-07-19] MEDS: ASCORBIC ACID 500 MG TAB PO SCH ×3 (09:18→17:30)
[2016-07-19] MEDS: buPROPion HCL 100 MG TAB PO SCH ×2 (09:18→21:21)
[2016-07-19] MEDS: MULTIVITAMINS/IRON/MINERALS CHEWABLE TAB CHEW SCH (09:18)
[2016-07-19] MEDS: FAMOTIDINE 20 MG TAB PO SCH ×2 (09:18→21:21)
[2016-07-19] MEDS: METOPROLOL TARTRATE 25 MG TAB PO SCH ×2 (09:18→21:21)
[2016-07-19] MEDS: FERROUS SULFATE 325 MG (65 MG ELEMENTAL IRON) TAB PO SCH ×3 (09:19→17:31)
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
[2016-07-19 12:00] VITALS: BP 101/59; PULSE 61; RESP 14; TEMP 97.1; O2SAT 99
[2016-07-19 16:00] VITALS: BP 109/68; PULSE 75; RESP 18; TEMP 97.5; O2SAT 98
[2016-07-19 20:00] VITALS: BP 120/72; PULSE 73; RESP 17; TEMP 97.3; O2SAT 100
[2016-07-19] MEDS: AQUAPHOR OINT 50 APPLIC/50 GM TUBE TOP SCH (21:00)
[2016-07-20 04:00] VITALS: BP 103/57; PULSE 69; RESP 17; TEMP 97; O2SAT 100
[2016-07-20] MEDS: ENOXAPARIN SODIUM 60 MG/0.6 ML SYRINGE SQ SCH ×2 (04:18→17:15)
[2016-07-20] MEDS: DIPHENOXYLATE/ATROPINE 2.5 MG/0.025 MG TAB PO SCH ×4 (04:18→21:00)
[2016-07-20] MEDS: hydrOXYzine HCL 25 MG TAB PO SCH ×3 (04:24→22:02)
[2016-07-20] MEDS: CARISOPRODOL 350 MG TAB PO PRN ×3 (06:10→21:57)
[2016-07-20 08:00] VITALS: BP 113/53; PULSE 67; RESP 20; TEMP 96.9; O2SAT 99
[2016-07-20] MEDS: PSYLLIUM FIBER SF/GF 6 GM POWD PKT PO SCH ×3 (09:00→17:15)
[2016-07-20] MEDS: NYSTATIN 100,000 U/GM PWD 15 GM BTL TOPICAL SCH ×2 (09:00→21:00)
[2016-07-20] MEDS: CHOLESTYRAMINE 4 GM PACKET PO SCH ×2 (09:00→21:00)
[2016-07-20] MEDS: LACTIC ACID (AMMONIUM LACTATE) 12% LOTION 225 GM BTL TOPICAL SCH ×2 (09:00→21:00)
[2016-07-20] MEDS: FERROUS SULFATE 325 MG (65 MG ELEMENTAL IRON) TAB PO SCH ×3 (09:00→17:15)
[2016-07-20] MEDS: ASCORBIC ACID 500 MG TAB PO SCH ×3 (09:50→17:15)
[2016-07-20] MEDS: METOPROLOL TARTRATE 25 MG TAB PO SCH ×2 (09:51→21:55)
[2016-07-20] MEDS: LACTOBACILLUS ACIDOPHILUS TAB PO SCH ×3 (09:51→17:15)
[2016-07-20] MEDS: MULTIVITAMINS/IRON/MINERALS CHEWABLE TAB CHEW SCH (09:51)
[2016-07-20] MEDS: buPROPion HCL 100 MG TAB PO SCH ×2 (09:51→21:55)
[2016-07-20] MEDS: CALCIUM/VITAMIN D 250 MG/125 U TAB PO SCH ×2 (09:52→21:55)
[2016-07-20] MEDS: FAMOTIDINE 20 MG TAB PO SCH ×2 (09:52→21:55)
[2016-07-20 12:00] VITALS: BP 126/61; PULSE 59; RESP 20; TEMP 96.9; O2SAT 99
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
[2016-07-20 16:00] VITALS: BP 132/70; PULSE 75; RESP 19; TEMP 98.4; O2SAT 98
[2016-07-20 20:00] VITALS: BP 134/60; PULSE 81; RESP 17; TEMP 96.1; O2SAT 100
[2016-07-20] MEDS: AQUAPHOR OINT 50 APPLIC/50 GM TUBE TOP SCH (21:00)
[2016-07-21] MEDS: DIPHENOXYLATE/ATROPINE 2.5 MG/0.025 MG TAB PO SCH ×4 (03:00→20:06)
[2016-07-21] MEDS: ENOXAPARIN SODIUM 60 MG/0.6 ML SYRINGE SQ SCH ×2 (03:35→15:55)
[2016-07-21] MEDS: CARISOPRODOL 350 MG TAB PO PRN ×2 (05:19→23:08)
[2016-07-21] MEDS: hydrOXYzine HCL 25 MG TAB PO SCH ×3 (05:19→20:06)
[2016-07-21 08:00] VITALS: BP 107/52; PULSE 67; RESP 15; TEMP 95.7; O2SAT 98
[2016-07-21] MEDS: LACTIC ACID (AMMONIUM LACTATE) 12% LOTION 225 GM BTL TOPICAL SCH ×2 (09:00→20:05)
[2016-07-21] MEDS: NYSTATIN 100,000 U/GM PWD 15 GM BTL TOPICAL SCH ×2 (09:00→20:06)
[2016-07-21] MEDS: PSYLLIUM FIBER SF/GF 6 GM POWD PKT PO SCH ×3 (09:00→18:00)
[2016-07-21] MEDS: buPROPion HCL 100 MG TAB PO SCH ×2 (09:51→20:06)
[2016-07-21] MEDS: CHOLESTYRAMINE 4 GM PACKET PO SCH ×2 (09:51→20:05)
[2016-07-21] MEDS: ASCORBIC ACID 500 MG TAB PO SCH ×3 (09:51→19:03)
[2016-07-21] MEDS: LACTOBACILLUS ACIDOPHILUS TAB PO SCH ×3 (09:52→18:00)
[2016-07-21] MEDS: FERROUS SULFATE 325 MG (65 MG ELEMENTAL IRON) TAB PO SCH ×3 (09:52→19:03)
[2016-07-21] MEDS: MULTIVITAMINS/IRON/MINERALS CHEWABLE TAB CHEW SCH (09:52)
[2016-07-21] MEDS: FAMOTIDINE 20 MG TAB PO SCH ×2 (09:52→20:06)
[2016-07-21] MEDS: CALCIUM/VITAMIN D 250 MG/125 U TAB PO SCH ×2 (09:52→20:06)
[2016-07-21] MEDS: METOPROLOL TARTRATE 25 MG TAB PO SCH ×2 (09:52→20:06)
[2016-07-21 12:00] VITALS: BP 112/57; PULSE 56; RESP 15; TEMP 96.9; O2SAT 97
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
[2016-07-21 16:00] VITALS: BP 128/61; PULSE 72; RESP 16; TEMP 97.8; O2SAT 100
[2016-07-21 20:00] VITALS: BP 121/57; PULSE 77; RESP 18; TEMP 97.1; O2SAT 99
[2016-07-21] MEDS: AQUAPHOR OINT 50 APPLIC/50 GM TUBE TOP SCH (20:05)
[2016-07-22 01:05] VITALS: BP 119/61; PULSE 72; RESP 18; TEMP 98.2; O2SAT 97
[2016-07-22] MEDS: hydrOXYzine HCL 25 MG TAB PO SCH ×3 (04:53→19:42)
[2016-07-22] MEDS: DIPHENOXYLATE/ATROPINE 2.5 MG/0.025 MG TAB PO SCH ×4 (04:53→19:42)
[2016-07-22] MEDS: ENOXAPARIN SODIUM 60 MG/0.6 ML SYRINGE SQ SCH ×3 (04:54→16:25)
[2016-07-22 08:00] VITALS: BP 115/55; PULSE 64; RESP 16; TEMP 96.1; O2SAT 96
[2016-07-22] MEDS: CALCIUM/VITAMIN D 250 MG/125 U TAB PO SCH ×2 (08:46→19:42)
[2016-07-22] MEDS: buPROPion HCL 100 MG TAB PO SCH ×2 (08:46→19:42)
[2016-07-22] MEDS: ASCORBIC ACID 500 MG TAB PO SCH ×3 (08:46→16:28)
[2016-07-22] MEDS: FAMOTIDINE 20 MG TAB PO SCH ×2 (08:46→19:42)
[2016-07-22] MEDS: METOPROLOL TARTRATE 25 MG TAB PO SCH ×2 (08:46→19:42)
[2016-07-22] MEDS: FERROUS SULFATE 325 MG (65 MG ELEMENTAL IRON) TAB PO SCH ×3 (08:46→16:27)
[2016-07-22] MEDS: LACTOBACILLUS ACIDOPHILUS TAB PO SCH ×3 (08:46→16:28)
[2016-07-22] MEDS: MULTIVITAMINS/IRON/MINERALS CHEWABLE TAB CHEW SCH (08:46)
[2016-07-22] MEDS: CHOLESTYRAMINE 4 GM PACKET PO SCH ×2 (08:47→19:42)
[2016-07-22] MEDS: NYSTATIN 100,000 U/GM PWD 15 GM BTL TOPICAL SCH ×2 (08:47→19:43)
[2016-07-22] MEDS: PSYLLIUM FIBER SF/GF 6 GM POWD PKT PO SCH ×3 (08:47→12:42)
[2016-07-22] MEDS: LACTIC ACID (AMMONIUM LACTATE) 12% LOTION 225 GM BTL TOPICAL SCH ×2 (08:47→19:43)
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
[2016-07-22 12:00] VITALS: BP 121/58; PULSE 63; RESP 16; TEMP 97.2; O2SAT 97
[2016-07-22] MEDS: CARISOPRODOL 350 MG TAB PO PRN (12:44)
[2016-07-22 16:00] VITALS: BP 109/59; PULSE 70; RESP 16; TEMP 97.7; O2SAT 97
[2016-07-22] MEDS: AQUAPHOR OINT 50 APPLIC/50 GM TUBE TOP SCH (19:43)
[2016-07-22 20:00] VITALS: BP 127/58; PULSE 92; RESP 18; TEMP 97.2; O2SAT 97
[2016-07-23] VITALS: BP 125/58; PULSE 82; RESP 18; TEMP 97.2; O2SAT 96
[2016-07-23] MEDS: DIPHENOXYLATE/ATROPINE 2.5 MG/0.025 MG TAB PO SCH ×4 (05:18→22:21)
[2016-07-23] MEDS: ENOXAPARIN SODIUM 60 MG/0.6 ML SYRINGE SQ SCH ×2 (05:18→17:19)
[2016-07-23] MEDS: hydrOXYzine HCL 25 MG TAB PO SCH ×3 (05:18→22:21)
[2016-07-23 08:00] VITALS: BP 125/59; PULSE 72; RESP 16; TEMP 95.9; O2SAT 98
[2016-07-23] MEDS: PSYLLIUM FIBER SF/GF 6 GM POWD PKT PO SCH ×3 (08:48→17:16)
[2016-07-23] MEDS: CHOLESTYRAMINE 4 GM PACKET PO SCH ×2 (08:48→21:00)
[2016-07-23] MEDS: CARISOPRODOL 350 MG TAB PO PRN ×2 (08:49→17:19)
[2016-07-23] MEDS: LACTOBACILLUS ACIDOPHILUS TAB PO SCH ×3 (08:50→17:18)
[2016-07-23] MEDS: MULTIVITAMINS/IRON/MINERALS CHEWABLE TAB CHEW SCH (08:50)
[2016-07-23] MEDS: ASCORBIC ACID 500 MG TAB PO SCH ×3 (08:50→17:18)
[2016-07-23] MEDS: buPROPion HCL 100 MG TAB PO SCH ×2 (08:50→22:21)
[2016-07-23] MEDS: METOPROLOL TARTRATE 25 MG TAB PO SCH ×2 (08:50→22:21)
[2016-07-23] MEDS: CALCIUM/VITAMIN D 250 MG/125 U TAB PO SCH ×2 (08:50→22:21)
[2016-07-23] MEDS: ERGOCALCIFEROL (VIT D2) 50,000 UNIT CAP PO SCH (08:50)
[2016-07-23] MEDS: FAMOTIDINE 20 MG TAB PO SCH ×2 (08:50→22:21)
[2016-07-23] MEDS: FERROUS SULFATE 325 MG (65 MG ELEMENTAL IRON) TAB PO SCH ×3 (08:50→17:18)
[2016-07-23] MEDS: NYSTATIN 100,000 U/GM PWD 15 GM BTL TOPICAL SCH ×2 (08:51→21:00)
[2016-07-23] MEDS: LACTIC ACID (AMMONIUM LACTATE) 12% LOTION 225 GM BTL TOPICAL SCH ×2 (08:51→21:00)
[2016-07-23 12:00] VITALS: BP 126/66; PULSE 62; RESP 16; TEMP 96.5; O2SAT 98
[2016-07-23 16:00] VITALS: BP 165/69; PULSE 70; RESP 16; TEMP 96.9; O2SAT 96
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
[2016-07-23 20:00] VITALS: BP 125/93; PULSE 66; RESP 20; TEMP 97.4; O2SAT 98
[2016-07-23] MEDS: AQUAPHOR OINT 50 APPLIC/50 GM TUBE TOP SCH (21:00)
[2016-07-24] VITALS: BP 120/68; PULSE 72; RESP 18; TEMP 98.2; O2SAT 97
[2016-07-24] MEDS: CARISOPRODOL 350 MG TAB PO PRN ×2 (04:42→16:53)
[2016-07-24] MEDS: DIPHENOXYLATE/ATROPINE 2.5 MG/0.025 MG TAB PO SCH ×4 (04:42→21:19)
[2016-07-24] MEDS: ENOXAPARIN SODIUM 60 MG/0.6 ML SYRINGE SQ SCH ×2 (04:43→16:53)
[2016-07-24] MEDS: hydrOXYzine HCL 25 MG TAB PO SCH ×3 (04:44→21:23)
[2016-07-24 05:46] LABS: AUTOMATED NEUTROPHIL # 4.8 TH/MM3 (1.8-7.7); BASOPHIL % 0.4 % (0.0-2.0); EOSINOPHIL # 0.3 TH/MM3 (0-0.4); EOSINOPHIL % 3.9 % (0.0-4.0); HEMATOCRIT 32.3 % (39.0-51.0); HEMO FLAGS DIFF FINAL; LYMPH % 21.9 % (9.0-44.0); LYMPHOCYTE # 1.6 TH/MM3 (1.0-4.8); MEAN CELL VOLUME 75.4 FL (80.0-100.0); MEAN CORPUSCULAR HEMOGLOBIN 25.1 PG (27.0-34.0); MEAN CORPUSCULAR HGB CONC 33.3 % (32.0-36.0); MONO % 6.7 % (0.0-8.0); NEUT % 67.1 % (16.0-70.0); PLATELET COUNT 237 TH/MM3 (150-450); RED BLOOD COUNT 4.29 MIL/MM3 (4.50-5.90); RED CELL DISTRIBUTION WIDTH 17.6 % (11.6-17.2); WHITE BLOOD COUNT 7.1 TH/MM3 (4.0-11.0)
[2016-07-24 05:51] LABS: TRANSFERRIN IRON PROFILE 142 MG/DL (200-360)
[2016-07-24 08:00] VITALS: BP 121/63; PULSE 62; RESP 20; TEMP 97.7; O2SAT 100
[2016-07-24] MEDS: LACTOBACILLUS ACIDOPHILUS TAB PO SCH ×3 (08:58→16:53)
[2016-07-24] MEDS: MULTIVITAMINS/IRON/MINERALS CHEWABLE TAB CHEW SCH (08:58)
[2016-07-24] MEDS: FAMOTIDINE 20 MG TAB PO SCH ×2 (08:58→21:19)
[2016-07-24] MEDS: METOPROLOL TARTRATE 25 MG TAB PO SCH ×2 (08:58→21:20)
[2016-07-24] MEDS: CALCIUM/VITAMIN D 250 MG/125 U TAB PO SCH ×2 (08:58→21:19)
[2016-07-24] MEDS: FERROUS SULFATE 325 MG (65 MG ELEMENTAL IRON) TAB PO SCH ×3 (08:58→16:53)
[2016-07-24] MEDS: ASCORBIC ACID 500 MG TAB PO SCH ×3 (08:59→16:53)
[2016-07-24] MEDS: LACTIC ACID (AMMONIUM LACTATE) 12% LOTION 225 GM BTL TOPICAL SCH ×2 (08:59→21:00)
[2016-07-24] MEDS: PSYLLIUM FIBER SF/GF 6 GM POWD PKT PO SCH ×3 (08:59→18:00)
[2016-07-24] MEDS: buPROPion HCL 100 MG TAB PO SCH ×2 (08:59→21:19)
[2016-07-24] MEDS: NYSTATIN 100,000 U/GM PWD 15 GM BTL TOPICAL SCH ×2 (08:59→21:00)
[2016-07-24] MEDS: CHOLESTYRAMINE 4 GM PACKET PO SCH ×2 (08:59→21:00)
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
[2016-07-24 12:00] VITALS: BP 120/59; PULSE 72; RESP 20; TEMP 96.9; O2SAT 97
[2016-07-24 16:00] VITALS: BP 136/58; PULSE 69; RESP 20; TEMP 98.9; O2SAT 99
[2016-07-24 20:00] VITALS: BP 111/56; PULSE 84; RESP 19; TEMP 96.9; O2SAT 97
[2016-07-24] MEDS: AQUAPHOR OINT 50 APPLIC/50 GM TUBE TOP SCH (21:00)
[2016-07-25] VITALS: BP 107/65; PULSE 66; RESP 17; TEMP 98.2; O2SAT 98
[2016-07-25] MEDS: CARISOPRODOL 350 MG TAB PO PRN ×3 (01:53→23:41)
[2016-07-25] MEDS: DIPHENOXYLATE/ATROPINE 2.5 MG/0.025 MG TAB PO SCH ×4 (05:12→21:09)
[2016-07-25] MEDS: hydrOXYzine HCL 25 MG TAB PO SCH ×3 (05:12→23:41)
[2016-07-25] MEDS: ENOXAPARIN SODIUM 60 MG/0.6 ML SYRINGE SQ SCH ×2 (05:12→17:47)
[2016-07-25 08:00] VITALS: BP 116/57; PULSE 70; RESP 20; TEMP 98.1; O2SAT 99
[2016-07-25] MEDS: CHOLESTYRAMINE 4 GM PACKET PO SCH ×2 (09:00→21:00)
[2016-07-25] MEDS: LACTIC ACID (AMMONIUM LACTATE) 12% LOTION 225 GM BTL TOPICAL SCH ×2 (09:00→21:00)
[2016-07-25] MEDS: NYSTATIN 100,000 U/GM PWD 15 GM BTL TOPICAL SCH ×2 (09:00→21:00)
[2016-07-25] MEDS: PSYLLIUM FIBER SF/GF 6 GM POWD PKT PO SCH ×3 (09:00→17:50)
[2016-07-25] MEDS: FERROUS SULFATE 325 MG (65 MG ELEMENTAL IRON) TAB PO SCH ×3 (11:07→17:49)
[2016-07-25] MEDS: ASCORBIC ACID 500 MG TAB PO SCH ×3 (11:07→17:50)
[2016-07-25] MEDS: buPROPion HCL 100 MG TAB PO SCH ×2 (11:08→21:09)
[2016-07-25] MEDS: LACTOBACILLUS ACIDOPHILUS TAB PO SCH ×3 (11:08→17:47)
[2016-07-25] MEDS: CALCIUM/VITAMIN D 250 MG/125 U TAB PO SCH ×2 (11:08→21:09)
[2016-07-25] MEDS: FAMOTIDINE 20 MG TAB PO SCH ×2 (11:08→21:09)
[2016-07-25] MEDS: MULTIVITAMINS/IRON/MINERALS CHEWABLE TAB CHEW SCH (11:09)
[2016-07-25] MEDS: METOPROLOL TARTRATE 25 MG TAB PO SCH ×2 (11:09→21:09)
[2016-07-25 12:00] VITALS: BP 123/67; PULSE 77; RESP 20; TEMP 97.4; O2SAT 97
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
[2016-07-25 16:00] VITALS: BP 121/61; PULSE 69; RESP 19; TEMP 98.4; O2SAT 98
[2016-07-25 20:00] VITALS: BP 113/58; PULSE 67; RESP 20; TEMP 98.5; O2SAT 96
[2016-07-25] MEDS: AQUAPHOR OINT 50 APPLIC/50 GM TUBE TOP SCH (21:00)
[2016-07-26] VITALS: BP 113/68; PULSE 92; RESP 20; TEMP 97.2; O2SAT 95
[2016-07-26] MEDS: hydrOXYzine HCL 25 MG TAB PO SCH ×3 (05:31→20:58)
[2016-07-26] MEDS: DIPHENOXYLATE/ATROPINE 2.5 MG/0.025 MG TAB PO SCH ×4 (05:31→20:58)
[2016-07-26] MEDS: ENOXAPARIN SODIUM 60 MG/0.6 ML SYRINGE SQ SCH ×2 (05:32→15:15)
[2016-07-26 08:00] VITALS: BP 92/55; PULSE 73; RESP 18; TEMP 97; O2SAT 94
[2016-07-26] MEDS: CHOLESTYRAMINE 4 GM PACKET PO SCH ×2 (09:00→20:58)
[2016-07-26] MEDS: LACTIC ACID (AMMONIUM LACTATE) 12% LOTION 225 GM BTL TOPICAL SCH ×2 (09:00→20:56)
[2016-07-26] MEDS: METOPROLOL TARTRATE 25 MG TAB PO SCH ×2 (09:00→20:58)
[2016-07-26] MEDS: PSYLLIUM FIBER SF/GF 6 GM POWD PKT PO SCH ×3 (09:00→17:06)
[2016-07-26] MEDS: NYSTATIN 100,000 U/GM PWD 15 GM BTL TOPICAL SCH ×2 (09:00→20:56)
[2016-07-26] MEDS: CALCIUM/VITAMIN D 250 MG/125 U TAB PO SCH ×2 (11:09→20:58)
[2016-07-26] MEDS: FERROUS SULFATE 325 MG (65 MG ELEMENTAL IRON) TAB PO SCH ×3 (11:09→17:09)
[2016-07-26] MEDS: MULTIVITAMINS/IRON/MINERALS CHEWABLE TAB CHEW SCH (11:09)
[2016-07-26] MEDS: LACTOBACILLUS ACIDOPHILUS TAB PO SCH ×3 (11:10→17:09)
[2016-07-26] MEDS: ASCORBIC ACID 500 MG TAB PO SCH ×3 (11:10→17:09)
[2016-07-26] MEDS: buPROPion HCL 100 MG TAB PO SCH ×2 (11:10→20:58)
[2016-07-26] MEDS: FAMOTIDINE 20 MG TAB PO SCH ×2 (11:10→20:58)
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
[2016-07-26 12:00] VITALS: BP 118/66; PULSE 75; RESP 21; TEMP 97.1; O2SAT 96
[2016-07-26 16:00] VITALS: BP 129/75; PULSE 89; RESP 20; TEMP 97.2; O2SAT 98
[2016-07-26] MEDS: CARISOPRODOL 350 MG TAB PO PRN (17:09)
[2016-07-26 20:00] VITALS: BP 132/76; PULSE 82; RESP 20; TEMP 98.4; O2SAT 95
[2016-07-26] MEDS: AQUAPHOR OINT 50 APPLIC/50 GM TUBE TOP SCH (20:56)
[2016-07-27] VITALS: BP 126/82; PULSE 80; RESP 20; TEMP 97.4; O2SAT 97
[2016-07-27] MEDS: CARISOPRODOL 350 MG TAB PO PRN ×4 (00:53→22:08)
[2016-07-27] MEDS: ENOXAPARIN SODIUM 60 MG/0.6 ML SYRINGE SQ SCH ×2 (04:57→19:03)
[2016-07-27] MEDS: DIPHENOXYLATE/ATROPINE 2.5 MG/0.025 MG TAB PO SCH ×4 (04:57→22:10)
[2016-07-27] MEDS: hydrOXYzine HCL 25 MG TAB PO SCH ×3 (04:57→22:09)
[2016-07-27 08:00] VITALS: BP 127/83; PULSE 75; RESP 20; TEMP 96.1; O2SAT 99
[2016-07-27] MEDS: PSYLLIUM FIBER SF/GF 6 GM POWD PKT PO SCH ×3 (09:00→18:00)
[2016-07-27] MEDS: NYSTATIN 100,000 U/GM PWD 15 GM BTL TOPICAL SCH ×2 (09:00→21:00)
[2016-07-27] MEDS: LACTIC ACID (AMMONIUM LACTATE) 12% LOTION 225 GM BTL TOPICAL SCH ×2 (09:00→21:00)
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
[2016-07-27 12:00] VITALS: BP 101/56; PULSE 63; RESP 21; TEMP 96; O2SAT 96
[2016-07-27] MEDS: LACTOBACILLUS ACIDOPHILUS TAB PO SCH ×3 (13:00→19:01)
[2016-07-27] MEDS: FERROUS SULFATE 325 MG (65 MG ELEMENTAL IRON) TAB PO SCH ×3 (13:00→19:01)
[2016-07-27] MEDS: FAMOTIDINE 20 MG TAB PO SCH ×2 (13:37→22:10)
[2016-07-27] MEDS: ASCORBIC ACID 500 MG TAB PO SCH ×3 (13:37→19:01)
[2016-07-27] MEDS: MULTIVITAMINS/IRON/MINERALS CHEWABLE TAB CHEW SCH (13:37)
[2016-07-27] MEDS: buPROPion HCL 100 MG TAB PO SCH ×2 (13:38→22:09)
[2016-07-27] MEDS: CALCIUM/VITAMIN D 250 MG/125 U TAB PO SCH ×2 (13:38→22:09)
[2016-07-27] MEDS: METOPROLOL TARTRATE 25 MG TAB PO SCH ×2 (13:38→21:00)
[2016-07-27 16:00] VITALS: BP 111/72; PULSE 72; RESP 22; TEMP 99.1; O2SAT 97
[2016-07-27 20:00] VITALS: BP 108/61; PULSE 66; RESP 18; TEMP 98.2; O2SAT 98
[2016-07-27] MEDS: AQUAPHOR OINT 50 APPLIC/50 GM TUBE TOP SCH (21:00)
[2016-07-28] MEDS: hydrOXYzine HCL 25 MG TAB PO SCH ×3 (06:11→21:28)
[2016-07-28] MEDS: ENOXAPARIN SODIUM 60 MG/0.6 ML SYRINGE SQ SCH ×2 (06:12→16:32)
[2016-07-28] MEDS: DIPHENOXYLATE/ATROPINE 2.5 MG/0.025 MG TAB PO SCH ×4 (06:14→21:28)
[2016-07-28 08:00] VITALS: BP 103/56; PULSE 69; RESP 16; TEMP 98.2; O2SAT 98
[2016-07-28] MEDS: FERROUS SULFATE 325 MG (65 MG ELEMENTAL IRON) TAB PO SCH ×3 (09:00→18:54)
[2016-07-28] MEDS: NYSTATIN 100,000 U/GM PWD 15 GM BTL TOPICAL SCH ×2 (09:00→21:30)
[2016-07-28] MEDS: LACTOBACILLUS ACIDOPHILUS TAB PO SCH ×3 (09:00→18:54)
[2016-07-28] MEDS: LACTIC ACID (AMMONIUM LACTATE) 12% LOTION 225 GM BTL TOPICAL SCH ×2 (09:00→21:31)
[2016-07-28] MEDS: PSYLLIUM FIBER SF/GF 6 GM POWD PKT PO SCH ×3 (09:00→18:00)
[2016-07-28] MEDS: METOPROLOL TARTRATE 25 MG TAB PO SCH ×2 (11:23→21:28)
[2016-07-28] MEDS: buPROPion HCL 100 MG TAB PO SCH ×2 (11:23→21:28)
[2016-07-28] MEDS: MULTIVITAMINS/IRON/MINERALS CHEWABLE TAB CHEW SCH (11:23)
[2016-07-28] MEDS: ASCORBIC ACID 500 MG TAB PO SCH ×3 (11:23→18:54)
[2016-07-28] MEDS: CALCIUM/VITAMIN D 250 MG/125 U TAB PO SCH ×2 (11:23→21:28)
[2016-07-28] MEDS: CARISOPRODOL 350 MG TAB PO PRN (11:24)
[2016-07-28] MEDS: FAMOTIDINE 20 MG TAB PO SCH ×2 (11:25→21:28)
[2016-07-28 12:00] VITALS: BP 102/55; PULSE 57; RESP 14; TEMP 98; O2SAT 95
[2016-07-28 16:00] VITALS: BP 105/50; PULSE 70; RESP 16; TEMP 98.3; O2SAT 97
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
[2016-07-28 20:00] VITALS: BP 123/70; PULSE 65; RESP 20; TEMP 97.8; O2SAT 98
[2016-07-28] MEDS: AQUAPHOR OINT 50 APPLIC/50 GM TUBE TOP SCH (21:30)
[2016-07-29] MEDS: CARISOPRODOL 350 MG TAB PO PRN ×3 (01:33→18:30)
[2016-07-29] MEDS: hydrOXYzine HCL 25 MG TAB PO SCH ×3 (05:11→20:20)
[2016-07-29] MEDS: DIPHENOXYLATE/ATROPINE 2.5 MG/0.025 MG TAB PO SCH ×4 (05:11→20:14)
[2016-07-29] MEDS: ENOXAPARIN SODIUM 60 MG/0.6 ML SYRINGE SQ SCH ×2 (05:12→16:37)
[2016-07-29 08:00] VITALS: BP 104/54; PULSE 62; RESP 16; TEMP 97.7; O2SAT 98
[2016-07-29] MEDS: NYSTATIN 100,000 U/GM PWD 15 GM BTL TOPICAL SCH ×2 (09:00→20:16)
[2016-07-29] MEDS: LACTIC ACID (AMMONIUM LACTATE) 12% LOTION 225 GM BTL TOPICAL SCH ×2 (09:00→20:15)
[2016-07-29] MEDS: PSYLLIUM FIBER SF/GF 6 GM POWD PKT PO SCH ×3 (09:00→18:00)
[2016-07-29] MEDS: MULTIVITAMINS/IRON/MINERALS CHEWABLE TAB CHEW SCH (10:58)
[2016-07-29] MEDS: FAMOTIDINE 20 MG TAB PO SCH ×2 (10:59→20:14)
[2016-07-29] MEDS: LACTOBACILLUS ACIDOPHILUS TAB PO SCH ×3 (10:59→18:30)
[2016-07-29] MEDS: FERROUS SULFATE 325 MG (65 MG ELEMENTAL IRON) TAB PO SCH ×3 (11:00→18:30)
[2016-07-29] MEDS: ASCORBIC ACID 500 MG TAB PO SCH ×3 (11:00→16:36)
[2016-07-29] MEDS: CALCIUM/VITAMIN D 250 MG/125 U TAB PO SCH ×2 (11:00→20:14)
[2016-07-29] MEDS: buPROPion HCL 100 MG TAB PO SCH ×2 (11:00→20:14)
[2016-07-29] MEDS: METOPROLOL TARTRATE 25 MG TAB PO SCH ×2 (11:00→20:14)
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
[2016-07-29 12:00] VITALS: BP 103/64; PULSE 61; RESP 15; TEMP 97.8; O2SAT 97
[2016-07-29 16:00] VITALS: BP 114/59; PULSE 81; RESP 17; TEMP 98.5; O2SAT 97
[2016-07-29 20:00] VITALS: BP 121/59; PULSE 67; RESP 20; TEMP 98.4; O2SAT 95
[2016-07-29] MEDS: AQUAPHOR OINT 50 APPLIC/50 GM TUBE TOP SCH (20:16)
[2016-07-30] VITALS: BP 113/67; PULSE 67; RESP 20; TEMP 98.2; O2SAT 98
[2016-07-30] MEDS: ENOXAPARIN SODIUM 60 MG/0.6 ML SYRINGE SQ SCH ×2 (04:13→17:12)
[2016-07-30] MEDS: DIPHENOXYLATE/ATROPINE 2.5 MG/0.025 MG TAB PO SCH ×4 (04:14→23:01)
[2016-07-30] MEDS: hydrOXYzine HCL 25 MG TAB PO SCH ×3 (04:18→23:01)
[2016-07-30] MEDS: CARISOPRODOL 350 MG TAB PO PRN ×3 (04:18→23:03)
[2016-07-30 08:00] VITALS: BP 116/63; PULSE 74; RESP 20; TEMP 98.9; O2SAT 97
[2016-07-30] MEDS: CALCIUM/VITAMIN D 250 MG/125 U TAB PO SCH ×2 (08:39→23:00)
[2016-07-30] MEDS: ASCORBIC ACID 500 MG TAB PO SCH ×3 (08:39→17:12)
[2016-07-30] MEDS: ERGOCALCIFEROL (VIT D2) 50,000 UNIT CAP PO SCH (08:39)
[2016-07-30] MEDS: FAMOTIDINE 20 MG TAB PO SCH ×2 (08:39→23:00)
[2016-07-30] MEDS: MULTIVITAMINS/IRON/MINERALS CHEWABLE TAB CHEW SCH (08:39)
[2016-07-30] MEDS: FERROUS SULFATE 325 MG (65 MG ELEMENTAL IRON) TAB PO SCH ×3 (08:39→17:12)
[2016-07-30] MEDS: LACTOBACILLUS ACIDOPHILUS TAB PO SCH ×3 (08:39→17:12)
[2016-07-30] MEDS: METOPROLOL TARTRATE 25 MG TAB PO SCH ×2 (08:39→23:00)
[2016-07-30] MEDS: buPROPion HCL 100 MG TAB PO SCH ×2 (08:39→23:01)
[2016-07-30] MEDS: LACTIC ACID (AMMONIUM LACTATE) 12% LOTION 225 GM BTL TOPICAL SCH ×2 (08:43→23:03)
[2016-07-30] MEDS: NYSTATIN 100,000 U/GM PWD 15 GM BTL TOPICAL SCH ×2 (08:43→23:03)
[2016-07-30] MEDS: PSYLLIUM FIBER SF/GF 6 GM POWD PKT PO SCH ×3 (08:46→17:13)
[2016-07-30 12:00] VITALS: BP 107/53; PULSE 66; RESP 21; TEMP 97.8; O2SAT 97
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
[2016-07-30 16:00] VITALS: BP 102/55; PULSE 72; RESP 19; TEMP 98.3; O2SAT 97
[2016-07-30 20:00] VITALS: BP 129/62; PULSE 79; RESP 20; TEMP 98; O2SAT 98
[2016-07-30] MEDS: AQUAPHOR OINT 50 APPLIC/50 GM TUBE TOP SCH (23:03)
[2016-07-31] VITALS: BP 129/70; PULSE 80; RESP 20; TEMP 96.6; O2SAT 98
[2016-07-31] MEDS: CARISOPRODOL 350 MG TAB PO PRN ×2 (05:53→14:47)
[2016-07-31] MEDS: DIPHENOXYLATE/ATROPINE 2.5 MG/0.025 MG TAB PO SCH ×4 (05:53→21:06)
[2016-07-31] MEDS: hydrOXYzine HCL 25 MG TAB PO SCH ×3 (05:53→21:05)
[2016-07-31] MEDS: ENOXAPARIN SODIUM 60 MG/0.6 ML SYRINGE SQ SCH ×2 (05:56→18:16)
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
[2016-07-31 08:00] VITALS: BP 118/59; PULSE 75; RESP 19; TEMP 97.1; O2SAT 97
[2016-07-31] MEDS: PSYLLIUM FIBER SF/GF 6 GM POWD PKT PO SCH ×3 (09:00→18:00)
[2016-07-31] MEDS: LACTIC ACID (AMMONIUM LACTATE) 12% LOTION 225 GM BTL TOPICAL SCH ×2 (09:00→21:00)
[2016-07-31] MEDS: LACTOBACILLUS ACIDOPHILUS TAB PO SCH ×3 (09:00→18:16)
[2016-07-31] MEDS: MULTIVITAMINS/IRON/MINERALS CHEWABLE TAB CHEW SCH (09:00)
[2016-07-31] MEDS: NYSTATIN 100,000 U/GM PWD 15 GM BTL TOPICAL SCH ×2 (09:00→21:00)
[2016-07-31] MEDS: CALCIUM/VITAMIN D 250 MG/125 U TAB PO SCH ×2 (10:20→21:05)
[2016-07-31] MEDS: ASCORBIC ACID 500 MG TAB PO SCH ×3 (10:20→18:16)
[2016-07-31] MEDS: METOPROLOL TARTRATE 25 MG TAB PO SCH ×2 (10:20→21:05)
[2016-07-31] MEDS: buPROPion HCL 100 MG TAB PO SCH ×2 (10:20→21:05)
[2016-07-31] MEDS: FERROUS SULFATE 325 MG (65 MG ELEMENTAL IRON) TAB PO SCH ×3 (10:20→18:16)
[2016-07-31] MEDS: FAMOTIDINE 20 MG TAB PO SCH ×2 (10:21→21:06)
[2016-07-31 12:00] VITALS: BP 109/57; PULSE 68; RESP 20; TEMP 97.1; O2SAT 96
[2016-07-31 16:00] VITALS: BP 116/75; PULSE 78; RESP 19; TEMP 98.1; O2SAT 96
[2016-07-31 20:00] VITALS: BP 116/59; PULSE 62; RESP 18; TEMP 97.8; O2SAT 96
[2016-07-31] MEDS: AQUAPHOR OINT 50 APPLIC/50 GM TUBE TOP SCH (21:00)
[2016-08-01] VITALS: BP 121/58; PULSE 67; RESP 18; TEMP 96; O2SAT 96
[2016-08-01] MEDS: DIPHENOXYLATE/ATROPINE 2.5 MG/0.025 MG TAB PO SCH ×4 (02:35→23:12)
[2016-08-01] MEDS: ENOXAPARIN SODIUM 60 MG/0.6 ML SYRINGE SQ SCH ×2 (05:26→18:11)
[2016-08-01] MEDS: hydrOXYzine HCL 25 MG TAB PO SCH ×3 (05:26→23:12)
[2016-08-01] MEDS: CARISOPRODOL 350 MG TAB PO PRN ×2 (05:28→18:12)
[2016-08-01 08:00] VITALS: BP 104/67; PULSE 59; RESP 14; TEMP 97.1; O2SAT 98
[2016-08-01] MEDS: NYSTATIN 100,000 U/GM PWD 15 GM BTL TOPICAL SCH (09:00)
[2016-08-01] MEDS: LACTIC ACID (AMMONIUM LACTATE) 12% LOTION 225 GM BTL TOPICAL SCH (09:00)
[2016-08-01] MEDS: PSYLLIUM FIBER SF/GF 6 GM POWD PKT PO SCH ×2 (09:00→13:00)
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
[2016-08-01] MEDS: LACTOBACILLUS ACIDOPHILUS TAB PO SCH ×3 (11:04→18:12)
[2016-08-01] MEDS: FAMOTIDINE 20 MG TAB PO SCH ×2 (11:04→23:11)
[2016-08-01] MEDS: ASCORBIC ACID 500 MG TAB PO SCH ×3 (11:04→18:12)
[2016-08-01] MEDS: METOPROLOL TARTRATE 25 MG TAB PO SCH ×2 (11:04→23:11)
[2016-08-01] MEDS: CALCIUM/VITAMIN D 250 MG/125 U TAB PO SCH ×2 (11:04→23:11)
[2016-08-01] MEDS: MULTIVITAMINS/IRON/MINERALS CHEWABLE TAB CHEW SCH (11:04)
[2016-08-01] MEDS: FERROUS SULFATE 325 MG (65 MG ELEMENTAL IRON) TAB PO SCH ×3 (11:04→18:11)
[2016-08-01 12:00] VITALS: BP 119/70; PULSE 65; RESP 14; TEMP 96.9; O2SAT 97
[2016-08-01] MEDS: buPROPion HCL 100 MG TAB PO SCH ×2 (14:13→23:11)
[2016-08-01 16:00] VITALS: BP 125/64; PULSE 57; RESP 16; TEMP 97.2; O2SAT 98
[2016-08-01 20:00] VITALS: BP 110/66; PULSE 74; RESP 20; TEMP 96.8; O2SAT 95
[2016-08-02] VITALS: BP 122/56; PULSE 73; RESP 22; O2SAT 97
[2016-08-02 04:00] VITALS: BP 104/55; PULSE 70; RESP 22; TEMP 98.1; O2SAT 96
[2016-08-02] MEDS: DIPHENOXYLATE/ATROPINE 2.5 MG/0.025 MG TAB PO SCH ×4 (04:11→22:01)
[2016-08-02] MEDS: hydrOXYzine HCL 25 MG TAB PO SCH ×3 (04:12→22:03)
[2016-08-02] MEDS: ENOXAPARIN SODIUM 60 MG/0.6 ML SYRINGE SQ SCH ×2 (04:12→15:09)
[2016-08-02] MEDS: CARISOPRODOL 350 MG TAB PO PRN ×3 (04:12→22:01)
[2016-08-02 05:15] LABS: BASOPHIL % 0.5 % (0.0-2.0); EOSINOPHIL # 0.2 TH/MM3 (0-0.4); EOSINOPHIL % 3.7 % (0.0-4.0); HEMATOCRIT 33.4 % (39.0-51.0); HEMO FLAGS DIFF FINAL; LYMPH % 26.6 % (9.0-44.0); LYMPHOCYTE # 1.7 TH/MM3 (1.0-4.8); MEAN CELL VOLUME 75.1 FL (80.0-100.0); MEAN CORPUSCULAR HEMOGLOBIN 25.4 PG (27.0-34.0); MEAN CORPUSCULAR HGB CONC 33.8 % (32.0-36.0); NEUT % 63.2 % (16.0-70.0); PLATELET COUNT 202 TH/MM3 (150-450); RED BLOOD COUNT 4.45 MIL/MM3 (4.50-5.90); WHITE BLOOD COUNT 6.4 TH/MM3 (4.0-11.0)
[2016-08-02 05:42] LABS: BICARBONATE 31.1 MEQ/L (21.0-32.0); POTASSIUM 3.6 MEQ/L (3.5-5.1)
[2016-08-02 08:00] VITALS: BP_SYST 107; PULSE 65; RESP 14; TEMP 97.4; O2SAT 96
[2016-08-02] MEDS: METOPROLOL TARTRATE 25 MG TAB PO SCH ×2 (09:00→22:01)
[2016-08-02] MEDS: CALCIUM/VITAMIN D 250 MG/125 U TAB PO SCH ×2 (10:28→22:01)
[2016-08-02] MEDS: FERROUS SULFATE 325 MG (65 MG ELEMENTAL IRON) TAB PO SCH ×3 (10:28→17:30)
[2016-08-02] MEDS: LACTOBACILLUS ACIDOPHILUS TAB PO SCH ×3 (10:28→17:30)
[2016-08-02] MEDS: ASCORBIC ACID 500 MG TAB PO SCH ×3 (10:28→17:30)
[2016-08-02] MEDS: MULTIVITAMINS/IRON/MINERALS CHEWABLE TAB CHEW SCH (10:29)
[2016-08-02] MEDS: FAMOTIDINE 20 MG TAB PO SCH ×2 (10:29→22:01)
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
[2016-08-02 12:00] VITALS: BP 109/57; PULSE 71; RESP 18; TEMP 96.5; O2SAT 95
[2016-08-02 16:00] VITALS: BP 111/55; PULSE 71; RESP 16; TEMP 96.3; O2SAT 95
[2016-08-02 20:00] VITALS: BP 103/59; PULSE 93; RESP 18; TEMP 97.4; O2SAT 97
[2016-08-02] MEDS: buPROPion HCL 100 MG TAB PO SCH (22:02)
[2016-08-03] VITALS: BP 125/75; PULSE 97; RESP 18; TEMP 98.1; O2SAT 98
[2016-08-03] MEDS: DIPHENOXYLATE/ATROPINE 2.5 MG/0.025 MG TAB PO SCH ×4 (03:00→23:25)
[2016-08-03] MEDS: ENOXAPARIN SODIUM 60 MG/0.6 ML SYRINGE SQ SCH ×2 (04:00→16:24)
[2016-08-03 08:00] VITALS: BP 106/56; PULSE 69; RESP 14; TEMP 96.9; O2SAT 96
[2016-08-03] MEDS: MULTIVITAMINS/IRON/MINERALS CHEWABLE TAB CHEW SCH (08:29)
[2016-08-03] MEDS: CALCIUM/VITAMIN D 250 MG/125 U TAB PO SCH ×2 (08:29→21:00)
[2016-08-03] MEDS: FERROUS SULFATE 325 MG (65 MG ELEMENTAL IRON) TAB PO SCH ×3 (08:29→16:24)
[2016-08-03] MEDS: ASCORBIC ACID 500 MG TAB PO SCH ×3 (08:29→16:24)
[2016-08-03] MEDS: buPROPion HCL 100 MG TAB PO SCH ×2 (08:29→23:25)
[2016-08-03] MEDS: LACTOBACILLUS ACIDOPHILUS TAB PO SCH ×3 (08:29→16:24)
[2016-08-03] MEDS: FAMOTIDINE 20 MG TAB PO SCH ×2 (08:29→23:25)
[2016-08-03] MEDS: METOPROLOL TARTRATE 25 MG TAB PO SCH ×2 (08:30→21:00)
[2016-08-03] MEDS: CARISOPRODOL 350 MG TAB PO PRN ×2 (11:01→23:25)
[2016-08-03 12:00] VITALS: BP 110/66; PULSE 72; RESP 16; TEMP 97.2; O2SAT 98
[2016-08-03] MEDS: hydrOXYzine HCL 25 MG TAB PO SCH ×2 (14:17→23:25)
[2016-08-03 16:00] VITALS: BP 120/57; PULSE 67; RESP 16; TEMP 97.5; O2SAT 97
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
[2016-08-03 20:00] VITALS: BP 115/56; PULSE 76; RESP 18; TEMP 97.2; O2SAT 99
[2016-08-04] VITALS: BP 125/56; PULSE 68; RESP 18; TEMP 97.4; O2SAT 95
[2016-08-04] MEDS: DIPHENOXYLATE/ATROPINE 2.5 MG/0.025 MG TAB PO SCH ×4 (05:32→21:16)
[2016-08-04] MEDS: hydrOXYzine HCL 25 MG TAB PO SCH ×3 (05:32→21:16)
[2016-08-04] MEDS: ENOXAPARIN SODIUM 60 MG/0.6 ML SYRINGE SQ SCH ×2 (05:33→17:34)
[2016-08-04 08:00] VITALS: BP 105/65; PULSE 87; RESP 17; TEMP 97.6; O2SAT 97
[2016-08-04] MEDS: MULTIVITAMINS/IRON/MINERALS CHEWABLE TAB CHEW SCH (09:59)
[2016-08-04] MEDS: FERROUS SULFATE 325 MG (65 MG ELEMENTAL IRON) TAB PO SCH ×3 (09:59→17:32)
[2016-08-04] MEDS: METOPROLOL TARTRATE 25 MG TAB PO SCH ×2 (10:00→21:15)
[2016-08-04] MEDS: LACTOBACILLUS ACIDOPHILUS TAB PO SCH ×3 (10:00→17:32)
[2016-08-04] MEDS: CALCIUM/VITAMIN D 250 MG/125 U TAB PO SCH ×2 (10:01→21:15)
[2016-08-04] MEDS: buPROPion HCL 100 MG TAB PO SCH ×2 (10:01→21:15)
[2016-08-04] MEDS: FAMOTIDINE 20 MG TAB PO SCH ×2 (10:01→21:15)
[2016-08-04] MEDS: ASCORBIC ACID 500 MG TAB PO SCH ×3 (10:01→17:32)
[2016-08-04] MEDS: CARISOPRODOL 350 MG TAB PO PRN ×2 (10:02→17:32)
[2016-08-04 12:00] VITALS: BP 122/64; PULSE 77; RESP 17; TEMP 96.6; O2SAT 96
[2016-08-04 16:00] VITALS: BP 126/66; PULSE 73; RESP 18; TEMP 96.9; O2SAT 97
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
[2016-08-04 20:00] VITALS: BP 116/59; PULSE 69; RESP 18; TEMP 96.3; O2SAT 95
[2016-08-04] MEDS: KETOCONAZOLE 2% CREAM 15 GM TOPICAL SCH (21:15)
[2016-08-05] VITALS: BP 104/57; PULSE 62; RESP 18; TEMP 97; O2SAT 97
[2016-08-05] MEDS: DIPHENOXYLATE/ATROPINE 2.5 MG/0.025 MG TAB PO SCH ×4 (02:44→21:26)
[2016-08-05] MEDS: CARISOPRODOL 350 MG TAB PO PRN ×3 (02:44→21:26)
[2016-08-05] MEDS: ENOXAPARIN SODIUM 60 MG/0.6 ML SYRINGE SQ SCH ×2 (05:05→15:34)
[2016-08-05] MEDS: hydrOXYzine HCL 25 MG TAB PO SCH ×3 (05:05→21:26)
[2016-08-05 08:00] VITALS: BP 106/56; PULSE 61; RESP 18; TEMP 95.5; O2SAT 98
[2016-08-05] MEDS: MULTIVITAMINS/IRON/MINERALS CHEWABLE TAB CHEW SCH (11:07)
[2016-08-05] MEDS: buPROPion HCL 100 MG TAB PO SCH ×2 (11:07→21:26)
[2016-08-05] MEDS: ASCORBIC ACID 500 MG TAB PO SCH ×3 (11:08→18:00)
[2016-08-05] MEDS: METOPROLOL TARTRATE 25 MG TAB PO SCH ×2 (11:08→21:26)
[2016-08-05] MEDS: CALCIUM/VITAMIN D 250 MG/125 U TAB PO SCH ×2 (11:08→21:26)
[2016-08-05] MEDS: FAMOTIDINE 20 MG TAB PO SCH ×2 (11:08→21:26)
[2016-08-05] MEDS: LACTOBACILLUS ACIDOPHILUS TAB PO SCH ×3 (11:08→18:00)
[2016-08-05] MEDS: FERROUS SULFATE 325 MG (65 MG ELEMENTAL IRON) TAB PO SCH ×3 (11:08→18:00)
[2016-08-05] MEDS: KETOCONAZOLE 2% CREAM 15 GM TOPICAL SCH ×2 (11:11→21:27)
[2016-08-05 11:12] VITALS: BP 110/58; PULSE 65; RESP 16; TEMP 96.9; O2SAT 98
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
[2016-08-05 15:30] VITALS: BP 119/66; PULSE 57; RESP 18; TEMP 96.5; O2SAT 98
[2016-08-05 16:00] VITALS: RESP 16
[2016-08-05 20:00] VITALS: BP 128/68; PULSE 62; RESP 18; TEMP 98.3; O2SAT 98
[2016-08-06] VITALS: BP 127/61; PULSE 70; RESP 18; TEMP 98.6; O2SAT 98
[2016-08-06] MEDS: DIPHENOXYLATE/ATROPINE 2.5 MG/0.025 MG TAB PO SCH ×4 (05:23→21:43)
[2016-08-06] MEDS: ENOXAPARIN SODIUM 60 MG/0.6 ML SYRINGE SQ SCH ×2 (05:23→15:32)
[2016-08-06] MEDS: hydrOXYzine HCL 25 MG TAB PO SCH ×3 (05:24→21:44)
[2016-08-06] MEDS: CARISOPRODOL 350 MG TAB PO PRN ×2 (05:26→15:31)
[2016-08-06 08:00] VITALS: BP 109/59; PULSE 70; RESP 18; TEMP 96.6; O2SAT 95
[2016-08-06] MEDS: KETOCONAZOLE 2% CREAM 15 GM TOPICAL SCH ×2 (09:00→21:47)
[2016-08-06] MEDS: buPROPion HCL 100 MG TAB PO SCH ×2 (10:57→21:42)
[2016-08-06] MEDS: ASCORBIC ACID 500 MG TAB PO SCH ×3 (10:57→18:55)
[2016-08-06] MEDS: ERGOCALCIFEROL (VIT D2) 50,000 UNIT CAP PO SCH (10:57)
[2016-08-06] MEDS: FERROUS SULFATE 325 MG (65 MG ELEMENTAL IRON) TAB PO SCH ×3 (10:57→18:55)
[2016-08-06] MEDS: MULTIVITAMINS/IRON/MINERALS CHEWABLE TAB CHEW SCH (10:57)
[2016-08-06] MEDS: FAMOTIDINE 20 MG TAB PO SCH ×2 (10:57→21:42)
[2016-08-06] MEDS: METOPROLOL TARTRATE 25 MG TAB PO SCH ×2 (10:57→21:00)
[2016-08-06] MEDS: LACTOBACILLUS ACIDOPHILUS TAB PO SCH ×3 (10:57→18:55)
[2016-08-06] MEDS: CALCIUM/VITAMIN D 250 MG/125 U TAB PO SCH ×2 (10:58→21:41)
[2016-08-06 12:00] VITALS: BP 120/66; PULSE 67; RESP 18; TEMP 96.4; O2SAT 98
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
[2016-08-06 20:00] VITALS: BP 117/67; PULSE 68; RESP 18; TEMP 97; O2SAT 96
[2016-08-07] VITALS: BP 117/59; PULSE 74; RESP 18; TEMP 97.4; O2SAT 98
[2016-08-07] MEDS: CARISOPRODOL 350 MG TAB PO PRN ×3 (02:51→20:45)
[2016-08-07] MEDS: ENOXAPARIN SODIUM 60 MG/0.6 ML SYRINGE SQ SCH ×2 (02:51→16:42)
[2016-08-07] MEDS: DIPHENOXYLATE/ATROPINE 2.5 MG/0.025 MG TAB PO SCH ×4 (02:51→20:42)
[2016-08-07] MEDS: hydrOXYzine HCL 25 MG TAB PO SCH ×3 (04:39→20:43)
[2016-08-07 08:00] VITALS: BP 123/64; PULSE 86; RESP 18; TEMP 97.4; O2SAT 98
[2016-08-07] MEDS: buPROPion HCL 100 MG TAB PO SCH ×2 (09:00→20:43)
[2016-08-07] MEDS: KETOCONAZOLE 2% CREAM 15 GM TOPICAL SCH ×2 (09:00→20:43)
[2016-08-07] MEDS: METOPROLOL TARTRATE 25 MG TAB PO SCH ×2 (11:01→20:42)
[2016-08-07] MEDS: LACTOBACILLUS ACIDOPHILUS TAB PO SCH ×3 (11:01→16:42)
[2016-08-07] MEDS: MULTIVITAMINS/IRON/MINERALS CHEWABLE TAB CHEW SCH (11:01)
[2016-08-07] MEDS: FAMOTIDINE 20 MG TAB PO SCH ×2 (11:01→20:42)
[2016-08-07] MEDS: CALCIUM/VITAMIN D 250 MG/125 U TAB PO SCH ×2 (11:01→20:42)
[2016-08-07] MEDS: ASCORBIC ACID 500 MG TAB PO SCH ×3 (11:01→16:42)
[2016-08-07] MEDS: FERROUS SULFATE 325 MG (65 MG ELEMENTAL IRON) TAB PO SCH ×3 (11:01→16:42)
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
[2016-08-07 12:00] VITALS: BP 113/59; PULSE 86; RESP 18; TEMP 96.3; O2SAT 98
[2016-08-07 16:00] VITALS: BP 121/62; PULSE 76; RESP 20; TEMP 96.8; O2SAT 97
[2016-08-07 20:00] VITALS: BP 123/58; PULSE 82; RESP 18; TEMP 97.3; O2SAT 97
[2016-08-08] VITALS: BP 110/70; PULSE 71; RESP 18; TEMP 97.5; O2SAT 97
[2016-08-08] MEDS: DIPHENOXYLATE/ATROPINE 2.5 MG/0.025 MG TAB PO SCH ×4 (03:19→22:12)
[2016-08-08] MEDS: ENOXAPARIN SODIUM 60 MG/0.6 ML SYRINGE SQ SCH ×2 (03:19→15:55)
[2016-08-08] MEDS: hydrOXYzine HCL 25 MG TAB PO SCH ×3 (03:20→22:11)
[2016-08-08 08:00] VITALS: BP 118/68; PULSE 71; RESP 21; TEMP 97.1; O2SAT 95
[2016-08-08] MEDS: FERROUS SULFATE 325 MG (65 MG ELEMENTAL IRON) TAB PO SCH ×3 (09:57→18:03)
[2016-08-08] MEDS: buPROPion HCL 100 MG TAB PO SCH ×2 (09:57→22:11)
[2016-08-08] MEDS: LACTOBACILLUS ACIDOPHILUS TAB PO SCH ×3 (09:57→18:03)
[2016-08-08] MEDS: ASCORBIC ACID 500 MG TAB PO SCH ×3 (09:57→18:03)
[2016-08-08] MEDS: FAMOTIDINE 20 MG TAB PO SCH ×2 (09:57→22:11)
[2016-08-08] MEDS: METOPROLOL TARTRATE 25 MG TAB PO SCH ×2 (09:57→21:00)
[2016-08-08] MEDS: MULTIVITAMINS/IRON/MINERALS CHEWABLE TAB CHEW SCH (09:57)
[2016-08-08] MEDS: CALCIUM/VITAMIN D 250 MG/125 U TAB PO SCH ×2 (09:57→22:10)
[2016-08-08] MEDS: CARISOPRODOL 350 MG TAB PO PRN ×2 (10:00→22:16)
[2016-08-08] MEDS: KETOCONAZOLE 2% CREAM 15 GM TOPICAL SCH ×2 (10:04→21:00)
[2016-08-08 12:00] VITALS: BP 127/70; PULSE 82; RESP 19; TEMP 96.7; O2SAT 96
[2016-08-08] MEDS: LORazepam 1 MG TAB PO PRN (12:13)
[2016-08-08] MEDS: POLYMYXIN/TRIMETHOPRIM OPHT SOLN 10 ML BTL RIGHT EYE SCH ×2 (12:13→18:03)
--- NOTE | 2016-08-08 12:15 | PD.CONS ---
Provisional Diagnosis Admission Date Oct 07, 2015 at 21:56 [place]. Adjustment disorder with depressed mood History of Present Illness Service Psychiatry Consult Requested By Hx of depression. Started on Wellbutrin 200 mg twice a day last week, by this physician. Patient needs to give medication more time to work.` Previous consult by Dr. Jacome. 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 - 10/03/15 Active Scripts Clindamycin Hcl 150 Mg Cap2 Tab PO QID #80 CAP Prov:Wei Nathan MD 06/26/15 Sulfamethoxazole-Trimethoprim DS (Bactrim DS)1 Tab Tab1 Tab PO BID #20 TAB Prov:Wei Nathan MD 06/26/15 Reported Medications Multiple Vitamin (Multivitamin)1 Tab Tab1 Tab PO DAILY 06/26/15 Hydromorphone 8 mg (Dilaudid 8 mg)8 Mg Tab8 Mg PO Q6H 05/05/14 Bisacodyl (Dulcolax 5 Mg Ec Tab)5 Mg Tabec5 Mg PO DAILY PRN (CONSTIPATION) 05/05/14 Ranitidine HCl (Zantac 150 Mg Tab)150 Mg [id number] Mg PO BID 05/05/14 Current Medications Medications (Trade) Dose Ordered Sig/Estevan Route Start Time Stop Time Status Last Admin Miscellaneous Information UNSCH PRN XX 10/11/15 16:00 (Benadryl) 25 mg Q6H PRN PO 10/11/15 16:00 03/07/16 17:54 (Narcan Inj) 0.4 mg UNSCH PRN IV 10/11/15 16:00 (Flintstones Complete) 1 tab DAILY CHEW 10/20/15 16:45 08/08/16 09:57 (Lovenox Inj) 60 mg Q12H SQ 10/22/15 04:00 08/08/16 03:19 (Roxicodone) 10 mg Q3H PRN PO 11/10/15 12:00 07/21/16 19:04 (Roxicodone) 20 mg Q6H PRN PO 11/10/15 12:00 08/08/16 10:00 (Dilaudid) 4 mg Q4H PRN PO 11/18/15 08:30 04/14/16 12:34 (Dulcolax Ec) 10 mg DAILY PRN PO 11/23/15 09:00 12/26/15 05:05 (Pepcid) 20 mg Q12HR PO 11/22/15 09:00 08/08/16 09:57 (Lopressor) 25 mg Q12HR PO 12/20/15 21:00 08/08/16 09:57 (Phazyme Chew) 125 mg Q8HR PRN PO 01/08/16 10:15 (Oscal-D 250-125) 250 mg Q12HR PO 01/16/16 09:00 08/08/16 09:57 (Drisdol) 50,000 units Q7D PO 01/16/16 09:00 08/06/16 10:57 (Soma) 350 mg Q8H PRN PO 02/24/16 23:30 08/08/16 10:00 (Tears Naturale Opth Soln) 1 drop TID PRN EACH EYE 03/03/16 13:30 03/11/16 09:03 (Vasotec Inj) 1.25 mg Q6H PRN IV 03/25/16 09:30 (Catapres) 0.1 mg Q6H PRN PO 03/25/16 09:30 (Antivert) 25 mg Q8H PRN PO 05/14/16 09:30 (Lactinex) 1 tab TID PO 05/20/16 13:00 08/08/16 09:57 (Questran 4 Gm Pkt) 4 gm Q8HR PRN PO 06/15/16 14:00 06/26/16 08:01 (Zofran Odt) 4 mg Q6H PRN PO 07/05/16 14:00 07/13/16 18:13 (Atarax) 25 mg Q8H PO 07/11/16 14:00 08/08/16 03:20 (Lomotil Tab) 1 tab Q6H PO 07/12/16 09:00 08/08/16 09:57 (Ferrous Sulfate) 325 mg TID PO 07/13/16 09:00 08/08/16 09:57 (Vitamin C) 500 mg TID PO 07/13/16 09:00 08/08/16 09:57 (Ativan) 1 mg DAILY PRN PO 07/19/16 13:15 (Wellbutrin) 200 mg Q12HR PO 08/02/16 21:00 08/08/16 09:57 (Nizoral 2% Cream) 1 applic Q12HR TOPICAL 08/04/16 21:00 08/18/16 20:59 08/08/16 10:04 (Polytrim Opht Soln) 1 drop Q6HR RIGHT EYE 08/08/16 12:00 Family History See previous consult for below information. Physical Exam Vital Signs Vital Signs Date Time Temp Pulse Resp B/P Pulse Ox O2 Delivery O2 Flow Rate FiO2 08/08/16 08:00 97.1 71 21 118/68 95 I/O 08/07/16 08/07/16 08/07/16 07:59 15:59 23:59 Intake Total 360 ml 0 ml 360 ml Output Total 250 ml 850 ml Balance 110 ml 0 ml -490 ml Mental Status Examination Speech: Unremarkable Orientation: x3 Memory: Unremarkable Thought Process: Logical Thought Content: Unremarkable Hallucination Type: None Attention and Concentration: Good Suicidal Ideation: Yes Previous Suicide Attempts: No Homicidal Ideation: No Previous Homicide Attempts: No Insight: Fair Judgment: Unrealistic Affect: Irritable, Anxious, Sad Mood: Sad, Anxious Motor Activity: Normal gait Assessment & Plan Problem List: (1) Adjustment disorder with depressed mood ICD Code: F43.21 Assessment & Plan Estimated LOS: days recommend continue Wellbutrin and give more time to work. Uli Mcadams MD Aug 08, 2016 12:14
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
[2016-08-08 16:00] VITALS: BP 119/67; PULSE 77; RESP 17; TEMP 96.8; O2SAT 96
[2016-08-08 21:17] VITALS: BP 114/64; PULSE 64; RESP 18; TEMP 98.2; O2SAT 95
[2016-08-09] MEDS: POLYMYXIN/TRIMETHOPRIM OPHT SOLN 10 ML BTL RIGHT EYE SCH ×4 (00:49→17:31)
[2016-08-09 01:30] VITALS: BP 120/75; PULSE 73; RESP 18; TEMP 97.6; O2SAT 94
[2016-08-09] MEDS: ENOXAPARIN SODIUM 60 MG/0.6 ML SYRINGE SQ SCH ×2 (03:58→15:26)
[2016-08-09] MEDS: DIPHENOXYLATE/ATROPINE 2.5 MG/0.025 MG TAB PO SCH ×4 (03:58→21:07)
[2016-08-09] MEDS: hydrOXYzine HCL 25 MG TAB PO SCH ×3 (05:06→21:14)
[2016-08-09 08:00] VITALS: BP 127/65; PULSE 90; RESP 17; TEMP 96.4; O2SAT 97
[2016-08-09] MEDS: FAMOTIDINE 20 MG TAB PO SCH ×2 (09:33→21:07)
[2016-08-09] MEDS: buPROPion HCL 100 MG TAB PO SCH ×2 (09:33→21:07)
[2016-08-09] MEDS: CALCIUM/VITAMIN D 250 MG/125 U TAB PO SCH ×2 (09:33→21:07)
[2016-08-09] MEDS: MULTIVITAMINS/IRON/MINERALS CHEWABLE TAB CHEW SCH (09:33)
[2016-08-09] MEDS: ASCORBIC ACID 500 MG TAB PO SCH ×3 (09:33→17:31)
[2016-08-09] MEDS: LACTOBACILLUS ACIDOPHILUS TAB PO SCH ×3 (09:33→17:31)
[2016-08-09] MEDS: METOPROLOL TARTRATE 25 MG TAB PO SCH ×2 (09:33→21:07)
[2016-08-09] MEDS: CARISOPRODOL 350 MG TAB PO PRN ×2 (09:33→21:14)
[2016-08-09] MEDS: FERROUS SULFATE 325 MG (65 MG ELEMENTAL IRON) TAB PO SCH ×3 (09:33→17:31)
[2016-08-09] MEDS: KETOCONAZOLE 2% CREAM 15 GM TOPICAL SCH ×2 (09:35→21:08)
[2016-08-09] MEDS: LORazepam 1 MG TAB PO PRN (10:16)
[2016-08-09 12:00] VITALS: BP 129/59; PULSE 72; RESP 16; TEMP 96.1; O2SAT 95
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
[2016-08-09 16:00] VITALS: BP 115/62; PULSE 75; RESP 19; TEMP 96.3; O2SAT 96
[2016-08-09 20:00] VITALS: BP 117/64; PULSE 72; RESP 18; TEMP 97.8; O2SAT 97
[2016-08-10] VITALS: BP 100/52; PULSE 73; RESP 18; TEMP 97.7; O2SAT 97
[2016-08-10] MEDS: DIPHENOXYLATE/ATROPINE 2.5 MG/0.025 MG TAB PO SCH ×2 (04:28→09:51)
[2016-08-10] MEDS: ENOXAPARIN SODIUM 60 MG/0.6 ML SYRINGE SQ SCH ×2 (04:28→16:42)
[2016-08-10] MEDS: hydrOXYzine HCL 25 MG TAB PO SCH ×3 (05:40→22:45)
[2016-08-10] MEDS: CARISOPRODOL 350 MG TAB PO PRN ×2 (05:40→22:45)
[2016-08-10] MEDS: POLYMYXIN/TRIMETHOPRIM OPHT SOLN 10 ML BTL RIGHT EYE SCH ×3 (05:42→10:59)
[2016-08-10 08:00] VITALS: BP 122/63; PULSE 82; RESP 17; TEMP 96.6; O2SAT 98
[2016-08-10] MEDS: KETOCONAZOLE 2% CREAM 15 GM TOPICAL SCH ×2 (09:00→21:00)
[2016-08-10] MEDS: LACTOBACILLUS ACIDOPHILUS TAB PO SCH ×3 (09:51→16:42)
[2016-08-10] MEDS: FERROUS SULFATE 325 MG (65 MG ELEMENTAL IRON) TAB PO SCH ×3 (09:51→16:42)
[2016-08-10] MEDS: MULTIVITAMINS/IRON/MINERALS CHEWABLE TAB CHEW SCH (09:51)
[2016-08-10] MEDS: METOPROLOL TARTRATE 25 MG TAB PO SCH ×2 (09:51→22:45)
[2016-08-10] MEDS: CALCIUM/VITAMIN D 250 MG/125 U TAB PO SCH ×2 (09:51→22:44)
[2016-08-10] MEDS: FAMOTIDINE 20 MG TAB PO SCH ×2 (09:51→22:45)
[2016-08-10] MEDS: ASCORBIC ACID 500 MG TAB PO SCH ×3 (09:51→16:42)
[2016-08-10] MEDS: buPROPion HCL 100 MG TAB PO SCH ×2 (09:51→22:44)
[2016-08-10] MEDS: LORazepam 1 MG TAB PO PRN (10:59)
[2016-08-10 12:00] VITALS: BP 119/71; PULSE 77; RESP 18; TEMP 96; O2SAT 96
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
[2016-08-10 16:00] VITALS: BP 111/55; PULSE 78; RESP 20; TEMP 95.9; O2SAT 96
[2016-08-10] MEDS: POLYMYXIN/TRIMETHOPRIM OPHT SOLN 10 ML BTL EACH EYE SCH (16:42)
[2016-08-10 20:00] VITALS: BP 108/68; PULSE 65; RESP 18; TEMP 97.2; O2SAT 98
[2016-08-11] VITALS: BP 98/62; PULSE 75; RESP 18; TEMP 97.9; O2SAT 99
[2016-08-11] MEDS: POLYMYXIN/TRIMETHOPRIM OPHT SOLN 10 ML BTL EACH EYE SCH ×5 (00:06→21:25)
[2016-08-11] MEDS: hydrOXYzine HCL 25 MG TAB PO SCH ×3 (05:28→21:22)
[2016-08-11] MEDS: ENOXAPARIN SODIUM 60 MG/0.6 ML SYRINGE SQ SCH ×2 (05:28→16:15)
[2016-08-11 08:00] VITALS: BP 111/64; PULSE 77; RESP 16; TEMP 97.1; O2SAT 96
[2016-08-11] MEDS: LACTOBACILLUS ACIDOPHILUS TAB PO SCH ×3 (09:08→17:45)
[2016-08-11] MEDS: CALCIUM/VITAMIN D 250 MG/125 U TAB PO SCH ×2 (09:08→21:22)
[2016-08-11] MEDS: buPROPion HCL 100 MG TAB PO SCH ×2 (09:08→21:23)
[2016-08-11] MEDS: MULTIVITAMINS/IRON/MINERALS CHEWABLE TAB CHEW SCH (09:08)
[2016-08-11] MEDS: METOPROLOL TARTRATE 25 MG TAB PO SCH ×2 (09:08→21:23)
[2016-08-11] MEDS: ASCORBIC ACID 500 MG TAB PO SCH ×3 (09:08→17:45)
[2016-08-11] MEDS: FERROUS SULFATE 325 MG (65 MG ELEMENTAL IRON) TAB PO SCH ×3 (09:08→17:45)
[2016-08-11] MEDS: FAMOTIDINE 20 MG TAB PO SCH ×2 (09:08→21:23)
[2016-08-11] MEDS: KETOCONAZOLE 2% CREAM 15 GM TOPICAL SCH ×2 (09:09→21:25)
[2016-08-11] MEDS: CARISOPRODOL 350 MG TAB PO PRN ×2 (11:35→21:31)
[2016-08-11 12:00] VITALS: BP 97/56; PULSE 75; RESP 16; TEMP 96.9; O2SAT 96
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
[2016-08-11 15:00] VITALS: BP 112/68; PULSE 80; RESP 16; TEMP 96.2; O2SAT 96
[2016-08-11 20:00] VITALS: BP 135/60; PULSE 77; RESP 20; TEMP 96.2; O2SAT 96
[2016-08-12 00:14] VITALS: BP 129/60; PULSE 72; RESP 20; TEMP 96.2; O2SAT 95
[2016-08-12] MEDS: ENOXAPARIN SODIUM 60 MG/0.6 ML SYRINGE SQ SCH ×2 (04:01→15:43)
[2016-08-12] MEDS: POLYMYXIN/TRIMETHOPRIM OPHT SOLN 10 ML BTL EACH EYE SCH ×4 (05:22→23:49)
[2016-08-12] MEDS: hydrOXYzine HCL 25 MG TAB PO SCH ×3 (05:22→21:17)
[2016-08-12 08:00] VITALS: BP 120/58; PULSE 78; RESP 18; TEMP 96.5; O2SAT 97
[2016-08-12] MEDS: ASCORBIC ACID 500 MG TAB PO SCH ×3 (08:56→17:10)
[2016-08-12] MEDS: CARISOPRODOL 350 MG TAB PO PRN ×2 (08:56→17:10)
[2016-08-12] MEDS: FAMOTIDINE 20 MG TAB PO SCH ×2 (08:56→19:59)
[2016-08-12] MEDS: FERROUS SULFATE 325 MG (65 MG ELEMENTAL IRON) TAB PO SCH ×3 (08:56→17:10)
[2016-08-12] MEDS: LACTOBACILLUS ACIDOPHILUS TAB PO SCH ×3 (08:56→17:10)
[2016-08-12] MEDS: METOPROLOL TARTRATE 25 MG TAB PO SCH ×2 (08:56→19:59)
[2016-08-12] MEDS: CALCIUM/VITAMIN D 250 MG/125 U TAB PO SCH ×2 (08:56→19:59)
[2016-08-12] MEDS: MULTIVITAMINS/IRON/MINERALS CHEWABLE TAB CHEW SCH (08:56)
[2016-08-12] MEDS: buPROPion HCL 100 MG TAB PO SCH ×2 (08:56→19:59)
[2016-08-12] MEDS: KETOCONAZOLE 2% CREAM 15 GM TOPICAL SCH ×2 (09:00→20:00)
[2016-08-12 09:39] LABS: HEMATOCRIT 33.1 % (39.0-51.0); MEAN CELL VOLUME 76.5 FL (80.0-100.0); MEAN CORPUSCULAR HEMOGLOBIN 24.9 PG (27.0-34.0); MEAN CORPUSCULAR HGB CONC 32.5 % (32.0-36.0); PLATELET COUNT 204 TH/MM3 (150-450); RED BLOOD COUNT 4.32 MIL/MM3 (4.50-5.90); RED CELL DISTRIBUTION WIDTH 16.9 % (11.6-17.2); REVIEW FLAG FINAL; WHITE BLOOD COUNT 6.3 TH/MM3 (4.0-11.0)
[2016-08-12 10:08] LABS: ALT (GPT) 12 U/L (12-78); ANION GAP 7 MEQ/L (5-15); AST (GOT) 9 U/L (15-37); BICARBONATE 26.9 MEQ/L (21.0-32.0); BLOOD UREA NITROGEN 11 MG/DL (7-18); CHLORIDE 106 MEQ/L (98-107); GLOMERULAR FILTRATION RATE 78 ML/MIN (>89); POTASSIUM 4.1 MEQ/L (3.5-5.1); SODIUM (NA) 140 MEQ/L (136-145)
[2016-08-12 10:11] LABS: ALKALINE PHOSPHATASE 72 U/L (45-117); TOTAL BILIRUBIN ADULT 0.2 MG/DL (0.2-1.0)
[2016-08-12 12:00] VITALS: BP 104/56; PULSE 69; RESP 20; TEMP 96.7; O2SAT 99
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
[2016-08-12 16:00] VITALS: BP 126/67; PULSE 64; RESP 20; TEMP 95.7; O2SAT 98
[2016-08-12 20:00] VITALS: BP 122/58; PULSE 77; RESP 17; TEMP 96.8; O2SAT 99
[2016-08-13] VITALS: BP 113/74; PULSE 90; RESP 16; TEMP 97.5; O2SAT 95
[2016-08-13] MEDS: CARISOPRODOL 350 MG TAB PO PRN ×3 (01:10→20:19)
[2016-08-13] MEDS: hydrOXYzine HCL 25 MG TAB PO SCH ×3 (05:50→21:43)
[2016-08-13] MEDS: POLYMYXIN/TRIMETHOPRIM OPHT SOLN 10 ML BTL EACH EYE SCH ×4 (05:51→23:52)
[2016-08-13] MEDS: ENOXAPARIN SODIUM 60 MG/0.6 ML SYRINGE SQ SCH ×2 (05:51→16:41)
[2016-08-13 08:00] VITALS: BP 140/74; PULSE 72; RESP 16; TEMP 97.3; O2SAT 98
[2016-08-13] MEDS: KETOCONAZOLE 2% CREAM 15 GM TOPICAL SCH ×2 (08:21→20:20)
[2016-08-13] MEDS: ERGOCALCIFEROL (VIT D2) 50,000 UNIT CAP PO SCH (08:23)
[2016-08-13] MEDS: CALCIUM/VITAMIN D 250 MG/125 U TAB PO SCH ×2 (08:23→20:20)
[2016-08-13] MEDS: MULTIVITAMINS/IRON/MINERALS CHEWABLE TAB CHEW SCH (08:23)
[2016-08-13] MEDS: FERROUS SULFATE 325 MG (65 MG ELEMENTAL IRON) TAB PO SCH ×3 (08:23→17:35)
[2016-08-13] MEDS: LACTOBACILLUS ACIDOPHILUS TAB PO SCH ×3 (08:23→17:35)
[2016-08-13] MEDS: ASCORBIC ACID 500 MG TAB PO SCH ×3 (08:23→17:35)
[2016-08-13] MEDS: FAMOTIDINE 20 MG TAB PO SCH ×2 (08:23→20:20)
[2016-08-13] MEDS: METOPROLOL TARTRATE 25 MG TAB PO SCH ×2 (08:23→20:20)
[2016-08-13] MEDS: buPROPion HCL 100 MG TAB PO SCH ×2 (08:23→20:19)
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
[2016-08-13 12:00] VITALS: BP 109/59; PULSE 64; RESP 16; TEMP 97.4; O2SAT 97
[2016-08-13 16:00] VITALS: BP 118/66; PULSE 79; RESP 16; TEMP 97; O2SAT 99
[2016-08-13 20:00] VITALS: BP 128/83; PULSE 69; RESP 20; TEMP 96.5; O2SAT 99
[2016-08-14] VITALS: BP 100/62; PULSE 68; RESP 20; TEMP 97.6; O2SAT 98
[2016-08-14] MEDS: hydrOXYzine HCL 25 MG TAB PO SCH (06:05)
[2016-08-14] MEDS: POLYMYXIN/TRIMETHOPRIM OPHT SOLN 10 ML BTL EACH EYE SCH ×4 (06:06→20:26)
[2016-08-14] MEDS: ENOXAPARIN SODIUM 60 MG/0.6 ML SYRINGE SQ SCH ×2 (06:06→16:45)
[2016-08-14 08:00] VITALS: BP 112/72; PULSE 67; RESP 12; TEMP 97.2; O2SAT 97
[2016-08-14] MEDS: CALCIUM/VITAMIN D 250 MG/125 U TAB PO SCH ×2 (09:00→20:25)
[2016-08-14] MEDS: KETOCONAZOLE 2% CREAM 15 GM TOPICAL SCH ×2 (09:00→20:25)
[2016-08-14] MEDS: LACTOBACILLUS ACIDOPHILUS TAB PO SCH ×3 (09:00→16:45)
[2016-08-14] MEDS: METOPROLOL TARTRATE 25 MG TAB PO SCH ×2 (09:00→20:24)
[2016-08-14] MEDS: ASCORBIC ACID 500 MG TAB PO SCH ×3 (09:00→16:45)
[2016-08-14] MEDS: MULTIVITAMINS/IRON/MINERALS CHEWABLE TAB CHEW SCH (09:00)
[2016-08-14] MEDS: buPROPion HCL 100 MG TAB PO SCH ×2 (09:00→20:25)
[2016-08-14] MEDS: FERROUS SULFATE 325 MG (65 MG ELEMENTAL IRON) TAB PO SCH ×3 (09:00→16:45)
[2016-08-14] MEDS: FAMOTIDINE 20 MG TAB PO SCH ×2 (09:00→20:25)
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
[2016-08-14 12:00] VITALS: BP 117/65; PULSE 62; RESP 14; TEMP 97.4; O2SAT 98
[2016-08-14] MEDS: CARISOPRODOL 350 MG TAB PO PRN ×2 (13:58→22:55)
[2016-08-14 16:00] VITALS: BP 106/63; PULSE 71; RESP 14; TEMP 97.4; O2SAT 97
[2016-08-14 20:00] VITALS: BP 108/75; PULSE 84; RESP 18; TEMP 97.7; O2SAT 98
[2016-08-14] MEDS: LACTIC ACID (AMMONIUM LACTATE) 12% LOTION 225 GM BTL TOPICAL SCH (20:25)
[2016-08-15] VITALS: BP 122/86; PULSE 99; RESP 18; TEMP 97.3; O2SAT 96
[2016-08-15] MEDS: ENOXAPARIN SODIUM 60 MG/0.6 ML SYRINGE SQ SCH ×2 (04:41→17:13)
[2016-08-15] MEDS: POLYMYXIN/TRIMETHOPRIM OPHT SOLN 10 ML BTL EACH EYE SCH (04:41)
[2016-08-15 05:11] LABS: HEMATOCRIT 34.2 % (39.0-51.0); MEAN CELL VOLUME 75.5 FL (80.0-100.0); MEAN CORPUSCULAR HEMOGLOBIN 25.2 PG (27.0-34.0); MEAN CORPUSCULAR HGB CONC 33.4 % (32.0-36.0); PLATELET COUNT 215 TH/MM3 (150-450); RED BLOOD COUNT 4.53 MIL/MM3 (4.50-5.90); REVIEW FLAG FINAL; WHITE BLOOD COUNT 7.5 TH/MM3 (4.0-11.0)
[2016-08-15 05:31] LABS: BICARBONATE 26.6 MEQ/L (21.0-32.0); MAGNESIUM 2.3 MG/DL (1.5-2.5); POTASSIUM 3.8 MEQ/L (3.5-5.1)
[2016-08-15 08:00] VITALS: BP 137/86; PULSE 106; RESP 19; TEMP 96.9; O2SAT 98
[2016-08-15] MEDS: MULTIVITAMINS/IRON/MINERALS CHEWABLE TAB CHEW SCH (08:27)
[2016-08-15] MEDS: FAMOTIDINE 20 MG TAB PO SCH ×2 (08:27→21:00)
[2016-08-15] MEDS: FERROUS SULFATE 325 MG (65 MG ELEMENTAL IRON) TAB PO SCH ×3 (08:27→17:13)
[2016-08-15] MEDS: LACTOBACILLUS ACIDOPHILUS TAB PO SCH ×3 (08:27→17:13)
[2016-08-15] MEDS: METOPROLOL TARTRATE 25 MG TAB PO SCH ×2 (08:27→22:38)
[2016-08-15] MEDS: ASCORBIC ACID 500 MG TAB PO SCH ×3 (08:27→17:13)
[2016-08-15] MEDS: CALCIUM/VITAMIN D 250 MG/125 U TAB PO SCH ×2 (08:27→22:38)
[2016-08-15] MEDS: buPROPion HCL 100 MG TAB PO SCH ×2 (08:27→22:37)
[2016-08-15] MEDS: LACTIC ACID (AMMONIUM LACTATE) 12% LOTION 225 GM BTL TOPICAL SCH (08:28)
[2016-08-15] MEDS: CARISOPRODOL 350 MG TAB PO PRN ×2 (08:28→22:38)
[2016-08-15] MEDS: KETOCONAZOLE 2% CREAM 15 GM TOPICAL SCH ×2 (08:28→21:00)
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
[2016-08-15 12:00] VITALS: BP 115/67; PULSE 73; RESP 18; TEMP 96.9; O2SAT 98
[2016-08-15 16:00] VITALS: BP 121/79; PULSE 70; RESP 20; TEMP 96.9; O2SAT 99
[2016-08-15 20:22] VITALS: BP 125/83; PULSE 70; RESP 20; TEMP 96.7; O2SAT 97
[2016-08-16 00:14] VITALS: BP 148/89; PULSE 70; RESP 18; TEMP 97.9; O2SAT 98
[2016-08-16] MEDS: ENOXAPARIN SODIUM 60 MG/0.6 ML SYRINGE SQ SCH ×2 (04:34→17:47)
[2016-08-16 08:00] VITALS: BP 108/63; PULSE 76; RESP 16; TEMP 97.3; O2SAT 96
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
[2016-08-16] MEDS: METOPROLOL TARTRATE 25 MG TAB PO SCH ×2 (09:00→20:33)
[2016-08-16] MEDS: buPROPion HCL 100 MG TAB PO SCH ×2 (09:22→20:33)
[2016-08-16] MEDS: LACTOBACILLUS ACIDOPHILUS TAB PO SCH ×3 (09:22→17:47)
[2016-08-16] MEDS: CALCIUM/VITAMIN D 250 MG/125 U TAB PO SCH ×2 (09:22→20:33)
[2016-08-16] MEDS: KETOCONAZOLE 2% CREAM 15 GM TOPICAL SCH ×2 (09:22→20:34)
[2016-08-16] MEDS: FERROUS SULFATE 325 MG (65 MG ELEMENTAL IRON) TAB PO SCH ×3 (09:22→17:47)
[2016-08-16] MEDS: MULTIVITAMINS/IRON/MINERALS CHEWABLE TAB CHEW SCH (09:22)
[2016-08-16] MEDS: ASCORBIC ACID 500 MG TAB PO SCH ×3 (09:22→17:47)
[2016-08-16] MEDS: FAMOTIDINE 20 MG TAB PO SCH ×2 (09:22→20:33)
[2016-08-16] MEDS: CARISOPRODOL 350 MG TAB PO PRN ×2 (09:26→20:33)
[2016-08-16 12:00] VITALS: BP 114/63; PULSE 77; RESP 16; TEMP 98; O2SAT 97
[2016-08-16 16:00] VITALS: BP 113/66; PULSE 74; RESP 16; TEMP 96.4; O2SAT 98
[2016-08-16 20:31] VITALS: BP 129/72; PULSE 70; RESP 17; TEMP 96.2; O2SAT 95
[2016-08-17 00:13] VITALS: BP 129/66; PULSE 72; RESP 18; TEMP 97.3; O2SAT 95
[2016-08-17] MEDS: ENOXAPARIN SODIUM 60 MG/0.6 ML SYRINGE SQ SCH ×2 (04:19→17:12)
[2016-08-17] MEDS: CARISOPRODOL 350 MG TAB PO PRN ×2 (04:20→14:36)
[2016-08-17 08:00] VITALS: BP 108/64; PULSE 76; RESP 16; TEMP 95.5; O2SAT 99
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
[2016-08-17] MEDS: MULTIVITAMINS/IRON/MINERALS CHEWABLE TAB CHEW SCH (09:00)
[2016-08-17] MEDS: ASCORBIC ACID 500 MG TAB PO SCH ×3 (09:00→17:12)
[2016-08-17] MEDS: METOPROLOL TARTRATE 25 MG TAB PO SCH ×2 (09:00→21:32)
[2016-08-17] MEDS: FAMOTIDINE 20 MG TAB PO SCH ×2 (09:00→21:31)
[2016-08-17] MEDS: buPROPion HCL 100 MG TAB PO SCH ×2 (09:00→21:31)
[2016-08-17] MEDS: KETOCONAZOLE 2% CREAM 15 GM TOPICAL SCH ×2 (09:00→21:00)
[2016-08-17] MEDS: CALCIUM/VITAMIN D 250 MG/125 U TAB PO SCH ×2 (09:00→21:31)
[2016-08-17] MEDS: FERROUS SULFATE 325 MG (65 MG ELEMENTAL IRON) TAB PO SCH ×3 (09:00→17:12)
[2016-08-17] MEDS: LACTOBACILLUS ACIDOPHILUS TAB PO SCH ×3 (09:00→17:12)
[2016-08-17 12:00] VITALS: BP 110/60; PULSE 70; RESP 16; TEMP 96.4; O2SAT 94
[2016-08-17 16:00] VITALS: BP 127/69; PULSE 70; RESP 16; TEMP 96.5; O2SAT 98
[2016-08-17 19:55] VITALS: BP 114/59; PULSE 91; RESP 19; TEMP 97.7; O2SAT 96
[2016-08-17 23:50] VITALS: BP 111/57; PULSE 74; RESP 19; TEMP 96.9; O2SAT 97
[2016-08-18] MEDS: CARISOPRODOL 350 MG TAB PO PRN ×2 (00:52→10:59)
[2016-08-18] MEDS: ENOXAPARIN SODIUM 60 MG/0.6 ML SYRINGE SQ SCH ×2 (03:44→18:49)
[2016-08-18 04:30] VITALS: BP 107/54; PULSE 77; RESP 19; TEMP 97.9; O2SAT 97
[2016-08-18 08:00] VITALS: BP 120/66; PULSE 80; RESP 17; TEMP 97.5; O2SAT 97
[2016-08-18] MEDS: KETOCONAZOLE 2% CREAM 15 GM TOPICAL SCH (09:00)
[2016-08-18] MEDS: LACTOBACILLUS ACIDOPHILUS TAB PO SCH ×3 (10:57→18:49)
[2016-08-18] MEDS: FAMOTIDINE 20 MG TAB PO SCH ×2 (10:58→20:20)
[2016-08-18] MEDS: buPROPion HCL 100 MG TAB PO SCH ×2 (10:58→20:20)
[2016-08-18] MEDS: ASCORBIC ACID 500 MG TAB PO SCH ×3 (10:58→18:49)
[2016-08-18] MEDS: CALCIUM/VITAMIN D 250 MG/125 U TAB PO SCH ×2 (10:58→20:20)
[2016-08-18] MEDS: FERROUS SULFATE 325 MG (65 MG ELEMENTAL IRON) TAB PO SCH ×3 (10:58→18:49)
[2016-08-18] MEDS: MULTIVITAMINS/IRON/MINERALS CHEWABLE TAB CHEW SCH (10:59)
[2016-08-18] MEDS: METOPROLOL TARTRATE 25 MG TAB PO SCH ×2 (10:59→20:20)
[2016-08-18 12:00] VITALS: BP 128/70; PULSE 77; RESP 17; TEMP 97.3; O2SAT 97
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
[2016-08-18 16:00] VITALS: BP 114/68; PULSE 80; RESP 16; TEMP 96.7; O2SAT 99
[2016-08-18 20:12] VITALS: BP 149/84; PULSE 69; RESP 18; TEMP 96.3; O2SAT 98
[2016-08-19 00:01] VITALS: BP 118/69; PULSE 64; RESP 18; TEMP 96.7; O2SAT 94
[2016-08-19] MEDS: ENOXAPARIN SODIUM 60 MG/0.6 ML SYRINGE SQ SCH ×2 (05:10→16:00)
[2016-08-19] MEDS: CARISOPRODOL 350 MG TAB PO PRN ×2 (06:03→14:03)
[2016-08-19 08:00] VITALS: BP 127/73; PULSE 75; RESP 16; TEMP 97.9; O2SAT 96
[2016-08-19] MEDS: MULTIVITAMINS/IRON/MINERALS CHEWABLE TAB CHEW SCH (10:51)
[2016-08-19] MEDS: buPROPion HCL 100 MG TAB PO SCH ×2 (10:51→19:56)
[2016-08-19] MEDS: FAMOTIDINE 20 MG TAB PO SCH ×2 (10:51→19:56)
[2016-08-19] MEDS: CALCIUM/VITAMIN D 250 MG/125 U TAB PO SCH ×2 (10:52→19:55)
[2016-08-19] MEDS: FERROUS SULFATE 325 MG (65 MG ELEMENTAL IRON) TAB PO SCH ×3 (10:52→18:35)
[2016-08-19] MEDS: ASCORBIC ACID 500 MG TAB PO SCH ×3 (10:52→18:35)
[2016-08-19] MEDS: METOPROLOL TARTRATE 25 MG TAB PO SCH ×2 (10:52→19:55)
[2016-08-19] MEDS: LACTOBACILLUS ACIDOPHILUS TAB PO SCH ×3 (10:52→18:35)
[2016-08-19 12:00] VITALS: BP 122/66; PULSE 70; RESP 16; TEMP 96.8; O2SAT 97
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
[2016-08-19 16:00] VITALS: BP 116/60; PULSE 73; RESP 17; TEMP 97.5; O2SAT 96
[2016-08-19 20:25] VITALS: BP 140/85; PULSE 70; RESP 18; TEMP 96.4; O2SAT 96
[2016-08-20 00:11] VITALS: BP 133/84; PULSE 90; RESP 18; TEMP 96.9; O2SAT 97
[2016-08-20] MEDS: CARISOPRODOL 350 MG TAB PO PRN ×3 (01:05→23:47)
[2016-08-20] MEDS: ENOXAPARIN SODIUM 60 MG/0.6 ML SYRINGE SQ SCH ×2 (04:32→15:58)
[2016-08-20 08:00] VITALS: BP 131/73; PULSE 85; RESP 20; TEMP 99.2; O2SAT 98
[2016-08-20] MEDS: METOPROLOL TARTRATE 25 MG TAB PO SCH ×2 (09:00→21:04)
[2016-08-20] MEDS: ERGOCALCIFEROL (VIT D2) 50,000 UNIT CAP PO SCH (09:00)
[2016-08-20] MEDS: LACTOBACILLUS ACIDOPHILUS TAB PO SCH ×3 (11:28→18:00)
[2016-08-20] MEDS: MULTIVITAMINS/IRON/MINERALS CHEWABLE TAB CHEW SCH (11:28)
[2016-08-20] MEDS: buPROPion HCL 100 MG TAB PO SCH ×2 (11:28→21:05)
[2016-08-20] MEDS: CALCIUM/VITAMIN D 250 MG/125 U TAB PO SCH ×2 (11:29→21:05)
[2016-08-20] MEDS: FERROUS SULFATE 325 MG (65 MG ELEMENTAL IRON) TAB PO SCH ×3 (11:29→18:00)
[2016-08-20] MEDS: FAMOTIDINE 20 MG TAB PO SCH ×2 (11:29→21:05)
[2016-08-20] MEDS: ASCORBIC ACID 500 MG TAB PO SCH ×3 (11:30→18:00)
[2016-08-20 12:00] VITALS: BP 126/74; PULSE 86; RESP 20; TEMP 98.9; O2SAT 97
[2016-08-20 16:00] VITALS: BP 104/55; PULSE 95; RESP 18; TEMP 100; O2SAT 97
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
[2016-08-20 20:00] VITALS: BP 141/66; PULSE 105; RESP 20; TEMP 101.5; O2SAT 98
[2016-08-20 21:02] VITALS: TEMP 100.2
[2016-08-21] VITALS (8 sets, daily range): BP systolic 99–133; BP diastolic 52–72; PULSE 86–129; RESP 18–20; TEMP 99–101.6; O2SAT 95–99
--- NOTE | 2016-08-21 03:26 | RADRPT ---
EXAM DATE/TIME: 08/21/2016 02:40 [place] COMPARISON: CHEST SINGLE AP, October 17, 2015, 8:21. INDICATIONS : Fever. MEDICAL HISTORY : Cardiovascular disease. SURGICAL HISTORY : None. ENCOUNTER: Initial ACUITY: 1 day PAIN SCORE: 0/10 LOCATION: Bilateral chest FINDINGS: A single view of the chest demonstrates the lungs to be symmetrically aerated without evidence of mas s, infiltrate or effusion. The cardiomediastinal contours are unremarkable. Osseous structures are intact. CONCLUSION: The lungs are clear. Christian Cordero MD on August 21, 2016 at 3:24 Board Certified Radiologist. This report was verified electronically.
[2016-08-21] MEDS: ENOXAPARIN SODIUM 60 MG/0.6 ML SYRINGE SQ SCH ×2 (05:03→17:20)
[2016-08-21] MEDS: ACETAMINOPHEN 325 MG TAB PO PRN ×4 (05:04→20:55)
[2016-08-21 05:24] LABS: BACTERIA, URINE OCC /hpf; BLOOD, URINE TRACE (NEG); GLUCOSE,URINE NEG (NEG); KETONE, URINE 10 mg/dL (NEG); MUCUS URINE FEW /lpf (OCC); PH, URINE 5.5 (5.0-8.5); URINE COLOR YELLOW (YELLW/STRAW)
[2016-08-21 05:25] LABS: COMMENT (UR) CATH-CULTURE IND; CULTURE IF INDICATED CATH CULTURE IND; NITRITE,URINE POS (NEG)
[2016-08-21] MEDS: MULTIVITAMINS/IRON/MINERALS CHEWABLE TAB CHEW SCH (09:00)
[2016-08-21] MEDS: CARISOPRODOL 350 MG TAB PO PRN ×2 (09:33→17:20)
[2016-08-21] MEDS: LACTOBACILLUS ACIDOPHILUS TAB PO SCH ×3 (09:33→17:20)
[2016-08-21] MEDS: buPROPion HCL 100 MG TAB PO SCH ×2 (09:33→20:54)
[2016-08-21] MEDS: CALCIUM/VITAMIN D 250 MG/125 U TAB PO SCH ×2 (09:34→20:54)
[2016-08-21] MEDS: FAMOTIDINE 20 MG TAB PO SCH ×2 (09:34→20:54)
[2016-08-21] MEDS: ASCORBIC ACID 500 MG TAB PO SCH ×3 (09:34→17:20)
[2016-08-21] MEDS: FERROUS SULFATE 325 MG (65 MG ELEMENTAL IRON) TAB PO SCH ×3 (09:34→17:20)
[2016-08-21] MEDS: METOPROLOL TARTRATE 25 MG TAB PO SCH ×2 (09:34→20:55)
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
[2016-08-21 17:15] LABS: AUTOMATED NEUTROPHIL # 8.2 TH/MM3 (1.8-7.7); BASOPHIL % 0.2 % (0.0-2.0); HEMATOCRIT 32.7 % (39.0-51.0); HEMO FLAGS DIFF FINAL; LYMPH % 8.5 % (9.0-44.0); LYMPHOCYTE # 0.8 TH/MM3 (1.0-4.8); MEAN CELL VOLUME 75.9 FL (80.0-100.0); MEAN CORPUSCULAR HEMOGLOBIN 25.1 PG (27.0-34.0); MEAN CORPUSCULAR HGB CONC 33.1 % (32.0-36.0); MONO % 5.8 % (0.0-8.0); NEUT % 85.5 % (16.0-70.0); PLATELET COUNT 166 TH/MM3 (150-450); RED BLOOD COUNT 4.31 MIL/MM3 (4.50-5.90); RED CELL DISTRIBUTION WIDTH 16.4 % (11.6-17.2); WHITE BLOOD COUNT 9.6 TH/MM3 (4.0-11.0)
[2016-08-21 19:05] LABS: LACTIC ACID GHOST NOT REPORTABLE
[2016-08-21] MEDS: ONDANSETRON ODT 4 MG TAB PO PRN (20:54)
[2016-08-21] MEDS: SODIUM CHLOR 0.9% 1000 ML INJ 1,000 ML IV SCH (20:55)
[2016-08-22] VITALS (7 sets, daily range): BP systolic 107–142; BP diastolic 57–77; PULSE 79–133; RESP 18–22; TEMP 96.5–102.7; O2SAT 92–100
[2016-08-22] MEDS: SODIUM CHLOR 0.9% 1000 ML INJ 1,000 ML IV SCH ×3 (04:13→20:04)
[2016-08-22] MEDS: ENOXAPARIN SODIUM 60 MG/0.6 ML SYRINGE SQ SCH ×2 (04:14→16:16)
[2016-08-22] MEDS: METOPROLOL TARTRATE 25 MG TAB PO SCH ×2 (09:00→21:14)
[2016-08-22] MEDS: LACTOBACILLUS ACIDOPHILUS TAB PO SCH ×3 (09:53→16:15)
[2016-08-22] MEDS: buPROPion HCL 100 MG TAB PO SCH ×2 (09:53→21:14)
[2016-08-22] MEDS: FERROUS SULFATE 325 MG (65 MG ELEMENTAL IRON) TAB PO SCH ×3 (09:53→16:15)
[2016-08-22] MEDS: ASCORBIC ACID 500 MG TAB PO SCH ×3 (09:54→16:15)
[2016-08-22] MEDS: FAMOTIDINE 20 MG TAB PO SCH ×2 (09:54→21:14)
[2016-08-22] MEDS: MULTIVITAMINS/IRON/MINERALS CHEWABLE TAB CHEW SCH (09:54)
[2016-08-22] MEDS: CALCIUM/VITAMIN D 250 MG/125 U TAB PO SCH ×2 (09:54→21:14)
[2016-08-22 12:19] LABS: AUTOMATED NEUTROPHIL # 4.9 TH/MM3 (1.8-7.7); BASOPHIL % 0.2 % (0.0-2.0); EOSINOPHIL % 0.1 % (0.0-4.0); HEMATOCRIT 30.5 % (39.0-51.0); HEMO FLAGS DIFF FINAL; LYMPH % 14.9 % (9.0-44.0); MEAN CORPUSCULAR HEMOGLOBIN 24.6 PG (27.0-34.0); MEAN CORPUSCULAR HGB CONC 32.3 % (32.0-36.0); MONO % 8.6 % (0.0-8.0); NEUT % 76.2 % (16.0-70.0); PLATELET COUNT 133 TH/MM3 (150-450); RED BLOOD COUNT 4.01 MIL/MM3 (4.50-5.90); RED CELL DISTRIBUTION WIDTH 16.6 % (11.6-17.2); WHITE BLOOD COUNT 6.4 TH/MM3 (4.0-11.0)
[2016-08-22 12:42] LABS: BICARBONATE 26.8 MEQ/L (21.0-32.0); POTASSIUM 3.5 MEQ/L (3.5-5.1)
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
[2016-08-22] MEDS: CIPROFLOXACIN 400 MG PREMIX 200 ML IV SCH ×2 (14:16→21:14)
[2016-08-22] MEDS: CARISOPRODOL 350 MG TAB PO PRN (16:15)
[2016-08-23] VITALS: BP 101/65; PULSE 86; RESP 20; TEMP 96; O2SAT 96
[2016-08-23] MEDS: SODIUM CHLOR 0.9% 1000 ML INJ 1,000 ML IV SCH (04:06)
[2016-08-23] MEDS: ENOXAPARIN SODIUM 60 MG/0.6 ML SYRINGE SQ SCH ×2 (04:07→16:36)
[2016-08-23 06:41] LABS: AUTOMATED NEUTROPHIL # 3.7 TH/MM3 (1.8-7.7); BASOPHIL % 0.3 % (0.0-2.0); EOSINOPHIL # 0.1 TH/MM3 (0-0.4); EOSINOPHIL % 1.2 % (0.0-4.0); HEMATOCRIT 30.4 % (39.0-51.0); HEMO FLAGS DIFF FINAL; LYMPH % 14.3 % (9.0-44.0); LYMPHOCYTE # 0.7 TH/MM3 (1.0-4.8); MEAN CELL VOLUME 75.4 FL (80.0-100.0); MEAN CORPUSCULAR HEMOGLOBIN 25.1 PG (27.0-34.0); MEAN CORPUSCULAR HGB CONC 33.2 % (32.0-36.0); MONO % 12.2 % (0.0-8.0); PLATELET COUNT 131 TH/MM3 (150-450); RED BLOOD COUNT 4.04 MIL/MM3 (4.50-5.90); RED CELL DISTRIBUTION WIDTH 16.5 % (11.6-17.2); WHITE BLOOD COUNT 5.1 TH/MM3 (4.0-11.0)
[2016-08-23 07:04] LABS: BICARBONATE 26.9 MEQ/L (21.0-32.0); POTASSIUM 3.2 MEQ/L (3.5-5.1)
[2016-08-23 08:00] VITALS: BP 102/51; PULSE 93; RESP 18; TEMP 99.1; O2SAT 96
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
[2016-08-23] MEDS: METOPROLOL TARTRATE 25 MG TAB PO SCH ×2 (09:00→22:08)
[2016-08-23] MEDS: MULTIVITAMINS/IRON/MINERALS CHEWABLE TAB CHEW SCH (10:11)
[2016-08-23] MEDS: FERROUS SULFATE 325 MG (65 MG ELEMENTAL IRON) TAB PO SCH ×3 (10:11→16:35)
[2016-08-23] MEDS: FAMOTIDINE 20 MG TAB PO SCH ×2 (10:11→22:08)
[2016-08-23] MEDS: LACTOBACILLUS ACIDOPHILUS TAB PO SCH ×3 (10:12→16:35)
[2016-08-23] MEDS: CALCIUM/VITAMIN D 250 MG/125 U TAB PO SCH ×2 (10:12→22:08)
[2016-08-23] MEDS: ASCORBIC ACID 500 MG TAB PO SCH ×3 (10:12→16:35)
[2016-08-23] MEDS: CIPROFLOXACIN 400 MG PREMIX 200 ML IV SCH ×2 (10:13→22:05)
[2016-08-23] MEDS: buPROPion HCL 100 MG TAB PO SCH ×2 (10:13→22:07)
[2016-08-23] MEDS: NS + KCL 20 MEQ INJ 1,000 ML IV SCH ×2 (10:13→16:36)
[2016-08-23] MEDS: CARISOPRODOL 350 MG TAB PO PRN ×2 (10:24→22:10)
[2016-08-23 12:00] VITALS: BP 117/58; PULSE 93; RESP 18; TEMP 99.3; O2SAT 96
[2016-08-23 16:00] VITALS: BP 97/56; PULSE 95; RESP 18; TEMP 98.6; O2SAT 96
[2016-08-23 20:00] VITALS: BP 117/59; PULSE 90; RESP 20; TEMP 97.4; O2SAT 98
[2016-08-24] VITALS: BP 126/73; PULSE 76; RESP 20; TEMP 97.8; O2SAT 97
[2016-08-24 08:00] VITALS: BP 118/59; PULSE 72; RESP 17; TEMP 97.6; O2SAT 97
[2016-08-24] MEDS: CALCIUM/VITAMIN D 250 MG/125 U TAB PO SCH ×2 (10:34→22:20)
[2016-08-24] MEDS: ASCORBIC ACID 500 MG TAB PO SCH ×3 (10:35→22:25)
[2016-08-24] MEDS: FAMOTIDINE 20 MG TAB PO SCH ×2 (10:35→22:20)
[2016-08-24] MEDS: METOPROLOL TARTRATE 25 MG TAB PO SCH ×2 (10:35→22:20)
[2016-08-24] MEDS: FERROUS SULFATE 325 MG (65 MG ELEMENTAL IRON) TAB PO SCH ×3 (10:35→22:20)
[2016-08-24] MEDS: LACTOBACILLUS ACIDOPHILUS TAB PO SCH ×3 (10:35→22:19)
[2016-08-24] MEDS: buPROPion HCL 100 MG TAB PO SCH ×2 (10:36→22:19)
[2016-08-24] MEDS: CIPROFLOXACIN 400 MG PREMIX 200 ML IV SCH (10:37)
[2016-08-24] MEDS: CARISOPRODOL 350 MG TAB PO PRN ×2 (10:42→22:20)
[2016-08-24] MEDS: MULTIVITAMINS/IRON/MINERALS CHEWABLE TAB CHEW SCH (10:42)
[2016-08-24 12:00] VITALS: BP 118/63; PULSE 60; RESP 18; TEMP 96.1; O2SAT 94
[2016-08-24] MEDS: ENOXAPARIN SODIUM 60 MG/0.6 ML SYRINGE SQ SCH ×2 (14:39→16:00)
[2016-08-24 16:00] VITALS: BP 121/62; PULSE 68; RESP 18; TEMP 97.4; O2SAT 96
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
[2016-08-24 20:00] VITALS: BP 123/74; PULSE 84; RESP 20; TEMP 97.1; O2SAT 99
[2016-08-24] MEDS: CIPROFLOXACIN 250 MG TAB PO SCH (22:19)
[2016-08-25] VITALS: BP 109/57; PULSE 73; RESP 18; TEMP 97.9; O2SAT 98
[2016-08-25] MEDS: ENOXAPARIN SODIUM 60 MG/0.6 ML SYRINGE SQ SCH ×2 (05:15→16:17)
[2016-08-25] MEDS: CARISOPRODOL 350 MG TAB PO PRN ×2 (06:41→16:17)
[2016-08-25 08:00] VITALS: BP 118/64; PULSE 69; RESP 17; TEMP 95.2; O2SAT 94
[2016-08-25] MEDS: FAMOTIDINE 20 MG TAB PO SCH ×2 (09:00→20:52)
[2016-08-25] MEDS: FERROUS SULFATE 325 MG (65 MG ELEMENTAL IRON) TAB PO SCH ×3 (09:00→16:17)
[2016-08-25] MEDS: ASCORBIC ACID 500 MG TAB PO SCH ×3 (09:11→16:17)
[2016-08-25] MEDS: CALCIUM/VITAMIN D 250 MG/125 U TAB PO SCH ×2 (09:11→20:52)
[2016-08-25] MEDS: CIPROFLOXACIN 250 MG TAB PO SCH ×2 (09:11→20:52)
[2016-08-25] MEDS: LACTOBACILLUS ACIDOPHILUS TAB PO SCH ×3 (09:11→16:17)
[2016-08-25] MEDS: MULTIVITAMINS/IRON/MINERALS CHEWABLE TAB CHEW SCH (09:11)
[2016-08-25] MEDS: buPROPion HCL 100 MG TAB PO SCH ×2 (09:11→20:52)
[2016-08-25] MEDS: METOPROLOL TARTRATE 25 MG TAB PO SCH ×2 (09:11→20:52)
[2016-08-25 12:00] VITALS: BP 111/63; PULSE 53; RESP 16; TEMP 95.8; O2SAT 96
[2016-08-25 16:00] VITALS: BP 117/68; PULSE 74; RESP 16; TEMP 97.4; O2SAT 95
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
[2016-08-25 20:00] VITALS: BP 103/56; PULSE 67; RESP 20; TEMP 99.2; O2SAT 97
[2016-08-25 21:47] LABS: TRANSFERRIN IRON PROFILE 121 MG/DL (200-360)
[2016-08-26] MEDS: ENOXAPARIN SODIUM 60 MG/0.6 ML SYRINGE SQ SCH ×2 (04:53→16:28)
[2016-08-26 08:00] VITALS: BP 139/75; PULSE 70; RESP 17; TEMP 96.9; O2SAT 96
[2016-08-26] MEDS: MULTIVITAMINS/IRON/MINERALS CHEWABLE TAB CHEW SCH (08:46)
[2016-08-26] MEDS: ASCORBIC ACID 500 MG TAB PO SCH ×3 (08:46→16:28)
[2016-08-26] MEDS: CALCIUM/VITAMIN D 250 MG/125 U TAB PO SCH ×2 (08:47→21:42)
[2016-08-26] MEDS: CIPROFLOXACIN 250 MG TAB PO SCH ×2 (08:47→21:42)
[2016-08-26] MEDS: buPROPion HCL 100 MG TAB PO SCH ×2 (08:47→21:42)
[2016-08-26] MEDS: CARISOPRODOL 350 MG TAB PO PRN ×2 (08:47→21:42)
[2016-08-26] MEDS: METOPROLOL TARTRATE 25 MG TAB PO SCH ×2 (08:47→21:42)
[2016-08-26] MEDS: LACTOBACILLUS ACIDOPHILUS TAB PO SCH ×3 (08:47→16:28)
[2016-08-26] MEDS: FAMOTIDINE 20 MG TAB PO SCH ×2 (08:51→21:42)
[2016-08-26] MEDS: FERROUS SULFATE 325 MG (65 MG ELEMENTAL IRON) TAB PO SCH ×3 (08:51→16:28)
[2016-08-26 12:00] VITALS: BP 122/77; PULSE 65; RESP 17; TEMP 98.1; O2SAT 96
[2016-08-26 16:00] VITALS: BP 130/71; PULSE 97; RESP 17; TEMP 96.6; O2SAT 97
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
[2016-08-26 20:00] VITALS: BP 140/80; PULSE 90; RESP 18; TEMP 96; O2SAT 96
[2016-08-27] VITALS: BP 131/68; PULSE 87; RESP 18; TEMP 96; O2SAT 97
[2016-08-27] MEDS: ENOXAPARIN SODIUM 60 MG/0.6 ML SYRINGE SQ SCH ×2 (06:08→16:00)
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
[2016-08-27] MEDS: MULTIVITAMINS/IRON/MINERALS CHEWABLE TAB CHEW SCH (08:41)
[2016-08-27] MEDS: FAMOTIDINE 20 MG TAB PO SCH ×2 (08:41→20:14)
[2016-08-27] MEDS: ASCORBIC ACID 500 MG TAB PO SCH ×3 (08:41→18:06)
[2016-08-27] MEDS: CIPROFLOXACIN 250 MG TAB PO SCH ×2 (08:41→20:15)
[2016-08-27] MEDS: FERROUS SULFATE 325 MG (65 MG ELEMENTAL IRON) TAB PO SCH ×3 (08:41→18:05)
[2016-08-27] MEDS: ERGOCALCIFEROL (VIT D2) 50,000 UNIT CAP PO SCH (08:41)
[2016-08-27] MEDS: buPROPion HCL 100 MG TAB PO SCH ×2 (08:42→20:15)
[2016-08-27] MEDS: METOPROLOL TARTRATE 25 MG TAB PO SCH ×2 (08:42→20:15)
[2016-08-27] MEDS: LACTOBACILLUS ACIDOPHILUS TAB PO SCH ×3 (08:42→18:05)
[2016-08-27] MEDS: CALCIUM/VITAMIN D 250 MG/125 U TAB PO SCH ×2 (08:42→20:15)
[2016-08-27 08:43] VITALS: BP 118/70; PULSE 71; RESP 17; TEMP 97.5; O2SAT 99
[2016-08-27] MEDS: CARISOPRODOL 350 MG TAB PO PRN ×2 (08:46→18:06)
[2016-08-27 12:00] VITALS: BP 118/70; PULSE 71; RESP 17; TEMP 97.5; O2SAT 99
[2016-08-27 16:00] VITALS: BP 120/68; PULSE 75; RESP 17; TEMP 98.2; O2SAT 99
[2016-08-27 20:00] VITALS: BP 116/68; PULSE 65; RESP 18; TEMP 97.8; O2SAT 98
[2016-08-28] VITALS: BP 120/64; PULSE 73; RESP 16; TEMP 97.6; O2SAT 97
[2016-08-28] MEDS: ENOXAPARIN SODIUM 60 MG/0.6 ML SYRINGE SQ SCH ×2 (05:37→17:30)
[2016-08-28 08:00] VITALS: BP 137/75; PULSE 75; RESP 20; TEMP 96.9; O2SAT 99
[2016-08-28] MEDS: MULTIVITAMINS/IRON/MINERALS CHEWABLE TAB CHEW SCH (09:00)
[2016-08-28] MEDS: CALCIUM/VITAMIN D 250 MG/125 U TAB PO SCH ×2 (09:00→21:18)
[2016-08-28] MEDS: buPROPion HCL 100 MG TAB PO SCH ×2 (09:00→21:17)
[2016-08-28] MEDS: CIPROFLOXACIN 250 MG TAB PO SCH ×2 (09:00→21:18)
[2016-08-28] MEDS: FERROUS SULFATE 325 MG (65 MG ELEMENTAL IRON) TAB PO SCH ×3 (09:00→17:30)
[2016-08-28] MEDS: FAMOTIDINE 20 MG TAB PO SCH ×2 (09:00→21:17)
[2016-08-28] MEDS: CARISOPRODOL 350 MG TAB PO PRN ×2 (09:00→17:30)
[2016-08-28] MEDS: LACTOBACILLUS ACIDOPHILUS TAB PO SCH ×3 (09:00→17:30)
[2016-08-28] MEDS: METOPROLOL TARTRATE 25 MG TAB PO SCH ×2 (09:00→21:17)
[2016-08-28] MEDS: ASCORBIC ACID 500 MG TAB PO SCH ×3 (09:00→17:30)
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
[2016-08-28 12:00] VITALS: BP 103/68; PULSE 83; RESP 20; TEMP 97.3; O2SAT 98
[2016-08-28 16:00] VITALS: BP 109/65; PULSE 71; RESP 20; TEMP 97.4; O2SAT 98
[2016-08-28 20:00] VITALS: BP 128/67; PULSE 81; RESP 19; TEMP 97.3; O2SAT 97
[2016-08-29] MEDS: CARISOPRODOL 350 MG TAB PO PRN ×2 (02:02→12:06)
[2016-08-29] MEDS: ENOXAPARIN SODIUM 60 MG/0.6 ML SYRINGE SQ SCH ×2 (02:03→17:03)
[2016-08-29 08:00] VITALS: BP 120/66; PULSE 71; RESP 17; TEMP 96; O2SAT 96
[2016-08-29] MEDS: buPROPion HCL 100 MG TAB PO SCH ×2 (09:45→20:03)
[2016-08-29] MEDS: METOPROLOL TARTRATE 25 MG TAB PO SCH ×2 (09:45→20:03)
[2016-08-29] MEDS: FAMOTIDINE 20 MG TAB PO SCH ×2 (09:45→20:03)
[2016-08-29] MEDS: MULTIVITAMINS/IRON/MINERALS CHEWABLE TAB CHEW SCH (09:45)
[2016-08-29] MEDS: CIPROFLOXACIN 250 MG TAB PO SCH ×2 (09:45→20:03)
[2016-08-29] MEDS: LACTOBACILLUS ACIDOPHILUS TAB PO SCH ×3 (09:45→17:03)
[2016-08-29] MEDS: CALCIUM/VITAMIN D 250 MG/125 U TAB PO SCH ×2 (09:45→20:03)
[2016-08-29] MEDS: FERROUS SULFATE 325 MG (65 MG ELEMENTAL IRON) TAB PO SCH ×3 (09:45→17:03)
[2016-08-29] MEDS: ASCORBIC ACID 500 MG TAB PO SCH ×3 (09:45→17:03)
[2016-08-29 12:00] VITALS: BP 123/72; PULSE 64; RESP 17; TEMP 96.1; O2SAT 96
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
[2016-08-29 16:00] VITALS: BP 134/69; PULSE 70; RESP 17; TEMP 96; O2SAT 97
[2016-08-29 20:00] VITALS: BP 112/57; PULSE 67; RESP 19; TEMP 98.3; O2SAT 94
[2016-08-30] VITALS: BP 116/64; PULSE 62; RESP 19; TEMP 97.8; O2SAT 96
[2016-08-30] MEDS: CARISOPRODOL 350 MG TAB PO PRN (04:15)
[2016-08-30] MEDS: ENOXAPARIN SODIUM 60 MG/0.6 ML SYRINGE SQ SCH ×2 (04:16→16:36)
[2016-08-30 08:00] VITALS: BP 123/60; PULSE 77; RESP 18; TEMP 97; O2SAT 98
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
[2016-08-30] MEDS: LACTOBACILLUS ACIDOPHILUS TAB PO SCH ×3 (09:00→17:30)
[2016-08-30] MEDS: MULTIVITAMINS/IRON/MINERALS CHEWABLE TAB CHEW SCH (09:26)
[2016-08-30] MEDS: buPROPion HCL 100 MG TAB PO SCH ×2 (09:26→20:43)
[2016-08-30] MEDS: ASCORBIC ACID 500 MG TAB PO SCH ×3 (09:26→17:31)
[2016-08-30] MEDS: CALCIUM/VITAMIN D 250 MG/125 U TAB PO SCH ×2 (09:26→20:43)
[2016-08-30] MEDS: FAMOTIDINE 20 MG TAB PO SCH ×2 (09:26→20:43)
[2016-08-30] MEDS: METOPROLOL TARTRATE 25 MG TAB PO SCH ×2 (09:26→20:44)
[2016-08-30] MEDS: FERROUS SULFATE 325 MG (65 MG ELEMENTAL IRON) TAB PO SCH ×3 (09:26→17:30)
[2016-08-30] MEDS: CIPROFLOXACIN 250 MG TAB PO SCH ×2 (09:26→20:43)
[2016-08-30 09:59] LABS: MAGNESIUM 2.1 MG/DL (1.5-2.5)
[2016-08-30 12:00] VITALS: BP 114/64; PULSE 63; RESP 18; TEMP 96.5; O2SAT 95
[2016-08-30 16:00] VITALS: BP 117/57; PULSE 68; RESP 18; TEMP 96.1; O2SAT 98
[2016-08-30 19:47] VITALS: BP 97/52; PULSE 70; RESP 20; TEMP 97.3; O2SAT 97
[2016-08-30 20:00] VITALS: BP 97/52; PULSE 70; RESP 20; TEMP 97.3; O2SAT 97
[2016-08-31] VITALS: BP 114/58; PULSE 75; RESP 18; TEMP 97.7; O2SAT 99
[2016-08-31] MEDS: ENOXAPARIN SODIUM 60 MG/0.6 ML SYRINGE SQ SCH ×2 (04:12→16:57)
[2016-08-31] MEDS: CARISOPRODOL 350 MG TAB PO PRN ×2 (04:13→14:48)
[2016-08-31 08:00] VITALS: BP 132/67; PULSE 97; RESP 18; TEMP 96.4; O2SAT 96
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
[2016-08-31] MEDS: FAMOTIDINE 20 MG TAB PO SCH ×2 (08:38→21:11)
[2016-08-31] MEDS: MULTIVITAMINS/IRON/MINERALS CHEWABLE TAB CHEW SCH (08:38)
[2016-08-31] MEDS: CIPROFLOXACIN 250 MG TAB PO SCH ×2 (08:38→21:11)
[2016-08-31] MEDS: CALCIUM/VITAMIN D 250 MG/125 U TAB PO SCH ×2 (08:38→21:11)
[2016-08-31] MEDS: buPROPion HCL 100 MG TAB PO SCH ×2 (08:39→21:11)
[2016-08-31] MEDS: ASCORBIC ACID 500 MG TAB PO SCH ×3 (08:39→16:57)
[2016-08-31] MEDS: METOPROLOL TARTRATE 25 MG TAB PO SCH ×2 (08:39→21:11)
[2016-08-31] MEDS: LACTOBACILLUS ACIDOPHILUS TAB PO SCH ×3 (08:39→16:57)
[2016-08-31] MEDS: FERROUS SULFATE 325 MG (65 MG ELEMENTAL IRON) TAB PO SCH ×3 (08:39→16:57)
[2016-08-31] MEDS: LORazepam 1 MG TAB PO PRN (10:37)
[2016-08-31 12:00] VITALS: BP 121/64; PULSE 72; RESP 18; TEMP 96.1; O2SAT 96
[2016-08-31 16:00] VITALS: BP 109/73; PULSE 81; RESP 18; TEMP 95.7; O2SAT 94
[2016-08-31 20:20] VITALS: BP 122/66; PULSE 72; RESP 18; TEMP 97.6; O2SAT 98
[2016-08-31 23:32] VITALS: BP 117/67; PULSE 80; RESP 20; TEMP 97.5; O2SAT 96
[2016-09-01] MEDS: ENOXAPARIN SODIUM 60 MG/0.6 ML SYRINGE SQ SCH ×2 (03:48→16:40)
[2016-09-01 08:00] VITALS: BP 125/63; PULSE 67; RESP 19; TEMP 98.4; O2SAT 96
[2016-09-01] MEDS: CALCIUM/VITAMIN D 250 MG/125 U TAB PO SCH ×2 (09:00→20:55)
[2016-09-01] MEDS: FERROUS SULFATE 325 MG (65 MG ELEMENTAL IRON) TAB PO SCH ×3 (09:00→16:40)
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
[2016-09-01] MEDS: MULTIVITAMINS/IRON/MINERALS CHEWABLE TAB CHEW SCH (09:26)
[2016-09-01] MEDS: CARISOPRODOL 350 MG TAB PO PRN (09:26)
[2016-09-01] MEDS: FAMOTIDINE 20 MG TAB PO SCH ×2 (09:26→20:55)
[2016-09-01] MEDS: CIPROFLOXACIN 250 MG TAB PO SCH ×2 (09:26→20:55)
[2016-09-01] MEDS: LACTOBACILLUS ACIDOPHILUS TAB PO SCH ×3 (09:27→16:40)
[2016-09-01] MEDS: METOPROLOL TARTRATE 25 MG TAB PO SCH ×2 (09:28→20:55)
[2016-09-01] MEDS: buPROPion HCL 100 MG TAB PO SCH ×2 (09:28→20:55)
[2016-09-01] MEDS: ASCORBIC ACID 500 MG TAB PO SCH ×3 (09:28→16:40)
[2016-09-01 12:00] VITALS: BP 129/68; PULSE 73; RESP 19; TEMP 96.9; O2SAT 97
[2016-09-01 16:00] VITALS: BP_SYST 117; BP_SYST 141; BP_DIAS 60; BP_DIAS 61; PULSE 76; PULSE 78; RESP 20; TEMP 97.8; TEMP 98.3; O2SAT 98
[2016-09-01 18:12] VITALS: O2SAT 98
[2016-09-01 20:00] VITALS: BP 120/62; PULSE 66; RESP 18; TEMP 96.3; O2SAT 99
[2016-09-02] VITALS: BP 131/63; PULSE 62; RESP 18; TEMP 97.5; O2SAT 98
[2016-09-02] MEDS: CARISOPRODOL 350 MG TAB PO PRN ×3 (03:39→20:04)
[2016-09-02] MEDS: ENOXAPARIN SODIUM 60 MG/0.6 ML SYRINGE SQ SCH ×2 (03:40→16:56)
[2016-09-02 08:00] VITALS: BP 117/56; PULSE 68; RESP 19; TEMP 95.7; O2SAT 99
[2016-09-02] MEDS: LACTOBACILLUS ACIDOPHILUS TAB PO SCH ×3 (08:33→16:56)
[2016-09-02] MEDS: MULTIVITAMINS/IRON/MINERALS CHEWABLE TAB CHEW SCH (08:34)
[2016-09-02] MEDS: ASCORBIC ACID 500 MG TAB PO SCH ×3 (08:34→16:56)
[2016-09-02] MEDS: FERROUS SULFATE 325 MG (65 MG ELEMENTAL IRON) TAB PO SCH ×3 (08:34→16:56)
[2016-09-02] MEDS: CIPROFLOXACIN 250 MG TAB PO SCH ×2 (08:34→20:04)
[2016-09-02] MEDS: FAMOTIDINE 20 MG TAB PO SCH ×2 (08:34→20:05)
[2016-09-02] MEDS: buPROPion HCL 100 MG TAB PO SCH ×2 (08:34→20:05)
[2016-09-02] MEDS: METOPROLOL TARTRATE 25 MG TAB PO SCH ×2 (08:34→20:05)
[2016-09-02] MEDS: CALCIUM/VITAMIN D 250 MG/125 U TAB PO SCH ×2 (08:35→20:04)
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
[2016-09-02 12:00] VITALS: BP 121/65; PULSE 73; RESP 19; TEMP 96.7; O2SAT 98
[2016-09-02 16:00] VITALS: BP 117/68; PULSE 90; RESP 21; TEMP 95.3; O2SAT 96
[2016-09-02 20:00] VITALS: BP 121/67; PULSE 78; RESP 18; TEMP 97.8; O2SAT 98
[2016-09-03 00:10] VITALS: BP 111/56; PULSE 70; RESP 18; TEMP 98.9; O2SAT 98
[2016-09-03] MEDS: CARISOPRODOL 350 MG TAB PO PRN ×2 (05:05→13:14)
[2016-09-03] MEDS: ENOXAPARIN SODIUM 60 MG/0.6 ML SYRINGE SQ SCH ×2 (05:05→17:37)
[2016-09-03 08:00] VITALS: BP 111/55; PULSE 67; RESP 18; TEMP 95.4; O2SAT 97
[2016-09-03] MEDS: CIPROFLOXACIN 250 MG TAB PO SCH ×2 (09:37→20:42)
[2016-09-03] MEDS: FAMOTIDINE 20 MG TAB PO SCH ×2 (09:37→20:43)
[2016-09-03] MEDS: LACTOBACILLUS ACIDOPHILUS TAB PO SCH ×3 (09:37→17:36)
[2016-09-03] MEDS: buPROPion HCL 100 MG TAB PO SCH ×2 (09:37→20:43)
[2016-09-03] MEDS: METOPROLOL TARTRATE 25 MG TAB PO SCH ×2 (09:37→20:42)
[2016-09-03] MEDS: ASCORBIC ACID 500 MG TAB PO SCH ×3 (09:37→17:37)
[2016-09-03] MEDS: MULTIVITAMINS/IRON/MINERALS CHEWABLE TAB CHEW SCH (09:37)
[2016-09-03] MEDS: FERROUS SULFATE 325 MG (65 MG ELEMENTAL IRON) TAB PO SCH ×3 (09:37→17:36)
[2016-09-03] MEDS: CALCIUM/VITAMIN D 250 MG/125 U TAB PO SCH ×2 (09:37→20:42)
[2016-09-03] MEDS: ERGOCALCIFEROL (VIT D2) 50,000 UNIT CAP PO SCH (09:37)
[2016-09-03 12:00] VITALS: BP 115/57; PULSE 64; RESP 18; TEMP 96; O2SAT 98
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
[2016-09-03 16:00] VITALS: BP 118/56; PULSE 77; RESP 18; TEMP 97.1; O2SAT 96
[2016-09-03 20:00] VITALS: BP 124/56; PULSE 76; RESP 20; TEMP 97.3; O2SAT 95
[2016-09-04] MEDS: ENOXAPARIN SODIUM 60 MG/0.6 ML SYRINGE SQ SCH ×2 (05:42→15:58)
[2016-09-04 08:00] VITALS: BP 134/71; PULSE 69; RESP 18; TEMP 97.5; O2SAT 97
[2016-09-04] MEDS: CALCIUM/VITAMIN D 250 MG/125 U TAB PO SCH ×2 (09:21→22:04)
[2016-09-04] MEDS: CIPROFLOXACIN 250 MG TAB PO SCH ×2 (09:21→22:04)
[2016-09-04] MEDS: MULTIVITAMINS/IRON/MINERALS CHEWABLE TAB CHEW SCH (09:21)
[2016-09-04] MEDS: LACTOBACILLUS ACIDOPHILUS TAB PO SCH ×3 (09:21→17:24)
[2016-09-04] MEDS: FAMOTIDINE 20 MG TAB PO SCH ×2 (09:21→22:05)
[2016-09-04] MEDS: ASCORBIC ACID 500 MG TAB PO SCH ×3 (09:21→17:24)
[2016-09-04] MEDS: METOPROLOL TARTRATE 25 MG TAB PO SCH ×2 (09:21→22:05)
[2016-09-04] MEDS: LORazepam 1 MG TAB PO PRN (09:21)
[2016-09-04] MEDS: FERROUS SULFATE 325 MG (65 MG ELEMENTAL IRON) TAB PO SCH ×3 (09:21→17:24)
[2016-09-04] MEDS: buPROPion HCL 100 MG TAB PO SCH ×2 (09:21→22:04)
[2016-09-04] MEDS: CARISOPRODOL 350 MG TAB PO PRN ×2 (09:22→22:05)
[2016-09-04 12:18] VITALS: BP 127/68; PULSE 70; RESP 18; TEMP 96.8; O2SAT 96
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
[2016-09-04 16:00] VITALS: BP 130/60; PULSE 78; RESP 18; TEMP 98.9; O2SAT 96
[2016-09-04 20:00] VITALS: BP 123/60; PULSE 84; RESP 17; TEMP 97.5; O2SAT 94
[2016-09-05] VITALS: BP 124/62; PULSE 79; RESP 17; TEMP 97; O2SAT 95
[2016-09-05] MEDS: ENOXAPARIN SODIUM 60 MG/0.6 ML SYRINGE SQ SCH ×2 (05:18→14:04)
[2016-09-05 08:00] VITALS: BP 114/57; PULSE 72; RESP 19; TEMP 97.9; O2SAT 97
[2016-09-05] MEDS: MULTIVITAMINS/IRON/MINERALS CHEWABLE TAB CHEW SCH (09:38)
[2016-09-05] MEDS: ASCORBIC ACID 500 MG TAB PO SCH ×3 (09:38→17:42)
[2016-09-05] MEDS: LACTOBACILLUS ACIDOPHILUS TAB PO SCH ×3 (09:38→17:42)
[2016-09-05] MEDS: FERROUS SULFATE 325 MG (65 MG ELEMENTAL IRON) TAB PO SCH ×3 (09:38→17:42)
[2016-09-05] MEDS: CALCIUM/VITAMIN D 250 MG/125 U TAB PO SCH ×2 (09:38→20:53)
[2016-09-05] MEDS: buPROPion HCL 100 MG TAB PO SCH ×2 (09:38→20:53)
[2016-09-05] MEDS: FAMOTIDINE 20 MG TAB PO SCH ×2 (09:38→20:53)
[2016-09-05] MEDS: CIPROFLOXACIN 250 MG TAB PO SCH ×2 (09:38→20:53)
[2016-09-05] MEDS: METOPROLOL TARTRATE 25 MG TAB PO SCH ×2 (09:38→20:53)
[2016-09-05] MEDS: CARISOPRODOL 350 MG TAB PO PRN ×2 (09:38→17:42)
[2016-09-05] MEDS: LORazepam 1 MG TAB PO PRN (09:44)
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
[2016-09-05 12:00] VITALS: BP 122/67; PULSE 81; RESP 19; TEMP 97.8; O2SAT 98
--- NOTE | 2016-09-05 14:50 | RADRPT ---
EXAM DATE/TIME: 09/05/2016 12:59 [facility] COMPARISON: No previous studies available for comparison. INDICATIONS : Mass. MEDICAL HISTORY : Abdominal pain. Diarrhea. Nausea. Depression. MRSA. T9 vertebral fracture. Extensor tendon laceratio n. Left distal femur fracture. Tachycardia. Anemia. SURGICAL HISTORY : ENCOUNTER: Initial ACUITY: 2 months PAIN SCORE: 0/10 LOCATION: Left thigh. AREA EVALUATED: Mid medial thigh. FINDINGS: Sonographic evaluation of the area of concern involving the medial mid left by shows normal subcutane ous fat. Some edema is observed. No fluid collection, abscess, or mass. CONCLUSION: Subcutaneous edema. No mass or fluid collection. Christian Navarro Jr., MD on September 05, 2016 at 14:47 Board Certified Radiologist. This report was verified electronically.
[2016-09-05 16:00] VITALS: BP 119/76; PULSE 76; RESP 19; TEMP 97.8; O2SAT 98
[2016-09-05 20:00] VITALS: BP 116/60; PULSE 86; RESP 18; TEMP 97.1; O2SAT 97
[2016-09-06] VITALS: BP 119/69; PULSE 92; RESP 18; TEMP 97.9; O2SAT 98
[2016-09-06] MEDS: ENOXAPARIN SODIUM 60 MG/0.6 ML SYRINGE SQ SCH ×2 (04:00→14:47)
[2016-09-06 08:00] VITALS: BP 107/57; PULSE 71; RESP 16; TEMP 97.6; O2SAT 96
[2016-09-06] MEDS: METOPROLOL TARTRATE 25 MG TAB PO SCH ×2 (09:00→22:28)
[2016-09-06] MEDS: CIPROFLOXACIN 250 MG TAB PO SCH (09:00)
[2016-09-06] MEDS: CALCIUM/VITAMIN D 250 MG/125 U TAB PO SCH ×2 (09:43→22:28)
[2016-09-06] MEDS: FERROUS SULFATE 325 MG (65 MG ELEMENTAL IRON) TAB PO SCH ×3 (09:43→18:56)
[2016-09-06] MEDS: LACTOBACILLUS ACIDOPHILUS TAB PO SCH ×3 (09:44→18:56)
[2016-09-06] MEDS: FAMOTIDINE 20 MG TAB PO SCH ×2 (09:44→22:28)
[2016-09-06] MEDS: ASCORBIC ACID 500 MG TAB PO SCH ×3 (09:44→18:56)
[2016-09-06] MEDS: MULTIVITAMINS/IRON/MINERALS CHEWABLE TAB CHEW SCH (09:44)
[2016-09-06] MEDS: LORazepam 1 MG TAB PO PRN (09:44)
[2016-09-06] MEDS: buPROPion HCL 100 MG TAB PO SCH ×2 (09:44→22:27)
[2016-09-06] MEDS: CARISOPRODOL 350 MG TAB PO PRN ×2 (09:44→18:56)
[2016-09-06 12:00] VITALS: BP 120/63; PULSE 74; RESP 16; TEMP 97.8; O2SAT 97
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
[2016-09-06 16:00] VITALS: BP 116/63; PULSE 80; RESP 18; TEMP 97; O2SAT 98
[2016-09-06] MEDS: NEOMYCIN/POLYMYXIN/BACITRACIN OINT 15 GM TUBE TOPICAL SCH ×2 (18:56→22:36)
[2016-09-06 20:21] VITALS: BP 120/65; PULSE 70; RESP 17; TEMP 96; O2SAT 98
[2016-09-07 00:30] VITALS: BP 129/68; PULSE 70; RESP 18; TEMP 97.8; O2SAT 98
[2016-09-07] MEDS: ENOXAPARIN SODIUM 60 MG/0.6 ML SYRINGE SQ SCH ×3 (04:00→17:18)
[2016-09-07 08:00] VITALS: BP 108/55; PULSE 66; RESP 16; TEMP 97.7; O2SAT 97
[2016-09-07] MEDS: LACTOBACILLUS ACIDOPHILUS TAB PO SCH ×3 (08:54→17:18)
[2016-09-07] MEDS: CALCIUM/VITAMIN D 250 MG/125 U TAB PO SCH ×2 (08:54→20:55)
[2016-09-07] MEDS: buPROPion HCL 100 MG TAB PO SCH ×2 (08:54→20:55)
[2016-09-07] MEDS: LORazepam 1 MG TAB PO PRN (08:54)
[2016-09-07] MEDS: CARISOPRODOL 350 MG TAB PO PRN ×2 (08:54→20:55)
[2016-09-07] MEDS: ASCORBIC ACID 500 MG TAB PO SCH ×3 (08:54→17:18)
[2016-09-07] MEDS: FERROUS SULFATE 325 MG (65 MG ELEMENTAL IRON) TAB PO SCH ×3 (08:55→17:18)
[2016-09-07] MEDS: FAMOTIDINE 20 MG TAB PO SCH ×2 (08:55→20:54)
[2016-09-07] MEDS: METOPROLOL TARTRATE 25 MG TAB PO SCH ×2 (08:55→20:56)
[2016-09-07] MEDS: MULTIVITAMINS/IRON/MINERALS CHEWABLE TAB CHEW SCH (08:55)
[2016-09-07] MEDS: NEOMYCIN/POLYMYXIN/BACITRACIN OINT 15 GM TUBE TOPICAL SCH ×2 (08:57→20:57)
[2016-09-07 12:00] VITALS: BP 114/62; PULSE 70; RESP 17; TEMP 98; O2SAT 98
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
[2016-09-07 16:00] VITALS: BP 120/76; PULSE 77; RESP 17; TEMP 98.3; O2SAT 99
[2016-09-07 20:09] VITALS: BP 125/65; PULSE 80; RESP 18; TEMP 97.8; O2SAT 97
[2016-09-08 00:21] VITALS: BP 120/65; PULSE 80; RESP 18; TEMP 97.7; O2SAT 97
[2016-09-08] MEDS: ENOXAPARIN SODIUM 60 MG/0.6 ML SYRINGE SQ SCH ×2 (03:58→18:32)
[2016-09-08 08:00] VITALS: BP 121/60; PULSE 67; RESP 18; TEMP 97; O2SAT 98
[2016-09-08] MEDS: MULTIVITAMINS/IRON/MINERALS CHEWABLE TAB CHEW SCH (09:39)
[2016-09-08] MEDS: CARISOPRODOL 350 MG TAB PO PRN ×2 (09:39→18:29)
[2016-09-08] MEDS: buPROPion HCL 100 MG TAB PO SCH ×2 (09:39→20:08)
[2016-09-08] MEDS: ASCORBIC ACID 500 MG TAB PO SCH ×3 (09:39→18:29)
[2016-09-08] MEDS: FAMOTIDINE 20 MG TAB PO SCH ×2 (09:39→20:08)
[2016-09-08] MEDS: LACTOBACILLUS ACIDOPHILUS TAB PO SCH ×3 (09:39→18:29)
[2016-09-08] MEDS: METOPROLOL TARTRATE 25 MG TAB PO SCH ×2 (09:39→20:08)
[2016-09-08] MEDS: FERROUS SULFATE 325 MG (65 MG ELEMENTAL IRON) TAB PO SCH ×3 (09:39→18:29)
[2016-09-08] MEDS: CALCIUM/VITAMIN D 250 MG/125 U TAB PO SCH ×2 (09:39→20:08)
[2016-09-08] MEDS: NEOMYCIN/POLYMYXIN/BACITRACIN OINT 15 GM TUBE TOPICAL SCH ×2 (09:42→20:09)
[2016-09-08 12:00] VITALS: BP 122/57; PULSE 71; RESP 18; TEMP 97.4; O2SAT 98
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
[2016-09-08 16:00] VITALS: BP 121/62; PULSE 75; RESP 18; TEMP 97.2; O2SAT 97
[2016-09-08 20:00] VITALS: BP 130/63; PULSE 78; RESP 20; TEMP 97.3; O2SAT 96
[2016-09-09 00:07] VITALS: BP 113/60; PULSE 76; RESP 19; TEMP 96.8; O2SAT 98
[2016-09-09] MEDS: CARISOPRODOL 350 MG TAB PO PRN ×2 (03:55→17:02)
[2016-09-09] MEDS: ENOXAPARIN SODIUM 60 MG/0.6 ML SYRINGE SQ SCH ×2 (03:56→17:02)
[2016-09-09 08:00] VITALS: BP 109/63; PULSE 78; RESP 17; TEMP 96; O2SAT 96
[2016-09-09] MEDS: NEOMYCIN/POLYMYXIN/BACITRACIN OINT 15 GM TUBE TOPICAL SCH ×2 (09:00→21:00)
[2016-09-09] MEDS: MULTIVITAMINS/IRON/MINERALS CHEWABLE TAB CHEW SCH (10:00)
[2016-09-09] MEDS: ASCORBIC ACID 500 MG TAB PO SCH ×3 (10:00→17:02)
[2016-09-09] MEDS: CALCIUM/VITAMIN D 250 MG/125 U TAB PO SCH ×2 (10:00→21:00)
[2016-09-09] MEDS: LACTOBACILLUS ACIDOPHILUS TAB PO SCH ×3 (10:00→17:02)
[2016-09-09] MEDS: buPROPion HCL 100 MG TAB PO SCH ×2 (10:01→21:00)
[2016-09-09] MEDS: METOPROLOL TARTRATE 25 MG TAB PO SCH ×2 (10:01→21:00)
[2016-09-09] MEDS: FAMOTIDINE 20 MG TAB PO SCH ×2 (10:01→21:00)
[2016-09-09] MEDS: FERROUS SULFATE 325 MG (65 MG ELEMENTAL IRON) TAB PO SCH ×3 (10:01→17:02)
[2016-09-09 12:00] VITALS: BP 131/59; PULSE 76; RESP 16; TEMP 97.5; O2SAT 97
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
[2016-09-09 16:00] VITALS: BP 123/72; PULSE 72; RESP 16; TEMP 96.2; O2SAT 97
[2016-09-09 20:00] VITALS: BP 132/78; PULSE 90; RESP 20; TEMP 96; O2SAT 97
[2016-09-10] MEDS: ENOXAPARIN SODIUM 60 MG/0.6 ML SYRINGE SQ SCH ×2 (04:00→16:00)
[2016-09-10] MEDS: CARISOPRODOL 350 MG TAB PO PRN ×2 (06:25→15:00)
[2016-09-10 08:00] VITALS: BP 128/76; PULSE 106; RESP 19; TEMP 97.6; O2SAT 96
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
[2016-09-10] MEDS: NEOMYCIN/POLYMYXIN/BACITRACIN OINT 15 GM TUBE TOPICAL SCH ×2 (09:00→19:46)
[2016-09-10] MEDS: CALCIUM/VITAMIN D 250 MG/125 U TAB PO SCH ×2 (09:00→19:45)
[2016-09-10] MEDS: ERGOCALCIFEROL (VIT D2) 50,000 UNIT CAP PO SCH (09:00)
[2016-09-10] MEDS: ASCORBIC ACID 500 MG TAB PO SCH ×3 (09:00→18:00)
[2016-09-10] MEDS: METOPROLOL TARTRATE 25 MG TAB PO SCH ×2 (09:00→19:45)
[2016-09-10] MEDS: MULTIVITAMINS/IRON/MINERALS CHEWABLE TAB CHEW SCH (09:00)
[2016-09-10] MEDS: buPROPion HCL 100 MG TAB PO SCH ×2 (09:00→19:46)
[2016-09-10] MEDS: FERROUS SULFATE 325 MG (65 MG ELEMENTAL IRON) TAB PO SCH ×3 (09:00→18:00)
[2016-09-10] MEDS: LACTOBACILLUS ACIDOPHILUS TAB PO SCH ×3 (09:00→18:00)
[2016-09-10] MEDS: FAMOTIDINE 20 MG TAB PO SCH ×2 (09:00→19:45)
[2016-09-10 12:00] VITALS: BP 136/79; PULSE 82; RESP 21; TEMP 97.3; O2SAT 97
[2016-09-10 16:00] VITALS: BP 132/78; PULSE 78; RESP 19; TEMP 97.9; O2SAT 97
[2016-09-10 20:00] VITALS: BP 127/71; PULSE 82; RESP 18; TEMP 98.2; O2SAT 98
[2016-09-11] VITALS: BP 130/65; PULSE 74; RESP 18; TEMP 98.8; O2SAT 95
[2016-09-11] MEDS: CARISOPRODOL 350 MG TAB PO PRN ×3 (00:12→20:46)
[2016-09-11 04:00] VITALS: BP 136/70; PULSE 78; RESP 20; TEMP 98.9; O2SAT 99
[2016-09-11] MEDS: ENOXAPARIN SODIUM 60 MG/0.6 ML SYRINGE SQ SCH ×2 (04:00→16:36)
[2016-09-11 08:00] VITALS: BP 124/68; PULSE 115; RESP 18; TEMP 96.3; O2SAT 97
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
[2016-09-11] MEDS: ASCORBIC ACID 500 MG TAB PO SCH ×3 (08:19→16:36)
[2016-09-11] MEDS: MULTIVITAMINS/IRON/MINERALS CHEWABLE TAB CHEW SCH (08:19)
[2016-09-11] MEDS: buPROPion HCL 100 MG TAB PO SCH ×2 (08:19→20:46)
[2016-09-11] MEDS: FERROUS SULFATE 325 MG (65 MG ELEMENTAL IRON) TAB PO SCH ×3 (08:19→16:36)
[2016-09-11] MEDS: LACTOBACILLUS ACIDOPHILUS TAB PO SCH ×3 (08:19→16:36)
[2016-09-11] MEDS: METOPROLOL TARTRATE 25 MG TAB PO SCH ×2 (08:19→20:46)
[2016-09-11] MEDS: FAMOTIDINE 20 MG TAB PO SCH ×2 (08:19→20:46)
[2016-09-11] MEDS: CALCIUM/VITAMIN D 250 MG/125 U TAB PO SCH ×2 (08:19→20:46)
[2016-09-11] MEDS: NEOMYCIN/POLYMYXIN/BACITRACIN OINT 15 GM TUBE TOPICAL SCH ×2 (08:22→20:51)
[2016-09-11] MEDS: diphenhydrAMINE HCL 25 MG CAP PO PRN (08:35)
[2016-09-11] MEDS: LORazepam 1 MG TAB PO PRN (10:34)
[2016-09-11 12:00] VITALS: BP 128/65; PULSE 82; RESP 20; TEMP 95.9; O2SAT 98
[2016-09-11 12:15] LABS: AUTOMATED NEUTROPHIL # 5.4 TH/MM3 (1.8-7.7); BASOPHIL % 0.6 % (0.0-2.0); EOSINOPHIL # 0.2 TH/MM3 (0-0.4); HEMATOCRIT 34.2 % (39.0-51.0); HEMO FLAGS DIFF FINAL; LYMPHOCYTE # 1.5 TH/MM3 (1.0-4.8); MEAN CELL VOLUME 76.3 FL (80.0-100.0); MEAN CORPUSCULAR HEMOGLOBIN 25.1 PG (27.0-34.0); MEAN CORPUSCULAR HGB CONC 32.9 % (32.0-36.0); MONO % 6.6 % (0.0-8.0); NEUT % 70.8 % (16.0-70.0); PLATELET COUNT 194 TH/MM3 (150-450); RED BLOOD COUNT 4.48 MIL/MM3 (4.50-5.90); RED CELL DISTRIBUTION WIDTH 16.8 % (11.6-17.2); WHITE BLOOD COUNT 7.6 TH/MM3 (4.0-11.0)
[2016-09-11 12:34] LABS: BICARBONATE 28.3 MEQ/L (21.0-32.0); POTASSIUM 3.8 MEQ/L (3.5-5.1)
[2016-09-11 16:00] VITALS: BP 127/75; PULSE 98; RESP 19; TEMP 97.2; O2SAT 96
[2016-09-11 20:46] VITALS: BP 128/74; PULSE 90; RESP 18; TEMP 97.9; O2SAT 96
[2016-09-12 00:27] VITALS: BP 119/63; PULSE 79; RESP 18; TEMP 98.6; O2SAT 98
[2016-09-12] MEDS: ENOXAPARIN SODIUM 60 MG/0.6 ML SYRINGE SQ SCH ×2 (04:36→17:15)
[2016-09-12 08:00] VITALS: BP 116/55; PULSE 75; RESP 18; TEMP 95.5; O2SAT 97
[2016-09-12] MEDS: NEOMYCIN/POLYMYXIN/BACITRACIN OINT 15 GM TUBE TOPICAL SCH ×2 (09:00→21:00)
[2016-09-12] MEDS: ASCORBIC ACID 500 MG TAB PO SCH ×3 (10:00→17:15)
[2016-09-12] MEDS: FAMOTIDINE 20 MG TAB PO SCH ×2 (10:00→22:30)
[2016-09-12] MEDS: LACTOBACILLUS ACIDOPHILUS TAB PO SCH ×3 (10:00→17:15)
[2016-09-12] MEDS: CARISOPRODOL 350 MG TAB PO PRN ×2 (10:00→22:30)
[2016-09-12] MEDS: CALCIUM/VITAMIN D 250 MG/125 U TAB PO SCH ×2 (10:00→22:30)
[2016-09-12] MEDS: METOPROLOL TARTRATE 25 MG TAB PO SCH ×2 (10:00→22:30)
[2016-09-12] MEDS: FERROUS SULFATE 325 MG (65 MG ELEMENTAL IRON) TAB PO SCH ×3 (10:01→17:15)
[2016-09-12] MEDS: LORazepam 1 MG TAB PO PRN (10:01)
[2016-09-12] MEDS: MULTIVITAMINS/IRON/MINERALS CHEWABLE TAB CHEW SCH (10:01)
[2016-09-12] MEDS: buPROPion HCL 100 MG TAB PO SCH ×2 (10:02→22:30)
[2016-09-12 12:00] VITALS: BP 131/67; PULSE 90; RESP 18; TEMP 97.1; O2SAT 95
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
[2016-09-12 16:00] VITALS: BP 117/67; PULSE 90; RESP 17; TEMP 97.8; O2SAT 99
[2016-09-12 20:14] VITALS: BP 127/67; PULSE 84; RESP 18; TEMP 98.8; O2SAT 97
[2016-09-13 00:03] VITALS: BP 129/66; PULSE 74; RESP 20; TEMP 96.8; O2SAT 96
[2016-09-13] MEDS: ENOXAPARIN SODIUM 60 MG/0.6 ML SYRINGE SQ SCH ×2 (05:30→17:59)
[2016-09-13 08:00] VITALS: BP 119/61; PULSE 66; RESP 17; TEMP 97.4; O2SAT 98
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
[2016-09-13] MEDS: CARISOPRODOL 350 MG TAB PO PRN ×2 (10:27→20:45)
[2016-09-13] MEDS: FAMOTIDINE 20 MG TAB PO SCH ×2 (10:27→20:44)
[2016-09-13] MEDS: LORazepam 1 MG TAB PO PRN (10:27)
[2016-09-13] MEDS: LACTOBACILLUS ACIDOPHILUS TAB PO SCH ×3 (10:27→17:58)
[2016-09-13] MEDS: MULTIVITAMINS/IRON/MINERALS CHEWABLE TAB CHEW SCH (10:28)
[2016-09-13] MEDS: METOPROLOL TARTRATE 25 MG TAB PO SCH ×2 (10:28→23:04)
[2016-09-13] MEDS: buPROPion HCL 100 MG TAB PO SCH ×2 (10:28→20:44)
[2016-09-13] MEDS: FERROUS SULFATE 325 MG (65 MG ELEMENTAL IRON) TAB PO SCH ×3 (10:28→17:58)
[2016-09-13] MEDS: CALCIUM/VITAMIN D 250 MG/125 U TAB PO SCH ×2 (10:28→20:44)
[2016-09-13] MEDS: ASCORBIC ACID 500 MG TAB PO SCH ×3 (10:28→17:58)
[2016-09-13] MEDS: NEOMYCIN/POLYMYXIN/BACITRACIN OINT 15 GM TUBE TOPICAL SCH ×2 (10:29→20:52)
[2016-09-13 12:00] VITALS: BP 124/60; PULSE 75; RESP 18; TEMP 95.8; O2SAT 94
[2016-09-13 16:00] VITALS: BP 107/51; PULSE 62; RESP 18; TEMP 95.6; O2SAT 91
[2016-09-13 20:00] VITALS: BP 134/66; PULSE 73; RESP 20; TEMP 96.3; O2SAT 96
[2016-09-14] VITALS: BP 116/59; PULSE 70; RESP 22; TEMP 96.7; O2SAT 95
[2016-09-14 04:00] VITALS: BP 108/56; PULSE 70; RESP 20; TEMP 97.8; O2SAT 95
[2016-09-14] MEDS: CARISOPRODOL 350 MG TAB PO PRN ×3 (05:43→18:28)
[2016-09-14] MEDS: ENOXAPARIN SODIUM 60 MG/0.6 ML SYRINGE SQ SCH ×2 (05:43→15:02)
[2016-09-14 06:00] VITALS: BP 113/71; PULSE 77; RESP 18; TEMP 98.7; O2SAT 98
[2016-09-14 08:00] VITALS: BP 110/64; PULSE 75; RESP 17; TEMP 98.3; O2SAT 99
[2016-09-14] MEDS: CALCIUM/VITAMIN D 250 MG/125 U TAB PO SCH ×2 (10:04→21:21)
[2016-09-14] MEDS: LACTOBACILLUS ACIDOPHILUS TAB PO SCH ×3 (10:04→18:31)
[2016-09-14] MEDS: buPROPion HCL 100 MG TAB PO SCH ×2 (10:04→21:21)
[2016-09-14] MEDS: FAMOTIDINE 20 MG TAB PO SCH ×2 (10:05→21:21)
[2016-09-14] MEDS: FERROUS SULFATE 325 MG (65 MG ELEMENTAL IRON) TAB PO SCH ×3 (10:05→18:30)
[2016-09-14] MEDS: ASCORBIC ACID 500 MG TAB PO SCH ×3 (10:05→18:30)
[2016-09-14] MEDS: METOPROLOL TARTRATE 25 MG TAB PO SCH ×2 (10:05→21:21)
[2016-09-14] MEDS: MULTIVITAMINS/IRON/MINERALS CHEWABLE TAB CHEW SCH (10:05)
[2016-09-14] MEDS: LORazepam 1 MG TAB PO PRN (10:19)
[2016-09-14 12:00] VITALS: BP 108/70; PULSE 70; RESP 17; TEMP 98; O2SAT 96
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
[2016-09-14] MEDS: NEOMYCIN/POLYMYXIN/BACITRACIN OINT 15 GM TUBE TOPICAL SCH ×2 (15:03→21:23)
[2016-09-14 20:00] VITALS: BP 112/55; PULSE 74; RESP 22; TEMP 97.5; O2SAT 98
[2016-09-15] VITALS: BP 101/54; PULSE 75; RESP 22; TEMP 97.5; O2SAT 96
[2016-09-15] MEDS: ENOXAPARIN SODIUM 60 MG/0.6 ML SYRINGE SQ SCH ×2 (04:01→18:25)
[2016-09-15 08:00] VITALS: BP 109/65; PULSE 66; RESP 16; TEMP 98.2; O2SAT 96
[2016-09-15] MEDS: MULTIVITAMINS/IRON/MINERALS CHEWABLE TAB CHEW SCH (10:05)
[2016-09-15] MEDS: LACTOBACILLUS ACIDOPHILUS TAB PO SCH ×3 (10:06→18:25)
[2016-09-15] MEDS: FERROUS SULFATE 325 MG (65 MG ELEMENTAL IRON) TAB PO SCH ×3 (10:06→18:25)
[2016-09-15] MEDS: CARISOPRODOL 350 MG TAB PO PRN ×2 (10:06→18:24)
[2016-09-15] MEDS: ASCORBIC ACID 500 MG TAB PO SCH ×3 (10:06→18:25)
[2016-09-15] MEDS: SULFAMETHOXAZOLE-TRIMETHOPRIM DS 800-160 MG TAB PO SCH ×2 (10:06→22:47)
[2016-09-15] MEDS: CALCIUM/VITAMIN D 250 MG/125 U TAB PO SCH ×2 (10:06→22:47)
[2016-09-15] MEDS: buPROPion HCL 100 MG TAB PO SCH ×2 (10:07→22:47)
[2016-09-15] MEDS: FAMOTIDINE 20 MG TAB PO SCH ×2 (10:07→22:46)
[2016-09-15] MEDS: METOPROLOL TARTRATE 25 MG TAB PO SCH ×2 (10:07→22:47)
[2016-09-15] MEDS: NEOMYCIN/POLYMYXIN/BACITRACIN OINT 15 GM TUBE TOPICAL SCH ×2 (10:08→22:47)
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
[2016-09-15 12:00] VITALS: BP 110/66; PULSE 70; RESP 18; TEMP 97.8; O2SAT 99
[2016-09-15 16:00] VITALS: BP 112/70; PULSE 69; RESP 17; TEMP 96.9; O2SAT 97
[2016-09-15 20:00] VITALS: BP 111/56; PULSE 72; RESP 18; TEMP 97.4; O2SAT 97
[2016-09-16] VITALS: BP 117/57; PULSE 78; RESP 20; TEMP 98.2; O2SAT 97
[2016-09-16] MEDS: ENOXAPARIN SODIUM 60 MG/0.6 ML SYRINGE SQ SCH ×2 (05:54→17:13)
[2016-09-16 08:00] VITALS: BP 105/54; PULSE 64; RESP 18; TEMP 96.9; O2SAT 95
[2016-09-16] MEDS: METOPROLOL TARTRATE 25 MG TAB PO SCH ×2 (09:00→21:14)
[2016-09-16] MEDS: NEOMYCIN/POLYMYXIN/BACITRACIN OINT 15 GM TUBE TOPICAL SCH ×2 (09:00→21:17)
[2016-09-16] MEDS: buPROPion HCL 100 MG TAB PO SCH ×2 (09:57→21:15)
[2016-09-16] MEDS: SULFAMETHOXAZOLE-TRIMETHOPRIM DS 800-160 MG TAB PO SCH ×2 (09:57→21:15)
[2016-09-16] MEDS: CARISOPRODOL 350 MG TAB PO PRN ×2 (09:57→17:53)
[2016-09-16] MEDS: MULTIVITAMINS/IRON/MINERALS CHEWABLE TAB CHEW SCH (09:58)
[2016-09-16] MEDS: FERROUS SULFATE 325 MG (65 MG ELEMENTAL IRON) TAB PO SCH ×3 (09:58→17:13)
[2016-09-16] MEDS: LACTOBACILLUS ACIDOPHILUS TAB PO SCH ×3 (09:58→17:13)
[2016-09-16] MEDS: CALCIUM/VITAMIN D 250 MG/125 U TAB PO SCH ×2 (09:58→21:15)
[2016-09-16] MEDS: FAMOTIDINE 20 MG TAB PO SCH ×2 (09:58→21:14)
[2016-09-16] MEDS: ASCORBIC ACID 500 MG TAB PO SCH ×3 (09:58→17:13)
[2016-09-16 12:00] VITALS: BP 121/58; PULSE 70; RESP 18; TEMP 97.8; O2SAT 94
[2016-09-16 16:00] VITALS: BP 116/66; PULSE 73; RESP 18; TEMP 97.9; O2SAT 97
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
[2016-09-16 20:00] VITALS: BP 115/59; PULSE 80; RESP 20; TEMP 97.5; O2SAT 95
[2016-09-17] VITALS: BP 124/61; PULSE 79; RESP 18; TEMP 97.8; O2SAT 95
[2016-09-17] MEDS: CARISOPRODOL 350 MG TAB PO PRN ×3 (01:47→18:15)
[2016-09-17] MEDS: ENOXAPARIN SODIUM 60 MG/0.6 ML SYRINGE SQ SCH ×2 (04:34→17:18)
[2016-09-17 08:00] VITALS: BP 115/55; PULSE 67; RESP 20; TEMP 94.6; O2SAT 97
[2016-09-17] MEDS: MULTIVITAMINS/IRON/MINERALS CHEWABLE TAB CHEW SCH (09:32)
[2016-09-17] MEDS: LACTOBACILLUS ACIDOPHILUS TAB PO SCH ×3 (09:32→18:11)
[2016-09-17] MEDS: buPROPion HCL 100 MG TAB PO SCH ×2 (09:32→20:54)
[2016-09-17] MEDS: ERGOCALCIFEROL (VIT D2) 50,000 UNIT CAP PO SCH (09:33)
[2016-09-17] MEDS: SULFAMETHOXAZOLE-TRIMETHOPRIM DS 800-160 MG TAB PO SCH ×2 (09:33→20:54)
[2016-09-17] MEDS: FAMOTIDINE 20 MG TAB PO SCH ×2 (09:33→20:54)
[2016-09-17] MEDS: FERROUS SULFATE 325 MG (65 MG ELEMENTAL IRON) TAB PO SCH ×3 (09:33→18:11)
[2016-09-17] MEDS: CALCIUM/VITAMIN D 250 MG/125 U TAB PO SCH ×2 (09:33→20:54)
[2016-09-17] MEDS: ASCORBIC ACID 500 MG TAB PO SCH ×3 (09:33→18:11)
[2016-09-17] MEDS: NEOMYCIN/POLYMYXIN/BACITRACIN OINT 15 GM TUBE TOPICAL SCH ×2 (09:35→20:56)
[2016-09-17] MEDS: METOPROLOL TARTRATE 25 MG TAB PO SCH ×2 (09:38→20:56)
[2016-09-17] MEDS: LORazepam 1 MG TAB PO PRN (09:39)
[2016-09-17] MEDS: LOPERAMIDE HCL SOLN 2 MG/10 ML UDC PO PRN (11:01)
[2016-09-17 12:00] VITALS: BP 115/55; PULSE 67; RESP 19; TEMP 97.6; O2SAT 97
[2016-09-17 16:00] VITALS: BP 132/62; PULSE 72; RESP 20; TEMP 97.6; O2SAT 96
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
[2016-09-17 20:00] VITALS: BP 110/60; PULSE 76; RESP 17; TEMP 97.2; O2SAT 97
[2016-09-18] VITALS: BP 124/68; PULSE 72; RESP 17; TEMP 97.9; O2SAT 97
[2016-09-18] MEDS: CARISOPRODOL 350 MG TAB PO PRN ×2 (04:06→14:24)
[2016-09-18] MEDS: ENOXAPARIN SODIUM 60 MG/0.6 ML SYRINGE SQ SCH ×2 (04:06→14:25)
[2016-09-18 08:00] VITALS: BP 110/60; PULSE 77; RESP 18; TEMP 97.7; O2SAT 97
[2016-09-18] MEDS: NEOMYCIN/POLYMYXIN/BACITRACIN OINT 15 GM TUBE TOPICAL SCH ×2 (09:00→20:17)
[2016-09-18] MEDS: METOPROLOL TARTRATE 25 MG TAB PO SCH ×2 (09:00→20:16)
[2016-09-18] MEDS: buPROPion HCL 100 MG TAB PO SCH ×2 (10:12→20:16)
[2016-09-18] MEDS: ASCORBIC ACID 500 MG TAB PO SCH ×3 (10:12→16:29)
[2016-09-18] MEDS: MULTIVITAMINS/IRON/MINERALS CHEWABLE TAB CHEW SCH (10:12)
[2016-09-18] MEDS: CALCIUM/VITAMIN D 250 MG/125 U TAB PO SCH ×2 (10:12→20:16)
[2016-09-18] MEDS: FAMOTIDINE 20 MG TAB PO SCH ×2 (10:13→20:16)
[2016-09-18] MEDS: LACTOBACILLUS ACIDOPHILUS TAB PO SCH ×3 (10:14→16:29)
[2016-09-18] MEDS: SULFAMETHOXAZOLE-TRIMETHOPRIM DS 800-160 MG TAB PO SCH ×2 (10:14→20:16)
[2016-09-18] MEDS: FERROUS SULFATE 325 MG (65 MG ELEMENTAL IRON) TAB PO SCH ×3 (10:14→16:29)
[2016-09-18] MEDS: LORazepam 1 MG TAB PO PRN (10:31)
[2016-09-18 12:00] VITALS: BP 115/70; PULSE 83; RESP 21; TEMP 96.8; O2SAT 97
[2016-09-18 16:00] VITALS: BP 125/67; PULSE 115; RESP 20; TEMP 96.9; O2SAT 97
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
[2016-09-18 20:00] VITALS: BP 108/59; PULSE 77; RESP 18; TEMP 98.3; O2SAT 96
[2016-09-19] VITALS: BP 100/56; PULSE 79; RESP 18; TEMP 98.1; O2SAT 96
[2016-09-19] MEDS: CARISOPRODOL 350 MG TAB PO PRN ×3 (00:06→17:50)
[2016-09-19] MEDS: ENOXAPARIN SODIUM 60 MG/0.6 ML SYRINGE SQ SCH ×2 (04:14→15:33)
[2016-09-19 08:00] VITALS: BP 126/59; PULSE 91; RESP 20; TEMP 97.2; O2SAT 97
[2016-09-19] MEDS: NEOMYCIN/POLYMYXIN/BACITRACIN OINT 15 GM TUBE TOPICAL SCH ×2 (09:00→20:34)
[2016-09-19] MEDS: ASCORBIC ACID 500 MG TAB PO SCH ×3 (09:26→17:50)
[2016-09-19] MEDS: CALCIUM/VITAMIN D 250 MG/125 U TAB PO SCH ×2 (09:26→20:34)
[2016-09-19] MEDS: LACTOBACILLUS ACIDOPHILUS TAB PO SCH ×3 (09:26→17:50)
[2016-09-19] MEDS: METOPROLOL TARTRATE 25 MG TAB PO SCH ×2 (09:26→20:34)
[2016-09-19] MEDS: MULTIVITAMINS/IRON/MINERALS CHEWABLE TAB CHEW SCH (09:26)
[2016-09-19] MEDS: FERROUS SULFATE 325 MG (65 MG ELEMENTAL IRON) TAB PO SCH ×3 (09:27→17:50)
[2016-09-19] MEDS: SULFAMETHOXAZOLE-TRIMETHOPRIM DS 800-160 MG TAB PO SCH ×2 (09:27→20:34)
[2016-09-19] MEDS: FAMOTIDINE 20 MG TAB PO SCH ×2 (09:27→20:34)
[2016-09-19] MEDS: buPROPion HCL 100 MG TAB PO SCH ×2 (09:27→20:34)
[2016-09-19] MEDS: LORazepam 1 MG TAB PO PRN (10:22)
[2016-09-19 12:00] VITALS: BP 134/78; PULSE 99; RESP 20; TEMP 96.2; O2SAT 95
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
[2016-09-19 20:00] VITALS: BP 116/69; PULSE 100; RESP 16; TEMP 98.1; O2SAT 95
[2016-09-20] VITALS: BP 124/59; PULSE 85; RESP 16; TEMP 97.2; O2SAT 96
[2016-09-20] MEDS: CARISOPRODOL 350 MG TAB PO PRN ×3 (02:05→17:38)
[2016-09-20] MEDS: ENOXAPARIN SODIUM 60 MG/0.6 ML SYRINGE SQ SCH ×2 (03:30→17:39)
[2016-09-20 08:00] VITALS: BP 114/72; PULSE 72; RESP 20; TEMP 97.6; O2SAT 97
[2016-09-20] MEDS: NEOMYCIN/POLYMYXIN/BACITRACIN OINT 15 GM TUBE TOPICAL SCH ×2 (09:00→19:57)
[2016-09-20] MEDS: FAMOTIDINE 20 MG TAB PO SCH ×2 (09:55→19:54)
[2016-09-20] MEDS: METOPROLOL TARTRATE 25 MG TAB PO SCH ×2 (09:55→19:54)
[2016-09-20] MEDS: CALCIUM/VITAMIN D 250 MG/125 U TAB PO SCH ×2 (09:55→19:54)
[2016-09-20] MEDS: MULTIVITAMINS/IRON/MINERALS CHEWABLE TAB CHEW SCH (09:55)
[2016-09-20] MEDS: LACTOBACILLUS ACIDOPHILUS TAB PO SCH ×3 (09:55→17:38)
[2016-09-20] MEDS: ASCORBIC ACID 500 MG TAB PO SCH ×3 (09:55→17:38)
[2016-09-20] MEDS: FERROUS SULFATE 325 MG (65 MG ELEMENTAL IRON) TAB PO SCH ×3 (09:55→17:38)
[2016-09-20] MEDS: SULFAMETHOXAZOLE-TRIMETHOPRIM DS 800-160 MG TAB PO SCH ×2 (09:55→19:54)
[2016-09-20] MEDS: buPROPion HCL 100 MG TAB PO SCH ×2 (09:56→19:54)
[2016-09-20 12:00] VITALS: BP 131/56; PULSE 75; RESP 19; TEMP 97.8; O2SAT 96
[2016-09-20 16:00] VITALS: BP 120/54; PULSE 70; RESP 20; TEMP 97.8; O2SAT 98
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
[2016-09-20 20:00] VITALS: BP 119/59; PULSE 84; RESP 20; TEMP 96.8; O2SAT 98
[2016-09-21] VITALS: BP 117/57; PULSE 70; RESP 20; TEMP 97.1; O2SAT 96
[2016-09-21] MEDS: CARISOPRODOL 350 MG TAB PO PRN ×3 (02:07→18:18)
[2016-09-21] MEDS: ENOXAPARIN SODIUM 60 MG/0.6 ML SYRINGE SQ SCH ×2 (02:08→18:21)
[2016-09-21 08:00] VITALS: BP 106/53; PULSE 72; RESP 16; TEMP 97.5; O2SAT 97
[2016-09-21] MEDS: NEOMYCIN/POLYMYXIN/BACITRACIN OINT 15 GM TUBE TOPICAL SCH ×2 (09:00→21:00)
[2016-09-21] MEDS: buPROPion HCL 100 MG TAB PO SCH ×2 (10:17→21:39)
[2016-09-21] MEDS: LORazepam 1 MG TAB PO PRN (10:17)
[2016-09-21] MEDS: CALCIUM/VITAMIN D 250 MG/125 U TAB PO SCH ×2 (10:17→21:38)
[2016-09-21] MEDS: FERROUS SULFATE 325 MG (65 MG ELEMENTAL IRON) TAB PO SCH ×3 (10:18→18:18)
[2016-09-21] MEDS: SULFAMETHOXAZOLE-TRIMETHOPRIM DS 800-160 MG TAB PO SCH ×2 (10:18→21:39)
[2016-09-21] MEDS: METOPROLOL TARTRATE 25 MG TAB PO SCH ×2 (10:18→21:00)
[2016-09-21] MEDS: LACTOBACILLUS ACIDOPHILUS TAB PO SCH ×3 (10:18→18:19)
[2016-09-21] MEDS: ASCORBIC ACID 500 MG TAB PO SCH ×3 (10:18→18:18)
[2016-09-21] MEDS: FAMOTIDINE 20 MG TAB PO SCH ×2 (10:18→21:38)
[2016-09-21] MEDS: MULTIVITAMINS/IRON/MINERALS CHEWABLE TAB CHEW SCH (10:18)
[2016-09-21 12:00] VITALS: BP 121/63; PULSE 83; RESP 16; TEMP 97.4; O2SAT 97
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
[2016-09-21 16:00] VITALS: BP 99/56; PULSE 68; RESP 16; TEMP 97.3; O2SAT 96
[2016-09-21 20:00] VITALS: BP 100/48; PULSE 77; RESP 20; TEMP 97.1; O2SAT 98
[2016-09-22] VITALS: BP 108/56; PULSE 79; RESP 20; TEMP 96.2; O2SAT 96
[2016-09-22] MEDS: CARISOPRODOL 350 MG TAB PO PRN ×2 (04:22→16:12)
[2016-09-22] MEDS: ENOXAPARIN SODIUM 60 MG/0.6 ML SYRINGE SQ SCH ×2 (04:22→16:12)
[2016-09-22 08:00] VITALS: BP 120/55; PULSE 74; RESP 18; TEMP 96.8; O2SAT 96
[2016-09-22] MEDS: LACTOBACILLUS ACIDOPHILUS TAB PO SCH ×3 (09:17→17:18)
[2016-09-22] MEDS: METOPROLOL TARTRATE 25 MG TAB PO SCH ×2 (09:17→21:00)
[2016-09-22] MEDS: MULTIVITAMINS/IRON/MINERALS CHEWABLE TAB CHEW SCH (09:17)
[2016-09-22] MEDS: CALCIUM/VITAMIN D 250 MG/125 U TAB PO SCH ×2 (09:17→21:57)
[2016-09-22] MEDS: SULFAMETHOXAZOLE-TRIMETHOPRIM DS 800-160 MG TAB PO SCH ×2 (09:17→21:57)
[2016-09-22] MEDS: buPROPion HCL 100 MG TAB PO SCH ×2 (09:17→21:57)
[2016-09-22] MEDS: FERROUS SULFATE 325 MG (65 MG ELEMENTAL IRON) TAB PO SCH ×3 (09:18→17:18)
[2016-09-22] MEDS: FAMOTIDINE 20 MG TAB PO SCH ×2 (09:18→21:56)
[2016-09-22] MEDS: ASCORBIC ACID 500 MG TAB PO SCH ×3 (09:18→17:19)
[2016-09-22] MEDS: NEOMYCIN/POLYMYXIN/BACITRACIN OINT 15 GM TUBE TOPICAL SCH ×2 (09:23→21:00)
[2016-09-22 12:00] VITALS: BP 118/60; PULSE 76; RESP 18; TEMP 96.2; O2SAT 95
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
[2016-09-22 16:00] VITALS: BP 121/58; PULSE 77; RESP 18; TEMP 95.8; O2SAT 95
[2016-09-22 20:00] VITALS: BP 111/51; PULSE 85; RESP 20; TEMP 98.3; O2SAT 97
[2016-09-23] VITALS: BP 133/60; PULSE 84; RESP 20; TEMP 96.6; O2SAT 99
[2016-09-23] MEDS: CARISOPRODOL 350 MG TAB PO PRN ×3 (02:02→18:11)
[2016-09-23] MEDS: ENOXAPARIN SODIUM 60 MG/0.6 ML SYRINGE SQ SCH ×2 (04:16→17:11)
[2016-09-23 08:00] VITALS: BP 113/70; PULSE 74; RESP 17; TEMP 95.4; O2SAT 97
[2016-09-23] MEDS: METOPROLOL TARTRATE 25 MG TAB PO SCH ×2 (09:00→22:57)
[2016-09-23] MEDS: MULTIVITAMINS/IRON/MINERALS CHEWABLE TAB CHEW SCH (09:52)
[2016-09-23] MEDS: buPROPion HCL 100 MG TAB PO SCH ×2 (09:52→22:57)
[2016-09-23] MEDS: SULFAMETHOXAZOLE-TRIMETHOPRIM DS 800-160 MG TAB PO SCH ×2 (09:53→22:57)
[2016-09-23] MEDS: ASCORBIC ACID 500 MG TAB PO SCH ×3 (09:53→17:10)
[2016-09-23] MEDS: FAMOTIDINE 20 MG TAB PO SCH ×2 (09:53→22:57)
[2016-09-23] MEDS: FERROUS SULFATE 325 MG (65 MG ELEMENTAL IRON) TAB PO SCH ×3 (09:53→17:11)
[2016-09-23] MEDS: LACTOBACILLUS ACIDOPHILUS TAB PO SCH ×3 (09:53→17:11)
[2016-09-23] MEDS: CALCIUM/VITAMIN D 250 MG/125 U TAB PO SCH ×2 (09:53→22:57)
[2016-09-23] MEDS: NEOMYCIN/POLYMYXIN/BACITRACIN OINT 15 GM TUBE TOPICAL SCH ×2 (09:54→22:58)
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
[2016-09-23 12:00] VITALS: BP 114/66; PULSE 97; RESP 16; TEMP 95.2; O2SAT 97
[2016-09-23 16:00] VITALS: BP 123/69; PULSE 105; RESP 16; TEMP 96.4; O2SAT 97
[2016-09-23 20:00] VITALS: BP 131/67; PULSE 100; RESP 20; TEMP 97.2; O2SAT 96
[2016-09-24] VITALS: BP 116/66; PULSE 79; RESP 18; TEMP 97.3; O2SAT 95
[2016-09-24] MEDS: ENOXAPARIN SODIUM 60 MG/0.6 ML SYRINGE SQ SCH ×2 (04:00→17:55)
[2016-09-24 08:00] VITALS: BP 120/59; PULSE 99; RESP 16; TEMP 97.3; O2SAT 97
[2016-09-24] MEDS: MULTIVITAMINS/IRON/MINERALS CHEWABLE TAB CHEW SCH (10:00)
[2016-09-24] MEDS: FAMOTIDINE 20 MG TAB PO SCH ×2 (10:01→22:54)
[2016-09-24] MEDS: METOPROLOL TARTRATE 25 MG TAB PO SCH ×2 (10:01→21:00)
[2016-09-24] MEDS: FERROUS SULFATE 325 MG (65 MG ELEMENTAL IRON) TAB PO SCH ×3 (10:01→17:55)
[2016-09-24] MEDS: ASCORBIC ACID 500 MG TAB PO SCH ×3 (10:01→17:55)
[2016-09-24] MEDS: CARISOPRODOL 350 MG TAB PO PRN ×2 (10:01→17:54)
[2016-09-24] MEDS: LACTOBACILLUS ACIDOPHILUS TAB PO SCH ×3 (10:01→17:55)
[2016-09-24] MEDS: CALCIUM/VITAMIN D 250 MG/125 U TAB PO SCH ×2 (10:01→22:53)
[2016-09-24] MEDS: ERGOCALCIFEROL (VIT D2) 50,000 UNIT CAP PO SCH (10:01)
[2016-09-24] MEDS: SULFAMETHOXAZOLE-TRIMETHOPRIM DS 800-160 MG TAB PO SCH ×2 (10:01→22:53)
[2016-09-24] MEDS: LORazepam 0.5 MG TAB PO PRN (10:02)
[2016-09-24] MEDS: NEOMYCIN/POLYMYXIN/BACITRACIN OINT 15 GM TUBE TOPICAL SCH ×2 (10:07→21:00)
[2016-09-24] MEDS: buPROPion HCL 100 MG TAB PO SCH ×2 (10:09→22:54)
[2016-09-24 12:00] VITALS: BP 122/64; PULSE 93; RESP 18; TEMP 97.7; O2SAT 99
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
[2016-09-24 16:00] VITALS: BP 113/70; PULSE 84; RESP 17; TEMP 97; O2SAT 96
[2016-09-24 20:00] VITALS: BP 111/62; PULSE 72; RESP 20; TEMP 97.6; O2SAT 97
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
[2016-09-25] VITALS: BP 127/70; PULSE 77; RESP 20; TEMP 97.8; O2SAT 98
[2016-09-25] MEDS: CARISOPRODOL 350 MG TAB PO PRN ×2 (04:29→17:10)
[2016-09-25] MEDS: ENOXAPARIN SODIUM 60 MG/0.6 ML SYRINGE SQ SCH ×2 (04:29→17:10)
[2016-09-25 08:00] VITALS: BP 117/62; PULSE 78; RESP 16; TEMP 96.7; O2SAT 98
[2016-09-25] MEDS: NEOMYCIN/POLYMYXIN/BACITRACIN OINT 15 GM TUBE TOPICAL SCH ×2 (09:00→21:00)
[2016-09-25] MEDS: buPROPion HCL 100 MG TAB PO SCH ×2 (10:16→21:23)
[2016-09-25] MEDS: LACTOBACILLUS ACIDOPHILUS TAB PO SCH ×3 (10:16→17:10)
[2016-09-25] MEDS: ASCORBIC ACID 500 MG TAB PO SCH ×3 (10:16→17:10)
[2016-09-25] MEDS: CALCIUM/VITAMIN D 250 MG/125 U TAB PO SCH ×2 (10:16→21:23)
[2016-09-25] MEDS: FERROUS SULFATE 325 MG (65 MG ELEMENTAL IRON) TAB PO SCH ×3 (10:16→17:10)
[2016-09-25] MEDS: MULTIVITAMINS/IRON/MINERALS CHEWABLE TAB CHEW SCH (10:17)
[2016-09-25] MEDS: METOPROLOL TARTRATE 25 MG TAB PO SCH ×2 (10:17→21:23)
[2016-09-25] MEDS: FAMOTIDINE 20 MG TAB PO SCH ×2 (10:17→21:23)
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
[2016-09-25 12:00] VITALS: BP 112/60; PULSE 77; RESP 18; TEMP 97; O2SAT 94
[2016-09-25 16:00] VITALS: BP 125/77; PULSE 88; RESP 19; TEMP 98.5; O2SAT 100
[2016-09-25 20:00] VITALS: BP 124/60; PULSE 70; RESP 20; TEMP 97.9; O2SAT 99
[2016-09-26] VITALS: BP 118/57; PULSE 64; RESP 18; TEMP 97; O2SAT 97
[2016-09-26] MEDS: CARISOPRODOL 350 MG TAB PO PRN ×3 (01:19→17:58)
[2016-09-26] MEDS: ENOXAPARIN SODIUM 60 MG/0.6 ML SYRINGE SQ SCH ×2 (04:00→17:58)
[2016-09-26 08:00] VITALS: BP 108/53; PULSE 52; RESP 16; TEMP 96.4; O2SAT 98
[2016-09-26] MEDS: NEOMYCIN/POLYMYXIN/BACITRACIN OINT 15 GM TUBE TOPICAL SCH ×2 (09:00→20:36)
[2016-09-26] MEDS: METOPROLOL TARTRATE 25 MG TAB PO SCH ×2 (09:00→20:36)
[2016-09-26] MEDS: LACTOBACILLUS ACIDOPHILUS TAB PO SCH ×3 (10:02→17:58)
[2016-09-26] MEDS: CALCIUM/VITAMIN D 250 MG/125 U TAB PO SCH ×2 (10:02→20:35)
[2016-09-26] MEDS: FERROUS SULFATE 325 MG (65 MG ELEMENTAL IRON) TAB PO SCH ×3 (10:02→17:58)
[2016-09-26] MEDS: FAMOTIDINE 20 MG TAB PO SCH ×2 (10:02→20:36)
[2016-09-26] MEDS: MULTIVITAMINS/IRON/MINERALS CHEWABLE TAB CHEW SCH (10:02)
[2016-09-26] MEDS: LORazepam 0.5 MG TAB PO PRN (10:02)
[2016-09-26] MEDS: buPROPion HCL 100 MG TAB PO SCH ×2 (10:02→20:35)
[2016-09-26] MEDS: ASCORBIC ACID 500 MG TAB PO SCH ×3 (10:02→17:59)
[2016-09-26 10:38] LABS: BASOPHIL % 0.5 % (0.0-2.0); EOSINOPHIL # 0.2 TH/MM3 (0-0.4); EOSINOPHIL % 4.3 % (0.0-4.0); HEMATOCRIT 32.8 % (39.0-51.0); HEMO FLAGS DIFF FINAL; LYMPH % 30.2 % (9.0-44.0); LYMPHOCYTE # 1.5 TH/MM3 (1.0-4.8); MEAN CELL VOLUME 77.2 FL (80.0-100.0); MEAN CORPUSCULAR HEMOGLOBIN 25.7 PG (27.0-34.0); MEAN CORPUSCULAR HGB CONC 33.2 % (32.0-36.0); PLATELET COUNT 190 TH/MM3 (150-450); RED BLOOD COUNT 4.25 MIL/MM3 (4.50-5.90); RED CELL DISTRIBUTION WIDTH 17.7 % (11.6-17.2); WHITE BLOOD COUNT 5.1 TH/MM3 (4.0-11.0)
[2016-09-26 10:59] LABS: BICARBONATE 24.6 MEQ/L (21.0-32.0); POTASSIUM 4.1 MEQ/L (3.5-5.1)
[2016-09-26 12:00] VITALS: BP 123/65; PULSE 74; RESP 16; TEMP 95.4; O2SAT 96
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
[2016-09-26 16:00] VITALS: BP 161/58; PULSE 81; RESP 16; TEMP 95.3; O2SAT 97
[2016-09-26 20:00] VITALS: BP 123/69; PULSE 18; RESP 18; TEMP 99.2; O2SAT 97
[2016-09-27] VITALS: BP 115/64; PULSE 67; RESP 18; TEMP 98; O2SAT 97
[2016-09-27] MEDS: CARISOPRODOL 350 MG TAB PO PRN ×3 (01:52→18:21)
[2016-09-27] MEDS: ENOXAPARIN SODIUM 60 MG/0.6 ML SYRINGE SQ SCH ×2 (05:15→17:14)
[2016-09-27 08:00] VITALS: BP 116/83; PULSE 71; RESP 18; TEMP 93.4; O2SAT 98
[2016-09-27] MEDS: buPROPion HCL 100 MG TAB PO SCH ×2 (09:34→21:57)
[2016-09-27] MEDS: FERROUS SULFATE 325 MG (65 MG ELEMENTAL IRON) TAB PO SCH ×3 (09:34→17:14)
[2016-09-27] MEDS: MULTIVITAMINS/IRON/MINERALS CHEWABLE TAB CHEW SCH (09:34)
[2016-09-27] MEDS: CALCIUM/VITAMIN D 250 MG/125 U TAB PO SCH ×2 (09:34→21:57)
[2016-09-27] MEDS: LACTOBACILLUS ACIDOPHILUS TAB PO SCH ×3 (09:34→17:15)
[2016-09-27] MEDS: ASCORBIC ACID 500 MG TAB PO SCH ×3 (09:34→17:15)
[2016-09-27] MEDS: METOPROLOL TARTRATE 25 MG TAB PO SCH ×2 (09:34→21:57)
[2016-09-27] MEDS: FAMOTIDINE 20 MG TAB PO SCH ×2 (09:34→21:57)
[2016-09-27] MEDS: NEOMYCIN/POLYMYXIN/BACITRACIN OINT 15 GM TUBE TOPICAL SCH ×2 (09:35→21:59)
[2016-09-27] MEDS: LORazepam 0.5 MG TAB PO PRN (10:21)
[2016-09-27 16:00] VITALS: BP 110/69; PULSE 65; RESP 17; TEMP 96.4; O2SAT 98
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
[2016-09-27 20:00] VITALS: BP 127/59; PULSE 76; RESP 18; TEMP 97.2; O2SAT 97
[2016-09-28] VITALS: BP 117/54; PULSE 70; RESP 18; TEMP 97.6; O2SAT 96
[2016-09-28] MEDS: ENOXAPARIN SODIUM 60 MG/0.6 ML SYRINGE SQ SCH ×2 (04:00→16:43)
[2016-09-28 08:00] VITALS: BP 122/69; PULSE 64; RESP 16; TEMP 95; O2SAT 99
[2016-09-28] MEDS: FAMOTIDINE 20 MG TAB PO SCH ×2 (08:46→21:24)
[2016-09-28] MEDS: CALCIUM/VITAMIN D 250 MG/125 U TAB PO SCH ×2 (08:46→21:24)
[2016-09-28] MEDS: MULTIVITAMINS/IRON/MINERALS CHEWABLE TAB CHEW SCH (08:46)
[2016-09-28] MEDS: buPROPion HCL 100 MG TAB PO SCH ×2 (08:46→21:24)
[2016-09-28] MEDS: FERROUS SULFATE 325 MG (65 MG ELEMENTAL IRON) TAB PO SCH ×3 (08:46→16:40)
[2016-09-28] MEDS: METOPROLOL TARTRATE 25 MG TAB PO SCH ×2 (08:47→21:24)
[2016-09-28] MEDS: LACTOBACILLUS ACIDOPHILUS TAB PO SCH ×3 (08:47→16:40)
[2016-09-28] MEDS: ASCORBIC ACID 500 MG TAB PO SCH ×3 (08:47→16:40)
[2016-09-28] MEDS: CARISOPRODOL 350 MG TAB PO PRN ×2 (08:47→16:40)
[2016-09-28] MEDS: NEOMYCIN/POLYMYXIN/BACITRACIN OINT 15 GM TUBE TOPICAL SCH ×2 (08:47→21:26)
[2016-09-28] MEDS: LORazepam 0.5 MG TAB PO PRN (10:09)
[2016-09-28 12:00] VITALS: BP 109/53; PULSE 67; RESP 16; TEMP 96.1; O2SAT 95
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
[2016-09-28 16:00] VITALS: BP 125/60; PULSE 71; RESP 16; TEMP 97.7; O2SAT 96
[2016-09-28 20:00] VITALS: BP 126/66; PULSE 75; RESP 18; TEMP 98.2; O2SAT 96
[2016-09-29] VITALS: BP 116/57; PULSE 71; RESP 18; TEMP 98.9; O2SAT 96
[2016-09-29] MEDS: CARISOPRODOL 350 MG TAB PO PRN ×3 (01:46→18:24)
[2016-09-29] MEDS: ENOXAPARIN SODIUM 60 MG/0.6 ML SYRINGE SQ SCH ×2 (01:54→16:00)
[2016-09-29 08:00] VITALS: BP 109/61; PULSE 56; RESP 19; TEMP 96.4; O2SAT 99
[2016-09-29] MEDS: NEOMYCIN/POLYMYXIN/BACITRACIN OINT 15 GM TUBE TOPICAL SCH ×2 (09:00→21:40)
[2016-09-29] MEDS: CALCIUM/VITAMIN D 250 MG/125 U TAB PO SCH ×2 (09:01→21:39)
[2016-09-29] MEDS: METOPROLOL TARTRATE 25 MG TAB PO SCH ×2 (09:01→21:39)
[2016-09-29] MEDS: buPROPion HCL 100 MG TAB PO SCH ×2 (09:01→21:39)
[2016-09-29] MEDS: MULTIVITAMINS/IRON/MINERALS CHEWABLE TAB CHEW SCH (09:01)
[2016-09-29] MEDS: FERROUS SULFATE 325 MG (65 MG ELEMENTAL IRON) TAB PO SCH ×3 (09:01→18:24)
[2016-09-29] MEDS: FAMOTIDINE 20 MG TAB PO SCH ×2 (09:01→21:39)
[2016-09-29] MEDS: LACTOBACILLUS ACIDOPHILUS TAB PO SCH ×3 (09:01→18:24)
[2016-09-29] MEDS: ASCORBIC ACID 500 MG TAB PO SCH ×3 (09:01→18:24)
[2016-09-29] MEDS: LORazepam 0.5 MG TAB PO PRN (10:32)
[2016-09-29 12:00] VITALS: BP 113/65; PULSE 66; RESP 19; TEMP 97.7; O2SAT 97
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
[2016-09-29 16:00] VITALS: BP 100/60; PULSE 72; RESP 20; TEMP 98.6; O2SAT 98
[2016-09-29 17:36] LABS: BICARBONATE 29.4 MEQ/L (21.0-32.0); MAGNESIUM 2.2 MG/DL (1.5-2.5); POTASSIUM 4.5 MEQ/L (3.5-5.1)
[2016-09-29 20:00] VITALS: BP 116/61; PULSE 70; RESP 20; TEMP 96.7; O2SAT 98
[2016-09-30 00:37] VITALS: BP 101/61; PULSE 69; RESP 18; TEMP 96.3; O2SAT 96
[2016-09-30] MEDS: CARISOPRODOL 350 MG TAB PO PRN ×3 (02:27→17:25)
[2016-09-30] MEDS: ENOXAPARIN SODIUM 60 MG/0.6 ML SYRINGE SQ SCH ×2 (02:27→17:25)
[2016-09-30 08:00] VITALS: BP 99/55; PULSE 76; RESP 18; TEMP 96.1; O2SAT 97
[2016-09-30] MEDS: MULTIVITAMINS/IRON/MINERALS CHEWABLE TAB CHEW SCH (09:00)
[2016-09-30] MEDS: METOPROLOL TARTRATE 25 MG TAB PO SCH ×2 (10:27→20:18)
[2016-09-30] MEDS: ASCORBIC ACID 500 MG TAB PO SCH ×3 (10:27→18:24)
[2016-09-30] MEDS: buPROPion HCL 100 MG TAB PO SCH ×2 (10:27→20:18)
[2016-09-30] MEDS: CALCIUM/VITAMIN D 250 MG/125 U TAB PO SCH ×2 (10:27→20:17)
[2016-09-30] MEDS: LACTOBACILLUS ACIDOPHILUS TAB PO SCH ×3 (10:27→17:25)
[2016-09-30] MEDS: FAMOTIDINE 20 MG TAB PO SCH ×2 (10:27→20:18)
[2016-09-30] MEDS: FERROUS SULFATE 325 MG (65 MG ELEMENTAL IRON) TAB PO SCH ×3 (10:27→17:26)
[2016-09-30 12:00] VITALS: BP 110/57; PULSE 62; RESP 18; TEMP 95.5; O2SAT 97
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
[2016-09-30 16:00] VITALS: BP 123/71; PULSE 75; RESP 19; TEMP 98.3; O2SAT 96
[2016-09-30] MEDS: NEOMYCIN/POLYMYXIN/BACITRACIN OINT 15 GM TUBE TOPICAL SCH ×2 (17:24→20:19)
[2016-09-30 20:00] VITALS: BP 117/58; PULSE 69; RESP 20; TEMP 97.7; O2SAT 98
[2016-10-01] VITALS: BP 114/55; PULSE 72; RESP 13; TEMP 97.2; O2SAT 98
[2016-10-01] MEDS: CARISOPRODOL 350 MG TAB PO PRN ×3 (01:53→21:03)
[2016-10-01] MEDS: ENOXAPARIN SODIUM 60 MG/0.6 ML SYRINGE SQ SCH ×2 (05:43→17:04)
[2016-10-01 08:00] VITALS: BP 115/60; PULSE 64; RESP 18; TEMP 96.9; O2SAT 97
[2016-10-01] MEDS: ERGOCALCIFEROL (VIT D2) 50,000 UNIT CAP PO SCH (08:40)
[2016-10-01] MEDS: ASCORBIC ACID 500 MG TAB PO SCH ×3 (08:40→17:04)
[2016-10-01] MEDS: LACTOBACILLUS ACIDOPHILUS TAB PO SCH ×3 (08:40→17:04)
[2016-10-01] MEDS: FAMOTIDINE 20 MG TAB PO SCH ×2 (08:40→21:02)
[2016-10-01] MEDS: CALCIUM/VITAMIN D 250 MG/125 U TAB PO SCH ×2 (08:40→21:02)
[2016-10-01] MEDS: buPROPion HCL 100 MG TAB PO SCH ×2 (08:40→21:02)
[2016-10-01] MEDS: METOPROLOL TARTRATE 25 MG TAB PO SCH ×2 (08:40→21:02)
[2016-10-01] MEDS: FERROUS SULFATE 325 MG (65 MG ELEMENTAL IRON) TAB PO SCH ×3 (08:40→17:04)
[2016-10-01] MEDS: NEOMYCIN/POLYMYXIN/BACITRACIN OINT 15 GM TUBE TOPICAL SCH ×2 (08:41→21:06)
[2016-10-01] MEDS: MULTIVITAMINS/IRON/MINERALS CHEWABLE TAB CHEW SCH (08:41)
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
[2016-10-01] MEDS: LORazepam 0.5 MG TAB PO PRN (10:30)
[2016-10-01 20:00] VITALS: BP 128/69; PULSE 84; RESP 18; TEMP 97.6; O2SAT 98
[2016-10-02] VITALS: BP 118/59; PULSE 78; RESP 18; TEMP 97.9; O2SAT 97
[2016-10-02] MEDS: ENOXAPARIN SODIUM 60 MG/0.6 ML SYRINGE SQ SCH ×2 (03:21→16:44)
[2016-10-02] MEDS: CARISOPRODOL 350 MG TAB PO PRN ×3 (05:36→20:20)
[2016-10-02 08:00] VITALS: BP 119/58; PULSE 64; RESP 16; TEMP 97; O2SAT 99
[2016-10-02] MEDS: LACTOBACILLUS ACIDOPHILUS TAB PO SCH ×3 (09:25→16:43)
[2016-10-02] MEDS: FERROUS SULFATE 325 MG (65 MG ELEMENTAL IRON) TAB PO SCH ×3 (09:25→16:43)
[2016-10-02] MEDS: MULTIVITAMINS/IRON/MINERALS CHEWABLE TAB CHEW SCH (09:25)
[2016-10-02] MEDS: FAMOTIDINE 20 MG TAB PO SCH ×2 (09:26→20:20)
[2016-10-02] MEDS: CALCIUM/VITAMIN D 250 MG/125 U TAB PO SCH ×2 (09:26→20:20)
[2016-10-02] MEDS: METOPROLOL TARTRATE 25 MG TAB PO SCH ×2 (09:26→20:23)
[2016-10-02] MEDS: ASCORBIC ACID 500 MG TAB PO SCH ×2 (09:26→12:46)
[2016-10-02] MEDS: buPROPion HCL 100 MG TAB PO SCH ×2 (09:27→20:19)
[2016-10-02] MEDS: NEOMYCIN/POLYMYXIN/BACITRACIN OINT 15 GM TUBE TOPICAL SCH ×2 (09:33→20:23)
[2016-10-02] MEDS: LORazepam 0.5 MG TAB PO PRN (10:31)
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
[2016-10-02 20:00] VITALS: BP 101/50; PULSE 67; RESP 18; TEMP 97.9; O2SAT 98
[2016-10-03] MEDS: ENOXAPARIN SODIUM 60 MG/0.6 ML SYRINGE SQ SCH ×2 (05:40→17:01)
[2016-10-03 08:00] VITALS: BP 123/71; PULSE 66; RESP 17; TEMP 96.3; O2SAT 97
[2016-10-03] MEDS: buPROPion HCL 100 MG TAB PO SCH ×2 (08:34→20:18)
[2016-10-03] MEDS: LACTOBACILLUS ACIDOPHILUS TAB PO SCH ×3 (08:34→17:01)
[2016-10-03] MEDS: MULTIVITAMINS/IRON/MINERALS CHEWABLE TAB CHEW SCH (08:35)
[2016-10-03] MEDS: FAMOTIDINE 20 MG TAB PO SCH ×2 (08:35→20:18)
[2016-10-03] MEDS: CARISOPRODOL 350 MG TAB PO PRN ×2 (08:35→17:01)
[2016-10-03] MEDS: CALCIUM/VITAMIN D 250 MG/125 U TAB PO SCH ×2 (08:35→20:18)
[2016-10-03] MEDS: FERROUS SULFATE 325 MG (65 MG ELEMENTAL IRON) TAB PO SCH ×3 (08:35→17:01)
[2016-10-03] MEDS: ASCORBIC ACID 500 MG TAB PO SCH ×3 (08:35→17:01)
[2016-10-03] MEDS: METOPROLOL TARTRATE 25 MG TAB PO SCH ×2 (08:35→20:18)
[2016-10-03] MEDS: NEOMYCIN/POLYMYXIN/BACITRACIN OINT 15 GM TUBE TOPICAL SCH ×2 (08:37→20:19)
[2016-10-03 12:00] VITALS: BP 131/68; PULSE 73; RESP 17; TEMP 97.4; O2SAT 97
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
[2016-10-03 16:00] VITALS: BP 106/56; PULSE 73; RESP 16; TEMP 96.3; O2SAT 96
[2016-10-03 20:06] VITALS: BP 126/63; PULSE 74; RESP 20; TEMP 98.9; O2SAT 98
[2016-10-04 00:09] VITALS: BP 138/63; PULSE 75; RESP 20; TEMP 96.4; O2SAT 98
[2016-10-04] MEDS: CARISOPRODOL 350 MG TAB PO PRN ×3 (01:01→21:10)
[2016-10-04] MEDS: ENOXAPARIN SODIUM 60 MG/0.6 ML SYRINGE SQ SCH ×2 (05:48→16:21)
[2016-10-04 07:10] LABS: HEMATOCRIT 33.6 % (39.0-51.0); MEAN CELL VOLUME 78.7 FL (80.0-100.0); MEAN CORPUSCULAR HEMOGLOBIN 25.7 PG (27.0-34.0); MEAN CORPUSCULAR HGB CONC 32.6 % (32.0-36.0); PLATELET COUNT 189 TH/MM3 (150-450); RED BLOOD COUNT 4.27 MIL/MM3 (4.50-5.90); RED CELL DISTRIBUTION WIDTH 17.7 % (11.6-17.2); REVIEW FLAG FINAL; WHITE BLOOD COUNT 6.6 TH/MM3 (4.0-11.0)
[2016-10-04 07:15] LABS: BICARBONATE 29.6 MEQ/L (21.0-32.0); POTASSIUM 3.7 MEQ/L (3.5-5.1)
[2016-10-04 08:00] VITALS: BP 135/78; PULSE 83; RESP 18; TEMP 97.5; O2SAT 98
[2016-10-04] MEDS: MULTIVITAMINS/IRON/MINERALS CHEWABLE TAB CHEW SCH (09:00)
[2016-10-04] MEDS: CALCIUM/VITAMIN D 250 MG/125 U TAB PO SCH ×2 (09:25→21:09)
[2016-10-04] MEDS: FAMOTIDINE 20 MG TAB PO SCH ×2 (09:25→21:10)
[2016-10-04] MEDS: LACTOBACILLUS ACIDOPHILUS TAB PO SCH ×3 (09:25→16:21)
[2016-10-04] MEDS: buPROPion HCL 100 MG TAB PO SCH ×2 (09:25→21:10)
[2016-10-04] MEDS: METOPROLOL TARTRATE 25 MG TAB PO SCH ×2 (09:25→21:10)
[2016-10-04] MEDS: ASCORBIC ACID 500 MG TAB PO SCH ×3 (09:25→16:20)
[2016-10-04] MEDS: FERROUS SULFATE 325 MG (65 MG ELEMENTAL IRON) TAB PO SCH ×3 (09:25→16:21)
[2016-10-04] MEDS: NEOMYCIN/POLYMYXIN/BACITRACIN OINT 15 GM TUBE TOPICAL SCH ×2 (09:28→21:11)
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
[2016-10-04] MEDS: LORazepam 0.5 MG TAB PO PRN (10:40)
[2016-10-04 12:00] VITALS: BP 125/72; PULSE 68; RESP 22; TEMP 98.6; O2SAT 96
[2016-10-04 16:00] VITALS: BP 132/78; PULSE 88; RESP 19; TEMP 96.5; O2SAT 98
[2016-10-04 20:00] VITALS: BP 117/71; PULSE 90; RESP 20; TEMP 98.7; O2SAT 96
[2016-10-05] VITALS: BP 114/58; PULSE 75; RESP 20; TEMP 97.8; O2SAT 96
[2016-10-05] MEDS: ENOXAPARIN SODIUM 60 MG/0.6 ML SYRINGE SQ SCH ×2 (05:21→17:42)
[2016-10-05 08:00] VITALS: BP 117/59; PULSE 75; RESP 18; TEMP 98.2; O2SAT 97
[2016-10-05] MEDS: MULTIVITAMINS/IRON/MINERALS CHEWABLE TAB CHEW SCH (09:00)
[2016-10-05] MEDS: CARISOPRODOL 350 MG TAB PO PRN ×2 (09:42→17:42)
[2016-10-05] MEDS: LACTOBACILLUS ACIDOPHILUS TAB PO SCH ×3 (09:43→17:42)
[2016-10-05] MEDS: FAMOTIDINE 20 MG TAB PO SCH ×2 (09:43→21:21)
[2016-10-05] MEDS: FERROUS SULFATE 325 MG (65 MG ELEMENTAL IRON) TAB PO SCH ×3 (09:43→17:42)
[2016-10-05] MEDS: NEOMYCIN/POLYMYXIN/BACITRACIN OINT 15 GM TUBE TOPICAL SCH ×2 (09:43→21:00)
[2016-10-05] MEDS: METOPROLOL TARTRATE 25 MG TAB PO SCH ×2 (09:43→21:21)
[2016-10-05] MEDS: CALCIUM/VITAMIN D 250 MG/125 U TAB PO SCH ×2 (09:43→21:20)
[2016-10-05] MEDS: ASCORBIC ACID 500 MG TAB PO SCH ×3 (09:43→17:42)
[2016-10-05] MEDS: buPROPion HCL 100 MG TAB PO SCH ×2 (09:43→21:19)
[2016-10-05] MEDS: LORazepam 0.5 MG TAB PO PRN (09:44)
[2016-10-05 12:00] VITALS: BP 124/80; PULSE 78; RESP 19; TEMP 98.6; O2SAT 97
[2016-10-05 16:00] VITALS: BP 119/59; PULSE 82; RESP 19; TEMP 97.7; O2SAT 98
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
[2016-10-05 20:00] VITALS: BP 126/62; PULSE 83; RESP 18; TEMP 98.9; O2SAT 96
[2016-10-06] VITALS: BP 132/63; PULSE 73; RESP 18; TEMP 97.9; O2SAT 98
[2016-10-06] MEDS: CARISOPRODOL 350 MG TAB PO PRN ×3 (01:52→18:15)
[2016-10-06] MEDS: ENOXAPARIN SODIUM 60 MG/0.6 ML SYRINGE SQ SCH ×2 (04:05→17:01)
[2016-10-06 08:00] VITALS: BP 121/66; PULSE 63; RESP 20; TEMP 97; O2SAT 99
[2016-10-06] MEDS: FERROUS SULFATE 325 MG (65 MG ELEMENTAL IRON) TAB PO SCH ×3 (09:27→17:01)
[2016-10-06] MEDS: FAMOTIDINE 20 MG TAB PO SCH ×2 (09:27→20:26)
[2016-10-06] MEDS: METOPROLOL TARTRATE 25 MG TAB PO SCH ×2 (09:27→20:26)
[2016-10-06] MEDS: MULTIVITAMINS/IRON/MINERALS CHEWABLE TAB CHEW SCH (09:27)
[2016-10-06] MEDS: buPROPion HCL 100 MG TAB PO SCH ×2 (09:27→20:26)
[2016-10-06] MEDS: CALCIUM/VITAMIN D 250 MG/125 U TAB PO SCH ×2 (09:27→20:26)
[2016-10-06] MEDS: LACTOBACILLUS ACIDOPHILUS TAB PO SCH ×3 (09:27→17:01)
[2016-10-06] MEDS: NEOMYCIN/POLYMYXIN/BACITRACIN OINT 15 GM TUBE TOPICAL SCH ×2 (09:28→20:28)
[2016-10-06] MEDS: ASCORBIC ACID 500 MG TAB PO SCH ×3 (09:28→17:01)
[2016-10-06] MEDS: LORazepam 0.5 MG TAB PO PRN (10:25)
[2016-10-06 12:00] VITALS: BP 139/78; PULSE 87; RESP 19; TEMP 97.9; O2SAT 95
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
[2016-10-06 16:00] VITALS: BP 135/63; PULSE 62; RESP 18; TEMP 97.2; O2SAT 98
[2016-10-06 20:00] VITALS: BP 135/68; PULSE 74; RESP 18; TEMP 97; O2SAT 98
[2016-10-07] VITALS: BP 117/56; PULSE 72; RESP 18; TEMP 97.5; O2SAT 98
[2016-10-07] MEDS: CARISOPRODOL 350 MG TAB PO PRN ×3 (04:22→21:33)
[2016-10-07] MEDS: ENOXAPARIN SODIUM 60 MG/0.6 ML SYRINGE SQ SCH ×2 (04:23→16:48)
[2016-10-07 08:00] VITALS: BP 114/60; PULSE 59; RESP 20; TEMP 98.9; O2SAT 100
[2016-10-07] MEDS: LACTOBACILLUS ACIDOPHILUS TAB PO SCH ×3 (08:46→16:48)
[2016-10-07] MEDS: METOPROLOL TARTRATE 25 MG TAB PO SCH ×2 (08:46→21:32)
[2016-10-07] MEDS: FAMOTIDINE 20 MG TAB PO SCH ×2 (08:46→21:33)
[2016-10-07] MEDS: ASCORBIC ACID 500 MG TAB PO SCH ×3 (08:46→16:48)
[2016-10-07] MEDS: buPROPion HCL 100 MG TAB PO SCH ×2 (08:46→21:32)
[2016-10-07] MEDS: FERROUS SULFATE 325 MG (65 MG ELEMENTAL IRON) TAB PO SCH ×3 (08:46→16:48)
[2016-10-07] MEDS: CALCIUM/VITAMIN D 250 MG/125 U TAB PO SCH ×2 (08:47→21:32)
[2016-10-07] MEDS: NEOMYCIN/POLYMYXIN/BACITRACIN OINT 15 GM TUBE TOPICAL SCH ×2 (08:48→21:00)
[2016-10-07] MEDS: MULTIVITAMINS/IRON/MINERALS CHEWABLE TAB CHEW SCH (08:48)
[2016-10-07 12:00] VITALS: BP 117/59; PULSE 68; RESP 20; TEMP 97.9; O2SAT 97
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
[2016-10-07 16:00] VITALS: BP 132/60; PULSE 63; RESP 20; TEMP 98.1; O2SAT 97
[2016-10-07 20:00] VITALS: BP 139/65; PULSE 76; RESP 20; TEMP 98.2; O2SAT 99
[2016-10-08] VITALS: BP 118/60; PULSE 69; RESP 20; TEMP 97.5; O2SAT 97
[2016-10-08] MEDS: ENOXAPARIN SODIUM 60 MG/0.6 ML SYRINGE SQ SCH ×2 (05:06→17:57)
[2016-10-08 08:40] VITALS: BP 109/66; PULSE 66; RESP 19; TEMP 97.8; O2SAT 98
[2016-10-08] MEDS: ERGOCALCIFEROL (VIT D2) 50,000 UNIT CAP PO SCH (09:30)
[2016-10-08] MEDS: buPROPion HCL 100 MG TAB PO SCH ×2 (09:30→21:36)
[2016-10-08] MEDS: CALCIUM/VITAMIN D 250 MG/125 U TAB PO SCH ×2 (09:31→21:36)
[2016-10-08] MEDS: FAMOTIDINE 20 MG TAB PO SCH ×2 (09:31→21:36)
[2016-10-08] MEDS: LACTOBACILLUS ACIDOPHILUS TAB PO SCH ×3 (09:31→17:58)
[2016-10-08] MEDS: FERROUS SULFATE 325 MG (65 MG ELEMENTAL IRON) TAB PO SCH ×3 (09:31→17:58)
[2016-10-08] MEDS: METOPROLOL TARTRATE 25 MG TAB PO SCH ×2 (09:31→21:36)
[2016-10-08] MEDS: ASCORBIC ACID 500 MG TAB PO SCH ×3 (09:31→17:58)
[2016-10-08] MEDS: CARISOPRODOL 350 MG TAB PO PRN ×2 (09:32→17:58)
[2016-10-08] MEDS: MULTIVITAMINS/IRON/MINERALS CHEWABLE TAB CHEW SCH (09:35)
[2016-10-08] MEDS: NEOMYCIN/POLYMYXIN/BACITRACIN OINT 15 GM TUBE TOPICAL SCH ×2 (09:36→21:37)
[2016-10-08] MEDS: LORazepam 0.5 MG TAB PO PRN (11:13)
[2016-10-08 12:29] VITALS: BP 110/60; PULSE 65; RESP 19; TEMP 97.6; O2SAT 98
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
[2016-10-08 16:00] VITALS: BP 115/56; PULSE 70; RESP 17; TEMP 96.4; O2SAT 97
[2016-10-08 20:00] VITALS: BP 108/55; PULSE 70; RESP 18; TEMP 98.1; O2SAT 95
[2016-10-09] VITALS: BP 103/57; PULSE 65; RESP 18; TEMP 98.5; O2SAT 97
[2016-10-09] MEDS: CARISOPRODOL 350 MG TAB PO PRN ×3 (01:57→17:30)
[2016-10-09] MEDS: ENOXAPARIN SODIUM 60 MG/0.6 ML SYRINGE SQ SCH ×2 (04:32→16:19)
[2016-10-09 08:00] VITALS: BP 124/73; PULSE 93; RESP 18; TEMP 96.1; O2SAT 99
[2016-10-09] MEDS: NEOMYCIN/POLYMYXIN/BACITRACIN OINT 15 GM TUBE TOPICAL SCH ×2 (09:00→22:01)
[2016-10-09] MEDS: MULTIVITAMINS/IRON/MINERALS CHEWABLE TAB CHEW SCH (09:00)
[2016-10-09] MEDS: ASCORBIC ACID 500 MG TAB PO SCH ×3 (09:46→17:49)
[2016-10-09] MEDS: LACTOBACILLUS ACIDOPHILUS TAB PO SCH ×3 (09:46→17:49)
[2016-10-09] MEDS: FERROUS SULFATE 325 MG (65 MG ELEMENTAL IRON) TAB PO SCH ×3 (09:46→17:49)
[2016-10-09] MEDS: CALCIUM/VITAMIN D 250 MG/125 U TAB PO SCH ×2 (09:46→21:59)
[2016-10-09] MEDS: METOPROLOL TARTRATE 25 MG TAB PO SCH ×2 (09:46→21:59)
[2016-10-09] MEDS: FAMOTIDINE 20 MG TAB PO SCH ×2 (09:47→22:00)
[2016-10-09] MEDS: buPROPion HCL 100 MG TAB PO SCH ×2 (09:47→21:59)
[2016-10-09] MEDS: LORazepam 0.5 MG TAB PO PRN (09:53)
[2016-10-09 12:00] VITALS: BP 120/70; PULSE 87; RESP 17; TEMP 97.8; O2SAT 97
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
[2016-10-09 16:00] VITALS: BP 129/61; PULSE 76; RESP 17; TEMP 97.6; O2SAT 96
[2016-10-09 20:00] VITALS: BP 109/65; PULSE 67; RESP 17; TEMP 97.5; O2SAT 98
[2016-10-10] VITALS: BP 123/68; PULSE 71; RESP 17; TEMP 98.6; O2SAT 98
[2016-10-10] MEDS: CARISOPRODOL 350 MG TAB PO PRN ×3 (01:53→17:58)
[2016-10-10] MEDS: ENOXAPARIN SODIUM 60 MG/0.6 ML SYRINGE SQ SCH ×2 (04:28→15:59)
[2016-10-10 08:00] VITALS: BP 113/76; PULSE 68; RESP 16; TEMP 96.3; O2SAT 99
[2016-10-10] MEDS: MULTIVITAMINS/IRON/MINERALS CHEWABLE TAB CHEW SCH (09:00)
[2016-10-10] MEDS: buPROPion HCL 100 MG TAB PO SCH ×2 (09:15→20:57)
[2016-10-10] MEDS: ASCORBIC ACID 500 MG TAB PO SCH ×3 (09:15→17:55)
[2016-10-10] MEDS: LACTOBACILLUS ACIDOPHILUS TAB PO SCH ×3 (09:15→17:55)
[2016-10-10] MEDS: CALCIUM/VITAMIN D 250 MG/125 U TAB PO SCH ×2 (09:15→20:57)
[2016-10-10] MEDS: FERROUS SULFATE 325 MG (65 MG ELEMENTAL IRON) TAB PO SCH ×3 (09:16→17:55)
[2016-10-10] MEDS: NEOMYCIN/POLYMYXIN/BACITRACIN OINT 15 GM TUBE TOPICAL SCH ×2 (09:16→20:58)
[2016-10-10] MEDS: FAMOTIDINE 20 MG TAB PO SCH ×2 (09:16→20:57)
[2016-10-10] MEDS: METOPROLOL TARTRATE 25 MG TAB PO SCH ×2 (09:16→20:57)
[2016-10-10 12:00] VITALS: BP 111/68; PULSE 72; RESP 16; TEMP 97; O2SAT 98
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
[2016-10-10] MEDS: SULFAMETHOXAZOLE-TRIMETHOPRIM DS 800-160 MG TAB PO SCH ×2 (15:55→20:57)
[2016-10-10 16:00] VITALS: BP 120/70; PULSE 80; RESP 18; TEMP 98; O2SAT 97
--- NOTE | 2016-10-10 18:12 | RADRPT ---
EXAM DATE/TIME: 10/10/2016 16:49 1[facility] COMPARISON: US LEG LEFT SOFT TISSUE, September 05, 2016, 12:59. INDICATIONS : Left leg abscess. MEDICAL HISTORY : Bilateral lower extremity venous stasis. Diarrhea. Nausea. Vomiting. Back pain. Joint pain. Subs tance use. Depression. Methicillin-resistant staph aureus. Extensor tendon laceration. Left distal femur fracture. Tachycardia. Anemia. T9 vertebral fracture. SURGICAL HISTORY : None. ENCOUNTER: Subsequent ACUITY: 1 month PAIN SCORE: 0/10 LOCATION: Left leg. AREA EVALUATED: Left upper thigh. FINDINGS: A targeted ultrasound study was performed in the left upper thigh and demonstrates diffuse edema infi ltrating throughout the soft tissues. There is no distinct focal mass or distinct abscess. CONCLUSION: Diffuse soft tissue edema with no distinct mass or abscess. Davie Avila MD on October 10, 2016 at 18:09 Board Certified Radiologist. This report was verified electronically.
[2016-10-10 20:00] VITALS: BP 123/59; PULSE 78; RESP 18; TEMP 97.3; O2SAT 96
[2016-10-11] VITALS: BP 100/58; PULSE 70; RESP 18; TEMP 98.1; O2SAT 98
[2016-10-11] MEDS: CARISOPRODOL 350 MG TAB PO PRN ×3 (01:59→21:58)
[2016-10-11] MEDS: ENOXAPARIN SODIUM 60 MG/0.6 ML SYRINGE SQ SCH ×2 (05:34→17:13)
[2016-10-11 08:00] VITALS: BP 102/56; PULSE 65; RESP 16; TEMP 97.3; O2SAT 96
[2016-10-11] MEDS: LACTOBACILLUS ACIDOPHILUS TAB PO SCH ×3 (09:46→17:14)
[2016-10-11] MEDS: SULFAMETHOXAZOLE-TRIMETHOPRIM DS 800-160 MG TAB PO SCH ×2 (09:46→21:58)
[2016-10-11] MEDS: FAMOTIDINE 20 MG TAB PO SCH ×2 (09:47→21:58)
[2016-10-11] MEDS: CALCIUM/VITAMIN D 250 MG/125 U TAB PO SCH ×2 (09:47→21:59)
[2016-10-11] MEDS: METOPROLOL TARTRATE 25 MG TAB PO SCH ×2 (09:47→21:58)
[2016-10-11] MEDS: ASCORBIC ACID 500 MG TAB PO SCH ×3 (09:47→17:14)
[2016-10-11] MEDS: buPROPion HCL 100 MG TAB PO SCH ×2 (09:47→21:58)
[2016-10-11] MEDS: FERROUS SULFATE 325 MG (65 MG ELEMENTAL IRON) TAB PO SCH ×3 (09:47→17:14)
[2016-10-11] MEDS: MULTIVITAMINS/IRON/MINERALS CHEWABLE TAB CHEW SCH (09:48)
[2016-10-11] MEDS: LORazepam 0.5 MG TAB PO PRN (10:20)
[2016-10-11 12:00] VITALS: BP 110/63; PULSE 73; RESP 16; TEMP 97.5; O2SAT 96
--- NOTE | 2016-10-11 13:11 | PD.WCN.NOT ---
Wound Consult Description: Consult placed for Wound management of left inner upper thigh and left lower leg per ART Pearson Communicated with: PEARL Aguirre Patient Recommendation: Cleanse left anterior lower leg with NS and gauze every other day. Apply single layer Xeroform to wound bed. Secure with dry cover. Cleanse left medial upper thigh with body wash/soap BID and leave open to air. Additional Information: Patient seen on for wound assessment of left anterior lower leg that presents as partial thickness skinloss of unknown etiology measuring ~2cm x ~ 6cm x sloping depth ~0.5cm with red moist, non granulating tissue without drainage, and yellow moist scaling/flaking skin without odor. Periwound is dry and flaking, otherwise unremarkable. Single layer Xeroform was applied to moist open partial thickness skinloss area and covered with dry bordered gauze after cleansing with NS and gauze. Left medial upper thigh was visualized and noted to be bright red, firm, edematous, moist with yellow flaking scales. There are no open wounds visualized, no active drainage, and no odor noted. This area measures ~10cm x ~16cm and was cleansed with NS and gauze and left open to air with an ultrasorb underneath leg for moisture. Ostomy Date of Surgery: Oct 11, 2015 Sherrie Quesada [facility] Oct 11, 2016 13:11
--- NOTE | 2016-10-11 13:46 | RADRPT ---
EXAM DATE/TIME: 10/11/2016 12:55 [facility] COMPARISON: US LEG LEFT VENOUS DOPPLER, November 20, 2013, 13:52. INDICATIONS : Left leg redness and swelling. MEDICAL HISTORY : Abdominal pain. BLE venous stasis. Chronic back pain. Depression. Substance use. MRSA. SURGICAL HISTORY : None. ENCOUNTER: Initial ACUITY: 3 days PAIN SCORE: 3/10 LOCATION: Left leg. TECHNIQUE: Venous ultrasound of the leg was performed from the inguinal ligament to the proximal calf. Real-jhon e, color Doppler and spectral tracing, compression and augmentation techniques were used. FINDINGS: The left lower leg deep venous system appears patent with color flow. No leg veins could not be well compressed due to the patient's body habitus and pain. No echogenic clot is seen in the lumen of the common femoral, femoral, popliteal, and posterior tibial veins. There is a normal response of the ve nous system to proximal and distal augmentation and respiration. CONCLUSION: No evidence of deep venous thrombosis. Davie Avila MD on October 11, 2016 at 13:43 Board Certified Radiologist. This report was verified electronically.
[2016-10-11 16:00] VITALS: BP 126/64; PULSE 72; RESP 16; TEMP 97.4; O2SAT 97
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
[2016-10-11 16:36] LABS: AUTOMATED NEUTROPHIL # 3.7 TH/MM3 (1.8-7.7); BASOPHIL % 0.4 % (0.0-2.0); EOSINOPHIL # 0.2 TH/MM3 (0-0.4); EOSINOPHIL % 4.1 % (0.0-4.0); HEMATOCRIT 35.7 % (39.0-51.0); HEMO FLAGS DIFF FINAL; LYMPH % 21.1 % (9.0-44.0); LYMPHOCYTE # 1.2 TH/MM3 (1.0-4.8); MEAN CELL VOLUME 80.1 FL (80.0-100.0); MEAN CORPUSCULAR HGB CONC 32.5 % (32.0-36.0); MONO % 7.4 % (0.0-8.0); PLATELET COUNT 184 TH/MM3 (150-450); RED BLOOD COUNT 4.46 MIL/MM3 (4.50-5.90); RED CELL DISTRIBUTION WIDTH 17.6 % (11.6-17.2); WHITE BLOOD COUNT 5.5 TH/MM3 (4.0-11.0)
[2016-10-11 16:59] LABS: BICARBONATE 29.1 MEQ/L (21.0-32.0); MAGNESIUM 2.1 MG/DL (1.5-2.5)
[2016-10-11 20:00] VITALS: BP 114/68; PULSE 73; RESP 18; TEMP 97.4; O2SAT 97
[2016-10-11] MEDS: NEOMYCIN/POLYMYXIN/BACITRACIN OINT 15 GM TUBE TOPICAL SCH (22:01)
[2016-10-12] VITALS: BP 113/66; PULSE 81; RESP 18; TEMP 98.1; O2SAT 97
[2016-10-12] MEDS: ENOXAPARIN SODIUM 60 MG/0.6 ML SYRINGE SQ SCH ×2 (04:03→18:25)
[2016-10-12 07:20] LABS: ANION GAP 6 MEQ/L (5-15); AST (GOT) 10 U/L (15-37); BICARBONATE 27.6 MEQ/L (21.0-32.0); BLOOD UREA NITROGEN 14 MG/DL (7-18); CHLORIDE 104 MEQ/L (98-107); GLOMERULAR FILTRATION RATE 64 ML/MIN (>89); POTASSIUM 3.6 MEQ/L (3.5-5.1); SODIUM (NA) 138 MEQ/L (136-145)
[2016-10-12 07:21] LABS: ALT (GPT) 14 U/L (12-78)
[2016-10-12 07:23] LABS: ALKALINE PHOSPHATASE 84 U/L (45-117); TOTAL BILIRUBIN ADULT 0.3 MG/DL (0.2-1.0)
[2016-10-12 07:25] LABS: AUTOMATED NEUTROPHIL # 3.6 TH/MM3 (1.8-7.7); BASOPHIL % 0.7 % (0.0-2.0); EOSINOPHIL # 0.3 TH/MM3 (0-0.4); EOSINOPHIL % 5.1 % (0.0-4.0); HEMATOCRIT 36.3 % (39.0-51.0); HEMO FLAGS DIFF FINAL; LYMPH % 25.8 % (9.0-44.0); LYMPHOCYTE # 1.5 TH/MM3 (1.0-4.8); MEAN CELL VOLUME 78.6 FL (80.0-100.0); MEAN CORPUSCULAR HGB CONC 33.1 % (32.0-36.0); MONO % 6.1 % (0.0-8.0); NEUT % 62.3 % (16.0-70.0); PLATELET COUNT 187 TH/MM3 (150-450); RED BLOOD COUNT 4.62 MIL/MM3 (4.50-5.90); WHITE BLOOD COUNT 5.8 TH/MM3 (4.0-11.0)
[2016-10-12] MEDS: MULTIVITAMINS/IRON/MINERALS CHEWABLE TAB CHEW SCH (10:00)
[2016-10-12] MEDS: METOPROLOL TARTRATE 25 MG TAB PO SCH ×2 (10:09→21:00)
[2016-10-12] MEDS: ASCORBIC ACID 500 MG TAB PO SCH ×3 (10:09→18:24)
[2016-10-12] MEDS: buPROPion HCL 100 MG TAB PO SCH ×2 (10:10→21:52)
[2016-10-12] MEDS: SULFAMETHOXAZOLE-TRIMETHOPRIM DS 800-160 MG TAB PO SCH (10:10)
[2016-10-12] MEDS: LACTOBACILLUS ACIDOPHILUS TAB PO SCH ×3 (10:10→18:24)
[2016-10-12] MEDS: CALCIUM/VITAMIN D 250 MG/125 U TAB PO SCH ×2 (10:10→21:52)
[2016-10-12] MEDS: LORazepam 0.5 MG TAB PO PRN (10:11)
[2016-10-12] MEDS: FERROUS SULFATE 325 MG (65 MG ELEMENTAL IRON) TAB PO SCH ×3 (10:11→18:24)
[2016-10-12] MEDS: FAMOTIDINE 20 MG TAB PO SCH ×2 (10:14→21:52)
[2016-10-12] MEDS: NEOMYCIN/POLYMYXIN/BACITRACIN OINT 15 GM TUBE TOPICAL SCH ×2 (10:14→21:00)
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
[2016-10-12] MEDS: CARISOPRODOL 350 MG TAB PO PRN (18:30)
[2016-10-12 20:00] VITALS: BP 106/55; PULSE 71; RESP 18; TEMP 97.6; O2SAT 98
[2016-10-13] VITALS: BP 107/50; PULSE 65; RESP 18; TEMP 96.3; O2SAT 96
[2016-10-13] MEDS: ENOXAPARIN SODIUM 60 MG/0.6 ML SYRINGE SQ SCH ×2 (04:30→16:20)
[2016-10-13] MEDS: CARISOPRODOL 350 MG TAB PO PRN ×3 (04:31→21:19)
[2016-10-13 08:00] VITALS: BP 121/71; PULSE 70; RESP 18; TEMP 96; O2SAT 100
[2016-10-13] MEDS: buPROPion HCL 100 MG TAB PO SCH ×2 (08:23→21:18)
[2016-10-13] MEDS: LACTOBACILLUS ACIDOPHILUS TAB PO SCH ×3 (08:23→16:21)
[2016-10-13] MEDS: CALCIUM/VITAMIN D 250 MG/125 U TAB PO SCH ×2 (08:23→21:18)
[2016-10-13] MEDS: FERROUS SULFATE 325 MG (65 MG ELEMENTAL IRON) TAB PO SCH ×3 (08:23→16:21)
[2016-10-13] MEDS: FAMOTIDINE 20 MG TAB PO SCH ×2 (08:23→21:18)
[2016-10-13] MEDS: METOPROLOL TARTRATE 25 MG TAB PO SCH ×2 (08:23→21:00)
[2016-10-13] MEDS: ASCORBIC ACID 500 MG TAB PO SCH ×3 (08:24→16:21)
[2016-10-13] MEDS: NEOMYCIN/POLYMYXIN/BACITRACIN OINT 15 GM TUBE TOPICAL SCH ×2 (08:24→21:00)
[2016-10-13] MEDS: MULTIVITAMINS/IRON/MINERALS CHEWABLE TAB CHEW SCH (08:24)
[2016-10-13] MEDS: LORazepam 0.5 MG TAB PO PRN (10:49)
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
[2016-10-13 12:00] VITALS: BP 125/68; PULSE 75; RESP 19; TEMP 96.6; O2SAT 98
[2016-10-13 16:00] VITALS: BP 118/68; PULSE 83; RESP 20; TEMP 98.5; O2SAT 99
[2016-10-13 20:00] VITALS: BP 119/56; PULSE 81; RESP 18; TEMP 98.9; O2SAT 100
[2016-10-14] VITALS: BP 132/69; PULSE 94; RESP 18; TEMP 96.8; O2SAT 97
[2016-10-14] MEDS: ENOXAPARIN SODIUM 60 MG/0.6 ML SYRINGE SQ SCH ×2 (04:58→17:22)
[2016-10-14] MEDS: CARISOPRODOL 350 MG TAB PO PRN ×2 (04:58→13:51)
[2016-10-14] MEDS: FERROUS SULFATE 325 MG (65 MG ELEMENTAL IRON) TAB PO SCH ×3 (07:43→17:21)
[2016-10-14] MEDS: MULTIVITAMINS/IRON/MINERALS CHEWABLE TAB CHEW SCH (07:43)
[2016-10-14] MEDS: buPROPion HCL 100 MG TAB PO SCH ×2 (07:43→20:25)
[2016-10-14] MEDS: ASCORBIC ACID 500 MG TAB PO SCH ×3 (07:44→17:21)
[2016-10-14] MEDS: LACTOBACILLUS ACIDOPHILUS TAB PO SCH ×3 (07:44→17:21)
[2016-10-14] MEDS: METOPROLOL TARTRATE 25 MG TAB PO SCH ×2 (07:44→20:25)
[2016-10-14] MEDS: FAMOTIDINE 20 MG TAB PO SCH ×2 (07:44→20:25)
[2016-10-14] MEDS: NEOMYCIN/POLYMYXIN/BACITRACIN OINT 15 GM TUBE TOPICAL SCH ×2 (07:44→20:25)
[2016-10-14] MEDS: CALCIUM/VITAMIN D 250 MG/125 U TAB PO SCH ×2 (07:44→20:25)
[2016-10-14 08:00] VITALS: BP 110/62; PULSE 71; RESP 18; TEMP 96.1; O2SAT 97
[2016-10-14 12:00] VITALS: BP 127/67; PULSE 78; RESP 19; TEMP 97.2; O2SAT 98
--- NOTE | 2016-10-14 14:33 | HHI.PR ---
Objective Result Diagram: 10/12/16 0504 10/12/16 0504 Date of Insertion: Sep 14, 2016 A/P Problem List: (1) T9 vertebral fracture ICD Code: S22.079A - Unspecified fracture of T9-T10 vertebra, initial encounter for closed fracture Status: Acute (2) Iron (Fe) deficiency anemia ICD Code: D50.9 - Iron deficiency anemia, unspecified Status: Acute Problem Qualifiers (1) T9 vertebral fracture: (2) Iron (Fe) deficiency anemia: Faith Pearson Oct 14, 2016 14:33
[2016-10-14 16:00] VITALS: BP 129/79; PULSE 89; RESP 20; TEMP 96.5; O2SAT 98
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
[2016-10-14 20:00] VITALS: BP 122/70; PULSE 82; RESP 18; TEMP 97.7; O2SAT 97
[2016-10-15] VITALS: BP 115/69; PULSE 83; RESP 18; TEMP 96.3; O2SAT 99
[2016-10-15] MEDS: CARISOPRODOL 350 MG TAB PO PRN ×3 (00:43→16:53)
[2016-10-15] MEDS: ENOXAPARIN SODIUM 60 MG/0.6 ML SYRINGE SQ SCH ×2 (05:36→16:04)
[2016-10-15 08:00] VITALS: BP 119/69; PULSE 63; RESP 20; TEMP 97.9; O2SAT 99
[2016-10-15] MEDS: MULTIVITAMINS/IRON/MINERALS CHEWABLE TAB CHEW SCH (09:00)
[2016-10-15] MEDS: ERGOCALCIFEROL (VIT D2) 50,000 UNIT CAP PO SCH (09:07)
[2016-10-15] MEDS: LACTOBACILLUS ACIDOPHILUS TAB PO SCH ×3 (09:07→16:53)
[2016-10-15] MEDS: ASCORBIC ACID 500 MG TAB PO SCH ×3 (09:07→16:53)
[2016-10-15] MEDS: FERROUS SULFATE 325 MG (65 MG ELEMENTAL IRON) TAB PO SCH ×3 (09:07→16:54)
[2016-10-15] MEDS: METOPROLOL TARTRATE 25 MG TAB PO SCH ×2 (09:08→20:41)
[2016-10-15] MEDS: buPROPion HCL 100 MG TAB PO SCH ×2 (09:08→20:41)
[2016-10-15] MEDS: FAMOTIDINE 20 MG TAB PO SCH ×2 (09:08→20:41)
[2016-10-15] MEDS: CALCIUM/VITAMIN D 250 MG/125 U TAB PO SCH ×2 (09:08→20:41)
[2016-10-15] MEDS: NEOMYCIN/POLYMYXIN/BACITRACIN OINT 15 GM TUBE TOPICAL SCH ×2 (09:09→20:42)
[2016-10-15] MEDS: LORazepam 0.5 MG TAB PO PRN (10:23)
[2016-10-15 12:00] VITALS: BP 117/68; PULSE 78; RESP 19; TEMP 97; O2SAT 98
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
[2016-10-15 16:00] VITALS: BP 116/59; PULSE 70; RESP 19; TEMP 97.3; O2SAT 99
[2016-10-15 20:00] VITALS: BP 123/73; PULSE 79; RESP 20; TEMP 98.9; O2SAT 97
[2016-10-15] MEDS: MUPIROCIN 2% OINT 22 GM TUBE TOPICAL SCH (20:42)
[2016-10-16] VITALS: BP 121/70; PULSE 74; RESP 20; TEMP 98.9; O2SAT 99
[2016-10-16] MEDS: CARISOPRODOL 350 MG TAB PO PRN ×3 (01:05→17:18)
[2016-10-16] MEDS: ENOXAPARIN SODIUM 60 MG/0.6 ML SYRINGE SQ SCH ×2 (04:38→15:58)
[2016-10-16 08:00] VITALS: BP 118/59; PULSE 70; RESP 18; TEMP 96.6; O2SAT 99
[2016-10-16] MEDS: LACTOBACILLUS ACIDOPHILUS TAB PO SCH ×3 (08:26→17:18)
[2016-10-16] MEDS: buPROPion HCL 100 MG TAB PO SCH ×2 (08:26→21:43)
[2016-10-16] MEDS: FAMOTIDINE 20 MG TAB PO SCH ×2 (08:26→21:42)
[2016-10-16] MEDS: ASCORBIC ACID 500 MG TAB PO SCH ×3 (08:26→17:18)
[2016-10-16] MEDS: CALCIUM/VITAMIN D 250 MG/125 U TAB PO SCH ×2 (08:26→21:43)
[2016-10-16] MEDS: NEOMYCIN/POLYMYXIN/BACITRACIN OINT 15 GM TUBE TOPICAL SCH ×2 (08:27→21:43)
[2016-10-16] MEDS: FERROUS SULFATE 325 MG (65 MG ELEMENTAL IRON) TAB PO SCH ×3 (08:27→17:18)
[2016-10-16] MEDS: MULTIVITAMINS/IRON/MINERALS CHEWABLE TAB CHEW SCH (08:27)
[2016-10-16] MEDS: METOPROLOL TARTRATE 25 MG TAB PO SCH ×2 (08:27→21:43)
[2016-10-16] MEDS: MUPIROCIN 2% OINT 22 GM TUBE TOPICAL SCH ×2 (08:27→21:43)
[2016-10-16] MEDS: NYSTATIN 100,000 U/GM OINT 15 GM TUBE TOPICAL SCH ×3 (10:00→21:43)
[2016-10-16] MEDS: LORazepam 0.5 MG TAB PO PRN (10:11)
[2016-10-16 12:00] VITALS: BP 110/60; PULSE 78; RESP 18; TEMP 97.5; O2SAT 99
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
[2016-10-16 16:00] VITALS: BP 108/56; PULSE 74; RESP 16; TEMP 96.5; O2SAT 97
[2016-10-16] MEDS: HYDROCORTISONE 0.5% CREAM 30 GM TOPICAL SCH (17:18)
[2016-10-16 20:00] VITALS: BP 120/58; PULSE 80; RESP 16; TEMP 99.4; O2SAT 97
[2016-10-17] MEDS: HYDROCORTISONE 0.5% CREAM 30 GM TOPICAL SCH ×4 (00:19→22:20)
[2016-10-17] MEDS: CARISOPRODOL 350 MG TAB PO PRN ×3 (03:45→18:35)
[2016-10-17] MEDS: ENOXAPARIN SODIUM 60 MG/0.6 ML SYRINGE SQ SCH ×2 (03:45→16:11)
[2016-10-17 08:00] VITALS: BP 106/57; PULSE 80; RESP 16; TEMP 97.1; O2SAT 97
[2016-10-17] MEDS: LACTOBACILLUS ACIDOPHILUS TAB PO SCH ×3 (08:14→16:11)
[2016-10-17] MEDS: METOPROLOL TARTRATE 25 MG TAB PO SCH ×2 (08:14→22:18)
[2016-10-17] MEDS: NEOMYCIN/POLYMYXIN/BACITRACIN OINT 15 GM TUBE TOPICAL SCH ×2 (08:15→22:20)
[2016-10-17] MEDS: FERROUS SULFATE 325 MG (65 MG ELEMENTAL IRON) TAB PO SCH ×3 (08:15→16:11)
[2016-10-17] MEDS: ASCORBIC ACID 500 MG TAB PO SCH ×3 (08:15→16:11)
[2016-10-17] MEDS: CALCIUM/VITAMIN D 250 MG/125 U TAB PO SCH ×2 (08:15→22:18)
[2016-10-17] MEDS: MULTIVITAMINS/IRON/MINERALS CHEWABLE TAB CHEW SCH (08:15)
[2016-10-17] MEDS: FAMOTIDINE 20 MG TAB PO SCH ×2 (08:15→22:18)
[2016-10-17] MEDS: buPROPion HCL 100 MG TAB PO SCH ×2 (08:15→22:18)
[2016-10-17] MEDS: NYSTATIN 100,000 U/GM OINT 15 GM TUBE TOPICAL SCH ×2 (08:15→22:20)
[2016-10-17] MEDS: MUPIROCIN 2% OINT 22 GM TUBE TOPICAL SCH ×2 (08:16→21:00)
[2016-10-17] MEDS: LORazepam 0.5 MG TAB PO PRN (10:06)
[2016-10-17 12:00] VITALS: BP 112/63; PULSE 73; RESP 16; TEMP 96.5; O2SAT 97
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
[2016-10-17 16:00] VITALS: BP 112/56; PULSE 70; RESP 16; TEMP 96.4; O2SAT 97
[2016-10-17 20:00] VITALS: BP 126/60; PULSE 72; RESP 18; TEMP 98.2; O2SAT 98
[2016-10-18] VITALS: BP 121/58; PULSE 81; RESP 16; TEMP 98.4; O2SAT 98
[2016-10-18] MEDS: ENOXAPARIN SODIUM 60 MG/0.6 ML SYRINGE SQ SCH ×2 (03:56→17:06)
[2016-10-18 08:00] VITALS: BP 105/59; PULSE 65; RESP 19; TEMP 96.5; O2SAT 98
[2016-10-18] MEDS: HYDROCORTISONE 0.5% CREAM 30 GM TOPICAL SCH ×3 (08:00→21:34)
[2016-10-18] MEDS: METOPROLOL TARTRATE 25 MG TAB PO SCH ×2 (09:00→21:29)
[2016-10-18] MEDS: MULTIVITAMINS/IRON/MINERALS CHEWABLE TAB CHEW SCH (09:00)
[2016-10-18] MEDS: MUPIROCIN 2% OINT 22 GM TUBE TOPICAL SCH ×2 (09:00→21:35)
[2016-10-18] MEDS: CARISOPRODOL 350 MG TAB PO PRN ×2 (09:32→17:06)
[2016-10-18] MEDS: ASCORBIC ACID 500 MG TAB PO SCH ×3 (09:32→17:12)
[2016-10-18] MEDS: CALCIUM/VITAMIN D 250 MG/125 U TAB PO SCH ×2 (09:32→21:29)
[2016-10-18] MEDS: buPROPion HCL 100 MG TAB PO SCH ×2 (09:32→21:30)
[2016-10-18] MEDS: FERROUS SULFATE 325 MG (65 MG ELEMENTAL IRON) TAB PO SCH ×3 (09:32→17:06)
[2016-10-18] MEDS: FAMOTIDINE 20 MG TAB PO SCH ×2 (09:32→21:29)
[2016-10-18] MEDS: LACTOBACILLUS ACIDOPHILUS TAB PO SCH ×3 (09:32→17:06)
[2016-10-18] MEDS: NEOMYCIN/POLYMYXIN/BACITRACIN OINT 15 GM TUBE TOPICAL SCH ×2 (09:37→21:33)
[2016-10-18] MEDS: NYSTATIN 100,000 U/GM OINT 15 GM TUBE TOPICAL SCH ×2 (09:37→21:32)
[2016-10-18] MEDS: LORazepam 0.5 MG TAB PO PRN (10:35)
[2016-10-18 12:00] VITALS: BP 111/65; PULSE 68; RESP 20; TEMP 96.6; O2SAT 98
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
[2016-10-18 16:00] VITALS: BP 109/63; PULSE 73; RESP 19; TEMP 96.9; O2SAT 98
[2016-10-18 20:00] VITALS: BP 129/59; PULSE 81; RESP 16; TEMP 98.1; O2SAT 98
[2016-10-19] VITALS: BP 112/54; PULSE 69; RESP 16; TEMP 96.8; O2SAT 99
[2016-10-19] MEDS: CARISOPRODOL 350 MG TAB PO PRN ×3 (01:49→17:47)
[2016-10-19] MEDS: ENOXAPARIN SODIUM 60 MG/0.6 ML SYRINGE SQ SCH ×2 (04:36→17:48)
[2016-10-19 06:09] LABS: HEMATOCRIT 33.8 % (39.0-51.0); MEAN CELL VOLUME 79.5 FL (80.0-100.0); MEAN CORPUSCULAR HEMOGLOBIN 26.1 PG (27.0-34.0); MEAN CORPUSCULAR HGB CONC 32.9 % (32.0-36.0); PLATELET COUNT 167 TH/MM3 (150-450); RED BLOOD COUNT 4.26 MIL/MM3 (4.50-5.90); RED CELL DISTRIBUTION WIDTH 18.1 % (11.6-17.2); REVIEW FLAG FINAL; WHITE BLOOD COUNT 6.3 TH/MM3 (4.0-11.0)
[2016-10-19 06:29] LABS: ANION GAP 8 MEQ/L (5-15); BICARBONATE 27.2 MEQ/L (21.0-32.0); BLOOD UREA NITROGEN 12 MG/DL (7-18); CHLORIDE 105 MEQ/L (98-107); GLOMERULAR FILTRATION RATE 81 ML/MIN (>89); POTASSIUM 3.7 MEQ/L (3.5-5.1); SODIUM (NA) 140 MEQ/L (136-145); TRANSFERRIN IRON PROFILE 155 MG/DL (200-360)
[2016-10-19 08:00] VITALS: BP 117/56; PULSE 73; RESP 19; TEMP 97.9; O2SAT 97
[2016-10-19] MEDS: HYDROCORTISONE 0.5% CREAM 30 GM TOPICAL SCH ×2 (08:00→16:00)
[2016-10-19] MEDS: NYSTATIN 100,000 U/GM OINT 15 GM TUBE TOPICAL SCH ×2 (09:00→21:00)
[2016-10-19] MEDS: NEOMYCIN/POLYMYXIN/BACITRACIN OINT 15 GM TUBE TOPICAL SCH ×2 (09:00→21:00)
[2016-10-19] MEDS: MUPIROCIN 2% OINT 22 GM TUBE TOPICAL SCH ×2 (09:00→21:00)
[2016-10-19] MEDS: LACTOBACILLUS ACIDOPHILUS TAB PO SCH ×3 (09:52→17:47)
[2016-10-19] MEDS: FAMOTIDINE 20 MG TAB PO SCH ×2 (09:53→21:40)
[2016-10-19] MEDS: LORazepam 0.5 MG TAB PO PRN (09:53)
[2016-10-19] MEDS: FERROUS SULFATE 325 MG (65 MG ELEMENTAL IRON) TAB PO SCH ×3 (09:53→17:47)
[2016-10-19] MEDS: ASCORBIC ACID 500 MG TAB PO SCH ×3 (09:53→17:47)
[2016-10-19] MEDS: buPROPion HCL 100 MG TAB PO SCH ×2 (09:53→21:40)
[2016-10-19] MEDS: CALCIUM/VITAMIN D 250 MG/125 U TAB PO SCH ×2 (09:53→21:40)
[2016-10-19] MEDS: MULTIVITAMINS/IRON/MINERALS CHEWABLE TAB CHEW SCH (09:54)
[2016-10-19] MEDS: METOPROLOL TARTRATE 25 MG TAB PO SCH ×2 (09:55→21:00)
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
[2016-10-19 12:00] VITALS: BP 123/68; PULSE 77; RESP 19; TEMP 97.5; O2SAT 98
[2016-10-19 16:00] VITALS: BP 123/75; PULSE 82; RESP 20; TEMP 96.8; O2SAT 98
[2016-10-19 20:00] VITALS: BP 111/56; PULSE 79; RESP 16; TEMP 97.7; O2SAT 96
[2016-10-20] VITALS: BP 127/61; PULSE 83; RESP 16; TEMP 98.5; O2SAT 98
[2016-10-20] MEDS: CARISOPRODOL 350 MG TAB PO PRN ×3 (01:43→18:39)
[2016-10-20] MEDS: HYDROCORTISONE 0.5% CREAM 30 GM TOPICAL SCH ×4 (01:48→23:00)
[2016-10-20] MEDS: ENOXAPARIN SODIUM 60 MG/0.6 ML SYRINGE SQ SCH ×2 (04:08→17:13)
[2016-10-20 08:00] VITALS: BP 106/58; PULSE 86; RESP 14; TEMP 97; O2SAT 94
[2016-10-20] MEDS: buPROPion HCL 100 MG TAB PO SCH ×2 (08:54→19:41)
[2016-10-20] MEDS: LOPERAMIDE HCL SOLN 2 MG/10 ML UDC PO PRN ×2 (08:54→09:00)
[2016-10-20] MEDS: LACTOBACILLUS ACIDOPHILUS TAB PO SCH ×3 (08:54→17:13)
[2016-10-20] MEDS: ASCORBIC ACID 500 MG TAB PO SCH ×3 (08:55→17:13)
[2016-10-20] MEDS: CALCIUM/VITAMIN D 250 MG/125 U TAB PO SCH ×2 (08:55→19:41)
[2016-10-20] MEDS: FERROUS SULFATE 325 MG (65 MG ELEMENTAL IRON) TAB PO SCH ×3 (08:55→17:13)
[2016-10-20] MEDS: FAMOTIDINE 20 MG TAB PO SCH ×2 (08:55→19:41)
[2016-10-20] MEDS: METOPROLOL TARTRATE 25 MG TAB PO SCH ×3 (08:56→19:41)
[2016-10-20] MEDS: MUPIROCIN 2% OINT 22 GM TUBE TOPICAL SCH ×2 (09:00→19:44)
[2016-10-20] MEDS: MULTIVITAMINS/IRON/MINERALS CHEWABLE TAB CHEW SCH (09:00)
[2016-10-20] MEDS: NYSTATIN 100,000 U/GM OINT 15 GM TUBE TOPICAL SCH ×2 (09:04→19:43)
[2016-10-20] MEDS: NEOMYCIN/POLYMYXIN/BACITRACIN OINT 15 GM TUBE TOPICAL SCH ×2 (09:05→19:45)
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
[2016-10-20 12:00] VITALS: BP 126/68; PULSE 82; RESP 15; TEMP 97.3; O2SAT 97
[2016-10-20 16:00] VITALS: BP 117/71; PULSE 108; RESP 20; TEMP 95.5; O2SAT 98
[2016-10-20 20:00] VITALS: BP 120/71; PULSE 96; RESP 18; TEMP 97.1; O2SAT 96
[2016-10-21] VITALS: BP 121/61; PULSE 72; RESP 18; TEMP 96.6; O2SAT 96
[2016-10-21] MEDS: CARISOPRODOL 350 MG TAB PO PRN ×3 (02:42→21:36)
[2016-10-21] MEDS: ENOXAPARIN SODIUM 60 MG/0.6 ML SYRINGE SQ SCH ×2 (02:45→16:54)
[2016-10-21 08:00] VITALS: BP 114/64; PULSE 67; RESP 14; TEMP 96.7; O2SAT 98
[2016-10-21] MEDS: HYDROCORTISONE 0.5% CREAM 30 GM TOPICAL SCH ×3 (08:00→23:59)
[2016-10-21] MEDS: FERROUS SULFATE 325 MG (65 MG ELEMENTAL IRON) TAB PO SCH ×3 (08:02→17:00)
[2016-10-21] MEDS: buPROPion HCL 100 MG TAB PO SCH ×2 (08:02→21:35)
[2016-10-21] MEDS: ASCORBIC ACID 500 MG TAB PO SCH ×3 (08:02→17:00)
[2016-10-21] MEDS: METOPROLOL TARTRATE 25 MG TAB PO SCH ×2 (08:03→21:36)
[2016-10-21] MEDS: FAMOTIDINE 20 MG TAB PO SCH ×2 (08:03→21:36)
[2016-10-21] MEDS: LACTOBACILLUS ACIDOPHILUS TAB PO SCH ×3 (08:04→17:00)
[2016-10-21] MEDS: CALCIUM/VITAMIN D 250 MG/125 U TAB PO SCH ×2 (08:04→21:36)
[2016-10-21] MEDS: MULTIVITAMINS/IRON/MINERALS CHEWABLE TAB CHEW SCH (08:04)
[2016-10-21] MEDS: MUPIROCIN 2% OINT 22 GM TUBE TOPICAL SCH ×2 (08:04→21:36)
[2016-10-21] MEDS: NYSTATIN 100,000 U/GM OINT 15 GM TUBE TOPICAL SCH ×2 (08:05→21:37)
[2016-10-21] MEDS: NEOMYCIN/POLYMYXIN/BACITRACIN OINT 15 GM TUBE TOPICAL SCH ×2 (08:05→21:37)
[2016-10-21 12:00] VITALS: BP 136/74; PULSE 69; RESP 18; TEMP 95.1; O2SAT 97
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
[2016-10-21 16:00] VITALS: BP 129/62; PULSE 78; RESP 16; TEMP 97.4; O2SAT 96
[2016-10-21 20:00] VITALS: BP 132/57; PULSE 88; RESP 20; TEMP 96.8; O2SAT 95
[2016-10-22] VITALS: BP 133/67; PULSE 80; RESP 20; TEMP 97.8; O2SAT 97
[2016-10-22] MEDS: ENOXAPARIN SODIUM 60 MG/0.6 ML SYRINGE SQ SCH ×2 (04:50→17:45)
[2016-10-22 08:00] VITALS: BP 134/87; PULSE 79; RESP 18; TEMP 97; O2SAT 98
[2016-10-22] MEDS: HYDROCORTISONE 0.5% CREAM 30 GM TOPICAL SCH ×3 (08:00→23:06)
[2016-10-22] MEDS: NEOMYCIN/POLYMYXIN/BACITRACIN OINT 15 GM TUBE TOPICAL SCH ×2 (09:00→23:05)
[2016-10-22] MEDS: MULTIVITAMINS/IRON/MINERALS CHEWABLE TAB CHEW SCH (09:00)
[2016-10-22] MEDS: NYSTATIN 100,000 U/GM OINT 15 GM TUBE TOPICAL SCH ×2 (09:00→21:00)
[2016-10-22] MEDS: MUPIROCIN 2% OINT 22 GM TUBE TOPICAL SCH ×2 (09:00→23:04)
[2016-10-22] MEDS: CALCIUM/VITAMIN D 250 MG/125 U TAB PO SCH ×2 (09:55→23:02)
[2016-10-22] MEDS: ASCORBIC ACID 500 MG TAB PO SCH ×3 (09:55→17:44)
[2016-10-22] MEDS: FAMOTIDINE 20 MG TAB PO SCH ×2 (09:55→23:02)
[2016-10-22] MEDS: LACTOBACILLUS ACIDOPHILUS TAB PO SCH ×3 (09:55→17:44)
[2016-10-22] MEDS: CARISOPRODOL 350 MG TAB PO PRN ×2 (09:55→17:44)
[2016-10-22] MEDS: METOPROLOL TARTRATE 25 MG TAB PO SCH ×2 (09:55→23:02)
[2016-10-22] MEDS: buPROPion HCL 100 MG TAB PO SCH ×2 (09:55→23:02)
[2016-10-22] MEDS: FERROUS SULFATE 325 MG (65 MG ELEMENTAL IRON) TAB PO SCH ×3 (09:55→17:44)
[2016-10-22] MEDS: ERGOCALCIFEROL (VIT D2) 50,000 UNIT CAP PO SCH (09:56)
[2016-10-22] MEDS: LORazepam 0.5 MG TAB PO PRN (09:56)
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
[2016-10-22 12:00] VITALS: BP 133/65; PULSE 76; RESP 16; TEMP 97; O2SAT 99
[2016-10-22 16:00] VITALS: BP 126/68; PULSE 78; RESP 18; TEMP 97; O2SAT 99
[2016-10-22 20:00] VITALS: BP 123/58; PULSE 76; RESP 18; TEMP 96.7; O2SAT 96
[2016-10-23] VITALS: BP 118/58; PULSE 64; RESP 18; TEMP 97.7; O2SAT 97
[2016-10-23] MEDS: CARISOPRODOL 350 MG TAB PO PRN ×2 (05:12→16:07)
[2016-10-23] MEDS: ENOXAPARIN SODIUM 60 MG/0.6 ML SYRINGE SQ SCH ×2 (05:13→16:13)
[2016-10-23 08:00] VITALS: BP 108/57; PULSE 72; RESP 18; TEMP 98.1; O2SAT 96
[2016-10-23] MEDS: MULTIVITAMINS/IRON/MINERALS CHEWABLE TAB CHEW SCH (09:00)
[2016-10-23] MEDS: HYDROCORTISONE 0.5% CREAM 30 GM TOPICAL SCH ×3 (10:25→20:57)
[2016-10-23] MEDS: NEOMYCIN/POLYMYXIN/BACITRACIN OINT 15 GM TUBE TOPICAL SCH ×2 (10:25→20:56)
[2016-10-23] MEDS: NYSTATIN 100,000 U/GM OINT 15 GM TUBE TOPICAL SCH ×2 (10:25→20:56)
[2016-10-23] MEDS: FERROUS SULFATE 325 MG (65 MG ELEMENTAL IRON) TAB PO SCH ×3 (10:28→18:19)
[2016-10-23] MEDS: METOPROLOL TARTRATE 25 MG TAB PO SCH ×2 (10:28→20:51)
[2016-10-23] MEDS: LACTOBACILLUS ACIDOPHILUS TAB PO SCH ×3 (10:28→18:19)
[2016-10-23] MEDS: ASCORBIC ACID 500 MG TAB PO SCH ×3 (10:29→18:19)
[2016-10-23] MEDS: FAMOTIDINE 20 MG TAB PO SCH ×2 (10:29→20:52)
[2016-10-23] MEDS: CALCIUM/VITAMIN D 250 MG/125 U TAB PO SCH ×2 (10:29→20:52)
[2016-10-23] MEDS: buPROPion HCL 100 MG TAB PO SCH ×2 (10:29→20:51)
[2016-10-23] MEDS: LORazepam 0.5 MG TAB PO PRN (10:30)
[2016-10-23] MEDS: MUPIROCIN 2% OINT 22 GM TUBE TOPICAL SCH ×2 (10:30→20:54)
[2016-10-23 12:00] VITALS: BP 110/63; PULSE 75; RESP 19; TEMP 97.8; O2SAT 99
[2016-10-23] MEDS: NAPROXEN 500 MG TAB PO SCH ×2 (12:39→20:52)
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
[2016-10-23 16:00] VITALS: BP 109/59; PULSE 75; RESP 19; TEMP 97.9; O2SAT 97
[2016-10-23 20:00] VITALS: BP 119/57; PULSE 70; RESP 20; TEMP 97.7; O2SAT 97
[2016-10-24] VITALS: BP 117/56; PULSE 65; RESP 20; TEMP 97.6; O2SAT 98
[2016-10-24] MEDS: ENOXAPARIN SODIUM 60 MG/0.6 ML SYRINGE SQ SCH ×2 (02:46→18:45)
[2016-10-24] MEDS: CARISOPRODOL 350 MG TAB PO PRN ×3 (02:46→20:37)
[2016-10-24 08:00] VITALS: BP 100/51; PULSE 48; RESP 17; TEMP 95.9; O2SAT 100
[2016-10-24] MEDS: HYDROCORTISONE 0.5% CREAM 30 GM TOPICAL SCH ×2 (08:00→16:00)
[2016-10-24] MEDS: METOPROLOL TARTRATE 25 MG TAB PO SCH ×2 (09:00→20:37)
[2016-10-24] MEDS: MULTIVITAMINS/IRON/MINERALS CHEWABLE TAB CHEW SCH (09:00)
[2016-10-24] MEDS: NAPROXEN 500 MG TAB PO SCH ×2 (09:25→20:37)
[2016-10-24] MEDS: FAMOTIDINE 20 MG TAB PO SCH ×2 (09:25→20:37)
[2016-10-24] MEDS: FERROUS SULFATE 325 MG (65 MG ELEMENTAL IRON) TAB PO SCH ×3 (09:25→18:44)
[2016-10-24] MEDS: ASCORBIC ACID 500 MG TAB PO SCH ×3 (09:25→18:45)
[2016-10-24] MEDS: LACTOBACILLUS ACIDOPHILUS TAB PO SCH ×3 (09:26→18:45)
[2016-10-24] MEDS: buPROPion HCL 100 MG TAB PO SCH ×2 (09:26→20:37)
[2016-10-24] MEDS: CALCIUM/VITAMIN D 250 MG/125 U TAB PO SCH ×2 (09:26→20:37)
[2016-10-24] MEDS: NEOMYCIN/POLYMYXIN/BACITRACIN OINT 15 GM TUBE TOPICAL SCH ×2 (09:27→20:40)
[2016-10-24] MEDS: MUPIROCIN 2% OINT 22 GM TUBE TOPICAL SCH ×2 (09:27→20:39)
[2016-10-24] MEDS: NYSTATIN 100,000 U/GM OINT 15 GM TUBE TOPICAL SCH ×2 (09:27→20:40)
[2016-10-24] MEDS: LORazepam 0.5 MG TAB PO PRN (10:28)
[2016-10-24 12:00] VITALS: BP 100/58; PULSE 65; RESP 17; TEMP 96.2; O2SAT 97
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
[2016-10-24 16:00] VITALS: BP 93/50; PULSE 72; RESP 17; TEMP 96.6; O2SAT 99
[2016-10-24 20:00] VITALS: BP 125/60; PULSE 65; RESP 16; TEMP 98.8; O2SAT 98
[2016-10-25] VITALS: BP 121/57; PULSE 79; RESP 16; TEMP 96.2; O2SAT 98
[2016-10-25] MEDS: ENOXAPARIN SODIUM 60 MG/0.6 ML SYRINGE SQ SCH ×2 (05:09→16:23)
[2016-10-25 08:00] VITALS: BP 127/60; PULSE 67; RESP 19; TEMP 96.9; O2SAT 96
[2016-10-25] MEDS: LORazepam 0.5 MG TAB PO PRN (08:56)
[2016-10-25] MEDS: CARISOPRODOL 350 MG TAB PO PRN ×2 (08:56→16:22)
[2016-10-25] MEDS: CALCIUM/VITAMIN D 250 MG/125 U TAB PO SCH ×2 (08:57→20:43)
[2016-10-25] MEDS: MULTIVITAMINS/IRON/MINERALS CHEWABLE TAB CHEW SCH (08:57)
[2016-10-25] MEDS: buPROPion HCL 100 MG TAB PO SCH ×2 (08:57→20:43)
[2016-10-25] MEDS: ASCORBIC ACID 500 MG TAB PO SCH ×3 (08:58→17:37)
[2016-10-25] MEDS: LACTOBACILLUS ACIDOPHILUS TAB PO SCH ×3 (08:58→17:37)
[2016-10-25] MEDS: FERROUS SULFATE 325 MG (65 MG ELEMENTAL IRON) TAB PO SCH ×3 (08:58→17:37)
[2016-10-25] MEDS: FAMOTIDINE 20 MG TAB PO SCH ×2 (08:58→20:42)
[2016-10-25] MEDS: NAPROXEN 500 MG TAB PO SCH ×2 (08:58→20:42)
[2016-10-25] MEDS: METOPROLOL TARTRATE 25 MG TAB PO SCH ×2 (08:58→20:42)
[2016-10-25] MEDS: MUPIROCIN 2% OINT 22 GM TUBE TOPICAL SCH ×2 (09:00→20:45)
[2016-10-25] MEDS: NYSTATIN 100,000 U/GM OINT 15 GM TUBE TOPICAL SCH ×2 (09:01→20:45)
[2016-10-25] MEDS: HYDROCORTISONE 0.5% CREAM 30 GM TOPICAL SCH ×3 (09:01→16:26)
[2016-10-25] MEDS: NEOMYCIN/POLYMYXIN/BACITRACIN OINT 15 GM TUBE TOPICAL SCH ×2 (09:01→20:46)
[2016-10-25 12:00] VITALS: BP 125/60; PULSE 59; RESP 19; TEMP 97.2; O2SAT 97
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
[2016-10-25 16:00] VITALS: BP 130/62; PULSE 70; RESP 19; TEMP 97.5; O2SAT 97
[2016-10-25 20:00] VITALS: BP 126/60; PULSE 74; RESP 17; TEMP 98.8; O2SAT 96
[2016-10-26] VITALS: BP 127/60; PULSE 71; RESP 17; TEMP 98; O2SAT 97
[2016-10-26] MEDS: CARISOPRODOL 350 MG TAB PO PRN ×3 (02:27→17:57)
[2016-10-26] MEDS: ENOXAPARIN SODIUM 60 MG/0.6 ML SYRINGE SQ SCH ×2 (04:21→15:53)
[2016-10-26 08:00] VITALS: BP 118/57; PULSE 60; RESP 19; TEMP 96.9; O2SAT 100
[2016-10-26] MEDS: MULTIVITAMINS/IRON/MINERALS CHEWABLE TAB CHEW SCH (09:00)
[2016-10-26] MEDS: NEOMYCIN/POLYMYXIN/BACITRACIN OINT 15 GM TUBE TOPICAL SCH ×2 (09:00→19:55)
[2016-10-26] MEDS: MUPIROCIN 2% OINT 22 GM TUBE TOPICAL SCH ×2 (09:00→19:55)
[2016-10-26] MEDS: buPROPion HCL 100 MG TAB PO SCH ×2 (09:12→19:49)
[2016-10-26] MEDS: LORazepam 0.5 MG TAB PO PRN (09:12)
[2016-10-26] MEDS: LACTOBACILLUS ACIDOPHILUS TAB PO SCH ×3 (09:13→17:57)
[2016-10-26] MEDS: ASCORBIC ACID 500 MG TAB PO SCH ×3 (09:13→17:57)
[2016-10-26] MEDS: FERROUS SULFATE 325 MG (65 MG ELEMENTAL IRON) TAB PO SCH ×3 (09:13→17:57)
[2016-10-26] MEDS: METOPROLOL TARTRATE 25 MG TAB PO SCH ×2 (09:14→19:49)
[2016-10-26] MEDS: CALCIUM/VITAMIN D 250 MG/125 U TAB PO SCH ×2 (09:14→19:49)
[2016-10-26] MEDS: NAPROXEN 500 MG TAB PO SCH (09:14)
[2016-10-26] MEDS: FAMOTIDINE 20 MG TAB PO SCH ×2 (09:14→19:49)
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
[2016-10-26] MEDS: NYSTATIN 100,000 U/GM OINT 15 GM TUBE TOPICAL SCH ×2 (09:18→19:54)
[2016-10-26] MEDS: HYDROCORTISONE 0.5% CREAM 30 GM TOPICAL SCH ×4 (09:18→19:53)
[2016-10-26 12:00] VITALS: BP 137/65; PULSE 62; RESP 20; TEMP 97.5; O2SAT 97
[2016-10-26 16:00] VITALS: BP 116/58; PULSE 66; RESP 19; TEMP 97.4; O2SAT 95
[2016-10-26] MEDS: LACTIC ACID (AMMONIUM LACTATE) 12% LOTION 225 GM BTL TOPICAL SCH (19:57)
[2016-10-26 20:00] VITALS: BP 138/62; PULSE 70; RESP 17; TEMP 98.5; O2SAT 97
[2016-10-27] VITALS: BP 120/62; PULSE 69; RESP 17; TEMP 97.8; O2SAT 98
[2016-10-27] MEDS: CARISOPRODOL 350 MG TAB PO PRN ×3 (02:35→17:39)
[2016-10-27] MEDS: ENOXAPARIN SODIUM 60 MG/0.6 ML SYRINGE SQ SCH ×2 (02:35→17:40)
[2016-10-27 08:00] VITALS: BP 128/56; PULSE 67; RESP 16; TEMP 96; O2SAT 99
[2016-10-27] MEDS: HYDROCORTISONE 0.5% CREAM 30 GM TOPICAL SCH ×2 (08:00→16:00)
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
[2016-10-27] MEDS: MUPIROCIN 2% OINT 22 GM TUBE TOPICAL SCH ×2 (09:00→20:41)
[2016-10-27] MEDS: NYSTATIN 100,000 U/GM OINT 15 GM TUBE TOPICAL SCH ×2 (09:00→20:42)
[2016-10-27] MEDS: NEOMYCIN/POLYMYXIN/BACITRACIN OINT 15 GM TUBE TOPICAL SCH ×2 (09:00→20:42)
[2016-10-27] MEDS: MULTIVITAMINS/IRON/MINERALS CHEWABLE TAB CHEW SCH (09:00)
[2016-10-27] MEDS: LACTIC ACID (AMMONIUM LACTATE) 12% LOTION 225 GM BTL TOPICAL SCH ×2 (09:00→20:41)
[2016-10-27] MEDS: METOPROLOL TARTRATE 25 MG TAB PO SCH ×2 (10:06→20:38)
[2016-10-27] MEDS: LACTOBACILLUS ACIDOPHILUS TAB PO SCH ×3 (10:06→17:39)
[2016-10-27] MEDS: ASCORBIC ACID 500 MG TAB PO SCH ×3 (10:06→17:39)
[2016-10-27] MEDS: CALCIUM/VITAMIN D 250 MG/125 U TAB PO SCH ×2 (10:06→20:38)
[2016-10-27] MEDS: FERROUS SULFATE 325 MG (65 MG ELEMENTAL IRON) TAB PO SCH ×3 (10:06→17:39)
[2016-10-27] MEDS: buPROPion HCL 100 MG TAB PO SCH ×2 (10:06→20:38)
[2016-10-27] MEDS: FAMOTIDINE 20 MG TAB PO SCH ×2 (10:07→20:37)
[2016-10-27 12:00] VITALS: BP 102/52; PULSE 65; RESP 16; TEMP 96.8; O2SAT 96
[2016-10-27 20:00] VITALS: BP 122/58; PULSE 65; RESP 20; TEMP 98.4; O2SAT 97
[2016-10-28] VITALS: BP 128/58; PULSE 79; RESP 20; TEMP 97.3; O2SAT 98
[2016-10-28] MEDS: CARISOPRODOL 350 MG TAB PO PRN ×3 (01:42→18:20)
[2016-10-28] MEDS: ENOXAPARIN SODIUM 60 MG/0.6 ML SYRINGE SQ SCH ×2 (05:48→18:25)
[2016-10-28 08:00] VITALS: BP 127/59; PULSE 70; RESP 19; TEMP 96.3; O2SAT 99
[2016-10-28] MEDS: HYDROCORTISONE 0.5% CREAM 30 GM TOPICAL SCH ×3 (08:00→20:34)
[2016-10-28] MEDS: LACTIC ACID (AMMONIUM LACTATE) 12% LOTION 225 GM BTL TOPICAL SCH ×2 (09:00→20:35)
[2016-10-28] MEDS: NEOMYCIN/POLYMYXIN/BACITRACIN OINT 15 GM TUBE TOPICAL SCH ×2 (09:00→20:36)
[2016-10-28] MEDS: MULTIVITAMINS/IRON/MINERALS CHEWABLE TAB CHEW SCH (09:00)
[2016-10-28] MEDS: MUPIROCIN 2% OINT 22 GM TUBE TOPICAL SCH ×2 (09:00→20:35)
[2016-10-28] MEDS: NYSTATIN 100,000 U/GM OINT 15 GM TUBE TOPICAL SCH ×2 (09:00→20:36)
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
[2016-10-28] MEDS: buPROPion HCL 100 MG TAB PO SCH ×2 (09:36→20:35)
[2016-10-28] MEDS: FERROUS SULFATE 325 MG (65 MG ELEMENTAL IRON) TAB PO SCH ×3 (09:36→18:21)
[2016-10-28] MEDS: CALCIUM/VITAMIN D 250 MG/125 U TAB PO SCH ×2 (09:36→20:35)
[2016-10-28] MEDS: LACTOBACILLUS ACIDOPHILUS TAB PO SCH ×3 (09:36→18:20)
[2016-10-28] MEDS: METOPROLOL TARTRATE 25 MG TAB PO SCH ×2 (09:36→20:35)
[2016-10-28] MEDS: ASCORBIC ACID 500 MG TAB PO SCH ×3 (09:36→18:21)
[2016-10-28] MEDS: FAMOTIDINE 20 MG TAB PO SCH ×2 (09:36→20:35)
[2016-10-28 12:00] VITALS: BP 128/59; PULSE 70; RESP 17; TEMP 95.8; O2SAT 97
[2016-10-28 15:15] LABS: AUTOMATED NEUTROPHIL # 3.5 TH/MM3 (1.8-7.7); BASOPHIL % 0.7 % (0.0-2.0); EOSINOPHIL # 0.2 TH/MM3 (0-0.4); HEMATOCRIT 35.4 % (39.0-51.0); HEMO FLAGS DIFF FINAL; LYMPH % 24.4 % (9.0-44.0); LYMPHOCYTE # 1.3 TH/MM3 (1.0-4.8); MEAN CELL VOLUME 80.9 FL (80.0-100.0); MEAN CORPUSCULAR HGB CONC 32.2 % (32.0-36.0); MONO % 5.7 % (0.0-8.0); NEUT % 65.2 % (16.0-70.0); PLATELET COUNT 194 TH/MM3 (150-450); RED BLOOD COUNT 4.37 MIL/MM3 (4.50-5.90); RED CELL DISTRIBUTION WIDTH 17.9 % (11.6-17.2); WHITE BLOOD COUNT 5.3 TH/MM3 (4.0-11.0)
[2016-10-28 15:37] LABS: BICARBONATE 29.4 MEQ/L (21.0-32.0)
[2016-10-28 16:00] VITALS: BP 138/60; PULSE 73; RESP 17; TEMP 96.8; O2SAT 99
[2016-10-28 20:00] VITALS: BP 120/58; PULSE 76; RESP 18; TEMP 98.5; O2SAT 97
[2016-10-29] VITALS: BP 124/60; PULSE 71; RESP 18; TEMP 97; O2SAT 97
[2016-10-29] MEDS: CARISOPRODOL 350 MG TAB PO PRN ×3 (02:21→16:45)
[2016-10-29] MEDS: ENOXAPARIN SODIUM 60 MG/0.6 ML SYRINGE SQ SCH ×2 (02:21→16:38)
[2016-10-29 08:00] VITALS: BP 105/59; PULSE 58; RESP 14; TEMP 96; O2SAT 98
[2016-10-29] MEDS: HYDROCORTISONE 0.5% CREAM 30 GM TOPICAL SCH ×3 (08:00→23:59)
[2016-10-29] MEDS: ERGOCALCIFEROL (VIT D2) 50,000 UNIT CAP PO SCH (08:55)
[2016-10-29] MEDS: ASCORBIC ACID 500 MG TAB PO SCH ×3 (08:55→18:41)
[2016-10-29] MEDS: LACTOBACILLUS ACIDOPHILUS TAB PO SCH ×3 (08:55→18:41)
[2016-10-29] MEDS: METOPROLOL TARTRATE 25 MG TAB PO SCH ×3 (08:55→21:36)
[2016-10-29] MEDS: buPROPion HCL 100 MG TAB PO SCH ×2 (08:55→21:36)
[2016-10-29] MEDS: FERROUS SULFATE 325 MG (65 MG ELEMENTAL IRON) TAB PO SCH ×3 (08:55→18:41)
[2016-10-29] MEDS: CALCIUM/VITAMIN D 250 MG/125 U TAB PO SCH ×2 (08:55→21:36)
[2016-10-29] MEDS: MULTIVITAMINS/IRON/MINERALS CHEWABLE TAB CHEW SCH (08:55)
[2016-10-29] MEDS: FAMOTIDINE 20 MG TAB PO SCH ×2 (08:55→21:00)
[2016-10-29] MEDS: NEOMYCIN/POLYMYXIN/BACITRACIN OINT 15 GM TUBE TOPICAL SCH ×2 (09:00→21:00)
[2016-10-29] MEDS: LACTIC ACID (AMMONIUM LACTATE) 12% LOTION 225 GM BTL TOPICAL SCH ×2 (09:00→21:00)
[2016-10-29] MEDS: NYSTATIN 100,000 U/GM OINT 15 GM TUBE TOPICAL SCH ×2 (09:00→21:00)
[2016-10-29] MEDS: MUPIROCIN 2% OINT 22 GM TUBE TOPICAL SCH ×2 (09:00→21:00)
[2016-10-29 16:00] VITALS: BP 122/59; PULSE 84; RESP 14; TEMP 95.5; O2SAT 97
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
[2016-10-29 20:00] VITALS: BP 123/75; PULSE 72; RESP 17; TEMP 96.2; O2SAT 100
[2016-10-30] VITALS: BP 133/59; PULSE 75; RESP 17; TEMP 96.1; O2SAT 98
[2016-10-30] MEDS: CARISOPRODOL 350 MG TAB PO PRN ×3 (00:48→17:24)
[2016-10-30] MEDS: ENOXAPARIN SODIUM 60 MG/0.6 ML SYRINGE SQ SCH ×2 (04:44→16:26)
[2016-10-30 08:00] VITALS: BP 100/55; PULSE 67; RESP 16; TEMP 98.2; O2SAT 98
[2016-10-30] MEDS: HYDROCORTISONE 0.5% CREAM 30 GM TOPICAL SCH ×2 (08:00→16:00)
[2016-10-30] MEDS: CALCIUM/VITAMIN D 250 MG/125 U TAB PO SCH ×2 (08:04→20:12)
[2016-10-30] MEDS: LACTOBACILLUS ACIDOPHILUS TAB PO SCH ×3 (08:04→17:24)
[2016-10-30] MEDS: FAMOTIDINE 20 MG TAB PO SCH ×2 (08:04→20:12)
[2016-10-30] MEDS: ASCORBIC ACID 500 MG TAB PO SCH ×3 (08:05→17:24)
[2016-10-30] MEDS: buPROPion HCL 100 MG TAB PO SCH ×2 (08:05→20:12)
[2016-10-30] MEDS: METOPROLOL TARTRATE 25 MG TAB PO SCH ×2 (08:05→20:12)
[2016-10-30] MEDS: MULTIVITAMINS/IRON/MINERALS CHEWABLE TAB CHEW SCH (08:05)
[2016-10-30] MEDS: FERROUS SULFATE 325 MG (65 MG ELEMENTAL IRON) TAB PO SCH ×3 (08:05→17:24)
[2016-10-30] MEDS: LACTIC ACID (AMMONIUM LACTATE) 12% LOTION 225 GM BTL TOPICAL SCH ×2 (08:06→20:19)
[2016-10-30] MEDS: MUPIROCIN 2% OINT 22 GM TUBE TOPICAL SCH ×2 (08:06→20:18)
[2016-10-30] MEDS: NYSTATIN 100,000 U/GM OINT 15 GM TUBE TOPICAL SCH ×2 (08:06→20:19)
[2016-10-30] MEDS: NEOMYCIN/POLYMYXIN/BACITRACIN OINT 15 GM TUBE TOPICAL SCH ×2 (08:06→20:19)
[2016-10-30] MEDS: LORazepam 0.5 MG TAB PO PRN (09:28)
[2016-10-30 12:00] VITALS: BP 113/66; PULSE 70; RESP 18; TEMP 98; O2SAT 99
[2016-10-30 16:00] VITALS: BP 113/63; PULSE 71; RESP 17; TEMP 96; O2SAT 98
[2016-10-30 20:00] VITALS: BP 109/62; PULSE 74; RESP 17; TEMP 97.9; O2SAT 97
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
[2016-10-31] VITALS: BP 118/64; PULSE 72; RESP 17; TEMP 98.7; O2SAT 98
[2016-10-31] MEDS: CARISOPRODOL 350 MG TAB PO PRN ×4 (02:03→22:42)
[2016-10-31] MEDS: ENOXAPARIN SODIUM 60 MG/0.6 ML SYRINGE SQ SCH ×2 (02:06→14:51)
[2016-10-31 08:00] VITALS: BP 121/59; PULSE 74; RESP 20; TEMP 97.4; O2SAT 96
[2016-10-31] MEDS: LACTOBACILLUS ACIDOPHILUS TAB PO SCH ×3 (09:56→18:00)
[2016-10-31] MEDS: buPROPion HCL 100 MG TAB PO SCH ×2 (09:57→22:42)
[2016-10-31] MEDS: MULTIVITAMINS/IRON/MINERALS CHEWABLE TAB CHEW SCH (09:57)
[2016-10-31] MEDS: METOPROLOL TARTRATE 25 MG TAB PO SCH ×2 (09:58→22:42)
[2016-10-31] MEDS: FERROUS SULFATE 325 MG (65 MG ELEMENTAL IRON) TAB PO SCH ×3 (09:58→18:00)
[2016-10-31] MEDS: CALCIUM/VITAMIN D 250 MG/125 U TAB PO SCH ×2 (09:58→22:42)
[2016-10-31] MEDS: ASCORBIC ACID 500 MG TAB PO SCH ×3 (09:58→18:00)
[2016-10-31] MEDS: FAMOTIDINE 20 MG TAB PO SCH ×2 (09:58→22:42)
[2016-10-31] MEDS: LORazepam 0.5 MG TAB PO PRN (09:59)
[2016-10-31] MEDS: MUPIROCIN 2% OINT 22 GM TUBE TOPICAL SCH ×2 (10:02→21:00)
[2016-10-31] MEDS: LACTIC ACID (AMMONIUM LACTATE) 12% LOTION 225 GM BTL TOPICAL SCH ×2 (10:02→21:00)
[2016-10-31] MEDS: NYSTATIN 100,000 U/GM OINT 15 GM TUBE TOPICAL SCH ×2 (10:03→21:00)
[2016-10-31] MEDS: NEOMYCIN/POLYMYXIN/BACITRACIN OINT 15 GM TUBE TOPICAL SCH ×2 (10:04→21:00)
[2016-10-31] MEDS: HYDROCORTISONE 0.5% CREAM 30 GM TOPICAL SCH ×2 (10:05)
[2016-10-31 12:00] VITALS: BP 128/56; PULSE 67; RESP 19; TEMP 97.5; O2SAT 97
[2016-10-31 16:00] VITALS: BP 120/59; PULSE 66; RESP 19; TEMP 98.4; O2SAT 96
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
[2016-10-31 20:00] VITALS: BP 116/58; PULSE 64; RESP 17; TEMP 96.4; O2SAT 96
[2016-11-01 00:23] VITALS: BP 120/70; PULSE 85; RESP 20; TEMP 97; O2SAT 97
[2016-11-01] MEDS: ENOXAPARIN SODIUM 60 MG/0.6 ML SYRINGE SQ SCH ×2 (05:48→14:56)
[2016-11-01 08:00] VITALS: BP 113/67; PULSE 67; RESP 16; TEMP 97; O2SAT 96
[2016-11-01] MEDS: buPROPion HCL 100 MG TAB PO SCH ×2 (09:17→20:51)
[2016-11-01] MEDS: MULTIVITAMINS/IRON/MINERALS CHEWABLE TAB CHEW SCH (09:19)
[2016-11-01] MEDS: LACTOBACILLUS ACIDOPHILUS TAB PO SCH ×3 (09:20→18:16)
[2016-11-01] MEDS: FERROUS SULFATE 325 MG (65 MG ELEMENTAL IRON) TAB PO SCH ×3 (09:22→18:17)
[2016-11-01] MEDS: ASCORBIC ACID 500 MG TAB PO SCH ×3 (09:22→18:17)
[2016-11-01] MEDS: FAMOTIDINE 20 MG TAB PO SCH ×2 (09:23→20:51)
[2016-11-01] MEDS: LORazepam 0.5 MG TAB PO PRN (09:23)
[2016-11-01] MEDS: CARISOPRODOL 350 MG TAB PO PRN ×3 (09:23→23:03)
[2016-11-01] MEDS: METOPROLOL TARTRATE 25 MG TAB PO SCH ×2 (09:23→20:51)
[2016-11-01] MEDS: CALCIUM/VITAMIN D 250 MG/125 U TAB PO SCH ×2 (09:23→20:51)
[2016-11-01] MEDS: NEOMYCIN/POLYMYXIN/BACITRACIN OINT 15 GM TUBE TOPICAL SCH ×2 (09:26→20:52)
[2016-11-01] MEDS: MUPIROCIN 2% OINT 22 GM TUBE TOPICAL SCH ×2 (09:26→20:52)
[2016-11-01] MEDS: NYSTATIN 100,000 U/GM OINT 15 GM TUBE TOPICAL SCH ×2 (09:27→20:52)
[2016-11-01] MEDS: HYDROCORTISONE 0.5% CREAM 30 GM TOPICAL SCH ×3 (09:28→23:26)
[2016-11-01] MEDS: LACTIC ACID (AMMONIUM LACTATE) 12% LOTION 225 GM BTL TOPICAL SCH ×2 (09:29→20:52)
[2016-11-01 12:00] VITALS: BP 120/60; PULSE 70; RESP 16; TEMP 98; O2SAT 97
[2016-11-01 16:00] VITALS: BP 120/60; PULSE 74; RESP 18; TEMP 97.6; O2SAT 97
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
[2016-11-01 20:00] VITALS: BP 118/59; PULSE 76; RESP 18; TEMP 96.9; O2SAT 97
[2016-11-02] VITALS: BP 128/67; PULSE 66; RESP 17; TEMP 96.8; O2SAT 98
[2016-11-02] MEDS: ENOXAPARIN SODIUM 60 MG/0.6 ML SYRINGE SQ SCH ×2 (03:20→17:13)
[2016-11-02 08:00] VITALS: BP 116/60; PULSE 67; RESP 17; TEMP 97.1; O2SAT 99
[2016-11-02] MEDS: HYDROCORTISONE 0.5% CREAM 30 GM TOPICAL SCH ×3 (08:00→22:09)
[2016-11-02] MEDS: NEOMYCIN/POLYMYXIN/BACITRACIN OINT 15 GM TUBE TOPICAL SCH ×2 (09:00→22:09)
[2016-11-02] MEDS: MUPIROCIN 2% OINT 22 GM TUBE TOPICAL SCH ×2 (09:00→22:09)
[2016-11-02] MEDS: MULTIVITAMINS/IRON/MINERALS CHEWABLE TAB CHEW SCH (09:00)
[2016-11-02] MEDS: LACTIC ACID (AMMONIUM LACTATE) 12% LOTION 225 GM BTL TOPICAL SCH ×2 (09:00→22:10)
[2016-11-02] MEDS: NYSTATIN 100,000 U/GM OINT 15 GM TUBE TOPICAL SCH ×2 (09:00→22:09)
[2016-11-02] MEDS: CARISOPRODOL 350 MG TAB PO PRN ×2 (09:34→17:13)
[2016-11-02] MEDS: CALCIUM/VITAMIN D 250 MG/125 U TAB PO SCH ×2 (09:35→22:07)
[2016-11-02] MEDS: FAMOTIDINE 20 MG TAB PO SCH ×2 (09:35→22:07)
[2016-11-02] MEDS: buPROPion HCL 100 MG TAB PO SCH ×2 (09:35→22:07)
[2016-11-02] MEDS: METOPROLOL TARTRATE 25 MG TAB PO SCH ×2 (09:35→21:00)
[2016-11-02] MEDS: LACTOBACILLUS ACIDOPHILUS TAB PO SCH ×3 (09:35→17:13)
[2016-11-02] MEDS: FERROUS SULFATE 325 MG (65 MG ELEMENTAL IRON) TAB PO SCH ×3 (09:35→17:13)
[2016-11-02] MEDS: ASCORBIC ACID 500 MG TAB PO SCH ×3 (09:35→17:13)
[2016-11-02] MEDS: LORazepam 0.5 MG TAB PO PRN (09:35)
[2016-11-02 12:00] VITALS: BP 121/69; PULSE 61; RESP 17; TEMP 97; O2SAT 96
[2016-11-02 16:00] VITALS: BP 120/60; PULSE 66; RESP 17; TEMP 97.6; O2SAT 97
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
[2016-11-02 20:00] VITALS: BP 117/64; PULSE 84; RESP 19; TEMP 98; O2SAT 96
[2016-11-03] VITALS: BP 117/57; PULSE 68; RESP 19; TEMP 98; O2SAT 98
[2016-11-03] MEDS: ENOXAPARIN SODIUM 60 MG/0.6 ML SYRINGE SQ SCH ×2 (03:35→17:43)
[2016-11-03] MEDS: CARISOPRODOL 350 MG TAB PO PRN ×3 (03:36→21:36)
[2016-11-03 08:00] VITALS: BP 128/77; PULSE 58; RESP 17; TEMP 96.6; O2SAT 98
[2016-11-03] MEDS: NYSTATIN 100,000 U/GM OINT 15 GM TUBE TOPICAL SCH ×2 (09:00→21:00)
[2016-11-03] MEDS: MULTIVITAMINS/IRON/MINERALS CHEWABLE TAB CHEW SCH (09:00)
[2016-11-03] MEDS: MUPIROCIN 2% OINT 22 GM TUBE TOPICAL SCH ×2 (09:00→21:40)
[2016-11-03] MEDS: FAMOTIDINE 20 MG TAB PO SCH ×2 (11:23→21:36)
[2016-11-03] MEDS: METOPROLOL TARTRATE 25 MG TAB PO SCH ×2 (11:23→21:37)
[2016-11-03] MEDS: buPROPion HCL 100 MG TAB PO SCH ×2 (11:23→21:36)
[2016-11-03] MEDS: FERROUS SULFATE 325 MG (65 MG ELEMENTAL IRON) TAB PO SCH ×3 (11:23→17:43)
[2016-11-03] MEDS: LACTOBACILLUS ACIDOPHILUS TAB PO SCH ×3 (11:23→17:43)
[2016-11-03] MEDS: ASCORBIC ACID 500 MG TAB PO SCH ×3 (11:24→17:43)
[2016-11-03] MEDS: CALCIUM/VITAMIN D 250 MG/125 U TAB PO SCH ×2 (11:24→21:36)
[2016-11-03] MEDS: LACTIC ACID (AMMONIUM LACTATE) 12% LOTION 225 GM BTL TOPICAL SCH ×2 (11:30→21:00)
[2016-11-03] MEDS: NEOMYCIN/POLYMYXIN/BACITRACIN OINT 15 GM TUBE TOPICAL SCH ×2 (11:31→21:41)
[2016-11-03] MEDS: HYDROCORTISONE 0.5% CREAM 30 GM TOPICAL SCH ×3 (11:32→21:41)
[2016-11-03 12:00] VITALS: BP 122/70; PULSE 92; RESP 17; TEMP 95.3; O2SAT 99
[2016-11-03] MEDS: LORazepam 0.5 MG TAB PO PRN (12:26)
[2016-11-03 16:00] VITALS: BP 126/65; PULSE 71; RESP 16; TEMP 95.6; O2SAT 97
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
[2016-11-03 20:00] VITALS: BP 130/72; PULSE 64; RESP 18; TEMP 97.6; O2SAT 99
[2016-11-04] VITALS: BP 140/81; PULSE 82; RESP 20; TEMP 96.3; O2SAT 98
[2016-11-04] MEDS: CARISOPRODOL 350 MG TAB PO PRN ×3 (05:36→21:01)
[2016-11-04] MEDS: ENOXAPARIN SODIUM 60 MG/0.6 ML SYRINGE SQ SCH ×2 (05:37→17:36)
[2016-11-04 07:26] LABS: HEMATOCRIT 34.6 % (39.0-51.0); MEAN CELL VOLUME 80.5 FL (80.0-100.0); MEAN CORPUSCULAR HEMOGLOBIN 26.4 PG (27.0-34.0); MEAN CORPUSCULAR HGB CONC 32.9 % (32.0-36.0); PLATELET COUNT 158 TH/MM3 (150-450); RED CELL DISTRIBUTION WIDTH 17.5 % (11.6-17.2); REVIEW FLAG FINAL; WHITE BLOOD COUNT 7.3 TH/MM3 (4.0-11.0)
[2016-11-04 07:50] LABS: BICARBONATE 27.3 MEQ/L (21.0-32.0); POTASSIUM 4.1 MEQ/L (3.5-5.1)
[2016-11-04 08:00] VITALS: BP 113/61; PULSE 60; RESP 16; TEMP 95.8; O2SAT 99
[2016-11-04] MEDS: HYDROCORTISONE 0.5% CREAM 30 GM TOPICAL SCH ×3 (08:00→23:09)
[2016-11-04] MEDS: NYSTATIN 100,000 U/GM OINT 15 GM TUBE TOPICAL SCH ×2 (09:00→21:01)
[2016-11-04] MEDS: MULTIVITAMINS/IRON/MINERALS CHEWABLE TAB CHEW SCH (09:00)
[2016-11-04] MEDS: NEOMYCIN/POLYMYXIN/BACITRACIN OINT 15 GM TUBE TOPICAL SCH ×2 (09:00→21:01)
[2016-11-04] MEDS: LACTIC ACID (AMMONIUM LACTATE) 12% LOTION 225 GM BTL TOPICAL SCH ×2 (09:00→21:01)
[2016-11-04] MEDS: MUPIROCIN 2% OINT 22 GM TUBE TOPICAL SCH ×2 (09:00→21:01)
[2016-11-04] MEDS: CALCIUM/VITAMIN D 250 MG/125 U TAB PO SCH ×2 (10:02→21:01)
[2016-11-04] MEDS: FAMOTIDINE 20 MG TAB PO SCH ×2 (10:02→21:01)
[2016-11-04] MEDS: buPROPion HCL 100 MG TAB PO SCH ×2 (10:02→21:01)
[2016-11-04] MEDS: ASCORBIC ACID 500 MG TAB PO SCH ×3 (10:03→17:36)
[2016-11-04] MEDS: METOPROLOL TARTRATE 25 MG TAB PO SCH ×2 (10:03→21:01)
[2016-11-04] MEDS: FERROUS SULFATE 325 MG (65 MG ELEMENTAL IRON) TAB PO SCH ×3 (10:03→17:36)
[2016-11-04] MEDS: LACTOBACILLUS ACIDOPHILUS TAB PO SCH ×3 (10:03→17:36)
--- NOTE | 2016-11-04 11:22 | HHI.PR ---
Subjective Remarks Follow-up for placement Patient has no complaints. He just asked me to turn to thermostat to 70. Deny any pain or diarrhea. He stated that since I last saw him he is able to stand up a little bit. Otherwise no complaints. Objective Vitals Vital Signs Date Time Temp Pulse Resp B/P (MAP) Pulse Ox O2 Delivery O2 Flow Rate FiO2 11/04/16 08:00 95.8 60 16 113/61 (78) 99 11/04/16 00:00 96.3 82 20 140/81 (100) 98 11/03/16 20:00 97.6 64 18 130/72 (91) 99 11/03/16 16:00 95.6 71 16 126/65 (85) 97 11/03/16 12:00 95.3 92 17 122/70 (87) 99 I/O 11/03/16 11/03/16 11/03/16 11/04/16 11/04/16 11/04/16 06:59 14:59 22:59 06:59 14:59 22:59 Intake Total 360 ml 1010 ml 360 ml Output Total 700 ml 1600 ml Balance -340 ml -590 ml 360 ml Intake Oral 360 ml 1010 ml 360 ml Output Urine Total 700 ml 1600 ml # Voids 3 # Bowel Movements 0 0 1 Result Diagram: 11/04/16 0708 11/04/16 0708 Objective Remarks ENERAL: Pt encountered laying a bed, food in front of him, friend in room. Not in acute distress. SKIN: Warm and dry. Tattoos noted. Feet edematous and evidencing xeroderma; less xeroderma present on right foot and now on left foot. Left thigh wound covered with bandage, wound noted to be improved. Laceration noted yesterday on left thigh appears continues to heal. No signs of infection. HEAD: Normocephalic. EYES: No scleral icterus. NECK: Supple, trachea midline. No lymphadenopathy. CARDIOVASCULAR: Regular rate and rhythm without murmurs, gallops, or rubs. RESPIRATORY: Breath sounds equal bilaterally. No accessory muscle use. GASTROINTESTINAL: Abdomen soft, obese, non-tender, nondistended. Bowel sounds active in all quadrants. Procedures Urinary catheter changed 08/18/16 sp IVC filter placement 09/2015 Pt reported urinary catheter removed 10/15/16. Medications and IVs Current Medications Hydromorphone HCl (Dilaudid Pf Inj) 1 mg Q4H PRN IV PAIN 1-5; Start 10/07/15 at 22:30; Stop 10/20/15 at 09:44; Status DC Hydromorphone HCl (Dilaudid Pf Inj) 2 mg Q4H PRN IV BREAKTHROUGH PAIN Last administered on 11/17/15at 04:25; Start 10/07/15 at 22:30; Stop 11/17/15 at 08:28 ; Status DC Pantoprazole Sodium (Protonix Inj) 40 mg DAILY IV PUSH Last administered on at 10:57; Start 10/08/15 at 09:00; Stop 10/16/15 at 16:20; Status DC Acetaminophen/ Hydrocodone Bitart ([place] 5-325 Mg) 1 tab Q4H PRN PO PAIN 1-5 IF TOLERATING PO MEDS Last administered on 10/11/15at 05:52; Start 10/10/15 at 16 :00; Stop 10/11/15 at 17:10; Status DC Acetaminophen/ Hydrocodone Bitart ([place] 5-325 Mg) 2 tab Q4H PRN PO PAIN 6-10 IF TOLERATING PO MED Last administered on 10/11/15at 01:35; Start 10/10/15 at 16: 00; Stop 10/11/15 at 17:10; Status DC Lactated Ringer's 1,000 ml @ 0 mls/hr Q24H IV Last administered on 10/11/15at 08:00; Start 10/11/15 at 08:00; Stop 10/11/15 at 23:15; Status DC Sodium Chloride 500 ml @ 0 mls/hr Q24H IV ; Start 10/11/15 at 08:00; Stop at 23:15; Status DC Insulin Human Regular (NovoLIN R INJ) See Protocol Table ... UNSCH X1 PRN SQ SEE PROTOCOL; Start 10/11/15 at 08:00; Stop 10/11/15 at 23:15; Status DC Metoprolol Tartrate (Lopressor) 25 mg UNSCH X1 PRN PO SEE LABEL COMMENTS; Start 10/11/15 at 08:00; Stop 10/11/15 at 23:15; Status DC Fentanyl Citrate (Sublimaze Inj) 250 mcg STK-MED ONCE .ROUTE Last administered on 10/11/15at 09:45; Start 10/11/15 at 09:13; Stop 10/11/15 at 09:14; Status DC Iohexol (Omnipaque 350 Inj) 20 ml STK-MED ONCE IV Last administered on at 10:44; Start 10/11/15 at 10:44; Stop 10/11/15 at 10:45; Status DC Gentamicin Sulfate (Gentamicin Inj) 240 mg STK-MED ONCE .ROUTE Last administered on 10/11/15at 14:24; Start 10/11/15 at 12:02; Stop 10/11/15 at 12:03 ; Status DC Cefazolin Sodium/ Dextrose 50 ml @ As Directed STK-MED ONCE .ROUTE Last administered on 10/11/15at 14:10; Start 10/11/15 at 12:03; Stop 10/11/15 at 12:04 ; Status DC Sodium Chloride 250 ml @ As Directed STK-MED ONCE .ROUTE ; Start 10/11/15 at 12 :03; Stop 10/11/15 at 12:04; Status DC Vancomycin HCl (Vancomycin Inj) 1,000 mg STK-MED ONCE .ROUTE Last administered on 10/11/15at 14:10; Start 10/11/15 at 12:03; Stop 10/11/15 at 12:04; Status DC Ranitidine HCl (Zantac Inj) 50 mg STK-MED ONCE .ROUTE Last administered on 10/10at 12:53; Start 10/11/15 at 12:53; Stop 10/11/15 at 12:54; Status DC Ketamine HCl (Ketalar Inj) 500 mg STK-MED ONCE .ROUTE ; Start 10/11/15 at 13:05 ; Stop 10/11/15 at 13:06; Status DC Tranexamic Acid 2000 mg/Sodium Chloride 120 ml @ 240 mls/hr UNSCH IV Last administered on 10/11/15at 14:18; Start 10/11/15 at 13:15; Stop 10/12/15 at 16:00 ; Status DC Sugammadex Sodium (Bridion Inj) 600 mg STK-MED ONCE IV PUSH ; Start 10/11/15 at 13:14; Stop 10/11/15 at 13:15; Status DC Sodium Chloride 250 ml @ As Directed STK-MED ONCE .ROUTE ; Start 10/11/15 at 14 :08; Stop 10/11/15 at 14:09; Status DC Vancomycin HCl (Vancomycin Inj) 1,000 mg STK-MED ONCE .ROUTE Last administered on 10/11/15at 14:10; Start 10/11/15 at 14:08; Stop 10/11/15 at 14:09; Status DC Acetaminophen (Ofirmev Inj) 1,000 mg STK-MED ONCE IV ; Start 10/11/15 at 15:25; Stop 10/11/15 at 15:26; Status DC Lactated Ringer's 1,000 ml @ 80 mls/hr [id number] IV Last administered on at 17:40; Start 10/11/15 at 17:00; Stop 10/12/15 at 07:31; Status DC IV Flush (NS Flush) 2 ml UNSCH PRN IVF FLUSH AFTER USING IV ACCESS; Start 10/10 at 16:00; Stop 10/11/15 at 23:15; Status DC IV Flush (NS Flush) 2 ml BID IVF Last administered on 10/11/15at 22:00; Start at 21:00; Stop 10/11/15 at 23:15; Status DC Miscellaneous Information (Post-op Orders (for Pharmacy)) STAT ONCE XX ; Start 10/11/15 at 16:00; Stop 10/11/15 at 17:40; Status DC Enoxaparin Sodium (Lovenox Inj) 40 mg Q12H SQ ; Start 10/12/15 at 16:00; Stop at 16:00; Status DC Senna/Docusate Sodium (Kristen-Colace) 1 tab BID PO Last administered on at 08:59; Start 10/11/15 at 21:00; Stop 01/06/16 at 18:39; Status DC Cefazolin Sodium/ Dextrose 50 ml @ 100 mls/hr Q8H IV ; Start 10/11/15 at 22:00 ; Stop 10/11/15 at 22:00; Status DC Vancomycin HCl 1000 mg/Sodium Chloride 250 ml @ 250 mls/hr Q12H IV Last administered on 10/13/15at 14:11; Start 10/12/15 at 02:00; Stop 10/13/15 at 14:59 ; Status DC Miscellaneous Information UNSCH PRN XX SEE LABEL COMMENTS; Start 10/11/15 at 16:00 Miscellaneous Medication ([facility]) ONCE ONCE XX ; Start at 16:00; Stop 10/11/15 at 17:11; Status DC Acetaminophen/ Hydrocodone Bitart ([place] 10-325 Mg) 1 tab Q3H PRN PO PAIN LESS THAN 5 ON SCALE Last administered on 10/19/15at 08:22; Start 10/11/15 at 16:00; Stop 11/10/15 at 11:22; Status DC Acetaminophen/ Hydrocodone Bitart ([place] 10-325 Mg) 2 tab Q6H PRN PO PAIN GREATER THAN/EQUAL TO 5 Last administered on 11/10/15at 10:12; Start 10/11/15 at 16:00; Stop 11/10/15 at 11:22; Status DC Ondansetron HCl (Zofran Inj) 4 mg Q4H PRN IVP NAUSEA OR VOMITING; Start at 16:00; Stop 10/11/15 at 23:15; Status DC Diphenhydramine HCl (Benadryl) 25 mg Q6H PRN PO ITCHING Last administered on t 08:35; Start 10/11/15 at 16:00 Naloxone HCl (Narcan Inj) 0.4 mg UNSCH PRN IV RESPIRATORY RATE LESS THAN 10; Start 10/11/15 at 16:00 Morphine Sulfate (Morphine 1 Mg/ ml SECURITIES COMPLIANCE EXAMINER) 30 mg UNSCH IV Last administered on at 17:40; Start 10/11/15 at 16:00; Stop 10/13/15 at 15:59; Status DC SECURITIES COMPLIANCE EXAMINER Dosage Infused (Pha) 1 Q8HR .XX Last administered on 10/12/15at 20:42; Start 10/11/15 at 22:00; Stop 10/13/15 at 13:59; Status DC Morphine Sulfate (Morphine Inj) 4 mg Q3H PRN IV PUSH break thru pain; Start at 16:00; Stop 10/20/15 at 09:44; Status DC Cefazolin Sodium/ Dextrose 50 ml @ 100 mls/hr Q8H IV Last administered on 10/12at 14:11; Start 10/11/15 at 21:00; Stop 10/13/15 at 13:29; Status DC Propofol 100 ml @ As Directed STK-MED ONCE .ROUTE Last administered on at 17:11; Start 10/11/15 at 17:11; Stop 10/11/15 at 17:12; Status DC Midazolam HCl (Versed Inj) 2 mg STK-MED ONCE .ROUTE ; Start 10/11/15 at 17:35; Stop 10/11/15 at 17:36; Status DC Midazolam HCl (Versed Inj) 2 mg STK-MED ONCE .ROUTE ; Start 10/11/15 at 17:35; Stop 10/11/15 at 17:36; Status DC Fentanyl Citrate (Sublimaze Inj) 500 mcg STK-MED ONCE .ROUTE ; Start 10/11/15 at 17:35; Stop 10/11/15 at 17:36; Status DC Miscellaneous Information ALL NURSING DEPARTME... UNSCH PRN XX SEE LABEL COMMENTS; Start 10/11/15 at 17:45; Stop 10/12/15 at 17:44; Status DC Morphine Sulfate (*morphine INJ PERIprocedure ONLY) 8 mg STK-MED ONCE .ROUTE Last administered on 10/11/15at 17:46; Start 10/11/15 at 17:46; Stop 10/11/15 at 17:47; Status DC Propofol 100 ml @ As Directed STK-MED ONCE .ROUTE Last administered on at 18:38; Start 10/11/15 at 18:38; Stop 10/11/15 at 18:39; Status DC Morphine Sulfate (*morphine INJ PERIprocedure ONLY) 8 mg STK-MED ONCE .ROUTE Last administered on 10/11/15at 18:39; Start 10/11/15 at 18:39; Stop 10/11/15 at 18:40; Status DC Morphine Sulfate (*morphine INJ PERIprocedure ONLY) 8 mg STK-MED ONCE .ROUTE Last administered on 10/11/15at 19:02; Start 10/11/15 at 19:02; Stop 10/11/15 at 19:03; Status DC Morphine Sulfate (*morphine INJ PERIprocedure ONLY) 8 mg STK-MED ONCE .ROUTE ; Start 10/11/15 at 19:04; Stop 10/11/15 at 19:05; Status DC Propofol 100 ml @ As Directed STK-MED ONCE .ROUTE Last administered on at 19:49; Start 10/11/15 at 19:49; Stop 10/11/15 at 19:50; Status DC Hydromorphone HCl (*DILAUDID PF INJ PERIprocedural ONLY) 1 mg STK-MED ONCE .ROUTE Last administered on 10/11/15at 20:52; Start 10/11/15 at 20:52; Stop at 20:53; Status DC Propofol 100 ml @ As Directed STK-MED ONCE .ROUTE Last administered on at 21:05; Start 10/11/15 at 21:05; Stop 10/11/15 at 21:06; Status DC Propofol 100 ml @ As Directed STK-MED ONCE .ROUTE ; Start 10/11/15 at 22:20; Stop 10/11/15 at 22:21; Status DC IV Flush (NS Flush) 2 ml UNSCH PRN IVF FLUSH AFTER USING IV ACCESS Last administered on 11/17/15at 04:24; Start 10/11/15 at 23:15; Stop 12/06/15 at 12: 30; Status DC IV Flush (NS Flush) 2 ml BID IVF Last administered on 12/05/15at 08:36; Start 10/12/15 at 09:00; Stop 12/06/15 at 12:30; Status DC Artificial Tears (Tears Naturale Opth Soln) 1 drop TID EACH EYE Last administered on 03/02/16t 16:41; Start 10/12/15 at 09:00; Stop 03/03/16 at 13:29; Status DC Ondansetron HCl (Zofran Inj) 4 mg Q6H PRN IV NAUSEA OR VOMITING Last administered on 11/24/15at 12:05; Start 10/11/15 at 23:15; Stop 07/05/16 at 13:53 ; Status DC Albuterol/ Ipratropium (Duoneb Neb) 1 ampule Q4HR NEB PRN INH WHEEZING; Start 10/11/15 at 23:15; Status Cancel Miscellaneous Information 1 Q361D XX Last administered on 10/11/15at 23:15; Start 10/11/15 at 23:15; Stop 02/02/16 at 12:06; Status DC Chlorhexidine Gluconate (Chlorhexidine 2% Cloth) Taper DAILY@04 TOP Last administered on 10/17/15at 05:00; Start 10/12/15 at 04:00; Stop 02/02/16 at 12:06 ; Status DC Chlorhexidine Gluconate (Chlorhexidine 2% Cloth) 3 pack UNSCH PRN TOP HYGIENIC CARE; Start 10/11/15 at 23:15; Stop 02/02/16 at 12:06; Status DC Chlorhexidine Gluconate (Peridex 0.12% Liq) 15 ml BID@08,20 MT Last administered on 11/01/15at 07:56; Start 10/12/15 at 08:00; Stop 11/11/15 at 09:28 ; Status DC Propofol 100 ml @ 0 mls/hr TITRATE IV Last administered on 10/12/15at 07:38; Start 10/11/15 at 23:15; Stop 10/13/15 at 15:51; Status DC Dexmedetomidine HCl 50 ml @ 0 mls/hr TITRATE IV Last administered on 10/12/15at 12:38; Start 10/12/15 at 07:30; Stop 10/12/15 at 08:59; Status DC Bumetanide (Bumetanide Inj) 2 mg ONCE ONCE IV PUSH Last administered on at 08:24; Start 10/12/15 at 07:30; Stop 10/12/15 at 08:08; Status DC Potassium Chloride (KCl 40 Meq/30 ml Liq) 40 meq ONCE ONCE PO ; Start 10/12/15 at 07:30; Stop 10/12/15 at 08:08; Status DC Piperacillin Sod/ Tazobactam Sod 100 ml @ 200 mls/hr Q6H IV Last administered on 10/13/15at 09:42; Start 10/12/15 at 10:00; Stop 10/13/15 at 15:50; Status DC Albuterol/ Ipratropium (Duoneb Neb) 1 ampule Q4HR NEB NEB Last administered on 10/13/15at 11:55; Start 10/12/15 at 08:00; Stop 10/13/15 at 13:04; Status DC Dexmedetomidine HCl 1000 mcg/ Sodium Chloride 250 ml @ 0 mls/hr TITRATE IV Last administered on 10/12/15at 12:00; Start 10/12/15 at 09:00; Stop 10/13/15 at 15:50; Status DC Potassium Chloride 100 ml @ 50 mls/hr Q2H IV Last administered on 10/12/15at 12 :39; Start 10/12/15 at 10:00; Stop 10/12/15 at 13:59; Status DC Propofol (Diprivan 200 Mg/20 ml Inj) 400 mg STK-MED ONCE IV ; Start 10/11/15 at 11:24; Stop 10/12/15 at 11:25; Status DC Ondansetron HCl (Zofran Inj) 4 mg STK-MED ONCE IV PUSH ; Start 10/11/15 at 11:24 ; Stop 10/12/15 at 11:25; Status DC Lactated Ringer's 1,000 ml @ As Directed STK-MED ONCE IV ; Start 10/11/15 at 11 :24; Stop 10/12/15 at 11:25; Status DC Sodium Chloride 250 ml @ As Directed STK-MED ONCE IV ; Start 10/11/15 at 11:24 ; Stop 10/12/15 at 11:25; Status DC Parenteral Electrolytes 3,000 ml @ As Directed STK-MED ONCE IV ; Start at 11:24; Stop 10/12/15 at 11:25; Status DC Mupirocin (Bactroban Nasal 2% Oint) 1 applic BID EACH NARE Last administered on 10/19/15at 08:22; Start 10/12/15 at 14:45; Stop 10/22/15 at 14:44; Status DC Enoxaparin Sodium (Lovenox Inj) 60 mg Q12H SQ Last administered on 10/13/15at 04 :15; Start 10/12/15 at 16:00; Stop 10/13/15 at 15:50; Status DC Albuterol/ Ipratropium (Duoneb Neb) 1 ampule Q6HR NEB NEB Last administered on 10/17/15at 15:45; Start 10/13/15 at 16:00; Stop 10/17/15 at 16:00; Status DC Sodium Chloride 1,000 ml @ 999 mls/hr Q1H1M IV ; Start 10/13/15 at 15:45; Stop 10/13/15 at 16:45; Status DC Sodium Chloride 1,000 ml @ 100 mls/hr Q10H IV ; Start 10/13/15 at 15:45; Stop 10/13/15 at 16:57; Status DC Piperacillin Sod/ Tazobactam Sod 100 ml @ 200 mls/hr Q8H IV Last administered on 10/20/15at 08:08; Start 10/13/15 at 18:00; Stop 10/20/15 at 09:44; Status DC Enoxaparin Sodium (Lovenox Inj) 30 mg Q12H SQ Last administered on 10/21/15at 16 :53; Start 10/13/15 at 16:00; Stop 10/21/15 at 17:21; Status DC Sodium Chloride 1,000 ml @ 50 mls/hr Q20H IV Last administered on 10/14/15at 10 :56; Start 10/13/15 at 16:55; Stop 10/14/15 at 15:44; Status DC Pantoprazole Sodium (Protonix) 40 mg DAILY PO Last administered on 11/11/15at 08 :49; Start 10/17/15 at 09:00; Stop 11/11/15 at 09:28; Status DC Polyethylene Glycol (Miralax) 17 gm DAILY PO Last administered on 12/05/15at 08 :36; Start 10/18/15 at 10:00; Stop 12/14/15 at 13:02; Status DC Iron/Minerals/ Multivitamins (Flintstones Complete) 1 tab DAILY CHEW Last administered on 11/04/16 09:00; Start 10/20/15 at 16:45 Enoxaparin Sodium (Lovenox Inj) 60 mg Q12H SQ Last administered on 11/04/16 05 :37; Start 10/22/15 at 04:00 Nystatin (Mycostatin Powder) 1 applic BID TOPICAL Last administered on 23:03; Start 10/29/15 at 11:00; Stop 08/01/16 at 14:30; Status DC Levofloxacin/ Dextrose 150 ml @ 100 mls/hr Q24H IV Last administered on at 10:14; Start 10/30/15 at 09:00; Stop 11/07/15 at 16:00; Status DC Bisacodyl (Dulcolax Supp) 10 mg ONCE ONCE RECTAL Last administered on at 13:25; Start 11/03/15 at 11:15; Stop 11/03/15 at 11:17; Status DC Heparin Sodium (Porcine) (Heparin Inj) 10,000 units STK-MED ONCE .ROUTE ; Start 11/10/15 at 07:05; Stop 11/10/15 at 07:06; Status DC Thrombin (Thrombin Top Soln) 10,000 units STK-MED ONCE .ROUTE ; Start 11/10/15 at 07:05; Stop 11/10/15 at 07:06; Status DC Gelatin (Gelfoam 100 Top) 1 foam STK-MED ONCE .ROUTE ; Start 11/10/15 at 07:05; Stop 11/10/15 at 07:06; Status DC Lidocaine/ Epinephrine (Xylocaine-Epi 1%-1:100,000 Inj) 50 ml STK-MED ONCE .ROUTE ; Start 11/10/15 at 07:05; Stop 11/10/15 at 07:06; Status DC Gentamicin Sulfate (Gentamicin Inj) 240 mg STK-MED ONCE .ROUTE ; Start 11/10/15 at 07:05; Stop 11/10/15 at 07:06; Status DC Oxycodone HCl (Roxicodone) 10 mg Q3H PRN PO pain 1-5 Last administered on 19:04; Start 11/10/15 at 12:00 Oxycodone HCl (Roxicodone) 20 mg Q6H PRN PO pain 6-10 Last administered on 11/04 05:37; Start 11/10/15 at 12:00 Ranitidine HCl (Zantac) 150 mg Q12HR PO Last administered on 11/21/15at 19:54; Start 11/11/15 at 21:00; Stop 11/22/15 at 08:45; Status DC Hydromorphone HCl (Dilaudid) 4 mg Q4H PRN PO BREAKTHROUGH PAIN Last administered on 04/14/16 12:34; Start 11/18/15 at 08:30; Stop 08/15/16 at 08:45 ; Status DC Lactated Ringer's 1,000 ml @ 0 mls/hr Q24H IV ; Start 11/22/15 at 08:30; Stop 11/23/15 at 08:29; Status DC Bisacodyl (Dulcolax Ec) 10 mg DAILY PO ; Start 11/22/15 at 09:00; Stop 11/22/15 at 09:00; Status DC Bisacodyl (Dulcolax Supp) 10 mg DAILY RECTAL ; Start 11/22/15 at 09:00; Stop at 09:00; Status DC Bisacodyl (Dulcolax Ec) 10 mg DAILY PRN PO constipation Last administered on at 05:05; Start 11/23/15 at 09:00 Bisacodyl (Dulcolax Supp) 10 mg DAILY PRN RECTAL constipation; Start 11/23/15 at 09:00; Stop 01/06/16 at 18:38; Status DC Bisacodyl (Dulcolax Ec) 10 mg ONCE ONCE PO Last administered on 11/22/15at 09: 19; Start 11/22/15 at 08:00; Stop 11/22/15 at 08:07; Status DC Bisacodyl (Dulcolax Supp) 10 mg ONCE ONCE RECTAL ; Start 11/22/15 at 08:00; Stop 11/22/15 at 08:10; Status DC Famotidine (Pepcid) 20 mg Q12HR PO Last administered on 11/04/16 10:02; Start 11/22/15 at 09:00 Bisacodyl (Dulcolax Ec) 10 mg ONCE ONCE PO Last administered on 11/23/15at 09: 44; Start 11/23/15 at 08:00; Stop 11/23/15 at 08:01; Status DC Bisacodyl (Dulcolax Supp) 10 mg ONCE ONCE RECTAL ; Start 11/23/15 at 08:00; Stop 11/23/15 at 08:01; Status DC Sodium Biphosphate/ Sodium Phosphate (Fleets Enema (Adult)) 133 ml ONCE ONCE OK ; Start 11/24/15 at 08:00; Stop 11/24/15 at 08:06; Status DC Metoprolol Tartrate (Lopressor) 25 mg Q12HR PO Last administered on 11/04/16 10:03; Start 12/20/15 at 21:00 Senna/Docusate Sodium (Kristen-Colace) 2 tab BID PO Last administered on 05/03/16 08:42; Start 01/06/16 at 21:00; Stop 07/12/16 at 08:33; Status DC Senna/Docusate Sodium (Kristen-Colace) 2 tab BID PRN PO CONSTIPATION Last administered on 03/03/16 16:04; Start 01/06/16 at 18:15; Stop 04/26/16 at 15:44 ; Status DC Lactulose (Lactulose Liq) 30 ml TID PRN PO CONSTIPATION Last administered on 04:58; Start 01/06/16 at 18:15; Stop 07/12/16 at 08:33; Status DC Bisacodyl (Dulcolax Supp) 10 mg DAILY PRN OK CONSTIPATION; Start 01/06/16 at 18:15; Status Cancel Magnesium Hydroxide (Milk Of Magnesia Liq) 30 ml Q6H PRN PO CONSTIPATION Last administered on 02/16/16at 07:57; Start 01/06/16 at 18:15; Stop 04/26/16 at 15: 44; Status DC Simethicone (Phazyme Chew) 125 mg Q8HR PO Last administered on 01/08/16at 04:08 ; Start 01/06/16 at 22:00; Stop 01/08/16 at 10:16; Status DC Simethicone (Phazyme Chew) 125 mg Q8HR PRN PO GAS/BLOATING Last administered on 10/20/16 08:55; Start 01/08/16 at 10:15; Stop 11/02/16 at 16:21; Status DC Polyethylene Glycol (Miralax) 17 gm DAILY PRN PO CONSTIPATION Last administered on 01/08/16at 10:27; Start 01/08/16 at 10:15; Stop 02/04/16 at 13 :58; Status DC Multi-Ingredient Ointment (Eucerin Cream) 1 applic DAILY TOPICAL Last administered on 01/19/16at 09:12; Start 01/14/16 at 09:00; Stop 01/20/16 at 08 :59; Status DC Calcium/Vitamin D (Oscal-D 250-125) 250 mg Q12HR PO Last administered on 10:02; Start 01/16/16 at 09:00 Ergocalciferol (Drisdol) 50,000 units Q7D PO Last administered on 10/29/16 08: 55; Start 01/16/16 at 09:00 Polyethylene Glycol (Miralax) 17 gm DAILY PO Last administered on 02/16/16 07 :57; Start 02/05/16 at 09:00; Stop 02/29/16 at 14:03; Status DC Emollient Ointment (Aquaphor Oint) 1 applic HS TOP Last administered on 23:03; Start 02/17/16 at 21:00; Stop 08/01/16 at 14:30; Status DC Carisoprodol (Soma) 350 mg Q8H PRN PO muscle spasm Last administered on 05:36; Start 02/24/16 at 23:30 Carisoprodol (Soma) 350 mg ONCE ONCE PO Last administered on 02/24/16at 15:47 ; Start 02/24/16 at 15:30; Stop 02/24/16 at 15:31; Status DC Polyethylene Glycol (Miralax) 17 gm DAILY PRN PO constipation; Start 02/29/16 at 14:15; Stop 04/26/16 at 15:44; Status DC Artificial Tears (Tears Naturale Opth Soln) 1 drop TID PRN EACH EYE DRY EYE Last administered on 03/11/16 09:03; Start 03/03/16 at 13:30; Stop 11/02/16 at 16 :21; Status DC Polyethylene Glycol (Miralax) 17 gm ONCE ONCE PO Last administered on 12:44; Start 03/04/16 at 12:30; Stop 03/04/16 at 12:31; Status DC Enalaprilat (Vasotec Inj) 1.25 mg Q6H PRN IV SBP> OR = 180, DBP> OR = 100; Start 03/25/16 at 09:30 Clonidine (Catapres) 0.1 mg Q6H PRN PO SBP> OR = 180, DBP> OR = 100; Start at 09:30; Stop 11/02/16 at 16:21; Status DC Lactic Acid (Lac-Hydrin 12% Lotion) 1 applic BID TOPICAL Last administered on 09:00; Start 03/30/16 at 15:00; Stop 06/11/16 at 11:47; Status DC Psyllium Hydrophilic Mucilloid (Metamucil Smooth Texture Sf/ Gf Pkt) 1 pkt TID PO Last administered on 07/18/16 17:34; Start 04/26/16 at 18:00; Stop 08/01/16 at 14:31; Status DC Polyethylene Glycol (Miralax) 17 gm HS PO ; Start 04/26/16 at 21:00; Stop at 14:30; Status DC Bupropion HCl (Wellbutrin) 75 mg Q12HR PO Last administered on 07/11/16 09:55 ; Start 05/02/16 at 21:00; Stop 07/11/16 at 13:51; Status DC Lactobacillus Acidophilus (Lactinex) 1 tab ONCE ONCE PO Last administered on 16:33; Start 05/03/16 at 14:00; Stop 05/03/16 at 14:01; Status DC Lactobacillus Acidophilus (Lactinex) 1 tab Q12HR PO Last administered on 09:53; Start 05/03/16 at 21:00; Stop 05/09/16 at 14:24; Status DC Loperamide HCl (Imodium) 2 mg Q6H PRN PO DIARRHEA Last administered on 00:51; Start 05/03/16 at 14:00; Stop 05/06/16 at 09:47; Status DC Potassium Chloride (KCl) 20 meq ONCE ONCE PO Last administered on 05/04/16 11 :16; Start 05/04/16 at 11:00; Stop 05/04/16 at 11:01; Status DC Metronidazole (Flagyl) 500 mg Q8H PO Last administered on 05/19/16 23:51; Start 05/06/16 at 08:00; Stop 05/20/16 at 07:59; Status DC Lactobacillus Acidophilus (Lactinex) 1 tab DAILY PO Last administered on 12:33; Start 05/10/16 at 09:00; Stop 05/11/16 at 13:25; Status DC Lactobacillus Acidophilus (Lactinex) 1 tab BID PO ; Start 05/11/16 at 21:00; Stop 05/11/16 at 21:00; Status DC Lactobacillus Acidophilus (Lactinex) 1 tab DAILY PO Last administered on 13:25; Start 05/12/16 at 09:00; Stop 05/13/16 at 09:11; Status DC Lactobacillus Acidophilus (Lactinex) 1 tab DAILY PO Last administered on 09:22; Start 05/14/16 at 09:30; Stop 05/20/16 at 11:24; Status DC Meclizine HCl (Antivert) 25 mg ONCE ONCE PO Last administered on 05/14/16 10: 57; Start 05/14/16 at 09:30; Stop 05/14/16 at 09:51; Status DC Meclizine HCl (Antivert) 25 mg Q8H PRN PO DIZZINESS; Start 05/14/16 at 09:30; Status Cancel Lactobacillus Acidophilus (Lactinex) 1 tab DAILY PRN PO diarrhea ; Start at 18:15; Stop 06/05/16 at 09:01; Status DC Lactobacillus Acidophilus (Lactinex) 1 tab TID PO Last administered on 10:03; Start 05/20/16 at 13:00 Loperamide HCl (Imodium) 2 mg Q6H PRN PO DIARRHEA Last administered on 09:46; Start 05/21/16 at 09:00; Stop 06/27/16 at 10:44; Status DC Diphenoxylate HCl/ Atropine (Lomotil Tab) 2 tab Q8H PRN PO SEVERE DIARRHEA Last administered on 05/28/16 16:32; Start 05/28/16 at 13:15; Stop 07/04/16 at 12 :46; Status DC Metronidazole (Flagyl) 500 mg Q8H PO Last administered on 06/01/16 09:04; Start 05/31/16 at 17:00; Stop 06/01/16 at 16:48; Status DC Metronidazole (Flagyl) 500 mg Q6H PO Last administered on 06/13/16 19:53; Start 06/01/16 at 21:00; Stop 06/13/16 at 23:00; Status DC Lactic Acid (Lac-Hydrin 12% Lotion) 1 applic BID TOPICAL Last administered on 23:03; Start 06/11/16 at 12:00; Stop 08/01/16 at 14:30; Status DC Cholestyramine Resin (Questran 4 Gm Pkt) 4 gm ONCE ONCE PO Last administered on 06/15/16 14:00; Start 06/15/16 at 14:00; Stop 06/15/16 at 14:03; Status DC Cholestyramine Resin (Questran 4 Gm Pkt) 4 gm Q8HR PRN PO DIARRHEA Last administered on 06/26/16 08:01; Start 06/15/16 at 14:00; Stop 11/02/16 at 16:21; Status DC Loperamide HCl (Imodium) 2 mg Q6H PRN PO DIARRHEA Last administered on 10:17; Start 06/26/16 at 12:30; Stop 06/27/16 at 10:44; Status DC Loperamide HCl (Imodium) 2 mg Q4H PRN PO DIARRHEA Last administered on 05:37; Start 06/27/16 at 10:45; Stop 07/12/16 at 08:33; Status DC Diphenoxylate HCl/ Atropine (Lomotil Tab) 1 tab ONCE ONCE PO Last administered on 07/04/16 16:10; Start 07/04/16 at 12:45; Stop 07/04/16 at 12:53 ; Status DC Ondansetron HCl (Zofran Odt) 4 mg Q6H PRN PO NAUSEA OR VOMITING Last administered on 08/21/16 20:54; Start 07/05/16 at 14:00 Diatrizoate Meglum/ Diatrizoate Sod ( Gastroview Liq) 18 ml ONCE ONCE PO ; Start 07/05/16 at 19:00; Stop 07/05/16 at 19:01; Status DC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
[2016-11-04 12:00] VITALS: BP 128/74; PULSE 63; RESP 17; TEMP 95.4; O2SAT 99
[2016-11-04 16:00] VITALS: BP 97/61; PULSE 67; RESP 17; TEMP 95.3; O2SAT 99
[2016-11-04 19:00] VITALS: BP 125/58; PULSE 71; RESP 18; TEMP 97.1; O2SAT 98
[2016-11-05] VITALS: BP 131/69; PULSE 72; RESP 18; TEMP 98.7; O2SAT 97
[2016-11-05] MEDS: ENOXAPARIN SODIUM 60 MG/0.6 ML SYRINGE SQ SCH ×2 (06:14→14:28)
[2016-11-05] MEDS: CARISOPRODOL 350 MG TAB PO PRN ×3 (06:15→22:15)
[2016-11-05 08:00] VITALS: BP 105/65; PULSE 58; RESP 16; TEMP 96.8; O2SAT 99
[2016-11-05] MEDS: HYDROCORTISONE 0.5% CREAM 30 GM TOPICAL SCH ×3 (08:00→22:17)
[2016-11-05] MEDS: NYSTATIN 100,000 U/GM OINT 15 GM TUBE TOPICAL SCH ×2 (09:00→21:00)
[2016-11-05] MEDS: NEOMYCIN/POLYMYXIN/BACITRACIN OINT 15 GM TUBE TOPICAL SCH ×2 (09:00→21:00)
[2016-11-05] MEDS: MUPIROCIN 2% OINT 22 GM TUBE TOPICAL SCH ×2 (09:00→21:00)
[2016-11-05] MEDS: LACTIC ACID (AMMONIUM LACTATE) 12% LOTION 225 GM BTL TOPICAL SCH ×2 (09:00→21:00)
[2016-11-05] MEDS: MULTIVITAMINS/IRON/MINERALS CHEWABLE TAB CHEW SCH (09:00)
[2016-11-05] MEDS: METOPROLOL TARTRATE 25 MG TAB PO SCH ×2 (09:00→22:15)
[2016-11-05] MEDS: FERROUS SULFATE 325 MG (65 MG ELEMENTAL IRON) TAB PO SCH ×3 (10:33→17:32)
[2016-11-05] MEDS: ASCORBIC ACID 500 MG TAB PO SCH ×3 (10:33→17:32)
[2016-11-05] MEDS: LACTOBACILLUS ACIDOPHILUS TAB PO SCH ×3 (10:33→17:32)
[2016-11-05] MEDS: buPROPion HCL 100 MG TAB PO SCH ×2 (10:33→22:15)
[2016-11-05] MEDS: ERGOCALCIFEROL (VIT D2) 50,000 UNIT CAP PO SCH (10:33)
[2016-11-05] MEDS: FAMOTIDINE 20 MG TAB PO SCH ×2 (10:33→22:15)
[2016-11-05] MEDS: CALCIUM/VITAMIN D 250 MG/125 U TAB PO SCH ×2 (10:33→22:15)
--- NOTE | 2016-11-05 11:09 | HHI.PR ---
Subjective Remarks Follow-up for placement Patient has no complaints. He stated that he just woke up. Patient remains afebrile. Objective Vitals Vital Signs Date Time Temp Pulse Resp B/P (MAP) Pulse Ox O2 Delivery O2 Flow Rate FiO2 11/05/16 08:00 96.8 58 16 105/65 (78) 99 11/05/16 00:00 98.7 72 18 131/69 (89) 97 11/04/16 19:00 97.1 71 18 125/58 (80) 98 11/04/16 16:00 95.3 67 17 97/61 (73) 99 11/04/16 12:00 95.4 63 17 128/74 (92) 99 I/O 11/04/16 11/04/16 11/04/16 11/05/16 11/05/16 11/05/16 07:00 15:00 23:00 07:00 15:00 23:00 Intake Total 360 ml 700 ml 480 ml Output Total 630 ml 650 ml Balance 360 ml 70 ml -170 ml Intake Oral 360 ml 700 ml 480 ml Output Urine Total 630 ml 650 ml # Voids 3 # Bowel Movements 1 0 Result Diagram: 11/04/16 0708 11/04/16 0708 Objective Remarks ENERAL: Pt encountered laying a bed, food in front of him, friend in room. Not in acute distress. SKIN: Warm and dry. Tattoos noted. Feet edematous and evidencing xeroderma; less xeroderma present on right foot and now on left foot. Left thigh wound covered with bandage, wound noted to be improved. Laceration noted yesterday on left thigh appears continues to heal. No signs of infection. HEAD: Normocephalic. EYES: No scleral icterus. NECK: Supple, trachea midline. No lymphadenopathy. CARDIOVASCULAR: Regular rate and rhythm without murmurs, gallops, or rubs. RESPIRATORY: Breath sounds equal bilaterally. No accessory muscle use. GASTROINTESTINAL: Abdomen soft, obese, non-tender, nondistended. Bowel sounds active in all quadrants. Procedures Urinary catheter changed 08/18/16 sp IVC filter placement 09/2015 Pt reported urinary catheter removed 10/15/16. Medications and IVs Current Medications Hydromorphone HCl (Dilaudid Pf Inj) 1 mg Q4H PRN IV PAIN 1-5; Start 10/07/15 at 22:30; Stop 10/20/15 at 09:44; Status DC Hydromorphone HCl (Dilaudid Pf Inj) 2 mg Q4H PRN IV BREAKTHROUGH PAIN Last administered on 11/17/15at 04:25; Start 10/07/15 at 22:30; Stop 11/17/15 at 08:28 ; Status DC Pantoprazole Sodium (Protonix Inj) 40 mg DAILY IV PUSH Last administered on at 10:57; Start 10/08/15 at 09:00; Stop 10/16/15 at 16:20; Status DC Acetaminophen/ Hydrocodone Bitart (Hebo 5-325 Mg) 1 tab Q4H PRN PO PAIN 1-5 IF TOLERATING PO MEDS Last administered on 10/11/15at 05:52; Start 10/10/15 at 16 :00; Stop 10/11/15 at 17:10; Status DC Acetaminophen/ Hydrocodone Bitart (Hebo 5-325 Mg) 2 tab Q4H PRN PO PAIN 6-10 IF TOLERATING PO MED Last administered on 10/11/15at 01:35; Start 10/10/15 at 16: 00; Stop 10/11/15 at 17:10; Status DC Lactated Ringer's 1,000 ml @ 0 mls/hr Q24H IV Last administered on 10/11/15at 08:00; Start 10/11/15 at 08:00; Stop 10/11/15 at 23:15; Status DC Sodium Chloride 500 ml @ 0 mls/hr Q24H IV ; Start 10/11/15 at 08:00; Stop at 23:15; Status DC Insulin Human Regular (NovoLIN R INJ) See Protocol Table ... UNSCH X1 PRN SQ SEE PROTOCOL; Start 10/11/15 at 08:00; Stop 10/11/15 at 23:15; Status DC Metoprolol Tartrate (Lopressor) 25 mg UNSCH X1 PRN PO SEE LABEL COMMENTS; Start 10/11/15 at 08:00; Stop 10/11/15 at 23:15; Status DC Fentanyl Citrate (Sublimaze Inj) 250 mcg STK-MED ONCE .ROUTE Last administered on 10/11/15at 09:45; Start 10/11/15 at 09:13; Stop 10/11/15 at 09:14; Status DC Iohexol (Omnipaque 350 Inj) 20 ml STK-MED ONCE IV Last administered on at 10:44; Start 10/11/15 at 10:44; Stop 10/11/15 at 10:45; Status DC Gentamicin Sulfate (Gentamicin Inj) 240 mg STK-MED ONCE .ROUTE Last administered on 10/11/15at 14:24; Start 10/11/15 at 12:02; Stop 10/11/15 at 12:03 ; Status DC Cefazolin Sodium/ Dextrose 50 ml @ As Directed STK-MED ONCE .ROUTE Last administered on 10/11/15at 14:10; Start 10/11/15 at 12:03; Stop 10/11/15 at 12:04 ; Status DC Sodium Chloride 250 ml @ As Directed STK-MED ONCE .ROUTE ; Start 10/11/15 at 12 :03; Stop 10/11/15 at 12:04; Status DC Vancomycin HCl (Vancomycin Inj) 1,000 mg STK-MED ONCE .ROUTE Last administered on 10/11/15at 14:10; Start 10/11/15 at 12:03; Stop 10/11/15 at 12:04; Status DC Ranitidine HCl (Zantac Inj) 50 mg STK-MED ONCE .ROUTE Last administered on 10/10at 12:53; Start 10/11/15 at 12:53; Stop 10/11/15 at 12:54; Status DC Ketamine HCl (Ketalar Inj) 500 mg STK-MED ONCE .ROUTE ; Start 10/11/15 at 13:05 ; Stop 10/11/15 at 13:06; Status DC Tranexamic Acid 2000 mg/Sodium Chloride 120 ml @ 240 mls/hr UNSCH IV Last administered on 10/11/15at 14:18; Start 10/11/15 at 13:15; Stop 10/12/15 at 16:00 ; Status DC Sugammadex Sodium (Bridion Inj) 600 mg STK-MED ONCE IV PUSH ; Start 10/11/15 at 13:14; Stop 10/11/15 at 13:15; Status DC Sodium Chloride 250 ml @ As Directed STK-MED ONCE .ROUTE ; Start 10/11/15 at 14 :08; Stop 10/11/15 at 14:09; Status DC Vancomycin HCl (Vancomycin Inj) 1,000 mg STK-MED ONCE .ROUTE Last administered on 10/11/15at 14:10; Start 10/11/15 at 14:08; Stop 10/11/15 at 14:09; Status DC Acetaminophen (Ofirmev Inj) 1,000 mg STK-MED ONCE IV ; Start 10/11/15 at 15:25; Stop 10/11/15 at 15:26; Status DC Lactated Ringer's 1,000 ml @ 80 mls/hr [id number] IV Last administered on at 17:40; Start 10/11/15 at 17:00; Stop 10/12/15 at 07:31; Status DC IV Flush (NS Flush) 2 ml UNSCH PRN IVF FLUSH AFTER USING IV ACCESS; Start 10/10 at 16:00; Stop 10/11/15 at 23:15; Status DC IV Flush (NS Flush) 2 ml BID IVF Last administered on 10/11/15at 22:00; Start at 21:00; Stop 10/11/15 at 23:15; Status DC Miscellaneous Information (Post-op Orders (for Pharmacy)) STAT ONCE XX ; Start 10/11/15 at 16:00; Stop 10/11/15 at 17:40; Status DC Enoxaparin Sodium (Lovenox Inj) 40 mg Q12H SQ ; Start 10/12/15 at 16:00; Stop at 16:00; Status DC Senna/Docusate Sodium (Kristen-Colace) 1 tab BID PO Last administered on at 08:59; Start 10/11/15 at 21:00; Stop 01/06/16 at 18:39; Status DC Cefazolin Sodium/ Dextrose 50 ml @ 100 mls/hr Q8H IV ; Start 10/11/15 at 22:00 ; Stop 10/11/15 at 22:00; Status DC Vancomycin HCl 1000 mg/Sodium Chloride 250 ml @ 250 mls/hr Q12H IV Last administered on 10/13/15at 14:11; Start 10/12/15 at 02:00; Stop 10/13/15 at 14:59 ; Status DC Miscellaneous Information UNSCH PRN XX SEE LABEL COMMENTS; Start 10/11/15 at 16:00 Miscellaneous Medication ([facility] Information) ONCE ONCE XX ; Start at 16:00; Stop 10/11/15 at 17:11; Status DC Acetaminophen/ Hydrocodone Bitart (Hebo 10-325 Mg) 1 tab Q3H PRN PO PAIN LESS THAN 5 ON SCALE Last administered on 10/19/15at 08:22; Start 10/11/15 at 16:00; Stop 11/10/15 at 11:22; Status DC Acetaminophen/ Hydrocodone Bitart (Hebo 10-325 Mg) 2 tab Q6H PRN PO PAIN GREATER THAN/EQUAL TO 5 Last administered on 11/10/15at 10:12; Start 10/11/15 at 16:00; Stop 11/10/15 at 11:22; Status DC Ondansetron HCl (Zofran Inj) 4 mg Q4H PRN IVP NAUSEA OR VOMITING; Start at 16:00; Stop 10/11/15 at 23:15; Status DC Diphenhydramine HCl (Benadryl) 25 mg Q6H PRN PO ITCHING Last administered on t 08:35; Start 10/11/15 at 16:00 Naloxone HCl (Narcan Inj) 0.4 mg UNSCH PRN IV RESPIRATORY RATE LESS THAN 10; Start 10/11/15 at 16:00 Morphine Sulfate (Morphine 1 Mg/ ml SEMIC[employer] EQUIPMENT TECHNICIAN) 30 mg UNSCH IV Last administered on at 17:40; Start 10/11/15 at 16:00; Stop 10/13/15 at 15:59; Status DC SEMICONDUCTOR EQUIPMENT TECHNICIAN Dosage Infused (Pha) 1 Q8HR .XX Last administered on 10/12/15at 20:42; Start 10/11/15 at 22:00; Stop 10/13/15 at 13:59; Status DC Morphine Sulfate (Morphine Inj) 4 mg Q3H PRN IV PUSH break thru pain; Start at 16:00; Stop 10/20/15 at 09:44; Status DC Cefazolin Sodium/ Dextrose 50 ml @ 100 mls/hr Q8H IV Last administered on 10/12at 14:11; Start 10/11/15 at 21:00; Stop 10/13/15 at 13:29; Status DC Propofol 100 ml @ As Directed STK-MED ONCE .ROUTE Last administered on at 17:11; Start 10/11/15 at 17:11; Stop 10/11/15 at 17:12; Status DC Midazolam HCl (Versed Inj) 2 mg STK-MED ONCE .ROUTE ; Start 10/11/15 at 17:35; Stop 10/11/15 at 17:36; Status DC Midazolam HCl (Versed Inj) 2 mg STK-MED ONCE .ROUTE ; Start 10/11/15 at 17:35; Stop 10/11/15 at 17:36; Status DC Fentanyl Citrate (Sublimaze Inj) 500 mcg STK-MED ONCE .ROUTE ; Start 10/11/15 at 17:35; Stop 10/11/15 at 17:36; Status DC Miscellaneous Information ALL NURSING DEPARTME... UNSCH PRN XX SEE LABEL COMMENTS; Start 10/11/15 at 17:45; Stop 10/12/15 at 17:44; Status DC Morphine Sulfate (*morphine INJ PERIprocedure ONLY) 8 mg STK-MED ONCE .ROUTE Last administered on 10/11/15at 17:46; Start 10/11/15 at 17:46; Stop 10/11/15 at 17:47; Status DC Propofol 100 ml @ As Directed STK-MED ONCE .ROUTE Last administered on at 18:38; Start 10/11/15 at 18:38; Stop 10/11/15 at 18:39; Status DC Morphine Sulfate (*morphine INJ PERIprocedure ONLY) 8 mg STK-MED ONCE .ROUTE Last administered on 10/11/15at 18:39; Start 10/11/15 at 18:39; Stop 10/11/15 at 18:40; Status DC Morphine Sulfate (*morphine INJ PERIprocedure ONLY) 8 mg STK-MED ONCE .ROUTE Last administered on 10/11/15at 19:02; Start 10/11/15 at 19:02; Stop 10/11/15 at 19:03; Status DC Morphine Sulfate (*morphine INJ PERIprocedure ONLY) 8 mg STK-MED ONCE .ROUTE ; Start 10/11/15 at 19:04; Stop 10/11/15 at 19:05; Status DC Propofol 100 ml @ As Directed STK-MED ONCE .ROUTE Last administered on at 19:49; Start 10/11/15 at 19:49; Stop 10/11/15 at 19:50; Status DC Hydromorphone HCl (*DILAUDID PF INJ PERIprocedural ONLY) 1 mg STK-MED ONCE .ROUTE Last administered on 10/11/15at 20:52; Start 10/11/15 at 20:52; Stop at 20:53; Status DC Propofol 100 ml @ As Directed STK-MED ONCE .ROUTE Last administered on at 21:05; Start 10/11/15 at 21:05; Stop 10/11/15 at 21:06; Status DC Propofol 100 ml @ As Directed STK-MED ONCE .ROUTE ; Start 10/11/15 at 22:20; Stop 10/11/15 at 22:21; Status DC IV Flush (NS Flush) 2 ml UNSCH PRN IVF FLUSH AFTER USING IV ACCESS Last administered on 11/17/15at 04:24; Start 10/11/15 at 23:15; Stop 12/06/15 at 12: 30; Status DC IV Flush (NS Flush) 2 ml BID IVF Last administered on 12/05/15at 08:36; Start 10/12/15 at 09:00; Stop 12/06/15 at 12:30; Status DC Artificial Tears (Tears Naturale Opth Soln) 1 drop TID EACH EYE Last administered on 03/02/16t 16:41; Start 10/12/15 at 09:00; Stop 03/03/16 at 13:29; Status DC Ondansetron HCl (Zofran Inj) 4 mg Q6H PRN IV NAUSEA OR VOMITING Last administered on 11/24/15at 12:05; Start 10/11/15 at 23:15; Stop 07/05/16 at 13:53 ; Status DC Albuterol/ Ipratropium (Duoneb Neb) 1 ampule Q4HR NEB PRN INH WHEEZING; Start 10/11/15 at 23:15; Status Cancel Miscellaneous Information 1 [id number] XX Last administered on 10/11/15at 23:15; Start 10/11/15 at 23:15; Stop 02/02/16 at 12:06; Status DC Chlorhexidine Gluconate (Chlorhexidine 2% Cloth) Taper DAILY@04 TOP Last administered on 10/17/15at 05:00; Start 10/12/15 at 04:00; Stop 02/02/16 at 12:06 ; Status DC Chlorhexidine Gluconate (Chlorhexidine 2% Cloth) 3 pack UNSCH PRN TOP HYGIENIC CARE; Start 10/11/15 at 23:15; Stop 02/02/16 at 12:06; Status DC Chlorhexidine Gluconate (Peridex 0.12% Liq) 15 ml BID@08,20 MT Last administered on 11/01/15at 07:56; Start 10/12/15 at 08:00; Stop 11/11/15 at 09:28 ; Status DC Propofol 100 ml @ 0 mls/hr TITRATE IV Last administered on 10/12/15at 07:38; Start 10/11/15 at 23:15; Stop 10/13/15 at 15:51; Status DC Dexmedetomidine HCl 50 ml @ 0 mls/hr TITRATE IV Last administered on 10/12/15at 12:38; Start 10/12/15 at 07:30; Stop 10/12/15 at 08:59; Status DC Bumetanide (Bumetanide Inj) 2 mg ONCE ONCE IV PUSH Last administered on at 08:24; Start 10/12/15 at 07:30; Stop 10/12/15 at 08:08; Status DC Potassium Chloride (KCl 40 Meq/30 ml Liq) 40 meq ONCE ONCE PO ; Start 10/12/15 at 07:30; Stop 10/12/15 at 08:08; Status DC Piperacillin Sod/ Tazobactam Sod 100 ml @ 200 mls/hr Q6H IV Last administered on 10/13/15at 09:42; Start 10/12/15 at 10:00; Stop 10/13/15 at 15:50; Status DC Albuterol/ Ipratropium (Duoneb Neb) 1 ampule Q4HR NEB NEB Last administered on 10/13/15at 11:55; Start 10/12/15 at 08:00; Stop 10/13/15 at 13:04; Status DC Dexmedetomidine HCl 1000 mcg/ Sodium Chloride 250 ml @ 0 mls/hr TITRATE IV Last administered on 10/12/15at 12:00; Start 10/12/15 at 09:00; Stop 10/13/15 at 15:50; Status DC Potassium Chloride 100 ml @ 50 mls/hr Q2H IV Last administered on 10/12/15at 12 :39; Start 10/12/15 at 10:00; Stop 10/12/15 at 13:59; Status DC Propofol (Diprivan 200 Mg/20 ml Inj) 400 mg STK-MED ONCE IV ; Start 10/11/15 at 11:24; Stop 10/12/15 at 11:25; Status DC Ondansetron HCl (Zofran Inj) 4 mg STK-MED ONCE IV PUSH ; Start 10/11/15 at 11:24 ; Stop 10/12/15 at 11:25; Status DC Lactated Ringer's 1,000 ml @ As Directed STK-MED ONCE IV ; Start 10/11/15 at 11 :24; Stop 10/12/15 at 11:25; Status DC Sodium Chloride 250 ml @ As Directed STK-MED ONCE IV ; Start 10/11/15 at 11:24 ; Stop 10/12/15 at 11:25; Status DC Parenteral Electrolytes 3,000 ml @ As Directed STK-MED ONCE IV ; Start at 11:24; Stop 10/12/15 at 11:25; Status DC Mupirocin (Bactroban Nasal 2% Oint) 1 applic BID EACH NARE Last administered on 10/19/15at 08:22; Start 10/12/15 at 14:45; Stop 10/22/15 at 14:44; Status DC Enoxaparin Sodium (Lovenox Inj) 60 mg Q12H SQ Last administered on 10/13/15at 04 :15; Start 10/12/15 at 16:00; Stop 10/13/15 at 15:50; Status DC Albuterol/ Ipratropium (Duoneb Neb) 1 ampule Q6HR NEB NEB Last administered on 10/17/15at 15:45; Start 10/13/15 at 16:00; Stop 10/17/15 at 16:00; Status DC Sodium Chloride 1,000 ml @ 999 mls/hr Q1H1M IV ; Start 10/13/15 at 15:45; Stop 10/13/15 at 16:45; Status DC Sodium Chloride 1,000 ml @ 100 mls/hr Q10H IV ; Start 10/13/15 at 15:45; Stop 10/13/15 at 16:57; Status DC Piperacillin Sod/ Tazobactam Sod 100 ml @ 200 mls/hr Q8H IV Last administered on 10/20/15at 08:08; Start 10/13/15 at 18:00; Stop 10/20/15 at 09:44; Status DC Enoxaparin Sodium (Lovenox Inj) 30 mg Q12H SQ Last administered on 10/21/15at 16 :53; Start 10/13/15 at 16:00; Stop 10/21/15 at 17:21; Status DC Sodium Chloride 1,000 ml @ 50 mls/hr Q20H IV Last administered on 10/14/15at 10 :56; Start 10/13/15 at 16:55; Stop 10/14/15 at 15:44; Status DC Pantoprazole Sodium (Protonix) 40 mg DAILY PO Last administered on 11/11/15at 08 :49; Start 10/17/15 at 09:00; Stop 11/11/15 at 09:28; Status DC Polyethylene Glycol (Miralax) 17 gm DAILY PO Last administered on 12/05/15at 08 :36; Start 10/18/15 at 10:00; Stop 12/14/15 at 13:02; Status DC Iron/Minerals/ Multivitamins (Flintstones Complete) 1 tab DAILY CHEW Last administered on 11/05/16 09:00; Start 10/20/15 at 16:45 Enoxaparin Sodium (Lovenox Inj) 60 mg Q12H SQ Last administered on 11/05/16 06 :14; Start 10/22/15 at 04:00 Nystatin (Mycostatin Powder) 1 applic BID TOPICAL Last administered on 23:03; Start 10/29/15 at 11:00; Stop 08/01/16 at 14:30; Status DC Levofloxacin/ Dextrose 150 ml @ 100 mls/hr Q24H IV Last administered on at 10:14; Start 10/30/15 at 09:00; Stop 11/07/15 at 16:00; Status DC Bisacodyl (Dulcolax Supp) 10 mg ONCE ONCE RECTAL Last administered on at 13:25; Start 11/03/15 at 11:15; Stop 11/03/15 at 11:17; Status DC Heparin Sodium (Porcine) (Heparin Inj) 10,000 units STK-MED ONCE .ROUTE ; Start 11/10/15 at 07:05; Stop 11/10/15 at 07:06; Status DC Thrombin (Thrombin Top Soln) 10,000 units STK-MED ONCE .ROUTE ; Start 11/10/15 at 07:05; Stop 11/10/15 at 07:06; Status DC Gelatin (Gelfoam 100 Top) 1 foam STK-MED ONCE .ROUTE ; Start 11/10/15 at 07:05; Stop 11/10/15 at 07:06; Status DC Lidocaine/ Epinephrine (Xylocaine-Epi 1%-1:100,000 Inj) 50 ml STK-MED ONCE .ROUTE ; Start 11/10/15 at 07:05; Stop 11/10/15 at 07:06; Status DC Gentamicin Sulfate (Gentamicin Inj) 240 mg STK-MED ONCE .ROUTE ; Start 11/10/15 at 07:05; Stop 11/10/15 at 07:06; Status DC Oxycodone HCl (Roxicodone) 10 mg Q3H PRN PO pain 1-5 Last administered on 19:04; Start 11/10/15 at 12:00 Oxycodone HCl (Roxicodone) 20 mg Q6H PRN PO pain 6-10 Last administered on 11/05 06:15; Start 11/10/15 at 12:00 Ranitidine HCl (Zantac) 150 mg Q12HR PO Last administered on 11/21/15at 19:54; Start 11/11/15 at 21:00; Stop 11/22/15 at 08:45; Status DC Hydromorphone HCl (Dilaudid) 4 mg Q4H PRN PO BREAKTHROUGH PAIN Last administered on 04/14/16 12:34; Start 11/18/15 at 08:30; Stop 08/15/16 at 08:45 ; Status DC Lactated Ringer's 1,000 ml @ 0 mls/hr Q24H IV ; Start 11/22/15 at 08:30; Stop 11/23/15 at 08:29; Status DC Bisacodyl (Dulcolax Ec) 10 mg DAILY PO ; Start 11/22/15 at 09:00; Stop 11/22/15 at 09:00; Status DC Bisacodyl (Dulcolax Supp) 10 mg DAILY RECTAL ; Start 11/22/15 at 09:00; Stop at 09:00; Status DC Bisacodyl (Dulcolax Ec) 10 mg DAILY PRN PO constipation Last administered on at 05:05; Start 11/23/15 at 09:00 Bisacodyl (Dulcolax Supp) 10 mg DAILY PRN RECTAL constipation; Start 11/23/15 at 09:00; Stop 01/06/16 at 18:38; Status DC Bisacodyl (Dulcolax Ec) 10 mg ONCE ONCE PO Last administered on 11/22/15at 09: 19; Start 11/22/15 at 08:00; Stop 11/22/15 at 08:07; Status DC Bisacodyl (Dulcolax Supp) 10 mg ONCE ONCE RECTAL ; Start 11/22/15 at 08:00; Stop 11/22/15 at 08:10; Status DC Famotidine (Pepcid) 20 mg Q12HR PO Last administered on 11/05/16 10:33; Start 11/22/15 at 09:00 Bisacodyl (Dulcolax Ec) 10 mg ONCE ONCE PO Last administered on 11/23/15at 09: 44; Start 11/23/15 at 08:00; Stop 11/23/15 at 08:01; Status DC Bisacodyl (Dulcolax Supp) 10 mg ONCE ONCE RECTAL ; Start 11/23/15 at 08:00; Stop 11/23/15 at 08:01; Status DC Sodium Biphosphate/ Sodium Phosphate (Fleets Enema (Adult)) 133 ml ONCE ONCE HI ; Start 11/24/15 at 08:00; Stop 11/24/15 at 08:06; Status DC Metoprolol Tartrate (Lopressor) 25 mg Q12HR PO Last administered on 11/04/16 21:01; Start 12/20/15 at 21:00 Senna/Docusate Sodium (Kristen-Colace) 2 tab BID PO Last administered on 05/03/16 08:42; Start 01/06/16 at 21:00; Stop 07/12/16 at 08:33; Status DC Senna/Docusate Sodium (Kristen-Colace) 2 tab BID PRN PO CONSTIPATION Last administered on 03/03/16 16:04; Start 01/06/16 at 18:15; Stop 04/26/16 at 15:44 ; Status DC Lactulose (Lactulose Liq) 30 ml TID PRN PO CONSTIPATION Last administered on 04:58; Start 01/06/16 at 18:15; Stop 07/12/16 at 08:33; Status DC Bisacodyl (Dulcolax Supp) 10 mg DAILY PRN HI CONSTIPATION; Start 01/06/16 at 18:15; Status Cancel Magnesium Hydroxide (Milk Of Magnesia Liq) 30 ml Q6H PRN PO CONSTIPATION Last administered on 02/16/16 07:57; Start 01/06/16 at 18:15; Stop 04/26/16 at 15: 44; Status DC Simethicone (Phazyme Chew) 125 mg Q8HR PO Last administered on 01/08/16 04:08 ; Start 01/06/16 at 22:00; Stop 01/08/16 at 10:16; Status DC Simethicone (Phazyme Chew) 125 mg Q8HR PRN PO GAS/BLOATING Last administered on 10/20/16 08:55; Start 01/08/16 at 10:15; Stop 11/02/16 at 16:21; Status DC Polyethylene Glycol (Miralax) 17 gm DAILY PRN PO CONSTIPATION Last administered on 01/08/16at 10:27; Start 01/08/16 at 10:15; Stop 02/04/16 at 13 :58; Status DC Multi-Ingredient Ointment (Eucerin Cream) 1 applic DAILY TOPICAL Last administered on 01/19/16at 09:12; Start 01/14/16 at 09:00; Stop 01/20/16 at 08 :59; Status DC Calcium/Vitamin D (Oscal-D 250-125) 250 mg Q12HR PO Last administered on 10:33; Start 01/16/16 at 09:00 Ergocalciferol (Drisdol) 50,000 units Q7D PO Last administered on 11/05/16 10: 33; Start 01/16/16 at 09:00 Polyethylene Glycol (Miralax) 17 gm DAILY PO Last administered on 02/16/16at 07 :57; Start 02/05/16 at 09:00; Stop 02/29/16 at 14:03; Status DC Emollient Ointment (Aquaphor Oint) 1 applic HS TOP Last administered on 23:03; Start 02/17/16 at 21:00; Stop 08/01/16 at 14:30; Status DC Carisoprodol (Soma) 350 mg Q8H PRN PO muscle spasm Last administered on 06:15; Start 02/24/16 at 23:30 Carisoprodol (Soma) 350 mg ONCE ONCE PO Last administered on 02/24/16at 15:47 ; Start 02/24/16 at 15:30; Stop 02/24/16 at 15:31; Status DC Polyethylene Glycol (Miralax) 17 gm DAILY PRN PO constipation; Start 02/29/16 at 14:15; Stop 04/26/16 at 15:44; Status DC Artificial Tears (Tears Naturale Opth Soln) 1 drop TID PRN EACH EYE DRY EYE Last administered on 03/11/16 09:03; Start 03/03/16 at 13:30; Stop 11/02/16 at 16 :21; Status DC Polyethylene Glycol (Miralax) 17 gm ONCE ONCE PO Last administered on 12:44; Start 03/04/16 at 12:30; Stop 03/04/16 at 12:31; Status DC Enalaprilat (Vasotec Inj) 1.25 mg Q6H PRN IV SBP> OR = 180, DBP> OR = 100; Start 03/25/16 at 09:30 Clonidine (Catapres) 0.1 mg Q6H PRN PO SBP> OR = 180, DBP> OR = 100; Start at 09:30; Stop 11/02/16 at 16:21; Status DC Lactic Acid (Lac-Hydrin 12% Lotion) 1 applic BID TOPICAL Last administered on 09:00; Start 03/30/16 at 15:00; Stop 06/11/16 at 11:47; Status DC Psyllium Hydrophilic Mucilloid (Metamucil Smooth Texture Sf/ Gf Pkt) 1 pkt TID PO Last administered on 07/18/16 17:34; Start 04/26/16 at 18:00; Stop 08/01/16 at 14:31; Status DC Polyethylene Glycol (Miralax) 17 gm HS PO ; Start 04/26/16 at 21:00; Stop at 14:30; Status DC Bupropion HCl (Wellbutrin) 75 mg Q12HR PO Last administered on 07/11/16 09:55 ; Start 05/02/16 at 21:00; Stop 07/11/16 at 13:51; Status DC Lactobacillus Acidophilus (Lactinex) 1 tab ONCE ONCE PO Last administered on 16:33; Start 05/03/16 at 14:00; Stop 05/03/16 at 14:01; Status DC Lactobacillus Acidophilus (Lactinex) 1 tab Q12HR PO Last administered on 09:53; Start 05/03/16 at 21:00; Stop 05/09/16 at 14:24; Status DC Loperamide HCl (Imodium) 2 mg Q6H PRN PO DIARRHEA Last administered on 00:51; Start 05/03/16 at 14:00; Stop 05/06/16 at 09:47; Status DC Potassium Chloride (KCl) 20 meq ONCE ONCE PO Last administered on 05/04/16 11 :16; Start 05/04/16 at 11:00; Stop 05/04/16 at 11:01; Status DC Metronidazole (Flagyl) 500 mg Q8H PO Last administered on 05/19/16 23:51; Start 05/06/16 at 08:00; Stop 05/20/16 at 07:59; Status DC Lactobacillus Acidophilus (Lactinex) 1 tab DAILY PO Last administered on 12:33; Start 05/10/16 at 09:00; Stop 05/11/16 at 13:25; Status DC Lactobacillus Acidophilus (Lactinex) 1 tab BID PO ; Start 05/11/16 at 21:00; Stop 05/11/16 at 21:00; Status DC Lactobacillus Acidophilus (Lactinex) 1 tab DAILY PO Last administered on 13:25; Start 05/12/16 at 09:00; Stop 05/13/16 at 09:11; Status DC Lactobacillus Acidophilus (Lactinex) 1 tab DAILY PO Last administered on 09:22; Start 05/14/16 at 09:30; Stop 05/20/16 at 11:24; Status DC Meclizine HCl (Antivert) 25 mg ONCE ONCE PO Last administered on 05/14/16 10: 57; Start 05/14/16 at 09:30; Stop 05/14/16 at 09:51; Status DC Meclizine HCl (Antivert) 25 mg Q8H PRN PO DIZZINESS; Start 05/14/16 at 09:30; Status Cancel Lactobacillus Acidophilus (Lactinex) 1 tab DAILY PRN PO diarrhea ; Start at 18:15; Stop 06/05/16 at 09:01; Status DC Lactobacillus Acidophilus (Lactinex) 1 tab TID PO Last administered on 10:33; Start 05/20/16 at 13:00 Loperamide HCl (Imodium) 2 mg Q6H PRN PO DIARRHEA Last administered on 09:46; Start 05/21/16 at 09:00; Stop 06/27/16 at 10:44; Status DC Diphenoxylate HCl/ Atropine (Lomotil Tab) 2 tab Q8H PRN PO SEVERE DIARRHEA Last administered on 05/28/16 16:32; Start 05/28/16 at 13:15; Stop 07/04/16 at 12 :46; Status DC Metronidazole (Flagyl) 500 mg Q8H PO Last administered on 06/01/16 09:04; Start 05/31/16 at 17:00; Stop 06/01/16 at 16:48; Status DC Metronidazole (Flagyl) 500 mg Q6H PO Last administered on 06/13/16 19:53; Start 06/01/16 at 21:00; Stop 06/13/16 at 23:00; Status DC Lactic Acid (Lac-Hydrin 12% Lotion) 1 applic BID TOPICAL Last administered on 23:03; Start 06/11/16 at 12:00; Stop 08/01/16 at 14:30; Status DC Cholestyramine Resin (Questran 4 Gm Pkt) 4 gm ONCE ONCE PO Last administered on 06/15/16 14:00; Start 06/15/16 at 14:00; Stop 06/15/16 at 14:03; Status DC Cholestyramine Resin (Questran 4 Gm Pkt) 4 gm Q8HR PRN PO DIARRHEA Last administered on 06/26/16 08:01; Start 06/15/16 at 14:00; Stop 11/02/16 at 16:21; Status DC Loperamide HCl (Imodium) 2 mg Q6H PRN PO DIARRHEA Last administered on 10:17; Start 06/26/16 at 12:30; Stop 06/27/16 at 10:44; Status DC Loperamide HCl (Imodium) 2 mg Q4H PRN PO DIARRHEA Last administered on 05:37; Start 06/27/16 at 10:45; Stop 07/12/16 at 08:33; Status DC Diphenoxylate HCl/ Atropine (Lomotil Tab) 1 tab ONCE ONCE PO Last administered on 07/04/16 16:10; Start 07/04/16 at 12:45; Stop 07/04/16 at 12:53 ; Status DC Ondansetron HCl (Zofran Odt) 4 mg Q6H PRN PO NAUSEA OR VOMITING Last administered on 08/21/16 20:54; Start 07/05/16 at 14:00 Diatrizoate Meglum/ Diatrizoate Sod ( Gastroview Liq) 18 ml ONCE ONCE PO ; Start 07/05/16 at 19:00; Stop 07/05/16 at 19:01; Status DC Diphenoxylate HCl/ Atropine (Lomotil Tab) 1 tab ONCE ONCE PO Last administered on 07/11/16 11:47; Start 07/11/16 at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
[2016-11-05 11:56] VITALS: BP 113/69; PULSE 62; RESP 20; TEMP 97.7; O2SAT 98
[2016-11-05 16:00] VITALS: BP 127/66; PULSE 70; RESP 16; TEMP 97.3; O2SAT 97
[2016-11-05 19:00] VITALS: BP 135/75; PULSE 75; RESP 18; TEMP 96.9; O2SAT 94
[2016-11-06] VITALS: BP 127/73; PULSE 71; RESP 18; TEMP 98.2; O2SAT 97
[2016-11-06] MEDS: CARISOPRODOL 350 MG TAB PO PRN ×3 (06:20→22:52)
[2016-11-06] MEDS: ENOXAPARIN SODIUM 60 MG/0.6 ML SYRINGE SQ SCH ×2 (06:20→14:44)
[2016-11-06 08:00] VITALS: BP 122/58; PULSE 69; RESP 18; TEMP 97.2; O2SAT 98
[2016-11-06] MEDS: LACTIC ACID (AMMONIUM LACTATE) 12% LOTION 225 GM BTL TOPICAL SCH ×2 (09:00→20:01)
[2016-11-06] MEDS: MULTIVITAMINS/IRON/MINERALS CHEWABLE TAB CHEW SCH (09:00)
[2016-11-06] MEDS: ASCORBIC ACID 500 MG TAB PO SCH ×3 (09:11→17:41)
[2016-11-06] MEDS: buPROPion HCL 100 MG TAB PO SCH ×2 (09:11→20:01)
[2016-11-06] MEDS: CALCIUM/VITAMIN D 250 MG/125 U TAB PO SCH ×2 (09:12→20:01)
[2016-11-06] MEDS: FAMOTIDINE 20 MG TAB PO SCH ×2 (09:12→20:01)
[2016-11-06] MEDS: METOPROLOL TARTRATE 25 MG TAB PO SCH ×2 (09:12→20:01)
[2016-11-06] MEDS: FERROUS SULFATE 325 MG (65 MG ELEMENTAL IRON) TAB PO SCH ×3 (09:12→17:41)
[2016-11-06] MEDS: LACTOBACILLUS ACIDOPHILUS TAB PO SCH ×3 (09:12→17:41)
[2016-11-06] MEDS: MUPIROCIN 2% OINT 22 GM TUBE TOPICAL SCH ×2 (09:13→20:01)
[2016-11-06] MEDS: NYSTATIN 100,000 U/GM OINT 15 GM TUBE TOPICAL SCH ×2 (09:13→20:01)
[2016-11-06] MEDS: NEOMYCIN/POLYMYXIN/BACITRACIN OINT 15 GM TUBE TOPICAL SCH ×2 (09:13→20:01)
[2016-11-06] MEDS: HYDROCORTISONE 0.5% CREAM 30 GM TOPICAL SCH ×2 (09:14→16:00)
[2016-11-06] MEDS: LORazepam 0.5 MG TAB PO PRN (10:30)
[2016-11-06 12:00] VITALS: BP 127/68; PULSE 73; RESP 19; TEMP 97.9; O2SAT 97
--- NOTE | 2016-11-06 14:28 | HHI.PR ---
Subjective Remarks Follow-up for placement. Patient has no complaints. Dealt with patient's nurse who also has no complaint. Objective Vitals Vital Signs Date Time Temp Pulse Resp B/P (MAP) Pulse Ox O2 Delivery O2 Flow Rate FiO2 11/06/16 12:00 97.9 73 19 127/68 (87) 97 11/06/16 08:00 97.2 69 18 122/58 (79) 98 11/06/16 00:00 98.2 71 18 127/73 (91) 97 11/05/16 19:00 96.9 75 18 135/75 (95) 94 11/05/16 16:00 97.3 70 16 127/66 (86) 97 I/O 11/05/16 11/05/16 11/05/16 11/06/16 11/06/16 11/06/16 07:00 15:00 23:00 07:00 15:00 23:00 Intake Total 480 ml 500 ml 480 ml Output Total 650 ml 700 ml 950 ml Balance -170 ml -200 ml -470 ml Intake Oral 480 ml 500 ml 480 ml Output Urine Total 650 ml 700 ml 950 ml # Bowel Movements 0 Result Diagram: 11/04/1608 11/04/16 0708 Objective Remarks ENERAL: Pt encountered laying a bed, food in front of him, friend in room. Not in acute distress. SKIN: Warm and dry. Tattoos noted. Feet edematous and evidencing xeroderma; less xeroderma present on right foot and now on left foot. Left thigh wound covered with bandage, wound noted to be improved. Laceration noted yesterday on left thigh appears continues to heal. No signs of infection. HEAD: Normocephalic. EYES: No scleral icterus. NECK: Supple, trachea midline. No lymphadenopathy. CARDIOVASCULAR: Regular rate and rhythm without murmurs, gallops, or rubs. RESPIRATORY: Breath sounds equal bilaterally. No accessory muscle use. GASTROINTESTINAL: Abdomen soft, obese, non-tender, nondistended. Bowel sounds active in all quadrants. Procedures Urinary catheter changed 08/18/16 sp IVC filter placement 09/2015 Pt reported urinary catheter removed 10/15/16. Medications and IVs Current Medications Hydromorphone HCl (Dilaudid Pf Inj) 1 mg Q4H PRN IV PAIN 1-5; Start 10/07/15 at 22:30; Stop 10/20/15 at 09:44; Status DC Hydromorphone HCl (Dilaudid Pf Inj) 2 mg Q4H PRN IV BREAKTHROUGH PAIN Last administered on 11/17/15at 04:25; Start 10/07/15 at 22:30; Stop 11/17/15 at 08:28 ; Status DC Pantoprazole Sodium (Protonix Inj) 40 mg DAILY IV PUSH Last administered on at 10:57; Start 10/08/15 at 09:00; Stop 10/16/15 at 16:20; Status DC Acetaminophen/ Hydrocodone Bitart ([place] 5-325 Mg) 1 tab Q4H PRN PO PAIN 1-5 IF TOLERATING PO MEDS Last administered on 10/11/15at 05:52; Start 10/10/15 at 16 :00; Stop 10/11/15 at 17:10; Status DC Acetaminophen/ Hydrocodone Bitart ([place] 5-325 Mg) 2 tab Q4H PRN PO PAIN 6-10 IF TOLERATING PO MED Last administered on 10/11/15at 01:35; Start 10/10/15 at 16: 00; Stop 10/11/15 at 17:10; Status DC Lactated Ringer's 1,000 ml @ 0 mls/hr Q24H IV Last administered on 10/11/15at 08:00; Start 10/11/15 at 08:00; Stop 10/11/15 at 23:15; Status DC Sodium Chloride 500 ml @ 0 mls/hr Q24H IV ; Start 10/11/15 at 08:00; Stop at 23:15; Status DC Insulin Human Regular (NovoLIN R INJ) See Protocol Table ... UNSCH X1 PRN SQ SEE PROTOCOL; Start 10/11/15 at 08:00; Stop 10/11/15 at 23:15; Status DC Metoprolol Tartrate (Lopressor) 25 mg UNSCH X1 PRN PO SEE LABEL COMMENTS; Start 10/11/15 at 08:00; Stop 10/11/15 at 23:15; Status DC Fentanyl Citrate (Sublimaze Inj) 250 mcg STK-MED ONCE .ROUTE Last administered on 10/11/15at 09:45; Start 10/11/15 at 09:13; Stop 10/11/15 at 09:14; Status DC Iohexol (Omnipaque 350 Inj) 20 ml STK-MED ONCE IV Last administered on at 10:44; Start 10/11/15 at 10:44; Stop 10/11/15 at 10:45; Status DC Gentamicin Sulfate (Gentamicin Inj) 240 mg STK-MED ONCE .ROUTE Last administered on 10/11/15at 14:24; Start 10/11/15 at 12:02; Stop 10/11/15 at 12:03 ; Status DC Cefazolin Sodium/ Dextrose 50 ml @ As Directed STK-MED ONCE .ROUTE Last administered on 10/11/15at 14:10; Start 10/11/15 at 12:03; Stop 10/11/15 at 12:04 ; Status DC Sodium Chloride 250 ml @ As Directed STK-MED ONCE .ROUTE ; Start 10/11/15 at 12 :03; Stop 10/11/15 at 12:04; Status DC Vancomycin HCl (Vancomycin Inj) 1,000 mg STK-MED ONCE .ROUTE Last administered on 10/11/15at 14:10; Start 10/11/15 at 12:03; Stop 10/11/15 at 12:04; Status DC Ranitidine HCl (Zantac Inj) 50 mg STK-MED ONCE .ROUTE Last administered on 10/10at 12:53; Start 10/11/15 at 12:53; Stop 10/11/15 at 12:54; Status DC Ketamine HCl (Ketalar Inj) 500 mg STK-MED ONCE .ROUTE ; Start 10/11/15 at 13:05 ; Stop 10/11/15 at 13:06; Status DC Tranexamic Acid 2000 mg/Sodium Chloride 120 ml @ 240 mls/hr UNSCH IV Last administered on 10/11/15at 14:18; Start 10/11/15 at 13:15; Stop 10/12/15 at 16:00 ; Status DC Sugammadex Sodium (Bridion Inj) 600 mg STK-MED ONCE IV PUSH ; Start 10/11/15 at 13:14; Stop 10/11/15 at 13:15; Status DC Sodium Chloride 250 ml @ As Directed STK-MED ONCE .ROUTE ; Start 10/11/15 at 14 :08; Stop 10/11/15 at 14:09; Status DC Vancomycin HCl (Vancomycin Inj) 1,000 mg STK-MED ONCE .ROUTE Last administered on 10/11/15at 14:10; Start 10/11/15 at 14:08; Stop 10/11/15 at 14:09; Status DC Acetaminophen (Ofirmev Inj) 1,000 mg STK-MED ONCE IV ; Start 10/11/15 at 15:25; Stop 10/11/15 at 15:26; Status DC Lactated Ringer's 1,000 ml @ 80 mls/hr [id number] IV Last administered on at 17:40; Start 10/11/15 at 17:00; Stop 10/12/15 at 07:31; Status DC IV Flush (NS Flush) 2 ml UNSCH PRN IVF FLUSH AFTER USING IV ACCESS; Start 10/10 at 16:00; Stop 10/11/15 at 23:15; Status DC IV Flush (NS Flush) 2 ml BID IVF Last administered on 10/11/15at 22:00; Start at 21:00; Stop 10/11/15 at 23:15; Status DC Miscellaneous Information (Post-op Orders (for Pharmacy)) STAT ONCE XX ; Start 10/11/15 at 16:00; Stop 10/11/15 at 17:40; Status DC Enoxaparin Sodium (Lovenox Inj) 40 mg Q12H SQ ; Start 10/12/15 at 16:00; Stop at 16:00; Status DC Senna/Docusate Sodium (Kristen-Colace) 1 tab BID PO Last administered on at 08:59; Start 10/11/15 at 21:00; Stop 01/06/16 at 18:39; Status DC Cefazolin Sodium/ Dextrose 50 ml @ 100 mls/hr Q8H IV ; Start 10/11/15 at 22:00 ; Stop 10/11/15 at 22:00; Status DC Vancomycin HCl 1000 mg/Sodium Chloride 250 ml @ 250 mls/hr Q12H IV Last administered on 10/13/15at 14:11; Start 10/12/15 at 02:00; Stop 10/13/15 at 14:59 ; Status DC Miscellaneous Information UNSCH PRN XX SEE LABEL COMMENTS; Start 10/11/15 at 16:00 Miscellaneous Medication ([facility]) ONCE ONCE XX ; Start at 16:00; Stop 10/11/15 at 17:11; Status DC Acetaminophen/ Hydrocodone Bitart ([place] 10-325 Mg) 1 tab Q3H PRN PO PAIN LESS THAN 5 ON SCALE Last administered on 10/19/15at 08:22; Start 10/11/15 at 16:00; Stop 11/10/15 at 11:22; Status DC Acetaminophen/ Hydrocodone Bitart ([place] 10-325 Mg) 2 tab Q6H PRN PO PAIN GREATER THAN/EQUAL TO 5 Last administered on 11/10/15at 10:12; Start 10/11/15 at 16:00; Stop 11/10/15 at 11:22; Status DC Ondansetron HCl (Zofran Inj) 4 mg Q4H PRN IVP NAUSEA OR VOMITING; Start at 16:00; Stop 10/11/15 at 23:15; Status DC Diphenhydramine HCl (Benadryl) 25 mg Q6H PRN PO ITCHING Last administered on t 08:35; Start 10/11/15 at 16:00 Naloxone HCl (Narcan Inj) 0.4 mg UNSCH PRN IV RESPIRATORY RATE LESS THAN 10; Start 10/11/15 at 16:00 Morphine Sulfate (Morphine 1 Mg/ ml TRAY DRIER) 30 mg UNSCH IV Last administered on at 17:40; Start 10/11/15 at 16:00; Stop 10/13/15 at 15:59; Status DC TRAY DRIER Dosage Infused (Pha) 1 Q8HR .XX Last administered on 10/12/15at 20:42; Start 10/11/15 at 22:00; Stop 10/13/15 at 13:59; Status DC Morphine Sulfate (Morphine Inj) 4 mg Q3H PRN IV PUSH break thru pain; Start at 16:00; Stop 10/20/15 at 09:44; Status DC Cefazolin Sodium/ Dextrose 50 ml @ 100 mls/hr Q8H IV Last administered on 10/12at 14:11; Start 10/11/15 at 21:00; Stop 10/13/15 at 13:29; Status DC Propofol 100 ml @ As Directed STK-MED ONCE .ROUTE Last administered on at 17:11; Start 10/11/15 at 17:11; Stop 10/11/15 at 17:12; Status DC Midazolam HCl (Versed Inj) 2 mg STK-MED ONCE .ROUTE ; Start 10/11/15 at 17:35; Stop 10/11/15 at 17:36; Status DC Midazolam HCl (Versed Inj) 2 mg STK-MED ONCE .ROUTE ; Start 10/11/15 at 17:35; Stop 10/11/15 at 17:36; Status DC Fentanyl Citrate (Sublimaze Inj) 500 mcg STK-MED ONCE .ROUTE ; Start 10/11/15 at 17:35; Stop 10/11/15 at 17:36; Status DC Miscellaneous Information ALL NURSING DEPARTME... UNSCH PRN XX SEE LABEL COMMENTS; Start 10/11/15 at 17:45; Stop 10/12/15 at 17:44; Status DC Morphine Sulfate (*morphine INJ PERIprocedure ONLY) 8 mg STK-MED ONCE .ROUTE Last administered on 10/11/15at 17:46; Start 10/11/15 at 17:46; Stop 10/11/15 at 17:47; Status DC Propofol 100 ml @ As Directed STK-MED ONCE .ROUTE Last administered on at 18:38; Start 10/11/15 at 18:38; Stop 10/11/15 at 18:39; Status DC Morphine Sulfate (*morphine INJ PERIprocedure ONLY) 8 mg STK-MED ONCE .ROUTE Last administered on 10/11/15at 18:39; Start 10/11/15 at 18:39; Stop 10/11/15 at 18:40; Status DC Morphine Sulfate (*morphine INJ PERIprocedure ONLY) 8 mg STK-MED ONCE .ROUTE Last administered on 10/11/15at 19:02; Start 10/11/15 at 19:02; Stop 10/11/15 at 19:03; Status DC Morphine Sulfate (*morphine INJ PERIprocedure ONLY) 8 mg STK-MED ONCE .ROUTE ; Start 10/11/15 at 19:04; Stop 10/11/15 at 19:05; Status DC Propofol 100 ml @ As Directed STK-MED ONCE .ROUTE Last administered on at 19:49; Start 10/11/15 at 19:49; Stop 10/11/15 at 19:50; Status DC Hydromorphone HCl (*DILAUDID PF INJ PERIprocedural ONLY) 1 mg STK-MED ONCE .ROUTE Last administered on 10/11/15at 20:52; Start 10/11/15 at 20:52; Stop at 20:53; Status DC Propofol 100 ml @ As Directed STK-MED ONCE .ROUTE Last administered on at 21:05; Start 10/11/15 at 21:05; Stop 10/11/15 at 21:06; Status DC Propofol 100 ml @ As Directed STK-MED ONCE .ROUTE ; Start 10/11/15 at 22:20; Stop 10/11/15 at 22:21; Status DC IV Flush (NS Flush) 2 ml UNSCH PRN IVF FLUSH AFTER USING IV ACCESS Last administered on 11/17/15at 04:24; Start 10/11/15 at 23:15; Stop 12/06/15 at 12: 30; Status DC IV Flush (NS Flush) 2 ml BID IVF Last administered on 12/05/15at 08:36; Start 10/12/15 at 09:00; Stop 12/06/15 at 12:30; Status DC Artificial Tears (Tears Naturale Opth Soln) 1 drop TID EACH EYE Last administered on 03/02/16t 16:41; Start 10/12/15 at 09:00; Stop 03/03/16 at 13:29; Status DC Ondansetron HCl (Zofran Inj) 4 mg Q6H PRN IV NAUSEA OR VOMITING Last administered on 11/24/15at 12:05; Start 10/11/15 at 23:15; Stop 07/05/16 at 13:53 ; Status DC Albuterol/ Ipratropium (Duoneb Neb) 1 ampule Q4HR NEB PRN INH WHEEZING; Start 10/11/15 at 23:15; Status Cancel Miscellaneous Information 1 Q361D XX Last administered on 10/11/15at 23:15; Start 10/11/15 at 23:15; Stop 02/02/16 at 12:06; Status DC Chlorhexidine Gluconate (Chlorhexidine 2% Cloth) Taper DAILY@04 TOP Last administered on 10/17/15at 05:00; Start 10/12/15 at 04:00; Stop 02/02/16 at 12:06 ; Status DC Chlorhexidine Gluconate (Chlorhexidine 2% Cloth) 3 pack UNSCH PRN TOP HYGIENIC CARE; Start 10/11/15 at 23:15; Stop 02/02/16 at 12:06; Status DC Chlorhexidine Gluconate (Peridex 0.12% Liq) 15 ml BID@08,20 MT Last administered on 11/01/15at 07:56; Start 10/12/15 at 08:00; Stop 11/11/15 at 09:28 ; Status DC Propofol 100 ml @ 0 mls/hr TITRATE IV Last administered on 10/12/15at 07:38; Start 10/11/15 at 23:15; Stop 10/13/15 at 15:51; Status DC Dexmedetomidine HCl 50 ml @ 0 mls/hr TITRATE IV Last administered on 10/12/15at 12:38; Start 10/12/15 at 07:30; Stop 10/12/15 at 08:59; Status DC Bumetanide (Bumetanide Inj) 2 mg ONCE ONCE IV PUSH Last administered on at 08:24; Start 10/12/15 at 07:30; Stop 10/12/15 at 08:08; Status DC Potassium Chloride (KCl 40 Meq/30 ml Liq) 40 meq ONCE ONCE PO ; Start 10/12/15 at 07:30; Stop 10/12/15 at 08:08; Status DC Piperacillin Sod/ Tazobactam Sod 100 ml @ 200 mls/hr Q6H IV Last administered on 10/13/15at 09:42; Start 10/12/15 at 10:00; Stop 10/13/15 at 15:50; Status DC Albuterol/ Ipratropium (Duoneb Neb) 1 ampule Q4HR NEB NEB Last administered on 10/13/15at 11:55; Start 10/12/15 at 08:00; Stop 10/13/15 at 13:04; Status DC Dexmedetomidine HCl 1000 mcg/ Sodium Chloride 250 ml @ 0 mls/hr TITRATE IV Last administered on 10/12/15at 12:00; Start 10/12/15 at 09:00; Stop 10/13/15 at 15:50; Status DC Potassium Chloride 100 ml @ 50 mls/hr Q2H IV Last administered on 10/12/15at 12 :39; Start 10/12/15 at 10:00; Stop 10/12/15 at 13:59; Status DC Propofol (Diprivan 200 Mg/20 ml Inj) 400 mg STK-MED ONCE IV ; Start 10/11/15 at 11:24; Stop 10/12/15 at 11:25; Status DC Ondansetron HCl (Zofran Inj) 4 mg STK-MED ONCE IV PUSH ; Start 10/11/15 at 11:24 ; Stop 10/12/15 at 11:25; Status DC Lactated Ringer's 1,000 ml @ As Directed STK-MED ONCE IV ; Start 10/11/15 at 11 :24; Stop 10/12/15 at 11:25; Status DC Sodium Chloride 250 ml @ As Directed STK-MED ONCE IV ; Start 10/11/15 at 11:24 ; Stop 10/12/15 at 11:25; Status DC Parenteral Electrolytes 3,000 ml @ As Directed STK-MED ONCE IV ; Start at 11:24; Stop 10/12/15 at 11:25; Status DC Mupirocin (Bactroban Nasal 2% Oint) 1 applic BID EACH NARE Last administered on 10/19/15at 08:22; Start 10/12/15 at 14:45; Stop 10/22/15 at 14:44; Status DC Enoxaparin Sodium (Lovenox Inj) 60 mg Q12H SQ Last administered on 10/13/15at 04 :15; Start 10/12/15 at 16:00; Stop 10/13/15 at 15:50; Status DC Albuterol/ Ipratropium (Duoneb Neb) 1 ampule Q6HR NEB NEB Last administered on 10/17/15at 15:45; Start 10/13/15 at 16:00; Stop 10/17/15 at 16:00; Status DC Sodium Chloride 1,000 ml @ 999 mls/hr Q1H1M IV ; Start 10/13/15 at 15:45; Stop 10/13/15 at 16:45; Status DC Sodium Chloride 1,000 ml @ 100 mls/hr Q10H IV ; Start 10/13/15 at 15:45; Stop 10/13/15 at 16:57; Status DC Piperacillin Sod/ Tazobactam Sod 100 ml @ 200 mls/hr Q8H IV Last administered on 10/20/15at 08:08; Start 10/13/15 at 18:00; Stop 10/20/15 at 09:44; Status DC Enoxaparin Sodium (Lovenox Inj) 30 mg Q12H SQ Last administered on 10/21/15at 16 :53; Start 10/13/15 at 16:00; Stop 10/21/15 at 17:21; Status DC Sodium Chloride 1,000 ml @ 50 mls/hr Q20H IV Last administered on 10/14/15at 10 :56; Start 10/13/15 at 16:55; Stop 10/14/15 at 15:44; Status DC Pantoprazole Sodium (Protonix) 40 mg DAILY PO Last administered on 11/11/15at 08 :49; Start 10/17/15 at 09:00; Stop 11/11/15 at 09:28; Status DC Polyethylene Glycol (Miralax) 17 gm DAILY PO Last administered on 12/05/15at 08 :36; Start 10/18/15 at 10:00; Stop 12/14/15 at 13:02; Status DC Iron/Minerals/ Multivitamins (Flintstones Complete) 1 tab DAILY CHEW Last administered on 11/06/16 09:00; Start 10/20/15 at 16:45 Enoxaparin Sodium (Lovenox Inj) 60 mg Q12H SQ Last administered on 11/06/16 06 :20; Start 10/22/15 at 04:00 Nystatin (Mycostatin Powder) 1 applic BID TOPICAL Last administered on 23:03; Start 10/29/15 at 11:00; Stop 08/01/16 at 14:30; Status DC Levofloxacin/ Dextrose 150 ml @ 100 mls/hr Q24H IV Last administered on at 10:14; Start 10/30/15 at 09:00; Stop 11/07/15 at 16:00; Status DC Bisacodyl (Dulcolax Supp) 10 mg ONCE ONCE RECTAL Last administered on at 13:25; Start 11/03/15 at 11:15; Stop 11/03/15 at 11:17; Status DC Heparin Sodium (Porcine) (Heparin Inj) 10,000 units STK-MED ONCE .ROUTE ; Start 11/10/15 at 07:05; Stop 11/10/15 at 07:06; Status DC Thrombin (Thrombin Top Soln) 10,000 units STK-MED ONCE .ROUTE ; Start 11/10/15 at 07:05; Stop 11/10/15 at 07:06; Status DC Gelatin (Gelfoam 100 Top) 1 foam STK-MED ONCE .ROUTE ; Start 11/10/15 at 07:05; Stop 11/10/15 at 07:06; Status DC Lidocaine/ Epinephrine (Xylocaine-Epi 1%-1:100,000 Inj) 50 ml STK-MED ONCE .ROUTE ; Start 11/10/15 at 07:05; Stop 11/10/15 at 07:06; Status DC Gentamicin Sulfate (Gentamicin Inj) 240 mg STK-MED ONCE .ROUTE ; Start 11/10/15 at 07:05; Stop 11/10/15 at 07:06; Status DC Oxycodone HCl (Roxicodone) 10 mg Q3H PRN PO pain 1-5 Last administered on 19:04; Start 11/10/15 at 12:00 Oxycodone HCl (Roxicodone) 20 mg Q6H PRN PO pain 6-10 Last administered on 11/06 06:20; Start 11/10/15 at 12:00 Ranitidine HCl (Zantac) 150 mg Q12HR PO Last administered on 11/21/15at 19:54; Start 11/11/15 at 21:00; Stop 11/22/15 at 08:45; Status DC Hydromorphone HCl (Dilaudid) 4 mg Q4H PRN PO BREAKTHROUGH PAIN Last administered on 04/14/16 12:34; Start 11/18/15 at 08:30; Stop 08/15/16 at 08:45 ; Status DC Lactated Ringer's 1,000 ml @ 0 mls/hr Q24H IV ; Start 11/22/15 at 08:30; Stop 11/23/15 at 08:29; Status DC Bisacodyl (Dulcolax Ec) 10 mg DAILY PO ; Start 11/22/15 at 09:00; Stop 11/22/15 at 09:00; Status DC Bisacodyl (Dulcolax Supp) 10 mg DAILY RECTAL ; Start 11/22/15 at 09:00; Stop at 09:00; Status DC Bisacodyl (Dulcolax Ec) 10 mg DAILY PRN PO constipation Last administered on at 05:05; Start 11/23/15 at 09:00 Bisacodyl (Dulcolax Supp) 10 mg DAILY PRN RECTAL constipation; Start 11/23/15 at 09:00; Stop 01/06/16 at 18:38; Status DC Bisacodyl (Dulcolax Ec) 10 mg ONCE ONCE PO Last administered on 11/22/15at 09: 19; Start 11/22/15 at 08:00; Stop 11/22/15 at 08:07; Status DC Bisacodyl (Dulcolax Supp) 10 mg ONCE ONCE RECTAL ; Start 11/22/15 at 08:00; Stop 11/22/15 at 08:10; Status DC Famotidine (Pepcid) 20 mg Q12HR PO Last administered on 11/06/16 09:12; Start 11/22/15 at 09:00 Bisacodyl (Dulcolax Ec) 10 mg ONCE ONCE PO Last administered on 11/23/15at 09: 44; Start 11/23/15 at 08:00; Stop 11/23/15 at 08:01; Status DC Bisacodyl (Dulcolax Supp) 10 mg ONCE ONCE RECTAL ; Start 11/23/15 at 08:00; Stop 11/23/15 at 08:01; Status DC Sodium Biphosphate/ Sodium Phosphate (Fleets Enema (Adult)) 133 ml ONCE ONCE MO ; Start 11/24/15 at 08:00; Stop 11/24/15 at 08:06; Status DC Metoprolol Tartrate (Lopressor) 25 mg Q12HR PO Last administered on 11/06/16 09:12; Start 12/20/15 at 21:00 Senna/Docusate Sodium (Kristen-Colace) 2 tab BID PO Last administered on 05/03/16 08:42; Start 01/06/16 at 21:00; Stop 07/12/16 at 08:33; Status DC Senna/Docusate Sodium (Kristen-Colace) 2 tab BID PRN PO CONSTIPATION Last administered on 03/03/16 16:04; Start 01/06/16 at 18:15; Stop 04/26/16 at 15:44 ; Status DC Lactulose (Lactulose Liq) 30 ml TID PRN PO CONSTIPATION Last administered on 04:58; Start 01/06/16 at 18:15; Stop 07/12/16 at 08:33; Status DC Bisacodyl (Dulcolax Supp) 10 mg DAILY PRN [place] CONSTIPATION; Start 01/06/16 at 18:15; Status Cancel Magnesium Hydroxide (Milk Of Magnesia Liq) 30 ml Q6H PRN PO CONSTIPATION Last administered on 02/16/16 07:57; Start 01/06/16 at 18:15; Stop 04/26/16 at 15: 44; Status DC Simethicone (Phazyme Chew) 125 mg Q8HR PO Last administered on 01/08/16 04:08 ; Start 01/06/16 at 22:00; Stop 01/08/16 at 10:16; Status DC Simethicone (Phazyme Chew) 125 mg Q8HR PRN PO GAS/BLOATING Last administered on 10/20/16 08:55; Start 01/08/16 at 10:15; Stop 11/02/16 at 16:21; Status DC Polyethylene Glycol (Miralax) 17 gm DAILY PRN PO CONSTIPATION Last administered on 01/08/16at 10:27; Start 01/08/16 at 10:15; Stop 02/04/16 at 13 :58; Status DC Multi-Ingredient Ointment (Eucerin Cream) 1 applic DAILY TOPICAL Last administered on 01/19/16 09:12; Start 01/14/16 at 09:00; Stop 01/20/16 at 08 :59; Status DC Calcium/Vitamin D (Oscal-D 250-125) 250 mg Q12HR PO Last administered on 09:12; Start 01/16/16 at 09:00 Ergocalciferol (Drisdol) 50,000 units Q7D PO Last administered on 11/05/16 10: 33; Start 01/16/16 at 09:00 Polyethylene Glycol (Miralax) 17 gm DAILY PO Last administered on 02/16/16at 07 :57; Start 02/05/16 at 09:00; Stop 02/29/16 at 14:03; Status DC Emollient Ointment (Aquaphor Oint) 1 applic HS TOP Last administered on 23:03; Start 02/17/16 at 21:00; Stop 08/01/16 at 14:30; Status DC Carisoprodol (Soma) 350 mg Q8H PRN PO muscle spasm Last administered on 06:20; Start 02/24/16 at 23:30 Carisoprodol (Soma) 350 mg ONCE ONCE PO Last administered on 02/24/16at 15:47 ; Start 02/24/16 at 15:30; Stop 02/24/16 at 15:31; Status DC Polyethylene Glycol (Miralax) 17 gm DAILY PRN PO constipation; Start 02/29/16 at 14:15; Stop 04/26/16 at 15:44; Status DC Artificial Tears (Tears Naturale Opth Soln) 1 drop TID PRN EACH EYE DRY EYE Last administered on 03/11/16 09:03; Start 03/03/16 at 13:30; Stop 11/02/16 at 16 :21; Status DC Polyethylene Glycol (Miralax) 17 gm ONCE ONCE PO Last administered on 12:44; Start 03/04/16 at 12:30; Stop 03/04/16 at 12:31; Status DC Enalaprilat (Vasotec Inj) 1.25 mg Q6H PRN IV SBP> OR = 180, DBP> OR = 100; Start 03/25/16 at 09:30 Clonidine (Catapres) 0.1 mg Q6H PRN PO SBP> OR = 180, DBP> OR = 100; Start at 09:30; Stop 11/02/16 at 16:21; Status DC Lactic Acid (Lac-Hydrin 12% Lotion) 1 applic BID TOPICAL Last administered on 09:00; Start 03/30/16 at 15:00; Stop 06/11/16 at 11:47; Status DC Psyllium Hydrophilic Mucilloid (Metamucil Smooth Texture Sf/ Gf Pkt) 1 pkt TID PO Last administered on 07/18/16 17:34; Start 04/26/16 at 18:00; Stop 08/01/16 at 14:31; Status DC Polyethylene Glycol (Miralax) 17 gm HS PO ; Start 04/26/16 at 21:00; Stop at 14:30; Status DC Bupropion HCl (Wellbutrin) 75 mg Q12HR PO Last administered on 07/11/16 09:55 ; Start 05/02/16 at 21:00; Stop 07/11/16 at 13:51; Status DC Lactobacillus Acidophilus (Lactinex) 1 tab ONCE ONCE PO Last administered on 16:33; Start 05/03/16 at 14:00; Stop 05/03/16 at 14:01; Status DC Lactobacillus Acidophilus (Lactinex) 1 tab Q12HR PO Last administered on 09:53; Start 05/03/16 at 21:00; Stop 05/09/16 at 14:24; Status DC Loperamide HCl (Imodium) 2 mg Q6H PRN PO DIARRHEA Last administered on 00:51; Start 05/03/16 at 14:00; Stop 05/06/16 at 09:47; Status DC Potassium Chloride (KCl) 20 meq ONCE ONCE PO Last administered on 05/04/16 11 :16; Start 05/04/16 at 11:00; Stop 05/04/16 at 11:01; Status DC Metronidazole (Flagyl) 500 mg Q8H PO Last administered on 05/19/16 23:51; Start 05/06/16 at 08:00; Stop 05/20/16 at 07:59; Status DC Lactobacillus Acidophilus (Lactinex) 1 tab DAILY PO Last administered on 12:33; Start 05/10/16 at 09:00; Stop 05/11/16 at 13:25; Status DC Lactobacillus Acidophilus (Lactinex) 1 tab BID PO ; Start 05/11/16 at 21:00; Stop 05/11/16 at 21:00; Status DC Lactobacillus Acidophilus (Lactinex) 1 tab DAILY PO Last administered on 13:25; Start 05/12/16 at 09:00; Stop 05/13/16 at 09:11; Status DC Lactobacillus Acidophilus (Lactinex) 1 tab DAILY PO Last administered on 09:22; Start 05/14/16 at 09:30; Stop 05/20/16 at 11:24; Status DC Meclizine HCl (Antivert) 25 mg ONCE ONCE PO Last administered on 05/14/16 10: 57; Start 05/14/16 at 09:30; Stop 05/14/16 at 09:51; Status DC Meclizine HCl (Antivert) 25 mg Q8H PRN PO DIZZINESS; Start 05/14/16 at 09:30; Status Cancel Lactobacillus Acidophilus (Lactinex) 1 tab DAILY PRN PO diarrhea ; Start at 18:15; Stop 06/05/16 at 09:01; Status DC Lactobacillus Acidophilus (Lactinex) 1 tab TID PO Last administered on 09:12; Start 05/20/16 at 13:00 Loperamide HCl (Imodium) 2 mg Q6H PRN PO DIARRHEA Last administered on 09:46; Start 05/21/16 at 09:00; Stop 06/27/16 at 10:44; Status DC Diphenoxylate HCl/ Atropine (Lomotil Tab) 2 tab Q8H PRN PO SEVERE DIARRHEA Last administered on 05/28/16 16:32; Start 05/28/16 at 13:15; Stop 07/04/16 at 12 :46; Status DC Metronidazole (Flagyl) 500 mg Q8H PO Last administered on 06/01/16 09:04; Start 05/31/16 at 17:00; Stop 06/01/16 at 16:48; Status DC Metronidazole (Flagyl) 500 mg Q6H PO Last administered on 06/13/16 19:53; Start 06/01/16 at 21:00; Stop 06/13/16 at 23:00; Status DC Lactic Acid (Lac-Hydrin 12% Lotion) 1 applic BID TOPICAL Last administered on 23:03; Start 06/11/16 at 12:00; Stop 08/01/16 at 14:30; Status DC Cholestyramine Resin (Questran 4 Gm Pkt) 4 gm ONCE ONCE PO Last administered on 06/15/16 14:00; Start 06/15/16 at 14:00; Stop 06/15/16 at 14:03; Status DC Cholestyramine Resin (Questran 4 Gm Pkt) 4 gm Q8HR PRN PO DIARRHEA Last administered on 06/26/16 08:01; Start 06/15/16 at 14:00; Stop 11/02/16 at 16:21; Status DC Loperamide HCl (Imodium) 2 mg Q6H PRN PO DIARRHEA Last administered on 10:17; Start 06/26/16 at 12:30; Stop 06/27/16 at 10:44; Status DC Loperamide HCl (Imodium) 2 mg Q4H PRN PO DIARRHEA Last administered on 05:37; Start 06/27/16 at 10:45; Stop 07/12/16 at 08:33; Status DC Diphenoxylate HCl/ Atropine (Lomotil Tab) 1 tab ONCE ONCE PO Last administered on 07/04/16 16:10; Start 07/04/16 at 12:45; Stop 07/04/16 at 12:53 ; Status DC Ondansetron HCl (Zofran Odt) 4 mg Q6H PRN PO NAUSEA OR VOMITING Last administered on 08/21/16 20:54; Start 07/05/16 at 14:00 Diatrizoate Meglum/ Diatrizoate Sod ( Gastroview Liq) 18 ml ONCE ONCE PO ; Start 07/05/16 at 19:00; Stop 07/05/16 at 19:01; Status DC Diphenoxylate HCl/ Atropine (Lomotil Tab) 1 tab ONCE ONCE PO Last administered on 07/11/16 11:47; Start 07/11/16 at 09:00; Stop 07/11/16 at 09:09 ; Status DC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
[2016-11-06 16:00] VITALS: BP 119/73; PULSE 76; RESP 19; TEMP 96.8; O2SAT 99
[2016-11-06 20:00] VITALS: BP 127/60; PULSE 74; RESP 20; TEMP 97.3; O2SAT 74
[2016-11-07] VITALS: BP 128/64; PULSE 72; RESP 18; TEMP 98; O2SAT 97
[2016-11-07] MEDS: ENOXAPARIN SODIUM 60 MG/0.6 ML SYRINGE SQ SCH ×2 (04:13→15:25)
[2016-11-07 08:00] VITALS: BP 132/60; PULSE 65; RESP 17; TEMP 98.4; O2SAT 97
[2016-11-07] MEDS: HYDROCORTISONE 0.5% CREAM 30 GM TOPICAL SCH ×3 (08:00→15:25)
[2016-11-07] MEDS: LACTOBACILLUS ACIDOPHILUS TAB PO SCH ×3 (08:20→16:28)
[2016-11-07] MEDS: MULTIVITAMINS/IRON/MINERALS CHEWABLE TAB CHEW SCH (08:20)
[2016-11-07] MEDS: CARISOPRODOL 350 MG TAB PO PRN ×2 (08:20→16:28)
[2016-11-07] MEDS: FAMOTIDINE 20 MG TAB PO SCH ×2 (08:20→20:16)
[2016-11-07] MEDS: CALCIUM/VITAMIN D 250 MG/125 U TAB PO SCH ×2 (08:20→20:16)
[2016-11-07] MEDS: METOPROLOL TARTRATE 25 MG TAB PO SCH ×2 (08:20→20:16)
[2016-11-07] MEDS: ASCORBIC ACID 500 MG TAB PO SCH ×3 (08:20→16:28)
[2016-11-07] MEDS: FERROUS SULFATE 325 MG (65 MG ELEMENTAL IRON) TAB PO SCH ×3 (08:20→16:28)
[2016-11-07] MEDS: buPROPion HCL 100 MG TAB PO SCH ×2 (08:20→20:16)
[2016-11-07] MEDS: LACTIC ACID (AMMONIUM LACTATE) 12% LOTION 225 GM BTL TOPICAL SCH ×2 (08:24→20:16)
[2016-11-07] MEDS: NYSTATIN 100,000 U/GM OINT 15 GM TUBE TOPICAL SCH ×2 (08:24→20:16)
[2016-11-07] MEDS: NEOMYCIN/POLYMYXIN/BACITRACIN OINT 15 GM TUBE TOPICAL SCH ×2 (08:24→20:16)
[2016-11-07] MEDS: MUPIROCIN 2% OINT 22 GM TUBE TOPICAL SCH ×2 (08:24→20:16)
[2016-11-07] MEDS: LORazepam 0.5 MG TAB PO PRN (10:22)
[2016-11-07 12:00] VITALS: BP 115/59; PULSE 72; RESP 19; TEMP 97.9; O2SAT 97
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
[2016-11-07 16:00] VITALS: BP 132/61; PULSE 70; RESP 19; TEMP 96.8; O2SAT 96
[2016-11-07 20:00] VITALS: BP 122/56; PULSE 71; RESP 17; TEMP 97.7; O2SAT 96
[2016-11-08] VITALS: BP 118/60; PULSE 69; RESP 17; TEMP 96.4; O2SAT 98
[2016-11-08] MEDS: CARISOPRODOL 350 MG TAB PO PRN ×3 (01:38→17:06)
[2016-11-08] MEDS: ENOXAPARIN SODIUM 60 MG/0.6 ML SYRINGE SQ SCH ×2 (03:52→17:07)
[2016-11-08 08:00] VITALS: BP 136/63; PULSE 67; RESP 18; TEMP 97.5; O2SAT 99
[2016-11-08] MEDS: HYDROCORTISONE 0.5% CREAM 30 GM TOPICAL SCH ×4 (08:00→22:06)
[2016-11-08] MEDS: METOPROLOL TARTRATE 25 MG TAB PO SCH ×2 (08:59→22:01)
[2016-11-08] MEDS: CALCIUM/VITAMIN D 250 MG/125 U TAB PO SCH ×2 (09:00→22:02)
[2016-11-08] MEDS: FERROUS SULFATE 325 MG (65 MG ELEMENTAL IRON) TAB PO SCH ×3 (09:00→17:06)
[2016-11-08] MEDS: LACTIC ACID (AMMONIUM LACTATE) 12% LOTION 225 GM BTL TOPICAL SCH ×2 (09:00→22:03)
[2016-11-08] MEDS: FUROSEMIDE 20 MG TAB PO SCH (09:00)
[2016-11-08] MEDS: FAMOTIDINE 20 MG TAB PO SCH ×2 (09:00→22:02)
[2016-11-08] MEDS: LACTOBACILLUS ACIDOPHILUS TAB PO SCH ×3 (09:00→17:07)
[2016-11-08] MEDS: MULTIVITAMINS/IRON/MINERALS CHEWABLE TAB CHEW SCH (09:00)
[2016-11-08] MEDS: ASCORBIC ACID 500 MG TAB PO SCH ×3 (09:00→17:06)
[2016-11-08] MEDS: MUPIROCIN 2% OINT 22 GM TUBE TOPICAL SCH ×2 (09:00→22:04)
[2016-11-08] MEDS: buPROPion HCL 100 MG TAB PO SCH ×2 (09:00→22:02)
[2016-11-08] MEDS: NEOMYCIN/POLYMYXIN/BACITRACIN OINT 15 GM TUBE TOPICAL SCH ×2 (09:00→22:05)
[2016-11-08] MEDS: NYSTATIN 100,000 U/GM OINT 15 GM TUBE TOPICAL SCH ×2 (09:00→22:04)
[2016-11-08] MEDS: LORazepam 0.5 MG TAB PO PRN (09:08)
[2016-11-08 12:00] VITALS: BP 129/73; PULSE 71; RESP 18; TEMP 96.9; O2SAT 98
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
[2016-11-08 16:00] VITALS: BP 134/68; PULSE 78; RESP 20; TEMP 98; O2SAT 99
[2016-11-08 20:00] VITALS: BP 125/60; PULSE 73; RESP 17; TEMP 96; O2SAT 98
[2016-11-09] VITALS: BP 126/73; PULSE 69; RESP 17; TEMP 97.8; O2SAT 98
[2016-11-09] MEDS: CARISOPRODOL 350 MG TAB PO PRN ×3 (01:10→17:51)
[2016-11-09] MEDS: ENOXAPARIN SODIUM 60 MG/0.6 ML SYRINGE SQ SCH ×2 (03:51→16:52)
[2016-11-09 08:00] VITALS: BP 111/57; PULSE 69; RESP 18; TEMP 96.9; O2SAT 98
[2016-11-09] MEDS: HYDROCORTISONE 0.5% CREAM 30 GM TOPICAL SCH ×3 (08:00→21:04)
[2016-11-09] MEDS: NEOMYCIN/POLYMYXIN/BACITRACIN OINT 15 GM TUBE TOPICAL SCH ×2 (09:00→21:04)
[2016-11-09] MEDS: LACTIC ACID (AMMONIUM LACTATE) 12% LOTION 225 GM BTL TOPICAL SCH ×2 (09:00→21:05)
[2016-11-09] MEDS: NYSTATIN 100,000 U/GM OINT 15 GM TUBE TOPICAL SCH ×2 (09:00→21:04)
[2016-11-09] MEDS: MUPIROCIN 2% OINT 22 GM TUBE TOPICAL SCH ×2 (09:00→21:00)
[2016-11-09] MEDS: buPROPion HCL 100 MG TAB PO SCH ×2 (09:43→21:01)
[2016-11-09] MEDS: LACTOBACILLUS ACIDOPHILUS TAB PO SCH ×3 (09:44→17:51)
[2016-11-09] MEDS: MULTIVITAMINS/IRON/MINERALS CHEWABLE TAB CHEW SCH (09:44)
[2016-11-09] MEDS: FAMOTIDINE 20 MG TAB PO SCH ×2 (09:44→21:01)
[2016-11-09] MEDS: LOPERAMIDE HCL SOLN 2 MG/10 ML UDC PO PRN (09:44)
[2016-11-09] MEDS: FERROUS SULFATE 325 MG (65 MG ELEMENTAL IRON) TAB PO SCH ×3 (09:44→17:52)
[2016-11-09] MEDS: METOPROLOL TARTRATE 25 MG TAB PO SCH ×2 (09:44→21:01)
[2016-11-09] MEDS: CALCIUM/VITAMIN D 250 MG/125 U TAB PO SCH ×2 (09:45→21:01)
[2016-11-09] MEDS: ASCORBIC ACID 500 MG TAB PO SCH ×3 (09:45→17:51)
[2016-11-09] MEDS: FUROSEMIDE 20 MG TAB PO SCH (09:49)
[2016-11-09] MEDS: LORazepam 0.5 MG TAB PO PRN (10:17)
[2016-11-09 12:00] VITALS: BP 123/58; PULSE 61; RESP 18; TEMP 97.3; O2SAT 97
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
[2016-11-09 16:00] VITALS: BP 109/56; PULSE 66; RESP 18; TEMP 97.9; O2SAT 97
[2016-11-09 20:00] VITALS: BP 107/77; PULSE 74; RESP 16; TEMP 97.3; O2SAT 95
[2016-11-10] VITALS: BP 124/69; PULSE 71; RESP 18; TEMP 97.3; O2SAT 96
[2016-11-10] MEDS: ENOXAPARIN SODIUM 60 MG/0.6 ML SYRINGE SQ SCH ×2 (02:15→18:04)
[2016-11-10] MEDS: CARISOPRODOL 350 MG TAB PO PRN ×3 (02:15→18:02)
[2016-11-10 08:00] VITALS: BP 108/59; PULSE 57; RESP 15; TEMP 97.8; O2SAT 98
[2016-11-10] MEDS: MUPIROCIN 2% OINT 22 GM TUBE TOPICAL SCH ×2 (09:00→21:00)
[2016-11-10] MEDS: LACTIC ACID (AMMONIUM LACTATE) 12% LOTION 225 GM BTL TOPICAL SCH ×2 (10:25→21:00)
[2016-11-10] MEDS: NYSTATIN 100,000 U/GM OINT 15 GM TUBE TOPICAL SCH ×2 (10:25→21:00)
[2016-11-10] MEDS: NEOMYCIN/POLYMYXIN/BACITRACIN OINT 15 GM TUBE TOPICAL SCH ×2 (10:26→21:47)
[2016-11-10] MEDS: HYDROCORTISONE 0.5% CREAM 30 GM TOPICAL SCH ×3 (10:26→21:47)
[2016-11-10] MEDS: FERROUS SULFATE 325 MG (65 MG ELEMENTAL IRON) TAB PO SCH ×3 (10:27→18:05)
[2016-11-10] MEDS: LACTOBACILLUS ACIDOPHILUS TAB PO SCH ×3 (10:27→18:02)
[2016-11-10] MEDS: MULTIVITAMINS/IRON/MINERALS CHEWABLE TAB CHEW SCH (10:27)
[2016-11-10] MEDS: CALCIUM/VITAMIN D 250 MG/125 U TAB PO SCH ×2 (10:27→21:45)
[2016-11-10] MEDS: buPROPion HCL 100 MG TAB PO SCH ×2 (10:27→21:45)
[2016-11-10] MEDS: ASCORBIC ACID 500 MG TAB PO SCH ×3 (10:27→18:02)
[2016-11-10] MEDS: METOPROLOL TARTRATE 25 MG TAB PO SCH ×2 (10:27→21:45)
[2016-11-10] MEDS: FUROSEMIDE 20 MG TAB PO SCH (10:28)
[2016-11-10] MEDS: FAMOTIDINE 20 MG TAB PO SCH ×2 (10:28→21:45)
[2016-11-10] MEDS: LORazepam 0.5 MG TAB PO PRN (10:33)
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
[2016-11-10 12:00] VITALS: BP 107/59; PULSE 60; RESP 17; TEMP 95.4; O2SAT 97
[2016-11-10 16:00] VITALS: BP 131/74; PULSE 63; RESP 18; TEMP 95.5; O2SAT 99
[2016-11-10 20:00] VITALS: BP 119/57; PULSE 64; RESP 20; TEMP 97.1; O2SAT 97
[2016-11-11] VITALS: BP 118/66; PULSE 69; RESP 20; TEMP 97.3; O2SAT 97
[2016-11-11] MEDS: CARISOPRODOL 350 MG TAB PO PRN ×3 (02:28→17:54)
[2016-11-11] MEDS: ENOXAPARIN SODIUM 60 MG/0.6 ML SYRINGE SQ SCH ×2 (02:30→14:30)
[2016-11-11 08:00] VITALS: BP 116/64; PULSE 59; RESP 18; TEMP 96.3; O2SAT 100
[2016-11-11] MEDS: NYSTATIN 100,000 U/GM OINT 15 GM TUBE TOPICAL SCH ×2 (09:00→20:44)
[2016-11-11] MEDS: NEOMYCIN/POLYMYXIN/BACITRACIN OINT 15 GM TUBE TOPICAL SCH ×2 (09:00→20:46)
[2016-11-11] MEDS: ASCORBIC ACID 500 MG TAB PO SCH ×3 (10:17→17:52)
[2016-11-11] MEDS: buPROPion HCL 100 MG TAB PO SCH ×2 (10:17→20:35)
[2016-11-11] MEDS: FERROUS SULFATE 325 MG (65 MG ELEMENTAL IRON) TAB PO SCH ×3 (10:17→17:52)
[2016-11-11] MEDS: LACTOBACILLUS ACIDOPHILUS TAB PO SCH ×3 (10:17→17:52)
[2016-11-11] MEDS: METOPROLOL TARTRATE 25 MG TAB PO SCH ×2 (10:18→20:35)
[2016-11-11] MEDS: FUROSEMIDE 20 MG TAB PO SCH (10:18)
[2016-11-11] MEDS: CALCIUM/VITAMIN D 250 MG/125 U TAB PO SCH ×2 (10:18→20:35)
[2016-11-11] MEDS: MULTIVITAMINS/IRON/MINERALS CHEWABLE TAB CHEW SCH (10:18)
[2016-11-11] MEDS: FAMOTIDINE 20 MG TAB PO SCH ×2 (10:18→20:35)
[2016-11-11] MEDS: LACTIC ACID (AMMONIUM LACTATE) 12% LOTION 225 GM BTL TOPICAL SCH ×2 (10:21→20:44)
[2016-11-11] MEDS: HYDROCORTISONE 0.5% CREAM 30 GM TOPICAL SCH ×3 (10:22→20:39)
[2016-11-11] MEDS: MUPIROCIN 2% OINT 22 GM TUBE TOPICAL SCH ×2 (10:22→20:41)
[2016-11-11 12:00] VITALS: BP 114/56; PULSE 66; RESP 19; TEMP 96.8; O2SAT 99
[2016-11-11 16:00] VITALS: BP 119/76; PULSE 72; RESP 19; TEMP 97.7; O2SAT 99
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
[2016-11-11] MEDS: LORazepam 0.5 MG TAB PO PRN (17:52)
[2016-11-11 18:00] VITALS: BP 146/83
[2016-11-11 20:00] VITALS: BP 117/63; PULSE 60; RESP 18; TEMP 96.5; O2SAT 96
[2016-11-12] VITALS: BP 114/59; PULSE 65; RESP 18; TEMP 97; O2SAT 98
[2016-11-12] MEDS: CARISOPRODOL 350 MG TAB PO PRN ×3 (02:03→17:53)
[2016-11-12] MEDS: ENOXAPARIN SODIUM 60 MG/0.6 ML SYRINGE SQ SCH ×2 (02:06→17:43)
[2016-11-12 08:00] VITALS: BP 104/62; PULSE 59; RESP 18; TEMP 96.6; O2SAT 99
[2016-11-12] MEDS: HYDROCORTISONE 0.5% CREAM 30 GM TOPICAL SCH ×3 (08:00→21:46)
[2016-11-12] MEDS: NYSTATIN 100,000 U/GM OINT 15 GM TUBE TOPICAL SCH ×2 (09:00→21:46)
[2016-11-12] MEDS: NEOMYCIN/POLYMYXIN/BACITRACIN OINT 15 GM TUBE TOPICAL SCH ×2 (09:00→21:46)
[2016-11-12] MEDS: METOPROLOL TARTRATE 25 MG TAB PO SCH ×2 (09:00→21:43)
[2016-11-12] MEDS: FAMOTIDINE 20 MG TAB PO SCH ×2 (09:00→21:43)
[2016-11-12] MEDS: MUPIROCIN 2% OINT 22 GM TUBE TOPICAL SCH ×2 (09:00→21:45)
[2016-11-12] MEDS: LACTIC ACID (AMMONIUM LACTATE) 12% LOTION 225 GM BTL TOPICAL SCH ×2 (09:00→21:46)
[2016-11-12] MEDS: MULTIVITAMINS/IRON/MINERALS CHEWABLE TAB CHEW SCH (09:10)
[2016-11-12] MEDS: ERGOCALCIFEROL (VIT D2) 50,000 UNIT CAP PO SCH (09:11)
[2016-11-12] MEDS: LACTOBACILLUS ACIDOPHILUS TAB PO SCH ×3 (09:11→17:45)
[2016-11-12] MEDS: buPROPion HCL 100 MG TAB PO SCH ×2 (09:11→21:43)
[2016-11-12] MEDS: CALCIUM/VITAMIN D 250 MG/125 U TAB PO SCH ×2 (09:11→21:43)
[2016-11-12] MEDS: FERROUS SULFATE 325 MG (65 MG ELEMENTAL IRON) TAB PO SCH ×3 (09:12→17:45)
[2016-11-12] MEDS: ASCORBIC ACID 500 MG TAB PO SCH ×3 (09:12→17:44)
[2016-11-12] MEDS: FUROSEMIDE 20 MG TAB PO SCH (09:12)
[2016-11-12] MEDS: LORazepam 0.5 MG TAB PO PRN (09:13)
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
[2016-11-12 12:00] VITALS: BP 112/62; PULSE 74; RESP 16; TEMP 98; O2SAT 98
[2016-11-12 16:00] VITALS: BP 122/61; PULSE 100; RESP 16; TEMP 98.1; O2SAT 97
[2016-11-12 20:00] VITALS: BP 117/63; PULSE 91; RESP 18; TEMP 97.9; O2SAT 97
[2016-11-12 21:38] LABS: BICARBONATE 30.5 MEQ/L (21.0-32.0)
[2016-11-13] VITALS: BP 101/58; PULSE 77; RESP 18; TEMP 96.1; O2SAT 97
[2016-11-13] MEDS: CARISOPRODOL 350 MG TAB PO PRN ×3 (01:50→17:43)
[2016-11-13] MEDS: ENOXAPARIN SODIUM 60 MG/0.6 ML SYRINGE SQ SCH ×2 (03:32→17:44)
[2016-11-13 08:00] VITALS: BP 113/70; PULSE 57; RESP 20; TEMP 97.7; O2SAT 98
[2016-11-13] MEDS: buPROPion HCL 100 MG TAB PO SCH ×2 (10:11→22:10)
[2016-11-13] MEDS: ASCORBIC ACID 500 MG TAB PO SCH ×3 (10:11→17:45)
[2016-11-13] MEDS: LACTOBACILLUS ACIDOPHILUS TAB PO SCH ×3 (10:11→17:45)
[2016-11-13] MEDS: FUROSEMIDE 20 MG TAB PO SCH (10:11)
[2016-11-13] MEDS: MULTIVITAMINS/IRON/MINERALS CHEWABLE TAB CHEW SCH (10:11)
[2016-11-13] MEDS: METOPROLOL TARTRATE 25 MG TAB PO SCH ×2 (10:11→22:10)
[2016-11-13] MEDS: CALCIUM/VITAMIN D 250 MG/125 U TAB PO SCH ×2 (10:11→22:10)
[2016-11-13] MEDS: FERROUS SULFATE 325 MG (65 MG ELEMENTAL IRON) TAB PO SCH ×3 (10:11→17:45)
[2016-11-13] MEDS: FAMOTIDINE 20 MG TAB PO SCH ×2 (10:12→22:10)
[2016-11-13] MEDS: LORazepam 0.5 MG TAB PO PRN (10:12)
[2016-11-13] MEDS: MUPIROCIN 2% OINT 22 GM TUBE TOPICAL SCH ×2 (10:16→22:10)
[2016-11-13] MEDS: NEOMYCIN/POLYMYXIN/BACITRACIN OINT 15 GM TUBE TOPICAL SCH ×2 (10:16→22:11)
[2016-11-13] MEDS: HYDROCORTISONE 0.5% CREAM 30 GM TOPICAL SCH ×3 (10:17→22:26)
[2016-11-13] MEDS: NYSTATIN 100,000 U/GM OINT 15 GM TUBE TOPICAL SCH ×2 (10:17→22:11)
[2016-11-13] MEDS: LACTIC ACID (AMMONIUM LACTATE) 12% LOTION 225 GM BTL TOPICAL SCH ×2 (10:18→22:11)
[2016-11-13 12:00] VITALS: BP 128/67; PULSE 69; RESP 18; TEMP 97.5; O2SAT 98
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
[2016-11-13 16:00] VITALS: BP 113/65; PULSE 72; RESP 16; TEMP 97.2; O2SAT 99
[2016-11-13 20:00] VITALS: BP 117/60; PULSE 79; RESP 18; TEMP 97.6; O2SAT 97
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
[2016-11-14] VITALS: BP 141/57; PULSE 18; PULSE 75; RESP 18; TEMP 97.6; O2SAT 97
[2016-11-14] MEDS: ENOXAPARIN SODIUM 60 MG/0.6 ML SYRINGE SQ SCH ×2 (05:12→17:39)
[2016-11-14] MEDS: CARISOPRODOL 350 MG TAB PO PRN ×4 (05:13→23:06)
[2016-11-14 08:00] VITALS: BP 124/58; PULSE 71; RESP 18; TEMP 96.6; O2SAT 99
[2016-11-14] MEDS: NEOMYCIN/POLYMYXIN/BACITRACIN OINT 15 GM TUBE TOPICAL SCH ×2 (09:00→23:10)
[2016-11-14] MEDS: MULTIVITAMINS/IRON/MINERALS CHEWABLE TAB CHEW SCH (10:28)
[2016-11-14] MEDS: FAMOTIDINE 20 MG TAB PO SCH ×2 (10:29→23:06)
[2016-11-14] MEDS: FUROSEMIDE 20 MG TAB PO SCH (10:29)
[2016-11-14] MEDS: LACTOBACILLUS ACIDOPHILUS TAB PO SCH ×3 (10:29→17:39)
[2016-11-14] MEDS: buPROPion HCL 100 MG TAB PO SCH ×2 (10:29→23:06)
[2016-11-14] MEDS: CALCIUM/VITAMIN D 250 MG/125 U TAB PO SCH ×2 (10:29→23:05)
[2016-11-14] MEDS: LORazepam 0.5 MG TAB PO PRN (10:30)
[2016-11-14] MEDS: METOPROLOL TARTRATE 25 MG TAB PO SCH ×2 (10:30→23:06)
[2016-11-14] MEDS: ASCORBIC ACID 500 MG TAB PO SCH ×3 (10:30→17:39)
[2016-11-14] MEDS: LACTIC ACID (AMMONIUM LACTATE) 12% LOTION 225 GM BTL TOPICAL SCH ×2 (10:34→21:00)
[2016-11-14] MEDS: HYDROCORTISONE 0.5% CREAM 30 GM TOPICAL SCH ×3 (10:34→23:14)
[2016-11-14] MEDS: MUPIROCIN 2% OINT 22 GM TUBE TOPICAL SCH ×2 (10:34→21:00)
[2016-11-14] MEDS: FERROUS SULFATE 325 MG (65 MG ELEMENTAL IRON) TAB PO SCH ×3 (10:34→17:39)
[2016-11-14] MEDS: NYSTATIN 100,000 U/GM OINT 15 GM TUBE TOPICAL SCH ×2 (10:34→21:00)
[2016-11-14 12:00] VITALS: BP 122/77; PULSE 77; RESP 19; TEMP 98; O2SAT 95
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
--- NOTE | 2016-11-14 13:35 | RADRPT ---
EXAM DATE/TIME: 11/14/2016 12:49 [facility] COMPARISON: KNEE LEFT LTD (1 OR 2VWS), May 02, 2016, 19:53. INDICATIONS : Evaluate left femur fracture. MEDICAL HISTORY : Venous stasis, lower extremity. Chronic back pain. Substance use. MRSA. SURGICAL HISTORY : ORIF left femur. ENCOUNTER: Subsequent ACUITY: 1 year PAIN SCORE: 8/10 LOCATION: Left distal femur. FINDINGS: Side plate with screws is seen bridging the comminuted fracture distal femur in reasonable alignment. CONCLUSION: Plate and screws in good position, in reasonable alignment. Stephon Carpio MD FACR on November 14, 2016 at 13:33 Board Certified Radiologist. This report was verified electronically.
[2016-11-14 16:00] VITALS: BP 100/64; PULSE 68; RESP 16; TEMP 97.1; O2SAT 98
[2016-11-14 20:00] VITALS: BP 129/61; PULSE 73; RESP 18; TEMP 96.9; O2SAT 99
[2016-11-14] MEDS: NAPROXEN 500 MG TAB PO SCH (23:06)
[2016-11-15] VITALS: BP 128/71; PULSE 77; RESP 18; TEMP 97.4; O2SAT 97
[2016-11-15] MEDS: ENOXAPARIN SODIUM 60 MG/0.6 ML SYRINGE SQ SCH ×2 (06:24→17:54)
--- NOTE | 2016-11-15 07:05 | PD.ORT.PN ---
Subjective Subjective Remarks s/p left distal femur fx with ORIF approx 1 year ago. recent reports of increased pain in knee Objective Vitals Vital Signs Date Time Temp Pulse Resp B/P (MAP) Pulse Ox O2 Delivery O2 Flow Rate FiO2 11/15/16 00:00 97.4 77 18 128/71 (90) 97 11/14/16 20:00 96.9 73 18 129/61 (83) 99 11/14/16 16:00 97.1 68 16 100/64 (76) 98 11/14/16 12:00 98.0 77 19 122/77 (92) 95 11/14/16 08:00 96.6 71 18 124/58 (80) 99 I/O 11/14/16 11/14/16 11/14/16 11/15/16 11/15/16 11/15/16 07:00 15:00 23:00 07:00 15:00 23:00 Intake Total 360 ml 1440 ml Output Total 600 ml 625 ml Balance -240 ml 815 ml Intake Oral 360 ml 1440 ml Output Urine Total 600 ml 625 ml # Bowel Movements 0 Result Diagram: 11/12/162017 Objective Remarks LLE: NVI. slight discomfort with motion of knee. +cap refill Assessment & Plan Assessment and Plan 1) Healed left distal femur fx -WBAT -no restrictions -aggressive PT -XR from yesterday show healed distal femur fx in good position -likely pain from extreme period of inactivity. muscular in nature -ortho signing off Lewis Carey Nov 15, 2016 07:05
[2016-11-15 08:00] VITALS: BP 107/63; PULSE 63; RESP 16; TEMP 96.5; O2SAT 100
[2016-11-15] MEDS: MUPIROCIN 2% OINT 22 GM TUBE TOPICAL SCH ×2 (09:00→21:00)
[2016-11-15] MEDS: NEOMYCIN/POLYMYXIN/BACITRACIN OINT 15 GM TUBE TOPICAL SCH ×2 (09:00→21:00)
[2016-11-15] MEDS: LACTIC ACID (AMMONIUM LACTATE) 12% LOTION 225 GM BTL TOPICAL SCH ×2 (09:00→21:00)
[2016-11-15] MEDS: METOPROLOL TARTRATE 25 MG TAB PO SCH ×2 (09:00→22:28)
[2016-11-15] MEDS: MULTIVITAMINS/IRON/MINERALS CHEWABLE TAB CHEW SCH (09:00)
[2016-11-15] MEDS: LORazepam 0.5 MG TAB PO PRN (10:00)
[2016-11-15] MEDS: CARISOPRODOL 350 MG TAB PO PRN ×2 (10:00→17:55)
[2016-11-15] MEDS: FUROSEMIDE 20 MG TAB PO SCH (10:01)
[2016-11-15] MEDS: buPROPion HCL 100 MG TAB PO SCH ×2 (10:01→22:28)
[2016-11-15] MEDS: FERROUS SULFATE 325 MG (65 MG ELEMENTAL IRON) TAB PO SCH ×3 (10:01→17:55)
[2016-11-15] MEDS: ASCORBIC ACID 500 MG TAB PO SCH ×3 (10:01→17:54)
[2016-11-15] MEDS: NAPROXEN 500 MG TAB PO SCH ×2 (10:02→22:28)
[2016-11-15] MEDS: FAMOTIDINE 20 MG TAB PO SCH ×2 (10:02→22:28)
[2016-11-15] MEDS: CALCIUM/VITAMIN D 250 MG/125 U TAB PO SCH ×2 (10:02→22:28)
[2016-11-15] MEDS: LACTOBACILLUS ACIDOPHILUS TAB PO SCH ×3 (10:02→17:55)
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
[2016-11-15 12:00] VITALS: BP 113/67; PULSE 70; RESP 18; TEMP 97; O2SAT 99
[2016-11-15 16:00] VITALS: BP 117/70; PULSE 71; RESP 17; TEMP 96.8; O2SAT 99
[2016-11-15 20:00] VITALS: BP 133/73; PULSE 72; RESP 18; TEMP 97.3; O2SAT 99
[2016-11-16] VITALS: BP 127/72; PULSE 90; RESP 18; TEMP 96.6; O2SAT 98
[2016-11-16] MEDS: CARISOPRODOL 350 MG TAB PO PRN ×3 (01:31→17:42)
[2016-11-16] MEDS: ENOXAPARIN SODIUM 60 MG/0.6 ML SYRINGE SQ SCH ×2 (01:32→17:42)
[2016-11-16 08:00] VITALS: BP 104/56; PULSE 60; RESP 18; TEMP 97.4; O2SAT 96
[2016-11-16] MEDS: MUPIROCIN 2% OINT 22 GM TUBE TOPICAL SCH ×2 (09:00→20:54)
[2016-11-16] MEDS: NEOMYCIN/POLYMYXIN/BACITRACIN OINT 15 GM TUBE TOPICAL SCH ×2 (09:00→20:54)
[2016-11-16] MEDS: METOPROLOL TARTRATE 25 MG TAB PO SCH ×2 (09:00→20:54)
[2016-11-16] MEDS: LACTIC ACID (AMMONIUM LACTATE) 12% LOTION 225 GM BTL TOPICAL SCH ×2 (09:00→20:54)
[2016-11-16] MEDS: LORazepam 0.5 MG TAB PO PRN (10:00)
[2016-11-16] MEDS: MULTIVITAMINS/IRON/MINERALS CHEWABLE TAB CHEW SCH (10:01)
[2016-11-16] MEDS: FERROUS SULFATE 325 MG (65 MG ELEMENTAL IRON) TAB PO SCH ×3 (10:01→17:42)
[2016-11-16] MEDS: LACTOBACILLUS ACIDOPHILUS TAB PO SCH ×3 (10:01→17:42)
[2016-11-16] MEDS: buPROPion HCL 100 MG TAB PO SCH ×2 (10:01→20:54)
[2016-11-16] MEDS: NAPROXEN 500 MG TAB PO SCH ×2 (10:01→20:54)
[2016-11-16] MEDS: FAMOTIDINE 20 MG TAB PO SCH ×2 (10:01→20:54)
[2016-11-16] MEDS: CALCIUM/VITAMIN D 250 MG/125 U TAB PO SCH ×2 (10:02→20:54)
[2016-11-16] MEDS: FUROSEMIDE 20 MG TAB PO SCH (10:02)
[2016-11-16] MEDS: ASCORBIC ACID 500 MG TAB PO SCH ×3 (10:02→17:42)
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
[2016-11-16 12:00] VITALS: BP 129/68; PULSE 72; RESP 16; TEMP 96.9; O2SAT 99
[2016-11-16 16:00] VITALS: BP 141/67; PULSE 84; RESP 18; TEMP 97.1; O2SAT 97
[2016-11-16 20:00] VITALS: BP 125/73; PULSE 76; RESP 20; TEMP 96.3; O2SAT 98
[2016-11-17] VITALS: BP 121/58; PULSE 70; RESP 18; TEMP 97.5; O2SAT 99
[2016-11-17] MEDS: CARISOPRODOL 350 MG TAB PO PRN ×3 (03:57→20:39)
[2016-11-17] MEDS: ENOXAPARIN SODIUM 60 MG/0.6 ML SYRINGE SQ SCH ×2 (03:57→17:10)
[2016-11-17 08:45] VITALS: BP 123/63; PULSE 73; RESP 18; TEMP 97.9; O2SAT 100
[2016-11-17] MEDS: NEOMYCIN/POLYMYXIN/BACITRACIN OINT 15 GM TUBE TOPICAL SCH ×2 (09:00→20:45)
[2016-11-17] MEDS: MUPIROCIN 2% OINT 22 GM TUBE TOPICAL SCH ×2 (09:00→20:45)
[2016-11-17] MEDS: LACTIC ACID (AMMONIUM LACTATE) 12% LOTION 225 GM BTL TOPICAL SCH ×2 (09:00→20:45)
[2016-11-17] MEDS: ASCORBIC ACID 500 MG TAB PO SCH ×3 (09:15→17:10)
[2016-11-17] MEDS: LACTOBACILLUS ACIDOPHILUS TAB PO SCH ×3 (09:15→17:10)
[2016-11-17] MEDS: buPROPion HCL 100 MG TAB PO SCH ×2 (09:15→20:39)
[2016-11-17] MEDS: FUROSEMIDE 20 MG TAB PO SCH (09:15)
[2016-11-17] MEDS: METOPROLOL TARTRATE 25 MG TAB PO SCH ×2 (09:15→20:39)
[2016-11-17] MEDS: CALCIUM/VITAMIN D 250 MG/125 U TAB PO SCH ×2 (09:15→20:39)
[2016-11-17] MEDS: MULTIVITAMINS/IRON/MINERALS CHEWABLE TAB CHEW SCH (09:15)
[2016-11-17] MEDS: FAMOTIDINE 20 MG TAB PO SCH ×2 (09:15→20:39)
[2016-11-17] MEDS: FERROUS SULFATE 325 MG (65 MG ELEMENTAL IRON) TAB PO SCH ×3 (09:15→17:10)
[2016-11-17] MEDS: NAPROXEN 500 MG TAB PO SCH (09:18)
[2016-11-17 12:04] VITALS: BP 119/67; PULSE 79; RESP 19; TEMP 98; O2SAT 100
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
[2016-11-17 15:51] VITALS: BP 117/71; PULSE 73; RESP 18; TEMP 98.4; O2SAT 98
[2016-11-17 20:00] VITALS: BP 109/55; PULSE 80; RESP 17; TEMP 95.4; O2SAT 100
[2016-11-18] VITALS: BP 117/61; PULSE 76; RESP 17; TEMP 96.8; O2SAT 100
[2016-11-18] MEDS: CARISOPRODOL 350 MG TAB PO PRN ×3 (05:14→23:06)
[2016-11-18] MEDS: ENOXAPARIN SODIUM 60 MG/0.6 ML SYRINGE SQ SCH ×2 (05:14→16:53)
[2016-11-18 07:43] LABS: HEMATOCRIT 32.8 % (39.0-51.0); MEAN CELL VOLUME 81.3 FL (80.0-100.0); MEAN CORPUSCULAR HEMOGLOBIN 26.8 PG (27.0-34.0); MEAN CORPUSCULAR HGB CONC 32.9 % (32.0-36.0); PLATELET COUNT 165 TH/MM3 (150-450); RED BLOOD COUNT 4.04 MIL/MM3 (4.50-5.90); RED CELL DISTRIBUTION WIDTH 17.2 % (11.6-17.2); REVIEW FLAG FINAL; WHITE BLOOD COUNT 6.1 TH/MM3 (4.0-11.0)
[2016-11-18 07:58] LABS: BICARBONATE 28.8 MEQ/L (21.0-32.0); POTASSIUM 3.7 MEQ/L (3.5-5.1)
[2016-11-18 08:57] VITALS: BP 124/63; PULSE 78; RESP 20; TEMP 97.6; O2SAT 100
[2016-11-18] MEDS: MUPIROCIN 2% OINT 22 GM TUBE TOPICAL SCH ×2 (08:58→21:00)
[2016-11-18] MEDS: LACTIC ACID (AMMONIUM LACTATE) 12% LOTION 225 GM BTL TOPICAL SCH ×2 (08:58→21:00)
[2016-11-18] MEDS: NEOMYCIN/POLYMYXIN/BACITRACIN OINT 15 GM TUBE TOPICAL SCH ×2 (08:58→21:00)
[2016-11-18] MEDS: buPROPion HCL 100 MG TAB PO SCH ×2 (08:59→21:32)
[2016-11-18] MEDS: CALCIUM/VITAMIN D 250 MG/125 U TAB PO SCH ×2 (08:59→21:32)
[2016-11-18] MEDS: MULTIVITAMINS/IRON/MINERALS CHEWABLE TAB CHEW SCH (08:59)
[2016-11-18] MEDS: LACTOBACILLUS ACIDOPHILUS TAB PO SCH ×3 (08:59→16:52)
[2016-11-18] MEDS: ASCORBIC ACID 500 MG TAB PO SCH ×3 (08:59→16:52)
[2016-11-18] MEDS: FAMOTIDINE 20 MG TAB PO SCH ×2 (08:59→21:32)
[2016-11-18] MEDS: FERROUS SULFATE 325 MG (65 MG ELEMENTAL IRON) TAB PO SCH ×3 (08:59→16:52)
[2016-11-18] MEDS: METOPROLOL TARTRATE 25 MG TAB PO SCH ×2 (09:00→21:32)
[2016-11-18] MEDS: FUROSEMIDE 20 MG TAB PO SCH (09:00)
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
[2016-11-18 12:59] VITALS: BP 120/74; PULSE 68; RESP 19; TEMP 95.3; O2SAT 99
[2016-11-18 17:24] VITALS: BP 110/78; PULSE 85; RESP 19; TEMP 93.2; O2SAT 95
[2016-11-18 20:59] VITALS: BP 131/75; PULSE 80; RESP 18; TEMP 96.7; O2SAT 97
[2016-11-19 00:17] VITALS: BP 129/60; PULSE 67; RESP 20; TEMP 96.2; O2SAT 97
[2016-11-19] MEDS: ENOXAPARIN SODIUM 60 MG/0.6 ML SYRINGE SQ SCH ×2 (04:00→17:35)
[2016-11-19 08:00] VITALS: BP 125/74; PULSE 66; RESP 17; TEMP 97.3; O2SAT 95
[2016-11-19] MEDS: buPROPion HCL 100 MG TAB PO SCH ×2 (09:23→20:40)
[2016-11-19] MEDS: CARISOPRODOL 350 MG TAB PO PRN ×2 (09:23→17:32)
[2016-11-19] MEDS: CALCIUM/VITAMIN D 250 MG/125 U TAB PO SCH ×2 (09:23→20:39)
[2016-11-19] MEDS: FERROUS SULFATE 325 MG (65 MG ELEMENTAL IRON) TAB PO SCH ×3 (09:24→17:32)
[2016-11-19] MEDS: MULTIVITAMINS/IRON/MINERALS CHEWABLE TAB CHEW SCH (09:24)
[2016-11-19] MEDS: FUROSEMIDE 20 MG TAB PO SCH (09:24)
[2016-11-19] MEDS: FAMOTIDINE 20 MG TAB PO SCH ×2 (09:24→20:40)
[2016-11-19] MEDS: METOPROLOL TARTRATE 25 MG TAB PO SCH ×2 (09:24→20:40)
[2016-11-19] MEDS: ERGOCALCIFEROL (VIT D2) 50,000 UNIT CAP PO SCH (09:24)
[2016-11-19] MEDS: LACTOBACILLUS ACIDOPHILUS TAB PO SCH ×3 (09:24→17:31)
[2016-11-19] MEDS: ASCORBIC ACID 500 MG TAB PO SCH ×3 (09:24→17:31)
[2016-11-19] MEDS: LACTIC ACID (AMMONIUM LACTATE) 12% LOTION 225 GM BTL TOPICAL SCH ×2 (09:28→20:50)
[2016-11-19] MEDS: NEOMYCIN/POLYMYXIN/BACITRACIN OINT 15 GM TUBE TOPICAL SCH ×2 (09:28→20:50)
[2016-11-19] MEDS: MUPIROCIN 2% OINT 22 GM TUBE TOPICAL SCH ×2 (09:28→20:50)
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
[2016-11-19 12:00] VITALS: BP 140/61; PULSE 68; RESP 20; TEMP 96.9; O2SAT 98
[2016-11-19 16:00] VITALS: BP 134/61; PULSE 61; RESP 19; TEMP 97.9; O2SAT 97
[2016-11-19 20:00] VITALS: BP 129/58; PULSE 64; RESP 18; TEMP 96.3; O2SAT 97
[2016-11-20] VITALS: BP 116/57; PULSE 68; RESP 18; TEMP 96.4; O2SAT 97
[2016-11-20] MEDS: CARISOPRODOL 350 MG TAB PO PRN ×3 (01:34→18:07)
[2016-11-20] MEDS: ENOXAPARIN SODIUM 60 MG/0.6 ML SYRINGE SQ SCH ×2 (05:10→15:15)
[2016-11-20 08:00] VITALS: BP_SYST 106; BP_SYST 132; BP_DIAS 58; BP_DIAS 88; PULSE 63; RESP 18; TEMP 97.1; O2SAT 98; O2SAT 99
[2016-11-20] MEDS: LACTIC ACID (AMMONIUM LACTATE) 12% LOTION 225 GM BTL TOPICAL SCH ×2 (09:00→20:26)
[2016-11-20] MEDS: MUPIROCIN 2% OINT 22 GM TUBE TOPICAL SCH ×2 (09:00→20:25)
[2016-11-20] MEDS: METOPROLOL TARTRATE 25 MG TAB PO SCH ×2 (09:00→20:25)
[2016-11-20] MEDS: buPROPion HCL 100 MG TAB PO SCH ×2 (09:02→20:25)
[2016-11-20] MEDS: FERROUS SULFATE 325 MG (65 MG ELEMENTAL IRON) TAB PO SCH ×3 (09:03→18:07)
[2016-11-20] MEDS: MULTIVITAMINS/IRON/MINERALS CHEWABLE TAB CHEW SCH (09:03)
[2016-11-20] MEDS: ASCORBIC ACID 500 MG TAB PO SCH ×3 (09:03→18:07)
[2016-11-20] MEDS: FAMOTIDINE 20 MG TAB PO SCH ×2 (09:03→20:25)
[2016-11-20] MEDS: FUROSEMIDE 20 MG TAB PO SCH (09:03)
[2016-11-20] MEDS: CALCIUM/VITAMIN D 250 MG/125 U TAB PO SCH ×2 (09:03→20:25)
[2016-11-20] MEDS: LACTOBACILLUS ACIDOPHILUS TAB PO SCH ×3 (09:03→18:07)
[2016-11-20] MEDS: NEOMYCIN/POLYMYXIN/BACITRACIN OINT 15 GM TUBE TOPICAL SCH ×2 (09:07→20:26)
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
[2016-11-20] MEDS: LORazepam 0.5 MG TAB PO PRN (09:54)
[2016-11-20 12:36] VITALS: BP 127/67; PULSE 68; RESP 20; TEMP 97.4; O2SAT 97
[2016-11-20 16:00] VITALS: BP 118/58; PULSE 74; RESP 18; TEMP 97.6; O2SAT 97
[2016-11-20 20:00] VITALS: BP 118/62; PULSE 74; RESP 20; TEMP 97.3; O2SAT 98
[2016-11-21 00:24] VITALS: BP 130/76; PULSE 74; RESP 18; TEMP 96.8; O2SAT 97
[2016-11-21] MEDS: CARISOPRODOL 350 MG TAB PO PRN ×3 (00:28→15:28)
[2016-11-21] MEDS: ENOXAPARIN SODIUM 60 MG/0.6 ML SYRINGE SQ SCH ×2 (05:20→16:23)
[2016-11-21 08:00] VITALS: BP 120/67; PULSE 50; RESP 19; TEMP 96.9; O2SAT 100
[2016-11-21] MEDS: MULTIVITAMINS/IRON/MINERALS CHEWABLE TAB CHEW SCH (08:29)
[2016-11-21] MEDS: buPROPion HCL 100 MG TAB PO SCH ×2 (08:29→21:18)
[2016-11-21] MEDS: NEOMYCIN/POLYMYXIN/BACITRACIN OINT 15 GM TUBE TOPICAL SCH ×2 (08:30→21:19)
[2016-11-21] MEDS: MUPIROCIN 2% OINT 22 GM TUBE TOPICAL SCH ×2 (08:30→21:19)
[2016-11-21] MEDS: LACTOBACILLUS ACIDOPHILUS TAB PO SCH ×3 (08:30→17:34)
[2016-11-21] MEDS: FERROUS SULFATE 325 MG (65 MG ELEMENTAL IRON) TAB PO SCH ×3 (08:30→17:34)
[2016-11-21] MEDS: ASCORBIC ACID 500 MG TAB PO SCH ×3 (08:30→17:34)
[2016-11-21] MEDS: METOPROLOL TARTRATE 25 MG TAB PO SCH ×2 (08:30→21:18)
[2016-11-21] MEDS: LACTIC ACID (AMMONIUM LACTATE) 12% LOTION 225 GM BTL TOPICAL SCH ×2 (08:30→21:19)
[2016-11-21] MEDS: FAMOTIDINE 20 MG TAB PO SCH ×2 (08:30→21:18)
[2016-11-21] MEDS: CALCIUM/VITAMIN D 250 MG/125 U TAB PO SCH ×2 (08:30→21:18)
[2016-11-21] MEDS: FUROSEMIDE 20 MG TAB PO SCH (08:30)
[2016-11-21] MEDS: LORazepam 0.5 MG TAB PO PRN (08:36)
[2016-11-21 12:00] VITALS: BP 131/60; PULSE 62; RESP 19; TEMP 97.8; O2SAT 98
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
[2016-11-21 16:00] VITALS: BP 113/59; PULSE 65; RESP 20; TEMP 96.9; O2SAT 97
[2016-11-21 20:00] VITALS: BP 127/78; PULSE 68; RESP 20; TEMP 97.6; O2SAT 98
[2016-11-22 00:41] VITALS: BP 133/60; PULSE 65; RESP 20; TEMP 96.9; O2SAT 96
[2016-11-22] MEDS: CARISOPRODOL 350 MG TAB PO PRN ×3 (01:24→18:53)
[2016-11-22] MEDS: ENOXAPARIN SODIUM 60 MG/0.6 ML SYRINGE SQ SCH ×2 (05:48→15:27)
[2016-11-22 08:00] VITALS: BP 92/55; PULSE 60; RESP 18; TEMP 97.1; O2SAT 100
[2016-11-22] MEDS: FUROSEMIDE 20 MG TAB PO SCH (09:00)
[2016-11-22] MEDS: LACTIC ACID (AMMONIUM LACTATE) 12% LOTION 225 GM BTL TOPICAL SCH ×2 (09:00→23:30)
[2016-11-22] MEDS: METOPROLOL TARTRATE 25 MG TAB PO SCH ×2 (09:00→23:28)
[2016-11-22] MEDS: MUPIROCIN 2% OINT 22 GM TUBE TOPICAL SCH ×2 (09:00→23:28)
[2016-11-22] MEDS: NEOMYCIN/POLYMYXIN/BACITRACIN OINT 15 GM TUBE TOPICAL SCH ×2 (09:00→23:30)
[2016-11-22 09:50] VITALS: BP 126/67
[2016-11-22] MEDS: LORazepam 0.5 MG TAB PO PRN (09:59)
[2016-11-22] MEDS: FAMOTIDINE 20 MG TAB PO SCH ×2 (10:00→23:28)
[2016-11-22] MEDS: FERROUS SULFATE 325 MG (65 MG ELEMENTAL IRON) TAB PO SCH ×3 (10:00→18:53)
[2016-11-22] MEDS: ASCORBIC ACID 500 MG TAB PO SCH ×3 (10:00→18:53)
[2016-11-22] MEDS: MULTIVITAMINS/IRON/MINERALS CHEWABLE TAB CHEW SCH (10:00)
[2016-11-22] MEDS: CALCIUM/VITAMIN D 250 MG/125 U TAB PO SCH ×2 (10:01→23:28)
[2016-11-22] MEDS: buPROPion HCL 100 MG TAB PO SCH ×2 (10:01→21:00)
[2016-11-22] MEDS: LACTOBACILLUS ACIDOPHILUS TAB PO SCH ×3 (10:01→18:53)
[2016-11-22 12:00] VITALS: BP 104/56; PULSE 69; RESP 18; TEMP 97.6; O2SAT 98
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
[2016-11-22 16:00] VITALS: BP 101/58; PULSE 74; RESP 18; TEMP 97.1; O2SAT 99
[2016-11-22 20:00] VITALS: BP 120/69; PULSE 73; RESP 20; TEMP 97.8; O2SAT 98
[2016-11-23] VITALS: BP 114/58; PULSE 72; RESP 20; TEMP 97.2; O2SAT 97
[2016-11-23] MEDS: CARISOPRODOL 350 MG TAB PO PRN ×3 (02:39→18:28)
[2016-11-23] MEDS: ENOXAPARIN SODIUM 60 MG/0.6 ML SYRINGE SQ SCH ×2 (03:54→16:59)
[2016-11-23 08:00] VITALS: BP 99/54; PULSE 59; RESP 18; TEMP 97.7; O2SAT 98
[2016-11-23] MEDS: FUROSEMIDE 20 MG TAB PO SCH (09:00)
[2016-11-23] MEDS: NEOMYCIN/POLYMYXIN/BACITRACIN OINT 15 GM TUBE TOPICAL SCH ×3 (09:00→22:32)
[2016-11-23] MEDS: METOPROLOL TARTRATE 25 MG TAB PO SCH ×2 (09:00→22:30)
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
[2016-11-23] MEDS: buPROPion HCL 100 MG TAB PO SCH ×2 (10:13→22:30)
[2016-11-23] MEDS: ASCORBIC ACID 500 MG TAB PO SCH ×3 (10:13→18:28)
[2016-11-23] MEDS: CALCIUM/VITAMIN D 250 MG/125 U TAB PO SCH ×2 (10:13→22:30)
[2016-11-23] MEDS: LORazepam 0.5 MG TAB PO PRN (10:14)
[2016-11-23] MEDS: LACTOBACILLUS ACIDOPHILUS TAB PO SCH ×3 (10:14→18:28)
[2016-11-23] MEDS: FERROUS SULFATE 325 MG (65 MG ELEMENTAL IRON) TAB PO SCH ×3 (10:15→18:28)
[2016-11-23] MEDS: FAMOTIDINE 20 MG TAB PO SCH ×2 (10:15→22:30)
[2016-11-23] MEDS: MULTIVITAMINS/IRON/MINERALS CHEWABLE TAB CHEW SCH (10:15)
[2016-11-23] MEDS: LACTIC ACID (AMMONIUM LACTATE) 12% LOTION 225 GM BTL TOPICAL SCH ×3 (10:18→22:31)
[2016-11-23] MEDS: MUPIROCIN 2% OINT 22 GM TUBE TOPICAL SCH ×3 (10:18→22:31)
[2016-11-23 12:00] VITALS: BP 110/70; PULSE 78; RESP 18; TEMP 96.9; O2SAT 97
[2016-11-23 16:00] VITALS: BP 119/64; PULSE 83; RESP 16; TEMP 97.7; O2SAT 98
[2016-11-23 20:00] VITALS: BP 120/60; PULSE 70; RESP 17; TEMP 95.4; O2SAT 99
[2016-11-24] VITALS: BP 142/64; PULSE 105; RESP 18; TEMP 97; O2SAT 97
[2016-11-24] MEDS: CARISOPRODOL 350 MG TAB PO PRN ×2 (02:36→11:11)
[2016-11-24] MEDS: ENOXAPARIN SODIUM 60 MG/0.6 ML SYRINGE SQ SCH ×2 (02:41→16:39)
[2016-11-24 08:00] VITALS: BP 117/63; PULSE 76; RESP 16; TEMP 95.8; O2SAT 98
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
[2016-11-24] MEDS: LACTIC ACID (AMMONIUM LACTATE) 12% LOTION 225 GM BTL TOPICAL SCH ×2 (09:00→21:00)
[2016-11-24] MEDS: NEOMYCIN/POLYMYXIN/BACITRACIN OINT 15 GM TUBE TOPICAL SCH ×2 (09:00→21:00)
[2016-11-24] MEDS: LORazepam 0.5 MG TAB PO PRN (11:10)
[2016-11-24] MEDS: buPROPion HCL 100 MG TAB PO SCH ×2 (11:10→21:50)
[2016-11-24] MEDS: LACTOBACILLUS ACIDOPHILUS TAB PO SCH ×3 (11:11→16:38)
[2016-11-24] MEDS: MULTIVITAMINS/IRON/MINERALS CHEWABLE TAB CHEW SCH (11:11)
[2016-11-24] MEDS: FERROUS SULFATE 325 MG (65 MG ELEMENTAL IRON) TAB PO SCH ×3 (11:11→16:38)
[2016-11-24] MEDS: CALCIUM/VITAMIN D 250 MG/125 U TAB PO SCH ×2 (11:11→21:50)
[2016-11-24] MEDS: FAMOTIDINE 20 MG TAB PO SCH ×2 (11:11→21:50)
[2016-11-24] MEDS: METOPROLOL TARTRATE 25 MG TAB PO SCH ×2 (11:11→21:50)
[2016-11-24] MEDS: MUPIROCIN 2% OINT 22 GM TUBE TOPICAL SCH ×2 (11:12→21:00)
[2016-11-24] MEDS: FUROSEMIDE 20 MG TAB PO SCH (11:12)
[2016-11-24] MEDS: ASCORBIC ACID 500 MG TAB PO SCH ×3 (11:12→16:38)
[2016-11-24 12:00] VITALS: BP 104/51; PULSE 65; RESP 14; TEMP 96.4; O2SAT 98
[2016-11-24 16:00] VITALS: BP 106/51; PULSE 65; RESP 16; TEMP 96.6; O2SAT 98
[2016-11-24 20:25] VITALS: BP 135/69; PULSE 69; RESP 18; TEMP 96.8; O2SAT 98
[2016-11-25 00:27] VITALS: BP 131/74; PULSE 65; RESP 18; TEMP 96.4; O2SAT 94
[2016-11-25] MEDS: ENOXAPARIN SODIUM 60 MG/0.6 ML SYRINGE SQ SCH ×2 (05:03→16:59)
[2016-11-25 08:00] VITALS: BP 133/76; PULSE 63; RESP 17; TEMP 97; O2SAT 99
[2016-11-25] MEDS: CARISOPRODOL 350 MG TAB PO PRN ×3 (08:29→16:57)
[2016-11-25] MEDS: ASCORBIC ACID 500 MG TAB PO SCH ×3 (08:29→16:56)
[2016-11-25] MEDS: MULTIVITAMINS/IRON/MINERALS CHEWABLE TAB CHEW SCH (08:29)
[2016-11-25] MEDS: METOPROLOL TARTRATE 25 MG TAB PO SCH ×2 (08:30→20:42)
[2016-11-25] MEDS: buPROPion HCL 100 MG TAB PO SCH ×2 (08:30→20:43)
[2016-11-25] MEDS: FERROUS SULFATE 325 MG (65 MG ELEMENTAL IRON) TAB PO SCH ×3 (08:30→16:56)
[2016-11-25] MEDS: FAMOTIDINE 20 MG TAB PO SCH ×2 (08:30→20:42)
[2016-11-25] MEDS: LACTOBACILLUS ACIDOPHILUS TAB PO SCH ×3 (08:30→16:56)
[2016-11-25] MEDS: FUROSEMIDE 20 MG TAB PO SCH (08:30)
[2016-11-25] MEDS: CALCIUM/VITAMIN D 250 MG/125 U TAB PO SCH ×2 (08:30→20:42)
[2016-11-25] MEDS: MUPIROCIN 2% OINT 22 GM TUBE TOPICAL SCH ×2 (08:31→20:53)
[2016-11-25] MEDS: LACTIC ACID (AMMONIUM LACTATE) 12% LOTION 225 GM BTL TOPICAL SCH ×2 (08:32→20:53)
[2016-11-25] MEDS: NEOMYCIN/POLYMYXIN/BACITRACIN OINT 15 GM TUBE TOPICAL SCH ×2 (08:32→20:54)
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
[2016-11-25] MEDS: LORazepam 0.5 MG TAB PO PRN (10:14)
[2016-11-25 12:00] VITALS: BP 117/71; PULSE 63; RESP 17; TEMP 96.3; O2SAT 100
[2016-11-25 16:00] VITALS: BP 126/56; PULSE 68; RESP 17; TEMP 96.8; O2SAT 99
[2016-11-25 20:00] VITALS: BP 130/71; PULSE 66; RESP 20; TEMP 96.8; O2SAT 96
[2016-11-25] MEDS: diphenhydrAMINE HCL 25 MG CAP PO PRN (20:52)
[2016-11-26] VITALS: BP 117/66; PULSE 63; RESP 18; TEMP 97.3; O2SAT 99
[2016-11-26] MEDS: CARISOPRODOL 350 MG TAB PO PRN ×3 (01:26→18:26)
[2016-11-26] MEDS: ENOXAPARIN SODIUM 60 MG/0.6 ML SYRINGE SQ SCH ×2 (03:50→14:20)
[2016-11-26] MEDS: diphenhydrAMINE HCL 25 MG CAP PO PRN (03:50)
[2016-11-26 08:00] VITALS: BP 122/65; PULSE 60; RESP 19; TEMP 96.9; O2SAT 100
[2016-11-26] MEDS: MUPIROCIN 2% OINT 22 GM TUBE TOPICAL SCH ×2 (09:00→21:00)
[2016-11-26] MEDS: NEOMYCIN/POLYMYXIN/BACITRACIN OINT 15 GM TUBE TOPICAL SCH ×2 (09:00→21:00)
[2016-11-26] MEDS: LACTIC ACID (AMMONIUM LACTATE) 12% LOTION 225 GM BTL TOPICAL SCH ×2 (09:00→21:00)
[2016-11-26] MEDS: ASCORBIC ACID 500 MG TAB PO SCH ×3 (09:16→17:54)
[2016-11-26] MEDS: METOPROLOL TARTRATE 25 MG TAB PO SCH ×2 (09:16→21:00)
[2016-11-26] MEDS: MULTIVITAMINS/IRON/MINERALS CHEWABLE TAB CHEW SCH (09:16)
[2016-11-26] MEDS: CALCIUM/VITAMIN D 250 MG/125 U TAB PO SCH ×2 (09:16→21:00)
[2016-11-26] MEDS: FAMOTIDINE 20 MG TAB PO SCH ×2 (09:16→21:00)
[2016-11-26] MEDS: buPROPion HCL 100 MG TAB PO SCH ×2 (09:16→21:00)
[2016-11-26] MEDS: FUROSEMIDE 20 MG TAB PO SCH (09:16)
[2016-11-26] MEDS: ERGOCALCIFEROL (VIT D2) 50,000 UNIT CAP PO SCH (09:16)
[2016-11-26] MEDS: FERROUS SULFATE 325 MG (65 MG ELEMENTAL IRON) TAB PO SCH ×3 (09:16→17:53)
[2016-11-26] MEDS: LACTOBACILLUS ACIDOPHILUS TAB PO SCH ×3 (09:16→17:53)
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
[2016-11-26 12:00] VITALS: BP 123/59; PULSE 62; RESP 19; TEMP 97.1; O2SAT 96
[2016-11-26] MEDS: LORazepam 0.5 MG TAB PO PRN (14:19)
[2016-11-26 16:00] VITALS: BP 109/57; PULSE 75; RESP 20; TEMP 96.9; O2SAT 99
[2016-11-26 20:00] VITALS: BP 109/60; PULSE 66; RESP 17; TEMP 97.8; O2SAT 97
[2016-11-27] VITALS: BP 123/54; PULSE 62; RESP 18; TEMP 97.9; O2SAT 98
[2016-11-27] MEDS: ENOXAPARIN SODIUM 60 MG/0.6 ML SYRINGE SQ SCH ×2 (02:55→17:50)
[2016-11-27] MEDS: CARISOPRODOL 350 MG TAB PO PRN ×3 (02:56→17:50)
[2016-11-27] MEDS: LACTOBACILLUS ACIDOPHILUS TAB PO SCH ×3 (07:46→17:50)
[2016-11-27] MEDS: METOPROLOL TARTRATE 25 MG TAB PO SCH ×2 (07:46→21:15)
[2016-11-27] MEDS: buPROPion HCL 100 MG TAB PO SCH ×2 (07:46→21:15)
[2016-11-27] MEDS: NEOMYCIN/POLYMYXIN/BACITRACIN OINT 15 GM TUBE TOPICAL SCH ×2 (07:47→21:00)
[2016-11-27] MEDS: MUPIROCIN 2% OINT 22 GM TUBE TOPICAL SCH ×2 (07:47→21:00)
[2016-11-27] MEDS: MULTIVITAMINS/IRON/MINERALS CHEWABLE TAB CHEW SCH (07:47)
[2016-11-27] MEDS: CALCIUM/VITAMIN D 250 MG/125 U TAB PO SCH ×2 (07:47→21:15)
[2016-11-27] MEDS: FAMOTIDINE 20 MG TAB PO SCH ×2 (07:47→21:15)
[2016-11-27] MEDS: FUROSEMIDE 20 MG TAB PO SCH (07:47)
[2016-11-27] MEDS: LACTIC ACID (AMMONIUM LACTATE) 12% LOTION 225 GM BTL TOPICAL SCH ×2 (07:47→21:00)
[2016-11-27] MEDS: ASCORBIC ACID 500 MG TAB PO SCH ×3 (07:47→17:50)
[2016-11-27] MEDS: FERROUS SULFATE 325 MG (65 MG ELEMENTAL IRON) TAB PO SCH ×3 (07:47→17:50)
[2016-11-27 08:00] VITALS: BP 111/56; PULSE 65; RESP 20; TEMP 96.9; O2SAT 98
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
[2016-11-27] MEDS: LORazepam 0.5 MG TAB PO PRN (10:28)
[2016-11-27 12:00] VITALS: BP 114/64; PULSE 64; RESP 19; TEMP 97.2; O2SAT 97
[2016-11-27 16:00] VITALS: BP 112/65; PULSE 70; RESP 19; TEMP 96.9; O2SAT 98
[2016-11-27 20:00] VITALS: BP 135/67; PULSE 68; RESP 16; TEMP 96.4; O2SAT 99
[2016-11-28 00:43] VITALS: BP 109/68; PULSE 71; RESP 16; TEMP 96; O2SAT 98
[2016-11-28] MEDS: CARISOPRODOL 350 MG TAB PO PRN ×3 (01:57→18:46)
[2016-11-28] MEDS: ENOXAPARIN SODIUM 60 MG/0.6 ML SYRINGE SQ SCH ×2 (03:24→16:40)
[2016-11-28 08:00] VITALS: BP 109/65; PULSE 52; RESP 18; TEMP 97.7; O2SAT 98
[2016-11-28] MEDS: LACTIC ACID (AMMONIUM LACTATE) 12% LOTION 225 GM BTL TOPICAL SCH ×2 (09:00→20:25)
[2016-11-28] MEDS: NEOMYCIN/POLYMYXIN/BACITRACIN OINT 15 GM TUBE TOPICAL SCH ×2 (09:00→20:25)
[2016-11-28] MEDS: MUPIROCIN 2% OINT 22 GM TUBE TOPICAL SCH ×2 (09:00→20:24)
[2016-11-28] MEDS: METOPROLOL TARTRATE 25 MG TAB PO SCH ×2 (09:00→20:24)
[2016-11-28] MEDS: ASCORBIC ACID 500 MG TAB PO SCH ×3 (09:09→16:39)
[2016-11-28] MEDS: buPROPion HCL 100 MG TAB PO SCH ×2 (09:09→20:24)
[2016-11-28] MEDS: MULTIVITAMINS/IRON/MINERALS CHEWABLE TAB CHEW SCH (09:09)
[2016-11-28] MEDS: FERROUS SULFATE 325 MG (65 MG ELEMENTAL IRON) TAB PO SCH ×3 (09:09→16:39)
[2016-11-28] MEDS: FUROSEMIDE 20 MG TAB PO SCH (09:09)
[2016-11-28] MEDS: LACTOBACILLUS ACIDOPHILUS TAB PO SCH ×3 (09:09→16:39)
[2016-11-28] MEDS: CALCIUM/VITAMIN D 250 MG/125 U TAB PO SCH ×2 (09:09→20:24)
[2016-11-28] MEDS: FAMOTIDINE 20 MG TAB PO SCH ×2 (09:09→20:24)
[2016-11-28] MEDS: LORazepam 0.5 MG TAB PO PRN (09:54)
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
[2016-11-28 12:00] VITALS: BP 129/62; PULSE 63; RESP 20; TEMP 97.1; O2SAT 99
[2016-11-28 16:00] VITALS: BP 122/69; PULSE 80; RESP 18; TEMP 97.1; O2SAT 98
[2016-11-28 20:24] VITALS: BP 134/68; PULSE 73; RESP 18; TEMP 97.5; O2SAT 98
[2016-11-29 00:57] VITALS: BP 112/60; PULSE 70; RESP 16; TEMP 96.9; O2SAT 98
[2016-11-29] MEDS: CARISOPRODOL 350 MG TAB PO PRN ×2 (02:36→10:17)
[2016-11-29] MEDS: ENOXAPARIN SODIUM 60 MG/0.6 ML SYRINGE SQ SCH ×2 (04:13→16:47)
[2016-11-29 08:00] VITALS: BP 132/78; PULSE 70; RESP 17; TEMP 96.8; O2SAT 97
[2016-11-29] MEDS: CALCIUM/VITAMIN D 250 MG/125 U TAB PO SCH ×2 (08:38→20:30)
[2016-11-29] MEDS: FAMOTIDINE 20 MG TAB PO SCH ×2 (08:38→20:30)
[2016-11-29] MEDS: FUROSEMIDE 20 MG TAB PO SCH (08:38)
[2016-11-29] MEDS: buPROPion HCL 100 MG TAB PO SCH ×2 (08:38→20:30)
[2016-11-29] MEDS: LACTOBACILLUS ACIDOPHILUS TAB PO SCH ×3 (08:38→16:47)
[2016-11-29] MEDS: FERROUS SULFATE 325 MG (65 MG ELEMENTAL IRON) TAB PO SCH ×3 (08:38→16:47)
[2016-11-29] MEDS: MULTIVITAMINS/IRON/MINERALS CHEWABLE TAB CHEW SCH (08:38)
[2016-11-29] MEDS: METOPROLOL TARTRATE 25 MG TAB PO SCH ×2 (08:38→20:30)
[2016-11-29] MEDS: ASCORBIC ACID 500 MG TAB PO SCH ×3 (08:38→16:47)
[2016-11-29] MEDS: LACTIC ACID (AMMONIUM LACTATE) 12% LOTION 225 GM BTL TOPICAL SCH ×2 (08:39→20:27)
[2016-11-29] MEDS: MUPIROCIN 2% OINT 22 GM TUBE TOPICAL SCH ×3 (08:39→20:31)
[2016-11-29] MEDS: NEOMYCIN/POLYMYXIN/BACITRACIN OINT 15 GM TUBE TOPICAL SCH ×2 (08:39→20:27)
[2016-11-29] MEDS: LORazepam 0.5 MG TAB PO PRN (10:17)
[2016-11-29 12:00] VITALS: BP 121/64; PULSE 65; RESP 17; TEMP 97.7; O2SAT 90
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
[2016-11-29 16:00] VITALS: BP 124/57; PULSE 70; RESP 17; TEMP 96.2; O2SAT 97
[2016-11-29] MEDS: BACLOFEN 10 MG TAB PO SCH ×2 (16:47→22:30)
[2016-11-29 20:00] VITALS: BP 106/56; PULSE 70; RESP 20; TEMP 97.6; O2SAT 96
[2016-11-30] VITALS: BP 110/58; PULSE 69; RESP 18; TEMP 98.5; O2SAT 95
[2016-11-30] MEDS: ENOXAPARIN SODIUM 60 MG/0.6 ML SYRINGE SQ SCH ×2 (04:15→17:46)
[2016-11-30] MEDS: BACLOFEN 10 MG TAB PO SCH ×3 (05:56→21:55)
[2016-11-30 08:00] VITALS: BP 108/58; PULSE 61; RESP 17; TEMP 96.2; O2SAT 95
[2016-11-30] MEDS: LACTIC ACID (AMMONIUM LACTATE) 12% LOTION 225 GM BTL TOPICAL SCH ×2 (09:00→21:00)
[2016-11-30] MEDS: MUPIROCIN 2% OINT 22 GM TUBE TOPICAL SCH ×2 (09:00→21:00)
[2016-11-30] MEDS: NEOMYCIN/POLYMYXIN/BACITRACIN OINT 15 GM TUBE TOPICAL SCH ×2 (09:00→21:00)
[2016-11-30] MEDS: MULTIVITAMINS/IRON/MINERALS CHEWABLE TAB CHEW SCH (10:22)
[2016-11-30] MEDS: buPROPion HCL 100 MG TAB PO SCH ×2 (10:22→21:53)
[2016-11-30] MEDS: FERROUS SULFATE 325 MG (65 MG ELEMENTAL IRON) TAB PO SCH ×3 (10:22→17:41)
[2016-11-30] MEDS: ASCORBIC ACID 500 MG TAB PO SCH ×3 (10:22→17:41)
[2016-11-30] MEDS: CALCIUM/VITAMIN D 250 MG/125 U TAB PO SCH ×2 (10:23→21:53)
[2016-11-30] MEDS: METOPROLOL TARTRATE 25 MG TAB PO SCH ×2 (10:23→21:00)
[2016-11-30] MEDS: LORazepam 0.5 MG TAB PO PRN (10:23)
[2016-11-30] MEDS: FAMOTIDINE 20 MG TAB PO SCH ×2 (10:23→21:53)
[2016-11-30] MEDS: LACTOBACILLUS ACIDOPHILUS TAB PO SCH ×3 (10:23→17:41)
[2016-11-30] MEDS: FUROSEMIDE 20 MG TAB PO SCH (10:24)
[2016-11-30 12:00] VITALS: BP 117/70; PULSE 67; RESP 17; TEMP 95.7; O2SAT 95
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
[2016-11-30 16:00] VITALS: BP 130/57; PULSE 76; RESP 17; TEMP 96.7; O2SAT 98
[2016-11-30 20:00] VITALS: BP 116/56; PULSE 69; RESP 20; TEMP 96.3; O2SAT 97
[2016-12-01] VITALS: BP 114/57; PULSE 84; RESP 20; TEMP 98.4; O2SAT 97
[2016-12-01] MEDS: BACLOFEN 10 MG TAB PO SCH ×3 (04:56→21:17)
[2016-12-01] MEDS: ENOXAPARIN SODIUM 60 MG/0.6 ML SYRINGE SQ SCH ×2 (04:56→18:50)
[2016-12-01 07:33] LABS: HEMATOCRIT 33.2 % (39.0-51.0); MEAN CELL VOLUME 81.8 FL (80.0-100.0); MEAN CORPUSCULAR HEMOGLOBIN 26.9 PG (27.0-34.0); MEAN CORPUSCULAR HGB CONC 32.9 % (32.0-36.0); PLATELET COUNT 151 TH/MM3 (150-450); RED BLOOD COUNT 4.06 MIL/MM3 (4.50-5.90); RED CELL DISTRIBUTION WIDTH 16.5 % (11.6-17.2); REVIEW FLAG FINAL; WHITE BLOOD COUNT 5.7 TH/MM3 (4.0-11.0)
[2016-12-01 08:00] VITALS: BP 107/66; PULSE 68; RESP 16; TEMP 96.6; O2SAT 97
[2016-12-01 08:01] LABS: BICARBONATE 26.6 MEQ/L (21.0-32.0); POTASSIUM 3.7 MEQ/L (3.5-5.1)
[2016-12-01] MEDS: NEOMYCIN/POLYMYXIN/BACITRACIN OINT 15 GM TUBE TOPICAL SCH ×2 (09:00→21:00)
[2016-12-01] MEDS: MUPIROCIN 2% OINT 22 GM TUBE TOPICAL SCH ×2 (09:00→21:20)
[2016-12-01] MEDS: MULTIVITAMINS/IRON/MINERALS CHEWABLE TAB CHEW SCH (09:00)
[2016-12-01] MEDS: LACTIC ACID (AMMONIUM LACTATE) 12% LOTION 225 GM BTL TOPICAL SCH ×2 (09:00→21:00)
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
[2016-12-01 12:00] VITALS: BP 115/63; PULSE 54; RESP 16; TEMP 96.5; O2SAT 96
[2016-12-01] MEDS: LACTOBACILLUS ACIDOPHILUS TAB PO SCH ×3 (13:09→18:50)
[2016-12-01] MEDS: ASCORBIC ACID 500 MG TAB PO SCH ×3 (13:10→18:51)
[2016-12-01] MEDS: FERROUS SULFATE 325 MG (65 MG ELEMENTAL IRON) TAB PO SCH ×3 (13:10→18:50)
[2016-12-01] MEDS: buPROPion HCL 100 MG TAB PO SCH ×2 (13:12→21:17)
[2016-12-01] MEDS: FAMOTIDINE 20 MG TAB PO SCH ×2 (13:14→21:17)
[2016-12-01] MEDS: CALCIUM/VITAMIN D 250 MG/125 U TAB PO SCH ×2 (13:14→21:17)
[2016-12-01] MEDS: METOPROLOL TARTRATE 25 MG TAB PO SCH ×2 (13:14→21:17)
[2016-12-01] MEDS: FUROSEMIDE 20 MG TAB PO SCH (13:18)
[2016-12-01 16:00] VITALS: BP 119/61; PULSE 66; RESP 16; TEMP 96.7; O2SAT 97
[2016-12-01 20:00] VITALS: BP 125/60; PULSE 68; RESP 17; TEMP 99.3; O2SAT 98
[2016-12-02] VITALS: BP 120/68; PULSE 61; RESP 17; TEMP 98.2; O2SAT 98
[2016-12-02] MEDS: ENOXAPARIN SODIUM 60 MG/0.6 ML SYRINGE SQ SCH ×2 (05:30→15:31)
[2016-12-02] MEDS: BACLOFEN 10 MG TAB PO SCH (05:30)
[2016-12-02 08:00] VITALS: BP 117/74; PULSE 62; RESP 18; TEMP 97; O2SAT 99
[2016-12-02] MEDS: MUPIROCIN 2% OINT 22 GM TUBE TOPICAL SCH ×2 (09:00→21:00)
[2016-12-02] MEDS: MULTIVITAMINS/IRON/MINERALS CHEWABLE TAB CHEW SCH (09:00)
[2016-12-02] MEDS: NEOMYCIN/POLYMYXIN/BACITRACIN OINT 15 GM TUBE TOPICAL SCH ×2 (09:00→21:00)
[2016-12-02] MEDS: LORazepam 0.5 MG TAB PO PRN (09:53)
[2016-12-02] MEDS: FUROSEMIDE 20 MG TAB PO SCH ×2 (09:53→15:32)
[2016-12-02] MEDS: FERROUS SULFATE 325 MG (65 MG ELEMENTAL IRON) TAB PO SCH ×3 (09:53→18:46)
[2016-12-02] MEDS: ASCORBIC ACID 500 MG TAB PO SCH ×3 (09:53→18:46)
[2016-12-02] MEDS: buPROPion HCL 100 MG TAB PO SCH ×2 (09:53→22:15)
[2016-12-02] MEDS: LACTOBACILLUS ACIDOPHILUS TAB PO SCH ×3 (09:53→18:46)
[2016-12-02] MEDS: FAMOTIDINE 20 MG TAB PO SCH ×2 (09:54→22:16)
[2016-12-02] MEDS: CALCIUM/VITAMIN D 250 MG/125 U TAB PO SCH ×2 (09:54→22:16)
[2016-12-02] MEDS: METOPROLOL TARTRATE 25 MG TAB PO SCH ×2 (09:54→22:16)
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
[2016-12-02 12:00] VITALS: BP 124/62; PULSE 57; RESP 16; TEMP 96.1; O2SAT 97
[2016-12-02] MEDS: BACLOFEN 20 MG TAB PO SCH ×2 (15:45→22:15)
[2016-12-02] MEDS: LACTIC ACID (AMMONIUM LACTATE) 12% LOTION 225 GM BTL TOPICAL SCH ×2 (15:45→21:00)
[2016-12-02 16:00] VITALS: BP 131/62; PULSE 66; RESP 16; TEMP 97.1; O2SAT 97
[2016-12-02 20:00] VITALS: BP 130/81; PULSE 62; RESP 17; TEMP 96.8; O2SAT 98
[2016-12-03] VITALS: BP 121/73; PULSE 62; RESP 17; TEMP 96.4; O2SAT 98
[2016-12-03] MEDS: ENOXAPARIN SODIUM 60 MG/0.6 ML SYRINGE SQ SCH ×2 (04:57→17:03)
[2016-12-03] MEDS: BACLOFEN 20 MG TAB PO SCH ×2 (05:56→13:59)
[2016-12-03 08:00] VITALS: BP 120/58; PULSE 68; RESP 17; TEMP 95.6; O2SAT 99
[2016-12-03] MEDS: MUPIROCIN 2% OINT 22 GM TUBE TOPICAL SCH ×2 (09:00→20:32)
[2016-12-03] MEDS: NEOMYCIN/POLYMYXIN/BACITRACIN OINT 15 GM TUBE TOPICAL SCH ×2 (09:00→20:32)
[2016-12-03] MEDS: LACTIC ACID (AMMONIUM LACTATE) 12% LOTION 225 GM BTL TOPICAL SCH ×2 (09:00→20:31)
[2016-12-03] MEDS: FERROUS SULFATE 325 MG (65 MG ELEMENTAL IRON) TAB PO SCH ×3 (09:37→17:03)
[2016-12-03] MEDS: MULTIVITAMINS/IRON/MINERALS CHEWABLE TAB CHEW SCH (09:37)
[2016-12-03] MEDS: CALCIUM/VITAMIN D 250 MG/125 U TAB PO SCH ×2 (09:37→20:28)
[2016-12-03] MEDS: buPROPion HCL 100 MG TAB PO SCH ×2 (09:37→20:29)
[2016-12-03] MEDS: LACTOBACILLUS ACIDOPHILUS TAB PO SCH ×3 (09:37→17:02)
[2016-12-03] MEDS: FAMOTIDINE 20 MG TAB PO SCH ×2 (09:37→20:30)
[2016-12-03] MEDS: ASCORBIC ACID 500 MG TAB PO SCH ×3 (09:38→17:03)
[2016-12-03] MEDS: LORazepam 0.5 MG TAB PO PRN (09:38)
[2016-12-03] MEDS: METOPROLOL TARTRATE 25 MG TAB PO SCH ×2 (09:38→20:29)
[2016-12-03] MEDS: ERGOCALCIFEROL (VIT D2) 50,000 UNIT CAP PO SCH (09:38)
[2016-12-03] MEDS: ONDANSETRON ODT 4 MG TAB PO PRN ×2 (09:45→17:04)
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
[2016-12-03 12:00] VITALS: BP 122/75; PULSE 60; RESP 18; TEMP 95.6; O2SAT 99
[2016-12-03] MEDS: FUROSEMIDE 20 MG TAB PO SCH ×2 (14:05→17:11)
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
[2016-12-03 16:00] VITALS: BP 138/66; PULSE 59; RESP 17; TEMP 96.3; O2SAT 97
[2016-12-03 20:25] VITALS: BP 128/59; PULSE 70; RESP 18; TEMP 96.5; O2SAT 98
[2016-12-03] MEDS: BACLOFEN 10 MG TAB PO SCH (20:32)
[2016-12-04 00:27] VITALS: BP 125/75; PULSE 70; RESP 20; TEMP 97.5; O2SAT 98
[2016-12-04] MEDS: ENOXAPARIN SODIUM 60 MG/0.6 ML SYRINGE SQ SCH ×2 (04:17→15:45)
[2016-12-04] MEDS: BACLOFEN 10 MG TAB PO SCH ×3 (06:00→22:00)
[2016-12-04 08:00] VITALS: BP 109/55; PULSE 55; RESP 17; TEMP 95.6; O2SAT 98
[2016-12-04] MEDS: FUROSEMIDE 20 MG TAB PO SCH ×2 (08:51→15:40)
[2016-12-04] MEDS: buPROPion HCL 100 MG TAB PO SCH ×2 (08:53→21:37)
[2016-12-04] MEDS: LORazepam 0.5 MG TAB PO PRN (08:53)
[2016-12-04] MEDS: CALCIUM/VITAMIN D 250 MG/125 U TAB PO SCH ×2 (08:53→21:37)
[2016-12-04] MEDS: ASCORBIC ACID 500 MG TAB PO SCH ×3 (08:54→17:44)
[2016-12-04] MEDS: METOPROLOL TARTRATE 25 MG TAB PO SCH ×2 (08:54→21:38)
[2016-12-04] MEDS: LACTOBACILLUS ACIDOPHILUS TAB PO SCH ×3 (08:54→17:44)
[2016-12-04] MEDS: FERROUS SULFATE 325 MG (65 MG ELEMENTAL IRON) TAB PO SCH ×3 (08:54→17:44)
[2016-12-04] MEDS: MULTIVITAMINS/IRON/MINERALS CHEWABLE TAB CHEW SCH (08:54)
[2016-12-04] MEDS: FAMOTIDINE 20 MG TAB PO SCH ×2 (08:54→21:38)
[2016-12-04] MEDS: MUPIROCIN 2% OINT 22 GM TUBE TOPICAL SCH ×2 (08:59→21:00)
[2016-12-04] MEDS: LACTIC ACID (AMMONIUM LACTATE) 12% LOTION 225 GM BTL TOPICAL SCH ×2 (09:00→21:00)
[2016-12-04] MEDS: NEOMYCIN/POLYMYXIN/BACITRACIN OINT 15 GM TUBE TOPICAL SCH ×2 (09:00→21:00)
[2016-12-04 12:00] VITALS: BP 122/60; PULSE 61; RESP 18; TEMP 95.1; O2SAT 97
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
[2016-12-04 16:00] VITALS: BP 129/70; PULSE 60; RESP 16; TEMP 96.6; O2SAT 99
[2016-12-04 20:00] VITALS: BP 149/66; PULSE 68; RESP 20; TEMP 97.4; O2SAT 98
[2016-12-05] VITALS: BP 121/57; PULSE 75; RESP 17; TEMP 95.4; O2SAT 99
[2016-12-05] MEDS: ONDANSETRON ODT 4 MG TAB PO PRN ×2 (01:44→01:45)
[2016-12-05] MEDS: ENOXAPARIN SODIUM 60 MG/0.6 ML SYRINGE SQ SCH ×2 (03:11→15:50)
[2016-12-05] MEDS: BACLOFEN 10 MG TAB PO SCH (05:51)
[2016-12-05 08:00] VITALS: BP 112/57; PULSE 63; RESP 17; TEMP 97.3; O2SAT 98
[2016-12-05] MEDS: FAMOTIDINE 20 MG TAB PO SCH ×2 (08:41→21:58)
[2016-12-05] MEDS: CALCIUM/VITAMIN D 250 MG/125 U TAB PO SCH ×2 (08:41→21:58)
[2016-12-05] MEDS: FERROUS SULFATE 325 MG (65 MG ELEMENTAL IRON) TAB PO SCH ×3 (08:41→17:52)
[2016-12-05] MEDS: ASCORBIC ACID 500 MG TAB PO SCH ×3 (08:41→17:52)
[2016-12-05] MEDS: MULTIVITAMINS/IRON/MINERALS CHEWABLE TAB CHEW SCH (08:41)
[2016-12-05] MEDS: METOPROLOL TARTRATE 25 MG TAB PO SCH ×2 (08:41→21:58)
[2016-12-05] MEDS: LACTOBACILLUS ACIDOPHILUS TAB PO SCH ×3 (08:41→17:52)
[2016-12-05] MEDS: buPROPion HCL 100 MG TAB PO SCH ×2 (08:41→21:58)
[2016-12-05] MEDS: FUROSEMIDE 20 MG TAB PO SCH ×2 (08:42→15:52)
[2016-12-05] MEDS: NEOMYCIN/POLYMYXIN/BACITRACIN OINT 15 GM TUBE TOPICAL SCH ×2 (08:49→22:00)
[2016-12-05] MEDS: LACTIC ACID (AMMONIUM LACTATE) 12% LOTION 225 GM BTL TOPICAL SCH ×2 (08:49→22:00)
[2016-12-05] MEDS: MUPIROCIN 2% OINT 22 GM TUBE TOPICAL SCH ×2 (08:49→22:00)
[2016-12-05] MEDS: LORazepam 0.5 MG TAB PO PRN (10:19)
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
[2016-12-05 12:00] VITALS: BP 117/55; PULSE 63; RESP 17; TEMP 96.6; O2SAT 95
[2016-12-05] MEDS: CARISOPRODOL 350 MG TAB PO PRN ×2 (12:30→23:45)
[2016-12-05] MEDS: POLYETHYLENE GLYCOL 17 GM PKG PO SCH (12:30)
[2016-12-05 16:00] VITALS: BP 118/60; PULSE 69; RESP 17; TEMP 97.1; O2SAT 98
--- NOTE | 2016-12-05 16:15 | RADRPT ---
EXAM DATE/TIME: 12/05/2016 15:07 [place] COMPARISON: No previous studies available for comparison. INDICATIONS : Bilateral leg edema. MEDICAL HISTORY : Bilateral lower extremity venous stasis. Chronic back pain. Substance use. C-diff. MRSA. SURGICAL HISTORY : None. ENCOUNTER: [facility] ACUITY: 1 day PAIN SCORE: 6/10 LOCATION: Bilateral legs. TECHNIQUE: Venous ultrasound of the left and right leg was performed from the inguinal ligament to the proximal calf. Real-time, color Doppler and spectral tracing, compression and augmentation techniques were us ed. FINDINGS: RIGHT LEG: There is normal compressibility of the deep venous system from the inguinal region to the proximal ca lf. No echogenic clot is seen in the lumen of the common femoral, femoral, popliteal, and posterior tibial veins. There is a normal response of the venous system to proximal and distal augmentation an d respiration. LEFT LEG: There is normal compressibility of the deep venous system from the inguinal region to the proximal ca lf. No echogenic clot is seen in the lumen of the common femoral, femoral, popliteal, and posterior tibial veins. There is a normal response of the venous system to proximal and distal augmentation an d respiration. CONCLUSION: 1. No DVT observed. Christian Navarro Jr., MD on December 05, 2016 at 16:12 Board Certified Radiologist. This report was verified electronically.
[2016-12-05 20:00] VITALS: BP 130/63; PULSE 76; RESP 16; TEMP 95.8; O2SAT 98
[2016-12-06] VITALS: BP 135/63; PULSE 75; RESP 16; TEMP 95; O2SAT 98
[2016-12-06] MEDS: ENOXAPARIN SODIUM 60 MG/0.6 ML SYRINGE SQ SCH ×2 (05:10→17:32)
[2016-12-06 08:00] VITALS: BP 106/60; PULSE 67; RESP 16; TEMP 96.9; O2SAT 99
[2016-12-06] MEDS: LACTIC ACID (AMMONIUM LACTATE) 12% LOTION 225 GM BTL TOPICAL SCH ×2 (09:00→20:21)
[2016-12-06] MEDS: FUROSEMIDE 20 MG TAB PO SCH ×2 (09:00→15:38)
[2016-12-06] MEDS: NEOMYCIN/POLYMYXIN/BACITRACIN OINT 15 GM TUBE TOPICAL SCH ×2 (09:00→20:21)
[2016-12-06] MEDS: buPROPion HCL 100 MG TAB PO SCH ×2 (09:36→20:20)
[2016-12-06] MEDS: CALCIUM/VITAMIN D 250 MG/125 U TAB PO SCH ×2 (09:36→20:20)
[2016-12-06] MEDS: MULTIVITAMINS/IRON/MINERALS CHEWABLE TAB CHEW SCH (09:36)
[2016-12-06] MEDS: FAMOTIDINE 20 MG TAB PO SCH ×2 (09:36→20:20)
[2016-12-06] MEDS: LACTOBACILLUS ACIDOPHILUS TAB PO SCH ×3 (09:37→17:32)
[2016-12-06] MEDS: POLYETHYLENE GLYCOL 17 GM PKG PO SCH (09:37)
[2016-12-06] MEDS: ASCORBIC ACID 500 MG TAB PO SCH ×3 (09:37→17:32)
[2016-12-06] MEDS: FERROUS SULFATE 325 MG (65 MG ELEMENTAL IRON) TAB PO SCH ×3 (09:37→17:32)
[2016-12-06] MEDS: LORazepam 0.5 MG TAB PO PRN (09:38)
[2016-12-06] MEDS: MUPIROCIN 2% OINT 22 GM TUBE TOPICAL SCH ×2 (09:45→20:21)
[2016-12-06 12:00] VITALS: BP 127/69; PULSE 70; RESP 16; TEMP 96.8; O2SAT 100
[2016-12-06] MEDS: CARISOPRODOL 350 MG TAB PO PRN ×2 (12:00→20:20)
--- NOTE | 2016-12-06 12:02 | PD.WCN.NOT ---
Wound Consult Description: Consult placed for wound management of skin breakdown of buttocks, ordered by Dayron CORDOVA Communicated with: RN Keila [place] Recommendation: Cleanse buttock area with soap and water and pat dry and apply thick layer of Calazime barrier cream BID and PRN. Do not scrub barrier cream off of patient when cleaning patient. OK to leave some barrier cream in place and layer cream on patient Additional Information: Patient seen on for evaluation of skin break down to buttocks. Patient is known to inpatient wound care and has been seen before during this hospital admission.Patient is a morbidly obese man. He is noted laying in bariatric specialty bed.Patient turned self to R side with no assistance, to reveal denuded, peeling blanchable erythema that is moist, additionally skin is noted with scattered small areas of partial thickness skin loss to bilateral buttock area. Physical therapy is in the room during assessment. Attempted to change soiled bed linens, patient refused states, "They will change my bed linens when I am up with P.T." RN to obtain and apply Calazime barrier cream.Observed multiple packages of Romen noodle soup and packages of candy in room.Patient may need additional dietary support. Rossi Judge [facility] Dec 06, 2016 12:02
[2016-12-06] MEDS: METOPROLOL TARTRATE 25 MG TAB PO SCH ×2 (12:06→20:20)
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
[2016-12-06 16:00] VITALS: BP 130/67; PULSE 77; RESP 16; TEMP 95.4; O2SAT 99
[2016-12-06 20:00] VITALS: BP 123/64; PULSE 76; RESP 18; TEMP 98.1; O2SAT 99
[2016-12-07] VITALS: BP 115/62; PULSE 70; RESP 18; TEMP 96.7; O2SAT 98
[2016-12-07] MEDS: ENOXAPARIN SODIUM 60 MG/0.6 ML SYRINGE SQ SCH ×2 (04:12→16:53)
[2016-12-07 08:00] VITALS: BP 104/58; PULSE 65; RESP 17; TEMP 95.7; O2SAT 99
[2016-12-07] MEDS: LACTOBACILLUS ACIDOPHILUS TAB PO SCH ×3 (08:27→16:55)
[2016-12-07] MEDS: MULTIVITAMINS/IRON/MINERALS CHEWABLE TAB CHEW SCH (08:28)
[2016-12-07] MEDS: FAMOTIDINE 20 MG TAB PO SCH ×2 (08:28→23:30)
[2016-12-07] MEDS: FERROUS SULFATE 325 MG (65 MG ELEMENTAL IRON) TAB PO SCH ×3 (08:28→16:55)
[2016-12-07] MEDS: buPROPion HCL 100 MG TAB PO SCH ×2 (08:28→23:30)
[2016-12-07] MEDS: METOPROLOL TARTRATE 25 MG TAB PO SCH ×2 (08:28→23:30)
[2016-12-07] MEDS: ASCORBIC ACID 500 MG TAB PO SCH ×3 (08:29→16:55)
[2016-12-07] MEDS: CARISOPRODOL 350 MG TAB PO PRN ×2 (08:29→16:53)
[2016-12-07] MEDS: FUROSEMIDE 20 MG TAB PO SCH ×2 (08:29→16:00)
[2016-12-07] MEDS: POLYETHYLENE GLYCOL 17 GM PKG PO SCH (08:33)
[2016-12-07] MEDS: LACTIC ACID (AMMONIUM LACTATE) 12% LOTION 225 GM BTL TOPICAL SCH ×2 (08:33→21:00)
[2016-12-07] MEDS: CALCIUM/VITAMIN D 250 MG/125 U TAB PO SCH ×2 (08:33→23:30)
[2016-12-07] MEDS: NEOMYCIN/POLYMYXIN/BACITRACIN OINT 15 GM TUBE TOPICAL SCH ×2 (08:33→21:00)
[2016-12-07] MEDS: MUPIROCIN 2% OINT 22 GM TUBE TOPICAL SCH ×2 (08:33→21:00)
[2016-12-07] MEDS: LORazepam 0.5 MG TAB PO PRN (11:02)
[2016-12-07 12:00] VITALS: BP 126/75; PULSE 66; RESP 18; TEMP 96.9; O2SAT 97
--- NOTE | 2016-12-07 12:27 | HHI.PR ---
Neuropsych Emotional Emotional: Intact: Emotional, Depressed/Sad, Hostile/Resentful, Irritable/Angry /Frustrate, Labile, Constricted/Blunted, Moderate: Anxious/Fearful Behavior Behavior: Intact: Behavior, Coping/Acceptance, Impulsive/Agitated, Suicidal/ Homicidal Risk, Mild: Cooperative w/ Treatment, Motivation, Moderate: Frustration Tolerance/[place] Cognitive Cognitive: Intact: Cognitive, Attention/Concentration, Confused/Orientation, Insight/Awareness, Judgement/Problem-Solving, Memory Psychosocial Psychosocial: Intact: Psychosocial, Family/Other Adjustment, Realistic Expectation, Self-Esteem/Confidence Progress Notes/Response to Tx Contents of Sessions: Adjustment Time with Patient: 30 minutes Premorbid psychological status Premorbid Cognitive, Emotional and Behavioral Status: Stable. The patient has high school years of education and a solid work history prior to this injury. The patient has no known psychiatric difficulties, as described above. He has been treated for depression since his admission. Substance abuse history is currently unremarkable. Behavioral Reactions of Patient and Family/Support System: Stable. The patient s family is experiencing ongoing issues of adjustment given the nature of the injury, and this aspect of recovery will require ongoing monitoring. Emotional/Behavioral Status of Patient and Family/Support System: Stable. Pertinent issues, if appropriate to this patients clinical care, are described in detail above. Maximizing acute care outcome This patient has been hospitalized for over a year. He has significant anxiety issues related to falling. He has a prior history of antisocial personality disorder with incarceration in the past, but he has been relatively stable since his release. He will need psychological follow-up as we work on the transition to getting consistently OOB and transfer to [facility] for more comprehensive rehabilitation. Anticipated Problems Ongoing areas of concern will include anger, behavioral impulsivity, lack of insight and judgment, which is expected to improve with time and treatment. Treatment Plan This clinician will continue to follow with you throughout the course of this patients rehabilitation treatment, and I will be available to meet with the patients family/support system to facilitate their understanding and the ongoing care of their family member. The goals of neuropsychological intervention shall be both educational and supportive to the family/support system as is deemed clinically appropriate. Impression 41 year old morbidly obese male with complicated medical history resulting in his hospitalization here at [facility] for over one year. Diagnosis: (1) Antisocial personality disorder in adult (2) Anxiety disorder, unspecified Status: Acute Progress Note Narrative Ongoing follow-up of patient seen bedside alone, and also with treatment team consisting of PT, Dr. Bermudez and David Moreira. The patient is noticeably anxious about increasing level of therapy participation. I provided him psychological support and encouragement and consistency as this process will continue. Discussed with Dr. Bermudez about pharmacological management of his anxiety disorder in light of the chronicity of his current medication regimen. I will continue to follow. Problem Qualifiers (1) Anxiety disorder, unspecified: Qualified Codes: F41.1 - Generalized anxiety disorder John Troncoso PhD Dec 07, 2016 12:27 pm
[2016-12-07 16:00] VITALS: BP 113/61; PULSE 76; RESP 18; TEMP 97.6; O2SAT 100
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
[2016-12-07 20:00] VITALS: BP 118/64; PULSE 74; RESP 18; TEMP 96.9; O2SAT 99
[2016-12-08] VITALS: BP 119/58; PULSE 78; RESP 18; TEMP 97.8; O2SAT 99
[2016-12-08] MEDS: CARISOPRODOL 350 MG TAB PO PRN ×3 (00:32→17:32)
[2016-12-08] MEDS: ENOXAPARIN SODIUM 60 MG/0.6 ML SYRINGE SQ SCH ×2 (04:00→16:04)
[2016-12-08 08:00] VITALS: BP 125/57; PULSE 64; RESP 18; TEMP 96.9; O2SAT 99
[2016-12-08] MEDS: CALCIUM/VITAMIN D 250 MG/125 U TAB PO SCH ×2 (08:55→21:31)
[2016-12-08] MEDS: FAMOTIDINE 20 MG TAB PO SCH ×2 (08:55→21:31)
[2016-12-08] MEDS: MULTIVITAMINS/IRON/MINERALS CHEWABLE TAB CHEW SCH (08:55)
[2016-12-08] MEDS: LACTOBACILLUS ACIDOPHILUS TAB PO SCH ×3 (08:55→16:16)
[2016-12-08] MEDS: ASCORBIC ACID 500 MG TAB PO SCH ×3 (08:55→16:16)
[2016-12-08] MEDS: buPROPion HCL 100 MG TAB PO SCH ×2 (08:55→21:31)
[2016-12-08] MEDS: FERROUS SULFATE 325 MG (65 MG ELEMENTAL IRON) TAB PO SCH ×3 (08:55→16:16)
[2016-12-08] MEDS: METOPROLOL TARTRATE 25 MG TAB PO SCH ×2 (08:56→21:31)
[2016-12-08] MEDS: FUROSEMIDE 20 MG TAB PO SCH ×2 (08:56→16:09)
[2016-12-08] MEDS: LACTIC ACID (AMMONIUM LACTATE) 12% LOTION 225 GM BTL TOPICAL SCH ×2 (08:57→21:00)
[2016-12-08] MEDS: MUPIROCIN 2% OINT 22 GM TUBE TOPICAL SCH ×2 (08:57→21:00)
[2016-12-08] MEDS: POLYETHYLENE GLYCOL 17 GM PKG PO SCH (08:57)
[2016-12-08] MEDS: NEOMYCIN/POLYMYXIN/BACITRACIN OINT 15 GM TUBE TOPICAL SCH ×2 (08:57→21:00)
[2016-12-08] MEDS: clonazePAM 0.5 MG TAB PO PRN (11:17)
[2016-12-08 12:00] VITALS: BP 129/67; PULSE 68; RESP 19; TEMP 97.1; O2SAT 99
[2016-12-08 16:00] VITALS: BP 127/63; PULSE 73; RESP 19; TEMP 96.8; O2SAT 99
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
[2016-12-08 20:00] VITALS: BP 111/59; PULSE 72; RESP 22; TEMP 98.3; O2SAT 97
[2016-12-09] VITALS: BP 104/59; PULSE 74; RESP 22; TEMP 98.4; O2SAT 98
[2016-12-09] MEDS: CARISOPRODOL 350 MG TAB PO PRN ×3 (01:07→18:14)
[2016-12-09] MEDS: ENOXAPARIN SODIUM 60 MG/0.6 ML SYRINGE SQ SCH ×2 (03:59→17:23)
[2016-12-09 08:00] VITALS: BP 132/68; PULSE 68; RESP 17; TEMP 98; O2SAT 100
[2016-12-09] MEDS: NEOMYCIN/POLYMYXIN/BACITRACIN OINT 15 GM TUBE TOPICAL SCH ×2 (09:00→21:00)
[2016-12-09] MEDS: POLYETHYLENE GLYCOL 17 GM PKG PO SCH (09:00)
[2016-12-09] MEDS: LACTIC ACID (AMMONIUM LACTATE) 12% LOTION 225 GM BTL TOPICAL SCH ×2 (09:00→21:00)
[2016-12-09] MEDS: MUPIROCIN 2% OINT 22 GM TUBE TOPICAL SCH ×2 (09:00→21:00)
[2016-12-09] MEDS: METOPROLOL TARTRATE 25 MG TAB PO SCH ×2 (09:15→21:43)
[2016-12-09] MEDS: LACTOBACILLUS ACIDOPHILUS TAB PO SCH ×3 (09:15→17:23)
[2016-12-09] MEDS: ASCORBIC ACID 500 MG TAB PO SCH ×3 (09:15→17:23)
[2016-12-09] MEDS: MULTIVITAMINS/IRON/MINERALS CHEWABLE TAB CHEW SCH (09:15)
[2016-12-09] MEDS: CALCIUM/VITAMIN D 250 MG/125 U TAB PO SCH ×2 (09:15→21:43)
[2016-12-09] MEDS: FERROUS SULFATE 325 MG (65 MG ELEMENTAL IRON) TAB PO SCH ×3 (09:15→17:23)
[2016-12-09] MEDS: FAMOTIDINE 20 MG TAB PO SCH ×2 (09:19→21:43)
[2016-12-09] MEDS: buPROPion HCL 100 MG TAB PO SCH ×2 (09:19→21:43)
[2016-12-09] MEDS: FUROSEMIDE 20 MG TAB PO SCH ×2 (09:20→17:23)
[2016-12-09] MEDS: clonazePAM 0.5 MG TAB PO PRN (09:23)
[2016-12-09 12:00] VITALS: BP 127/70; PULSE 77; RESP 19; TEMP 97.9; O2SAT 98
[2016-12-09 16:00] VITALS: BP 126/69; PULSE 72; RESP 18; TEMP 96.8; O2SAT 100
[2016-12-09 20:00] VITALS: BP 126/59; PULSE 70; RESP 18; TEMP 96.5; O2SAT 98
[2016-12-10 01:07] VITALS: BP 129/63; PULSE 70; RESP 18; TEMP 97.3; O2SAT 96
[2016-12-10] MEDS: CARISOPRODOL 350 MG TAB PO PRN ×3 (02:08→23:22)
[2016-12-10] MEDS: ENOXAPARIN SODIUM 60 MG/0.6 ML SYRINGE SQ SCH ×2 (02:10→16:31)
[2016-12-10 08:00] VITALS: BP 120/61; PULSE 67; RESP 16; TEMP 97.1; O2SAT 98
[2016-12-10] MEDS: METOPROLOL TARTRATE 25 MG TAB PO SCH ×2 (08:59→23:22)
[2016-12-10] MEDS: FAMOTIDINE 20 MG TAB PO SCH ×2 (08:59→23:22)
[2016-12-10] MEDS: MULTIVITAMINS/IRON/MINERALS CHEWABLE TAB CHEW SCH (08:59)
[2016-12-10] MEDS: CALCIUM/VITAMIN D 250 MG/125 U TAB PO SCH ×2 (08:59→23:22)
[2016-12-10] MEDS: LACTOBACILLUS ACIDOPHILUS TAB PO SCH (08:59)
[2016-12-10] MEDS: POLYETHYLENE GLYCOL 17 GM PKG PO SCH (08:59)
[2016-12-10] MEDS: FERROUS SULFATE 325 MG (65 MG ELEMENTAL IRON) TAB PO SCH ×3 (08:59→16:31)
[2016-12-10] MEDS: DULoxetine HCl DR 30 MG CAP PO SCH (08:59)
[2016-12-10] MEDS: ASCORBIC ACID 500 MG TAB PO SCH ×3 (08:59→16:31)
[2016-12-10] MEDS: NEOMYCIN/POLYMYXIN/BACITRACIN OINT 15 GM TUBE TOPICAL SCH ×2 (09:00→23:28)
[2016-12-10] MEDS: MUPIROCIN 2% OINT 22 GM TUBE TOPICAL SCH ×2 (09:00→23:28)
[2016-12-10] MEDS: LACTIC ACID (AMMONIUM LACTATE) 12% LOTION 225 GM BTL TOPICAL SCH ×2 (09:00→23:28)
[2016-12-10] MEDS: FUROSEMIDE 20 MG TAB PO SCH ×2 (09:05→16:31)
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
[2016-12-10] MEDS: clonazePAM 0.5 MG TAB PO PRN (10:17)
[2016-12-10 12:00] VITALS: BP 118/57; PULSE 69; RESP 17; TEMP 96.7; O2SAT 97
--- NOTE | 2016-12-10 13:12 | HHI.PR ---
Neuropsych Emotional Emotional: Moderate: Anxious/Fearful Behavior Behavior: Intact: Coping/Acceptance, Cooperative w/ Treatment, Motivation Cognitive Cognitive: Intact: Cognitive, Attention/Concentration, Confused/Orientation, Insight/Awareness, Judgement/Problem-Solving, Memory Progress Notes/Response to Tx Contents of Sessions: Adjustment Time with Patient: 30 minutes Premorbid psychological status Premorbid Cognitive, Emotional and Behavioral Status: Stable. The patient has high school years of education and a solid work history prior to this injury. The patient has no known psychiatric difficulties, as described above. He has been treated for depression since his admission. Substance abuse history is currently unremarkable. Behavioral Reactions of Patient and Family/Support System: Stable. The patient s family is experiencing ongoing issues of adjustment given the nature of the injury, and this aspect of recovery will require ongoing monitoring. Emotional/Behavioral Status of Patient and Family/Support System: Stable. Pertinent issues, if appropriate to this patients clinical care, are described in detail above. Maximizing acute care outcome This patient has been hospitalized for over a year. He has significant anxiety issues related to falling. He has a prior history of antisocial personality disorder with incarceration in the past, but he has been relatively stable since his release. He will need psychological follow-up as we work on the transition to getting consistently OOB and transfer to [facility] for more comprehensive rehabilitation. Anticipated Problems Ongoing areas of concern will include anger, behavioral impulsivity, lack of insight and judgment, which is expected to improve with time and treatment. Treatment Plan This clinician will continue to follow with you throughout the course of this patients rehabilitation treatment, and I will be available to meet with the patients family/support system to facilitate their understanding and the ongoing care of their family member. The goals of neuropsychological intervention shall be both educational and supportive to the family/support system as is deemed clinically appropriate. Impression 41 year old morbidly obese male with complicated medical history resulting in his hospitalization here at [facility] for over one year. Diagnosis: (1) Antisocial personality disorder in adult (2) Anxiety disorder, unspecified Status: Acute Progress Note Narrative Ongoing follow-up of patient seen in hospital room, along with PT. The patient was compliant and participatory in effort to get him OOB for 2 hours. He complained that the medication change was "too much" and he felt lethargic. He was told that a new antidepressant medication is being started, and he was in agreement. Discussed with issue with the anxiety medication with Dr. Bermudez. I will continue to follow along in order to ensure an optimal treatment outcome. Problem Qualifiers (1) Anxiety disorder, unspecified: Qualified Codes: F41.1 - Generalized anxiety disorder John Troncoso PhD Dec 10, 2016 1:11 pm
[2016-12-10 16:00] VITALS: BP 114/56; PULSE 67; RESP 16; TEMP 96; O2SAT 97
[2016-12-10 20:00] VITALS: BP 115/60; PULSE 74; RESP 18; TEMP 97.6; O2SAT 98
[2016-12-11] VITALS: BP 118/67; PULSE 73; RESP 18; TEMP 97; O2SAT 97
[2016-12-11] MEDS: ENOXAPARIN SODIUM 60 MG/0.6 ML SYRINGE SQ SCH ×2 (05:55→16:00)
[2016-12-11 08:00] VITALS: BP 99/57; PULSE 55; RESP 20; TEMP 97.6; O2SAT 97
[2016-12-11] MEDS: FAMOTIDINE 20 MG TAB PO SCH ×2 (09:00→21:38)
[2016-12-11] MEDS: FUROSEMIDE 20 MG TAB PO SCH ×2 (09:00→16:00)
[2016-12-11] MEDS: NEOMYCIN/POLYMYXIN/BACITRACIN OINT 15 GM TUBE TOPICAL SCH ×2 (09:00→21:00)
[2016-12-11] MEDS: POLYETHYLENE GLYCOL 17 GM PKG PO SCH (09:00)
[2016-12-11] MEDS: MUPIROCIN 2% OINT 22 GM TUBE TOPICAL SCH ×2 (09:00→21:40)
[2016-12-11] MEDS: LACTIC ACID (AMMONIUM LACTATE) 12% LOTION 225 GM BTL TOPICAL SCH ×2 (09:00→21:40)
[2016-12-11] MEDS: clonazePAM 0.5 MG TAB PO PRN (10:23)
[2016-12-11] MEDS: MULTIVITAMINS/IRON/MINERALS CHEWABLE TAB CHEW SCH (10:23)
[2016-12-11] MEDS: ASCORBIC ACID 500 MG TAB PO SCH ×3 (10:24→17:54)
[2016-12-11] MEDS: CALCIUM/VITAMIN D 250 MG/125 U TAB PO SCH ×2 (10:24→21:38)
[2016-12-11] MEDS: METOPROLOL TARTRATE 25 MG TAB PO SCH ×2 (10:24→21:00)
[2016-12-11] MEDS: DULoxetine HCl DR 30 MG CAP PO SCH (10:24)
[2016-12-11] MEDS: FERROUS SULFATE 325 MG (65 MG ELEMENTAL IRON) TAB PO SCH ×3 (10:24→17:53)
[2016-12-11] MEDS: CARISOPRODOL 350 MG TAB PO PRN ×2 (10:24→17:53)
[2016-12-11 12:00] VITALS: BP 112/59; PULSE 65; RESP 18; TEMP 97; O2SAT 97
--- NOTE | 2016-12-11 13:55 | HHI.PR ---
Neuropsych Emotional Emotional: Moderate: Anxious/Fearful Behavior Behavior: Intact: Coping/Acceptance, Cooperative w/ Treatment, Motivation Cognitive Cognitive: Intact: Cognitive, Attention/Concentration, Confused/Orientation, Insight/Awareness, Judgement/Problem-Solving, Memory Progress Notes/Response to Tx Contents of Sessions: Adjustment Time with Patient: 45 minutes Premorbid psychological status Premorbid Cognitive, Emotional and Behavioral Status: Stable. The patient has high school years of education and a solid work history prior to this injury. The patient has no known psychiatric difficulties, as described above. He has been treated for depression since his admission. Substance abuse history is currently unremarkable. Behavioral Reactions of Patient and Family/Support System: Stable. The patient s family is experiencing ongoing issues of adjustment given the nature of the injury, and this aspect of recovery will require ongoing monitoring. Emotional/Behavioral Status of Patient and Family/Support System: Stable. Pertinent issues, if appropriate to this patients clinical care, are described in detail above. Maximizing acute care outcome This patient has been hospitalized for over a year. He has significant anxiety issues related to falling. He has a prior history of antisocial personality disorder with incarceration in the past, but he has been relatively stable since his release. He will need psychological follow-up as we work on the transition to getting consistently O and [facility]. Anticipated Problems Ongoing areas of concern will include anger, behavioral impulsivity, lack of insight and judgment, which is expected to improve with time and treatment. Treatment Plan This clinician will continue to follow with you throughout the course of this patients rehabilitation treatment, and I will be available to meet with the patients family/support system to facilitate their understanding and the ongoing care of their family member. The goals of neuropsychological intervention shall be both educational and supportive to the family/support system as is deemed clinically appropriate. Impression 41 year old morbidly obese male with complicated medical history resulting in his hospitalization here at [facility] for over one year. Diagnosis: (1) Antisocial personality disorder in adult (2) Anxiety disorder, unspecified Status: Acute Progress Note Narrative Ongoing follow-up with patient, co-treatment with PT. Worked with patient on developing language to describe his anxiety level as his therapy sessions focus more on improving his mobility. The patient becomes anxious, feeling he is going to fall, which then prevents him from succeeding in therapy endeavors. Provided encouragement, and social support. I will continue to follow. Problem Qualifiers (1) Anxiety disorder, unspecified: Qualified Codes: F41.1 - Generalized anxiety disorder John Troncoso PhD Dec 11, 2016 1:55 pm
[2016-12-11 15:59] VITALS: BP 120/57; PULSE 69; RESP 18; TEMP 97.8; O2SAT 96
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
[2016-12-11 20:00] VITALS: BP 140/73; PULSE 66; RESP 20; TEMP 97.9; O2SAT 98
[2016-12-12] VITALS: BP 129/60; PULSE 69; RESP 22; TEMP 98.8; O2SAT 98
[2016-12-12] MEDS: ENOXAPARIN SODIUM 60 MG/0.6 ML SYRINGE SQ SCH ×2 (03:21→16:16)
[2016-12-12 08:00] VITALS: BP 119/71; PULSE 56; RESP 16; TEMP 96.9; O2SAT 99
[2016-12-12] MEDS: LACTIC ACID (AMMONIUM LACTATE) 12% LOTION 225 GM BTL TOPICAL SCH ×2 (09:00→21:00)
[2016-12-12] MEDS: FUROSEMIDE 20 MG TAB PO SCH ×2 (09:00→16:00)
[2016-12-12] MEDS: NEOMYCIN/POLYMYXIN/BACITRACIN OINT 15 GM TUBE TOPICAL SCH ×2 (09:00→21:00)
[2016-12-12] MEDS: POLYETHYLENE GLYCOL 17 GM PKG PO SCH (09:00)
[2016-12-12] MEDS: MUPIROCIN 2% OINT 22 GM TUBE TOPICAL SCH ×2 (09:00→21:00)
[2016-12-12] MEDS: CARISOPRODOL 350 MG TAB PO PRN ×2 (10:17→18:23)
[2016-12-12] MEDS: METOPROLOL TARTRATE 25 MG TAB PO SCH ×2 (10:17→22:30)
[2016-12-12] MEDS: MULTIVITAMINS/IRON/MINERALS CHEWABLE TAB CHEW SCH (10:18)
[2016-12-12] MEDS: CALCIUM/VITAMIN D 250 MG/125 U TAB PO SCH ×2 (10:18→22:30)
[2016-12-12] MEDS: FAMOTIDINE 20 MG TAB PO SCH ×2 (10:18→22:30)
[2016-12-12] MEDS: DULoxetine HCl DR 30 MG CAP PO SCH (10:18)
[2016-12-12] MEDS: FERROUS SULFATE 325 MG (65 MG ELEMENTAL IRON) TAB PO SCH ×3 (10:18→18:23)
[2016-12-12] MEDS: clonazePAM 0.5 MG TAB PO PRN (10:18)
[2016-12-12] MEDS: ASCORBIC ACID 500 MG TAB PO SCH ×3 (10:18→18:22)
[2016-12-12] MEDS: PILL SPLITTER OTHER PRN (10:22)
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
[2016-12-12 12:00] VITALS: BP 117/70; PULSE 60; RESP 17; TEMP 97; O2SAT 98
[2016-12-12 16:00] VITALS: BP 120/74; PULSE 66; RESP 16; TEMP 96.8; O2SAT 99
[2016-12-12 20:00] VITALS: BP 129/66; PULSE 65; RESP 18; TEMP 97.8; O2SAT 97
[2016-12-13 00:47] VITALS: BP 112/64; PULSE 69; RESP 18; TEMP 97.2; O2SAT 98
[2016-12-13] MEDS: CARISOPRODOL 350 MG TAB PO PRN ×3 (02:22→17:58)
[2016-12-13] MEDS: ENOXAPARIN SODIUM 60 MG/0.6 ML SYRINGE SQ SCH ×2 (02:23→17:59)
[2016-12-13 08:00] VITALS: BP 112/61; PULSE 66; RESP 17; TEMP 96.8; O2SAT 97
[2016-12-13] MEDS: POLYETHYLENE GLYCOL 17 GM PKG PO SCH (09:00)
[2016-12-13] MEDS: FUROSEMIDE 20 MG TAB PO SCH ×2 (09:00→16:00)
[2016-12-13] MEDS: MULTIVITAMINS/IRON/MINERALS CHEWABLE TAB CHEW SCH (09:00)
[2016-12-13] MEDS: NEOMYCIN/POLYMYXIN/BACITRACIN OINT 15 GM TUBE TOPICAL SCH ×2 (09:00→21:00)
[2016-12-13] MEDS: LACTIC ACID (AMMONIUM LACTATE) 12% LOTION 225 GM BTL TOPICAL SCH ×2 (09:00→21:00)
[2016-12-13] MEDS: MUPIROCIN 2% OINT 22 GM TUBE TOPICAL SCH ×2 (09:00→21:00)
[2016-12-13] MEDS: FAMOTIDINE 20 MG TAB PO SCH ×2 (09:59→21:56)
[2016-12-13] MEDS: FERROUS SULFATE 325 MG (65 MG ELEMENTAL IRON) TAB PO SCH ×3 (09:59→17:59)
[2016-12-13] MEDS: DULoxetine HCl DR 30 MG CAP PO SCH (10:00)
[2016-12-13] MEDS: METOPROLOL TARTRATE 25 MG TAB PO SCH ×2 (10:00→21:56)
[2016-12-13] MEDS: ASCORBIC ACID 500 MG TAB PO SCH ×3 (10:00→17:59)
[2016-12-13] MEDS: CALCIUM/VITAMIN D 250 MG/125 U TAB PO SCH ×2 (10:00→21:56)
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
--- NOTE | 2016-12-13 11:48 | HHI.PR ---
Neuropsych Emotional Emotional: Intact: Emotional, Depressed/Sad, Hostile/Resentful, Irritable/Angry /Frustrate, Labile, Constricted/Blunted, Moderate: Anxious/Fearful Behavior Behavior: Intact: Behavior, Coping/Acceptance, Cooperative w/ Treatment, Motivation, Frustration Tolerance/[place], Impulsive/Agitated, Suicidal/Homicidal Risk Cognitive Cognitive: Intact: Cognitive, Attention/Concentration, Confused/Orientation, Insight/Awareness, Judgement/Problem-Solving, Memory Psychosocial Psychosocial: Moderate: Psychosocial, Family/Other Adjustment, Realistic Expectation, Self-Esteem/Confidence Progress Notes/Response to Tx Contents of Sessions: Adjustment Time with Patient: 30 minutes Premorbid psychological status Premorbid Cognitive, Emotional and Behavioral Status: Stable. The patient has high school years of education and a solid work history prior to this injury. The patient has no known psychiatric difficulties, as described above. He has been treated for depression since his admission. Substance abuse history is currently unremarkable. Behavioral Reactions of Patient and Family/Support System: Stable. The patient s family is experiencing ongoing issues of adjustment given the nature of the injury, and this aspect of recovery will require ongoing monitoring. Emotional/Behavioral Status of Patient and Family/Support System: Stable. Pertinent issues, if appropriate to this patients clinical care, are described in detail above. Maximizing acute care outcome This patient has been hospitalized for over a year. He has significant anxiety issues related to falling. He has a prior history of antisocial personality disorder with incarceration in the past, but he has been relatively stable since his release. He will need psychological follow-up as we work on the transition to getting consistently OOB and transfer to [facility] for more comprehensive rehabilitation. Anticipated Problems Ongoing areas of concern will include anger, behavioral impulsivity, lack of insight and judgment, which is expected to improve with time and treatment. Treatment Plan This clinician will continue to follow with you throughout the course of this patients rehabilitation treatment, and I will be available to meet with the patients family/support system to facilitate their understanding and the ongoing care of their family member. The goals of neuropsychological intervention shall be both educational and supportive to the family/support system as is deemed clinically appropriate. Impression 41 year old morbidly obese male with complicated medical history resulting in his hospitalization here at [place] for over one year. Diagnosis: (1) Antisocial personality disorder in adult (2) Anxiety disorder, unspecified Status: Acute Progress Note Narrative Ongoing follow-up of patient seen bedside. Discussion with OT bedside, and also cert occupational therapy asst earlier in the day. The patient continues to be motivated to increase his PT participation. He reported that he feels his anxiety medication is working too well and that he is very lethargic after physical therapy. His Klonopin is a PRN, and discuss with him that we may attempt a basic experiment that he may wish to hold medication prior to next Saturday therapy to see if there is an effect on his anxiety. He is compliant and cooperative. I will continue to follow. Problem Qualifiers (1) Anxiety disorder, unspecified: Qualified Codes: F41.1 - Generalized anxiety disorder John Troncoso PhD Dec 13, 2016 11:48 am
[2016-12-13 12:00] VITALS: BP 117/65; PULSE 72; RESP 18; TEMP 96.9; O2SAT 97
[2016-12-13 16:00] VITALS: BP 115/70; PULSE 68; RESP 19; TEMP 97.1; O2SAT 96
[2016-12-13 20:00] VITALS: BP 127/70; PULSE 60; RESP 18; TEMP 96.3; O2SAT 97
[2016-12-14] VITALS: BP 116/54; PULSE 64; RESP 18; TEMP 96.5; O2SAT 99
[2016-12-14] MEDS: ENOXAPARIN SODIUM 60 MG/0.6 ML SYRINGE SQ SCH ×2 (04:55→15:54)
[2016-12-14] MEDS: CARISOPRODOL 350 MG TAB PO PRN ×3 (05:00→21:59)
[2016-12-14 08:00] VITALS: BP 113/71; PULSE 71; RESP 16; TEMP 96.6; O2SAT 97
[2016-12-14] MEDS: MUPIROCIN 2% OINT 22 GM TUBE TOPICAL SCH ×2 (09:00→21:00)
[2016-12-14] MEDS: POLYETHYLENE GLYCOL 17 GM PKG PO SCH (09:00)
[2016-12-14] MEDS: FUROSEMIDE 20 MG TAB PO SCH ×2 (09:00→16:00)
[2016-12-14] MEDS: LACTIC ACID (AMMONIUM LACTATE) 12% LOTION 225 GM BTL TOPICAL SCH ×2 (09:00→21:00)
[2016-12-14] MEDS: NEOMYCIN/POLYMYXIN/BACITRACIN OINT 15 GM TUBE TOPICAL SCH ×2 (09:00→21:00)
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
[2016-12-14] MEDS: ASCORBIC ACID 500 MG TAB PO SCH ×3 (10:16→18:07)
[2016-12-14] MEDS: FERROUS SULFATE 325 MG (65 MG ELEMENTAL IRON) TAB PO SCH ×3 (10:16→18:07)
[2016-12-14] MEDS: MULTIVITAMINS/IRON/MINERALS CHEWABLE TAB CHEW SCH (10:16)
[2016-12-14] MEDS: METOPROLOL TARTRATE 25 MG TAB PO SCH ×2 (10:16→21:58)
[2016-12-14] MEDS: CALCIUM/VITAMIN D 250 MG/125 U TAB PO SCH ×2 (10:16→21:58)
[2016-12-14] MEDS: FAMOTIDINE 20 MG TAB PO SCH ×2 (10:16→21:58)
[2016-12-14] MEDS: DULoxetine HCl DR 30 MG CAP PO SCH (10:16)
[2016-12-14] MEDS: clonazePAM 0.5 MG TAB PO PRN (11:09)
[2016-12-14 12:00] VITALS: BP 119/68; PULSE 70; RESP 18; TEMP 97.8; O2SAT 99
--- NOTE | 2016-12-14 12:22 | HHI.PR ---
Neuropsych Emotional Emotional: Severe: Anxious/Fearful Behavior Behavior: Intact: Coping/Acceptance, Cooperative w/ Treatment, Motivation Cognitive Cognitive: Intact: Cognitive, Attention/Concentration, Confused/Orientation, Insight/Awareness, Judgement/Problem-Solving, Memory Psychosocial Psychosocial: Severe: Psychosocial, Family/Other Adjustment, Realistic Expectation, Unable to Asses: Self-Esteem/Confidence Progress Notes/Response to Tx Time with Patient: 1 hour Premorbid psychological status Premorbid Cognitive, Emotional and Behavioral Status: Stable. The patient has high school years of education and a solid work history prior to this injury. The patient has no known psychiatric difficulties, as described above. He has been treated for depression since his admission. Substance abuse history is currently unremarkable. Behavioral Reactions of Patient and Family/Support System: Stable. The patient s family is experiencing ongoing issues of adjustment given the nature of the injury, and this aspect of recovery will require ongoing monitoring. Emotional/Behavioral Status of Patient and Family/Support System: Stable. Pertinent issues, if appropriate to this patients clinical care, are described in detail above. Maximizing acute care outcome This patient has been hospitalized for over a year. He has significant anxiety issues related to falling. He has a prior history of antisocial personality disorder with incarceration in the past, but he has been relatively stable since his release. He will need psychological follow-up as we work on the transition to getting consistently OOB and transfer to [facility] for more comprehensive rehabilitation. Anticipated Problems Ongoing areas of concern will include anger, behavioral impulsivity, lack of insight and judgment, which is expected to improve with time and treatment. Treatment Plan This clinician will continue to follow with you throughout the course of this patients rehabilitation treatment, and I will be available to meet with the patients family/support system to facilitate their understanding and the ongoing care of their family member. The goals of neuropsychological intervention shall be both educational and supportive to the family/support system as is deemed clinically appropriate. Impression 41 year old morbidly obese male with complicated medical history resulting in his hospitalization here at [place] for over one year. Diagnosis: (1) Antisocial personality disorder in adult (2) Anxiety disorder, unspecified Status: Acute Progress Note Narrative Ongoing follow-up of patient seen bedside along with PT, with my input to facilitate anxiety management as he learns to perform transfers in anticipation of his transfer to [facility]. The patient did well today, and was amply rewarded for his efforts. He did more today to complete a bed to wheelchair transfer than he has since his admission. I note that his Klonopin dosage remained the same, and his Cymbalta dose was decreased to 20 mg in light of his complaint of lethargy. I will continue to follow. Problem Qualifiers (1) Anxiety disorder, unspecified: Qualified Codes: F41.1 - Generalized anxiety disorder John Troncoso PhD Dec 14, 2016 12:22 pm
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
[2016-12-14 20:00] VITALS: BP 114/57; PULSE 65; RESP 18; TEMP 96.7; O2SAT 93
[2016-12-15] VITALS: BP 125/56; PULSE 71; RESP 18; TEMP 96.7; O2SAT 97
[2016-12-15] MEDS: ENOXAPARIN SODIUM 60 MG/0.6 ML SYRINGE SQ SCH ×2 (00:53→17:15)
[2016-12-15 08:00] VITALS: BP 106/59; PULSE 53; RESP 16; TEMP 96.6; O2SAT 97
[2016-12-15] MEDS: LACTIC ACID (AMMONIUM LACTATE) 12% LOTION 225 GM BTL TOPICAL SCH ×2 (09:00→21:00)
[2016-12-15] MEDS: MUPIROCIN 2% OINT 22 GM TUBE TOPICAL SCH ×2 (09:00→21:00)
[2016-12-15] MEDS: METOPROLOL TARTRATE 25 MG TAB PO SCH ×2 (09:00→20:14)
[2016-12-15] MEDS: FUROSEMIDE 20 MG TAB PO SCH ×2 (09:00→17:17)
[2016-12-15] MEDS: NEOMYCIN/POLYMYXIN/BACITRACIN OINT 15 GM TUBE TOPICAL SCH ×2 (09:00→21:00)
[2016-12-15] MEDS: CARISOPRODOL 350 MG TAB PO PRN ×2 (10:17→18:27)
[2016-12-15] MEDS: clonazePAM 0.5 MG TAB PO PRN (10:17)
[2016-12-15] MEDS: FAMOTIDINE 20 MG TAB PO SCH ×2 (10:18→20:14)
[2016-12-15] MEDS: ASCORBIC ACID 500 MG TAB PO SCH ×3 (10:18→17:17)
[2016-12-15] MEDS: FERROUS SULFATE 325 MG (65 MG ELEMENTAL IRON) TAB PO SCH ×3 (10:18→17:17)
[2016-12-15] MEDS: DULoxetine HCl DR 20 MG CAP PO SCH (10:18)
[2016-12-15] MEDS: CALCIUM/VITAMIN D 250 MG/125 U TAB PO SCH ×2 (10:19→20:14)
[2016-12-15] MEDS: MULTIVITAMINS/IRON/MINERALS CHEWABLE TAB CHEW SCH (10:19)
[2016-12-15] MEDS: POLYETHYLENE GLYCOL 17 GM PKG PO SCH (10:19)
[2016-12-15 12:00] VITALS: BP 115/55; PULSE 74; RESP 18; TEMP 95.4; O2SAT 98
[2016-12-15 16:00] VITALS: BP 108/56; PULSE 64; RESP 16; TEMP 96.7; O2SAT 98
[2016-12-15 20:00] VITALS: BP 129/67; PULSE 68; RESP 16; TEMP 96.4; O2SAT 98
[2016-12-16 00:28] VITALS: BP 117/56; PULSE 68; RESP 16; TEMP 96.9; O2SAT 97
[2016-12-16] MEDS: CARISOPRODOL 350 MG TAB PO PRN ×3 (03:43→23:37)
[2016-12-16] MEDS: ENOXAPARIN SODIUM 60 MG/0.6 ML SYRINGE SQ SCH ×2 (03:44→17:21)
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
[2016-12-16 08:00] VITALS: BP 127/93; PULSE 70; RESP 17; TEMP 95.7; O2SAT 97
[2016-12-16] MEDS: DULoxetine HCl DR 20 MG CAP PO SCH (09:00)
[2016-12-16] MEDS: FUROSEMIDE 20 MG TAB PO SCH ×2 (09:00→16:00)
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
[2016-12-16] MEDS: MULTIVITAMINS/IRON/MINERALS CHEWABLE TAB CHEW SCH (10:47)
[2016-12-16] MEDS: FERROUS SULFATE 325 MG (65 MG ELEMENTAL IRON) TAB PO SCH ×3 (10:47→17:20)
[2016-12-16] MEDS: CALCIUM/VITAMIN D 250 MG/125 U TAB PO SCH ×2 (10:47→22:12)
[2016-12-16] MEDS: ASCORBIC ACID 500 MG TAB PO SCH ×3 (10:47→17:20)
[2016-12-16] MEDS: METOPROLOL TARTRATE 25 MG TAB PO SCH ×2 (10:48→22:12)
[2016-12-16] MEDS: FAMOTIDINE 20 MG TAB PO SCH ×2 (10:48→22:12)
[2016-12-16] MEDS: clonazePAM 0.5 MG TAB PO PRN (10:49)
[2016-12-16] MEDS: POLYETHYLENE GLYCOL 17 GM PKG PO SCH (11:18)
[2016-12-16] MEDS: MUPIROCIN 2% OINT 22 GM TUBE TOPICAL SCH ×2 (11:19→21:00)
[2016-12-16] MEDS: LACTIC ACID (AMMONIUM LACTATE) 12% LOTION 225 GM BTL TOPICAL SCH ×2 (11:19→21:00)
[2016-12-16] MEDS: NEOMYCIN/POLYMYXIN/BACITRACIN OINT 15 GM TUBE TOPICAL SCH ×2 (11:19→21:00)
[2016-12-16 12:00] VITALS: BP 111/58; PULSE 65; RESP 18; TEMP 96.4; O2SAT 97
[2016-12-16 16:00] VITALS: BP 102/59; PULSE 69; RESP 16; TEMP 96; O2SAT 97
[2016-12-16 20:00] VITALS: BP 138/78; PULSE 72; RESP 18; TEMP 99; O2SAT 99
[2016-12-17 00:31] VITALS: BP 140/59; PULSE 69; RESP 18; TEMP 97; O2SAT 98
[2016-12-17] MEDS: ENOXAPARIN SODIUM 60 MG/0.6 ML SYRINGE SQ SCH ×2 (05:55→17:45)
[2016-12-17 08:00] VITALS: BP 113/57; PULSE 62; RESP 16; TEMP 95.8; O2SAT 98
[2016-12-17] MEDS: FUROSEMIDE 20 MG TAB PO SCH ×2 (09:00→16:00)
[2016-12-17] MEDS: NEOMYCIN/POLYMYXIN/BACITRACIN OINT 15 GM TUBE TOPICAL SCH ×2 (09:00→21:00)
[2016-12-17] MEDS: POLYETHYLENE GLYCOL 17 GM PKG PO SCH (09:00)
[2016-12-17] MEDS: MUPIROCIN 2% OINT 22 GM TUBE TOPICAL SCH ×2 (09:00→21:00)
[2016-12-17] MEDS: LACTIC ACID (AMMONIUM LACTATE) 12% LOTION 225 GM BTL TOPICAL SCH ×2 (09:00→21:00)
[2016-12-17] MEDS: CARISOPRODOL 350 MG TAB PO PRN ×2 (09:16→17:44)
[2016-12-17] MEDS: DULoxetine HCl DR 20 MG CAP PO SCH (09:17)
[2016-12-17] MEDS: FAMOTIDINE 20 MG TAB PO SCH ×2 (09:17→22:19)
[2016-12-17] MEDS: FERROUS SULFATE 325 MG (65 MG ELEMENTAL IRON) TAB PO SCH ×3 (09:17→17:44)
[2016-12-17] MEDS: METOPROLOL TARTRATE 25 MG TAB PO SCH ×2 (09:17→22:19)
[2016-12-17] MEDS: ASCORBIC ACID 500 MG TAB PO SCH ×3 (09:17→17:44)
[2016-12-17] MEDS: MULTIVITAMINS/IRON/MINERALS CHEWABLE TAB CHEW SCH (09:17)
[2016-12-17] MEDS: CALCIUM/VITAMIN D 250 MG/125 U TAB PO SCH ×2 (09:18→22:19)
[2016-12-17] MEDS: PILL SPLITTER OTHER PRN (10:31)
[2016-12-17] MEDS: clonazePAM 0.5 MG TAB PO PRN (10:31)
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
--- NOTE | 2016-12-17 15:39 | HHI.PR ---
Neuropsych Emotional Emotional: Moderate: Anxious/Fearful Behavior Behavior: Intact: Behavior, Coping/Acceptance, Cooperative w/ Treatment, Motivation, Frustration Tolerance/[place], Impulsive/Agitated, Suicidal/Homicidal Risk Cognitive Cognitive: Intact: Cognitive, Attention/Concentration, Confused/Orientation, Insight/Awareness, Judgement/Problem-Solving, Memory Psychosocial Psychosocial: Severe: Psychosocial, Family/Other Adjustment, Realistic Expectation, Unable to Asses: Self-Esteem/Confidence Progress Notes/Response to Tx Contents of Sessions: Adjustment Time with Patient: 1 hour Premorbid psychological status Premorbid Cognitive, Emotional and Behavioral Status: Stable. The patient has high school years of education and a solid work history prior to this injury. The patient has no known psychiatric difficulties, as described above. He has been treated for depression since his admission. Substance abuse history is currently unremarkable. Behavioral Reactions of Patient and Family/Support System: Stable. The patient s family is experiencing ongoing issues of adjustment given the nature of the injury, and this aspect of recovery will require ongoing monitoring. Emotional/Behavioral Status of Patient and Family/Support System: Stable. Pertinent issues, if appropriate to this patients clinical care, are described in detail above. Maximizing acute care outcome This patient has been hospitalized for over a year. He has significant anxiety issues related to falling. He has a prior history of antisocial personality disorder with incarceration in the past, but he has been relatively stable since his release. He will need psychological follow-up as we work on the transition to getting consistently OOB and transfer to [facility] for more comprehensive rehabilitation. Anticipated Problems Ongoing areas of concern will include anger, behavioral impulsivity, lack of insight and judgment, which is expected to improve with time and treatment. Treatment Plan This clinician will continue to follow with you throughout the course of this patients rehabilitation treatment, and I will be available to meet with the patients family/support system to facilitate their understanding and the ongoing care of their family member. The goals of neuropsychological intervention shall be both educational and supportive to the family/support system as is deemed clinically appropriate. Impression 41 year old morbidly obese male with complicated medical history resulting in his hospitalization here at [facility] for over one year. Diagnosis: (1) Antisocial personality disorder in adult (2) Anxiety disorder, unspecified Status: Acute Progress Note Narrative Ongoing follow-up of patient seen bedside, co-treatment with PT. Patient is calm, compliant with therapeutic participation. Efforts were successfully made to facilitate anxiety management with physical therapy intervention. He is scheduled to transfer to [facility] tomorrow. I will continue to follow. Problem Qualifiers (1) Anxiety disorder, unspecified: Qualified Codes: F41.1 - Generalized anxiety disorder John Troncoso PhD Dec 17, 2016 3:39 pm
[2016-12-17 16:00] VITALS: BP 114/58; PULSE 64; RESP 18; TEMP 96.1; O2SAT 100
[2016-12-17 20:24] VITALS: BP 110/55; PULSE 72; RESP 20; TEMP 97.3; O2SAT 99
[~2016-12-18] VITALS: Ht 195.6 cm; Wt 136.2 kg
[2016-12-18 00:36] VITALS: BP 102/53; PULSE 65; RESP 18; TEMP 97.6; O2SAT 98
[2016-12-18] MEDS: CARISOPRODOL 350 MG TAB PO PRN ×2 (02:09→10:20)
[2016-12-18] MEDS: ENOXAPARIN SODIUM 60 MG/0.6 ML SYRINGE SQ SCH (04:00)
[2016-12-18 08:00] VITALS: BP 144/72; PULSE 61; RESP 18; TEMP 97.1; O2SAT 99
[2016-12-18] MEDS: MUPIROCIN 2% OINT 22 GM TUBE TOPICAL SCH (09:00)
[2016-12-18] MEDS: POLYETHYLENE GLYCOL 17 GM PKG PO SCH (09:00)
[2016-12-18] MEDS: FUROSEMIDE 20 MG TAB PO SCH (09:00)
[2016-12-18] MEDS: LACTIC ACID (AMMONIUM LACTATE) 12% LOTION 225 GM BTL TOPICAL SCH (09:00)
[2016-12-18] MEDS: NEOMYCIN/POLYMYXIN/BACITRACIN OINT 15 GM TUBE TOPICAL SCH (09:00)
[2016-12-18] MEDS: FERROUS SULFATE 325 MG (65 MG ELEMENTAL IRON) TAB PO SCH (09:01)
[2016-12-18] MEDS: MULTIVITAMINS/IRON/MINERALS CHEWABLE TAB CHEW SCH (09:01)
[2016-12-18] MEDS: CALCIUM/VITAMIN D 250 MG/125 U TAB PO SCH (09:01)
[2016-12-18] MEDS: DULoxetine HCl DR 20 MG CAP PO SCH (09:01)
[2016-12-18] MEDS: ASCORBIC ACID 500 MG TAB PO SCH (09:01)
[2016-12-18] MEDS: FAMOTIDINE 20 MG TAB PO SCH (09:02)
[2016-12-18] MEDS: METOPROLOL TARTRATE 25 MG TAB PO SCH (09:03)
[2016-12-18] MEDS: clonazePAM 0.5 MG TAB PO PRN (11:09)
[~2016-12-18 11:30] MED LIST: *HYDROmorphone PF 1 MG VIAL PERIprocedural Use ONLY ONE; *morphine SULFATE 8 MG/ML PERIprocedure ONLY ONE; ACETAMINOPHEN 1000 MG/100 ML VIAL IV ONE; ACETAMINOPHEN/HYDROcodone 325 MG/5 MG TAB PO PRN; BACT800T5 PO; BISA5TAB PO; BISACODYL 10 MG SUPP PR PRN; BISACODYL 10 MG SUPP RECTAL ONE; BISACODYL 10 MG SUPP RECTAL PRN; BISACODYL 10 MG SUPP RECTAL SCH; BISACODYL EC 5 MG TABEC PO ONE; BISACODYL EC 5 MG TABEC PO PRN; BISACODYL EC 5 MG TABEC PO SCH; BUMETANIDE INJ 1 MG/4 ML VIAL IV PUSH ONE; BUPR100T4 PO; CALC250 PO; CARISOPRODOL 350 MG TAB PO ONE; CHLORHEXIDINE GLUCONATE 2 % 1 PACK (2 CLOTHS) TOP PRN; CHOLESTYRAMINE 4 GM PACKET PO ONE; CIPROFLOXACIN 400 MG PREMIX 200 ML IV SCH; CLIN1CAP5 PO; DEXMEDETOMIDINE INJ 1,000 MCG in SODIUM CHLOR 0.9% 250 ML INJ 240 ML IV SCH; DIATRIZOATE MEGLUM/DIATRIZOATE SOD 9 ML CUP PO ONE; DILA8TAB4 PO; DIPHENOXYLATE/ATROPINE 2.5 MG/0.025 MG TAB PO ONE; DIPHENOXYLATE/ATROPINE 2.5 MG/0.025 MG TAB PO PRN; DO NOT ADM ANY ANTICOAGULANT DRUGS XX PRN; ENALAPRILAT 1.25 MG/ML VIAL IV PRN; ENOXAPARIN SODIUM 40 MG/0.4 ML SYRINGE SQ SCH; FERR325T20 PO; FLEE5TAB PO; FURO20TA PO; FUROSEMIDE 20 MG TAB PO ONE; GELFOAM SIZE 100 ONE; GENTAMICIN SULFATE 80 MG/2 ML VIAL ONE; HEPARIN SODIUM - SQ 10,000 UNITS/ML VIAL ONE; HYDROmorphone HCL PF 1 MG/ML VIAL IV PRN; INSULIN HUMAN SQ PRN; IOHEXOL 350 MG/ML 50 ML BTL (for RAD DIAG) IV ONE; KETAMINE HCL 500 MG/5 ML VIAL ONE; KETOROLAC TROMETHAMINE 30 MG/ML (IVP) VIAL IV PUSH ONE; KETOROLAC TROMETHAMINE 60 MG/2 ML (IM) VIAL IM ONE; LACTATED RINGER'S 1000 ML INJ 1,000 ML IV ONE; LACTOBACILLUS ACIDOPHILUS TAB PO ONE; LACTOBACILLUS ACIDOPHILUS TAB PO PRN; LACTOBACILLUS ACIDOPHILUS TAB PO SCH; LIDOCAINE 1%/EPINEPHrine 1:100,000 SOLN 50 ML VIAL ONE; LORazepam 0.5 MG TAB PO PRN; LR 1000 ML IV SCH; MECLIZINE HCL 25 MG TAB PO ONE; MECLIZINE HCL 25 MG TAB PO PRN; METO25TA3 PO; METOCLOPRAMIDE HCL 10 MG/2 ML VIAL IM PRN; METOCLOPRAMIDE HCL 10 MG/2 ML VIAL IV ONE; METOPROLOL TARTRATE 25 MG TAB PO PRN; MIDAZOLAM HCL 2 MG/2 ML VIAL ONE; MISCELLANEOUS NURSING INFORMATION XX PRN; MISCELLANEOUS NURSING INFORMATION XX SCH; MISCELLANEOUS PHARMACY INFORMATION XX ONE; MORPHINE SULFATE 30 MG/30 ML PCA IV SCH; MORPHINE SULFATE 4 MG/ML INJ IV PUSH PRN; MULTTAB67 PO; NALOXONE HCL 0.4 MG/ML AMP IV PRN; NORMOSOL R INJ 3,000 ML IV ONE; NS 500 ML IV SCH; ONDANSETRON HCL 4 MG/2 ML VIAL IV PUSH ONE; ONDANSETRON HCL 4 MG/2 ML VIAL IVP PRN; OXYC-392 PO; POLYETHYLENE GLYCOL 17 GM PKG PO ONE; POLYETHYLENE GLYCOL 17 GM PKG PO PRN; POTASSIUM CHLORIDE 10 MEQ CONTROLLED RELEASE TAB PO ONE; POTASSIUM CHLORIDE 20 MEQ CONTROLLED RELEASE TAB PO ONE; POTASSIUM CL 40 MEQ/30 ML LIQ UDC PO ONE; PROPOFOL 1000 MG/100 ML INJ 100 ML ONE; PROPOFOL 200 MG/20 ML AMP IV ONE; Post-op Orders (for Pharmacy) MISC XX ONE; RANI150 PO; RANI150T PO; RANITIDINE 50 MG/2 ML VIAL ONE; RESP: ALBUTEROL 2.5 MG/IPRATROPIUM 0.5 MG NEB (PRN) INH; SIMETHICONE 125 MG CHEWABLE TAB PO PRN; SOD PHOSPHATE/SOD BIPHOSPHATE (ADULT) ENEMA 133ML PR ONE; SODIUM CHLOR 0.9% 1000 ML INJ 1,000 ML IV ONE; SODIUM CHLOR 0.9% 1000 ML INJ 1,000 ML IV SCH; SODIUM CHLOR 0.9% 250 ML INJ 250 ML IV ONE; SODIUM CHLOR 0.9% 250 ML INJ 250 ML ONE; SODIUM CHLORIDE 0.9% FLUSH 5 ML FLUSH IVF PRN; SODIUM CHLORIDE 0.9% FLUSH 5 ML FLUSH IVF SCH; SUGAMMADEX SODIUM 200 MG/2 ML VIAL IV PUSH ONE; TAB-TAB PO; THROMBIN (TOPICAL) 5,000 UNIT VIAL ONE; TRANEXAMIC ACID INJ 2,000 MG in SODIUM CHLORIDE 0.9% INJ 100 ML IV SCH; VANCOMYCIN HCL 1000 MG VIAL ONE; VITA500T2 PO; ceFAZolin 2 GM PREMIX 50 ML IV SCH; cloNIDine HCL 0.1 MG TAB PO PRN; fentaNYL CITRATE 250 MCG/5 ML AMP ONE; hydrOXYzine HCL 25 MG TAB PO PRN
--- NOTE | 2016-12-18 11:51 | HHI.PR ---
Neuropsych Emotional Emotional: Intact: Emotional, Depressed/Sad, Hostile/Resentful, Irritable/Angry /Frustrate, Labile, Constricted/Blunted, Severe: Anxious/Fearful Behavior Behavior: Intact: Behavior, Coping/Acceptance, Cooperative w/ Treatment, Motivation, Frustration Tolerance/Luxor, Impulsive/Agitated, Suicidal/Homicidal Risk Cognitive Cognitive: Intact: Cognitive, Attention/Concentration, Confused/Orientation, Insight/Awareness, Judgement/Problem-Solving, Memory Psychosocial Psychosocial: Mild: Self-Esteem/Confidence, Moderate: Psychosocial, Family/ Other Adjustment, Realistic Expectation Progress Notes/Response to Tx Contents of Sessions: Adjustment Time with Patient: 1 hour Premorbid psychological status Premorbid Cognitive, Emotional and Behavioral Status: Stable. The patient has high school years of education and a solid work history prior to this injury. The patient has no known psychiatric difficulties, as described above. He has been treated for depression since his admission. Substance abuse history is currently unremarkable. Behavioral Reactions of Patient and Family/Support System: Stable. The patient s family is experiencing ongoing issues of adjustment given the nature of the injury, and this aspect of recovery will require ongoing monitoring. Emotional/Behavioral Status of Patient and Family/Support System: Stable. Pertinent issues, if appropriate to this patients clinical care, are described in detail above. Maximizing acute care outcome This patient has been hospitalized for over a year. He has significant anxiety issues related to falling. He has a prior history of antisocial personality disorder with incarceration in the past, but he has been relatively stable since his release. He will need psychological follow-up as we work on the transition to getting consistently OOB and transfer to [facility] for more comprehensive rehabilitation. Anticipated Problems Ongoing areas of concern will include anger, behavioral impulsivity, lack of insight and judgment, which is expected to improve with time and treatment. Treatment Plan This clinician will continue to follow with you throughout the course of this patients rehabilitation treatment, and I will be available to meet with the patients family/support system to facilitate their understanding and the ongoing care of their family member. The goals of neuropsychological intervention shall be both educational and supportive to the family/support system as is deemed clinically appropriate. Impression 41 year old morbidly obese male with complicated medical history resulting in his hospitalization here at [facility] for over one year. Diagnosis: (1) Antisocial personality disorder in adult (2) Anxiety disorder, unspecified Status: Acute Progress Note Narrative Ongoing follow-up of patient seen bedside prior to his transfer to [facility]. Patient was excited but anxious about his transfer, in excellent spirits. As a team we worked to pack up his belongings and physically move him to [facility]. I will continue to follow him once he gets to [facility]. I provided him psychological support and encouragement. Problem Qualifiers (1) Anxiety disorder, unspecified: Qualified Codes: F41.1 - Generalized anxiety disorder John Trnocoso PhD Dec 18, 2016 11:51 am
--- NOTE | 2016-12-18 13:23 | HHI.PR ---
Subjective Remarks Doing well today. Medically cleared and discharged on 12/03/16 for inpatient rehab. Transfer to rehab today. Objective Vital Signs Date Time Temp Pulse Resp B/P (MAP) Pulse Ox O2 Delivery O2 Flow Rate FiO2 12/18/16 08:00 97.1 61 18 144/72 (96) 99 12/18/16 00:36 97.6 65 18 102/53 (69) 98 12/17/16 20:24 97.3 72 20 110/55 (73) 99 12/17/16 16:00 96.1 64 18 114/58 (76) 100 I/O 12/17/16 12/17/16 12/17/16 12/18/16 12/18/16 12/18/16 07:00 15:00 23:00 07:00 15:00 23:00 Intake Total 2000 ml Output Total 1300 ml 1150 ml Balance -1300 ml 850 ml Intake Oral 2000 ml Output Urine Total 1300 ml 1150 ml # Bowel Movements 0 Procedures Urinary catheter changed 08/18/16 sp IVC filter placement 09/2015 Pt reported urinary catheter removed 10/15/16. Objective Remarks GENERAL: NAD, A&Ox3, obese HEAD: Normocephalic. NECK: Supple, trachea midline. No lymphadenopathy. EYES: No scleral icterus. No injection or drainage. CARDIOVASCULAR: Regular rate and rhythm without murmurs, gallops, or rubs. RESPIRATORY: Breath sounds equal bilaterally. No accessory muscle use. GASTROINTESTINAL: Abdomen soft, non-tender, nondistended. MUSCULOSKELETAL: No cyanosis, or edema. SKIN: Warm and dry. 6 cm cystic lesion at left medial lower thigh. 2 x 3 cm ulceration has developed since last seen. No obvious fluctuance. No erythema around the mass. NEURO: No focal neurological deficitis. A/P Problem List: (1) T9 vertebral fracture ICD Code: S22.079A - Unspecified fracture of T9-T10 vertebra, initial encounter for closed fracture Status: Acute (2) Extensor tendon laceration, hand, open wound ICD Code: S66.829A - Laceration of other specified muscles, fascia and tendons at wrist and hand level, unspecified hand, initial encounter; S61.409A - Unspecified open wound of unspecified hand, initial encounter Status: Acute (3) Closed fracture of left distal femur ICD Code: S72.402A - Unspecified fracture of lower end of left femur, initial encounter for closed fracture Status: Acute (4) Trauma ICD Code: T14.90 - Injury, unspecified Status: Acute Assessment and Plan Assessment and Plan 40 y/o male status post trauma with a T9 fracture, left distal femur fracture, and tendon injury at right hand. Prolonged recovery with difficult PT and compliance issues with the patient. Doing well now. Continue PT at inpatient rehab, discharging there today. Medically clear for discharge. Cystic lesion on left leg Skin wounds/ulceration Lymphedema Improved Follow clinically LLE distal femur fx T9 vertebral body fracture s/p ORIF on 10/11/[address] Fabian Continue PT Intermittent tachycardia Stable Continue Lopressor 25mg Q12 Right 4th extensor tendon laceration; Surgery recommended by plastic surgeon Patient refuses surgery Lower extremity edema Resume leg wraps Lower extremity cramping and spasms: Continue Soma as needed Depression/Anxiety: Continue hydroxyzine Continue Wellbutrin Obesity More difficult recovery with ambulation Follow clinically Follow BMI Iron deficiency anemia microcytic anemia Hemoglobin stable Follow CBC Etiology likely related to trauma and blood loss Facial seborrheic dermatis: Ketoconazole cream apply bid DVT prophylaxis Lovenox 60mg Q12h. GI prop: Pepcid. Vitamin D deficiency Ergocalciferol 50,000 units PO q7D. Discharge Planning Plan for discharge home which is difficult as patient is nonambulatory Inability to ambulate make [facility] facility of poor option Problem Qualifiers (1) T9 vertebral fracture: (2) Closed fracture of left distal femur: Phillip Miles MD Dec 18, 2016 13:23
== END | DRG 956 ==
LOC: N03B 10-07 21:56 → MERGE 10-07 21:56 → OBSVTOIN 10-07 21:56 → N05A 10-09 17:59 → N03B 10-11 21:48 → N07B 10-17 18:01
PROVIDERS: ADMIT Hospitalist; ATTEND Hospitalist
PROC: 0T9B70Z Drainage of Bladder with Drainage Device, Via Natural or Artificial Opening (ICD-10-PCS; 2015-10-14)
PROC: 0T2BX0Z Change Drainage Device in Bladder, External Approach (ICD-10-PCS; 2015-11-03)
PROC: 0T2BX0Z Change Drainage Device in Bladder, External Approach (ICD-10-PCS; 2016-02-03)
PROC: 0T2BX0Z Change Drainage Device in Bladder, External Approach (ICD-10-PCS; 2016-06-01)
PROC: 0T2BX0Z Change Drainage Device in Bladder, External Approach (ICD-10-PCS; 2016-08-11)
PROC: 0QSC04Z Reposition Left Lower Femur with Internal Fixation Device, Open Approach (ICD-10-PCS; principal; 2016-10-10)
PROC: 06H03DZ Insertion of Intraluminal Device into Inferior Vena Cava, Percutaneous Approach (ICD-10-PCS; 2016-10-10)
PROC: 5A1935Z Respiratory Ventilation, Less than 24 Consecutive Hours (ICD-10-PCS; 2016-10-10)
PROC: 30233N1 Transfusion of Nonautologous Red Blood Cells into Peripheral Vein, Percutaneous Approach (ICD-10-PCS; 2016-10-10)
DX: S72.402A Unspecified fracture of lower end of left femur, initial encounter for closed fracture (principal); S27.2XXA Traumatic hemopneumothorax, initial encounter; R65.20 Severe sepsis without septic shock; J95.821 Acute postprocedural respiratory failure; J69.0 Pneumonitis due to inhalation of food and vomit; A41.9 Sepsis, unspecified organism; S12.200A Unspecified displaced fracture of third cervical vertebra, initial encounter for closed fracture; S22.079A Unspecified fracture of T9-T10 vertebra, initial encounter for closed fracture; N17.9 Acute kidney failure, unspecified; E66.2 Morbid (severe) obesity with alveolar hypoventilation; Z68.44 Body mass index [BMI] 60.0-69.9, adult; S22.39XA Fracture of one rib, unspecified side, initial encounter for closed fracture; S66.822A Laceration of other specified muscles, fascia and tendons at wrist and hand level, left hand, initial encounter; L97.129 Non-pressure chronic ulcer of left thigh with unspecified severity; A04.71 Enterocolitis due to Clostridium difficile, recurrent; E87.1 Hypo-osmolality and hyponatremia; N39.0 Urinary tract infection, site not specified; T83.518A Infection and inflammatory reaction due to other urinary catheter, initial encounter; I10 Essential (primary) hypertension; I87.8 Other specified disorders of veins; G89.29 Other chronic pain; F12.90 Cannabis use, unspecified, uncomplicated; F14.90 Cocaine use, unspecified, uncomplicated; V49.9XXA Car occupant (driver) (passenger) injured in unspecified traffic accident, initial encounter; Y92.9 Unspecified place or not applicable; M54.5 Low back pain; F43.21 Adjustment disorder with depressed mood; D32.9 Benign neoplasm of meninges, unspecified; M25.78 Osteophyte, vertebrae; T88.4XXA Failed or difficult intubation, initial encounter; T83.091A Other mechanical complication of indwelling urethral catheter, initial encounter; Y73.2 Prosthetic and other implants, materials and accessory gastroenterology and urology devices associated with adverse incidents; Z53.29 Procedure and treatment not carried out because of patient's decision for other reasons; S61.421A Laceration with foreign body of right hand, initial encounter; R00.0 Tachycardia, unspecified; D50.9 Iron deficiency anemia, unspecified; L21.9 Seborrheic dermatitis, unspecified; E55.9 Vitamin D deficiency, unspecified; K59.00 Constipation, unspecified; F40.240 Claustrophobia; F17.210 Nicotine dependence, cigarettes, uncomplicated; Y84.6 Urinary catheterization as the cause of abnormal reaction of the patient, or of later complication, without mention of misadventure at the time of the procedure; Z91.19 Patient's noncompliance with other medical treatment and regimen; H10.89 Other conjunctivitis; M62.838 Other muscle spasm; R19.5 Other fecal abnormalities; F60.2 Antisocial personality disorder; F41.1 Generalized anxiety disorder; L30.1 Dyshidrosis [pompholyx]; E87.6 Hypokalemia
CPT/HCPCS: 36430; 37191; 71010; 72020; 72128; 72131; 73120; 73560; 73564; 73700; 76000; 76882; 76937; 80048; 80053; 80074; 81001; 82272; 82306; 82550; 82607; 82746; 82805; 82948; 83540; 83550; 83605; 83735; 83921; 84100; 84132; 84165; 84425; 84439; 84443; 84481; 85007; 85014; 85018; 85025; 85027; 85652; 86038; 86403; 86592; 86850; 86900; 86901; 86920; 87040; 87070; 87077; 87086; 87106; 87147; 87186; 87205; 87207; 87328; 87329; 87493; 87506; 87641; 93005; 93306; 93970; 93971; 94003; 94150; 94640; 94664; 94667; 94668; 95819; 95861; C1713; C1769; C1880; C1887; C9113; C9399; J0131; J0690; J0744; J1170; J1580; J1644; J1650; J1885; J1956; J2250; J2270; J2405; J2543; J2765; J2780; J3010; J3370; J3480; J7030; J7050; J7120; P9016; Q9967